=== PATIENT | female | born 1950 | race Caucasian/White ===

== ENCOUNTER 2017-09-02 10:31 | Inpatient (IN) | payer OTHER ==
--- NOTE | 2017-09-02 11:21 | ED ---
Lower Extremity - HPI Summary HPI Summary: Patient here with prolonged redness, swelling and pain of her left lower extremity. Reports this started on Monday with an area of redness around her medial/proximal tibial area on LL. She was seen by PCP who diagnosed her with cellulitis and started her on Keflex which she's been taking ever since. She reports the redness initially spread from the medial/proximal tibial area down the leg and up into her posterior thigh - admits the redness and swelling has stopped progressing in her thigh since taking Keflex however she has more pronounced area of redness and swelling where symptoms initially started along her proximal/medial tibial area. She started with a fever of 102 Fahrenheit however this is been reducing each day. Additionally she took oxycodone prior to arrival today for pain which she reports is helping. She denies pain into groin, chest pain, shortness of breath, cough, back pain him a increased heart rate. No previous history of blood clots or pulmonary embolism. She has a chronic condition of her bilateral lower extremity causing skin discoloration which she reports happened after taking a course of meloxicam in the past. She DEVELOPED ACUTE BRIGHT RED SKIN OF HER LOWER EXTREMITIES FOLLOWED BY ULCERATIONS AND THIS WAS DECIDED TO BE AN ALLERGY TO MELOXICAM. SHE WAS FOLLOWED BY THE WOUND CLINIC FOR PERIOD OF TIME UNTIL acute wounds healed however she continues to have bashir indurated and swollen lower extremities. She takes furosemide and spironolactone to control her lower extremity edema routinely. Additionally she reports she has a history of diabetes for which she takes glipizide and byetta injection her glucose levels have been in the 150s which is good for her. She denies any fast increasing glucose levels since her lower extremity symptoms started. - History of Current Complaint Chief Complaint: EDExtremityLower Stated Complaint: LEFT KNEE PAIN Time Seen by Provider: 09/02/17 10:37 Hx Obtained From: Patient, Family/Order Booker - Daughter Pain Intensity: 10 - Allergies/Home Medications Allergies/Adverse Reactions: Allergies Allergy/AdvReac Type Severity Reaction Status Date / Time morphine Allergy Severe Anaphylatic Verified 09/02/17 10:33 Shock meloxicam Allergy Rash Verified 09/02/17 10:33 Penicillins Allergy Swelling Verified 09/02/17 10:33 sulfamethoxazole Allergy Unknown Verified 09/02/17 10:33 [From Bactrim] Reaction Details trimethoprim [From Bactrim] Allergy Unknown Verified 09/02/17 10:33 Reaction Details aspirin AdvReac CIRRHOSIS Verified 09/02/17 10:33 erythromycin base AdvReac Vomiting Verified 09/02/17 10:33 NSAIDS (Non-Steroidal AdvReac CIRRHOSIS Verified 09/02/17 10:33 Anti-Inflamma spironolactone AdvReac Unknown Verified 09/02/17 10:33 [From Aldactone] Reaction Details Sulfa (Sulfonamide AdvReac GI Upset Verified 09/02/17 10:33 Antibiotics) Home Medications: Home Medications Furosemide TAB* [Lasix TAB*] 80 mg PO TID 09/02/17 [History Confirmed 09/02/17] Insulin Glargine,Hum.rec.anlog [Basagljonnie Schilling] 20 unit SC DAILY@2100 [History Confirmed 09/02/17] PMH/Surg Hx/FS Hx/Imm Hx Previously Healthy: No - cellulitis LLE Endocrine/Hematology History: Reports: Hx Diabetes Cardiovascular History: Reports: Hx Hypertension Denies: Hx Pacemaker/ICD, Other Cardiovascular Problems/Disorders Respiratory History: Denies: Hx Chronic Obstructive Pulmonary Disease (COPD) GI History: Reports: 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, Hx Gastroesophageal Reflux Disease, Other GI Disorders - Esophageal varices History: Denies: Hx Renal Disease Musculoskeletal History: Reports: Hx Arthritis, Hx Back Problems - lumbar fusion in 1990, Other Musculoskeletal History - Restless leg syndrome Denies: Hx Osteoporosis Sensory History: Reports: Hx Cataracts - bilat, Hx Contacts or Glasses Denies: Hx Hearing Aid Opthamlomology History: Reports: Hx Cataracts - bilat, Hx Contacts or Glasses Neurological History: Reports: Hx Transient Ischemic Attacks (TIA) Psychiatric History: Reports: Hx Anxiety, Hx Depression Denies: Hx Panic Disorder - Cancer History Hx Chemotherapy: No Hx Radiation Therapy: No - Surgical History Surgery Procedure, Year, and Place: LUMBAR SPINAL FUSION 1990, tonsillectomy. TUBAL LIGATION. WISDOM TEETH. [facility] CATARACTS Hx Anesthesia Reactions: No Infectious Disease History: No Infectious Disease History: Denies: Hx of Known/Suspected MRSA, Traveled Outside the [place] in Last 30 Days - Family History Known Family History: Positive: Diabetes - Mother - Social History Lives: With Family - daughter Alcohol Use: None Alcohol Amount: Hx ETOH abuse, none currently Hx Substance Use: No Substance Use Type: Reports: None Hx Tobacco Use: Yes - not currently Smoking Status (MU): Former Smoker Type: Cigarettes Amount Used/How Often: 5 CIGS/DAY Length of Time of Smoking/Using Tobacco: 30 years Have You Smoked in the Last Year: Yes Review of Systems Positive: Fever. Negative: Chills, Fatigue Eyes: Negative ENT: Negative Cardiovascular: Negative Respiratory: Negative Gastrointestinal: Negative Positive: no symptoms reported Positive: Edema Skin: Other - cellulitis Neurological: Negative Psychological: Normal All Other Systems Reviewed And Are Negative: Yes Physical Exam Triage Information Reviewed: Yes Vital Signs On Initial Exam: Initial Vitals Temp Pulse Resp BP Pulse Ox 100.6 F 102 20 117/60 88 09/02/17 10:32 09/02/17 10:32 09/02/17 10:32 09/02/17 10:32 09/02/17 10:32 Vital Signs Reviewed: Yes Appearance: Positive: Well-Appearing, Pain Distress - mild, Obese Skin: Positive: Warm, Skin Color Reflects Adequate Perfusion, Dry - B/L LE ruddiness w/ thick skin - Lt LE w/ warm bright red tissue, most prominent about the medial proximal tibial region - no drainage, no vesicles but has early signs of superficial skin breakdown in this area - TTP Head/Face: Positive: Normal Head/Face Inspection Eyes: Positive: EOMI ENT: Positive: Hearing grossly normal Respiratory/Lung Sounds: Positive: Breath Sounds Present Cardiovascular: Positive: Pulses are Symmetrical in both Upper and Lower Extremities, Leg Edema Left Abdomen Description: Positive: Other: - full Musculoskeletal: Positive: Normal, Strength/ROM Intact - no knee pain or stiffness Neurological: Positive: Normal, Sensory/Motor Intact, Alert, Oriented to Person Place, Time, CN Intact II-III Psychiatric: Positive: Normal Diagnostics - Vital Signs Vital Signs Temp Pulse Resp BP Pulse Ox 09/02/17 10:32 100.6 F 102 20 117/60 88 - Laboratory Result Diagrams: 09/02/17 11:18 09/02/17 11:18 Lab Statement: Any lab studies that have been ordered have been reviewed, and results considered in the medical decision making process. Lower Extremity Course/Dx - Course Course Of Treatment: Labs and vitals indicate patient meets sepsis criteria therefore antibiotics and fluids were ordered. Fluids were provided under max per weight as patient is obese (30 mg/kg may overestimate her actual need) and she has fluid issues with her lower extremities/cirrhosis - possible ab acsites) . Her labs do indicate she is dry - 1L ordered now and discussed w/ Dr. Thomas for f/u as she will be admitted to [facility] in stable condition. Clindamycin was also added to cover MRSA as she has PCN allergy. U/S is neg for DVT, phlebitis. Pt and daughter agree w/ plan. NOTE: diabetic diet ordered for pt who is requesting lunch. Critical care time: 20 minutes - Diagnoses Provider Diagnoses: Left leg cellulitis Discharge - Sign-Out/Discharge Documenting (check all that apply): Discharge/Admit/Transfer - Discharge Plan Condition: Stable Disposition: ADMITTED TO [facility] Referrals: Estrada Richmond MD [Primary Care Provider] - - Billing Disposition and Condition Condition: STABLE Disposition: HOSP-[facility]
[2017-09-02 11:30] LABS: ABS Basophils 0.1 10^3/ul (0-0.2); ABS Eosinophils 0.2 10^3/ul (0-0.6); ABS Lymphocytes 0.7 10^3/ul (1.0-4.8); ABS Monocytes 0.4 10^3/ul (0-0.8); ABS Neutrophils 5.3 10^3/ul (1.5-7.7); ABS Nucleated RBC 0 10^3/ul; Eosinophil % 2.4 % (0-6); Hematocrit 37 % (35-47); Hemoglobin 12.2 g/dl (12.0-16.0); Lymphocyte % 10.3 % (25-47); Mean Corpuscular HGB Conc 33 g/dl (31-36); Mean Corpuscular Hemoglobin 31 pg (27-31); Mean Corpuscular Volume 93 fL (80-97); Mean Platelet Volume 7.7 um3 (7.4-10.4); Nucleated Red Blood Cells % 0.1; Platelet Count 136 10^3/ul (150-450); Red Blood Count 3.93 10^6/ul (4.0-5.4); Red Cell Distribution Width 17 % (10.5-15); White Blood Count 6.6 10^3/ul (3.5-10.8)
[2017-09-02 11:38] LABS: INR 1.3 (0.77-1.02)
[2017-09-02 11:47] LABS: EGFR Non-African American 82.9 (>60)
[2017-09-02] MEDS ORDERED: NS 0.9% 1000 ML* 1,000 ML IV ONE (11:51)
--- NOTE | 2017-09-02 12:12 | RAD ---
Indication: Left leg edema. Duplex Doppler sonography of the deep venous system of the left lower extremity deep venous system was performed. Bilaterally the common femoral veins appear patent and compressible. Left proximal greater saphenous vein, proximal deep femoral vein, femoral vein, popliteal vein, posterior tibial veins appear patent and compressible. Peroneal veins are not visualized. IMPRESSION: NO EVIDENCE OF DEEP VENOUS THROMBOSIS IS IDENTIFIED. PERONEAL VEINS NOT VISUALIZED.
[2017-09-02] MEDS ORDERED: Clindamycin 600 MG IVPREMIX(* 600 MG/50 ML SDV IV ONE (12:21)
--- NOTE | 2017-09-02 13:06 | RAD ---
Indication: Sepsis. 2 views of the chest demonstrates no mediastinal shift. Heart is of normal size and configuration. Mild vascular congestion is noted. No pneumonia is identified. Comparison is made with previous exam dated January 10, 2016. IMPRESSION: Mild vascular congestion without pneumonia.
[2017-09-02 13:10] LABS: Urine Appearance Clear; Urine Blood Negative (Negative); Urine Color Yellow; Urine Ketones Negative (Negative); Urine Protein Negative (Negative); Urine Specific Gravity 1.009 (1.010-1.030); Urine Urobilinogen Negative (Negative)
[2017-09-02] MEDS ORDERED: Dextrose 50% Syringe 50 ML* 25 GM/50 ML SYRINGE IV PUSH PRN (13:45)
[2017-09-02] MEDS ORDERED: oxyCODONE TAB* 5 MG TAB PO PRN (13:48)
--- NOTE | 2017-09-02 14:57 | RAD ---
Indication: Evaluate for ascites. Real-time sonography of the right upper quadrant was performed. No ascites is noted. IMPRESSION: NO ASCITES IS NOTED.
[2017-09-02] MEDS: Potassium Chlor TAB* 20 MEQ TAB.ER PO SCH ×2 (15:59→20:36)
[2017-09-02] MEDS: Heparin VIAL(*) 5000 UNITS/ML VIAL (FIVE THOUSAND) SUBCUT SCH ×2 (15:59→21:26)
[2017-09-02] MEDS: fentaNYL PATCH 12 MCG/HR TRANSDERM SCH (16:00)
[2017-09-02] MEDS ORDERED: Pramipexole TAB* 0.125 MG PO SCH (18:00)
[2017-09-02] MEDS: Insulin LISPRO* 1 UNITS UNIT SUBCUT SCH (18:19)
[2017-09-02] MEDS: fentaNYL Patch Check Q Shift 1 NOTE SCH (19:25)
--- NOTE | 2017-09-02 19:25 | HP ---
HISTORY AND PHYSICAL: DATE OF ADMISSION: 09/02/17 PRIMARY CARE PROVIDER: Dr. Estrada Richmond. ATTENDING PHYSICIAN: Dr. Rosenda Thomas * (dictated by Franny Alvarado NP). CHIEF COMPLAINT: Left lower extremity redness, failure of outpatient antibiotic. HISTORY OF PRESENT ILLNESS: Ms. Syed is a 66-year-old female with past medical history significant for diabetes mellitus, hypertension, alcoholic cirrhosis, GERD, arthritis, restless legs syndrome, history of TIA, anxiety and depression, who states that she has been in her usual state of health with the exception of a left lower extremity redness. The patient denies any trauma or injury to her left leg. She states that approximately 5 days ago, she was seen by her primary care provider, Dr. Richmond, who started her on Keflex for a cellulitis in that leg. The patient states that she had a temperature max of 102 a few days ago. She denies any chills. She reports continued fevers. The patient states that over the last 5 days, the redness that initially started medial and proximal to her tibial area has now increased up her posterior thigh and she has increased redness and swelling. The patient also reports having a chronic skin condition to both lower extremities causing skin discoloration that she reports developed after taking meloxicam in the past. She has been followed by the wound clinic previously and told the wounds in her lower extremities were healed, but she continues to have discoloration in her legs. She takes furosemide and spironolactone due to her cirrhosis. She routinely follows with Dr. Suarez with Gastroenterology. The patient states that her glucose levels have been well controlled recently with glucoses in the 150s. The patient denies any chest pain, cough, shortness of breath, nausea, vomiting , or diarrhea. She reports that her stomach feels off a couple of days ago, but this now feels better. She reports abdominal swelling over the last 3 to 4 years since she was diagnosed with cirrhosis. She states that initially she had a paracentesis with several liters taken off, but has not had a paracentesis since. She feels as though her abdomen is large and feels a lot of fluid. She feels as though this some times is makes difficult for her to breath. Due to all of her symptoms, she presented to the emergency room for further evaluation. While in the emergency room, the patient received a liter of normal saline. She did not receive her full fluid bolus recommendations of 2600 mL bolus due to her history of leg swelling as to not fluid overload her. She was given IV clindamycin and blood cultures were drawn. She had a chest x-ray showing mild vascular congestion. She had a left lower extremity Doppler showing no DVT. She had an EKG without significant findings. Lactic acid is mildly elevated at 2.4. Her other labs are unremarkable. She has no leukocytosis. The hospitalists were asked to evaluate the patient for admission. PAST MEDICAL HISTORY: 1. Diabetes mellitus. 2. Hypertension. 3. Alcoholic cirrhosis. 4. GERD. 5. Arthritis. 6. Restless legs syndrome. 7. History of TIA. 8. Anxiety/depression. PAST SURGICAL HISTORY: 1. Status post wisdom tooth extraction. 2. Status post lumbar fusion. 3. Status post tonsillectomy. 4. Status post tubal ligation. 5. Status post bilateral cataract extractions. HOME MEDICATIONS: Include: 1. Spironolactone 100 mg oral 3 times daily. 2. Mirapex 0.125 mg oral every evening. 3. Potassium chloride 20 mEq oral 3 times daily. 4. Protonix 20 mg oral daily. 5. Paxil 20 mg oral daily. 6. Remeron 30 mg oral daily at bedtime. 7. Lactulose 45 mL oral daily at bedtime. 8. Furosemide 80 mg oral 3 times daily. 9. Furosemide 325 mg oral daily. 10. Gabapentin 600 mg oral twice daily. 11. Vitamin D 2000 units oral daily. 12. Calcium carbonate 600 mg oral twice daily. 13. Ocuvite 1 tablet oral daily. 14. Fosamax 70 mg oral weekly. 15. Magnesium chloride 1 tablet oral twice daily. 16. Lantus KwikPen 20 units subcutaneous daily. 17. Oxycodone 10 mg oral every 6 hours as needed for pain. 18. Glipizide 5 mg oral twice daily. 19. Fentanyl patch 12 mcg transdermal every 72 hours. 20. Zinc 50 mg oral twice daily. 21. Vitamin E 200 units oral daily. 22. Triamcinolone 0.1% cream applied topically daily. ALLERGIES: MORPHINE caused anaphylactic shock, MELOXICAM causes rash, PENICILLIN causes swelling, BACTRIM unknown. She does not take aspirin or NSAIDs due to her cirrhosis. ERYTHROMYCIN causes vomiting. SULFA causes GI upset. FAMILY HISTORY: The patient denies any family history of coronary artery disease. Her mother has a history of diabetes mellitus in addition to her maternal grandmother. No family history of cancer. Her father passed from " old age." SOCIAL HISTORY: The patient is a former smoker. She quit smoking approximately 1-1/2 years ago, prior to that she had a 30-year smoking history. She is a former alcoholic and she has not drink alcohol in 4 years. She denies recreational drug use. Her daughter, Keri Monaco will be her surrogate decision maker in the event she is unable to make decisions for herself. REVIEW OF SYSTEMS: I performed an 11-point review of systems. All the pertinent positives and negatives are mentioned in the history of present illness. The remaining review of systems are negative. PHYSICAL EXAMINATION GENERAL APPEARANCE: The patient is alert, pleasant, and appears to be in no acute distress. VITAL SIGNS: Temperature 100.6, heart rate 90, respiratory rate 20, O2 sat 88% on room air, blood pressure 168/52. HEENT: Normocephalic, atraumatic. Pupils are equal and reactive to light. Extraocular movements are intact. RESPIRATORY: There is no accessory muscle use. The lungs are clear to auscultation bilaterally. CARDIOVASCULAR: Regular rate and rhythm. S1 and S2 present. There are no murmurs, rubs, or gallops heard. ABDOMEN: Soft, nontender, large and gravid appearing. There are bowel sounds present x4. There is minimal fluid wave noted. EXTREMITIES: There is 1 to 2+ bilateral lower extremity edema, left worse than the right. DP and PT pulses are 1+ and symmetric. MUSCULOSKELETAL: There is no clubbing or cyanosis noted. The patient exhibits good strength in all extremities. NEUROLOGICAL: The patient is alert and oriented x4. Cranial nerves II through XII are grossly intact. PSYCHOLOGICAL: The patient is calm and cooperative. SKIN: The patient has bilateral lower extremity discoloration from her knees down, it is purplish-red in color. Her left lower extremity though is warm to the touch. She has erythema extending to her posterior thigh and up into her medial thigh. DIAGNOSTIC STUDIES/LABORATORY DATA: Sodium 130, potassium 4.5, chloride 105, CO2 21, BUN 21, creatinine 0.71, glucose 210. White blood cell count 6.6, hemoglobin 12.12, hematocrit 37, platelet count 136. INR 1.30. Lactic acid 2.4. CRP 83.73. Troponin 0.00. Urinalysis is negative. EKG shows a sinus rhythm with a rate of 80. No acute signs of ischemia. This EKG is similar to previous EKG from 01/10/16. Chest x-ray from today. Radiologist's impression: Mild vascular congestion without pneumonia. Left lower extremity venous Doppler study from today. Radiologist's impression : No evidence for deep venous thrombosis is identified. Perineal veins not visualized. IMPRESSION: Ms. Syed is a 66-year-old female with past medical history significant for diabetes mellitus, hypertension, alcoholic cirrhosis, gastroesophageal reflux disease, arthritis, restless legs syndrome, history of transient ischemic attack, anxiety and depression, who presents to the emergency room with cellulitis that has failed outpatient management. She will be admitted as an observation for cellulitis with associated sepsis. ASSESSMENT/PLAN: 1. Cellulitis of the left lower extremity with associated sepsis. The patient is meeting sepsis criteria according to SIRS criteria with low-grade temp of 100.6, tachycardia. and no meeting QSofa criteria at this time. She received a liter of fluids in the emergency room. I am not going to give her further fluids. In total, she is supposed to get approximately 2600 mL, but with her history of cirrhosis and she already has a significant amount of lower extremity and abdominal edema, I do not believe that she will tolerate aggressive IV fluid resuscitation. She has had blood cultures drawn. Discontinue her oral Keflex and place her on IV clindamycin. There are no open areas and no signs of abscesses in her lower extremity. DVT has been ruled out. She has mild lactic acidosis. We will recheck her lactic acid after her liter of fluids. She also has elevated CRP of 83.73. 2. Thrombocytopenia. The patient has chronic thrombocytopenia I suspect secondary to her liver disease. We will closely follow this while she is on heparin. 3. Diabetes mellitus. The patient will have glucose checks a.c. and h.s. She will be continued on her home Lantus dosing and will be placed on lispro sliding scale. We are going to hold her glipizide while she is in the hospital. 4. Alcoholic cirrhosis. We are going to continue the patient on her home spironolactone and furosemide in addition to her lactulose. She feels as like she has a lot of fluid in her abdomen, I will get a abdominal ultrasound to evaluate for ascites. 5. Hypertension. The has been normotensive in the emergency room. We will continue her spironolactone and Lasix. 6. Chronic pain. The patient will be continued on her home fentanyl patch and oxycodone. 7. Osteoporosis. We are going to hold the patient's Fosamax while she is in the hospital. 8. Anxiety and depression. The patient will be continued on her home Paxil and Remeron. 9. Restless legs syndrome. She will be continued on her home Mirapex. 10. Gastroesophageal reflux disease. She will be continued on a PPI. 11. Fluids, electrolytes, and nutrition. The patient will be on consistent carbohydrate diet. 12. Code status. Do not resuscitate. She has a MOLST on file. 13. DVT prophylaxis. The patient is at highest risk. She will be on subcu heparin, not placed her on TEDs or SCDs due to the significant lower extremity edema that she currently has. 14. Disposition. Inpatient. TIME SPENT: Time for this admission was approximately 60 minutes, greater than half of that was spent [id number] with the patient and daughter discussing medications, past medical history, the events leading up to her arrival today, performing a physical examination. The case has been reviewed with the attending , Dr. Thomas, who agrees with the plan of care. Reviewed by HELGA PATTERSON 09/02/17 2018 [id number] #: [id number] SHILA
[2017-09-02] MEDS: Furosemide TAB* 40 MG PO SCH (20:34)
[2017-09-02] MEDS: Clindamycin 600 MG IVPREMIX(* 600 MG/50 ML SDV IV SCH (20:34)
[2017-09-02] MEDS: Gabapentin CAP(*) 300 MG PO SCH (20:34)
[2017-09-02] MEDS: Spironolactone TAB* 25 MG PO SCH (20:34)
[2017-09-02] MEDS: oxyCODONE TAB* 5 MG TAB PO PRN (20:35)
[2017-09-02] MEDS: Mirtazapine TAB* 15 MG PO SCH (20:35)
[2017-09-02] MEDS: Magnesium Chloride EC TAB* 64 MG PO SCH (20:36)
[2017-09-02] MEDS: Insulin GLARGINE(*) 1 UNITS UNIT SUBCUT SCH (20:36)
[2017-09-02] MEDS: Calcium Carbonate TAB* 1250 MG (CALCIUM 500 MG) PO SCH (21:19)
[2017-09-02] MEDS: PARoxetine HCL TAB* 20 MG PO SCH (21:20)
[2017-09-02] MEDS: Pramipexole TAB* 0.125 MG PO SCH (21:31)
[2017-09-03] MEDS: Clindamycin 600 MG IVPREMIX(* 600 MG/50 ML SDV IV SCH (04:58)
[2017-09-03] MEDS: Heparin VIAL(*) 5000 UNITS/ML VIAL (FIVE THOUSAND) SUBCUT SCH ×3 (05:18→22:04)
[2017-09-03] MEDS: fentaNYL Patch Check Q Shift 1 NOTE SCH ×2 (07:09→19:14)
[2017-09-03 08:19] LABS: Hematocrit 37 % (35-47); Hemoglobin 12.4 g/dl (12.0-16.0); Mean Corpuscular HGB Conc 33 g/dl (31-36); Mean Corpuscular Hemoglobin 31 pg (27-31); Mean Corpuscular Volume 92 fL (80-97); Mean Platelet Volume 7.6 um3 (7.4-10.4); Platelet Count 138 10^3/ul (150-450); Red Blood Count 4.03 10^6/ul (4.0-5.4); Red Cell Distribution Width 17 % (10.5-15); White Blood Count 5.4 10^3/ul (3.5-10.8)
[2017-09-03 08:21] LABS: EGFR Non-African American 73.3 (>60)
[2017-09-03 08:23] LABS: ABS Basophils 0 10^3/ul (0-0.2); ABS Eosinophils 0.2 10^3/ul (0-0.6); ABS Lymphocytes 0.7 10^3/ul (1.0-4.8); ABS Monocytes 0.4 10^3/ul (0-0.8); ABS Nucleated RBC 0 10^3/ul; Eosinophil % 3.1 % (0-6); Lymphocyte % 13.8 % (25-47); Nucleated Red Blood Cells % 0.2
[2017-09-03] MEDS: Cholecalciferol TAB* 1000 UNITS PO SCH (08:41)
[2017-09-03] MEDS: Furosemide TAB* 40 MG PO SCH ×3 (08:41→21:58)
[2017-09-03] MEDS: Omeprazole CAP* 20 MG PO SCH (08:41)
[2017-09-03] MEDS: Ferrous Sulfate TAB* 325 MG PO SCH (08:41)
[2017-09-03] MEDS: Gabapentin CAP(*) 300 MG PO SCH ×2 (08:41→21:59)
[2017-09-03] MEDS: Magnesium Chloride EC TAB* 64 MG PO SCH ×2 (08:41→21:59)
[2017-09-03] MEDS: oxyCODONE TAB* 5 MG TAB PO PRN (08:41)
[2017-09-03] MEDS: Spironolactone TAB* 25 MG PO SCH ×3 (08:42→21:58)
[2017-09-03] MEDS: Potassium Chlor TAB* 20 MEQ TAB.ER PO SCH ×3 (08:42→22:00)
[2017-09-03] MEDS: Calcium Carbonate TAB* 1250 MG (CALCIUM 500 MG) PO SCH ×2 (08:42→21:59)
[2017-09-03] MEDS: Vitamin E CAP* 200 UNITS PO SCH (08:47)
[2017-09-03] MEDS: Insulin LISPRO* 1 UNITS UNIT SUBCUT SCH ×3 (08:47→18:13)
[2017-09-03] MEDS ORDERED: PARoxetine HCL TAB* 20 MG PO SCH (09:00)
--- NOTE | 2017-09-03 10:00 | PN ---
Subjective Date of Service: 09/03/17 Interval History: Feel as if leg is better but area of erythema is extending beyond demarcation no additional fevers/chills no sob/cp appetite ok Objective Active Medications: Calcium Carbonate (Calcium Carbonate Tab*) 1,250 mg PO BID [facility] [place] Last Admin: 09/03/17 08:42 Dose: 1,250 mg Cholecalciferol (Vitamin D Tab*) 2,000 units PO DAILY [facility] [place] Last Admin: 09/03/17 08:41 Dose: 2,000 units Dextrose (D50w Syringe 50 Ml*) 12.5 gm IV PUSH .FOR FS < 60 - SS PRN PRN Reason: FS < 60 Fentanyl (Duragesic Patch 12 Mcg/Hr *) 12 mcg TRANSDERM Q72H [facility] [place] Last Admin: 09/02/17 16:00 Dose: 12 mcg Ferrous Sulfate (Ferrous Sulfate Tab*) 325 mg PO DAILY [facility] [place] Last Admin: 09/03/17 08:41 Dose: 325 mg Furosemide (Lasix Tab*) 80 mg PO TID [facility] [place] Last Admin: 09/03/17 08:41 Dose: 80 mg Gabapentin (Neurontin Cap(*)) 600 mg PO BID [facility] [place] Last Admin: 09/03/17 08:41 Dose: 600 mg Heparin Sodium (Porcine) (Heparin Vial(*)) 5,000 units SUBCUT Q8HR [facility] [place] Last Admin: 09/03/17 05:18 Dose: 5,000 units Vancomycin HCl 1,500 mg/ (Sodium Chloride) 250 mls @ 166.667 mls/hr IVPB ONCE [facility] [place] PRN Reason: Protocol Stop: 09/03/17 23:59 Insulin Glargine (Lantus(*)) 20 units SUBCUT DAILY@2100 [facility] [place] Last Admin: 09/02/17 20:36 Dose: 20 units Insulin Human Lispro (Humalog*) 0 - 15 units SUBCUT AC [facility] [place] PRN Reason: Protocol Last Admin: 09/03/17 08:47 Dose: Not Given Lactulose (Lactulose*) 45 ml PO BEDTIME [facility] [place] Last Admin: 09/02/17 20:34 Dose: 45 ml Magnesium Chloride (Slow Mag Ec Tab*) 64 mg PO BID [facility] [place] Last Admin: 09/03/17 08:41 Dose: 64 mg Mirtazapine (Remeron Tab*) 30 mg PO BEDTIME [facility] [place] Last Admin: 09/02/17 20:35 Dose: 30 mg Omeprazole (Prilosec Cap*) 20 mg PO DAILY@0730 [facility] [place] Last Admin: 09/03/17 08:41 Dose: 20 mg Oxycodone HCl (Roxycodone Tab*) 10 mg PO Q6H PRN PRN Reason: PAIN - MODERATE TO SEVERE Last Admin: 09/03/17 08:41 Dose: 10 mg Oxycodone HCl (Roxycodone Tab*) 5 mg PO Q6H PRN PRN Reason: PAIN - MILD TO MODERATE Last Admin: 09/03/17 08:42 Dose: 5 mg Paroxetine HCl (Paxil Tab*) 20 mg PO 2100 [facility] [place] Last Admin: 09/02/17 21:20 Dose: 20 mg Pharmacy Profile Note (Fentanyl Patch Check Q Shift) 1 note N/A 0700,1900 [facility] [place] Last Admin: 09/03/17 07:09 Dose: 1 note Potassium Chloride (Klor Con Er Tab*) 20 meq PO TID [facility] [place] Last Admin: 09/03/17 08:42 Dose: 20 meq Pramipexole Dihydrochloride (Mirapex Tab*) 0.125 mg PO 2100 [facility] [place] Last Admin: 09/02/17 21:31 Dose: 0.125 mg Spironolactone (Aldactone Tab*) 100 mg PO TID [facility] [place] Last Admin: 09/03/17 08:42 Dose: 100 mg Vitamin E (Vitamin E Cap*) 200 units PO DAILY [facility] [place] Last Admin: 09/03/17 08:47 Dose: 200 units Vital Signs - 8 hr 09/03/17 09/03/17 09/03/17 04:15 07:37 07:52 Temperature 97.9 F 97.7 F Pulse Rate 93 92 Respiratory 16 15 Rate Blood Pressure 113/69 112/65 (mmHg) O2 Sat by Pulse 92 92 93 Oximetry 09/03/17 09/03/17 08:41 08:42 Temperature Pulse Rate Respiratory 18 18 Rate Blood Pressure (mmHg) O2 Sat by Pulse Oximetry Oxygen Devices in Use Now: None Appearance: NAD, sitting in chair Eyes: No Scleral Icterus, PERRLA Ears/Nose/Mouth/Throat: NL Teeth, Lips, Gums, Clear Oropharnyx Neck: NL Appearance and Movements; NL JVP, Trachea Midline Respiratory: Symmetrical Chest Expansion and Respiratory Effort, Clear to Auscultation Cardiovascular: RRR Abdominal: No Hepatosplenomegaly, - - distended, NTTP, +bs Lymphatic: No Cervical Adenopathy Extremities: - - tense pitting edema Skin: - - b/l le erytehma, right is warm to touch and extending up lateral thigh to buttocks and medial thigh to groin Neurological: Alert and Oriented x 3 Result Diagrams: 09/03/17 07:59 09/03/17 07:59 Assess/Plan/Problems-Billing Assessment: 66 F h/o DM2, cirrhosis, chronic pain p/w failed outpatient therapy for left leg cellulitis associated with sepsis - Patient Problems (1) Cellulitis Comment: Associated with spesi on presentation (fever/tachycardia) now resolved change clinda to vanc (decreased c diff risk) and area of erythema beyond demarcation - I am not sure if this is an expanding area or how it was marked by RN initially elevate leg (2) Chronic pain Comment: c/w fentanyl patch and PO narcotics (3) Cirrhosis Comment: c/w aldactone and lasix (4) Diabetes Comment: lantus and lispro SS (5) DVT prophylaxis Comment: HSQ Status and Disposition: inpatient for IV abx
[2017-09-03] MEDS ORDERED: Vancomycin(*) 1,500 MG in NS 0.9% 250 ML* 250 ML IVPB ONE (11:00)
[2017-09-03] MEDS ORDERED: Vancomycin per Pharmacy* NOTE FOLLOW UP PRN (11:22)
[2017-09-03] MEDS: Vancomycin(*) 1,000 MG in NS 0.9% 250 ML* 250 ML IVPB SCH (18:15)
[2017-09-03] MEDS: PARoxetine HCL TAB* 20 MG PO SCH (21:59)
[2017-09-03] MEDS: Mirtazapine TAB* 15 MG PO SCH (21:59)
[2017-09-03] MEDS: Pramipexole TAB* 0.125 MG PO SCH (22:00)
[2017-09-03] MEDS: Insulin GLARGINE(*) 1 UNITS UNIT SUBCUT SCH (22:03)
[2017-09-04] MEDS: Vancomycin(*) 1,000 MG in NS 0.9% 250 ML* 250 ML IVPB SCH ×2 (02:50→09:47)
[2017-09-04] MEDS: Heparin VIAL(*) 5000 UNITS/ML VIAL (FIVE THOUSAND) SUBCUT SCH ×3 (05:23→21:24)
[2017-09-04 06:15] LABS: ABS Basophils 0 10^3/ul (0-0.2); ABS Eosinophils 0.2 10^3/ul (0-0.6); ABS Lymphocytes 0.7 10^3/ul (1.0-4.8); ABS Monocytes 0.4 10^3/ul (0-0.8); ABS Neutrophils 4.5 10^3/ul (1.5-7.7); ABS Nucleated RBC 0 10^3/ul; Eosinophil % 3.9 % (0-6); Hematocrit 34 % (35-47); Hemoglobin 11.5 g/dl (12.0-16.0); Lymphocyte % 12.6 % (25-47); Mean Corpuscular HGB Conc 33 g/dl (31-36); Mean Corpuscular Hemoglobin 31 pg (27-31); Mean Corpuscular Volume 93 fL (80-97); Mean Platelet Volume 7.8 um3 (7.4-10.4); Nucleated Red Blood Cells % 0.2; Platelet Count 127 10^3/ul (150-450); Red Cell Distribution Width 17 % (10.5-15); White Blood Count 5.9 10^3/ul (3.5-10.8)
[2017-09-04 06:31] LABS: EGFR Non-African American 60.7 (>60)
[2017-09-04] MEDS: fentaNYL Patch Check Q Shift 1 NOTE SCH ×2 (07:22→19:41)
[2017-09-04] MEDS: Gabapentin CAP(*) 300 MG PO SCH ×2 (09:38→21:19)
[2017-09-04] MEDS: Omeprazole CAP* 20 MG PO SCH (09:39)
[2017-09-04] MEDS: Furosemide TAB* 40 MG PO SCH ×3 (09:39→21:25)
[2017-09-04] MEDS: Spironolactone TAB* 25 MG PO SCH ×3 (09:39→21:18)
[2017-09-04] MEDS: Cholecalciferol TAB* 1000 UNITS PO SCH (09:39)
[2017-09-04] MEDS: Vitamin E CAP* 200 UNITS PO SCH (09:39)
[2017-09-04] MEDS: Magnesium Chloride EC TAB* 64 MG PO SCH ×2 (09:39→21:20)
[2017-09-04] MEDS: Calcium Carbonate TAB* 1250 MG (CALCIUM 500 MG) PO SCH ×2 (09:40→21:21)
[2017-09-04] MEDS: Potassium Chlor TAB* 20 MEQ TAB.ER PO SCH ×3 (09:40→21:20)
[2017-09-04] MEDS: Insulin LISPRO* 1 UNITS UNIT SUBCUT SCH ×3 (09:40→17:58)
[2017-09-04] MEDS ORDERED: Vancomycin Trough Check NOTE FOLLOW UP ONE (10:00)
[2017-09-04] MEDS: diPHENhydraMINE PO* 25 MG PO PRN ×3 (10:01→21:36)
[2017-09-04] MEDS: Ferrous Sulfate TAB* 325 MG PO SCH (14:14)
--- NOTE | 2017-09-04 17:49 | PN ---
Subjective Date of Service: 09/04/17 Interval History: Whole-body pruritic rash after vancomycin. She feels her leg cellulitis is better and leg is less swollen. Objective Active Medications: Calcium Carbonate (Calcium Carbonate Tab*) 1,250 mg PO BID [facility] Last Admin: 09/04/17 09:40 Dose: 1,250 mg Cholecalciferol (Vitamin D Tab*) 2,000 units PO DAILY [facility] Last Admin: 09/04/17 09:39 Dose: 2,000 units Dextrose (D50w Syringe 50 Ml*) 12.5 gm IV PUSH .FOR FS < 60 - SS PRN PRN Reason: FS < 60 Diphenhydramine HCl (Benadryl Po*) 25 mg PO Q4H PRN PRN Reason: PRURITIS Last Admin: 09/04/17 14:14 Dose: 25 mg Fentanyl (Duragesic Patch 12 Mcg/Hr *) 12 mcg TRANSDERM Q72H [facility] Last Admin: 09/02/17 16:00 Dose: 12 mcg Ferrous Sulfate (Ferrous Sulfate Tab*) 325 mg PO DAILY [facility] Last Admin: 09/04/17 14:14 Dose: 325 mg Furosemide (Lasix Tab*) 80 mg PO TID [facility] Last Admin: 09/04/17 12:55 Dose: 80 mg Gabapentin (Neurontin Cap(*)) 600 mg PO BID [facility] Last Admin: 09/04/17 09:38 Dose: 600 mg Glipizide (Glucotrol Tab*) 5 mg PO BID [facility] Heparin Sodium (Porcine) (Heparin Vial(*)) 5,000 units SUBCUT Q8HR [facility] Last Admin: 09/04/17 12:55 Dose: 5,000 units Ceftriaxone Sodium 1 gm/ (Sodium Chloride) 50 mls @ 200 mls/hr IVPB Q24H [facility] Insulin Glargine (Lantus(*)) 20 units SUBCUT DAILY@2100 [facility] Last Admin: 09/03/17 22:03 Dose: 20 units Insulin Human Lispro (Humalog*) 0 - 15 units SUBCUT AC [facility] PRN Reason: Protocol Last Admin: 09/04/17 12:55 Dose: 9 unit Lactulose (Lactulose*) 45 ml PO BEDTIME [facility] Last Admin: 09/03/17 21:58 Dose: Not Given Magnesium Chloride (Slow Mag Ec Tab*) 64 mg PO BID [facility] Last Admin: 09/04/17 09:39 Dose: 64 mg Mirtazapine (Remeron Tab*) 30 mg PO BEDTIME [facility] Last Admin: 09/03/17 21:59 Dose: 30 mg Omeprazole (Prilosec Cap*) 20 mg PO DAILY@0730 [facility] Last Admin: 09/04/17 09:39 Dose: 20 mg Oxycodone HCl (Roxycodone Tab*) 10 mg PO Q6H PRN PRN Reason: PAIN - MODERATE TO SEVERE Last Admin: 09/03/17 08:41 Dose: 10 mg Oxycodone HCl (Roxycodone Tab*) 5 mg PO Q6H PRN PRN Reason: PAIN - MILD TO MODERATE Last Admin: 09/03/17 08:42 Dose: 5 mg Paroxetine HCl (Paxil Tab*) 20 mg PO 2100 [facility] Last Admin: 09/03/17 21:59 Dose: 20 mg Pharmacy Profile Note (Fentanyl Patch Check Q Shift) 1 note N/A 0700,1900 [facility] Last Admin: 09/04/17 07:22 Dose: 1 note Potassium Chloride (Klor Con Er Tab*) 20 meq PO TID [facility] Last Admin: 09/04/17 12:55 Dose: 20 meq Pramipexole Dihydrochloride (Mirapex Tab*) 0.125 mg PO 2100 [facility] Last Admin: 09/03/17 22:00 Dose: 0.125 mg Spironolactone (Aldactone Tab*) 100 mg PO TID [facility] Last Admin: 09/04/17 12:54 Dose: 100 mg Vitamin E (Vitamin E Cap*) 200 units PO DAILY [facility] Last Admin: 09/04/17 09:39 Dose: 200 units Vital Signs - 8 hr 09/04/17 09/04/17 09/04/17 10:01 11:48 12:34 Temperature 97.9 F Pulse Rate 101 Respiratory 16 18 20 Rate Blood Pressure 115/56 (mmHg) O2 Sat by Pulse 92 Oximetry 09/04/17 09/04/17 14:14 15:18 Temperature 98.2 F Pulse Rate 96 Respiratory 16 20 Rate Blood Pressure 97/49 (mmHg) O2 Sat by Pulse 93 Oximetry Oxygen Devices in Use Now: None Appearance: Alert, in a chair with both feet on the floor. In good spirits. Looks comofortable. Eyes: No Scleral Icterus Extremities: No Clubbing, Cyanosis, - - L leg sl pitting, larger than R Skin: No Nodules or Sclerosis, - - L lower leg warmer, redder than R lower leg. Both are hyperpigmented, Countless red macules over entire body. Neurological: Alert and Oriented x 3, NL Sensation Result Diagrams: 09/04/17 06:01 09/04/17 06:01 Assess/Plan/Problems-Billing Assessment: 66 F h/o DM2, cirrhosis, chronic pain p/w failed outpatient therapy for left leg cellulitis associated with sepsis - Patient Problems (1) Cellulitis Current Visit: Yes Status: Acute Code(s): L03.90 - CELLULITIS, UNSPECIFIED SNOMED Code(s): 814771149 Comment: She did not respond to 5 days of cephalexin at home. This may be due to her not knowing she should elevate her leg and the the slow response of leg cellulitis. IV ceftriaxone ordered, consider d/c home on po cefuroxime. (2) Diabetes Current Visit: Yes Status: Acute Code(s): E11.9 - TYPE 2 DIABETES MELLITUS WITHOUT COMPLICATIONS SNOMED Code(s): 42960741 Comment: lantus and lispro SS. Resume home glipizide dose. (3) Alcoholic cirrhosis of liver without ascites Current Visit: No Status: Acute Priority: High Code(s): K70.30 - ALCOHOLIC CIRRHOSIS OF LIVER WITHOUT ASCITES SNOMED Code(s): 270916961 Comment: - weight gain noted - enlarged liver without transaminitis. (4) Depression Current Visit: No Status: Chronic Priority: Medium Code(s): F32.9 - MAJOR DEPRESSIVE DISORDER, SINGLE EPISODE, UNSPECIFIED SNOMED Code(s): 10495562 Comment: Continue paroxitene, reduce mirtazapine to avoid appetite stimulation. (5) Morbid obesity Current Visit: Yes Status: Acute Code(s): E66.01 - MORBID (SEVERE) OBESITY DUE TO EXCESS CALORIES SNOMED Code(s): 444395900 Comment: BMI 40.5. Status and Disposition: inpatient for IV abx
[2017-09-04] MEDS: cefTRIAXone(*) 1 GM in NS 0.9% 50 ML* 50 ML IVPB SCH (19:38)
[2017-09-04] MEDS: glipiZIDE TAB* 5 MG PO SCH (21:19)
[2017-09-04] MEDS: PARoxetine HCL TAB* 20 MG PO SCH (21:19)
[2017-09-04] MEDS: Mirtazapine TAB* 15 MG PO SCH (21:20)
[2017-09-04] MEDS: Pramipexole TAB* 0.125 MG PO SCH (21:20)
[2017-09-04] MEDS: Insulin GLARGINE(*) 1 UNITS UNIT SUBCUT SCH (21:25)
[2017-09-05] MEDS: diPHENhydraMINE PO* 25 MG PO PRN ×5 (01:50→20:47)
[2017-09-05] MEDS: Heparin VIAL(*) 5000 UNITS/ML VIAL (FIVE THOUSAND) SUBCUT SCH ×3 (05:16→20:48)
[2017-09-05] MEDS: fentaNYL Patch Check Q Shift 1 NOTE SCH ×2 (07:01→19:08)
[2017-09-05] MEDS: Insulin LISPRO* 1 UNITS UNIT SUBCUT SCH ×3 (08:37→17:23)
[2017-09-05] MEDS: Gabapentin CAP(*) 300 MG PO SCH ×2 (08:38→20:47)
[2017-09-05] MEDS: Cholecalciferol TAB* 1000 UNITS PO SCH (08:38)
[2017-09-05] MEDS: Ferrous Sulfate TAB* 325 MG PO SCH (08:38)
[2017-09-05] MEDS: Furosemide TAB* 40 MG PO SCH ×3 (08:38→20:48)
[2017-09-05] MEDS: Potassium Chlor TAB* 20 MEQ TAB.ER PO SCH ×3 (08:38→20:46)
[2017-09-05] MEDS: Omeprazole CAP* 20 MG PO SCH (08:38)
[2017-09-05] MEDS: Spironolactone TAB* 25 MG PO SCH ×3 (08:38→20:49)
[2017-09-05] MEDS: Magnesium Chloride EC TAB* 64 MG PO SCH ×2 (08:38→20:46)
[2017-09-05] MEDS: glipiZIDE TAB* 5 MG PO SCH ×2 (08:39→20:46)
[2017-09-05] MEDS: Calcium Carbonate TAB* 1250 MG (CALCIUM 500 MG) PO SCH ×2 (08:39→20:46)
[2017-09-05] MEDS: Vitamin E CAP* 200 UNITS PO SCH (08:51)
[2017-09-05] MEDS: fentaNYL PATCH 12 MCG/HR TRANSDERM SCH (14:55)
[2017-09-05] MEDS: oxyCODONE TAB* 5 MG TAB PO PRN ×2 (15:03→20:59)
--- NOTE | 2017-09-05 16:28 | PN ---
Subjective Date of Service: 09/05/17 Interval History: No new c/o. Pruritus improved.No bowel c/o. Objective Active Medications: Calcium Carbonate (Calcium Carbonate Tab*) 1,250 mg PO BID [facility] Last Admin: 09/05/17 08:39 Dose: 1,250 mg Cholecalciferol (Vitamin D Tab*) 2,000 units PO DAILY [facility] Last Admin: 09/05/17 08:38 Dose: 2,000 units Dextrose (D50w Syringe 50 Ml*) 12.5 gm IV PUSH .FOR FS < 60 - SS PRN PRN Reason: FS < 60 Diphenhydramine HCl (Benadryl Po*) 25 mg PO Q4H PRN PRN Reason: PRURITIS Last Admin: 09/05/17 15:03 Dose: 25 mg Fentanyl (Duragesic Patch 12 Mcg/Hr *) 12 mcg TRANSDERM Q72H [facility] Last Admin: 09/05/17 14:55 Dose: 12 mcg Ferrous Sulfate (Ferrous Sulfate Tab*) 325 mg PO DAILY [facility] Last Admin: 09/05/17 08:38 Dose: 325 mg Furosemide (Lasix Tab*) 80 mg PO TID [facility] Last Admin: 09/05/17 14:55 Dose: 80 mg Gabapentin (Neurontin Cap(*)) 600 mg PO BID [facility] Last Admin: 09/05/17 08:38 Dose: 600 mg Glipizide (Glucotrol Tab*) 5 mg PO BID [facility] Last Admin: 09/05/17 08:39 Dose: 5 mg Heparin Sodium (Porcine) (Heparin Vial(*)) 5,000 units SUBCUT Q8HR [facility] Last Admin: 09/05/17 14:54 Dose: 5,000 units Ceftriaxone Sodium 1 gm/ (Sodium Chloride) 50 mls @ 200 mls/hr IVPB Q24H [facility] Last Admin: 09/04/17 19:38 Dose: 200 mls/hr Insulin Glargine (Lantus(*)) 20 units SUBCUT DAILY@2100 [facility] Last Admin: 09/04/17 21:25 Dose: 20 units Insulin Human Lispro (Humalog*) 0 - 15 units SUBCUT AC [facility] PRN Reason: Protocol Last Admin: 09/05/17 12:47 Dose: 12 unit Lactulose (Lactulose*) 45 ml PO BEDTIME [facility] Last Admin: 09/04/17 21:21 Dose: 45 ml Magnesium Chloride (Slow Mag Ec Tab*) 64 mg PO BID [facility] Last Admin: 09/05/17 08:38 Dose: 64 mg Mirtazapine (Remeron Tab*) 15 mg PO BEDTIME [facility] Last Admin: 09/04/17 21:20 Dose: 15 mg Omeprazole (Prilosec Cap*) 20 mg PO DAILY@0730 [facility] Last Admin: 09/05/17 08:38 Dose: 20 mg Oxycodone HCl (Roxycodone Tab*) 10 mg PO Q6H PRN PRN Reason: PAIN - MODERATE TO SEVERE Last Admin: 09/05/17 15:03 Dose: 10 mg Oxycodone HCl (Roxycodone Tab*) 5 mg PO Q6H PRN PRN Reason: PAIN - MILD TO MODERATE Last Admin: 09/03/17 08:42 Dose: 5 mg Paroxetine HCl (Paxil Tab*) 20 mg PO 2100 [facility] Last Admin: 09/04/17 21:19 Dose: 20 mg Pharmacy Profile Note (Fentanyl Patch Check Q Shift) 1 note N/A 0700,1900 [facility] Last Admin: 09/05/17 07:01 Dose: 1 note Potassium Chloride (Klor Con Er Tab*) 20 meq PO TID [facility] Last Admin: 09/05/17 14:55 Dose: 20 meq Pramipexole Dihydrochloride (Mirapex Tab*) 0.125 mg PO 2100 [facility] Last Admin: 09/04/17 21:20 Dose: 0.125 mg Spironolactone (Aldactone Tab*) 100 mg PO TID [facility] Last Admin: 09/05/17 14:55 Dose: 100 mg Vitamin E (Vitamin E Cap*) 200 units PO DAILY [facility] Last Admin: 09/05/17 08:51 Dose: 200 units Vital Signs - 8 hr 09/05/17 09/05/17 09/05/17 08:38 10:50 11:20 Temperature 98.4 F Pulse Rate 96 Respiratory 16 18 17 Rate Blood Pressure 114/57 (mmHg) O2 Sat by Pulse 89 Oximetry 09/05/17 09/05/17 14:55 15:03 Temperature Pulse Rate Respiratory 16 16 Rate Blood Pressure (mmHg) O2 Sat by Pulse Oximetry Oxygen Devices in Use Now: None Appearance: Alert, in a chair with both legs on her bed. In good spirits. Looks comfortable. Eyes: No Scleral Icterus Extremities: No Clubbing, Cyanosis, - - brawny (non-pitting) edema BL. L leg sl larger than R Skin: No Nodules or Sclerosis, - - Both lower legs hyperpigmented. L leg sl warmer. Total body rash 50% better. Neurological: Alert and Oriented x 3, NL Sensation Result Diagrams: 09/04/17 06:01 09/04/17 06:01 Assess/Plan/Problems-Billing Assessment: 66 F h/o DM2, cirrhosis, chronic pain p/w failed outpatient therapy for left leg cellulitis associated with sepsis - Patient Problems (1) Cellulitis Current Visit: Yes Status: Acute Code(s): L03.90 - CELLULITIS, UNSPECIFIED SNOMED Code(s): 501514276 Comment: She did not respond to 5 days of cephalexin at home. This may be due to her not knowing she should elevate her leg and the the slow response of leg cellulitis. IV ceftriaxone ordered, consider d/c home on po cefuroxime. Severe rash d/t vancomycin, improving. (2) Diabetes Current Visit: Yes Status: Acute Code(s): E11.9 - TYPE 2 DIABETES MELLITUS WITHOUT COMPLICATIONS SNOMED Code(s): 17842108 Comment: lantus and lispro SS. Resume home glipizide dose. (3) Alcoholic cirrhosis of liver without ascites Current Visit: No Status: Acute Priority: High Code(s): K70.30 - ALCOHOLIC CIRRHOSIS OF LIVER WITHOUT ASCITES SNOMED Code(s): 511716112 Comment: - weight gain noted - enlarged liver without transaminitis. (4) Depression Current Visit: No Status: Chronic Priority: Medium Code(s): F32.9 - MAJOR DEPRESSIVE DISORDER, SINGLE EPISODE, UNSPECIFIED SNOMED Code(s): 83806606 Comment: Continue paroxitene, reduce mirtazapine to avoid appetite stimulation. (5) Morbid obesity Current Visit: Yes Status: Acute Code(s): E66.01 - MORBID (SEVERE) OBESITY DUE TO EXCESS CALORIES SNOMED Code(s): 166629259 Comment: BMI 40.5. Status and Disposition: inpatient for IV abx
[2017-09-05] MEDS: cefTRIAXone(*) 1 GM in NS 0.9% 50 ML* 50 ML IVPB SCH (17:23)
[2017-09-05] MEDS: Pramipexole TAB* 0.125 MG PO SCH (20:45)
[2017-09-05] MEDS: PARoxetine HCL TAB* 20 MG PO SCH (20:46)
[2017-09-05] MEDS: Mirtazapine TAB* 15 MG PO SCH (20:47)
[2017-09-05] MEDS: Insulin GLARGINE(*) 1 UNITS UNIT SUBCUT SCH (20:48)
[2017-09-06] MEDS: diPHENhydraMINE PO* 25 MG PO PRN ×2 (03:40→09:04)
[2017-09-06] MEDS: Heparin VIAL(*) 5000 UNITS/ML VIAL (FIVE THOUSAND) SUBCUT SCH (05:51)
[2017-09-06] MEDS: fentaNYL Patch Check Q Shift 1 NOTE SCH (07:15)
[2017-09-06] MEDS: Insulin LISPRO* 1 UNITS UNIT SUBCUT SCH (08:33)
[2017-09-06] MEDS: Calcium Carbonate TAB* 1250 MG (CALCIUM 500 MG) PO SCH (09:03)
[2017-09-06] MEDS: Potassium Chlor TAB* 20 MEQ TAB.ER PO SCH (09:03)
[2017-09-06] MEDS: Omeprazole CAP* 20 MG PO SCH (09:03)
[2017-09-06] MEDS: glipiZIDE TAB* 5 MG PO SCH (09:04)
[2017-09-06] MEDS: Magnesium Chloride EC TAB* 64 MG PO SCH (09:04)
[2017-09-06] MEDS: Cholecalciferol TAB* 1000 UNITS PO SCH (09:04)
[2017-09-06] MEDS: Furosemide TAB* 40 MG PO SCH (09:04)
[2017-09-06] MEDS: Spironolactone TAB* 25 MG PO SCH (09:04)
[2017-09-06] MEDS: Vitamin E CAP* 200 UNITS PO SCH (09:04)
[2017-09-06] MEDS: Ferrous Sulfate TAB* 325 MG PO SCH (09:04)
[2017-09-06] MEDS: Gabapentin CAP(*) 300 MG PO SCH (09:05)
[2017-09-06 09:33] VITALS: BP 118/65
--- NOTE | 2017-09-06 10:31 | PN ---
Progress Note - Progress Note Date of Service: 09/06/17 Note: Time spent on discharge 45 minutes.
--- NOTE | 2017-09-07 06:28 | DS ---
CC: Dr. Estrada [place] * DISCHARGE SUMMARY: DATE OF ADMISSION: 09/02/17 DATE OF DISCHARGE: 09/06/17 HISTORY: This 66-year-old woman presented with left lower extremity redness. She had been on cephalexin for 5 days for cellulitis. She said she had a temperature of 102 a few days before admission. She denied chills. The redness increased up to her posterior thigh and she had some more swelling. She was treated with ceftriaxone and vancomycin. After some time in the hospital, she developed a nearly total body rash with macules from her head to her feet with some itching. The vancomycin was discontinued, ceftriaxone was continued. The rash resolved probably about 75% by the time of discharge. The patient had borderline hypoxia. She dropped to 84% with walking, and at rest, she was 88% to 90%. She did not want to have oxygen at this time but preferred to discuss this with her primary care provider. I know she quit smoking possibly 10 years ago and most likely has some degree of COPD. Her mirtazapine was decreased from 30 mg daily to 15 mg daily to reduce appetite stimulation. She was instructed to elevate the legs, which she did quite frequently while in the hospital and will continue to do at home. FINAL DIAGNOSES: 1. Cellulitis, left leg. 2. Chronic edema. 3. Morbid obesity. 4. Diabetes. 5. Alcoholic cirrhosis of the liver. 6. History of depression. 7. Vancomycin allergy. 8. Hypoxia and probable chronic obstructive pulmonary disease. DISCHARGE MEDICATIONS: 1. Diphenhydramine 25 mg every 4 hours p.r.n. 2. Mirtazapine 15 mg h.s. 3. Cefuroxime 500 mg b.i.d. for 9 days. 4. Lactulose 3 tablespoons at bedtime. 5. Potassium 20 mEq t.i.d. 6. Pramipexole 0.125 mg h.s. 7. Vitamin E 200 units daily. 8. Magnesium chloride 1 tablet b.i.d. 9. Vitamin D 2000 units daily. 10. Ferrous sulfate 325 mg daily. 11. Oxycodone 10 mg every 6 hours p.r.n. 12. Fentanyl patch 12 mcg per hour, change every 72 hours. 13. Triamcinolone 0.1% cream as prescribed daily. 14. Glipizide 5 mg b.i.d. 15. Gabapentin 600 mg b.i.d. 16. Alendronate 70 mg weekly. 17. Spironolactone 100 mg t.i.d. 18. Pantoprazole 20 mg daily. 19. Paroxetine 20 mg daily. 20. Calcium carbonate 600 mg b.i.d. 21. Ocuvite 1 daily. 22. Zinc 50 mg daily. 23. Glargine insulin 20 mg daily at 9 p.m. 24. Furosemide 80 mg t.i.d. [id number]/[facility] #: [id number] MTDD
== END 2017-09-06 11:50 | disposition home or self-care (01) | DRG 720 ==
LOC: ED 10:31 → MED 13:05
PROVIDERS: ADMIT Internal Medicine; ATTEND Internal Medicine
DX: A41.9 Sepsis, unspecified organism (principal); L03.116 Cellulitis of left lower limb; E87.2 Acidosis; Z68.41 Body mass index [BMI] 40.0-44.9, adult; L97.929 Non-pressure chronic ulcer of unspecified part of left lower leg with unspecified severity; L97.919 Non-pressure chronic ulcer of unspecified part of right lower leg with unspecified severity; T39.395A Adverse effect of other nonsteroidal anti-inflammatory drugs [NSAID], initial encounter; E11.69 Type 2 diabetes mellitus with other specified complication; E11.622 Type 2 diabetes mellitus with other skin ulcer; Z88.1 Allergy status to other antibiotic agents; Z88.5 Allergy status to narcotic agent; Z88.2 Allergy status to sulfonamides; Z88.8 Allergy status to other drugs, medicaments and biological substances; Z88.6 Allergy status to analgesic agent; Z88.3 Allergy status to other anti-infective agents; I10 Essential (primary) hypertension; K21.9 Gastro-esophageal reflux disease without esophagitis; K70.30 Alcoholic cirrhosis of liver without ascites; F10.20 Alcohol dependence, uncomplicated; M19.90 Unspecified osteoarthritis, unspecified site; Z98.1 Arthrodesis status; F32.9 Major depressive disorder, single episode, unspecified; F41.9 Anxiety disorder, unspecified; Z86.73 Personal history of transient ischemic attack (TIA), and cerebral infarction without residual deficits; Z98.42 Cataract extraction status, left eye; Z98.41 Cataract extraction status, right eye; Z98.51 Tubal ligation status; Z83.3 Family history of diabetes mellitus; Z87.891 Personal history of nicotine dependence; G25.81 Restless legs syndrome; D69.6 Thrombocytopenia, unspecified; M81.0 Age-related osteoporosis without current pathological fracture; G89.29 Other chronic pain; Z66 Do not resuscitate; J44.9 Chronic obstructive pulmonary disease, unspecified; R60.9 Edema, unspecified; E66.01 Morbid (severe) obesity due to excess calories; Z79.84 Long term (current) use of oral hypoglycemic drugs; L29.9 Pruritus, unspecified; Z88.0 Allergy status to penicillin; T36.8X5A Adverse effect of other systemic antibiotics, initial encounter; R09.02 Hypoxemia
CPT/HCPCS: 36415; 71046; 76705; 80048; 80053; 81003; 82565; 83605; 84484; 84520; 85025; 85610; 85730; 86140; 87040; 93005; 99284; A9270-GY; J0696; J1644; J3370

== ENCOUNTER 2018-04-18 11:22 | Observation (INO) | payer MEDICARE ==
[2018-04-18 12:30] LABS: ABS Basophils 0.1 10^3/ul (0-0.2); ABS Eosinophils 0.1 10^3/ul (0-0.6); ABS Lymphocytes 0.8 10^3/ul (1.0-4.8); ABS Monocytes 0.6 10^3/ul (0-0.8); ABS Neutrophils 5.8 10^3/ul (1.5-7.7); ABS Nucleated RBC 0 10^3/ul; Eosinophil % 1.9 %; Hematocrit 38 % (35-47); Hemoglobin 12.5 g/dl (12.0-16.0); Lymphocyte % 10.5 %; Mean Corpuscular HGB Conc 33 g/dl (31-36); Mean Corpuscular Hemoglobin 31 pg (27-31); Mean Corpuscular Volume 95 fL (80-97); Mean Platelet Volume 7.8 fL (7.4-10.4); Nucleated Red Blood Cells % 0; Platelet Count 129 10^3/ul (150-450); Red Blood Count 3.99 10^6/ul (4.00-5.40); Red Cell Distribution Width 18 % (10.5-15); White Blood Count 7.3 10^3/ul (3.5-10.8)
[2018-04-18 12:31] LABS: INR 1.31 (0.77-1.02)
[2018-04-18 12:42] LABS: ALT 32 U/L (7-52); AST 34 U/L (13-39); Albumin 3.4 g/dL (3.2-5.2); Albumin/Globulin Ratio 0.7 (1-3); Alkaline Phosphatase 202 U/L (34-104); Anion Gap 7 mmol/L (2-11); BUN/Creatinine Ratio 32.5 (8-20); Blood Urea Nitrogen 25 mg/dL (6-24); C Reactive Protein 71.83 mg/L (<8.01); CO2 Carbon Dioxide 22 mmol/L (22-32); Calcium 9.3 mg/dL (8.6-10.3); Chloride 102 mmol/L (101-111); EGFR Non-African American 75.2 (>60); Globulin 4.7 g/dL (2-4); Glucose 253 mg/dL (70-100); Magnesium 2.2 mg/dL (1.9-2.7); Sodium 131 mmol/L (135-145); Total Protein 8.1 g/dL (6.4-8.9)
[2018-04-18 12:57] LABS: Alcohol < 10 mg/dL (<10)
[2018-04-18 13:11] LABS: TSH (Thyroid Stimulating Horm) 1.84 mcIU/mL (0.34-5.60)
--- NOTE | 2018-04-18 13:26 | ED ---
HPI Chest Pain - HPI Summary HPI Summary: This patient is a 67 year old female presenting to [facility] accompanied by daughter with a chief complaint of left rib pain since 4 days ago. Patient was in the bathroom when the fall occurred. She was getting up from the bathroom, when she felt to her left side. Her left arm hit her left chest and since, she states she had SOB. Patient denies head trauma and LOC. Patient additionally reports weakness. The pain is rated 0/10 in severity. Symptoms aggravated by nothing. Symptoms alleviated by nothing. - History of Current Complaint Chief Complaint: EDChestPainROMI Time Seen by Provider: 04/18/18 13:13 Hx Obtained From: Patient Onset/Duration: Started Days Ago, Still Present Timing: Constant Initial Severity: Moderate Pain Intensity: 8 Pain Scale Used: 0-10 Numeric Chest Pain Location: Left Lateral Aggravating Factor(s): Nothing Alleviating Factor(s): Nothing Associated Signs and Symptoms: Positive: Other: - SOB, weakness - Additional Pertinent History Primary Care Physician: [id number] - Allergy/Home Medications Allergies/Adverse Reactions: Allergies Allergy/AdvReac Type Severity Reaction Status Date / Time morphine Allergy Severe Anaphylatic Verified 04/18/18 11:36 Shock vancomycin Allergy Intermediate Rash And Verified 04/18/18 11:36 Itching meloxicam Allergy Rash Verified 04/18/18 11:36 Penicillins Allergy Swelling Verified 04/18/18 11:36 sulfamethoxazole Allergy Unknown Verified 04/18/18 11:36 [From Bactrim] Reaction Details trimethoprim [From Bactrim] Allergy Unknown Verified 04/18/18 11:36 Reaction Details aspirin AdvReac CIRRHOSIS Verified 04/18/18 11:36 erythromycin base AdvReac Vomiting Verified 04/18/18 11:36 NSAIDS (Non-Steroidal AdvReac CIRRHOSIS Verified 04/18/18 11:36 Anti-Inflamma Sulfa (Sulfonamide AdvReac GI Upset Verified 04/18/18 11:36 Antibiotics) PMH/Surg Hx/FS Hx/Imm Hx Previously Healthy: No Endocrine/Hematology History: Reports: Hx Diabetes Cardiovascular History: Denies: Hx Hypertension, Hx Pacemaker/ICD, Other Cardiovascular Problems/ Disorders Respiratory History: Denies: Hx Chronic Obstructive Pulmonary Disease (COPD) GI History: Reports: 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, Hx Gastroesophageal Reflux Disease, Other GI Disorders - Esophageal varices History: Denies: Hx Renal Disease Musculoskeletal History: Reports: Hx Arthritis, Hx Back Problems - lumbar fusion in 1990, Other Musculoskeletal History - Restless leg syndrome Denies: Hx Osteoporosis Sensory History: Reports: Hx Cataracts - bilat, Hx Contacts or Glasses Denies: Hx Hearing Aid Opthamlomology History: Reports: Hx Cataracts - bilat, Hx Contacts or Glasses Neurological History: Reports: Hx Transient Ischemic Attacks (TIA) Psychiatric History: Reports: Hx Anxiety, Hx Depression Denies: Hx Panic Disorder - Cancer History Hx Chemotherapy: No Hx Radiation Therapy: No - Surgical History Surgery Procedure, Year, and Place: LUMBAR SPINAL FUSION 1990, tonsillectomy. TUBAL LIGATION. WISDOM TEETH. DOLORES CATARACTS Hx Anesthesia Reactions: No Infectious Disease History: No Infectious Disease History: Denies: Hx of Known/Suspected MRSA, Traveled Outside the [place] in Last 30 Days - Family History Known Family History: Positive: Diabetes - Mother - Social History Lives: With Family Alcohol Use: None Alcohol Amount: Hx ETOH abuse, none currently Hx Substance Use: No Substance Use Type: Reports: None Hx Tobacco Use: Yes - not currently Smoking Status (MU): Former Smoker Type: Cigarettes Amount Used/How Often: 5 CIGS/DAY Length of Time of Smoking/Using Tobacco: 30 years Have You Smoked in the Last Year: Yes Review of Systems Negative: Fever Positive: Shortness Of Breath Positive: Other - left rib pain Positive: Weakness All Other Systems Reviewed And Are Negative: Yes Physical Exam - Summary Physical Exam Summary: Appearance: Well appearing, no pain distress Skin: warm, dry, reflects adequate perfusion Head/face: normal Eyes: EOMI, JOSH ENT: mucous membranes moist Neck: supple, non-tender Respiratory: CTA, breath sounds present Cardiovascular: RRR, pulses symmetrical Abdomen: distended abd with ascites. Bowel Sounds: present Extremities: Chronic dermatitis over legs and chronic edema of both legs Musculoskeletal: normal, strength/ROM intact, Tender in the last lateral lower ribs in the axillary line. Neuro: normal, sensory motor intact, decreased sensation in feet, A&Ox3 Triage Information Reviewed: Yes Vital Signs On Initial Exam: Initial Vitals Temp Pulse Resp BP Pulse Ox 98.6 F 100 16 109/61 91 04/18/18 11:31 04/18/18 11:31 04/18/18 11:31 04/18/18 11:31 04/18/18 11:31 Vital Signs Reviewed: Yes Diagnostics - Vital Signs Vital Signs Temp Pulse Resp BP Pulse Ox 04/18/18 11:31 98.6 F 100 16 109/61 91 - Laboratory Lab Results: Lab Results 04/18/18 04/18/18 04/18/18 Range/Units 12:11 12:11 12:11 WBC 7.3 (3.5-10.8) 10^3/ul RBC 3.99 L (4.00-5.40) 10^6/ul Hgb 12.5 (12.0-16.0) g/dl Hct 38 (35-47) % MCV 95 (80-97) fL MCH 31 (27-31) pg MCHC 33 (31-36) g/dl RDW 18 H (10.5-15) % Plt Count 129 L (150-450) 10^3/ul MPV 7.8 (7.4-10.4) fL Neut % (Auto) 78.6 % Lymph % (Auto) 10.5 % [place] % (Auto) 8.1 % Eos % (Auto) 1.9 % Baso % (Auto) 0.9 % Absolute Neuts (auto) 5.8 (1.5-7.7) 10^3/ul Absolute Lymphs (auto) 0.8 L (1.0-4.8) 10^3/ul Absolute Monos (auto) 0.6 (0-0.8) 10^3/ul Absolute Eos (auto) 0.1 (0-0.6) 10^3/ul Absolute Basos (auto) 0.1 (0-0.2) 10^3/ul Absolute Nucleated RBC 0 10^3/ul Nucleated RBC % 0 INR (Anticoag Therapy) 1.31 H (0.77-1.02) Sodium 131 L (135-145) mmol/L Potassium 4.0 (3.5-5.0) mmol/L Chloride 102 (101-111) mmol/L Carbon Dioxide 22 (22-32) mmol/L Anion Gap 7 (2-11) mmol/L BUN 25 H (6-24) mg/dL Creatinine 0.77 (0.51-0.95) mg/dL Est GFR ( Amer) 91.0 (>60) Est GFR (Non-Af Amer) 75.2 (>60) BUN/Creatinine Ratio 32.5 H (8-20) Glucose 253 H (70-100) mg/dL Lactic Acid (0.5-2.0) mmol/L Calcium 9.3 (8.6-10.3) mg/dL Magnesium 2.2 (1.9-2.7) mg/dL Total Bilirubin 0.80 (0.2-1.0) mg/dL AST 34 (13-39) U/L ALT 32 (7-52) U/L Alkaline Phosphatase 202 H (34-104) U/L Troponin I 0.00 (<0.04) ng/mL C-Reactive Protein 71.83 H (<8.01) mg/L B-Natriuretic Peptide (<=100) pg/mL Total Protein 8.1 (6.4-8.9) g/dL Albumin 3.4 (3.2-5.2) g/dL Globulin 4.7 H (2-4) g/dL Albumin/Globulin Ratio 0.7 L (1-3) TSH 1.84 (0.34-5.60) mcIU/mL Serum Alcohol < 10 (<10) mg/dL 04/18/18 04/18/18 Range/Units 12:11 12:11 WBC (3.5-10.8) 10^3/ul RBC (4.00-5.40) 10^6/ul Hgb (12.0-16.0) g/dl Hct (35-47) % MCV (80-97) fL MCH (27-31) pg MCHC (31-36) g/dl RDW (10.5-15) % Plt Count (150-450) 10^3/ul MPV (7.4-10.4) fL Neut % (Auto) % Lymph % (Auto) % [place] % (Auto) % Eos % (Auto) % Baso % (Auto) % Absolute Neuts (auto) (1.5-7.7) 10^3/ul Absolute Lymphs (auto) (1.0-4.8) 10^3/ul Absolute Monos (auto) (0-0.8) 10^3/ul Absolute Eos (auto) (0-0.6) 10^3/ul Absolute Basos (auto) (0-0.2) 10^3/ul Absolute Nucleated RBC 10^3/ul Nucleated RBC % INR (Anticoag Therapy) (0.77-1.02) Sodium (135-145) mmol/L Potassium (3.5-5.0) mmol/L Chloride (101-111) mmol/L Carbon Dioxide (22-32) mmol/L Anion Gap (2-11) mmol/L BUN (6-24) mg/dL Creatinine (0.51-0.95) mg/dL Est GFR ( Amer) (>60) Est GFR (Non-Af Amer) (>60) BUN/Creatinine Ratio (8-20) Glucose (70-100) mg/dL Lactic Acid 1.6 (0.5-2.0) mmol/L Calcium (8.6-10.3) mg/dL Magnesium (1.9-2.7) mg/dL Total Bilirubin (0.2-1.0) mg/dL AST (13-39) U/L ALT (7-52) U/L Alkaline Phosphatase (34-104) U/L Troponin I (<0.04) ng/mL C-Reactive Protein (<8.01) mg/L B-Natriuretic Peptide 25 (<=100) pg/mL Total Protein (6.4-8.9) g/dL Albumin (3.2-5.2) g/dL Globulin (2-4) g/dL Albumin/Globulin Ratio (1-3) TSH (0.34-5.60) mcIU/mL Serum Alcohol (<10) mg/dL Result Diagrams: 04/18/18 12:11 04/18/18 12:11 Lab Statement: Any lab studies that have been ordered have been reviewed, and results considered in the medical decision making process. - Radiology Ribs XR Radiology Interpretation Completed By: Radiologist Summary of Radiographic Findings: Ribs XR reveals, per radiologist, IMPRESSION: Fractures of the left third fourth and fifth ribs and likely seventh rib as well posterior laterally. ED physician has reviewed this radiology report. - EKG 1218 Cardiac Rate: NL EKG Rhythm: Sinus Rhythm - 89 BPM Summary of EKG Findings: An EKG, taken 1218, reveals NSR (89 BPM), Normal axis. Normal interval. Normal ST. Chest Pain Course/Dx - Course Course Of Treatment: Nurse's notes reviewed. Patient with increasing difficulty with breathing due to pain from fall in her left chest. She has history of liver disease. Patient is alert and oriented but is having difficulty with falls of late. She has had multiple workups for relative to this. X-ray shows multiple rib fractures. This is treated with topical lidocaine patch with improvement. She required oxygen for hypoxia. She will require admission for same. Admit for further. - Chest Pain Differential Diagnosis/HQI/PQRI: ACS, Chest Wall, Lower Respiratory Infection, Other: - Diagnoses Provider Diagnoses: Multiple rib fractures, Hypoxia, Cirrhosis - Provider Notifications Discussed Care Of Patient With: Korey Moreno - Hospitalist Time Discussed With Above Provider: 14:31 - We discussed patient care with Dr. Moreno (Hospitalist) at 1431 and they agreed to admit the patient. Instructed by Provider To: Admit As Inpatient Discharge - Sign-Out/Discharge Documenting (check all that apply): Patient Departure - Discharge Plan Condition: Fair Disposition: ADMITTED TO [facility] - Billing Disposition and Condition Condition: FAIR Disposition: Admitted to [facility] - Attestation Statements Document Initiated by Christ: Yes Documenting Scribe: Vandana Pearson Provider For Whom Christ is Documenting (Include Credential): Bhargav Olvera MD Scribe Attestation: Vandana Sanotro scribed for Bhargav Olvera MD on 04/18/18 at 1955. Scribe Documentation Reviewed: Yes Provider Attestation: The documentation as recorded by the Vandana senior accurately reflects the service I personally performed and the decisions made by ct, Bhargav Olvera MD Status of Scribe Document: Viewed
[2018-04-18] MEDS: Lidocaine PATCH 5%* 1 PATCH TRANSDERM SCH (13:46)
[2018-04-18] MEDS ORDERED: Spironolactone TAB* 25 MG PO SCH (15:15)
[2018-04-18] MEDS ORDERED: Dextrose 50% Syringe 50 ML* 25 GM/50 ML SYRINGE IV PUSH PRN (15:17)
[2018-04-18 15:38] LABS: Urine Appearance Cloudy; Urine Bilirubin Negative (Negative); Urine Blood Negative (Negative); Urine Color Yellow; Urine Glucose Negative (Negative); Urine Ketones Negative (Negative); Urine Nitrite Negative (Negative); Urine Protein Negative (Negative); Urine Urobilinogen Negative (Negative)
[2018-04-18] MEDS ORDERED: Furosemide TAB* 20 MG PO SCH (16:00)
[2018-04-18] MEDS ORDERED: fentaNYL PATCH 12 MCG/HR TRANSDERM SCH (18:00)
[2018-04-18] MEDS: Insulin LISPRO* 1 UNITS UNIT SUBCUT SCH ×2 (18:16→21:43)
[2018-04-18] MEDS: ACARBOSE 25 MG PO SCH ×2 (18:24→21:35)
[2018-04-18] MEDS: glipiZIDE TAB* 5 MG PO SCH (18:25)
[2018-04-18] MEDS: Potassium Chlor TAB* 20 MEQ TAB.ER PO SCH ×2 (18:25→21:37)
--- NOTE | 2018-04-18 18:25 | HP ---
HISTORY AND PHYSICAL: DATE OF ADMISSION: 04/18/18 ADMITTING PROVIDER: Korey Moreno MD PRIMARY CARE PROVIDER: Estrada Richmond MD OUTPATIENT CUSTOMER SUCCESS MANAGER: Dr. Justin Suarez. OUTPATIENT ALLERGY AND IMMUNOLOGY SPECIALIST: Dr. Camarillo. OUTPATIENT CHILD CARE COORDINATOR: Dr. Nick Keita. CHIEF COMPLAINT: Multiple falls with increasing frequency; rib fractures; shortness of breath x1 month. HISTORY OF PRESENT ILLNESS: June Syed is a 67-year-old female with past medical history of alcoholic cirrhosis; insulin-dependent diabetes mellitus; hypertension; GERD; esophageal varices; TIA; anxiety; depression; restless legs syndrome; chronic low back pain, on chronic opioid medications. Ever since June of last year, when she fell and got a concussion, she has been falling more frequently, about once a week; however, over the last week this frequency has increased. She fell 4 days ago and hit her left ribcage. Day prior to admission, she fell approximately 9 times and presented to the emergency room for further evaluation. Of note, she is on high doses of diuretics for control of her ascites, and 3 weeks ago, Dr. Camarillo decreased her from her baseline of 120 mg Lasix 3 times a day plus 100 mg spironolactone 3 times a day to 100 mg spironolactone daily and 20 mg Lasix 3 times a day. She attests her "legs blew up" and the medication changes were reversed 2 weeks ago. This change was made in the setting of feelings of dizziness and lightheadedness. [place] presentation [place] [facility], she had a rib x-ray, which showed fractures of the left 3rd, 4th, 5th and 7th ribs. She was found to be nearly hypoxic with acute respiratory failure, satting 87% on room air and was referred to the hospitalist service for admission. She denies any chest pain, palpitations, fevers, chills, nausea, vomiting. She denies any increase in her abdominal girth and her leg swelling is back to baseline. Her blood sugar is reportedly fairly well controlled in the low 100s fasting and she has been recently started on Trulicity by Dr. Keita. She takes 4 tablespoons of lactulose each night and has 2 to 3 soft bowel movements a day. She denies any increasing confusion. She does attest to going to physical therapy prior to the first fall in June 2017, but none since. She denies any blood per rectum, melena. She has never had a colonoscopy. PAST MEDICAL HISTORY: Insulin-dependent diabetes mellitus (last A1c approximately 8.5 this month); alcoholic cirrhotic, sober for the last 5 years, with ascites and esophageal varices, status post recent banding late January 2018; restless legs syndrome; TIA; anxiety; depression; hypertension; arthritis ; chronic low back pain, on chronic opioids. MEDICATIONS: Include: 1. Acarbose 50 mg p.o. t.i.d. 2. Trulicity 1 syringe injected weekly. 3. Lactulose 30 mL p.o. at bedtime. 4. Basaglar insulin 30 units q.h.s. 5. Gabapentin 600 mg p.o. four times daily (although in the system it is t.i.d. ) 6. Lasix 120 mg p.o. t.i.d. 7. Ferrous sulfate 325 mg p.o. daily. 8. Cholecalciferol 2000 units p.o. daily. 9. Calcium carbonate 600 mg p.o. b.i.d. 10. Ocuvite Adult 50+ softgel 1 each p.o. daily. 11. Fosamax 70 mg p.o. weekly. 12. Potassium chloride 20 mEq p.o. t.i.d. 13. Pantoprazole 20 mg p.o. daily. 14. Paroxetine 30 mg p.o. daily. 15. Oxycodone 10 mg p.o. t.i.d. p.r.n. 16. Mirtazapine 30 mg p.o. at bedtime. 17. Slow-Mag EC tab 71.5 to 119 mg p.o. daily. 18. Glipizide 5 mg p.o. daily. 19. Fentanyl 12 mcg transdermal patch q.72 hours p.r.n. 20. Zinc 50 mg p.o. b.i.d. 21. Vitamin E capsule 200 mg p.o. daily. 22. Spironolactone 100 mg p.o. t.i.d. 23. Mirapex 0.25 mg p.o. at bedtime. ALLERGIES: MORPHINE, VANCOMYCIN, MELOXICAM, PENICILLIN, BACTRIM, ASPIRIN, ERYTHROMYCIN BASE, NSAIDS, SULFA. FAMILY HISTORY: Mother has diabetes. Father of old age. SOCIAL HISTORY: The patient is a former smoker of [id number]. Former alcoholic, sober for 5 years. Her medical surrogate is her daughter, Keri Monaco. She lives with her daughter. She desires to be DNR/DNI, says she has filled out the paperwork on prior admissions. PHYSICAL EXAMINATION GENERAL APPEARANCE: No acute distress, initially seemingly asleep. VITAL SIGNS: Temperature 98.6; pulse rate between 89 and 100; respiratory rate 16; satting 87% on room air, 95% on 2 L; blood pressure between 93/72 to 109/61. HEENT: Normocephalic, atraumatic. Pupils are equal, round, and reactive to light. Extraocular motions intact. No scleral icterus. NECK: Supple. No cervical lymphadenopathy. LUNGS: Clear to auscultation bilaterally with no wheezing, rales, or rhonchi. CARDIOVASCULAR: Regular rate and rhythm. No murmurs, rubs, or gallops. ABDOMEN: Very distended, soft. No rebound or guarding. Positive fluid wave. EXTREMITIES: Warm, well perfused. No significant peripheral edema. NEURO: Cranial nerves II through XII intact. General Adjuster strength intact. No significant asterixis. SKIN: No lesions. No rashes. DIAGNOSTIC STUDIES/LAB DATA: White count 7.3, hemoglobin 12.5, hematocrit 38, platelets 129. INR 1.31. Sodium 131, potassium 4.0, chloride 102, carbon dioxide 22, anion gap 7, BUN 25, creatinine 0.77, glucose 253, lactic acid 1.6, calcium 9.3, magnesium 2.2. Total bili 0.80, AST 34, ALT 32, alk phos 202. Troponin 0.01. CRP 71.8. BNP 25. Albumin 3.5. TSH 1.84. Serum alcohol less than 10. Imaging: Rib x-ray demonstrates fractures of the 3rd, 4th and 5th ribs and likely 7th rib as well posterolaterally. Her EKG showed normal sinus rhythm. No ST elevations or depressions. No T- wave inversions. Normal axis, QTc 467. ASSESSMENT AND PLAN: June Syed is a 67-year-old female, alcoholic, cirrhotic, with 8 to 9 falls over the last day and a significant fall 4 days prior, which resulted in 3 to 4 rib fractures and now presenting with also acute hypoxic respiratory failure. The etiology of her falls is not quite clear. Her blood pressure is a little bit on the low side and she is on high dose of diuretics to help stabilize her alcoholic cirrhosis. I am going to order orthostatic vital signs and get Physical Therapy to see her. I am adding on an ammonia level as well. She seemed a little sleepy, but no asterixis and not very confused. Continue the lactulose. As I said, I would add ammonia level. Physical therapy is ordered. Continue her other home regimen including her diabetic medications including substitution for Lantus 30 units q.h.s., hold the Trulicity, continue the glipizide 5 mg p.o. b.i.d., put her on sliding scale insulin and q.a.c. h.s. fingerstick checks. Continue her potassium supplementation and her pramipexole for restless legs syndrome. Suspect she may need rehabilitation placement for further physical therapy. She is DNR/ DNI. Her medical surrogate is her daughter, Keri Monaco. She can eat a low- sodium, heart-healthy diet. [id number]/[facility] #: [id number] [facility]
[2018-04-18] MEDS: fentaNYL Patch Check Q Shift 1 NOTE FOLLOW UP SCH (18:31)
[2018-04-18] MEDS: oxyCODONE TAB* 5 MG TAB PO PRN (18:32)
[2018-04-18] MEDS ORDERED: Insulin GLARGINE(*) 1 UNITS UNIT SUBCUT SCH (20:00)
[2018-04-18] MEDS ORDERED: Lidocaine Patch REMOVE* 1 NOTE MISC SCH (21:00)
[2018-04-18] MEDS ORDERED: Pramipexole TAB* 0.125 MG PO SCH (21:00)
[2018-04-18] MEDS ORDERED: Mirtazapine TAB* 15 MG PO SCH (21:00)
[2018-04-18] MEDS: Calcium Carbonate TAB* 1250 MG (CALCIUM 500 MG) PO SCH (21:34)
[2018-04-18] MEDS: HYDROmorphone INJ1* 1 MG/ML SYRINGE IV SLOW PU PRN (23:16)
[2018-04-19] MEDS: oxyCODONE TAB* 5 MG TAB PO PRN ×2 (02:29→14:35)
[2018-04-19 05:48] LABS: ABS Basophils 0.1 10^3/ul (0-0.2); ABS Eosinophils 0.2 10^3/ul (0-0.6); ABS Lymphocytes 0.8 10^3/ul (1.0-4.8); ABS Monocytes 0.6 10^3/ul (0-0.8); ABS Neutrophils 4.7 10^3/ul (1.5-7.7); ABS Nucleated RBC 0 10^3/ul; Eosinophil % 2.6 %; Hematocrit 39 % (35-47); Hemoglobin 12.8 g/dl (12.0-16.0); Lymphocyte % 12.6 %; Mean Corpuscular HGB Conc 33 g/dl (31-36); Mean Corpuscular Hemoglobin 32 pg (27-31); Mean Corpuscular Volume 96 fL (80-97); Mean Platelet Volume 7.5 fL (7.4-10.4); Nucleated Red Blood Cells % 0; Platelet Count 124 10^3/ul (150-450); Red Blood Count 4.02 10^6/ul (4.00-5.40); Red Cell Distribution Width 18 % (10.5-15); White Blood Count 6.3 10^3/ul (3.5-10.8)
[2018-04-19 06:05] LABS: BUN/Creatinine Ratio 29.5 (8-20); Calcium 9.2 mg/dL (8.6-10.3); EGFR Non-African American 74.1 (>60); Potassium 4.7 mmol/L (3.5-5.0)
[2018-04-19] MEDS: HYDROmorphone INJ1* 1 MG/ML SYRINGE IV SLOW PU PRN (06:28)
[2018-04-19] MEDS: fentaNYL Patch Check Q Shift 1 NOTE FOLLOW UP SCH (07:24)
[2018-04-19] MEDS: Insulin LISPRO* 1 UNITS UNIT SUBCUT SCH ×3 (08:13→17:16)
[2018-04-19] MEDS ORDERED: Cholecalciferol TAB* 1000 UNITS PO SCH (09:00)
[2018-04-19] MEDS ORDERED: PARoxetine HCL TAB* 10 MG PO SCH (09:00)
[2018-04-19] MEDS ORDERED: PANTOPRAZOLE 20 MG PO SCH (09:00)
[2018-04-19] MEDS ORDERED: Spironolactone TAB* 25 MG PO SCH (09:00)
[2018-04-19] MEDS ORDERED: Enoxaparin(*) 40 MG/0.4 ML SYR SUBCUT SCH (09:00)
[2018-04-19] MEDS ORDERED: Furosemide TAB* 40 MG PO SCH (09:00)
[2018-04-19] MEDS ORDERED: Ferrous Sulfate TAB* 325 MG PO SCH (09:00)
[2018-04-19] MEDS: ACARBOSE 25 MG PO SCH ×2 (10:03→12:47)
[2018-04-19] MEDS: Lidocaine PATCH 5%* 1 PATCH TRANSDERM SCH (10:04)
[2018-04-19] MEDS: Calcium Carbonate TAB* 1250 MG (CALCIUM 500 MG) PO SCH (10:05)
[2018-04-19] MEDS: Potassium Chlor TAB* 20 MEQ TAB.ER PO SCH ×2 (10:06→12:47)
[2018-04-19] MEDS: glipiZIDE TAB* 5 MG PO SCH ×2 (10:06→17:31)
[2018-04-19 16:34] VITALS: BP 113/58
--- NOTE | 2018-04-20 00:22 | DS ---
DISCHARGE SUMMARY: DATE OF ADMISSION: 04/18/18 DATE OF DISCHARGE: 04/19/18 ADMITTING PROVIDER: Dr. Korey Moreno. PRIMARY CARE PROVIDER: Dr. Estrada Richmond. OUTPATIENT RUG SIZER: Dr. Justin Suarez. OUTPATIENT PHOSPHORUS PROCESSING SUPERVISOR: Dr. Camarillo. OUTPATIENT INVENTORY SPECIALIST: Dr Nick Keita. CHIEF COMPLAINT: Multiple falls, rib pain, shortness of breath x1 month. PRINCIPAL DIAGNOSES: 1. Falls in the setting of likely hepatic encephalopathy, worsening ammonia level in the setting of missing 1 night's dose of lactulose. 2. Left rib fractures. 3. Chronic alcoholic cirrhosis with ascites. HISTORY OF PRESENT ILLNESS/HOSPITAL COURSE: June Syed is a 67-year-old female with past medical history of alcoholic cirrhosis, insulin-dependent diabetes mellitus, hypertension, GERD, esophageal varices, TIA, anxiety, depression, restless legs syndrome, chronic low back pain, on chronic opioid medications. Please see H and P of Dr. Korey Moreno for full details, but much less she has had fall and concussion and falling about once a week. Four days prior to admission, she fell, hit her left ribcage and then day prior to admission she states she fell 8 or 9 times. She later attests that on Callie, 2 nights prior to admission, she skipped her lactulose dosing because she was feeling tired. She had also had some adjustments to her diuretic dosing 2 weeks prior to admission with Lasix reduction by Dr. Camarillo and then her legs "blew up" and the medications were reversed back to previous dosing. She had a rib x-ray that showed third, fourth, fifth and seventh rib fractures on the left side. She was found to be hypoxic to 87% on room air. She denied chest pains. She was referred to hospitalist service for admission and ammonia level would be added on and it was found to be 114. She initially refused her diuretics because she only takes them in the morning. Hospital day # 2, her ammonia level was again 115 and she was given ordered t.i.d. dosing of lactulose. She refused the afternoon dose, felt markedly improved. Working with physical therapy, recommended outpatient physical therapy evaluation of her home. Her pain was controlled and she was given 10 additional tabs of her oxy 10 mg so that she could take it 4 times a day instead of 3 times a day until she can follow up with Dr. Ng. She was also given a Lidoderm patch the first day in the ED. DISCHARGE MEDICATIONS: Include: 1. Acarbose 50 mg p.o. t.i.d. 2. Fosamax 70 mg p.o. weekly. 3. Ocuvite Adult 50+ Softgel 1 each p.o. daily. 4. Calcium carbonate 600 mg p.o. b.i.d. 5. Cholecalciferol 2000 units p.o. daily. 6. Trulicity 1 syringe injection weekly. 7. Fentanyl patch 12 mcg transdermal q.72 hours p.r.n. 8. Ferrous sulfate 325 mg p.o. daily. 9. Furosemide 120 mg p.o. q.a.m. 10. Gabapentin 600 mg p.o. q.i.d. 11. Glipizide 5 mg p.o. b.i.d. 12. Basaglar 30 units daily q.p.m. 13. Lactulose 30 mg p.o. at bedtime, but titrated for at least 3 to 4 soft bowel movements a day. 14. Slow-Mag EC tab 71.5 to 119 mg p.o. daily. 15. Remeron 30 mg p.o. at bedtime 16. Oxycodone 10 mg p.o. q.i.d. for 10 tabs when combined with her 10 mg p.o. t.i.d. 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 Protonix 20 mg p.o. daily. 18. Paxil 30 mg p.o. daily. 19. Potassium 20 mEq t.i.d. 20. Mirapex 0.25 mg p.o. b.i.d. 21. Spironolactone 300 mg p.o. q.a.m. 22. Vitamin E 200 mg p.o. daily. 23. Zinc 50 mg p.o. b.i.d. FOLLOWUP: The patient will follow up with Dr. Estrada Richmond within 7 day of discharge and Dr. Camarillo as otherwise scheduled along with Dr. Suarez and Dr. Ng. DIET: Low salt, heart healthy, carbohydrate consistent. TIME SPENT: 45 minutes. [id number]/[facility] #: [id number] [facility]
== END 2018-04-19 17:55 | disposition home or self-care (01) ==
LOC: ED 11:22 → MED 15:01
PROVIDERS: ADMIT Internal Medicine; ATTEND Internal Medicine
DX: S22.32XA Fracture of one rib, left side, initial encounter for closed fracture (principal); R07.81 Pleurodynia; S27.9XXA Injury of unspecified intrathoracic organ, initial encounter; W19.XXXA Unspecified fall, initial encounter; Y92.9 Unspecified place or not applicable; F10.20 Alcohol dependence, uncomplicated; K70.31 Alcoholic cirrhosis of liver with ascites; Z88.2 Allergy status to sulfonamides; Z88.0 Allergy status to penicillin; E11.9 Type 2 diabetes mellitus without complications; Z87.891 Personal history of nicotine dependence; R53.1 Weakness
CPT/HCPCS: 36415; 80048; 80053; 80320; 81003; 82140; 83605; 83735; 83880; 84443; 84484; 85025; 85610; 86140; 93005; 96372; 96374; 96375; 99284; A9270-GY; G0378; G0480; G8978-GP-CI; G8979-GP-CI; G8980-GP-CI; J1170; J1650

== ENCOUNTER 2018-07-20 06:24 | Inpatient (IN) | payer MEDICARE ==
[2018-07-20] MEDS ORDERED: HYDROmorphone INJ1* 1 MG/ML SYRINGE IM ONE (06:55)
--- NOTE | 2018-07-20 06:59 | ED ---
Lower Extremity - HPI Summary HPI Summary: Patient is a 67-year-old female who presents emergency department for left hip pain times one week. Patient denies any recent falls or injuries. Patient states her pain worsened today and she was unable to ambulate. She states his serum alcohol cirrhosis. Patient otherwise denies fever, chills, vomiting, diarrhea, abdominal pain, urinary symptoms. Symptoms are moderate in severity. Movement and walking makes sxs worse. Nothing makes pain better. Pt. chronically on fentanyl patch and oxycodone. Pt. notes chronic low back pain with hx of surgery but states she does not feel pain is stemming from back. - History of Current Complaint Chief Complaint: EDExtremityLower Stated Complaint: "LEG PAIN FROM HIP TO KNEE" PER PT'S DAUGHTER Time Seen by Provider: 07/20/18 06:42 Hx Obtained From: Patient, Family/Geological Engineer Pain Intensity: 10 - Allergies/Home Medications Allergies/Adverse Reactions: Allergies Allergy/AdvReac Type Severity Reaction Status Date / Time morphine Allergy Severe Anaphylatic Verified 07/20/18 08:40 Shock vancomycin Allergy Intermediate Rash And Verified 07/20/18 08:40 Itching meloxicam Allergy Rash Verified 07/20/18 08:40 Penicillins Allergy Swelling Verified 07/20/18 08:40 sulfamethoxazole Allergy Unknown Verified 07/20/18 08:40 [From Bactrim] Reaction Details trimethoprim [From Bactrim] Allergy Unknown Verified 07/20/18 08:40 Reaction Details aspirin AdvReac CIRRHOSIS Verified 07/20/18 08:40 erythromycin base AdvReac Vomiting Verified 07/20/18 08:40 NSAIDS (Non-Steroidal AdvReac CIRRHOSIS Verified 07/20/18 08:40 Anti-Inflamma Sulfa (Sulfonamide AdvReac GI Upset Verified 07/20/18 08:40 Antibiotics) Home Medications: Home Medications Ammonium Lactate 12% [Lac-Hydrin 12 %] 12 % EX SEE INSTRUCTIONS PRN 07/20/18 [ History Confirmed 07/20/18] Linagliptin (NF) [Tradjenta (NF)] 5 mg PO DAILY 07/20/18 [History Confirmed ] Triamcinolone 0.5% CREAM(NF) [Triamcinolone 0.5% CREAM*] 1 applic TOPICAL BID [History Confirmed 07/20/18] Urea [Ureacin-20] 20 % EX SEE INSTRUCTIONS PRN 07/20/18 [History Confirmed 07/20] PMH/Surg Hx/FS Hx/Imm Hx Previously Healthy: Yes Endocrine/Hematology History: Reports: Hx Diabetes Cardiovascular History: Reports: Hx Hypertension Denies: Hx Pacemaker/ICD, Other Cardiovascular Problems/Disorders Respiratory History: Denies: Hx Chronic Obstructive Pulmonary Disease (COPD) GI History: Reports: 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, Hx Gastroesophageal Reflux Disease, Other GI Disorders - Esophageal varices History: Denies: Hx Renal Disease Musculoskeletal History: Reports: Hx Arthritis, Hx Back Problems - lumbar fusion in 1990, Hx Orthopedic Injury - 04/18/18: Fx three ribs from a fall, Other Musculoskeletal History - Restless leg syndrome Denies: Hx Osteoporosis Sensory History: Reports: Hx Cataracts - bilat, Hx Contacts or Glasses Denies: Hx Hearing Aid Opthamlomology History: Reports: Hx Cataracts - bilat, Hx Contacts or Glasses Neurological History: Reports: Hx Transient Ischemic Attacks (TIA) Psychiatric History: Reports: Hx Anxiety, Hx Depression Denies: Hx Panic Disorder - Cancer History Hx Chemotherapy: No Hx Radiation Therapy: No - Surgical History Surgery Procedure, Year, and Place: LUMBAR SPINAL FUSION 1990, tonsillectomy. TUBAL LIGATION. WISDOM TEETH. [facility] CATARACTS Hx Anesthesia Reactions: No Infectious Disease History: No Infectious Disease History: Denies: Hx of Known/Suspected MRSA, Traveled Outside the [place] in Last 30 Days - Family History Known Family History: Positive: Diabetes - Mother, Non-Contributory - Social History Occupation: Retired Lives: With Family Alcohol Use: None Alcohol Amount: Hx ETOH abuse, none currently Hx Substance Use: No Substance Use Type: Reports: None Hx Tobacco Use: Yes - not currently Smoking Status (MU): Former Smoker Type: Cigarettes Amount Used/How Often: 5 CIGS/DAY Length of Time of Smoking/Using Tobacco: 30 years Have You Smoked in the Last Year: Yes Review of Systems Constitutional: Negative Negative: Fever, Chills Cardiovascular: Negative Negative: Chest Pain Respiratory: Negative Negative: Shortness Of Breath Gastrointestinal: Negative Negative: Abdominal Pain, Vomiting, Diarrhea Negative: dysuria, flank pain, hematuria, urgency Positive: Other - Left hip pain Skin: Negative Neurological: Negative All Other Systems Reviewed And Are Negative: Yes Physical Exam Triage Information Reviewed: Yes Vital Signs On Initial Exam: Initial Vitals Temp Pulse Resp BP Pulse Ox 99.0 F 96 21 102/59 88 07/20/18 06:40 07/20/18 06:40 07/20/18 06:40 07/20/18 06:40 07/20/18 06:40 Vital Signs Reviewed: Yes Appearance: Positive: Pain Distress - Pt. lying in bed, appears in pain but nontoxic. Chronically ill appearing. Daughter present. Skin: Positive: Warm, Dry Head/Face: Positive: Normal Head/Face Inspection Eyes: Positive: Normal, EOMI Neck: Positive: Supple Respiratory/Lung Sounds: Positive: Clear to Auscultation, Breath Sounds Present Cardiovascular: Positive: Normal, RRR Abdomen Description: Positive: Nontender, Soft Musculoskeletal: Positive: Other - Significant venous stasis changes to bilateral LEs. 5/5 strength in bilateral LEs. Significant pain with rotation of left hip. no midline lumbar tenderness Neurological: Positive: Normal, CN Intact II-III Psychiatric: Positive: Affect/Mood Appropriate Diagnostics - Vital Signs Vital Signs Temp Pulse Resp BP Pulse Ox 07/20/18 06:40 99.0 F 96 21 102/59 88 - Laboratory Result Diagrams: 07/20/18 11:36 07/20/18 11:36 Lab Statement: Any lab studies that have been ordered have been reviewed, and results considered in the medical decision making process. Lower Extremity Course/Dx - Course Course Of Treatment: Patient presenting for severe left hip pain and inability to ambulate. Patient is afebrile. Patient requesting pain medication stating that her chronic oxycodone and fentanyl patch are not working. Patient states she is due to change her fentanyl patch today and last oxycodone dose was 1 AM. Pt. allergic to NSAIDs. Patient given 1 mg of IM Dilaudid and blood pressure dropped to 90s. Patient denied dizziness, lightheadedness, chest pain and shortness breath. Patient states her blood pressure certainly low. X-rays negative for acute fracture dislocation, reading per radiology. Given patient' s pain and inability to ambulate CAT scan was ordered to evaluate for occult fracture. CT pelvis per radiology: IMPRESSION: #. No acute pelvic or proximal femur fracture evident. Old bilateral superior and inferior. pubic ramus fractures with incomplete osseous bridging at the LEFT inferior and RIGHT. superior and inferior fracture sites with probable fibrous union. Suggestion of healed. H-type sacral insufficiency fracture. #. The constellation of findings is concerning for potential metastatic cancer. Pelvic. ultrasound suggested for further assessment of bilateral cystic ovarian lesions. #. Partially visualized duodenum is remarkable for long segment mural thickening involving. the third segment concerning for either recurrent or persistent duodenitis or potentially. neoplastic thickening. Retroperitoneal perienteric inflammatory change surrounding the. visualized portion of the duodenum with caudal extension. No loculated retroperitoneal. fluid collection or extra enteric gas evident. Consider endoscopy for further assessment. #. Nodular contour of the liver concerning for cirrhosis or potentially metastatic. lesions. CT results discussed with pt. and daughter. She notes she follows with GI, Dr. Suarez, and he is trying to get an outpt. MRI abd. ordered. Pt. states she is in too much pain to ambulate. Hospitalist consulted for admission for uncontrollable pain and for further evaluation of potential Ca. I spoke with Dr. Delgado and pt. has been accepted to his service. BP improving. - Diagnoses Differential Diagnosis/HQI/PQRI: Positive: Contusion, Dislocation, Fracture ( Closed), Sprain, Strain Provider Diagnoses: Uncontrolled pain, Hip pain Discharge - Sign-Out/Discharge Documenting (check all that apply): Patient Departure Patient Received Moderate/Deep Sedation with Procedure: No - Discharge Plan Condition: Stable Disposition: ADMITTED TO [facility] - Billing Disposition and Condition Condition: STABLE Disposition: Admitted to [facility]
[2018-07-20 11:54] LABS: ABS Basophils 0.1 10^3/ul (0-0.2); ABS Eosinophils 0.1 10^3/ul (0-0.6); ABS Lymphocytes 0.7 10^3/ul (1.0-4.8); ABS Monocytes 0.7 10^3/ul (0-0.8); ABS Neutrophils 6.6 10^3/ul (1.5-7.7); ABS Nucleated RBC 0 10^3/ul; Eosinophil % 0.8 %; Hematocrit 39 % (33-41); Hemoglobin 13.1 g/dL (12.0-16.0); Lymphocyte % 8.4 %; Mean Corpuscular HGB Conc 33 g/dL (31-36); Mean Corpuscular Hemoglobin 31 pg (27-31); Mean Corpuscular Volume 94 fL (80-97); Mean Platelet Volume 7.8 fL (7.4-10.4); Nucleated Red Blood Cells % 0.1; Platelet Count 141 10^3/uL (150-450); Red Blood Count 4.17 10^6 /uL (3.70-4.87); Red Cell Distribution Width 17 % (10.5-15); White Blood Count 8.1 10^3/uL (3.5-10.8)
[2018-07-20 12:04] LABS: Albumin 3.3 g/dL (3.2-5.2); Albumin/Globulin Ratio 0.6 (1-3); BUN/Creatinine Ratio 29.3 (8-20); C Reactive Protein 113.9 mg/L (<8.01); Calcium 8.7 mg/dL (8.6-10.3); EGFR African American 93.8 (>60); EGFR Non-African American 77.6 (>60); Globulin 5.2 g/dL (2-4); Potassium 4.8 mmol/L (3.5-5.0); Total Bilirubin 1.5 mg/dL (0.2-1.0); Total Protein 8.5 g/dL (6.4-8.9)
[2018-07-20] MEDS ORDERED: Dextrose 50% Syringe 50 ML* 25 GM/50 ML SYRINGE IV PUSH PRN (13:45)
[2018-07-20] MEDS: oxyCODONE TAB* 5 MG TAB PO SCH ×3 (14:08→20:59)
[2018-07-20 14:15] LABS: Urine Appearance Cloudy; Urine Bilirubin Negative (Negative); Urine Blood Negative (Negative); Urine Color Yellow; Urine Glucose Negative (Negative); Urine Ketones Negative (Negative); Urine Nitrite Negative (Negative); Urine Protein Negative (Negative); Urine Specific Gravity 1.018 (1.010-1.030); Urine Urobilinogen Negative (Negative)
--- NOTE | 2018-07-20 16:23 | HP ---
CC: Dr. Estrada [place]; Dr. Suarez * HISTORY AND PHYSICAL: DATE OF ADMISSION: 07/20/18 PRIMARY CARE PROVIDER: Dr. Estrada [place]. CONSULTING PHYSICIANS: Dr. Suarez, Dr. Vincent. ATTENDING PHYSICIAN: Dr. Delgado * (dictated by Vanesa Boston NP). CHIEF COMPLAINT: Left hip pain. HISTORY OF PRESENT ILLNESS: Ms. Syed is a 67-year-old female with a past medical history significant for diabetes, alcoholic cirrhosis, anxiety, depression, and chronic pain who presented to the emergency room today on after experiencing significant left hip and leg pain starting at 0200 this morning. The patient reports that her hip started to hurt about 1 week ago. She reports the pain started in the groin. Pain then advanced to the outside of the left hip. Pain slowly increased in severity. Last night at 0200, the patient reports pain was a "15 out of 10". When discussing possible recent trauma, the patient does report that about 1.5 weeks ago, she had a mechanical fall when her walker got far ahead of her and left side of her body did hit her dresser. Daughter reports that last week, she also had a mechanical fall and fell to her knees. The patient reports that the pain is so severe that her normal regimen of oxycodone and fentanyl patches is not relieving the pain at all. The patient reports alleviating factors include sitting on the toilet. The patient reports aggravating factors include any movement. Pain starts in the left groin and radiates anteriorly down the left thigh to the left knee. She reports no posterior leg pain. The patient denies numbness and tingling. The patient denies weakness. The patient denies difficulty moving her bowels or bladder any incontinence. While in the emergency department, the patient was in severe pain requiring hydromorphone 1 mg, which caused hypotension with systolic of 79. While in the emergency department, the patient had a pelvis CT, which revealed no acute pelvic or proximal femur fracture, old bilateral superior and inferior pubic ramus fractures, bilateral cystic ovarian lesions, duodenum is remarkable for mural thickening involving the third segment and concerning for either recurrent or persistent duodenitis or potential neoplastic thickening, and nodular contour of the liver concerning for cirrhosis or potential metastatic disease. Given these findings, the hospitalists were asked to admit the patient for further evaluation and for pain management as she cannot ambulate and go home. PAST MEDICAL HISTORY: 1. Insulin-dependent diabetes. 2. Alcoholic cirrhosis. 3. Ascites and esophageal varices, status post recent banding in late January 2018. 4. Restless legs. 5. TIA. 6. Anxiety. 7. Depression. 8. Arthritis. 9. Chronic low back pain. 10. Chronic opioid use. 11. Four broken ribs in March 2018. PAST SURGICAL HISTORY: Spinal fusion in 1992. HOME MEDICATIONS: 1. Vitamin E 200 units p.o. daily. 2. Urea 20% to legs as needed. 3. Mirapex 2.5 mg p.o. at bedtime. 4. Calcium 600 mg p.o. b.i.d. 5. Triamcinolone 1 topical b.i.d. 6. Tradjenta 5 mg p.o. daily. 7. Ammonium lactate 12% apply to feet as needed. 8. Potassium 20 mEq p.o. t.i.d. 9. Fosamax 70 mg p.o. weekly. 10. Acarbose 50 mg p.o. t.i.d. 11. Vitamin D 2000 units p.o. every other day. 12. C, E, zinc, copper, omega-3 (Ocuvite Adult 50+ softgel) 1 p.o. daily. 13. Lactulose 30 mL p.o. at bedtime. 14. Insulin 30 units subcu daily. 15. Gabapentin 600 mg 4 times daily. 16. Lasix 120 mg p.o. q.a.m. 17. Ferrous sulfate 325 mg p.o. daily. 18. Protonix 20 mg p.o. daily. 19. Paxil 30 mg p.o. daily. 20. Oxycodone 10 mg p.o. 4 times daily, MDD 3. 21. Remeron 30 mg p.o. at bedtime. 22. Magnesium chloride/Slow-Mag 71.5/119 mg p.o. daily. 23. Fentanyl 12 mcg patch transdermal q.72 hours p.r.n. 24. Zinc 50 mg p.o. b.i.d. 25. Aldactone 300 mg p.o. q.a.m. 26. Glipizide 15 mg p.o. b.i.d. ALLERGIES: 1. MORPHINE. 2. VANCOMYCIN. 3. MELOXICAM. 4. PENICILLIN. 5. BACTRIM. 6. ASPIRIN. 7. ERYTHROMYCIN. 8. NSAIDS. 9. SULFA. FAMILY HISTORY: Mother has diabetes and is still alive. Father of old age. SOCIAL HISTORY: The patient is a former smoker of 30-pack year. The patient is a former alcoholic. Reports she has been sober for 5 years. The patient's medical surrogate decision maker is her daughter, Keri Monaco. She lives with her daughter. The patient desires to be a full code. REVIEW OF SYSTEMS: A 14-point review of systems was reviewed and all negative except as per HPI. PHYSICAL EXAMINATION GENERAL: Ms. Syed is a 67-year-old female who is well developed, slightly obese, sitting up in a chair, in no acute distress. Appears stated age. VITAL SIGNS: Temp 99.0, pulse 96, RR 21, O2 saturation 91% on 3 L, BP 100/62. HEENT: PERRLA. EOMs intact. Oral mucosa is moist without lesions. Posterior pharynx is clear. NECK: Full range of motion. No lymphadenopathy. RESPIRATORY: Symmetrical chest expansion. No accessory muscle use. Lung sounds are clear to auscultation. CARDIAC: S1, S2 present. Regular rate and rhythm. No murmurs, rubs, or gallops. ABDOMEN: Large, distended, soft (which the patient states is her baseline). Nontender to palpation. Bowel sounds normoactive. EXTREMITIES: Skin is warm and smooth bilaterally. No edema. No clubbing or cyanosis. Pedal pulses 2+ bilaterally. MUSCULOSKELETAL: The patient has limited range of motion to the left hip and leg. The patient has pain to palpation of the left hip and anterior thigh. No deformities palpated. NEURO: Awake, alert, and oriented x4. Motor strength is 5/5 in the upper and lower extremities. SKIN: The patient has multiple healed lesions to legs, no open areas appreciated. Reminder of the skin is intact. DIAGNOSTIC STUDIES/LAB DATA: WBC 8.1, hemoglobin 13.1, hematocrit 39, platelets 141. Sodium 127, potassium 4.8, chloride 97, carbon dioxide 22, BUN 22, creatinine 0.75, glucose 110. Total bilirubin is 1.5, AST is 45, ALT is 31 , alk phos is 183, CRP 111.90. Hip/pelvis x-rays, impression: No radiographic evidence of left hip fracture or acute pelvic fracture. As x-rays may be negative with nondisplaced hip fracture. Old bilateral anterior pelvic fractures with suggestion of pseudoarthritis on the right. Lumbar spine CT, impression: Osteopenia. Degenerative disk disease and osteoarthritis. Multilevel neuroforaminal narrowing as described. Moderate narrowing of the central canal at L3-L4. Inflammatory changes of the mesenteric fat with cystic lesion of the right xiang-abdomen that is incompletely evaluated on the current examination, recommended consideration and correlation with dedicated CT enhanced imaging of the abdomen and pelvis. Pelvic CT, impression: No acute pelvic or proximal femur fracture evident. Old basilar superior and inferior pubic ramus fractures with incomplete osseous bridging of the left inferior and right superior and inferior fracture sites with probable fibrous union. Suggestion of healed H-type sacral insufficiency fracture. The constellation of findings is concerning for potential metastatic cancer. Pelvic ultrasound suggested for further assessment of bilateral cystic ovarian lesions. Partially visualized duodenum was remarkable for long segment mural thickening involving the third segment concerning for either recurrent or persistent duodenitis or potential neoplastic thickening. Retroperitoneal perienteric inflammatory changes surrounding the visualized portion of the duodenum with caudal extension. No loculated retroperitoneal fluid collection or extra-enteric gas evident. Consider endoscopy for further assessment. Nodular contour of liver concerning for cirrhosis or potential metastatic lesions. ASSESSMENT AND PLAN: Ms. Syed is a 67-year-old female with a past medical history consistent for diabetes, alcoholic cirrhosis, transient ischemic attack , anxiety, depression, arthritis, chronic low back and chronic opioid use, who presented to the emergency room today with complaints of left hip pain and was found to be in intractable pain. In addition, the patient's imaging revealed findings that need further evaluation. The patient will be admitted for observation. 1. Left hip pain: As mentioned in HPI, the patient has prescriptions for oxycodone and fentanyl patches at home as she is a patient of the pain clinic. The patient reports these medications were not relieving the left hip pain. The patient was given hydromorphone in the emergency room, which caused her to be hypotensive. The patient will be admitted for pain control. I have contacted Dr. Vincent, who will be consulting and we appreciate his assistance. We will continue the patient's oxycodone currently and hold her fentanyl patches. I have ordered physical therapy and occupational therapy. 2. Bilateral cystic ovarian lesions: The patient reports that her primary care provider is aware of "cysts" on ovaries. She is unsure of the size or lateralization of these cysts that her primary care is aware of. Given these findings, I have ordered a pelvic ultrasound. The patient states understanding of this plan. 3. Duodenum long segment mural thickening: The patient reports that she is a known patient of Dr. Suarez. She reports that Dr. Suarez does serial ultrasounds of her liver given her history of alcoholic cirrhosis. She reports she has never had a colonoscopy. She reports she had routine endoscopies. Last endoscopy was 02/10/18. She reports that she and Dr. Suarez have been attempting to obtain MRI given a "polyp on her gallbladder," but she is awaiting insurance approval. She has no history of cancer. Given these findings and suggestion of endoscopy for further assessment, I have contacted GI and requested a consult. I appreciate their assistance. 4. Nodular contour of liver concerning for cirrhosis or potential metastatic lesions: As mentioned above, the patient has a known history of liver cirrhosis due to chronic alcohol use. Also, as mentioned above, Dr. Suarez has been doing serial ultrasounds given this diagnosis. Therefore, I will not repeat liver imaging at this time and await Dr. Suarez's input as he is the consulting GI physician. While the patient is admitted, we will continue her medications, which include furosemide, lactulose, Aldactone. 5. Insulin-dependent diabetes: The patient is on 30 units of Lantus at home and we will continue Lantus at a lower rate given her acute pain and change in diet while hospitalized. I will hold the patient's other diabetic medications to avoid hypoglycemia. The patient will be placed on a sliding scale with fingersticks a.c. and h.s. The patient will be provided with a consistent carb diet. 6. Restless legs syndrome: The patient will be continued on her home medication of Mirapex. 7. Transient ischemic attack: The patient and her daughter report this was a very long time ago and she is not currently medically managed. We will provide supportive care and defer to her primary care provider. 8. Anxiety and depression: We will continue the patient's home medication of Paxil. 9. Arthritis and chronic low back pain: We will continue the patient's home medications of oxycodone and gabapentin. As mentioned above, I am going to hold her fentanyl patch. Also, as mentioned above, I have requested a consultation of Dr. Vincent, as the patient is a known client of the Pain Clinic. I very much appreciate his assistance as the patient did become hypotensive using Dilaudid here in the ED and does have a complicated chronic pain history. 10. Hyponatremia: The patient's sodium is 127. In reviewing the patient's previous lab results, this seems consistent with her previous labs, but only a little bit lower than normal. I will hold off on providing IV fluids at this time as she did not take her diuretics this morning. I will repeat BMP this evening and plan accordingly. 11. FEN: The patient will be provided with a consistent carb diet. 12. The patient is a full code. 13. DVT prophylaxis: Based on the DVT Risk Assessment, the patient is high risk. I will order subcu heparin. TIME SPENT: Approximately 60 minutes were spent on this admission, greater than half the time was spent with the caregiver and the patient obtaining my history, performing my physical, and reviewing my plan of care. This case has been reviewed with my attending, Dr. Delgado, who agrees with my plan. Reviewed by VANESA BOSTON NP 07/25/18 [id number]/CPS #: [id number] SHILA
[2018-07-20] MEDS: Heparin VIAL(*) 5000 UNITS/ML VIAL (FIVE THOUSAND) SUBCUT SCH ×2 (17:05→21:00)
[2018-07-20] MEDS: Insulin GLARGINE(*) 1 UNITS UNIT SUBCUT SCH (17:06)
[2018-07-20] MEDS: Gabapentin CAP(*) 300 MG PO SCH ×2 (17:07→20:59)
[2018-07-20] MEDS: Potassium Chlor TAB* 20 MEQ TAB.ER PO SCH ×2 (17:08→21:01)
[2018-07-20] MEDS: Insulin LISPRO* 1 UNITS UNIT SUBCUT SCH ×2 (17:31→21:00)
[2018-07-20] MEDS: Pramipexole TAB* 0.125 MG PO SCH (20:59)
[2018-07-20] MEDS: Mirtazapine TAB* 15 MG PO SCH (20:59)
[2018-07-21 05:04] LABS: ABS Basophils 0.1 10^3/ul (0-0.2); ABS Eosinophils 0.2 10^3/ul (0-0.6); ABS Lymphocytes 0.7 10^3/ul (1.0-4.8); ABS Monocytes 0.7 10^3/ul (0-0.8); ABS Neutrophils 4.2 10^3/ul (1.5-7.7); ABS Nucleated RBC 0 10^3/ul; Eosinophil % 2.9 %; Hematocrit 36 % (33-41); Lymphocyte % 12.6 %; Mean Corpuscular HGB Conc 33 g/dL (31-36); Mean Corpuscular Hemoglobin 32 pg (27-31); Mean Corpuscular Volume 95 fL (80-97); Mean Platelet Volume 7.8 fL (7.4-10.4); Nucleated Red Blood Cells % 0.1; Platelet Count 122 10^3/uL (150-450); Red Blood Count 3.78 10^6 /uL (3.70-4.87); Red Cell Distribution Width 17 % (10.5-15); White Blood Count 5.9 10^3/uL (3.5-10.8)
[2018-07-21 05:17] LABS: Albumin/Globulin Ratio 0.6 (1-3); BUN/Creatinine Ratio 31.1 (8-20); Calcium 8.1 mg/dL (8.6-10.3); EGFR African American 95.3 (>60); EGFR Non-African American 78.8 (>60); Globulin 4.7 g/dL (2-4); Potassium 4.7 mmol/L (3.5-5.0); Total Bilirubin 1.3 mg/dL (0.2-1.0); Total Protein 7.7 g/dL (6.4-8.9)
[2018-07-21] MEDS: Heparin VIAL(*) 5000 UNITS/ML VIAL (FIVE THOUSAND) SUBCUT SCH ×3 (05:34→21:51)
[2018-07-21] MEDS: Insulin LISPRO* 1 UNITS UNIT SUBCUT SCH ×4 (07:25→21:50)
[2018-07-21] MEDS: oxyCODONE TAB* 5 MG TAB PO SCH ×3 (07:39→21:50)
[2018-07-21] MEDS: Gabapentin CAP(*) 300 MG PO SCH ×4 (07:40→21:51)
[2018-07-21] MEDS: Spironolactone TAB* 25 MG PO SCH (07:41)
[2018-07-21] MEDS: Furosemide TAB* 40 MG PO SCH (07:42)
[2018-07-21] MEDS: Ferrous Sulfate TAB* 325 MG PO SCH (07:43)
[2018-07-21] MEDS: PARoxetine HCL TAB* 10 MG PO SCH (07:43)
[2018-07-21] MEDS: Pantoprazole TAB * 40 MG TAB PO SCH (07:43)
[2018-07-21] MEDS: Potassium Chlor TAB* 20 MEQ TAB.ER PO SCH ×3 (07:44→21:51)
[2018-07-21] MEDS ORDERED: Magnesium Chloride EC TAB* 64 MG PO SCH (09:00)
[2018-07-21] MEDS ORDERED: fentaNYL PATCH 12 MCG/HR TRANSDERM PRN (12:49)
[2018-07-21] MEDS ORDERED: fentaNYL PATCH 12 MCG/HR TRANSDERM SCH (13:00)
[2018-07-21] MEDS: Baclofen TAB* 10 MG PO SCH ×2 (14:19→21:50)
[2018-07-21] MEDS: Insulin GLARGINE(*) 1 UNITS UNIT SUBCUT SCH (14:20)
--- NOTE | 2018-07-21 15:33 | PN ---
Subjective Date of Service: 07/21/18 Interval History: Ms. Syed is feeling better today. Her left hip pain is improved, but still present with certain movements. She has been able to ambulate to the bathroom with a RW, and that is her baseline. She reports a "jerking" sensation in her hip and leg when the pain is present. Denies CP, SOB, N/V. Requesting home fentanyl patch. Reports some dizziness, but states this is typical for her after she has taken her oxy which she had just taken prior to my exam. She is aware of her diagnoses of cirrhosis and ovarian cysts and has been following closely with her PCP and GI as an outpatient. No concerns or complaints from nursing. Family History: Unchanged from Admission Social History: Unchanged from Admission Past Medical History: Unchanged from Admission Objective Active Medications: Baclofen (Lioresal Tab*) 10 mg PO TID EDWIGE Dextrose (D50w Syringe 50 Ml*) 12.5 gm IV PUSH .FOR FS < 60 - SS PRN FS < 60 Fentanyl (Duragesic Patch 12 Mcg/Hr *) 12 mcg TRANSDERM Q72H EDWIGE Ferrous Sulfate (Ferrous Sulfate Tab*) 325 mg PO DAILY EDWIGE Furosemide (Lasix Tab*) 120 mg PO QAM EDWIGE Gabapentin (Neurontin Cap(*)) 600 mg PO QID EDWIGE Heparin Sodium (Porcine) (Heparin Vial(*)) 5,000 units SUBCUT Q8HR EDWIGE Insulin Glargine (Lantus(*)) 15 units SUBCUT Q24H EDWIGE Insulin Human Lispro (Humalog*) 0 units SUBCUT ACHS EDWIGE; Protocol Lactulose (Lactulose*) 30 ml PO BEDTIME EDWIGE Mirtazapine (Remeron Tab*) 30 mg PO BEDTIME EDWIGE Oxycodone HCl (Roxycodone Tab*) 10 mg PO QID EDWIGE Pantoprazole Sodium (Protonix Tab*) 40 mg PO DAILY EDWIGE Paroxetine HCl (Paxil Tab*) 30 mg PO DAILY EDWIGE Potassium Chloride (Klor Con Er Tab*) 20 meq PO TID EDWIGE Pramipexole Dihydrochloride (Mirapex Tab*) 0.25 mg PO BEDTIME EDWIGE Spironolactone (Aldactone Tab*) 300 mg PO QAM EDWIGE Vital Signs - 8 hr 07/21/18 07/21/18 07/21/18 07:39 07:40 08:06 Temperature 97.9 F Pulse Rate 85 Respiratory 18 18 20 Rate Blood Pressure 115/61 (mmHg) O2 Sat by Pulse 94 Oximetry 07/21/18 07/21/18 07/21/18 10:21 11:03 12:13 Temperature 97.5 F Pulse Rate 95 Respiratory 18 20 18 Rate Blood Pressure 97/68 (mmHg) O2 Sat by Pulse 89 Oximetry Oxygen Devices in Use Now: None Appearance: Middle-aged female sitting in chair in NAD Eyes: No Scleral Icterus Ears/Nose/Mouth/Throat: Mucous Membranes Moist Neck: NL Appearance and Movements; NL JVP, Trachea Midline Respiratory: Symmetrical Chest Expansion and Respiratory Effort, - - Fine crackles to bilat bases Cardiovascular: NL Sounds; No Murmurs; No JVD, RRR Abdominal: NL Sounds; No Tenderness; No Distention Extremities: No Edema Neurological: Alert and Oriented x 3, NL Sensation Lines/Tubes/Other Access: Clean, Dry and Intact Peripheral IV Nutrition: Taking PO's Result Diagrams: 07/21/18 04:50 07/21/18 04:50 Assess/Plan/Problems-Billing Assessment: Ms. Syed is a 67 yo F with PMH of DM, cirrhosis, esophageal varices s/p banding, chronic pain, TIA, and RLS; who presented to the ED with c/o left hip pain and was incidentally found on imaging to have duodenum mural thickening. - Patient Problems (1) Left hip pain Code(s): M25.552 - PAIN IN LEFT HIP Comment: - Pain developed 1 week prior to admission - Xray unremarkable for fracture and CT unremarkable for any correlating findings - Suspect muscular injury and muscle spasms - Continue oxycodone; resume fentanyl; start Baclofen (2) Duodenitis Code(s): K29.80 - DUODENITIS WITHOUT BLEEDING Comment: - Asymptomatic - CT shows long segment mural thickening concerning for recurrent/persistent duodenitis or neoplasm - Appreciate GI consult; plan for EGD on Monday - Continue to monitor for symptoms including abd pain or N/V (3) Bilateral ovarian cysts Code(s): N83.201 - UNSPECIFIED OVARIAN CYST, RIGHT SIDE; N83.202 - UNSPECIFIED OVARIAN CYST, LEFT SIDE Comment: - Asymptomatic - Known problem, though they appear to have increased in size since 2017 imaging - Patient not interested in pursuing treatment or further evaluation - Recommend continued f/u with PCP and possibly with a ENERGY DIRECTOR (4) Diabetes Code(s): E11.9 - TYPE 2 DIABETES MELLITUS WITHOUT COMPLICATIONS Comment: - Glucose under moderate control, <200 - Check A1c - Hold linagliptin, Acarbose (both NF) - Continue Lantus, Lispro SS; resume home glipizide (5) Cirrhosis Comment: - Stable - CT findings consistent with history of cirrhosis - Follows with Dr. Suarez as an outpatient - Continue spironolactone, furosemide, lactulose (6) Chronic pain Code(s): G89.29 - OTHER CHRONIC PAIN Comment: - Continue fentanyl, oxycodone, gabapentin (7) Hyponatremia Code(s): E87.1 - HYPO-OSMOLALITY AND HYPONATREMIA Comment: - Chronic, consistent with baseline - Continue to trend (8) Restless leg syndrome Comment: - Continue Mirapex (9) GERD (gastroesophageal reflux disease) Code(s): K21.9 - GASTRO-ESOPHAGEAL REFLUX DISEASE WITHOUT ESOPHAGITIS Comment : - Continue pantoprazole (10) Anxiety and depression Code(s): F41.9 - ANXIETY DISORDER, UNSPECIFIED; F32.9 - MAJOR DEPRESSIVE DISORDER, SINGLE EPISODE, UNSPECIFIED Comment: - Continue mirtazapine, paroxetine (11) DVT prophylaxis Comment: - Heparin SQ (12) Full code status Code(s): Z78.9 - OTHER SPECIFIED HEALTH STATUS Comment: Status and Disposition: Inpatient for likely EGD on Monday. Anticipate d/c home when medically stable and cleared by GI. Attending: Andre Kuhn
[2018-07-21] MEDS: fentaNYL Patch Check Q Shift 1 NOTE FOLLOW UP SCH (18:24)
[2018-07-21] MEDS: Mirtazapine TAB* 15 MG PO SCH (21:50)
[2018-07-21] MEDS: glipiZIDE TAB* 5 MG PO SCH (21:51)
[2018-07-21] MEDS: Pramipexole TAB* 0.125 MG PO SCH (23:46)
[2018-07-22] MEDS: oxyCODONE TAB* 5 MG TAB PO SCH ×5 (03:29→22:35)
--- NOTE | 2018-07-22 04:34 | PN ---
Hospitalist Progress Note Date of Service: 07/22/18 Pt had mechanical fall, on L knee, Vital signs normal, will use call baldwin in future and q1 vitals for 2 sets per protcol
[2018-07-22] MEDS ORDERED: NS 0.9% 500 ML* 500 ML IV ONE ×2 (05:08→06:05)
[2018-07-22] MEDS: Heparin VIAL(*) 5000 UNITS/ML VIAL (FIVE THOUSAND) SUBCUT SCH ×3 (05:43→22:37)
[2018-07-22] MEDS: fentaNYL Patch Check Q Shift 1 NOTE FOLLOW UP SCH (06:34)
[2018-07-22] MEDS ORDERED: NS 0.9% 1000 ML** 1,000 ML IV ONE (06:54)
[2018-07-22] MEDS ORDERED: Naloxone* 0.4 MG/ML 1 ML VIAL IV PUSH ONE (06:56)
[2018-07-22 08:39] LABS: Albumin 3.1 g/dL (3.2-5.2); Albumin/Globulin Ratio 0.6 (1-3); BUN/Creatinine Ratio 31.5 (8-20); Calcium 7.8 mg/dL (8.6-10.3); EGFR African American 96.8 (>60); Globulin 4.8 g/dL (2-4); Potassium 4.7 mmol/L (3.5-5.0); Total Bilirubin 0.9 mg/dL (0.2-1.0); Total Protein 7.9 g/dL (6.4-8.9)
[2018-07-22] MEDS: Spironolactone TAB* 25 MG PO SCH (08:40)
[2018-07-22] MEDS: Furosemide TAB* 40 MG PO SCH (08:40)
[2018-07-22] MEDS: Gabapentin CAP(*) 300 MG PO SCH ×4 (08:40→22:34)
[2018-07-22] MEDS: Baclofen TAB* 10 MG PO SCH ×4 (08:41→22:33)
[2018-07-22] MEDS: Potassium Chlor TAB* 20 MEQ TAB.ER PO SCH ×4 (08:41→22:31)
[2018-07-22] MEDS: Ferrous Sulfate TAB* 325 MG PO SCH (08:41)
[2018-07-22] MEDS: PARoxetine HCL TAB* 10 MG PO SCH (08:41)
[2018-07-22] MEDS: glipiZIDE TAB* 5 MG PO SCH ×2 (08:41→22:34)
[2018-07-22] MEDS: Pantoprazole TAB * 40 MG TAB PO SCH (08:41)
[2018-07-22] MEDS: Insulin LISPRO* 1 UNITS UNIT SUBCUT SCH ×4 (08:44→22:36)
[2018-07-22] MEDS: Insulin GLARGINE(*) 1 UNITS UNIT SUBCUT SCH (12:31)
--- NOTE | 2018-07-22 13:53 | PN ---
Subjective Date of Service: 07/22/18 Interval History: Ms. Syed is sleeping on my exam and will not wake to speak with me. Her daughter is at the bedside and reports she has not been sleeping well recently. It is typical for her to become difficult to arouse when she hasn't been sleeping well. Daughter reports she also tends to slur her words when she is tired. Has not been c/o abd pain or N/V. Hip pain has improved significantly with initiation of Baclofen. Nursing reported that the patient was concerned that she was having a stroke, but there was no clear reason why she thought that. No neuro deficits noted by nursing. There was an episode overnight when the patient was unarousable and there was concern that this was medication related. She woke prior to Narcan being administered. Her fentanyl patch was removed per MD order. Had a fall overnight. No head trauma and no injuries noted. Family History: Unchanged from Admission Social History: Unchanged from Admission Past Medical History: Unchanged from Admission Objective Active Medications: Baclofen (Lioresal Tab*) 10 mg PO TID EDWIGE Dextrose (D50w Syringe 50 Ml*) 12.5 gm IV PUSH .FOR FS < 60 - SS PRN FS < 60 Fentanyl (Duragesic Patch 12 Mcg/Hr *) 12 mcg TRANSDERM Q72H EDWIGE Ferrous Sulfate (Ferrous Sulfate Tab*) 325 mg PO DAILY EDWIGE Furosemide (Lasix Tab*) 120 mg PO QAM EDWIGE Gabapentin (Neurontin Cap(*)) 600 mg PO QID EDWIGE Glipizide (Glucotrol Tab*) 5 mg PO BID EDWIGE Heparin Sodium (Porcine) (Heparin Vial(*)) 5,000 units SUBCUT Q8HR EDWIGE Insulin Glargine (Lantus(*)) 15 units SUBCUT Q24H EDWIGE Insulin Human Lispro (Humalog*) 0 units SUBCUT ACHS EDWIGE; Protocol Lactulose (Lactulose*) 30 ml PO BEDTIME EDWIGE Mirtazapine (Remeron Tab*) 30 mg PO BEDTIME EDWIGE Oxycodone HCl (Roxycodone Tab*) 10 mg PO QID EDWIGE Pantoprazole Sodium (Protonix Tab*) 40 mg PO DAILY EDWIGE Paroxetine HCl (Paxil Tab*) 30 mg PO DAILY EDWIGE Potassium Chloride (Klor Con Er Tab*) 20 meq PO TID EDWIGE Pramipexole Dihydrochloride (Mirapex Tab*) 0.25 mg PO BEDTIME EDWIGE Spironolactone (Aldactone Tab*) 300 mg PO QAM EDWIGE Vital Signs - 8 hr 07/22/18 07/22/18 07/22/18 06:08 06:34 07:04 Temperature 98.1 F Pulse Rate 88 Respiratory 16 16 Rate Blood Pressure 87/58 88/54 (mmHg) O2 Sat by Pulse 94 Oximetry 07/22/18 07/22/18 07/22/18 07:58 08:00 08:40 Temperature 97.8 F Pulse Rate 87 Respiratory 18 20 18 Rate Blood Pressure 101/73 (mmHg) O2 Sat by Pulse 92 Oximetry Oxygen Devices in Use Now: None Appearance: Middle-aged female sitting in chair, sleeping, in NAD Eyes: No Scleral Icterus Ears/Nose/Mouth/Throat: Mucous Membranes Moist Neck: NL Appearance and Movements; NL JVP, Trachea Midline Respiratory: Symmetrical Chest Expansion and Respiratory Effort, Clear to Auscultation Cardiovascular: NL Sounds; No Murmurs; No JVD, RRR Abdominal: NL Sounds; No Tenderness; No Distention, - - Large, round Extremities: No Edema Neurological: Alert and Oriented x 3, NL Sensation Lines/Tubes/Other Access: Clean, Dry and Intact Peripheral IV Nutrition: Taking PO's Result Diagrams: 07/21/18 04:50 07/22/18 08:04 Assess/Plan/Problems-Billing Assessment: Ms. Syed is a 67 yo F with PMH of DM, cirrhosis, esophageal varices s/p banding, chronic pain, TIA, and RLS; who presented to the ED with c/o left hip pain and was incidentally found on imaging to have duodenum mural thickening. - Patient Problems (1) Left hip pain Code(s): M25.552 - PAIN IN LEFT HIP Comment: - Pain developed 1 week prior to admission, now improved on Baclofen - Xray unremarkable for fracture and CT unremarkable for any correlating findings - Suspect muscular injury and muscle spasms - Fentanyl patch removed overnight d/t sedation; will continue to hold at this point and it is not clear if it is safe for her to return home with fentanyl patch d/t frequent falls and periods when she is difficult to arouse - Continue oxycodone, Baclofen (2) Duodenitis Code(s): K29.80 - DUODENITIS WITHOUT BLEEDING Comment: - Asymptomatic - CT shows long segment mural thickening concerning for recurrent/persistent duodenitis or neoplasm - Appreciate GI consult; plan for EGD tomorrow - Continue to monitor for symptoms including abd pain or N/V (3) Bilateral ovarian cysts Code(s): N83.201 - UNSPECIFIED OVARIAN CYST, RIGHT SIDE; N83.202 - UNSPECIFIED OVARIAN CYST, LEFT SIDE Comment: - Asymptomatic - Known problem, though they appear to have increased in size since 2017 imaging - Patient not interested in pursuing treatment or further evaluation - Recommend continued f/u with PCP and possibly with a EQUIPMENT COORDINATOR (4) Diabetes Code(s): E11.9 - TYPE 2 DIABETES MELLITUS WITHOUT COMPLICATIONS Comment: - Glucose under generally poor control, 100-300s - A1c 9.1% - Hold linagliptin, Acarbose (both NF) - Continue Lantus, Lispro SS, glipizide (5) Cirrhosis Comment: - Stable - CT findings consistent with history of cirrhosis - Follows with Dr. Suarez as an outpatient - Continue spironolactone, furosemide, lactulose (6) Chronic pain Code(s): G89.29 - OTHER CHRONIC PAIN Comment: - It may not be safe for her to return home on fentanyl d/t falls and sedation, but she follows with the pain clinic so will defer to them for management - Continue oxycodone, gabapentin (7) Hyponatremia Code(s): E87.1 - HYPO-OSMOLALITY AND HYPONATREMIA Comment: - Chronic, consistent with baseline - Continue to trend (8) Restless leg syndrome Comment: - Continue Mirapex (9) GERD (gastroesophageal reflux disease) Code(s): K21.9 - GASTRO-ESOPHAGEAL REFLUX DISEASE WITHOUT ESOPHAGITIS Comment : - Continue pantoprazole (10) Anxiety and depression Code(s): F41.9 - ANXIETY DISORDER, UNSPECIFIED; F32.9 - MAJOR DEPRESSIVE DISORDER, SINGLE EPISODE, UNSPECIFIED Comment: - Continue mirtazapine, paroxetine (11) DVT prophylaxis Comment: - Heparin SQ (12) Full code status Code(s): Z78.9 - OTHER SPECIFIED HEALTH STATUS Comment: Status and Disposition: Inpatient for likely EGD tomorrow. Anticipate d/c home when medically stable and cleared by GI, possibly tomorrow if EGD is unremarkable. Attending: Andre Kuhn
--- NOTE | 2018-07-22 14:18 | CONS ---
CONSULTATION REPORT: DATE OF CONSULT: 07/20/18 The patient was seen in the emergency room. INDICATION FOR CONSULTATION: Duodenitis. NARRATIVE: Ms. Syed is a very pleasant 67-year-old female, well known to myself who is being admitted for significant hip pain. She came to the emergency room with worsening of her hip pain. I have seen her multiple times in the past for her underlying cirrhosis. I had just seen her in the office in the past few weeks. She is up-to-date on ultrasound for hepatocellular carcinoma screening. We were obtaining authorization for an MRCP regarding possible gallbladder polyp. The patient did have a pelvis CT in the emergency room, which revealed partially visualized duodenum, remarkable for a long segment mural thickening involving the third segment, concerning for either recurrent or persistent duodenitis or potentially a neoplastic thickening. She also has a nodular-appearing liver consistent with her cirrhosis. She denies any black, tarry stools. No abdominal pain. No nausea, no vomiting. PAST MEDICAL HISTORY: Significant for: 1. Diabetes. 2. Cirrhosis secondary to alcohol abuse. 3. History of esophageal varices and ascites. 4. Depression. 5. Anxiety. 6. TIA. 7. Restless leg. 8. Arthritis. 9. Chronic back pain. PAST SURGICAL HISTORY: Includes spinal fusion. MEDICATIONS: At home include: 1. Glipizide. 2. Aldactone. 3. Zinc. 4. Fentanyl patch. 5. Remeron. 6. Oxycodone. 7. Paxil. 8. Protonix. 9. Iron. 10. Lasix. 11. Gabapentin. 12. Insulin. 13. Lactulose. 14. Fosamax. 15. Potassium. 16. Tradjenta. 17. Triamcinolone. 18. Calcium. 19. Vitamin E. ALLERGIES: To MORPHINE, VANCO, MELOXICAM, PENICILLIN, BACTRIM, ASPIRIN, NSAIDS , and SULFA. FAMILY HISTORY: Significant for diabetes. SOCIAL HISTORY: She quit smoking many years ago. She used to drink alcohol; however, has not had anything to drink in 5 years. REVIEW OF SYSTEMS: Reviewed 12 systems; other than those mentioned in the HPI were unremarkable. PHYSICAL EXAMINATION: On physical exam, temperature is 99.0, blood pressure is 102/59, O2 sat is 88%, respiratory rate of 21, pulse is 96. General: Chronically ill-appearing female, in no apparent distress, alert, oriented, pleasant, fluent. HEENT: Mucous membranes are moist without lesions, ulcers, or exudate. Neck is supple. Trachea is midline. Head is normocephalic, atraumatic. Neuro: No asterixis. Heart: Regular rate and rhythm. No murmurs , rubs, or gallops. Lungs: Clear to auscultation bilaterally. No wheezes, rales, or rhonchi. Abdomen is obese. Positive bowel sounds. Soft, nontender, nondistended. No hepatosplenomegaly, masses, rebound, or guarding. DIAGNOSTIC STUDIES/LAB DATA: Labs, of note white count is 8.1, platelets of 141. Chemistry shows sodium of 131. LFTs, AST and ALT are normal, alkaline phosphatase 178. Albumin of 3.1. ASSESSMENT AND PLAN: This is a pleasant 67-year-old female being admitted for pelvic pain who underwent a pelvis CT, which showed possible duodenitis. I think at this point I do need to perform an upper endoscopy. I will make arrangements for it in the next few days. It very well could be duodenitis secondary to H. pylori. It could be due to her low albumin stage and cirrhosis. We do need to rule out malignancy too. I will make arrangements for her EGD. Her cirrhosis seems to be under stable decompensated state at this point. I will follow along. [id number]/[facility] #: [id number] [facility]
[2018-07-22] MEDS: Mirtazapine TAB* 15 MG PO SCH (22:33)
[2018-07-22] MEDS: Pramipexole TAB* 0.125 MG PO SCH (22:35)
[2018-07-23] MEDS: Heparin VIAL(*) 5000 UNITS/ML VIAL (FIVE THOUSAND) SUBCUT SCH ×5 (05:29→20:15)
[2018-07-23 06:24] LABS: BUN/Creatinine Ratio 28.9 (8-20); Calcium 7.8 mg/dL (8.6-10.3); EGFR African American 92.4 (>60); EGFR Non-African American 76.4 (>60)
[2018-07-23] MEDS: Insulin LISPRO* 1 UNITS UNIT SUBCUT SCH ×4 (07:59→20:16)
[2018-07-23] MEDS: Ferrous Sulfate TAB* 325 MG PO SCH (09:56)
[2018-07-23] MEDS: Baclofen TAB* 10 MG PO SCH ×2 (09:57→13:44)
[2018-07-23] MEDS: Gabapentin CAP(*) 300 MG PO SCH ×4 (09:58→20:14)
[2018-07-23] MEDS: Potassium Chlor TAB* 20 MEQ TAB.ER PO SCH ×3 (09:58→20:15)
[2018-07-23] MEDS: oxyCODONE TAB* 5 MG TAB PO SCH ×3 (09:59→17:41)
[2018-07-23] MEDS: glipiZIDE TAB* 5 MG PO SCH ×2 (10:00→20:12)
[2018-07-23] MEDS: Pantoprazole TAB * 40 MG TAB PO SCH (10:00)
[2018-07-23] MEDS: PARoxetine HCL TAB* 10 MG PO SCH (10:01)
[2018-07-23] MEDS: Spironolactone TAB* 25 MG PO SCH (10:12)
[2018-07-23] MEDS: Furosemide TAB* 40 MG PO SCH (10:12)
[2018-07-23] MEDS: Insulin GLARGINE(*) 1 UNITS UNIT SUBCUT SCH (13:50)
[2018-07-23] MEDS ORDERED: fentaNYL* 50 MCG/ML 2 ML VIAL (100 MCG VIAL) ONE (15:29)
[2018-07-23] MEDS ORDERED: Midazolam* 1 MG/ML 10 ML VIAL (10 MG) ONE (15:29)
--- NOTE | 2018-07-23 16:30 | PN ---
Subjective Date of Service: 07/23/18 Interval History: Ms. Syed is feeling better today. Her hip pain has been well managed with the addition of Baclofen, but she has only been taking 5mg at a time as she feels 10mg is too much. She is less tired than yesterday. Denies CP, SOB, N/V. She is hungry and anxious to be done with her endoscopy. No concerns or complaints from nursing. Family History: Unchanged from Admission Social History: Unchanged from Admission Past Medical History: Unchanged from Admission Objective Active Medications: Baclofen (Lioresal Tab*) 10 mg PO TID EDWIGE Dextrose (D50w Syringe 50 Ml*) 12.5 gm IV PUSH .FOR FS < 60 - SS PRN FS < 60 Ferrous Sulfate (Ferrous Sulfate Tab*) 325 mg PO DAILY EDWIGE Furosemide (Lasix Tab*) 120 mg PO QAM EDWIGE Gabapentin (Neurontin Cap(*)) 600 mg PO QID EDWIGE Glipizide (Glucotrol Tab*) 5 mg PO BID EDWIGE Heparin Sodium (Porcine) (Heparin Vial(*)) 5,000 units SUBCUT Q8HR EDWIGE Insulin Glargine (Lantus(*)) 15 units SUBCUT Q24H EDWIGE Insulin Human Lispro (Humalog*) 0 units SUBCUT ACHS EDWIGE; Protocol Lactulose (Lactulose*) 30 ml PO BEDTIME EDWIGE Mirtazapine (Remeron Tab*) 30 mg PO BEDTIME EDWIGE Oxycodone HCl (Roxycodone Tab*) 10 mg PO QID EDWIGE Pantoprazole Sodium (Protonix Tab*) 40 mg PO DAILY EDWIGE Paroxetine HCl (Paxil Tab*) 30 mg PO DAILY EDWIGE Potassium Chloride (Klor Con Er Tab*) 20 meq PO TID EDWIGE Pramipexole Dihydrochloride (Mirapex Tab*) 0.25 mg PO BEDTIME EDWIGE Spironolactone (Aldactone Tab*) 300 mg PO QAM EDWIGE Vital Signs - 8 hr 07/23/18 07/23/18 07/23/18 09:58 09:59 10:10 Temperature Pulse Rate Respiratory 16 16 16 Rate Blood Pressure (mmHg) O2 Sat by Pulse Oximetry 07/23/18 07/23/18 11:13 11:36 Temperature 97.9 F 97.9 F Pulse Rate 92 92 Respiratory 16 16 Rate Blood Pressure 115/57 115/57 (mmHg) O2 Sat by Pulse 90 90 Oximetry Oxygen Devices in Use Now: None Appearance: Middle-aged female sitting in chair in NAD Eyes: No Scleral Icterus Ears/Nose/Mouth/Throat: Mucous Membranes Moist Neck: NL Appearance and Movements; NL JVP, Trachea Midline Respiratory: Symmetrical Chest Expansion and Respiratory Effort, Clear to Auscultation Cardiovascular: NL Sounds; No Murmurs; No JVD, RRR Abdominal: - - Large, round, nontender Extremities: No Edema Neurological: Alert and Oriented x 3 Lines/Tubes/Other Access: Clean, Dry and Intact Peripheral IV Nutrition: Taking PO's Result Diagrams: 07/21/18 04:50 07/23/18 05:30 Assess/Plan/Problems-Billing Assessment: Ms. Syed is a 67 yo F with PMH of DM, cirrhosis, esophageal varices s/p banding, chronic pain, TIA, and RLS; who presented to the ED with c/o left hip pain and was incidentally found on imaging to have duodenum mural thickening. - Patient Problems (1) Left hip pain Code(s): M25.552 - PAIN IN LEFT HIP Comment: - Pain developed 1 week prior to admission, now improved on baclofen - Xray unremarkable for fracture and CT unremarkable for any correlating findings - Suspect muscular injury and muscle spasms - Fentanyl patch removed previously this admission; will continue to hold at this point and it is not clear if it is safe for her to return home with fentanyl patch d/t frequent falls and periods when she is difficult to arouse - Continue oxycodone, baclofen (2) Duodenitis Code(s): K29.80 - DUODENITIS WITHOUT BLEEDING Comment: - Asymptomatic - CT shows long segment mural thickening concerning for recurrent/persistent duodenitis or neoplasm - Appreciate GI consult; EGD today showing possible proximal duodenitis; MRCP tomorrow - Continue to monitor for symptoms including abd pain or N/V (3) Bilateral ovarian cysts Code(s): N83.201 - UNSPECIFIED OVARIAN CYST, RIGHT SIDE; N83.202 - UNSPECIFIED OVARIAN CYST, LEFT SIDE Comment: - Asymptomatic - Known problem, though they appear to have increased in size since 2017 imaging - Patient not interested in pursuing treatment or further evaluation - Recommend continued f/u with PCP and possibly with a BENEFITS PROCESSOR (4) Diabetes Code(s): E11.9 - TYPE 2 DIABETES MELLITUS WITHOUT COMPLICATIONS Comment: - Glucose improving - A1c 9.1% - Hold linagliptin, Acarbose (both NF) - Continue Lantus, Lispro SS, glipizide (5) Cirrhosis Comment: - Stable - CT findings consistent with history of cirrhosis - Follows with Dr. Suarez as an outpatient - Continue spironolactone, furosemide, lactulose (6) Chronic pain Code(s): G89.29 - OTHER CHRONIC PAIN Comment: - It may not be safe for her to return home on fentanyl d/t falls and sedation, but she follows with the pain clinic so will defer to them for management - Continue oxycodone, gabapentin (7) Hyponatremia Code(s): E87.1 - HYPO-OSMOLALITY AND HYPONATREMIA Comment: - Chronic, consistent with baseline - Continue to trend (8) Restless leg syndrome Comment: - Continue Mirapex (9) GERD (gastroesophageal reflux disease) Code(s): K21.9 - GASTRO-ESOPHAGEAL REFLUX DISEASE WITHOUT ESOPHAGITIS Comment : - Continue pantoprazole (10) Anxiety and depression Code(s): F41.9 - ANXIETY DISORDER, UNSPECIFIED; F32.9 - MAJOR DEPRESSIVE DISORDER, SINGLE EPISODE, UNSPECIFIED Comment: - Continue mirtazapine, paroxetine (11) DVT prophylaxis Comment: - Heparin SQ (12) Full code status Code(s): Z78.9 - OTHER SPECIFIED HEALTH STATUS Comment: Status and Disposition: Inpatient. Anticipate d/c home when medically stable and cleared by GI, probably tomorrow after MRCP. Attending: Millicent Villar
[2018-07-23] MEDS: Mirtazapine TAB* 15 MG PO SCH (20:13)
[2018-07-23] MEDS: Baclofen TAB* 10 MG PO PRN (20:13)
[2018-07-23] MEDS: Pramipexole TAB* 0.125 MG PO SCH (20:13)
--- NOTE | 2018-07-23 22:12 | PRO ---
CC: Dr. Richmond * DATE OF PROCEDURE: 07/23/18 - ROOM #411 PROCEDURE: EGD. INDICATION: Recent CT showing duodenitis and duodenal thickening concerning for malignancy. REFERRING PHYSICIAN: Dr. Richmond. MEDICATIONS GIVEN: 25 mcg IV fentanyl, 4 mg IV Versed. DESCRIPTION OF PROCEDURE: After the EGD procedure including risks, benefits, and alternatives not limited to perforation, surgery, and/or were explained to Mrs. Syed, written consent was then obtained. IV medication was given and a bite-block was placed between the teeth. An Olympus gastroscope was then inserted into the patient's mouth, advanced down the esophagus, into the stomach, into the distal duodenum. In the esophagus at the GE junction, Z-line was intact. No erosive esophagitis, stricture, or ring was seen. She did have small varices. The scope was advanced through the GE junction into the body of the stomach. Retroflex and forward views revealed portal hypertensive gastropathy. A biopsy was obtained for H. pylori. The scope was advanced through a widely patent pylorus, into the duodenal bulb, into the third or fourth portion of the duodenum. The distal duodenum was unremarkable. I did take a biopsy. No malignancy was seen. The scope was then withdrawn back into the bulb, where there was nodular duodenitis. I did take a biopsy of the largest nodule/polyp. It did ooze a little bit of blood; however , did stop after watching and washing it for a couple of minutes. The scope was then withdrawn from the patient. She tolerated the procedure well, was returned to the recovery room in stable condition. IMPRESSION: 1. Complete upper endoscopy into the fourth portion of the duodenum with biopsies. 2. Biopsies for duodenitis. 3. Biopsies for H. pylori. 4. Portal hypertensive gastropathy. 5. Small esophageal varices. [id number]/[facility] #: [id number] [facility]
[2018-07-24] MEDS: oxyCODONE TAB* 5 MG TAB PO SCH ×3 (00:03→13:50)
[2018-07-24] MEDS: Heparin VIAL(*) 5000 UNITS/ML VIAL (FIVE THOUSAND) SUBCUT SCH ×2 (05:53→13:56)
[2018-07-24] MEDS: Insulin LISPRO* 1 UNITS UNIT SUBCUT SCH ×2 (08:24→13:48)
[2018-07-24] MEDS: Pantoprazole TAB * 40 MG TAB PO SCH (08:43)
[2018-07-24] MEDS: glipiZIDE TAB* 5 MG PO SCH (08:44)
[2018-07-24] MEDS: Gabapentin CAP(*) 300 MG PO SCH ×2 (08:44→13:52)
[2018-07-24] MEDS: PARoxetine HCL TAB* 10 MG PO SCH (08:44)
[2018-07-24] MEDS: Potassium Chlor TAB* 20 MEQ TAB.ER PO SCH ×2 (08:44→13:50)
[2018-07-24] MEDS: Ferrous Sulfate TAB* 325 MG PO SCH (08:44)
[2018-07-24] MEDS: Furosemide TAB* 40 MG PO SCH (08:46)
[2018-07-24] MEDS: Spironolactone TAB* 25 MG PO SCH (08:46)
[2018-07-24] MEDS ORDERED: Gadoteridol* (CONTRAST) 279.3 MG/ML 10 ML IV ONE (11:27)
[2018-07-24] MEDS: Baclofen TAB* 10 MG PO PRN (13:51)
[2018-07-24] MEDS: Insulin GLARGINE(*) 1 UNITS UNIT SUBCUT SCH (14:44)
[2018-07-24 16:15] VITALS: BP 117/60
--- NOTE | 2018-07-25 01:32 | DS ---
CC: Dr. Estrada Richmond; Dr. Justin Suarez; Dr. Vincent * DISCHARGE SUMMARY: DATE OF ADMISSION: 07/20/18 DATE OF DISCHARGE: 07/24/18 PRIMARY CARE PROVIDER: Dr. Estrada Richmond. [employer] OFFICER: Dr. Justin Suarez. ATTENDING PHYSICIAN: Dr. Millicent Villar * (dictated by Margaret Licea NP). PRIMARY DIAGNOSES: 1. Left hip pain secondary to muscle spasms. 2. Duodenitis. 3. Bilateral ovarian cysts. SECONDARY DIAGNOSES: 1. Diabetes mellitus type 2. 2. Alcoholic cirrhosis. 3. Chronic pain. 4. Hyponatremia. 5. Restless leg syndrome. 6. Gastroesophageal reflux disease. 7. Anxiety. 8. Depression. STUDIES WHILE IN THE HOSPITAL: 1. Hip/pelvis x-ray on 07/20/18 reads as no radiographic evidence of left hip fracture or acute pelvic fracture. X-rays may be negative with nondisplaced hip fracture. If there is persistent clinical concern, MRI or, in the setting of contraindication to MRI or limitation, an emergent access to MRI CT would be suggested. Old bilateral anterior pelvic fractures with suggestion of pseudarthrosis on the right. 2. Lumbar spine CT on 07/20/18 reads as osteopenia, degenerative disk disease and osteoarthritis. There is multilevel neuroforaminal narrowing as described in the body of the report. There is moderate narrowing of the central canal at L3-L4. There is inflammatory change in the mesenteric fat with a cystic lesion of the right xiang-abdomen that is incompletely evaluated on the current exam. Recommended consideration of correlation with dedication contrast-enhanced imaging of the abdomen and pelvis. 3. Pelvis CT on 07/20/18 reads as no acute pelvic or proximal femur fracture evident. Old bilateral superior/inferior pubic ramus fractures with incomplete osseous bridging at the left inferior and right superior and inferior fracture sites with probable fibrous union. Suggestion of healed H type sacral insufficiency fracture. The constellation of findings is concerning for potential metastatic cancer. Pelvic ultrasound suggested for further assessment of bilateral cystic ovarian lesions. Partially visualized duodenum is remarkable for long segment mural thickening involving the third segment concerning for either recurrent or persistent duodenitis or potentially neoplastic thickening. Retroperitoneal perienteric inflammatory change surrounding the visualization portion of the duodenum with caudal extension. No loculated retroperitoneal fluid collection or extra-enteric gas evident. Consider endoscopy for further assessment. Nodular contour of the liver concerning for cirrhosis or potentially metastatic lesions. 4. Pelvis ultrasound on 07/20/18 reads as complex cystic masses in both ovaries. In the right, adnexal cystic mass measures 6.4 x 2.6 x 5.1 cm. The thick mass in the left ovary measuring 4.2 x 2.7 x 4.5 cm. 5. MRCP on 07/24/18 reads as findings consistent with cirrhosis and portal hypertension. The gallbladder polyp is not well seen due to motion artifact. Recommended a followup right upper quadrant ultrasound to assess for change in size. Interstitial stranding adjacent to the transverse duodenum and inferior pancreas suggestive of duodenitis or pancreatitis. Consider CT imaging of the abdomen with IV and oral contrast for further evaluation. Trace bilateral pleural effusions and trace amount of ascites. HISTORY OF PRESENT ILLNESS AND HOSPITAL COURSE: Ms. Syed is a 67-year-old female with past medical history of alcoholic cirrhosis, ascites and esophageal varices, status post banding, restless leg, TIA, anxiety, depression, chronic back pain, and chronic opioid use, who presented to the emergency room on with complaints of left hip pain. Please see the history and physical by Yaneli Rodgers NP, for complete summary of the events leading up to this hospitalization. In short, the patient awoke in the morning with significant leg pain starting in her groin and advancing to her left hip. She reported the pain a 15/10. She did report that she had a mechanical fall approximately 1-1/ 2 weeks prior to presenting to the emergency room. The patient does take opioids at baseline, though reported that these were not alleviating her pain. In the emergency room, she was given 1 dose of hydromorphone causing significant hypotension. She had imaging as noted above with multiple concerning findings. Because of this, the patient was admitted by the hospitalist service. The patient's fentanyl patch was removed and her oxycodone was held. Because of the concern for duodenitis, Dr. Suarez was consulted. I will note that the patient does typically see Dr. Suarez as an outpatient, so he is familiar with her case. He felt as though due to the CT findings the patient would benefit from an upper endoscopy. He felt as though the duodenitis could be secondary to H. pylori, her chronic cirrhosis, or malignancy. He did feel as though her cirrhosis was at baseline and had no concerns about the CT findings. Regarding the patient's hip pain, she ultimately was restarted on her oxycodone and fentanyl. I did also start the patient on baclofen. On 07/22/18, the patient had a mechanical fall in the hospital with no noted injuries. That same morning , she was noted to be lethargic and difficult to arouse. She ultimately did not require Narcan, though her fentanyl patch was again removed. The patient's hip pain was improved with the baclofen and so it is presumed that her hip pain was secondary to muscle spasm. This is also consistent with history that her daughter provides. The patient is a poor historian and is not able to provide a good explanation of her symptoms. The patient did not have any abdominal symptoms and denied any abdominal pain, nausea, or vomiting. Regarding her ovarian cysts, these are a chronic problem for the patient. It does appear that they have increased in size since 2017 imaging. I did discuss this with the patient and she is not interested in pursuing further treatment or further evaluation. I have recommended that if she does choose to pursue further evaluation or treatment, she should follow up with her primary care provider and possibly a night clerk. The patient's cirrhosis remained stable during this hospitalization. On 07/22/18, the patient underwent an EGD with Dr. Suarez. He did note some nodular duodenitis , though no other significant findings; he did take biopsies. Due to her CT findings and her chronic medical problems, Dr. Suarez felt as though it was necessary for the patient to undergo an MRCP while here in the hospital and so the patient underwent an MRCP on 07/24/18, results are noted above. At this point, the patient has no new or concerning findings on MRCP and all the findings are consistent with her chronic diagnosis. She reports feeling well and is anxious to return home. She reports minimal hip pain and feels as though the baclofen has been quite effective in relieving her pain. She would like to continue this going forward. She also continues to deny any abdominal symptoms including abdominal pain, nausea or vomiting. She has no neurological deficits and has been ambulating without difficulty. Ms. Syed is stable for discharge today. Vital signs are as follows: Temp 97.9, heart rate 93, respiratory rate 20, oxygen saturation 92% on room air. Blood pressure 117/60. DISCHARGE MEDICATIONS: New Medications: 1. Baclofen 5 mg p.o. t.i.d. p.r.n. muscle spasm. Changed Medications: 1. Pantoprazole 40 mg p.o. daily (previously was 20 mg p.o. daily). Continued Medications: 1. Ferrous sulfate 325 mg p.o. daily. 2. Furosemide 120 mg p.o. daily. 3. Gabapentin 600 mg p.o. four times a day. 4. Glipizide 5 mg p.o. b.i.d. 5. Lactulose 30 mL p.o. at bedtime. 6. Mirtazapine 30 mg p.o. at bedtime. 7. Oxycodone 10 mg p.o. four times a day. 8. Paroxetine 30 mg p.o. daily. 9. Potassium chloride 20 mEq p.o. t.i.d. 10. Mirapex 0.25 mg p.o. at bedtime. 11. Spironolactone 300 mg p.o. daily. 12. Acarbose 50 mg p.o. t.i.d. 13. Fosamax 70 mg p.o. weekly. 14. Ammonium lactate 12% 1 application topically p.r.n. 15. Ocuvite 1 tab p.o. daily. 16. Calcium carbonate 600 mg p.o. b.i.d. 17. Cholecalciferol 2000 units p.o. every other day. 18. Glargine 30 units subcu daily. 19. Linagliptin 5 mg p.o. daily. 20. Magnesium chloride 71.5 mg p.o. daily. 21. Triamcinolone 0.5% 1 application topically b.i.d. 22. Urea 20% 1 application p.r.n. 23. Vitamin E 200 mg p.o. daily. 24. Zinc 50 mg p.o. b.i.d. Discontinued Medications: 1. Fentanyl. DISCHARGE PLAN: Ms. Syed will be discharged to home. Activity will be as tolerated. Diet should be diabetic, consistent carb. Medications are noted above. Again, the patient has been started on baclofen for her hip pain, which appears to have been quite effective. The dosing of her PPI has been increased per recommendations from Gastroenterology. She can continue her other usual medications as noted above. The only other change I have made is that the patient should no longer use a fentanyl patch. It appears as though her chronic pain is well controlled with her oxycodone alone and I feel as though it would be a risk at this point for the patient to resume her fentanyl patch as she is noted to have frequent falls at home and she was noted to be quite lethargic while using the fentanyl patch. She will need to follow up with her provider at the pain clinic for further management of her pain medication, though those are my recommendations at this time. She will need to follow up with her PCP in 4 to 7 days and she will need to follow up with Dr. Suarez within the next 1 to 2 weeks for biopsy results. She has been advised to return to the emergency room or nearest hospital for any worsening symptoms, shortness of breath, lightheadedness, dizziness, chest discomfort, high fever, chills, night sweats, loss of consciousness, or any other worrisome signs or symptoms. DISCHARGE CONDITION: Stable. DISCHARGE DISPOSITION: Home. This is a summarized report of a complex medical history and hospital stay. For further details, please see the entire medical record. TIME SPENT: Approximately 45 minutes were spent on this discharge. MARGARET LICEA NP [id number]/CPS #: [id number] SHILA
== END 2018-07-24 17:05 | disposition home or self-care (01) | DRG 556 ==
LOC: ED 06:24 → MED 13:27 → OBSVTOIN 07-21 16:12
PROVIDERS: ADMIT Student in an Organized Health Care Education/Training Program; ATTEND Internal Medicine
PROC: 0DD98ZX Extraction of Duodenum, Via Natural or Artificial Opening Endoscopic, Diagnostic (ICD-10-PCS; principal; 2018-07-23)
PROC: 0DD68ZX Extraction of Stomach, Via Natural or Artificial Opening Endoscopic, Diagnostic (ICD-10-PCS; 2018-07-23)
DX: M62.838 Other muscle spasm (principal); E87.1 Hypo-osmolality and hyponatremia; K76.6 Portal hypertension; Z68.42 Body mass index [BMI] 45.0-49.9, adult; I85.00 Esophageal varices without bleeding; E66.9 Obesity, unspecified; M25.552 Pain in left hip; K29.80 Duodenitis without bleeding; N83.202 Unspecified ovarian cyst, left side; N83.201 Unspecified ovarian cyst, right side; E11.9 Type 2 diabetes mellitus without complications; K70.30 Alcoholic cirrhosis of liver without ascites; G89.29 Other chronic pain; G25.81 Restless legs syndrome; K21.9 Gastro-esophageal reflux disease without esophagitis; M54.5 Low back pain; F41.9 Anxiety disorder, unspecified; F32.9 Major depressive disorder, single episode, unspecified; M85.88 Other specified disorders of bone density and structure, other site; M19.90 Unspecified osteoarthritis, unspecified site; M47.9 Spondylosis, unspecified; M51.36 Other intervertebral disc degeneration, lumbar region; F10.21 Alcohol dependence, in remission; I95.2 Hypotension due to drugs; K31.89 Other diseases of stomach and duodenum; T40.2X5A Adverse effect of other opioids, initial encounter; Y92.238 Other place in hospital as the place of occurrence of the external cause; W22.03XA Walked into furniture, initial encounter; W18.30XA Fall on same level, unspecified, initial encounter; Y92.239 Unspecified place in hospital as the place of occurrence of the external cause; Z87.81 Personal history of (healed) traumatic fracture; Z91.81 History of falling; Z86.73 Personal history of transient ischemic attack (TIA), and cerebral infarction without residual deficits; Y92.009 Unspecified place in unspecified non-institutional (private) residence as the place of occurrence of the external cause; Z79.4 Long term (current) use of insulin; Z79.891 Long term (current) use of opiate analgesic; Z79.899 Other long term (current) drug therapy; Z88.6 Allergy status to analgesic agent; Z88.1 Allergy status to other antibiotic agents; Z88.5 Allergy status to narcotic agent; Z88.0 Allergy status to penicillin; Z88.2 Allergy status to sulfonamides; Z88.8 Allergy status to other drugs, medicaments and biological substances; Z83.3 Family history of diabetes mellitus; Z87.891 Personal history of nicotine dependence
CPT/HCPCS: 36415; 72131; 72192; 74183; 76376; 76856; 80048; 80053; 81003; 83036; 85025; 86140; 87077; 88305; 99156; 99285; A9270-GY; A9579; G0378; G8978-GP-CL; G8979-GP-CJ; G8987-GO-CI; G8988-GO-CI; G8989-GO-CI; J1170; J1644; J2250; J3010

== ENCOUNTER 2018-12-04 09:53 | Emergency (ER) | payer MEDICARE ==
[2018-12-04 11:22] LABS: ABS Basophils 0.1 10^3/ul (0-0.2); ABS Eosinophils 0.2 10^3/ul (0-0.6); ABS Lymphocytes 0.6 10^3/ul (1.0-4.8); ABS Monocytes 0.7 10^3/ul (0-0.8); ABS Neutrophils 5.2 10^3/ul (1.5-7.7); Eosinophil % 2.8 %; Hematocrit 40 % (35-47); Hemoglobin 13.6 g/dL (12.0-16.0); Lymphocyte % 9.3 %; Mean Corpuscular HGB Conc 34 g/dL (31-36); Mean Corpuscular Hemoglobin 32 pg (27-31); Mean Corpuscular Volume 94 fL (80-97); Mean Platelet Volume 7.9 fL (7.4-10.4); Nucleated Red Blood Cells % 0.1; Platelet Count 127 10^3/uL (150-450); Red Blood Count 4.26 10^6 /uL (3.70-4.87); Red Cell Distribution Width 19 % (10-15); White Blood Count 6.8 10^3/uL (3.5-10.8)
[2018-12-04 11:58] LABS: Albumin 3.4 g/dL (3.2-5.2); Albumin/Globulin Ratio 0.6 (1-3); BUN/Creatinine Ratio 30.7 (8-20); C Reactive Protein 75.53 mg/L (<8.01); Calcium 9.2 mg/dL (8.6-10.3); EGFR African American 93.8 (>60); EGFR Non-African American 77.6 (>60); Globulin 5.6 g/dL (2-4); Potassium 4.5 mmol/L (3.5-5.0); Total Bilirubin 1.1 mg/dL (0.2-1.0)
[2018-12-04] MEDS ORDERED: NS 0.9% 1000 ML** 1,000 ML IV ONE (12:31)
[2018-12-04 12:41] LABS: Urine Appearance Clear; Urine Bilirubin Negative (Negative); Urine Blood Negative (Negative); Urine Color Yellow; Urine Glucose Negative (Negative); Urine Ketones Negative (Negative); Urine Nitrite Negative (Negative); Urine Protein Negative (Negative); Urine Specific Gravity 1.017 (1.010-1.030); Urine Urobilinogen Negative (Negative)
--- NOTE | 2018-12-04 12:51 | ED ---
Abdominal Pain/Female - HPI Summary HPI Summary: Pt is a 67 y/o F presenting to the ED with a chief complaint of R sided abd pain initially onset on 12/01/18 that has worsened in severity. It is present mainly on the R side of her abd, and is worse with drinking water. She has diarrhea but it is associated with her current use of abx. She denies fever, N/V , constipation, or blood in her stool. 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 Suarez is aware of a polyp on her gallbladder that has been growing. She has also had paracentesis once in the past, numerous years ago. - History of Current Complaint Chief Complaint: EDAbdPain Stated Complaint: LOWER ABD PAIN PER PT Time Seen by Provider: 12/04/18 12:19 Hx Obtained From: Patient Onset/Duration: Gradual Onset, Lasting Days, Still Present Timing: Days Severity Initially: Moderate Severity Currently: Severe Pain Intensity: 8 Pain Scale Used: 0-10 Numeric Location: Discrete At: RUQ, Discrete At: RLQ Radiates: No Character: Other: - "like gas" Aggravating Factor(s): Other: - drinking water Alleviating Factor(s): Nothing Associated Signs and Symptoms: Positive: Diarrhea. Negative: Fever, Constipation, Blood in Stool, Nausea, Vomiting Allergies/Adverse Reactions: Allergies Allergy/AdvReac Type Severity Reaction Status Date / Time morphine Allergy Severe Anaphylatic Verified 10/05/18 10:29 Shock vancomycin Allergy Intermediate Rash And Verified 10/05/18 10:29 Itching meloxicam Allergy Rash Verified 10/05/18 10:29 Penicillins Allergy Swelling Verified 10/05/18 10:29 sulfamethoxazole Allergy Unknown Verified 10/05/18 10:29 [From Bactrim] Reaction Details trimethoprim [From Bactrim] Allergy Unknown Verified 10/05/18 10:29 Reaction Details aspirin AdvReac CIRRHOSIS Verified 10/05/18 10:29 erythromycin base AdvReac Vomiting Verified 10/05/18 10:29 NSAIDS (Non-Steroidal AdvReac CIRRHOSIS Verified 10/05/18 10:29 Anti-Inflamma Sulfa (Sulfonamide AdvReac GI Upset Verified 10/05/18 10:29 Antibiotics) Home Medications: Home Medications Ammonium Lactate 12% [Lac-Hydrin 12 %] 1 applic TOPICAL DAILY PRN 12/04/18 [ History Confirmed 12/04/18] C,E,Zinc,Copper 11/Subaq9n/Lut [Ocuvite Adult 50 Plus Softgel] 1 cap PO DAILY [History Confirmed 12/04/18] Calcium Carbonate [Calcium] 600 mg PO BID 12/04/18 [History Confirmed 12/04/18] DOXYcycline CAP(*) [DOXYcycline 100MG CAP(*)] 100 mg PO BID 12/04/18 [History Confirmed 12/04/18] Furosemide TAB* [Lasix TAB*] 120 mg PO DAILY 12/04/18 [History Confirmed ] Gabapentin CAP(*) [Neurontin 300 CAP(*)] 600 mg PO QID 12/04/18 [History Confirmed 12/04/18] PARoxetine HCL TAB* [Paxil TAB*] 30 mg PO DAILY 12/04/18 [History Confirmed ] Pantoprazole TAB (NF) [Protonix TAB (NF)] 20 mg PO DAILY 12/04/18 [History Confirmed 12/04/18] fentaNYL PATCH 12 MCG/HR * [Duragesic Patch 12 Mcg/Hr *] 12 mcg TRANSDERM Q72H 12/04/18 [History Confirmed 12/04/18] oxyCODONE TAB* [Roxycodone TAB 5 mg*] 10 mg PO .Q4-6H PRN 12/04/18 [History Confirmed 12/04/18] PMH/Surg Hx/FS Hx/Imm Hx Previously Healthy: Yes Endocrine/Hematology History: Reports: Hx Diabetes - DM II Cardiovascular History: Reports: Hx Hypertension Denies: Hx Pacemaker/ICD, Other Cardiovascular Problems/Disorders Respiratory History: Denies: Hx Chronic Obstructive Pulmonary Disease (COPD) GI History: Reports: 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, Hx Gastroesophageal Reflux Disease, Other GI Disorders - Esophageal varices History: Denies: Hx Renal Disease Musculoskeletal History: Reports: Hx Arthritis, Hx Back Problems - lumbar fusion in 1990, Hx Orthopedic Injury - 04/18/18: Fx three ribs from a fall, Other Musculoskeletal History - Restless leg syndrome Denies: Hx Osteoporosis Sensory History: Reports: Hx Cataracts - bilat, Hx Contacts or Glasses Denies: Hx Hearing Aid Opthamlomology History: Reports: Hx Cataracts - bilat, Hx Contacts or Glasses Neurological History: Reports: Hx Transient Ischemic Attacks (TIA) Psychiatric History: Reports: Hx Anxiety, Hx Depression Denies: Hx Panic Disorder - Cancer History Hx Chemotherapy: No Hx Radiation Therapy: No - Surgical History Surgery Procedure, Year, and Place: LUMBAR SPINAL FUSION 1990, tonsillectomy. TUBAL LIGATION. WISDOM TEETH. DOLORES CATARACTS Hx Anesthesia Reactions: No Infectious Disease History: No Infectious Disease History: Denies: Hx of Known/Suspected MRSA, Traveled Outside the [place] in Last 30 Days - Family History Known Family History: Positive: Diabetes - Mother - Social History Alcohol Use: None Alcohol Amount: Hx ETOH abuse, none currently Hx Substance Use: No Substance Use Type: Reports: None Hx Tobacco Use: Yes - not currently Smoking Status (MU): Former Smoker Type: Cigarettes Amount Used/How Often: 5 CIGS/DAY Length of Time of Smoking/Using Tobacco: 30 years Have You Smoked in the Last Year: Yes Review of Systems Negative: Fever Positive: Abdominal Pain, Diarrhea. Negative: Vomiting, Nausea, Other - blood in stool, constipation All Other Systems Reviewed And Are Negative: Yes Physical Exam - Summary Physical Exam Summary: Constitutional: Well-developed, Well-nourished, Alert. (-) Distressed Skin: Warm, Dry HENT: Normocephalic; Atraumatic Eyes: Conjunctiva normal Neck: Musculoskeletal ROM normal neck. (-) JVD, (-) Stridor, (-) Tracheal deviation Cardio: Rhythm regular, rate normal, Heart sounds normal; Intact distal pulses; The pedal pulses are 2+ and symmetric. Radial pulses are 2+ and symmetric. (-) Murmur Pulmonary/Chest wall: Effort normal. (-) Respiratory distress, (-) Wheezes, (-) Rales Abd: Distended, positive fluid wave, no rebound, no guarding, RUQ tenderness, negative Willet sign Musculoskeletal: (-) Edema Lymph: (-) Cervical adenopathy Neuro: Alert, Oriented x3 Psych: Mood and affect Normal Triage Information Reviewed: Yes Vital Signs On Initial Exam: Initial Vitals Temp Pulse Resp BP Pulse Ox 97.0 F 93 18 125/67 91 12/04/18 09:58 12/04/18 09:58 12/04/18 09:58 12/04/18 09:58 12/04/18 09:58 Vital Signs Reviewed: Yes Diagnostics - Vital Signs Vital Signs Temp Pulse Resp BP Pulse Ox 12/04/18 12:01 96.9 F 94 18 123/75 92 12/04/18 09:58 97.0 F 93 18 125/67 91 - Laboratory Lab Results: Lab Results 12/04/18 12/04/18 12/04/18 Range/Units 11:10 11:10 11:11 WBC 6.8 (3.5-10.8) 10^3/uL RBC 4.26 (3.70-4.87) 10^6 /uL Hgb 13.6 (12.0-16.0) g/dL Hct 40 (35-47) % MCV 94 (80-97) fL MCH 32 H (27-31) pg MCHC 34 (31-36) g/dL RDW 19 H (10-15) % Plt Count 127 L (150-450) 10^3/uL MPV 7.9 (7.4-10.4) fL Neut % (Auto) 76.7 % Lymph % (Auto) 9.3 % [place] % (Auto) 10.2 % Eos % (Auto) 2.8 % Baso % (Auto) 1.0 % Absolute Neuts (auto) 5.2 (1.5-7.7) 10^3/ul Absolute Lymphs (auto) 0.6 L (1.0-4.8) 10^3/ul Absolute Monos (auto) 0.7 (0-0.8) 10^3/ul Absolute Eos (auto) 0.2 (0-0.6) 10^3/ul Absolute Basos (auto) 0.1 (0-0.2) 10^3/ul Absolute Nucleated RBC 0.0 10^3/ul Nucleated RBC % 0.1 Sodium 130 L (135-145) mmol/L Potassium 4.5 (3.5-5.0) mmol/L Chloride 103 (101-111) mmol/L Carbon Dioxide 20 L (22-32) mmol/L Anion Gap 7 (2-11) mmol/L BUN 23 (6-24) mg/dL Creatinine 0.75 (0.51-0.95) mg/dL Est GFR ( Amer) 93.8 (>60) Est GFR (Non-Af Amer) 77.6 (>60) BUN/Creatinine Ratio 30.7 H (8-20) Glucose 136 H (70-100) mg/dL Lactic Acid 1.1 (0.5-2.0) mmol/L Calcium 9.2 (8.6-10.3) mg/dL Total Bilirubin 1.10 H (0.2-1.0) mg/dL AST 38 (13-39) U/L ALT 29 (7-52) U/L Alkaline Phosphatase 184 H (34-104) U/L C-Reactive Protein 75.53 H (<8.01) mg/L Total Protein 9.0 H (6.4-8.9) g/dL Albumin 3.4 (3.2-5.2) g/dL Globulin 5.6 H (2-4) g/dL Albumin/Globulin Ratio 0.6 L (1-3) Amylase 23 L (29-103) U/L Lipase 81 (11.0-82.0) U/L Urine Color Urine Appearance Urine pH (5-9) Ur Specific [place] (1.010-1.030) Urine Protein (Negative) Urine Ketones (Negative) Urine Blood (Negative) Urine Nitrate (Negative) Urine Bilirubin (Negative) Urine Urobilinogen (Negative) Ur Leukocyte Esterase (Negative) Urine Glucose (Negative) Urine Ascorbic Acid (Negative) 12/04/18 Range/Units 12:24 WBC (3.5-10.8) 10^3/uL RBC (3.70-4.87) 10^6 /uL Hgb (12.0-16.0) g/dL Hct (35-47) % MCV (80-97) fL MCH (27-31) pg MCHC (31-36) g/dL RDW (10-15) % Plt Count (150-450) 10^3/uL MPV (7.4-10.4) fL Neut % (Auto) % Lymph % (Auto) % [place] % (Auto) % Eos % (Auto) % Baso % (Auto) % Absolute Neuts (auto) (1.5-7.7) 10^3/ul Absolute Lymphs (auto) (1.0-4.8) 10^3/ul Absolute Monos (auto) (0-0.8) 10^3/ul Absolute Eos (auto) (0-0.6) 10^3/ul Absolute Basos (auto) (0-0.2) 10^3/ul Absolute Nucleated RBC 10^3/ul Nucleated RBC % Sodium (135-145) mmol/L Potassium (3.5-5.0) mmol/L Chloride (101-111) mmol/L Carbon Dioxide (22-32) mmol/L Anion Gap (2-11) mmol/L BUN (6-24) mg/dL Creatinine (0.51-0.95) mg/dL Est GFR ( Amer) (>60) Est GFR (Non-Af Amer) (>60) BUN/Creatinine Ratio (8-20) Glucose (70-100) mg/dL Lactic Acid (0.5-2.0) mmol/L Calcium (8.6-10.3) mg/dL Total Bilirubin (0.2-1.0) mg/dL AST (13-39) U/L ALT (7-52) U/L Alkaline Phosphatase (34-104) U/L C-Reactive Protein (<8.01) mg/L Total Protein (6.4-8.9) g/dL Albumin (3.2-5.2) g/dL Globulin (2-4) g/dL Albumin/Globulin Ratio (1-3) Amylase (29-103) U/L Lipase (11.0-82.0) U/L Urine Color Yellow Urine Appearance Clear Urine pH 6.0 (5-9) Ur Specific [place] 1.017 (1.010-1.030) Urine Protein Negative (Negative) Urine Ketones Negative (Negative) Urine Blood Negative (Negative) Urine Nitrate Negative (Negative) Urine Bilirubin Negative (Negative) Urine Urobilinogen Negative (Negative) Ur Leukocyte Esterase Negative (Negative) Urine Glucose Negative (Negative) Urine Ascorbic Acid * A (Negative) Result Diagrams: 12/04/18 11:11 12/04/18 11:10 Lab Statement: Any lab studies that have been ordered have been reviewed, and results considered in the medical decision making process. - CT CT a/p CT Interpretation Completed By: Radiologist Summary of CT Findings: 1. CYSTIC MASSES OF THE ADNEXA BILATERALLY MEASURING UP TO 4.8 CM, CORRESPONDING TO FINDINGS NOTED ON PREVIOUS PELVIC CT AND ULTRASOUND. THE DIFFERENTIAL INCLUDES PRIMARY OR METASTATIC OVARIAN NEOPLASM. 2. CIRRHOTIC LIVER. 3. SPLENOMEGALY. 4. ATHEROSCLEROSIS. ED physician has reviewed this report. - Ultrasound Abd US Ultrasound Interpretation Completed By: Radiologist Summary of Ultrasound Findings: 1. A solitary broad-based polyp at the fundus of the gallbladder has progressively increase in size to 1.3 x 1.5 cm ( subcentimeter in size in 2016). Surgical consultation is recommended. 2. Early cirrhotic morphology of the liver with no focal lesion. There is a pulsatile waveform in the main portal vein. This can be seen in the setting of cirrhosis. ED physician has reviewed this report. Abdominal Pain Fem Course/Dx - Course Course Of Treatment: Patient is here with right upper quadrant pain that has been continuous since Monday. On arrival, patient was overall well-appearing with an overall benign exam. Patient had blood performed which showed no leukocytosis. Patient had an elevated CRP and LFTs consistent with cirrhosis. Patient had negative ultrasound for any acute [place]. Patient has a growing polyp which she is aware of and is being followed by a surgeon for. Patient a CT scan which showed no acute abnormality. - Diagnoses Provider Diagnoses: RUQ pain, Cirrhosis, Cyst of gallbladder Discharge - Sign-Out/Discharge Documenting (check all that apply): Patient Departure Patient Received Moderate/Deep Sedation with Procedure: No - Discharge Plan Condition: Stable Disposition: HOME Patient Education Materials: Acute Abdominal Pain (ED) Referrals: Estrada Richmond MD [Primary Care Provider] - Justin Suarez MD [Medical Doctor] - Additional Instructions: Please follow up with Dr. Suarez within the next 2-3 days. Return to the emergency department with any new or worsening symptoms. - Billing Disposition and Condition Condition: STABLE Disposition: Home - Attestation Statements Document Initiated by Christ: Yes Documenting Scribe: Heather Lyles Provider For Whom Christ is Documenting (Include Credential): Vicente Gabriel MD. Scribe Attestation: Heather Santoro, scribed for Vicente Gabriel MD. on 12/04/18 at 1534. Scribe Documentation Reviewed: Yes Provider Attestation: The documentation as recorded by the Heather senior accurately reflects the service I personally performed and the decisions made by me, Vicente Gabriel MD. Status of Scribe Document: Viewed
[2018-12-04] MEDS ORDERED: Iodixanol* (CONTRAST) 320 MG/ML 100 ML SDV IV ONE (14:26)
[2018-12-04 15:26] VITALS: BP 118/61
== END 2018-12-04 15:37 | disposition home or self-care (01) ==
LOC: ED 09:53
DX: R10.11 Right upper quadrant pain (principal); K70.30 Alcoholic cirrhosis of liver without ascites; K82.8 Other specified diseases of gallbladder; E11.9 Type 2 diabetes mellitus without complications; I10 Essential (primary) hypertension; K21.9 Gastro-esophageal reflux disease without esophagitis; F41.9 Anxiety disorder, unspecified; F32.9 Major depressive disorder, single episode, unspecified; Z87.891 Personal history of nicotine dependence; Z88.6 Allergy status to analgesic agent; Z88.1 Allergy status to other antibiotic agents; Z88.5 Allergy status to narcotic agent; Z88.0 Allergy status to penicillin; Z88.2 Allergy status to sulfonamides; Z88.8 Allergy status to other drugs, medicaments and biological substances; Z79.891 Long term (current) use of opiate analgesic; Z79.899 Other long term (current) drug therapy; R16.1 Splenomegaly, not elsewhere classified; I70.0 Atherosclerosis of aorta
CPT/HCPCS: 36415; 74177; 76705; 80053; 81003; 82150; 83605; 83690; 85025; 86140; 96360; 96361; 99283; Q9967

== ENCOUNTER 2019-01-12 01:01 | Emergency (ER) | payer MEDICARE, OTHER ==
--- OUTSIDE RECORDS SUMMARY | 2019-01-12 01:13 | XMS REPORT | Continuity of Care Document ---
:1950 External Reference #:[id number] Author Name Paresh Washington JR, DO Address [address], [place] [address] Care Team Providers Name Role Phone Estrada Richmond M.D. 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 Problems Description No Information Available Social History Type Date Description Comments Sex Unknown Cigarette Use Former Cigarette Smoker ETOH Use Denies alcohol use Recreational Drug Use Denies Drug Use Exercise Type/Frequency Exercises regularly Seat Belt/Car Seat Always uses seat belt Allergies, Adverse Reactions, Alerts Active Allergies Reaction Severity Comments Date Penicillin 12/25/2018 Bactrim 12/25/2018 Meloxicam 12/25/2018 Vancomycin 12/25/2018 Morphine 12/25/2018 Medications Active Medications SIG Qnty Indications Ordering Date Provider Zinc dissolve 1 lozenge 100tabs Paresh Washington 12/25/2018 50mg Tablets in mouth up to JR, DO every 2 hours, max of 6/day Vitamin E-200 Unknown 200Unit Capsules Urea topical every day Unknown 20% Cream to heels for 1 week then as needed Tradjenta Unknown 5mg Tablets Spironolactone take 1 tablet by Unknown 100mg mouth two times Tablets daily Slow-Mag Unknown 71.5-119mg Tablets DR Turnerxole Unknown Dihydrochloride 0.125mg Tablets Ocuvite Adult 50+ Unknown Capsules Mirtazapine Unknown 30mg Tablets Lactulose 30 milliliters by Unknown 10GM/15ML mouth once a day Solution for 1 week, then as needed severe constipation Klor-Con M20 1 by mouth every Unknown 20Meq day Tablets ER Glipizide take one tablet by Unknown 5mg Tablets mouth 4 times daily Gabapentin take 1 tablet by Unknown 600mg Tablets mouth four times a day Ferrous Sulfate 1 by mouth every Unknown 325(65Fe) day mg Tablets Duragesic-12 Unknown 12mcg/HR Patches 72HR Ammonium Lactate apply to affected Unknown 12% areas 2x/d prn for Lotion dry skin; avoid use on face; avoid sun exposure on areas where cream has been applied Alendronate Sodium 1 by mouth every Unknown 70mg week Tablets Acarbose before each meal Unknown 50mg Tablets Basaglar Kwikpen 100 Unit/ML daily Unknown 100Unit/ML Solution Pen-Inject Doxycycline Hyclate 1 by mouth twice a Unknown 100mg day Capsules Calcium 500 1 by mouth twice a Unknown day [phone]-mg-Unit Tablets Paroxetine HCL take one a day Unknown 30mg Tablets Oxycodone HCL 1 tablet PO Unknown 10mg Tablets Pantoprazole Sodium 1 by mouth every Unknown 20mg day Tablets DR Furosemide 1 1/2 tabs daily Unknown 80mg Tablets Vitamin D High Potency Every other day Unknown 1000Unit Capsules Immunizations Description No Information Available Vital Signs Date Vital Result Comment 12/25/2018 10:00am BP Systolic 142 mmHg BP Diastolic 68 mmHg Weight 176.00 lb Last Menstrual Period [id number] Parity 3 Results Description No Information Available Procedures Date Code Description Status 12/25/2018 41621 Echography Pelvic Limited Or Follow-Up Completed 12/25/2018 06677 Echography Transvaginal Completed Medical Devices Description No Information Available Encounters Type Date Location Provider Dx Diagnosis Office Visit 12/25/2018 [facility] Paresh Washington JR, 2:30p DO Office Visit 12/25/2018 [facility] Paresh Washington JR, N83.209 Unspecified ovarian 10:00a DO cyst, unspecified side Assessments Date Code Description Provider 12/25/2018 N83.209 Unspecified ovarian cyst, unspecified side Ultrasounds 12/25/2018 N83.209 Unspecified ovarian cyst, unspecified side Paresh Washington JR, DO Plan of Treatment 12/25/2018 - Paresh Washington JR DON83.209 Unspecified ovarian cyst, unspecified sideComments:68 y/o post menopausal female with bilateral complex ovarian cysts , appear to have grown significantly since initial incidental finding in April 2016. Will repeat [employer] TVUSN to re-assess as last USN was in June of this year.Will collect JENNIFER, although CA125 likely elevated secondary to ascitesWill place [employer]/Oncology consult Functional Status Description No Information Available Mental Status Description No Information Available Referrals Refer to Reason for Referral Status Appt Date Cierra Odell M.D. 68 year old with Bilateral complex ovarian Created masses, increasing in size [address] [place],[facility] [phone]
--- OUTSIDE RECORDS SUMMARY | 2019-01-12 01:13 | XMS REPORT | Continuity of Care Document ---
:1950 External Reference #:[id number] Author Name Anatoly Solis MD, FACS (transmitted by agent of provider Waleska Saldaña) Address [address] [place] [address] [address] [place] [address] Care Team Providers Name Role Phone Estrada Richmond M.D. 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 Onset: 05/20/2016 Spinal stenosis of lumbar region Ilir Watt M.D. Onset: 05/30/2016 Vitamin D deficiency Onset: 06/28/2013 Liver function tests abnormal Onset: 06/28/2013 Mixed hyperlipidemia Onset: 06/28/2013 Anxiety state Onset: 06/28/2013 Tobacco user Onset: 06/28/2013 Disorder of sebaceous gland Onset: 04/08/2011 Diabetic peripheral neuropathy associated with Marcelino Murillo MD Onset: 02/21 type 2 diabetes mellitus Cerebrovascular disease Marcelino Murillo MD Onset: 02/21/2018 Mild cognitive disorder Marcelino Murillo MD Onset: 02/21/2018 Mild cognitive disorder Marcelino Murillo MD Onset: 05/15/2018 Social History Type Date Description Comments Sex Unknown Tobacco Use Start: Unknown Former Cigarette End: Unknown Smoker Smoking Status Reviewed: 01/01/19 Former Cigarette Smoker ETOH Use Denies alcohol use Discontinued approx 2013 Tobacco Use Start: Unknown Patient is a former End: smoker Recreational Drug Use Denies Drug Use Exercise Type/Frequency Exercises sporadically Allergies, Adverse Reactions, Alerts Active Allergies Reaction Severity Comments Date Morphine hypotension 05/20/2016 Meloxicam Free Text Moderate 09/01/2016 Sulfamethoxazole / Trimethoprim 08/21/2014 Penicillin vertigo 05/20/2016 Sulfa Antibiotics can take some 05/20/2016 Erythromycin GI Upset 05/20/2016 Tylenol 05/20/2016 Ibuprofen 05/20/2016 Vancomycin red man syndrome 01/15/2018 Medications Active Medications SIG Qnty Indications Ordering Date Provider Ureacin-20 apply to legs 113.400unit R60.0 Estrada Richmond, 09/28/2017 20% Cream bid as needed. s M.D. Paroxetine HCL 1 by mouth qd 90tabs Estrada Richmond, 08/08/2017 30mg M.D. Tablets Glipizide Take One 60tabs E11.9 Estrada Richmond, 02/21/2017 5mg Tablets Tablet By M.D. Mouth Twice A Day Neurontin 2 by mouth 3x 120caps R25.2 Estrada Richmond, 11/10/2015 300mg Capsules per day M.D. Ferrous Sulfate 1 by mouth 90tabs Estrada Richmond, 08/18/2014 325(65Fe) every day M.D. mg Tablets Baclofen 1 tab bid Hernandez, 10mg Tablets HAFSA Bowman-JOVANNY Basaglar Shakir 24 units sq qd Nick Keita MD 100Unit/ML Solution Pen-Inject Vitamin E 1 po qd Unknown 200Unit Capsules Alendronate Sodium take 1 tablet Unknown 70mg by mouth every Tablets week Vitamin D3 1 by mouth Unknown 2000Unit every day Tablets Atorvastatin Calcium take 1 tablet Unknown 20mg at bedtime Tablets Fentanyl apply 1 patch Unknown 12mcg/HR Patches every 3 days 72HR maximum daily dose = 1 patch every 3 days Calcium 600 1 by mouth Unknown 600mg Tablets every day Zinc Gluconate 1 by mouth bid Unknown 50mg every day Tablets Klor-Con M20 1 by mouth Unknown 20Meq every day Tablets ER Pramipexole once daily 1 Unknown Dihydrochloride hour before 0.125mg sleep Tablets Slow-Mag 1 by mouth Unknown 71.5-119mg every day Tablets Pantoprazole Sodium 1 tab po daily Estrada Richmond, 20mg M.D. Tablets Oxycodone HCL 1 tab po tid Estrada Richmond 10mg prn for back M.D. Tablets pain Spironolactone 3 by mouth Estrada Richmond, 100mg every day M.D. Tablets Mirtazapine take 1 tab at Estrada Richmond, 30mg Tablets bedtime M.D. Lactulose 30ml day 3 no Estrada Richmond, 10GM/15ML bm may repeat M.D. Solution 4 and 5. Gabapentin 1 tabs po four Estrada Richmond, 600mg Capsules times daily M.D. Furosemide 1 1/2 by mouth Estrada Richmond, 80mg Tablets every day M.D. Paroxetine HCL 1 by mouth Estrada Richmond, 20mg every day M.D. Tablets History Medications Oxygen Please use o2 at R09.02 Peggy Chong, 10/08/2018 - Unknown Misc 2L/min at night CASH MANAGEMENT ASSOCIATE via nasal cannula Immunizations Description No Information Available Vital Signs Date Vital Result Comment 01/01/2019 11:11am Height 58 inches 4'10" Weight 176.00 lb Heart Rate 88 /min BP Systolic Sitting 112 mmHg BP Diastolic Sitting 68 mmHg Respiratory Rate 18 /min Body Temperature 97.1 F BMI (Body Mass Index) 36.8 kg/m2 10/08/2018 10:28am Height 58 inches 4'10" Weight 174.25 lb Heart Rate 94 /min BP Systolic Sitting 138 mmHg Lue reg cuff BP Diastolic Sitting 80 mmHg Lue reg cuff Respiratory Rate 18 /min O2 % BldC Oximetry 94 % On Ra BMI (Body Mass Index) 36.4 kg/m2 Results Test Date Facility Test Result H/L Range Note Arterial Blood Gas 10/23/2018 [facility] PH Arterial 7.47 High 7.35-7.45 [address] [place] [address] [phone] Pco2 Arterial 32 mmHg Low 35-45 Po2 Arterial 78 mmHg Low 80-100 O2 Saturation Arterial 96.6 % Normal 94.0-98.0 Base Excess Arterial 0.3 mmol/L Normal -2.0-2.0 1 Hco3 Arterial 25.1 mmol/L Normal 19-31 1 Reference ranges based on room air. Procedures Date Code Description Status 09/18/2018 81477 Polysomnography Sleep Staging 4+ Parameters Completed Medical Devices Description No Information Available Encounters Type Date Location Provider Dx Diagnosis Office Visit 10/08/2018 [facility] Peggy G47.33 Obstructive sleep 10:30a [facility] apnea (adult) [facility] (pediatric) R09.02 Hypoxemia E66.9 Obesity, unspecified Z68.34 Body mass index (BMI) 34.0-34.9, adult Office Visit 09/19/2018 2:30p [facility] Marcelino Murillo MD R06.83 [facility] G56.03 Carpal tunnel syndrome, bilateral upper limbs R41.3 Other amnesia R53.83 Other fatigue Office Visit 08/27/2018 1:00p [facility] Lucía Rowe R06.83 [facility] R53.83 Other fatigue Office Visit 07/24/2018 9:32a [facility] Margaret Anuja, M25.552 Pain in Assoc,pc CASH MANAGEMENT ASSOCIATE left hip Hospitalists K29.80 Duodenitis without bleeding K70.30 Alcoholic cirrhosis of liver without ascites E11.9 Type 2 diabetes mellitus without complications G25.81 Restless legs syndrome E87.1 Hypo-osmolality and hyponatremia Office Visit 07/23/2018 9:32a [facility] Margaret Anuja, M25.552 Pain in Assoc,pc CASH MANAGEMENT ASSOCIATE left hip Hospitalists K29.80 Duodenitis without bleeding N83.202 Unspecified ovarian cyst, left side E11.9 Type 2 diabetes mellitus without complications E87.1 Hypo-osmolality and hyponatremia G25.81 Restless legs syndrome Office Visit 07/22/2018 9:31a [facility] Margaret Anuja, M25.552 Pain in Assoc,pc CASH MANAGEMENT ASSOCIATE left hip Hospitalists K29.80 Duodenitis without bleeding N83.202 Unspecified ovarian cyst, left side E11.9 Type 2 diabetes mellitus without complications G25.81 Restless legs syndrome F41.9 Anxiety disorder, unspecified E87.1 Hypo-osmolality and hyponatremia Office Visit 07/21/2018 9:31a [facility] Margaret Anuja, M25.552 Pain in Assoc,pc CASH MANAGEMENT ASSOCIATE left hip Hospitalists N83.202 Unspecified ovarian cyst, left side E11.9 Type 2 diabetes mellitus without complications K29.80 Duodenitis without bleeding G25.81 Restless legs syndrome Office Visit 07/20/2018 9:30a [facility] M25.552 Pain in Assoc,pc Shortle, CASH MANAGEMENT ASSOCIATE left hip Hospitalists 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 G25.81 Restless legs syndrome F41.9 Anxiety disorder, unspecified E87.1 Hypo-osmolality and hyponatremia Assessments Date Code Description Provider 01/01/2019 K82.4 Cholesterolosis of gallbladder Anatoly Solis MD, FACS 10/08/2018 G47.33 Obstructive sleep apnea (adult) Peggy Chong NP (pediatric) 10/08/2018 R09.02 Hypoxemia Peggy Chong NP 10/08/2018 E66.9 Obesity, unspecified Peggy Chong, MARGUERITE 10/08/2018 Z68.34 Body mass index (BMI) 34.0-34.9, adult Peggy Chong NP 09/19/2018 R06.83 Snoring Marcelino Murillo MD 09/19/2018 G56.03 Carpal tunnel syndrome, bilateral upper Marcelino Murillo MD limbs 09/19/2018 R41.3 Other amnesia Marcelino Murillo MD 09/19/2018 R53.83 Other fatigue Marcelino Murillo MD 09/18/2018 G47.33 Obstructive sleep apnea (adult) Lucía Rowe MD (pediatric) 08/27/2018 R06.83 Snoring Lucía Rowe MD 08/27/2018 R53.83 Other fatigue Lucía Rowe MD 07/24/2018 M25.552 Pain in left hip Margaret Anuja, CASH MANAGEMENT ASSOCIATE 07/24/2018 K29.80 Duodenitis without bleeding Margaret Anuja, CASH MANAGEMENT ASSOCIATE 07/24/2018 K70.30 Alcoholic cirrhosis of liver without Margaret Anuja, CASH MANAGEMENT ASSOCIATE ascites 07/24/2018 E11.9 Type 2 diabetes mellitus without Margaret Anuja, CASH MANAGEMENT ASSOCIATE complications 07/24/2018 G25.81 Restless legs syndrome Margaret Anjua, CASH MANAGEMENT ASSOCIATE 07/24/2018 E87.1 Hypo-osmolality and hyponatremia Margaret Anuja, CASH MANAGEMENT ASSOCIATE 07/23/2018 M25.552 Pain in left hip Margaret Anuja, CASH MANAGEMENT ASSOCIATE 07/23/2018 K29.80 Duodenitis without bleeding Margaret Anuja, CASH MANAGEMENT ASSOCIATE 07/23/2018 N83.202 Unspecified ovarian cyst, left side Margaret Anuja, CASH MANAGEMENT ASSOCIATE 07/23/2018 E11.9 Type 2 diabetes mellitus without Margaret Anuja, CASH MANAGEMENT ASSOCIATE complications 07/23/2018 E87.1 Hypo-osmolality and hyponatremia Margaret Anuja, CASH MANAGEMENT ASSOCIATE 07/23/2018 G25.81 Restless legs syndrome Margaret Anuja, CASH MANAGEMENT ASSOCIATE 07/22/2018 M25.552 Pain in left hip Margaret Anuja, CASH MANAGEMENT ASSOCIATE 07/22/2018 K29.80 Duodenitis without bleeding Margaret Anuja, CASH MANAGEMENT ASSOCIATE 07/22/2018 N83.202 Unspecified ovarian cyst, left side Margaret Anuja, CASH MANAGEMENT ASSOCIATE 07/22/2018 E11.9 Type 2 diabetes mellitus without Margaret Anuja, CASH MANAGEMENT ASSOCIATE complications 07/22/2018 G25.81 Restless legs syndrome Margaret Anuja, CASH MANAGEMENT ASSOCIATE 07/22/2018 F41.9 Anxiety disorder, unspecified Margaret Anuja, CASH MANAGEMENT ASSOCIATE 07/22/2018 E87.1 Hypo-osmolality and hyponatremia Margaret Anuja, CASH MANAGEMENT ASSOCIATE 07/21/2018 M25.552 Pain in left hip Margaret Anuja, CASH MANAGEMENT ASSOCIATE 07/21/2018 N83.202 Unspecified ovarian cyst, left side Margaret Anuja, CASH MANAGEMENT ASSOCIATE 07/21/2018 E11.9 Type 2 diabetes mellitus without Margaret Anuja, CASH MANAGEMENT ASSOCIATE complications 07/21/2018 K29.80 Duodenitis without bleeding Margaret Anuja, CASH MANAGEMENT ASSOCIATE 07/21/2018 G25.81 Restless legs syndrome Margaret Anuja, CASH MANAGEMENT ASSOCIATE 07/20/2018 M25.552 Pain in left hip Yaneli Shortle, CASH MANAGEMENT ASSOCIATE 07/20/2018 Z79.4 [facility] (current) use of insulin Yaneli Shortle, CASH MANAGEMENT ASSOCIATE 07/20/2018 G25.81 Restless legs syndrome Yaneli Shortle, CASH MANAGEMENT ASSOCIATE 07/20/2018 F41.9 Anxiety disorder, unspecified Yaneli Shortle, CASH MANAGEMENT ASSOCIATE 07/20/2018 E87.1 Hypo-osmolality and hyponatremia Yaneli Shortle, CASH MANAGEMENT ASSOCIATE Plan of Treatment Future Appointment(s):01/03/2019 10:00 am - Peggy Chong NP at [facility]02/27/2019 11:40 am - Last [place] M.D. at [facility]/30/2019 1:45 pm - Marcelino Murillo MD at [facility]01/01/2019 - Anatoly Solis MD, FACSK82.4 Cholesterolosis of gallbladderFollow up:None needed Functional Status Description No Information Available Mental Status Description No Information Available Referrals Description No Information Available
--- OUTSIDE RECORDS SUMMARY | 2019-01-12 01:13 | XMS REPORT | Continuity of Care Document ---
:1950 External Reference #:[id number] Author Name Peggy Chong NP (transmitted by agent of provider Lolita Wan) Address [address], [address] [place] [id number] Care Team Providers Name Role Phone Estrada Richmond M.D. 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 Delgado Schilling 24 units sq qd Nick Keita MD [...] Oxycodone HCL 1 tab po tid Estrada Richmond, 10mg prn for back M.D. Tablets pain [...] Oxygen Please use o2 at R09.02 Peggy Castillo, 10/08/2018 - Unknown Misc 2L/min at night CINDER WORKER via nasal cannula Immunizations Description No Information Available Vital Signs Date Vital Result Comment 01/03/2019 10:04am Height 58 inches 4'10" Weight 175.00 lb Heart Rate 100 /min BP Systolic Sitting 108 mmHg Lue regular cuff BP Diastolic Sitting 72 mmHg Lue regular cuff Respiratory Rate 12 /min O2 % BldC Oximetry 91 % BMI (Body Mass Index) 36.6 kg/m2 01/01/2019 11:11am Height 58 inches 4'10" Weight 176.00 lb Heart Rate 88 /min BP Systolic Sitting 112 mmHg BP Diastolic Sitting 68 mmHg Respiratory Rate 18 /min Body Temperature 97.1 F BMI (Body Mass Index) 36.8 kg/m2 Results Test Date Facility Test Result H/L Range Note Arterial Blood Gas 10/23/2018 [facility] PH Arterial 7.47 High 7.35-7.45 [address] [place] [address] [phone] Pco2 Arterial 32 mmHg Low 35-45 Po2 Arterial 78 mmHg Low 80-100 O2 Saturation Arterial 96.6 % Normal 94.0-98.0 Base Excess Arterial 0.3 mmol/L Normal -2.0-2.0 1 Hco3 Arterial 25.1 mmol/L Normal 19-31 1 Reference ranges based on room air. Procedures Date Code Description Status 09/18/2018 02837 Polysomnography Sleep Staging 4+ Parameters Completed Medical Devices Description No Information Available Encounters Type Date Location Provider Dx Diagnosis Office Visit 01/03/2019 [facility] G47.33 Obstructive sleep 10:00a [facility] apnea (adult) [facility] (pediatric) R09.02 Hypoxemia E66.9 Obesity, unspecified Office Visit 10/08/2018 [facility] G47.33 Obstructive sleep 10:30a [facility] Chong apnea (adult) [facility] (pediatric) R09.02 Hypoxemia E66.9 Obesity, unspecified Z68.34 Body mass index (BMI) 34.0-34.9, adult Office Visit 09/19/2018 2:30p [facility] Marcelino Murillo MD R06.83 [facility] G56.03 Carpal tunnel syndrome, bilateral upper limbs R41.3 Other amnesia R53.83 Other fatigue Office Visit 08/27/2018 1:00p [facility] Lucía Rowe R06.83 [facility] R53.83 Other fatigue Office Visit 07/24/2018 9:32a [facility] Margaret Anuja, M25.552 Pain in Assoc,pc CINDER WORKER left hip Hospitalists K29.80 Duodenitis without bleeding K70.30 Alcoholic cirrhosis of liver without ascites E11.9 Type 2 diabetes mellitus without complications G25.81 Restless legs syndrome E87.1 Hypo-osmolality and hyponatremia Office Visit 07/23/2018 9:32a [facility] Margaret Anuja, M25.552 Pain in Assoc,pc CINDER WORKER left hip Hospitalists K29.80 Duodenitis without bleeding N83.202 Unspecified ovarian cyst, left side E11.9 Type 2 diabetes mellitus without complications E87.1 Hypo-osmolality and hyponatremia G25.81 Restless legs syndrome Office Visit 07/22/2018 9:31a [facility] Margaret Anuja, M25.552 Pain in Assoc,pc CINDER WORKER left hip Hospitalists K29.80 Duodenitis without bleeding N83.202 Unspecified ovarian cyst, left side E11.9 Type 2 diabetes mellitus without complications G25.81 Restless legs syndrome F41.9 Anxiety disorder, unspecified E87.1 Hypo-osmolality and hyponatremia Office Visit 07/21/2018 9:31a [facility] Margaret Anuja, M25.552 Pain in Assoc,pc CINDER WORKER left hip Hospitalists N83.202 Unspecified ovarian cyst, left side E11.9 Type 2 diabetes mellitus without complications K29.80 Duodenitis without bleeding G25.81 Restless legs syndrome Office Visit 07/20/2018 9:30a [facility] M25.552 Pain in Assoc,pc [place], CINDER WORKER left hip Hospitalists Z79.4 detention (current) use of insulin G25.81 Restless legs syndrome F41.9 Anxiety disorder, unspecified E87.1 Hypo-osmolality and hyponatremia Assessments Date Code Description Provider 01/03/2019 G47.33 Obstructive sleep apnea (adult) Peggy Chong NP (pediatric) 01/03/2019 R09.02 Hypoxemia Peggy Chong NP 01/03/2019 E66.9 Obesity, unspecified Peggy Chong NP 01/01/2019 K82.4 Cholesterolosis of gallbladder Anatoly Solis MD, FACS 10/08/2018 G47.33 Obstructive sleep apnea (adult) Peggy Chong NP (pediatric) 10/08/2018 R09.02 Hypoxemia Peggy Chong NP 10/08/2018 E66.9 Obesity, unspecified Peggy Chong NP 10/08/2018 Z68.34 Body mass index (BMI) 34.0-34.9, [...] M25.552 Pain in left hip Margaret Anuja, CINDER WORKER 07/24/2018 K29.80 Duodenitis without bleeding Margaret Anuja, CINDER WORKER 07/24/2018 K70.30 Alcoholic cirrhosis of liver without Margaret Anuja, CINDER WORKER ascites 07/24/2018 E11.9 Type 2 diabetes mellitus without Margaret Anuja, CINDER WORKER complications 07/24/2018 G25.81 Restless legs syndrome Margaret Anuja, CINDER WORKER 07/24/2018 E87.1 Hypo-osmolality and hyponatremia Margaret Anuja, CINDER WORKER 07/23/2018 M25.552 Pain in left hip Margaret Anuja, CINDER WORKER 07/23/2018 K29.80 Duodenitis without bleeding Margaret Anuja, CINDER WORKER 07/23/2018 N83.202 Unspecified ovarian cyst, left side Margaert Anuja, CINDER WORKER 07/23/2018 E11.9 Type 2 diabetes mellitus without Margaret Anuja, CINDER WORKER complications 07/23/2018 E87.1 Hypo-osmolality and hyponatremia Margaret Anuja, CINDER WORKER 07/23/2018 G25.81 Restless legs syndrome Margaret Anuja, CINDER WORKER 07/22/2018 M25.552 Pain in left hip Margaret Anuja, CINDER WORKER 07/22/2018 K29.80 Duodenitis without bleeding Margaret Anuja, CINDER WORKER 07/22/2018 N83.202 Unspecified ovarian cyst, left side Margaret Anuaj, CINDER WORKER 07/22/2018 E11.9 Type 2 diabetes mellitus without Margaret Anuja, CINDER WORKER complications 07/22/2018 G25.81 Restless legs syndrome Margaret Anuja, CINDER WORKER 07/22/2018 F41.9 Anxiety disorder, unspecified Margaret Anuja, CINDER WORKER 07/22/2018 E87.1 Hypo-osmolality and hyponatremia Margaret Anuja, CINDER WORKER 07/21/2018 M25.552 Pain in left hip Margaret Anuja, CINDER WORKER 07/21/2018 N83.202 Unspecified ovarian cyst, left side Margaret Anuja, CINDER WORKER 07/21/2018 E11.9 Type 2 diabetes mellitus without Margaret Anuja, CINDER WORKER complications 07/21/2018 K29.80 Duodenitis without bleeding Margaret Anuja, CINDER WORKER 07/21/2018 G25.81 Restless legs syndrome Margaret Anuja, CINDER WORKER 07/20/2018 M25.552 Pain in left hip Yanelipark Okeefefela, CINDER WORKER 07/20/2018 Z79.4 detention (current) use of insulin Yanelicarlyn Rodgers, CINDER WORKER 07/20/2018 G25.81 Restless legs syndrome Yanelipark Okeefefela, CINDER WORKER 07/20/2018 F41.9 Anxiety disorder, unspecified Yanelipark Okeefefela, CINDER WORKER 07/20/2018 E87.1 Hypo-osmolality and hyponatremia Yaneli Rodgers NP Plan of Treatment Future Appointment(s):02/28/2019 11:00 am - Peggy Cohng NP at [facility]02/27/2019 11:40 am - Last [place] M.D. [facility]/30/2019 1:45 pm - Marcelino Murillo MD at [facility]01/03/2019 - Peggy Chong NPG47.33 Obstructive sleep apnea (adult) (pediatric)Follow up:6 weeksRecommendations:If you have difficulty with your equipment, or need to replace your mask or hoses, please contact your homecare agency. If you have any further questions, please call the [facility] at [phone] If you have any sleepiness while driving you MUST avoid operating a vehicle or machinery. If you feel tired while driving rod puller and take a nap or switch drivers. If you know you are sleepy and need to go somewhere, arrange for a ride or use public transportation. It is very important to not risk your safety or the safety of others.R09.02 [id number] Obesity, unspecified Functional Status Description No Information Available Mental Status Description No Information Available Referrals Description No Information Available
--- NOTE | 2019-01-12 01:25 | ED ---
Neurological HPI - HPI Summary HPI Summary: This pt is a 68 Y/O F brought in by EMS to [facility] for a SZ the pt sustained WAITER/WAITRESS FORMAL. The pt reports that she was just nervous and had a panic attack due to a hysterectomy on 01/15/19. The pt reports not sleeping well. The pt states that it has happened before when she is nervous. Her daughter states that her upper body was shaking for a few minutes before falling back asleep. Per daughter she states that she was asleep since 2100 and woke up around 2200 shaking. This happened a few times tonight and attempted to stand up. The pt was sleeping in the recliner which is typical of the pt. Her daughter states that this occurred 3 times before coming to [facility]. The pt reports that she was conscious during the episodes. She has a PMHx of Cirrhosis, DM type 2, HTN, and GERD. - History of Current Complaint Chief Complaint: EDGeneral Stated Complaint: TWITCHING PER EMS Hx Obtained From: Patient, Family/Malter Operator - daughter Onset/Duration: Sudden Onset, Resolved Timing: Intermittent Episodes Lasting: - minutes Pain Intensity: 0 Pain Scale Used: 0-10 Numeric Syncope Location: Partial Extremities - Upper extremities Seizure Character: Partial (Specify) - Daughter states that when the pt wakes up she has shaking of her upper body Aggravating: Sleep Deprivation Alleviating: Spontanious Resolution Associated Signs and Symptoms: Positive: Negative - fevers, chills, and sore throats, Seizure. Negative: Headache, Nausea/Vomiting, Chest Pain, Shortness of Breath - Additional Pertinent History Primary Care Physician: [id number] - Allergy/Home Medications Allergies/Adverse Reactions: Allergies Allergy/AdvReac Type Severity Reaction Status Date / Time morphine Allergy Severe Anaphylatic Verified 01/12/19 15:01 Shock vancomycin Allergy Intermediate Rash And Verified 01/12/19 15:01 Itching meloxicam Allergy Rash Verified 01/12/19 15:01 Penicillins Allergy Swelling Verified 01/12/19 15:01 sulfamethoxazole Allergy Unknown Verified 01/12/19 15:01 [From Bactrim] Reaction Details trimethoprim [From Bactrim] Allergy Unknown Verified 01/12/19 15:01 Reaction Details aspirin AdvReac CIRRHOSIS Verified 01/12/19 15:01 erythromycin base AdvReac Vomiting Verified 01/12/19 15:01 NSAIDS (Non-Steroidal AdvReac CIRRHOSIS Verified 01/12/19 15:01 Anti-Inflamma Sulfa (Sulfonamide AdvReac GI Upset Verified 01/12/19 15:01 Antibiotics) PMH/Surg Hx/FS Hx/Imm Hx Previously Healthy: Yes Endocrine/Hematology History: Reports: Hx Diabetes - DM II Cardiovascular History: Reports: Hx Hypertension Denies: Hx Pacemaker/ICD, Other Cardiovascular Problems/Disorders Respiratory History: Denies: Hx Chronic Obstructive Pulmonary Disease (COPD) GI History: Reports: 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, Hx Gastroesophageal Reflux Disease, Other GI Disorders - Esophageal varices History: Denies: Hx Renal Disease Musculoskeletal History: Reports: Hx Arthritis, Hx Back Problems - lumbar fusion in 1990, Hx Orthopedic Injury - 04/18/18: Fx three ribs from a fall, Other Musculoskeletal History - Restless leg syndrome Denies: Hx Osteoporosis Sensory History: Reports: Hx Cataracts - bilat, Hx Contacts or Glasses Denies: Hx Hearing Aid Opthamlomology History: Reports: Hx Cataracts - bilat, Hx Contacts or Glasses Neurological History: Reports: Hx Transient Ischemic Attacks (TIA) Psychiatric History: Reports: Hx Anxiety, Hx Depression Denies: Hx Panic Disorder - Cancer History Hx Chemotherapy: No Hx Radiation Therapy: No - Surgical History Surgery Procedure, Year, and Place: LUMBAR SPINAL FUSION 1990, tonsillectomy. TUBAL LIGATION. WISDOM TEETH. [facility] CATARACTS Hx Anesthesia Reactions: No Infectious Disease History: No Infectious Disease History: Denies: Hx of Known/Suspected MRSA, Traveled Outside the [place] in Last 30 Days - Family History Known Family History: Positive: Diabetes - Mother - Social History Alcohol Use: None Alcohol Amount: Hx ETOH abuse, none currently Hx Substance Use: No Substance Use Type: Reports: None Hx Tobacco Use: Yes - not currently Smoking Status (MU): Former Smoker Type: Cigarettes Amount Used/How Often: 5 CIGS/DAY Length of Time of Smoking/Using Tobacco: 30 years Have You Smoked in the Last Year: Yes Review of Systems Negative: Fever, Chills Negative: Sore Throat Negative: Chest Pain Negative: Shortness Of Breath Negative: Vomiting, Nausea Neurological: Other - 3 episodes of seizures per pt's daughter Negative: Headache All Other Systems Reviewed And Are Negative: Yes Physical Exam - Summary Physical Exam Summary: Appearance: Well-appearing, Well-nourished, lying in bed comfortably, Somnolent woman, aroused to commands and answers questions adequately Skin: Warm, dry, no obvious rash Eyes: sclera anicteric, no conjunctival pallor ENT: mucous membranes moist, pharynx appears normal Neck: Supple, nontender Respiratory: Clear to auscultation, no signs of respiratory distress Cardiovascular: Normal S1, S2. No murmurs. Normal distal pulses in tibial and radial bilaterally. Abdomen: Soft, nontender, normal active bowel sounds present Musculoskeletal: Normal, Strength/ROM Intact, Signs of peripheral arterial disease with signs of falls on her LE, signs of edema on her legs. Neurological: A&Ox3, awake and alert, mentation is normal, speech is fluent and appropriate Psychiatric: affect is normal, does not appear anxious or depressed Triage Information Reviewed: Yes Vital Signs On Initial Exam: Initial Vitals Temp Pulse Resp BP Pulse Ox 98.0 F 102 24 118/57 93 01/12/19 01:06 01/12/19 01:06 01/12/19 01:06 01/12/19 01:06 01/12/19 01:06 Vital Signs Reviewed: Yes Diagnostics - Vital Signs Vital Signs Temp Pulse Resp BP Pulse Ox 01/12/19 01:06 98.0 F 102 24 118/57 93 - Laboratory Result Diagrams: 01/12/19 01:56 01/12/19 01:56 Lab Statement: Any lab studies that have been ordered have been reviewed, and results considered in the medical decision making process. Re-Evaluation - Re-Evaluation First Eval Re-Evaluation Time: 02:59 Comment: CTSP by dtr with another similar spell. Pt is sitting upright in bed, awake and interactive. She has some tremulousness of the arms but no seizure activity. Course/Dx - Course Course Of Treatment: This pt is a 68 Y/O F brought in by EMS to [facility] for a SZ the pt sustained WAITER/WAITRESS FORMAL. The pt reports that she was just nervous and had a panic attack due to a hysterectomy on 01/15/19. The pt reports not sleeping well. The pt states that it has happened before when she is nervous. Her daughter states that her upper body was shaking for a few minutes before falling back asleep. Her PE found that she is somnolent but arroused to commands and answers questions adequetly. She has LE edema and evidence for peripheal arterial disease and falls. She was re-evaluated during one of her episodes was was concluded to be anxiety. She will be discharged home with a Dx of anxiety. - Diagnoses Provider Diagnoses: Anxiety Discharge ED - Sign-Out/Discharge Documenting (check all that apply): Patient Departure Patient Received Moderate/Deep Sedation with Procedure: No - Discharge Plan Condition: Good Disposition: HOME Prescriptions: LORazepam TAB(*) [Ativan 1 MG TAB (*)] 1 mg PO TID PRN #15 tab MDD 3 PRN Reason: Anxiety Patient Education Materials: Anxiety (ED) Referrals: Estrada Richmond MD [Primary Care Provider] - 3 Days - Billing Disposition and Condition Condition: GOOD Disposition: Home - Attestation Statements Document Initiated by Scribe: Yes Documenting Scribe: Michael Leblanc Provider For Whom Christ is Documenting (Include Credential): Jose Back MD Scribe Attestation: Michael Santoro, scribed for Jose Back MD on 01/12/19 at 1843. Scribe Documentation Reviewed: Yes Provider Attestation: The documentation as recorded by the Michael senior accurately reflects the service I personally performed and the decisions made by Jose gottlieb MD Status of Scribe Document: Viewed
[2019-01-12 02:08] LABS: ABS Basophils 0.1 10^3/ul (0-0.2); ABS Eosinophils 0.1 10^3/ul (0-0.6); ABS Lymphocytes 0.7 10^3/ul (1.0-4.8); ABS Monocytes 0.8 10^3/ul (0-0.8); ABS Neutrophils 4.5 10^3/ul (1.5-7.7); Eosinophil % 2.4 %; Hematocrit 33 % (35-47); Hemoglobin 10.9 g/dL (12.0-16.0); Lymphocyte % 10.6 %; Mean Corpuscular HGB Conc 34 g/dL (31-36); Mean Corpuscular Hemoglobin 31 pg (27-31); Mean Corpuscular Volume 93 fL (80-97); Mean Platelet Volume 7.8 fL (7.4-10.4); Platelet Count 121 10^3/uL (150-450); Red Blood Count 3.51 10^6 /uL (3.70-4.87); Red Cell Distribution Width 19 % (10-15); White Blood Count 6.2 10^3/uL (3.5-10.8)
[2019-01-12 02:19] LABS: ALT 24 U/L (7-52); AST 32 U/L (13-39); Albumin/Globulin Ratio 0.7 (1-3); Alkaline Phosphatase 163 U/L (34-104); Anion Gap 7 mmol/L (2-11); BUN/Creatinine Ratio 25.2 (8-20); Blood Urea Nitrogen 26 mg/dL (6-24); CO2 Carbon Dioxide 20 mmol/L (22-32); Calcium 7.8 mg/dL (8.6-10.3); Chloride 107 mmol/L (101-111); EGFR African American 64.9 (>60); EGFR Non-African American 53.6 (>60); Globulin 4.5 g/dL (2-4); Glucose 221 mg/dL (70-100); Magnesium 2.5 mg/dL (1.9-2.7); Potassium 3.9 mmol/L (3.5-5.0); Sodium 134 mmol/L (135-145); Total Protein 7.5 g/dL (6.4-8.9)
[2019-01-12 02:28] LABS: Alcohol < 10 mg/dL (<10)
[2019-01-12] MEDS ORDERED: LORazepam TAB(*) 1 MG PO ONE (02:59)
[2019-01-12 03:14] VITALS: BP 126/75
== END 2019-01-12 03:14 | disposition home or self-care (01) ==
LOC: ED 01:01
DX: F41.9 Anxiety disorder, unspecified (principal); R25.3 Fasciculation; E11.9 Type 2 diabetes mellitus without complications; I10 Essential (primary) hypertension; K70.30 Alcoholic cirrhosis of liver without ascites; Z88.6 Allergy status to analgesic agent; Z88.1 Allergy status to other antibiotic agents; Z88.5 Allergy status to narcotic agent; Z88.0 Allergy status to penicillin; Z88.2 Allergy status to sulfonamides; Z88.8 Allergy status to other drugs, medicaments and biological substances; Z87.891 Personal history of nicotine dependence
CPT/HCPCS: 36415; 80053; 80320; 83605; 83735; 85025; 99284; A9270-GY; G0480

== ENCOUNTER 2019-01-12 14:49 | Emergency (ER) | payer MEDICARE, OTHER ==
[2019-01-12] MEDS ORDERED: Naloxone* 0.4 MG/ML 1 ML VIAL IV PUSH ONE (15:32)
[2019-01-12] MEDS ORDERED: Naloxone* 0.4 MG/ML 1 ML VIAL ONE (15:38)
--- NOTE | 2019-01-12 15:54 | ED ---
Substance Abuse/Use - HPI Summary HPI Summary: This patient is a 68 year old F presenting to [facility] [place] accompanied by daughter with a chief complaint of increased drowsiness since 2 days ago, 01/10/19. Symptoms aggravated by nothing. Symptoms alleviated by nothing. Daughter reports pt woke up from deep sleep at 1145 today and started sporadic moving her upper body described as jerky twitches (which has never happened before) and when spoken to would look at the speaker and then go right back to sleep. Daughter reports that she could not stand up without having to bend at the waist like shes about to fall over. Patient denies nausea, current diarrhea, vomiting, urinary symptoms, and cough. Daughter reports pt came to ED last night where she was given anxiety medications. Daughter reports that 2 weeks ago they found out that pt had cysts on her ovaries where cancer was mentioned and pt has a scheduled hysterectomy next 01/15/19. Daughter reports pt got pretested last week. Daughter reports pt takes care of medications herself but thinks that maybe the anxiety medication from last night did not work well with the oxycodone she has been taking for years regularly. Daughter reports pt took anxiety medications at 0300 today, oxycodone at 0500, anxiety medications again at 1100, Baclofen at 1300 for her muscle spasms in her hips and thighs, and oxycodone at 1400. Pt also has a fentanyl patch that she replaces every 3 days. Pt reports she started feeling wobbly and tired 2 days ago. Pt reports eating cheese, fruit, dinner, tuna fish sandwich. Pt reports lower extremity pain. Daughter reports pt had diarrhea night into Monday morning and urinated 4 x today. Home Medications Medication Instructions Recorded Confirmed Type Lactulose* 30 ml PO BEDTIME 05/05/14 01/12/19 History Potassium Chlor TAB* [Potassium 20 meq PO TID 07/11/14 01/12/19 History Chlor TAB 20 MEQ*] Vitamin E CAP* 200 unit PO DAILY 12/23/15 01/12/19 History Cholecalciferol TAB* [Vitamin D 2,000 units PO EVERY OTHER DAY 01/10/16 History TAB*] Ferrous Sulfate TAB* 325 mg PO DAILY 02/08/16 01/12/19 History glipiZIDE TAB* [Glucotrol TAB*] 5 mg PO BID 04/05/17 01/12/19 History Alendronate (NF) [Fosamax (NF)] 70 mg PO WEEKLY 06/20/17 01/12/19 History Spironolactone [Aldactone 100 MG-] 300 mg PO QAM 06/20/17 01/12/19 History Zinc 50 mg PO BID 08/01/17 01/12/19 History Pramipexole TAB* [Mirapex TAB*] 0.25 mg PO BEDTIME 11/23/17 01/12/19 History Magnesium Chloride EC TAB* [Slow 71.5 - 119 mg PO DAILY 02/19/18 01/12/19 History Mag EC TAB*] Mirtazapine TAB* [Remeron TAB*] 30 mg PO BEDTIME 02/19/18 01/12/19 History Acarbose(NF) 50 mg PO TID 04/18/18 01/12/19 History Linagliptin (NF) [Tradjenta (NF)] 5 mg PO DAILY 07/20/18 01/12/19 History Urea [Ureacin-20] 20 % TOPICAL EVERY OTHER DAY 07/20/18 01/12/19 History Insulin Glargine,Hum.rec.anlog 24 unit SC DAILY 10/05/18 01/12/19 History [Basaglar Kwikpen U-100] Ammonium Lactate 12% [Lac-Hydrin 1 applic TOPICAL DAILY PRN 12/04/18 01/12/19 History 12 %] C,E,Zinc,Copper 11/Dtqjp9p/Lut 1 cap PO DAILY 12/04/18 01/12/19 History [Ocuvite Adult 50 Plus Softgel] Calcium Carbonate [Calcium] 600 mg PO BID 12/04/18 01/12/19 History DOXYcycline CAP(*) [DOXYcycline 100 mg PO BID 12/04/18 01/12/19 History 100MG CAP(*)] Furosemide TAB* [Lasix TAB*] 120 mg PO DAILY 12/04/18 01/12/19 History Gabapentin CAP(*) [Neurontin 300 600 mg PO QID 12/04/18 01/12/19 History CAP(*)] PARoxetine HCL TAB* [Paxil TAB*] 30 mg PO DAILY 12/04/18 01/12/19 History Pantoprazole TAB (NF) [Protonix 20 mg PO DAILY 12/04/18 01/12/19 History TAB (NF)] fentaNYL PATCH 12 MCG/HR * 12 mcg TRANSDERM Q72H 12/04/18 01/12/19 History [Duragesic Patch 12 Mcg/Hr *] oxyCODONE TAB* [Roxycodone TAB 5 10 mg PO .Q4-6H PRN 12/04/18 01/12/19 History mg*] LORazepam TAB(*) [Ativan 1 MG TAB 1 mg PO TID PRN #15 tab MDD 3 01/12/19 Rx (*)] - History Of Current Complaint Chief Complaint: EDOverdose Stated Complaint: UNRESPONSIVE Time Seen by Provider: 01/12/19 15:26 Hx Obtained From: Patient Character: Lethargic Aggravating Factor(s): Nothing Alleviating Factor(s): Nothing Associated Signs And Symptoms: Negative - denies nausea, current diarrhea, vomiting, and cough, Other: - twitching - Allergies/Home Medications Allergies/Adverse Reactions: Allergies Allergy/AdvReac Type Severity Reaction Status Date / Time morphine Allergy Severe Anaphylatic Verified 01/12/19 15:01 Shock vancomycin Allergy Intermediate Rash And Verified 01/12/19 15:01 Itching meloxicam Allergy Rash Verified 01/12/19 15:01 Penicillins Allergy Swelling Verified 01/12/19 15:01 sulfamethoxazole Allergy Unknown Verified 01/12/19 15:01 [From Bactrim] Reaction Details trimethoprim [From Bactrim] Allergy Unknown Verified 01/12/19 15:01 Reaction Details aspirin AdvReac CIRRHOSIS Verified 01/12/19 15:01 erythromycin base AdvReac Vomiting Verified 01/12/19 15:01 NSAIDS (Non-Steroidal AdvReac CIRRHOSIS Verified 01/12/19 15:01 Anti-Inflamma Sulfa (Sulfonamide AdvReac GI Upset Verified 01/12/19 15:01 Antibiotics) PMH/Surg Hx/FS Hx/Imm Hx Endocrine/Hematology History: Reports: Hx Diabetes - DM II Cardiovascular History: Reports: Hx Hypertension Denies: Hx Pacemaker/ICD, Other Cardiovascular Problems/Disorders Respiratory History: Denies: Hx Chronic Obstructive Pulmonary Disease (COPD) GI History: Reports: 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, Hx Gastroesophageal Reflux Disease, Other GI Disorders - Esophageal varices History: Denies: Hx Renal Disease Musculoskeletal History: Reports: Hx Arthritis, Hx Back Problems - lumbar fusion in 1990, Hx Orthopedic Injury - 04/18/18: Fx three ribs from a fall, Other Musculoskeletal History - Restless leg syndrome Denies: Hx Osteoporosis Sensory History: Reports: Hx Cataracts - bilat, Hx Contacts or Glasses Denies: Hx Hearing Aid Opthamlomology History: Reports: Hx Cataracts - bilat, Hx Contacts or Glasses Neurological History: Reports: Hx Transient Ischemic Attacks (TIA) Psychiatric History: Reports: Hx Anxiety, Hx Depression Denies: Hx Panic Disorder - Cancer History Hx Chemotherapy: No Hx Radiation Therapy: No - Surgical History Surgery Procedure, Year, and Place: LUMBAR SPINAL FUSION 1990, tonsillectomy. TUBAL LIGATION. WISDOM TEETH. DOLORES CATARACTS Hx Anesthesia Reactions: No Infectious Disease History: No Infectious Disease History: Denies: Hx of Known/Suspected MRSA, Traveled Outside the [place] in Last 30 Days - Family History Known Family History: Positive: Diabetes - Mother - Social History Alcohol Use: None Alcohol Amount: Hx ETOH abuse, none currently Hx Substance Use: No Substance Use Type: Reports: None Hx Tobacco Use: Yes - not currently Smoking Status (MU): Former Smoker Type: Cigarettes Amount Used/How Often: 5 CIGS/DAY Length of Time of Smoking/Using Tobacco: 30 years Have You Smoked in the Last Year: Yes Review of Systems Positive: Other - drowsy Negative: Cough Negative: Vomiting, Diarrhea, Nausea Positive: Other - lower extremity pain, twitchy All Other Systems Reviewed And Are Negative: Yes Physical Exam - Summary Physical Exam Summary: General: Obese, lethargic, female. No acute distress. HEENT: Normocephalic, Atraumatic. Eyes: Conjuctiva normal, PERRL. Ears: TMs within normal limits. Nares: (-) discharge, (-) erythema. Oropharynx: Clear, mucous membranes moist, (-) exudates. Neck: Soft, FROM, (-) lymphadenopathy, (-) thyromegaly, (-) JVD. Cardiovascular: Normal sinus rhythm, (-) murmur. Lungs: Clear to auscultation bilaterally (-) wheezes, (-) rales, (-) rhonchi. Abdomen: Soft, non-tender, non-distended, (-) organomegaly, normal bowel sounds. Back: (-) CVA tenderness Extremities: No edema. Skin: Warm, dry, (-) rash. Neuro: Alert and oriented x3, no focal deficits. Psychiatric: Mood normal, affect normal. Triage Information Reviewed: Yes Vital Signs On Initial Exam: Initial Vitals Temp Pulse Resp BP Pulse Ox 100.1 F 92 12 83/46 90 01/12/19 14:56 01/12/19 14:56 01/12/19 14:56 01/12/19 14:56 01/12/19 14:56 Vital Signs Reviewed: Yes Diagnostics - Vital Signs Vital Signs Temp Pulse Resp BP Pulse Ox 01/12/19 15:25 19 01/12/19 14:56 100.1 F 92 12 83/46 90 - Laboratory Result Diagrams: 01/12/19 16:42 01/12/19 16:42 Lab Statement: Any lab studies that have been ordered have been reviewed, and results considered in the medical decision making process. - Radiology Chest X-Ray Radiology Interpretation Completed By: Radiologist Summary of Radiographic Findings: Per radiologist,. 1. LEFT GREATER THAN RIGHT BIBASILAR AIRSPACE OPACIFICATION. ASPIRATION PNEUMONITIS AND. ATELECTASIS CAN BOTH HAVE THESE IMAGING FEATURES. ED physician has viewed this imaging report. - EKG 1636 Cardiac Rate: NL - 100 BPM Summary of EKG Findings: EKG at 1636 reveals normal sinus rhythm with rate of 100 BPM, no acute changes, no ischemic changes, non-STEMI. This EKG was reviewed and interpreted by Dr. Michaels. Re-Evaluation - Re-Evaluation First Eval Re-Evaluation Time: 17:22 Comment: Pt at bedside awake and alert, compaining of her feet being cold. Second Eval Re-Evaluation Time: 18:07 Comment: Pt feeling much better and requesting to discharge. Course/Dx - Course Assessment/Plan: This patient is a 68 year old F presenting to [facility] accompanied by daughter with a chief complaint of increased drowsiness since 2 days ago, 01/10/19. Daughter reports pt woke up from deep sleep at 1145 today and started sporadic moving her upper body and when spoken to would look at the speaker and then go right back to sleep. Daughter reports that she could not stand up without having to bend at the waist like shes about to fall over. Patient denies nausea, current diarrhea, vomiting, urinary symptoms, and cough. Daughter reports pt came to ED last night where she was given anxiety medications. Daughter reports that 2 weeks ago they found out that pt had cysts on her ovaries. Daughter reports pt had diarrhea night into Monday morning and urinated 4 x today. Pt had significant response after Narcan. Was able to answer questions appropriately complained of being cold and leg pain. Mildly agitated. Chronic venous stasis changes in her lower extremities bilaterally. Test results with no significant abnormalities expect for RBC 3.63 L, Hgb 11.3 L, Hct 34 L, RDW 19 H, Plt Count 130 L, INR 1.37 H, Carbon Dioxide 20 L, BUN 25 H, BUN/Creatinine Ratio 28.4 H, Calcium 8.0 L, Total Bilirubin 1.20 H, Alkaline Phosphatase 154 H, Albumin 3.1 L, Globulin 4.6 H, Albumin/Globulin Ratio 0.7 L, Lactic Acid 2.7 H. Physical Exam Findings reveal no abnormalities. In the ED course the patient was given Naloxone Hcl 0.4 mg, saline.EKG at 1636 reveals normal sinus rhythm with rate of 100 BPM, no acute changes, no ischemic changes, non-STEMI. This EKG was reviewed and interpreted by Dr. Michaels. Chest X-Ray reveals 1. LEFT GREATER THAN RIGHT BIBASILAR AIRSPACE OPACIFICATION. ASPIRATION PNEUMONITIS AND. ATELECTASIS CAN BOTH HAVE THESE IMAGING FEATURES. Patient will be discharged and follow up from Dr. Richmond. The patient is agreeable with this plan. - Diagnoses Provider Diagnoses: Medication reaction Discharge ED - Sign-Out/Discharge Documenting (check all that apply): Patient Departure - discharge Patient Received Moderate/Deep Sedation with Procedure: No - Discharge Plan Condition: Stable Disposition: HOME Patient Education Materials: Medication Safety for Older Adults (ED) Referrals: Estrada Richmond MD [Primary Care Provider] - 3 Days Additional Instructions: Please follow up with your primary care physician within three days. Please return to ED for any new or worsening symptoms. - Billing Disposition and Condition Condition: STABLE Disposition: Home - Attestation Statements Document Initiated by Scribe: Yes Documenting Scribe: Lucina Murray Provider For Whom Scribe is Documenting (Include Credential): Dr. Trish Michaels MD Scribe Attestation: Lucina Santoro, scribed for Dr. Trish Michaels MD on 01/12/19 at 2021. Scribe Documentation Reviewed: Yes Provider Attestation: The documentation as recorded by the scribe, Lucina Murray accurately reflects the service I personally performed and the decisions made by me, Dr. Trish Michaels MD Status of Scribe Document: Viewed
[2019-01-12] MEDS ORDERED: NS 0.9% 1000 ML** 1,000 ML IV ONE (16:11)
[2019-01-12 16:59] LABS: INR 1.37 (0.82-1.09)
[2019-01-12 17:00] LABS: ABS Basophils 0.1 10^3/ul (0-0.2); ABS Eosinophils 0.2 10^3/ul (0-0.6); ABS Monocytes 0.6 10^3/ul (0-0.8); ABS Neutrophils 3.8 10^3/ul (1.5-7.7); Eosinophil % 3.7 %; Hematocrit 34 % (35-47); Hemoglobin 11.3 g/dL (12.0-16.0); Lymphocyte % 16.9 %; Mean Corpuscular HGB Conc 34 g/dL (31-36); Mean Corpuscular Hemoglobin 31 pg (27-31); Mean Corpuscular Volume 93 fL (80-97); Mean Platelet Volume 7.6 fL (7.4-10.4); Platelet Count 130 10^3/uL (150-450); Red Blood Count 3.63 10^6 /uL (3.70-4.87); Red Cell Distribution Width 19 % (10-15); White Blood Count 5.7 10^3/uL (3.5-10.8)
[2019-01-12 17:12] LABS: ALT 25 U/L (7-52); AST 34 U/L (13-39); Albumin 3.1 g/dL (3.2-5.2); Albumin/Globulin Ratio 0.7 (1-3); Alkaline Phosphatase 154 U/L (34-104); Anion Gap 7 mmol/L (2-11); BUN/Creatinine Ratio 28.4 (8-20); Blood Urea Nitrogen 25 mg/dL (6-24); CO2 Carbon Dioxide 20 mmol/L (22-32); Chloride 110 mmol/L (101-111); EGFR African American 77.8 (>60); EGFR Non-African American 64.3 (>60); Globulin 4.6 g/dL (2-4); Glucose 81 mg/dL (70-100); Potassium 4.3 mmol/L (3.5-5.0); Sodium 137 mmol/L (135-145); Total Protein 7.7 g/dL (6.4-8.9)
[2019-01-12 17:13] LABS: Troponin I 0.01 ng/mL (<0.04)
[2019-01-12 17:34] LABS: Acetaminophen < 15 mcg/mL; Alcohol < 10 mg/dL (<10)
[2019-01-12 17:47] LABS: TSH (Thyroid Stimulating Horm) 2.77 mcIU/mL (0.34-5.60)
[2019-01-12 19:07] VITALS: BP 105/84
== END 2019-01-12 18:50 | disposition home or self-care (01) ==
LOC: ED 14:49
DX: T50.905A Adverse effect of unspecified drugs, medicaments and biological substances, initial encounter (principal); Y92.9 Unspecified place or not applicable; E11.9 Type 2 diabetes mellitus without complications; I10 Essential (primary) hypertension; K70.30 Alcoholic cirrhosis of liver without ascites; K21.9 Gastro-esophageal reflux disease without esophagitis; F41.9 Anxiety disorder, unspecified; F32.9 Major depressive disorder, single episode, unspecified; Z86.73 Personal history of transient ischemic attack (TIA), and cerebral infarction without residual deficits; Z98.51 Tubal ligation status; Z87.891 Personal history of nicotine dependence; Z88.6 Allergy status to analgesic agent; Z88.1 Allergy status to other antibiotic agents; Z88.5 Allergy status to narcotic agent; Z88.0 Allergy status to penicillin; Z88.2 Allergy status to sulfonamides; Z79.4 Long term (current) use of insulin; Z79.899 Other long term (current) drug therapy
CPT/HCPCS: 36415; 71045; 80053; 80320; 80329; 83605; 84443; 84484; 85025; 85610; 87040; 93005; 96361; 96374; 99283; G0480; J2310

== ENCOUNTER 2019-02-17 22:07 | Observation (INO) | payer MEDICARE, OTHER ==
--- OUTSIDE RECORDS SUMMARY | 2019-02-17 22:36 | XMS REPORT | Continuity of Care Document ---
:1950 External Reference #:[id number] Author Name Denise Schmitt O.D. (transmitted by agent of provider Radha Herrera) Address [address] [place] [address] Care Team Providers Name Role Phone Deonna Barnes M.D. - Family Care Team Information Training Personnel Supervisor [phone] Medicine Estrada Richmond M.D. - Family Medicine Care Team Information Training Personnel Supervisor [phone] Problems Active Problems Provider Date Anxiety Denise Schmitt O.D. Onset: 2014 H/O: depression Denise Schmitt O.D. Onset: 2014 H/O Malignant melanoma Denise Schmitt O.D. Onset: 2014 Mixed hyperlipidemia Onset: Liver function tests abnormal Onset: Vitamin D deficiency Onset: Disorder of sebaceous gland Onset: Tobacco user Onset: Anxiety state Onset: Nonexudative age-related macular degeneration Denise Schmitt O.D. Onset: Nuclear senile cataract Denise Schmitt O.D. Onset: 12/19/2014 Presbyopia Denise Schmitt O.D. Onset: 12/19/2014 Pseudophakia Donny Mccarthy M.D. Onset: 01/15/2015 Vitreous degeneration Denise Schmitt O.D. Onset: 12/21/2015 Type 2 diabetes mellitus Onset: Bilateral age-related nonexudative macular Denise Schmitt O.D. Onset: 2017 degeneration Myopia Denise Schmitt O.D. Onset: 12/27/2017 Regular astigmatism Denise Schmitt O.D. Onset: 12/27/2017 Other secondary cataract, left eye Denise Schmitt O.D. Onset: 02/06/2019 Social History Type Date Description Comments Sex Unknown ETOH Use Denies alcohol use Tobacco Use Start: Unknown Light tobacco smoker (10 or fewer cigarettes/day) Recreational Drug Use Denies Drug Use Smoking Status Reviewed: 02/06/19 Light tobacco smoker (10 or fewer cigarettes/day) Allergies, Adverse Reactions, Alerts Active Allergies Reaction Severity Comments Date Sulfa Antibiotics 2014 Erythromycin 2014 Morphine 2014 Penicillin 2014 Aspirin 12/22/2014 Tylenol 12/22/2014 Ibuprofen 12/22/2014 Medications Active Medications SIG Qnty Indications Ordering Provider Date Ocuvite Adult 50+ 1 by mouth Denise Schmitt, 12/25/2017 Capsules every day O.DVarsha Klor-Con 10 Unknown 10Meq Tablets ER Cefuroxime Axetil Unknown 250mg Tablets Basaglar Kwikpen Unknown 100Unit/ML Solution Pen-Inject Furosemide Unknown 20mg Tablets Spironolactone Unknown 25mg Tablets Lactulose Unknown 10GM/15ML Solution Oxycodone HCL Unknown 10mg Tablets Fentanyl Unknown 12mcg/HR Patches 72HR Vitamin D3 Unknown 1000Unit Capsules Pantoprazole Sodium every day Unknown 40mg Solution Rec Mirtazapine Unknown 30mg Tablets Ferrous Sulfate Unknown 325(65Fe) mg Tablets Vitamin E Unknown 100Unit Capsules Neurontin Unknown 300mg Capsules Zinc Unknown 50mg Tablets Calcium 600 Unknown 600mg Tablets Alendronate Sodium Unknown 70mg Tablets Triamcinolone Acetonide Unknown Dental Paste 0.1% Paste Glipizide Unknown 5mg Tablets Ammonium Lactate Unknown 12% Lotion Tradjenta Unknown 5mg Tablets Paroxetine HCL Unknown 30mg Tablets Pramipexole Unknown Dihydrochloride 0.125mg Tablets Immunizations Description No Information Available Vital Signs Description No Information Available Results Description No Information Available Procedures Description No Information Available Medical Devices Description No Information Available Encounters Description No Information Available Assessments Date Code Description Provider 02/06/2019 H26.492 Other secondary cataract, left eye Denise Schmitt O.D. 02/06/2019 H35.3131 Nonexudative age-related macular Denise Schmitt O.D. degeneration, bilateral, ea 02/06/2019 H52.13 Myopia, bilateral Denise Schmitt O.D. 02/06/2019 H52.223 Regular astigmatism, bilateral Denise Schmitt O.D. 02/06/2019 E11.9 Type 2 diabetes mellitus without Denise Schmitt O.D. complications Plan of Treatment Future Appointment(s):02/11/2020 9:00 am - Denise Schmitt O.D. at [facility]/27/2018 8:30 am - Donny Mccarthy M.D. at [facility] - Denise Schmitt O.D.H26.492 Other secondary cataract, left eyeComments:There is clouding in the sac that holds your artificial lens in your left eye. We will schedule you an appointment for the YAG Capsulotomy laser with Dr. Mccarthy. Please read the pamphlet that has been printed out for you. We recommend you bring someone to drive you home.Follow up:Schedule eval for YAG OSH35.3131 Nonexudative age-related macular degeneration, bilateral, eaComments:You have Macular Degeneration. Please take the AREDs 2 vitamin and check the amsler grid with each eye individually at least twice a week to closely monitor for vision change. If you notice a change invision, please call the office.H52.13 Myopia, bilateralComments:You have Myopia, or near sightedness. I have given you a prescription for glasses.H52.223 Regular astigmatism, bilateralComments:Astigmatism is a common vision condition that happens when a person's cornea is not symmetrical. Dr. Schmitt has given you a prescription to correct for this.E11.9 Type 2 diabetes mellitus without complicationsComments:You have diabetes. I do not detect any changes in both of your retinas from diabetes at this time. Proper control of your diabetes is important for the health of your eyes. Changes in your eyes from diabetes can happen without symptoms, so it is important that you have your eyes examined. Functional Status Description No Information Available Mental Status Description No Information Available Referrals Description No Information Available
[2019-02-17 22:53] LABS: ABS Basophils 0.1 10^3/ul (0-0.2); ABS Eosinophils 0.1 10^3/ul (0-0.6); ABS Lymphocytes 0.8 10^3/ul (1.0-4.8); ABS Monocytes 0.8 10^3/ul (0-0.8); ABS Neutrophils 4.3 10^3/ul (1.5-7.7); Eosinophil % 2.4 %; Hematocrit 35 % (35-47); Hemoglobin 11.5 g/dL (12.0-16.0); Lymphocyte % 12.7 %; Mean Corpuscular HGB Conc 33 g/dL (31-36); Mean Corpuscular Hemoglobin 31 pg (27-31); Mean Corpuscular Volume 94 fL (80-97); Mean Platelet Volume 7.6 fL (7.4-10.4); Platelet Count 167 10^3/uL (150-450); Red Blood Count 3.71 10^6 /uL (3.70-4.87); Red Cell Distribution Width 19 % (10-15); White Blood Count 6.1 10^3/uL (3.5-10.8)
[2019-02-17 23:00] LABS: INR 1.41 (0.82-1.09)
[2019-02-17 23:07] LABS: Alcohol < 10 mg/dL (<10)
[2019-02-17 23:09] LABS: ALT 25 U/L (7-52); AST 43 U/L (13-39); Albumin 3.4 g/dL (3.2-5.2); Albumin/Globulin Ratio 0.7 (1-3); Alkaline Phosphatase 197 U/L (34-104); Anion Gap 10 mmol/L (2-11); BUN/Creatinine Ratio 26.4 (8-20); Blood Urea Nitrogen 24 mg/dL (6-24); CO2 Carbon Dioxide 20 mmol/L (22-32); Calcium 8.5 mg/dL (8.6-10.3); Chloride 104 mmol/L (101-111); EGFR African American 74.8 (>60); EGFR Non-African American 61.9 (>60); Globulin 5.1 g/dL (2-4); Glucose 81 mg/dL (70-100); Magnesium 2.4 mg/dL (1.9-2.7); Potassium 4.1 mmol/L (3.5-5.0); Sodium 134 mmol/L (135-145); Total Protein 8.5 g/dL (6.4-8.9)
[2019-02-17 23:10] LABS: Troponin I 0.01 ng/mL (<0.04)
[2019-02-17 23:23] LABS: TSH (Thyroid Stimulating Horm) 2.36 mcIU/mL (0.34-5.60)
[2019-02-18 00:04] LABS: Urine Appearance Clear; Urine Bacteria Absent (Absent); Urine Bilirubin Negative (Negative); Urine Blood Negative (Negative); Urine Color Yellow; Urine Glucose Negative (Negative); Urine Ketones Negative (Negative); Urine Nitrite Negative (Negative); Urine Protein Negative (Negative); Urine Red Blood Cell Absent (Absent); Urine Specific Gravity 1.012 (1.010-1.030); Urine Squamous Epithelial Cell Present (Absent); Urine Urobilinogen Negative (Negative); Urine White Blood Cell 2+(11-20/hpf) (Absent)
[2019-02-18 00:12] LABS: Urine Benzodiazepine Screen None Detected (None Detect); Urine Opiates Screen None Detected (None Detect)
--- NOTE | 2019-02-18 01:17 | ED ---
Lower Extremity - HPI Summary HPI Summary: Pt is a 68 y/o F presenting to the ED with a chief complaint of lower extremity issues. She states she has restless leg syndrome for which she takes Gabapentin , and her legs have been incredibly painful over the past couple of days. She does not sleep when the pain worsens. She also notes a headache and some shortness of breath. She denies chest pain, fever, vomiting, diarrhea, or dysuria. She notes that she did not take her Lactulose last night. She had a recent salpingo-oopherectomy. - History of Current Complaint Chief Complaint: EDNeurologicalDeficit Stated Complaint: MUSCLE SPASM PER DAUGHTER Time Seen by Provider: 02/18/19 00:48 Hx Obtained From: Patient Mechanism Of Injury: Other - restless leg syndrome Onset of Pain: Days Onset/Duration: Days Severity Initially: Moderate Severity Currently: Severe Pain Intensity: 10 Pain Scale Used: 0-10 Numeric Timing: Constant, Lasting Days Location: Is Diffuse - lower bilat LE Associated Signs And Symptoms: Negative: Fever Aggravating Factor(s): Nothing Alleviating Factor(s): Nothing - Allergies/Home Medications Allergies/Adverse Reactions: Allergies Allergy/AdvReac Type Severity Reaction Status Date / Time morphine Allergy Severe Anaphylatic Verified 02/23/19 02:07 Shock vancomycin Allergy Intermediate Rash And Verified 02/23/19 02:07 Itching lorazepam [From Ativan] Allergy See Comment Verified 02/23/19 02:07 meloxicam Allergy Rash Verified 02/23/19 02:07 Penicillins Allergy Swelling Verified 02/23/19 02:07 sulfamethoxazole Allergy Unknown Verified 02/23/19 02:07 [From Bactrim] Reaction Details trimethoprim [From Bactrim] Allergy Unknown Verified 02/23/19 02:07 Reaction Details acetaminophen [From Tylenol] AdvReac Unknown Verified 02/23/19 02:07 Reaction Details aspirin AdvReac CIRRHOSIS Verified 02/23/19 02:07 erythromycin base AdvReac Vomiting Verified 02/23/19 02:07 NSAIDS (Non-Steroidal AdvReac CIRRHOSIS Verified 02/23/19 02:07 Anti-Inflamma Sulfa (Sulfonamide AdvReac GI Upset Verified 02/23/19 02:07 Antibiotics) Home Medications: Home Medications Baclofen TAB* [Lioresal TAB*] 10 mg PO Q6H PRN 02/18/19 [History Confirmed 02/18] PMH/Surg Hx/FS Hx/Imm Hx Previously Healthy: Yes Endocrine/Hematology History: Reports: Hx Diabetes - DM II Cardiovascular History: Denies: Hx Hypertension, Hx Pacemaker/ICD, Other Cardiovascular Problems/ Disorders Respiratory History: Denies: Hx Chronic Obstructive Pulmonary Disease (COPD) GI History: Reports: 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, Hx Gastroesophageal Reflux Disease, Other GI Disorders - Esophageal varices History: Denies: Hx Renal Disease Musculoskeletal History: Reports: Hx Arthritis, Hx Back Problems - lumbar fusion in 1990, Hx Orthopedic Injury - 04/18/18: Fx three ribs from a fall, Other Musculoskeletal History - Restless leg syndrome Denies: Hx Osteoporosis Sensory History: Reports: Hx Cataracts - bilat, Hx Contacts or Glasses Denies: Hx Hearing Aid Opthamlomology History: Reports: Hx Cataracts - bilat, Hx Contacts or Glasses Neurological History: Reports: Hx Transient Ischemic Attacks (TIA) Psychiatric History: Reports: Hx Anxiety, Hx Depression Denies: Hx Panic Disorder - Cancer History Hx Chemotherapy: No Hx Radiation Therapy: No - Surgical History Surgery Procedure, Year, and Place: LUMBAR SPINAL FUSION 1990, tonsillectomy. TUBAL LIGATION. WISDOM TEETH. DOLORES CATARACTS. PARTIAL HYSTERECTOM 2018 [facility] Hx Anesthesia Reactions: No Infectious Disease History: No Infectious Disease History: Denies: Hx of Known/Suspected MRSA, Traveled Outside the [place] in Last 30 Days - Family History Known Family History: Positive: Diabetes - Mother - Social History Alcohol Use: None Alcohol Amount: Hx ETOH abuse, none currently Hx Substance Use: No Substance Use Type: Reports: None Hx Tobacco Use: Yes - not currently Smoking Status (MU): Former Smoker Type: Cigarettes Amount Used/How Often: 5 CIGS/DAY Length of Time of Smoking/Using Tobacco: 30 years Have You Smoked in the Last Year: Yes Review of Systems - ROS Summary Review of Systems Summary: Home Medications Medication Instructions Recorded Confirmed Type Lactulose* 30 ml PO BEDTIME 05/05/14 02/17/19 History Potassium Chlor TAB* [Potassium 20 meq PO TID 07/11/14 02/17/19 History Chlor TAB 20 MEQ*] Vitamin E CAP* 200 unit PO DAILY 12/23/15 02/17/19 History Cholecalciferol TAB* [Vitamin D 2,000 units PO EVERY OTHER DAY 01/10/16 History TAB*] Ferrous Sulfate TAB* 325 mg PO DAILY 02/08/16 02/17/19 History glipiZIDE TAB* [Glucotrol TAB*] 5 mg PO BID 04/05/17 02/17/19 History Alendronate (NF) [Fosamax (NF)] 70 mg PO WEEKLY 06/20/17 02/17/19 History Spironolactone [Aldactone 100 MG-] 300 mg PO QAM 06/20/17 02/17/19 History Zinc 50 mg PO BID 08/01/17 02/17/19 History Pramipexole TAB* [Mirapex TAB*] 0.25 mg PO BEDTIME 11/23/17 02/17/19 History Magnesium Chloride EC TAB* [Slow 71.5 - 119 mg PO DAILY 02/19/18 02/17/19 History Mag EC TAB*] Mirtazapine TAB* [Remeron TAB*] 30 mg PO BEDTIME 02/19/18 02/17/19 History Acarbose(NF) 50 mg PO TID 04/18/18 02/17/19 History Urea [Ureacin-20] 20 % TOPICAL EVERY OTHER DAY 07/20/18 02/17/19 History Insulin Glargine,Hum.rec.anlog 24 unit SC DAILY 10/05/18 02/17/19 History [Basaglar Kwikpen U-100] Ammonium Lactate 12% [Lac-Hydrin 1 applic TOPICAL DAILY PRN 12/04/18 02/17/19 History 12 %] C,E,Zinc,Copper 11/Kswan5z/Lut 1 cap PO DAILY 12/04/18 02/17/19 History [Ocuvite Adult 50 Plus Softgel] Calcium Carbonate [Calcium] 600 mg PO BID 12/04/18 02/17/19 History Furosemide TAB* [Lasix TAB*] 120 mg PO DAILY 12/04/18 02/17/19 History Gabapentin CAP(*) [Neurontin 300 600 mg PO QID 12/04/18 02/17/19 History CAP(*)] PARoxetine HCL TAB* [Paxil TAB*] 30 mg PO DAILY 12/04/18 02/17/19 History Pantoprazole TAB (NF) [Protonix 20 mg PO DAILY 12/04/18 02/17/19 History TAB (NF)] fentaNYL PATCH 12 MCG/HR * 12 mcg TRANSDERM Q72H 12/04/18 02/17/19 History [Duragesic Patch 12 Mcg/Hr *] oxyCODONE TAB* [Roxycodone TAB 5 10 mg PO .Q4-6H PRN 12/04/18 02/17/19 History mg*] Positive: Other - sleep disturbance. Negative: Fever Negative: Chest Pain Positive: Shortness Of Breath Negative: Vomiting, Diarrhea Negative: dysuria Positive: Myalgia Positive: Headache All Other Systems Reviewed And Are Negative: Yes Physical Exam - Summary Physical Exam Summary: General: Obese, Well-nourished female. Appears mildly agitated. Rolling in bed. HEENT: Normocephalic, Atraumatic. Eyes: Conjuctiva normal, PERRL. Ears: TMs within normal limits. Nares: (-) discharge, (-) erythema. Oropharynx: Clear, mucous membranes moist, (-) exudates. Neck: Soft, FROM, (-) lymphadenopathy, (-) thyromegaly, (-) JVD. Cardiovascular: Normal sinus rhythm, (-) murmur. Lungs: Clear to auscultation bilaterally (-) wheezes, (-) rales, (-) rhonchi. Abdomen: Soft, protuberant but soft and nontender. (-) organomegaly, normal bowel sounds. Back: (-) CVA tenderness Extremities: No edema. Constant motion of legs. Bilateral LE shows chronic venous stasis changes. Skin: Warm, dry, (-) rash. Neuro: Alert and oriented x3, no focal deficits. Psychiatric: Mood normal, affect normal. Triage Information Reviewed: Yes Vital Signs On Initial Exam: Initial Vitals Temp Pulse Resp BP Pulse Ox 99.1 F 84 20 117/76 93 02/17/19 22:15 02/17/19 22:15 02/17/19 22:15 02/17/19 22:15 02/17/19 22:15 Vital Signs Reviewed: Yes Procedures - Sedation Patient Received Moderate/Deep Sedation with Procedure: No Diagnostics - Vital Signs Vital Signs Temp Pulse Resp BP Pulse Ox 02/18/19 01:00 19 02/18/19 00:11 20 119/70 02/18/19 00:00 26 02/17/19 23:10 101 22 91 02/17/19 22:15 99.1 F 84 20 117/76 93 - Laboratory Lab Results: Lab Results 02/17/19 02/17/19 02/17/19 Range/Units 22:40 22:40 22:40 WBC 6.1 (3.5-10.8) 10^3/uL RBC 3.71 (3.70-4.87) 10^6 /uL Hgb 11.5 L (12.0-16.0) g/dL Hct 35 (35-47) % MCV 94 (80-97) fL MCH 31 (27-31) pg MCHC 33 (31-36) g/dL RDW 19 H (10-15) % Plt Count 167 (150-450) 10^3/uL MPV 7.6 (7.4-10.4) fL Neut % (Auto) 71.5 % Lymph % (Auto) 12.7 % Butts % (Auto) 12.4 % Eos % (Auto) 2.4 % Baso % (Auto) 1.0 % Absolute Neuts (auto) 4.3 (1.5-7.7) 10^3/ul Absolute Lymphs (auto) 0.8 L (1.0-4.8) 10^3/ul Absolute Monos (auto) 0.8 (0-0.8) 10^3/ul Absolute Eos (auto) 0.1 (0-0.6) 10^3/ul Absolute Basos (auto) 0.1 (0-0.2) 10^3/ul Absolute Nucleated RBC 0.0 10^3/ul Nucleated RBC % 0.0 INR (Anticoag Therapy) 1.41 H (0.82-1.09) Sodium 134 L (135-145) mmol/L Potassium 4.1 (3.5-5.0) mmol/L Chloride 104 (101-111) mmol/L Carbon Dioxide 20 L (22-32) mmol/L Anion Gap 10 (2-11) mmol/L BUN 24 (6-24) mg/dL Creatinine 0.91 (0.51-0.95) mg/dL Est GFR ( Amer) 74.8 (>60) Est GFR (Non-Af Amer) 61.9 (>60) BUN/Creatinine Ratio 26.4 H (8-20) Glucose 81 (70-100) mg/dL Lactic Acid (0.5-2.0) mmol/L Calcium 8.5 L (8.6-10.3) mg/dL Magnesium 2.4 (1.9-2.7) mg/dL Total Bilirubin 1.30 H (0.2-1.0) mg/dL AST 43 H (13-39) U/L ALT 25 (7-52) U/L Alkaline Phosphatase 197 H (34-104) U/L Ammonia (16-53) mcmol/L Troponin I 0.01 (<0.04) ng/mL Total Protein 8.5 (6.4-8.9) g/dL Albumin 3.4 (3.2-5.2) g/dL Globulin 5.1 H (2-4) g/dL Albumin/Globulin Ratio 0.7 L (1-3) TSH 2.36 (0.34-5.60) mcIU/mL Urine Color Urine Appearance Urine pH (5-9) Ur Specific [place] (1.010-1.030) Urine Protein (Negative) Urine Ketones (Negative) Urine Blood (Negative) Urine Nitrate (Negative) Urine Bilirubin (Negative) Urine Urobilinogen (Negative) Ur Leukocyte Esterase (Negative) Urine WBC (Auto) (Absent) Urine RBC (Auto) (Absent) Ur Squamous Epith Cells (Absent) Urine Bacteria (Absent) Urine Glucose (Negative) Urine Opiates Screen (None Detect) Ur Barbiturates Screen (None Detect) Ur Phencyclidine Scrn (None Detect) Ur Amphetamines Screen (None Detect) U Benzodiazepines Scrn (None Detect) Urine Cocaine Screen (None Detect) U Cannabinoids Screen (None Detect) Serum Alcohol < 10 (<10) mg/dL 02/17/19 02/17/19 02/17/19 Range/Units 22:40 22:40 23:48 WBC (3.5-10.8) 10^3/uL RBC (3.70-4.87) 10^6 /uL Hgb (12.0-16.0) g/dL Hct (35-47) % MCV (80-97) fL MCH (27-31) pg MCHC (31-36) g/dL RDW (10-15) % Plt Count (150-450) 10^3/uL MPV (7.4-10.4) fL Neut % (Auto) % Lymph % (Auto) % Butts % (Auto) % Eos % (Auto) % Baso % (Auto) % Absolute Neuts (auto) (1.5-7.7) 10^3/ul Absolute Lymphs (auto) (1.0-4.8) 10^3/ul Absolute Monos (auto) (0-0.8) 10^3/ul Absolute Eos (auto) (0-0.6) 10^3/ul Absolute Basos (auto) (0-0.2) 10^3/ul Absolute Nucleated RBC 10^3/ul Nucleated RBC % INR (Anticoag Therapy) (0.82-1.09) Sodium (135-145) mmol/L Potassium (3.5-5.0) mmol/L Chloride (101-111) mmol/L Carbon Dioxide (22-32) mmol/L Anion Gap (2-11) mmol/L BUN (6-24) mg/dL Creatinine (0.51-0.95) mg/dL Est GFR ( Amer) (>60) Est GFR (Non-Af Amer) (>60) BUN/Creatinine Ratio (8-20) Glucose (70-100) mg/dL Lactic Acid 1.3 (0.5-2.0) mmol/L Calcium (8.6-10.3) mg/dL Magnesium (1.9-2.7) mg/dL Total Bilirubin (0.2-1.0) mg/dL AST (13-39) U/L ALT (7-52) U/L Alkaline Phosphatase (34-104) U/L Ammonia 86 H (16-53) mcmol/L Troponin I (<0.04) ng/mL Total Protein (6.4-8.9) g/dL Albumin (3.2-5.2) g/dL Globulin (2-4) g/dL Albumin/Globulin Ratio (1-3) TSH (0.34-5.60) mcIU/mL Urine Color Yellow Urine Appearance Clear Urine pH 6.0 (5-9) Ur Specific [place] 1.012 (1.010-1.030) Urine Protein Negative (Negative) Urine Ketones Negative (Negative) Urine Blood Negative (Negative) Urine Nitrate Negative (Negative) Urine Bilirubin Negative (Negative) Urine Urobilinogen Negative (Negative) Ur Leukocyte Esterase Trace A (Negative) Urine WBC (Auto) 2+(11-20/hpf) A (Absent) Urine RBC (Auto) Absent (Absent) Ur Squamous Epith Cells Present A (Absent) Urine Bacteria Absent (Absent) Urine Glucose Negative (Negative) Urine Opiates Screen (None Detect) Ur Barbiturates Screen (None Detect) Ur Phencyclidine Scrn (None Detect) Ur Amphetamines Screen (None Detect) U Benzodiazepines Scrn (None Detect) Urine Cocaine Screen (None Detect) U Cannabinoids Screen (None Detect) Serum Alcohol (<10) mg/dL 02/17/19 Range/Units 23:48 WBC (3.5-10.8) 10^3/uL RBC (3.70-4.87) 10^6 /uL Hgb (12.0-16.0) g/dL Hct (35-47) % MCV (80-97) fL MCH (27-31) pg MCHC (31-36) g/dL RDW (10-15) % Plt Count (150-450) 10^3/uL MPV (7.4-10.4) fL Neut % (Auto) % Lymph % (Auto) % Butts % (Auto) % Eos % (Auto) % Baso % (Auto) % Absolute Neuts (auto) (1.5-7.7) 10^3/ul Absolute Lymphs (auto) (1.0-4.8) 10^3/ul Absolute Monos (auto) (0-0.8) 10^3/ul Absolute Eos (auto) (0-0.6) 10^3/ul Absolute Basos (auto) (0-0.2) 10^3/ul Absolute Nucleated RBC 10^3/ul Nucleated RBC % INR (Anticoag Therapy) (0.82-1.09) Sodium (135-145) mmol/L Potassium (3.5-5.0) mmol/L Chloride (101-111) mmol/L Carbon Dioxide (22-32) mmol/L Anion Gap (2-11) mmol/L BUN (6-24) mg/dL Creatinine (0.51-0.95) mg/dL Est GFR ( Amer) (>60) Est GFR (Non-Af Amer) (>60) BUN/Creatinine Ratio (8-20) Glucose (70-100) mg/dL Lactic Acid (0.5-2.0) mmol/L Calcium (8.6-10.3) mg/dL Magnesium (1.9-2.7) mg/dL Total Bilirubin (0.2-1.0) mg/dL AST (13-39) U/L ALT (7-52) U/L Alkaline Phosphatase (34-104) U/L Ammonia (16-53) mcmol/L Troponin I (<0.04) ng/mL Total Protein (6.4-8.9) g/dL Albumin (3.2-5.2) g/dL Globulin (2-4) g/dL Albumin/Globulin Ratio (1-3) TSH (0.34-5.60) mcIU/mL Urine Color Urine Appearance Urine pH (5-9) Ur Specific [place] (1.010-1.030) Urine Protein (Negative) Urine Ketones (Negative) Urine Blood (Negative) Urine Nitrate (Negative) Urine Bilirubin (Negative) Urine Urobilinogen (Negative) Ur Leukocyte Esterase (Negative) Urine WBC (Auto) (Absent) Urine RBC (Auto) (Absent) Ur Squamous Epith Cells (Absent) Urine Bacteria (Absent) Urine Glucose (Negative) Urine Opiates Screen None detected (None Detect) Ur Barbiturates Screen None detected (None Detect) Ur Phencyclidine Scrn None detected (None Detect) Ur Amphetamines Screen None detected (None Detect) U Benzodiazepines Scrn None detected (None Detect) Urine Cocaine Screen None detected (None Detect) U Cannabinoids Screen None detected (None Detect) Serum Alcohol (<10) mg/dL Result Diagrams: 02/19/19 06:57 02/19/19 06:57 Lab Statement: Any lab studies that have been ordered have been reviewed, and results considered in the medical decision making process. - Radiology CXR Radiology Interpretation Completed By: ED Physician Summary of Radiographic Findings: No acute changes. Pending official radiology report. - EKG 2328 Cardiac Rate: NL - 95bpm EKG Rhythm: Sinus Rhythm ST Segment: Normal Ectopy: None Summary of EKG Findings: EKG at 2329 reveals normal sinus rhythm with rate of 95 BPM, no acute changes, no ischemic changes. This EKG was reviewed and interpreted by Dr. Michaels. Lower Extremity Course/Dx - Course Course Of Treatment: Pt is a 68 y/o F presenting to the ED with a chief complaint of lower extremity issues. She states she has restless leg syndrome for which she takes Gabapentin, and her legs have been incredibly painful over the past couple of days. She does not sleep when the pain worsens. She also notes a headache and some shortness of breath. She denies chest pain, fever, vomiting, diarrhea, or dysuria. She notes that she did not take her Lactulose last night. She had a recent salpingo-oopherectomy. On exam, pt is obese, appears mildly agitated, rolling in bed. She has constant motion in her legs, her abd is protuberant but soft and nontender, and her bilateral LE shows chronic venous stasis changes. EKG at 2329 reveals normal sinus rhythm with rate of 95 BPM, no acute changes, no ischemic changes. This EKG was reviewed and interpreted by Dr. Michaels. Pts lab results show Hgb of 11.5, INR of 1.41, Sodium of 134, CO2 of 20, BUN/Creatinine of 26.4, Calcium of 8.5, total Bilirubin of 1.30, AST of 43, Alkaline Phosphate of 197, and Ammonia of 86. Pt s urine has trace leukocyte esterase present, present squamous epithelial cells , and 2+ WBC. CXR shows no acute process, pending official radiology report. Pt given 30ml Lactulose and 2 tablets of Percocet. I spoke with Dr. Chaudhry at 0309 about the pt's present condition. She accepts the pt to [facility]. The pt's dx is hepatic encephalopathy. - Diagnoses Provider Diagnoses: Hepatic encephalopathy - Physician Notifications Discussed Care Of Patient With: Galina Chaudhry Time Discussed With Above Provider: 03:09 Instructed by Provider To: Admit As Inpatient Discharge ED - Sign-Out/Discharge Documenting (check all that apply): Patient Departure - Discharge Plan Condition: Stable Disposition: ADMITTED TO [facility] - Billing Disposition and Condition Condition: STABLE Disposition: Admitted to [facility] - Attestation Statements Document Initiated by Scribe: Yes Documenting Scribe: Heather Lyles Provider For Whom Scribe is Documenting (Include Credential): Trish Michaels MD. Scribe Attestation: I, Heather Lyles, scribed for Trish Michaels MD. on 02/26/19 at 0011. Sky[place]mat[place] Documentation Reviewed: Yes Provider Attestation: The documentation as recorded by the nadeen, Heather Lyles accurately reflects the service I personally performed and the decisions made by me, Trish Michaels MD. Status of Nadeen Document: Viewed Consult Consult: 3509 - I spoke with Dr. Chaudhry who accepts the pt to [facility].
[2019-02-18] MEDS ORDERED: oxyCODONE/Acetamin 5/325 MG* TAB PO ONE (02:11)
[2019-02-18] MEDS ORDERED: Baclofen TAB* 10 MG PO ONE (04:20)
[2019-02-18] MEDS ORDERED: Dextrose 50% VIAL 50 ml IV PUSH PRN (04:39)
[2019-02-18] MEDS ORDERED: NS 0.9% 500 ML* 500 ML IV ONE (05:24)
--- NOTE | 2019-02-18 06:21 | PN ---
Hospitalist Progress Note Date of Service: 02/18/19 HOSPITALIST ADDENDUM Called by ED RN because patient was hypotensive 79/58, asymptomatic. She received 500ml NS bolus and BP is now 93/61; she continues to be asymptomatic. She does not have any signs of infection at this time to suggest sepsis. She's on a considerable diuretic dose as outpatient, that could be causing her to be intravascularly dry. Will hold Furosemide for now and continue to monitor.
[2019-02-18] MEDS: Insulin LISPRO* 1 UNITS UNIT SUBCUT SCH ×3 (08:38→17:29)
[2019-02-18] MEDS ORDERED: Furosemide TAB* 40 MG PO SCH (09:00)
[2019-02-18] MEDS ORDERED: Insulin GLARGINE(*) 1 UNITS UNIT SUBCUT SCH (09:00)
[2019-02-18] MEDS ORDERED: SPIRONOLACTONE PO SCH (09:00)
--- NOTE | 2019-02-18 09:54 | HP ---
CC: Dr. Estrada Richmond * HISTORY AND PHYSICAL: DATE OF ADMISSION: 02/18/19 TIME OF EVALUATION: 4:05 a.m. PRIMARY CARE PROVIDER: Estrada Richmond MD CHIEF COMPLAINT: Spams of the arms and torso. HISTORY OF PRESENT ILLNESS: Ms. Syed is a 68-year-old female with a past medical history of insulin-dependent diabetes, alcohol-related cirrhosis with history of ascites, and esophageal varices, restless leg syndrome, TIA, anxiety , depression, chronic pain, recent hysterectomy with salpingo-oophorectomy, who presented to the emergency room with complaints of tremors of upper extremities and torso. The patient states that since her surgery, she has not felt "great." She had an incidental finding bilateral ovarian cysts and had partial hysterectomy with salpingo-oophorectomy done at [facility] for the possibility of malignancy. As per the report, the pathology results were negative for malignancy. Over the past week, she has had more complaints with her restless leg syndrome, and she missed the dose of lactulose the night prior to admission. Today, she was noted to have "spasms of her upper extremities than of her torso when sitting up," reason why she came to the emergency room for further evaluation. She denies fever, chills, cough, chest pain, palpations, nausea, vomiting or unusual diarrhea beyond what she has with lactulose. She states that earlier this week, she had a mild dysuria, but this is already resolved. In the emergency room, her workup included an ammonia level of 86 and emergency room provider's impression is the patient had a hepatic encephalopathy. PAST MEDICAL HISTORY: 1. Insulin-dependent diabetes. 2. Alcohol-induced cirrhosis with prior history of ascites and esophageal varices requiring banding. 3. Restless leg syndrome. 4. TIA. 5. Anxiety. 6. Depression. 7. Arthritis. 8. Chronic low back pain. 9. Status post spinal fusion in 1992. 10. Status post partial hysterectomy with salpingo-oophorectomy about a month ago. MEDICATION LIST: 1. Acarbose 50 mg p.o. t.i.d. 2. Alendronate 70 mg p.o. weekly. 3. Ammonia lactate topical daily as needed for dry skin. 4. Baclofen 10 mg p.o. q.6 hours p.r.n. spasms. 5. Ocuvite 1 capsule p.o. daily. 6. Calcium carbonate 600 mg p.o. b.i.d. 7. Cholecalciferol 2000 units p.o. every other day. 8. Fentanyl patch 12 mcg topical q.72 hours. 9. Ferrous sulfate 325 mg p.o. daily. 10. Furosemide 120 mg p.o. daily. 11. Gabapentin 600 mg p.o. 4 times a day. 12. Glipizide 5 mg p.o. b.i.d. 13. Insulin glargine 24 units subcutaneously daily. 14. Lactulose 40 mL p.o. at bedtime. 15. Magnesium chloride 119 mg p.o. daily. 16. Mirtazapine 30 mg p.o. at bedtime. 17. Oxycodone 10 mg q.4 to 6 hours p.r.n. severe pain. 18. Lansoprazole 20 mg p.o. daily. 19. Paroxetine 30 mg p.o. daily. 20. Potassium chloride 10 mEq p.o. t.i.d. 21. Pramipexole 0.25 mg p.o. at bedtime. 22. Spironolactone 300 mg p.o. q.a.m. The patient is not sure if she has taken this medication. I cannot find this on her records here. So, I am going to hold this medication for now and this needs to be confirmed in the morning. 23. Urea 20% topical every other day. 24. Vitamin E 1200 units p.o. daily. 25. Zinc 50 units p.o. b.i.d. ALLERGIES: Extensive list includes MORPHINE, VANCOMYCIN, LORAZEPAM, MELOXICAM, PENICILLIN, BACTRIM, ASPIRIN, ERYTHROMYCIN, NSAID, and SULFA. FAMILY HISTORY: Mother has diabetes. Father of emphysema. SOCIAL HISTORY: The patient is a former smoker 30 pack a year. She is also a former alcoholic. She has been sober for 5 years. Surrogate decision maker is her daughter, Keri Monaco, phone number is [phone]. REVIEW OF SYSTEMS: A 14-point review of system is performed and all the pertinent negatives as per HPI. PHYSICAL EXAMINATION GENERAL: The patient is an elderly lady, lying in the ED stretcher, appears older than her stated age, in no acute distress. VITAL SIGNS: Temperature 99.1, heart rate is 93, respiratory rate is 19, oxygen saturation is 92% on room air, blood pressure 119/70. HEENT: Pupils are equal. Moist mucous membranes. CHEST: Breath sounds bilaterally diminished with no added sounds. CVS: Normal S1, S2. Regular rate and rhythm. ABDOMEN: Obese, soft, nontender, nondistended. Bowel sounds present. I do not appreciate any significant fluid shift to suggest ascites. EXTREMITIES: There is no significant edema. NEURO: She is alert x3, seems to be tired. Able to move all move all four extremities. She has to move her legs multiple times during the interview due to her restless leg syndrome. She has upper extremities asterixis. SKIN: There is severe dry skin with excoriations to her bilateral lower extremities with chronic skin changes. DIAGNOSTIC STUDIES/LAB DATA: The patient had a CBC that showed WBC of 6.1, hemoglobin 11.5, hematocrit 35, platelet of 167 with 79% neutrophils. INR is 1.4. Chemistry showed a sodium of 144, potassium 4.1, chloride 104, bicarb of 20 , anion gap of 10. BUN 24, creatinine 0.91, glucose of 91, lactic acid is 1.3, calcium is 8.5, magnesium 2.4. Total bilirubin 1.3, AST 43, ALT 25, alk phos 197. Troponin 0.01. Total protein 8.5, albumin is 3.4. TSH is 2.36, lactic acid is 1.3. Ammonia is elevated at 86. Urinalysis showed trace LE with 2+ WBCs. Nitrites are negative. Urine toxicology was negative as well as serum alcohol level. Chest x-ray was not yet officially read, but to my read it shows no acute pulmonary disease. EKG done on 02/17/19 at 2339 showed sinus rhythm at 95 beats per minute with no acute ischemic changes. No significant change when compared to her prior one from December, but the baseline on the current one is better than the prior one. ASSESSMENT AND PLAN: Mrs. Syed is a 68-year-old female with a past medical history of insulin-dependent diabetes, liver cirrhosis, restless leg syndrome, transient ischemic attack, chronic pain, recent partial hysterectomy with salpingo- oophorectomy, who presented to the emergency room with complaints of spasms, found to have mild hepatic encephalopathy and asterixis on physical examination. 1. Mild hepatic encephalopathy. The patient is a little more sleepy as per her daughter and she missed a dose of lactulose last night. Her ammonia is elevated at 86 and she has asterixis on physical examination that are compatible with the tremors that the daughter described on arrival to the ED. She will be admitted as observation to the medical floor and I am going to increase her lactulose dose to 40 mL t.i.d. for now and we will trend her lactulose. She probably would be able to be discharged home on her usual dose of 30 mL at bedtime. I do not see any other precipitating factors at this time. There does not appear to be any factor. There is no history compatible with GI bleed. She did have a surgical procedure, but it was almost a month ago. I believe the precipitant at this time was a missed dose of lactulose. She would continued on her other medications except for Aldactone. As per medication list, she is on 300 mg daily and I do not have any other notes confirming this dose. So, this will need to be confirmed in the morning. 2. Type 2 diabetes. We will continue Lantus and we will add Lispro sliding scale. 3. Restless leg syndrome. We will continue her usual medications including baclofen and Mirapex. 4. Chronic pain. We will continue her usual medications including fentanyl patch and oxycodone. 5. DVT prophylaxis. The patient has a score of 2 on the DVT Prophylaxis Assessment Guide and we will avoid pharmacological prophylaxis as she has history of esophageal varices, status post banding. She will have SCDs for now. 6. Code status is full. TIME SPENT: Approximately 50 minutes was spent with the patient interview, medical records review, physical examination to complete this admission, more than half of this time was spent [id number] with the patient and coordination of care. [id number]/[facility] #: [id number] SHILA
[2019-02-18] MEDS: Potassium Chlor TAB* 20 MEQ TAB.ER PO SCH ×3 (10:41→21:22)
[2019-02-18] MEDS: Gabapentin CAP(*) 300 MG PO SCH ×4 (10:42→21:20)
[2019-02-18] MEDS: Ferrous Sulfate TAB* 325 MG PO SCH (10:42)
[2019-02-18] MEDS: Calcium Carbonate TAB* 1250 MG (CALCIUM 500 MG) PO SCH ×2 (10:43→21:21)
[2019-02-18] MEDS: Cholecalciferol TAB* 1000 UNITS PO SCH (10:43)
[2019-02-18] MEDS: PARoxetine HCL TAB* 10 MG PO SCH ×3 (10:45→21:21)
[2019-02-18] MEDS: oxyCODONE TAB* 5 MG TAB PO PRN ×3 (10:49→21:27)
[2019-02-18] MEDS ORDERED: fentaNYL PATCH 12 MCG/HR TRANSDERM SCH (11:30)
[2019-02-18] MEDS: NFT: Pantoprazole TAB (NF) 20 MG TAB PO SCH (12:13)
[2019-02-18] MEDS: Baclofen TAB* 10 MG PO PRN (12:49)
[2019-02-18] MEDS ORDERED: Lidocaine 2% JELLY *30 ML TOPICAL PRN (13:13)
--- NOTE | 2019-02-18 17:34 | PN ---
Hospitalist Progress Note Date of Service: 02/18/19 S/IE: June Syed is a 68 year-old female with a history of alcoholic hepatic cirrhosis, DMII, TIA, restless leg syndrome, chronic MSK pain, arthritis and chronic b/l lower extremitiy dermatitis w/ulcerations who is s/p b /l salpingo-oophorectomy x1 month who presented with complaints of leg pain, spasms of the arms and torso and altered mental status and was admitted to the hospitalist service from [place] [facility] on 02/18/19 at 4:08 AM. Patient complains primarily of left leg pain from the hip down and describes it as "more of an internal pain" as compared to the chronic neuropathic pain that affects her b/l LE. Pain rated 3/10 although was previously 10/10. She reports no precipitating or palliating factors. Reports 6 year history of alcoholic hepatic cirrhosis with occasional episodes of hyperammonemia. Denies CP, SOB, fever, chills, N/V. Patient was a marginally reliable historian, having fallen asleep a couple of times during the interview. Spoke with and obtained some collateral information from daughter Keri Monaco who lives with and cares for patient. She reports that leg pain, spasms and disorientation occurred Monday (02/17/19) AM prompting her to bring her mother to hospital. She also reports headache to the right posterior aspect of the head and notes that patient fell a couple of months ago and has had neck pain since - uses a soft C-collar on occasion with some relief. There is a history of occasional falls at home that are thought to be balance related. Chronic pain is reportedly mostly MSK in nature - Hx of spinal stenosis with fusion from L3 down and coccygeal Fx 2016. Diabetes Hx reported to be about 2 years and correlates with significant abdominal weight gain. LE dermatitis / ulcerations are cyclical in nature and frequently treated at home with silver cream and bandaging and often improve but never seem to fully heal. Surgeon for recent partial hysterectomy at [facility] in [place] was Dr. hSarp, GI workers compensation consultant is Dr. Gabriel, pain manager product management is June EVERETT at [facility] [place] [facility], PCP is Dr. Richmond. O: PE: 3 Temp Pulse Resp BP Pulse Ox 97.3 F 87 18 112/53 97 02/18/19 08:00 02/18/19 08:00 02/18/19 15:03 02/18/19 08:00 02/18/19 08:00 General: AAOx4, somnolent, in no acute distress, obvious restlessness of legs, pleasantly cooperates with interview and examination. HEENT: Head atraumatic, normocephalic. Hearing grossly normal. PERRLA. EOMI. Some bruising around the right eye. Neck supple. Some JVP appreciated on the right. Oral mucosa pink and moist. Chest: Telangiectases diffusely present over chest. Breathing unlabored with normal symmetric chest wall movement. Lungs clear and equal to auscultation b/ l. regular heart rhythm with normal S1/S2. No rubs, clicks or gallops. Abdomen: Caput medusae present. Protuberant, moderately firm and non-tender. Mild fluid wave appreciated. Liver palpated just below the costal margin. Normal bowel sounds present. Back: Some bruising of left flank area. Extremities: UE and LE distal CMS intact b/l. Good handgrip strength. Good strength on plantar/dorsi flexion. Erythematous dermatitis present from the knees down b/l with a variety of open lesions in various stages of healing present. Minimal to no discharge from lesions. Calfs warm and slightly swollen b /l. Abnormal Lab Values: 3 02/17/19 02/17/19 02/17/19 22:40 22:40 22:40 Hgb 11.5 L RDW 19 H Absolute Lymphs (auto) 0.8 L INR (Anticoag Therapy) 1.41 H Sodium 134 L Carbon Dioxide 20 L BUN/Creatinine Ratio 26.4 H Calcium 8.5 L Total Bilirubin 1.30 H AST 43 H Alkaline Phosphatase 197 H Ammonia Globulin 5.1 H Albumin/Globulin Ratio 0.7 L Ur Leukocyte Esterase Urine WBC (Auto) Ur Squamous Epith Cells 3 02/17/19 02/17/19 02/18/19 22:40 23:48 10:26 Hgb RDW Absolute Lymphs (auto) INR (Anticoag Therapy) Sodium Carbon Dioxide BUN/Creatinine Ratio Calcium Total Bilirubin AST Alkaline Phosphatase Ammonia 86 H 83 H Globulin Albumin/Globulin Ratio Ur Leukocyte Esterase Trace A Urine WBC (Auto) 2+(11-20/hpf) A Ur Squamous Epith Cells Present A CXR (02/17/19): FINDINGS: Cardiac and mediastinal contours appear to be within normal limits. The lungs are hyperinflated and grossly clear. No pleural effusion is seen. There appears be an old fracture of the proximal left humerus. IMPRESSION: FINDINGS CONSISTENT WITH COPD, NO EVIDENCE FOR ACUTE DISEASE. EKG (02/17/19): Sinus rhythm Abdominal US (02/18/19): FINDINGS: There is a small amount of ascites. IMPRESSION: SMALL AMOUNT OF ASCITES. LE Venous Doppler Study (02/18/19): Bilaterally the common femoral veins, greater saphenous vein proximally, proximal deep femoral vein and femoral vein and popliteal vein appear patent and compressible. The calf vessels weren't limited as the patient could not tolerate the examination. IMPRESSION: No evidence of deep venous thrombosis in either lower extremity from the common femoral vein to the popliteal veins. Calf vessels could not be evaluated. Pelvis CT (02/18/19): Indication: Left hip pain. CT of the pelvis with attention to the left hip was performed. Coronal and sagittal reconstructed images were obtained. Comparison is made with previous exam dated December 04, 2018. There is complete loss of the superior joint space in the left hip. There is subchondral eburnation and subchondral cyst formation. Osteopenia is noted at the left femoral head neck junction. Findings are similar to that identified on December 04, 2018. The pelvic ring is otherwise intact. Healing fractures of the inferior pubic ramus is noted bilaterally. The right hip is grossly unremarkable. The iliac crest is unremarkable. Sacroiliac joints are unremarkable. IMPRESSION: No definite fracture is identified although marked degenerative changes of left hip is noted with subchondral cyst formation and lucent areas. Healing fractures of the inferior pubic ramus is noted bilaterally. These were present on previous exam of December 04, 2018. A/I: 68 year-old female with a history of alcoholic hepatic cirrhosis, DMII , TIA, restless leg syndrome, chronic MSK pain, arthritis and chronic b/l lower extremity dermatitis w/ ulcerations who is s/p b/l salpingo-oophorectomy x1 month with leg pain, recent Hx of spasms of the arms and torso and altered mental status. P: Altered Mental Status: DDx: High suspicion of hepatic encephalopathy based upon Hx including recent missed dose of lactulose and presently elevated ammonia level. Reasonable suspicion of hypoglycemia due to Hx of DMII and recent fingerstick in the 50's. Reasonable suspicion of TIA due to Hx of TIA and concern for possible LE DVT. Reasonable suspicion for hypotension due to finding of hypotension in ED that was treated with fluid bolus. Reasonable suspicion of infection due to signs of infection of b/l LE, also need to r/o SBP. Abdominal US to determine if enough ascities present to warrant pericentesis - "small amount of ascities present," will defer pericentesis at this time LE doppler study to check for DVT - r/o from hips to knees, unable to complete study from knees down due to pain - will re-consider performing study with additional analgesia tomorrow Continue to follow labs, particularly ammonia, glucose and WBC Continue lactulose administration Consider adding rifaximin for hyperammonemia Continue diuretic therapy LE Ulcerations: Chronic condition without satisfactory understanding of etiology Consider completing doppler study to r/o DVT as above Consider wound and / or infectious disease consult DMII: Chronic condition Continue to monitor BG levels Continue existing insulin regimen RLS: Chronic condition Continue existing medication regimen Pain: Chronic MSK pain Continue regular analgesia regimen Consult pain clinic if needed
--- NOTE | 2019-02-18 17:53 | PN ---
Subjective Date of Service: 02/18/19 Interval History: She had hypoglycemia with glucose 52 this morning, improved with juice and breakfast. She admitted that no food intake since yesterday. She complained of new onset of leg pain, initially on left, but moved to right this morning. She described it as internal pain, shooting pain ending on the knee, twisting pain. She also admitted that she was foggy for the past 2 days, and she fell down the night before which lead to her bruises on buttock and flank. She was able to converse well. Collateral history taken by medical student Nick Case, family noted she was not herself, more drowsy in the past 2 days, also worsening muscle spasms thus sent her to hospital. Objective Active Medications: Baclofen (Lioresal Tab*) 10 mg PO Q6H PRN PRN Reason: SPASMS Last Admin: 02/18/19 12:49 Dose: 10 mg Calcium Carbonate (Calcium Carbonate Tab*) 1,250 mg PO BID [facility] Last Admin: 02/18/19 10:43 Dose: 1,250 mg Cholecalciferol (Vitamin D Tab*) 2,000 units PO EVERY OTHER DAY [facility] Last Admin: 02/18/19 10:43 Dose: 2,000 units Dextrose (Dextrose 50% Vial 50 Ml*) 25 ml IV PUSH .FOR FS < 60 - SS PRN PRN Reason: FS < 60 Fentanyl (Duragesic Patch 12 Mcg/Hr *) 12 mcg TRANSDERM Q72H [facility] Last Admin: 02/18/19 12:49 Dose: 12 mcg Ferrous Sulfate (Ferrous Sulfate Tab*) 325 mg PO DAILY [facility] Last Admin: 02/18/19 10:42 Dose: 325 mg Gabapentin (Neurontin Cap(*)) 600 mg PO QID [facility] Last Admin: 02/18/19 15:03 Dose: 600 mg Insulin Human Lispro (Humalog*) 0 units SUBCUT AC [facility]; Protocol Last Admin: 02/18/19 17:29 Dose: Not Given Lactulose (Lactulose*) 30 ml PO TID [facility] Last Admin: 02/18/19 15:02 Dose: 30 ml Mirtazapine (Remeron Tab*) 30 mg PO BEDTIME [facility] Oxycodone HCl (Roxycodone Tab*) 10 mg PO Q4H PRN PRN Reason: PAIN - MODERATE Last Admin: 02/18/19 15:02 Dose: 10 mg Pantoprazole Sodium (Protonix Tab (Nf)) 20 mg PO DAILY [facility] Last Admin: 02/18/19 12:13 Dose: Not Given Paroxetine HCl (Paxil Tab*) 30 mg PO DAILY [facility] Last Admin: 02/18/19 12:57 Dose: Not Given Pharmacy Profile Note (Fentanyl Patch Check Q Shift) 1 note FOLLOW UP 0700, 1900 [facility] Potassium Chloride (Klor Con Er Tab*) 20 meq PO TID [facility] Last Admin: 02/18/19 15:03 Dose: 20 meq Pramipexole Dihydrochloride (Mirapex Tab*) 0.25 mg PO BEDTIME [facility] Rifaximin (Xifaxan*) 550 mg PO BID [facility] Vital Signs - 8 hr 02/18/19 02/18/19 02/18/19 10:42 10:49 12:49 Respiratory 20 20 20 Rate 02/18/19 02/18/19 02/18/19 12:58 15:02 15:03 Respiratory 20 18 18 Rate Oxygen Devices in Use Now: None Exam: Appearance: slow responding, NAD, pleasant Eyes: No Scleral Icterus Ears/Nose/Mouth/Throat: Clear Oropharnyx, Mucous Membranes Moist Neck: NL Appearance and Movements; NL JVP, Trachea Midline Respiratory: Symmetrical Chest Expansion and Respiratory Effort, Clear to Auscultation Cardiovascular: NL Sounds; No Murmurs; No JVD, RRR Abdominal: Distended, unable to access liver and spleen size due to distension Extremities: bilateral lower leg multiple ulcers on different stages, with clear discharges on some ulcers, and hyperpigmentation of bilateral legs Skin: spider nevi on anterior and posterior chest wall, caput medusae on abdomen Neurological: Alert and Oriented x 3, NL Gait Result Diagrams: 02/17/19 22:40 02/17/19 22:40 Additional Lab and Data: Lab Results 02/17/19 02/17/19 02/17/19 Range/Units 22:40 22:40 22:40 WBC 6.1 (3.5-10.8) 10^3/uL RBC 3.71 (3.70-4.87) 10^6 /uL Hgb 11.5 L (12.0-16.0) g/dL Hct 35 (35-47) % MCV 94 (80-97) fL MCH 31 (27-31) pg MCHC 33 (31-36) g/dL RDW 19 H (10-15) % Plt Count 167 (150-450) 10^3/uL MPV 7.6 (7.4-10.4) fL Neut % (Auto) 71.5 % Lymph % (Auto) 12.7 % Cottle % (Auto) 12.4 % Eos % (Auto) 2.4 % Baso % (Auto) 1.0 % Absolute Neuts (auto) 4.3 (1.5-7.7) 10^3/ul Absolute Lymphs (auto) 0.8 L (1.0-4.8) 10^3/ul Absolute Monos (auto) 0.8 (0-0.8) 10^3/ul Absolute Eos (auto) 0.1 (0-0.6) 10^3/ul Absolute Basos (auto) 0.1 (0-0.2) 10^3/ul Absolute Nucleated RBC 0.0 10^3/ul Nucleated RBC % 0.0 INR (Anticoag Therapy) 1.41 H (0.82-1.09) Sodium 134 L (135-145) mmol/L Potassium 4.1 (3.5-5.0) mmol/L Chloride 104 (101-111) mmol/L Carbon Dioxide 20 L (22-32) mmol/L Anion Gap 10 (2-11) mmol/L BUN 24 (6-24) mg/dL Creatinine 0.91 (0.51-0.95) mg/dL Est GFR ( Amer) 74.8 (>60) Est GFR (Non-Af Amer) 61.9 (>60) BUN/Creatinine Ratio 26.4 H (8-20) Glucose 81 (70-100) mg/dL Lactic Acid (0.5-2.0) mmol/L Calcium 8.5 L (8.6-10.3) mg/dL Magnesium 2.4 (1.9-2.7) mg/dL Total Bilirubin 1.30 H (0.2-1.0) mg/dL AST 43 H (13-39) U/L ALT 25 (7-52) U/L Alkaline Phosphatase 197 H (34-104) U/L Ammonia (16-53) mcmol/L Troponin I 0.01 (<0.04) ng/mL Total Protein 8.5 (6.4-8.9) g/dL Albumin 3.4 (3.2-5.2) g/dL Globulin 5.1 H (2-4) g/dL Albumin/Globulin Ratio 0.7 L (1-3) TSH 2.36 (0.34-5.60) mcIU/mL Urine Color Urine Appearance Urine pH (5-9) Ur Specific [place] (1.010-1.030) Urine Protein (Negative) Urine Ketones (Negative) Urine Blood (Negative) Urine Nitrate (Negative) Urine Bilirubin (Negative) Urine Urobilinogen (Negative) Ur Leukocyte Esterase (Negative) Urine WBC (Auto) (Absent) Urine RBC (Auto) (Absent) Ur Squamous Epith Cells (Absent) Urine Bacteria (Absent) Urine Glucose (Negative) Urine Opiates Screen (None Detect) Ur Barbiturates Screen (None Detect) Ur Phencyclidine Scrn (None Detect) Ur Amphetamines Screen (None Detect) U Benzodiazepines Scrn (None Detect) Urine Cocaine Screen (None Detect) U Cannabinoids Screen (None Detect) Serum Alcohol < 10 (<10) mg/dL 02/17/19 02/17/19 02/17/19 Range/Units 22:40 22:40 23:48 WBC (3.5-10.8) 10^3/uL RBC (3.70-4.87) 10^6 /uL Hgb (12.0-16.0) g/dL Hct (35-47) % MCV (80-97) fL MCH (27-31) pg MCHC (31-36) g/dL RDW (10-15) % Plt Count (150-450) 10^3/uL MPV (7.4-10.4) fL Neut % (Auto) % Lymph % (Auto) % Cottle % (Auto) % Eos % (Auto) % Baso % (Auto) % Absolute Neuts (auto) (1.5-7.7) 10^3/ul Absolute Lymphs (auto) (1.0-4.8) 10^3/ul Absolute Monos (auto) (0-0.8) 10^3/ul Absolute Eos (auto) (0-0.6) 10^3/ul Absolute Basos (auto) (0-0.2) 10^3/ul Absolute Nucleated RBC 10^3/ul Nucleated RBC % INR (Anticoag Therapy) (0.82-1.09) Sodium (135-145) mmol/L Potassium (3.5-5.0) mmol/L Chloride (101-111) mmol/L Carbon Dioxide (22-32) mmol/L Anion Gap (2-11) mmol/L BUN (6-24) mg/dL Creatinine (0.51-0.95) mg/dL Est GFR ( Amer) (>60) Est GFR (Non-Af Amer) (>60) BUN/Creatinine Ratio (8-20) Glucose (70-100) mg/dL Lactic Acid 1.3 (0.5-2.0) mmol/L Calcium (8.6-10.3) mg/dL Magnesium (1.9-2.7) mg/dL Total Bilirubin (0.2-1.0) mg/dL AST (13-39) U/L ALT (7-52) U/L Alkaline Phosphatase (34-104) U/L Ammonia 86 H (16-53) mcmol/L Troponin I (<0.04) ng/mL Total Protein (6.4-8.9) g/dL Albumin (3.2-5.2) g/dL Globulin (2-4) g/dL Albumin/Globulin Ratio (1-3) TSH (0.34-5.60) mcIU/mL Urine Color Yellow Urine Appearance Clear Urine pH 6.0 (5-9) Ur Specific [place] 1.012 (1.010-1.030) Urine Protein Negative (Negative) Urine Ketones Negative (Negative) Urine Blood Negative (Negative) Urine Nitrate Negative (Negative) Urine Bilirubin Negative (Negative) Urine Urobilinogen Negative (Negative) Ur Leukocyte Esterase Trace A (Negative) Urine WBC (Auto) 2+(11-20/hpf) A (Absent) Urine RBC (Auto) Absent (Absent) Ur Squamous Epith Cells Present A (Absent) Urine Bacteria Absent (Absent) Urine Glucose Negative (Negative) Urine Opiates Screen (None Detect) Ur Barbiturates Screen (None Detect) Ur Phencyclidine Scrn (None Detect) Ur Amphetamines Screen (None Detect) U Benzodiazepines Scrn (None Detect) Urine Cocaine Screen (None Detect) U Cannabinoids Screen (None Detect) Serum Alcohol (<10) mg/dL 02/17/19 Range/Units 23:48 WBC (3.5-10.8) 10^3/uL RBC (3.70-4.87) 10^6 /uL Hgb (12.0-16.0) g/dL Hct (35-47) % MCV (80-97) fL MCH (27-31) pg MCHC (31-36) g/dL RDW (10-15) % Plt Count (150-450) 10^3/uL MPV (7.4-10.4) fL Neut % (Auto) % Lymph % (Auto) % Cottle % (Auto) % Eos % (Auto) % Baso % (Auto) % Absolute Neuts (auto) (1.5-7.7) 10^3/ul Absolute Lymphs (auto) (1.0-4.8) 10^3/ul Absolute Monos (auto) (0-0.8) 10^3/ul Absolute Eos (auto) (0-0.6) 10^3/ul Absolute Basos (auto) (0-0.2) 10^3/ul Absolute Nucleated RBC 10^3/ul Nucleated RBC % INR (Anticoag Therapy) (0.82-1.09) Sodium (135-145) mmol/L Potassium (3.5-5.0) mmol/L Chloride (101-111) mmol/L Carbon Dioxide (22-32) mmol/L Anion Gap (2-11) mmol/L BUN (6-24) mg/dL Creatinine (0.51-0.95) mg/dL Est GFR ( Amer) (>60) Est GFR (Non-Af Amer) (>60) BUN/Creatinine Ratio (8-20) Glucose (70-100) mg/dL Lactic Acid (0.5-2.0) mmol/L Calcium (8.6-10.3) mg/dL Magnesium (1.9-2.7) mg/dL Total Bilirubin (0.2-1.0) mg/dL AST (13-39) U/L ALT (7-52) U/L Alkaline Phosphatase (34-104) U/L Ammonia (16-53) mcmol/L Troponin I (<0.04) ng/mL Total Protein (6.4-8.9) g/dL Albumin (3.2-5.2) g/dL Globulin (2-4) g/dL Albumin/Globulin Ratio (1-3) TSH (0.34-5.60) mcIU/mL Urine Color Urine Appearance Urine pH (5-9) Ur Specific [place] (1.010-1.030) Urine Protein (Negative) Urine Ketones (Negative) Urine Blood (Negative) Urine Nitrate (Negative) Urine Bilirubin (Negative) Urine Urobilinogen (Negative) Ur Leukocyte Esterase (Negative) Urine WBC (Auto) (Absent) Urine RBC (Auto) (Absent) Ur Squamous Epith Cells (Absent) Urine Bacteria (Absent) Urine Glucose (Negative) Urine Opiates Screen None detected (None Detect) Ur Barbiturates Screen None detected (None Detect) Ur Phencyclidine Scrn None detected (None Detect) Ur Amphetamines Screen None detected (None Detect) U Benzodiazepines Scrn None detected (None Detect) Urine Cocaine Screen None detected (None Detect) U Cannabinoids Screen None detected (None Detect) Serum Alcohol (<10) mg/dL Assess/Plan/Problems-Billing Assessment: 68 y/o female with history of T2DM, alcoholic liver cirrhosis with decompensation history, restless leg syndrome, chronic pain, chronic leg ulcers , presented with worsening leg pain, and altered mental status with a fall, found to have low BP, low glucose, high ammonia, concerning for overdiuresis and hepatic encephalopathy - Patient Problems (1) Altered mental state Current Visit: Yes Status: Acute Code(s): R41.82 - ALTERED MENTAL STATUS, UNSPECIFIED SNOMED Code(s): 099885306 Comment: - could be multifactorial including hypotension due to overdiuresis , hypoglycemia due to poor oral intake and insulin use, hepatic encephalopathy considering high ammonia - diuretics was stopped, insulin was stopped due to hypoglycemia, will watch and start back lower dose when improved - starting on rifaximin considering high ammonia levels. - US ascites done showing small amount ascites, mental status recovered after stopping diuretics and correcting hypoglycemia, thus not likely hepatic encephalopathy at this moment, also there are no other decompensation signs and symptoms. (2) Hypotension Current Visit: Yes Status: Acute Comment: - BP lowest 68/42mmhg in ED, recovered with stopping diuretics and iv fluid 500ml overnight. - will start diuretics at lower dose when bp is better (3) Hypoglycemia Current Visit: Yes Status: Acute Code(s): E16.2 - HYPOGLYCEMIA, UNSPECIFIED SNOMED Code(s): 963563457 Comment: - stopped insulin - monitor glucose - will need to restart at smaller dose later on (4) Chronic pain Current Visit: No Status: Acute Code(s): G89.29 - OTHER CHRONIC PAIN SNOMED Code(s): 35137029 Comment: - chronic lower back pain and pelvic pain, leg pain with chronic ulcers. - on fentanyl patch, oxycodone 10mg Q4h prn, gabapentin for pain - adding licodaine gel to apply on bilateral leg (5) Hip pain Current Visit: No Status: Chronic Priority: Medium Code(s): M25.559 - PAIN IN UNSPECIFIED HIP SNOMED Code(s): 30914799 Comment: - CT pelvis today, no acute fracture or metastasis noted - start pt/ot - will manage medically (6) Restless leg syndrome Current Visit: No Status: Acute Comment: - Continue Mirapex (7) Leg pain Current Visit: Yes Status: Acute Comment: bilateral legs with chronic ulcer changes, extreme tender to touch us dvt considering leg pain and hypercoagulable state with liver cirrhosis lidocaine gel to bilateral legs wound care consult Status and Disposition: Inpatient Medicine. Attestation Documenting Resident: Remedios Del Angel Supervising Physician: Rosenda Thomas Attending/Supervising Physician Comment: Ms. Syed is a 68 year old woman with hsitory of etoh cirrhosis followed by GI who seems to have been well controlled recently, DM, chronic lower extremity wounds, recurrent falls, who presented to the hospital with confusion per her daughter--the patient says she came here for leg pain, but then elaborates to say that she actually came because her daughter insisted because she was "not thinking in reality." She expresses good insight this morning and is very appropriate. #hepatic encephalopathy at admission she was noted to have asterixis in the setting of neurocognitive changes, so this diagnosis seems appropriate, and she improved with an extra dose of lactulose. however it should be noted that she has many other possibilities for becoming encephalopathic including polypharmacy, hypoglycemia by the time we saw her this morning, she had no asterixis and still some impaired short term memory loss, so we will continue to treat with lactulose # ascites? her abdominal exam is convincing for ascites to me, but her US from just mid- last week showed no ascites and she doesn't think it is changed and she has not been gaining weight; and then a repeat US today confirmed "small" amount of ascites no fevers, abdominal pain, leukocytosis to raise the concern for SBP # leg pain pain is vague and seems to migrate and she says it is the same pain that she has had for many years her CT pelvis from June had some bonyc hanges concerning for metastatic disease so we will repeat that and also be sure no occult fracture #recurrent falls neuropathy vs. hypoglycemia vs. spinal stenosis vs. deconditioning vs. leg wounds vs. encephalopathy PT consult may consider CT head at some point Attestation: This service has been performed in part by a resident under the direction of a teaching physician.I, Rosenda Thomas, performed the service, or was physically present during the critical, or mancini portions of the service, furnished by the resident. I participated in the management of the patient.
[2019-02-18] MEDS: fentaNYL Patch Check Q Shift 1 NOTE FOLLOW UP SCH (18:48)
[2019-02-18] MEDS ORDERED: Pramipexole TAB* 0.125 MG PO SCH (21:00)
[2019-02-18] MEDS: Lidocaine 2% JELLY* 6 ML JELLY TOPICAL SCH (21:17)
[2019-02-18] MEDS: Mirtazapine TAB* 15 MG PO SCH (21:21)
[2019-02-18] MEDS: RiFAXimin* 550 MG TAB PO SCH (21:22)
[2019-02-19] MEDS: fentaNYL Patch Check Q Shift 1 NOTE FOLLOW UP SCH ×2 (06:55→18:52)
[2019-02-19 07:43] LABS: ABS Basophils 0.1 10^3/ul (0-0.2); ABS Eosinophils 0.3 10^3/ul (0-0.6); ABS Lymphocytes 0.8 10^3/ul (1.0-4.8); ABS Monocytes 0.6 10^3/ul (0-0.8); ABS Neutrophils 2.6 10^3/ul (1.5-7.7); Eosinophil % 6.1 %; Hematocrit 34 % (35-47); Hemoglobin 11.5 g/dL (12.0-16.0); Lymphocyte % 17.6 %; Mean Corpuscular HGB Conc 33 g/dL (31-36); Mean Corpuscular Hemoglobin 32 pg (27-31); Mean Corpuscular Volume 95 fL (80-97); Mean Platelet Volume 7.6 fL (7.4-10.4); Nucleated Red Blood Cells % 0.2; Platelet Count 166 10^3/uL (150-450); Red Blood Count 3.64 10^6 /uL (3.70-4.87); Red Cell Distribution Width 19 % (10-15); White Blood Count 4.3 10^3/uL (3.5-10.8)
[2019-02-19 07:52] LABS: Albumin 3.1 g/dL (3.2-5.2); Anion Gap 8 mmol/L (2-11); CO2 Carbon Dioxide 22 mmol/L (22-32); Calcium 8.7 mg/dL (8.6-10.3); Chloride 106 mmol/L (101-111); Potassium 4.6 mmol/L (3.5-5.0); Sodium 136 mmol/L (135-145)
[2019-02-19 07:58] LABS: ALT 20 U/L (7-52); AST 33 U/L (13-39); Albumin/Globulin Ratio 0.7 (1-3); Alkaline Phosphatase 166 U/L (34-104); Blood Urea Nitrogen 21 mg/dL (6-24); EGFR African American 82.1 (>60); EGFR Non-African American 67.8 (>60); Globulin 4.5 g/dL (2-4); Glucose 93 mg/dL (70-100); Total Protein 7.6 g/dL (6.4-8.9)
[2019-02-19] MEDS: Insulin LISPRO* 1 UNITS UNIT SUBCUT SCH ×3 (08:19→16:27)
[2019-02-19] MEDS: Calcium Carbonate TAB* 1250 MG (CALCIUM 500 MG) PO SCH ×2 (08:34→20:38)
[2019-02-19] MEDS: Ferrous Sulfate TAB* 325 MG PO SCH (08:34)
[2019-02-19] MEDS: Potassium Chlor TAB* 20 MEQ TAB.ER PO SCH ×3 (08:35→20:39)
[2019-02-19] MEDS: Gabapentin CAP(*) 300 MG PO SCH ×3 (08:35→16:27)
[2019-02-19] MEDS: RiFAXimin* 550 MG TAB PO SCH ×2 (08:37→20:39)
[2019-02-19] MEDS: oxyCODONE TAB* 5 MG TAB PO PRN ×3 (08:45→22:16)
[2019-02-19 10:59] LABS: % Iron Saturation 11 % (15-55); Iron 39 ug/dL (50-212); Total Iron Binding Capacity 370 mcg/dL (250-450); Transferrin 264 mg/dL (203-362)
[2019-02-19 11:19] LABS: Ferritin 113.7 ng/mL (11-307)
[2019-02-19] MEDS ORDERED: NS 0.9% 1000 ML** 1,000 ML IV ONE (11:38)
[2019-02-19] MEDS: Lidocaine 2% JELLY* 6 ML JELLY TOPICAL SCH ×3 (11:54→20:33)
--- NOTE | 2019-02-19 13:02 | PN ---
Hospitalist Progress Note Date of Service: 02/19/19 S/IE: June Syed is a 68 year-old female with a history of alcoholic hepatic cirrhosis, DMII, TIA, restless leg syndrome, chronic MSK pain, arthritis and chronic b/l lower extremity dermatitis w/ ulcerations who is s/p b /l salpingo-oophorectomy x1 month who presented with complaints of leg pain, spasms of the arms and torso and altered mental status and was admitted to the hospitalist service from the [facility] [place] [facility] ED on 02/18/19 at 4:08 AM. Feeling well overall today. States leg pain is "more under control." Reports hands are "more steady" today, not having trouble with dropping silverware, etc. which has been an issue recently. Complains of dryness / crusting of ulcerated areas of lower extremities b/l, believes this has happened because of lidocaine cream that was being applied to hopefully facilitate completion of the venous doppler study. Now complaining of R sided occipital headache relieved by light pressure or re- positioning of neck. Overall pain level 7/10. Reports BM last evening - first since admission. Ambulating to and from bathroom. Morning POC glucose was 49. There was also an unexpected episode of hypotension after morning rounds today ( 77/48 lowest recorded value) that responded to a fluid bolus. O: PE: 3 Temp Pulse Resp BP Pulse Ox 98.2 F 85 20 108/73 92 02/19/19 11:07 02/19/19 11:07 02/19/19 14:23 02/19/19 12:22 02/19/19 12:01 General: AAOx4, in no acute distress, pleasantly cooperates with interview and examination. HEENT: Head atraumatic, normocephalic. Hearing grossly normal. PERRLA. EOMI. Some bruising around the right eye. Neck supple. Oral mucosa pink and moist. Chest: Telangiectases diffusely present over chest. Breathing unlabored with normal symmetric chest wall movement. Lungs clear and equal to auscultation b/ l. Regular heart rhythm with normal S1/S2. No rubs, clicks or gallops. Abdomen: Caput medusae present. Protuberant, moderately firm and non-tender. Normal bowel sounds present. Back: Some bruising of left and right flank areas. Extremities: UE and LE distal CMS intact b/l. Good handgrip strength. Erythematous dermatitis present from the knees down b/l with a variety of open lesions in various stages of healing present. Minimal to no discharge from lesions. Skin somewhat dry and crusted particularly over the dorsal surfaces of the ankles. Calfs warm and slightly swollen b/l. Abnormal Lab Values: 3 02/19/19 02/19/19 02/19/19 06:57 06:57 07:53 RBC 3.64 L Hgb 11.5 L Hct 34 L MCH 32 H RDW 19 H Absolute Lymphs (auto) 0.8 L BUN/Creatinine Ratio 25.0 H POC Glucose (mg/dL) 49 L Iron 39 L % Saturation 11 L Alkaline Phosphatase 166 H Ammonia Albumin 3.1 L Globulin 4.5 H Albumin/Globulin Ratio 0.7 L 3 02/19/19 10:55 Ammonia 116 H 3 02/18/19 10:26 Ammonia 83 H 3 02/17/19 02/17/19 02/17/19 22:40 22:40 22:40 Hgb 11.5 L RDW 19 H Absolute Lymphs (auto) 0.8 L Sodium 134 L Carbon Dioxide 20 L BUN/Creatinine Ratio 26.4 H Calcium 8.5 L Total Bilirubin 1.30 H AST 43 H Alkaline Phosphatase 197 H Ammonia 86 H Globulin 5.1 H Albumin/Globulin Ratio 0.7 L 3 02/17/19 22:40 INR (Anticoag Therapy) 1.41 H 3 02/17/19 23:48 Ur Leukocyte Esterase Trace A Urine WBC (Auto) 2+(11-20/hpf) A Ur Squamous Epith Cells Present A Brain CT (02/19/19): FINDINGS: There is no hemorrhagic focus, mass effect or midline shift. There is unchanged encephalomalacia in the right cerebellar hemisphere. Otherwise, the beaulieu-white matter differentiation is grossly maintained. There is no abnormal cerebral edema. Trace periventricular and subcortical hypoattenuation, without mass effect, is nonspecific. The ventricles are of conventional size and configuration. The basal cisterns are patent. There is no abnormal extra axial collection. The globes and orbits are symmetric. The paranasal sinuses and mastoid air cells are predominantly well aerated. IMPRESSION: 1. No acute intracranial abnormality. 2. Unchanged right cerebellar hemisphere encephalomalacia. 3. Mild chronic small vessel ischemic disease is likely. Urine Culture (02/19/19): No Growth Collected 02/17/[address] (02/18/19): Indication: Left hip pain. CT of the pelvis with attention to the left hip was performed. Coronal and sagittal reconstructed images were obtained. Comparison is made with previous exam dated December 04, 2018. There is complete loss of the superior joint space in the left hip. There is subchondral eburnation and subchondral cyst formation. Osteopenia is noted at the left femoral head neck junction. Findings are similar to that identified on December 04, 2018. The pelvic ring is otherwise intact. Healing fractures of the inferior pubic ramus is noted bilaterally. The right hip is grossly unremarkable. The iliac crest is unremarkable. Sacroiliac joints are unremarkable. IMPRESSION: No definite fracture is identified although marked degenerative changes of left hip is noted with subchondral cyst formation and lucent areas. Healing fractures of the inferior pubic ramus is noted bilaterally. These were present on previous exam of December 04, 2018. LE Venous Doppler Study (02/18/19): Bilaterally the common femoral veins, greater saphenous vein proximally, proximal deep femoral vein and femoral vein and popliteal vein appear patent and compressible. The calf vessels weren't limited as the patient could not tolerate the examination. IMPRESSION: No evidence of deep venous thrombosis in either lower extremity from the common femoral vein to the popliteal veins. Calf vessels could not be evaluated. Abdominal US (02/18/19): FINDINGS: There is a small amount of ascites. IMPRESSION: SMALL AMOUNT OF ASCITES. CXR (02/17/19): FINDINGS: Cardiac and mediastinal contours appear to be within normal limits. The lungs are hyperinflated and grossly clear. No pleural effusion is seen. There appears be an old fracture of the proximal left humerus. IMPRESSION: FINDINGS CONSISTENT WITH COPD, NO EVIDENCE FOR ACUTE DISEASE. EKG (02/17/19): Sinus rhythm Current Medications: Baclofen (Lioresal Tab*) 10 mg PO Q6H PRN PRN Reason: SPASMS Last Admin: 02/18/19 12:49 Dose: 10 mg Calcium Carbonate (Calcium Carbonate Tab*) 1,250 mg PO BID [facility] Last Admin: 02/19/19 08:34 Dose: 1,250 mg Cholecalciferol (Vitamin D Tab*) 2,000 units PO EVERY OTHER DAY [facility] Last Admin: 02/18/19 10:43 Dose: 2,000 units Dextrose (Dextrose 50% Vial 50 Ml*) 25 ml IV PUSH .FOR FS < 60 - SS PRN PRN Reason: FS < 60 Fentanyl (Duragesic Patch 12 Mcg/Hr *) 12 mcg TRANSDERM Q72H [facility] Last Admin: 02/18/19 12:49 Dose: 12 mcg Ferrous Sulfate (Ferrous Sulfate Tab*) 325 mg PO DAILY [facility] Last Admin: 02/19/19 08:34 Dose: 325 mg Gabapentin (Neurontin Cap(*)) 600 mg PO QID [facility] Last Admin: 02/19/19 12:47 Dose: Not Given Insulin Human Lispro (Humalog*) 0 units SUBCUT AC [facility]; Protocol Last Admin: 02/19/19 12:38 Dose: Not Given Lactulose (Lactulose*) 30 ml PO TID [facility] Last Admin: 02/19/19 13:28 Dose: 30 ml Lidocaine HCl (Lidocaine 2% Jelly*) 1 applic TOPICAL TID [facility] Last Admin: 02/19/19 14:26 Dose: Not Given Mirtazapine (Remeron Tab*) 30 mg PO BEDTIME [facility] Last Admin: 02/18/19 21:21 Dose: 30 mg Multi-Ingredient Ointment (Hydrocerin*) 1 applic TOPICAL BID [facility] Oxycodone HCl (Roxycodone Tab*) 10 mg PO Q4H PRN PRN Reason: PAIN - MODERATE Last Admin: 02/19/19 14:23 Dose: 10 mg Pantoprazole Sodium (Protonix Tab*) 40 mg PO DAILY [facility] Last Admin: 02/19/19 13:28 Dose: 40 mg Paroxetine HCl (Paxil Tab*) 30 mg PO BEDTIME [facility] Last Admin: 02/18/19 21:21 Dose: 30 mg Pharmacy Profile Note (Fentanyl Patch Check Q Shift) 1 note FOLLOW UP 0700, 1900 [facility] Last Admin: 02/19/19 06:55 Dose: 1 note Potassium Chloride (Klor Con Er Tab*) 20 meq PO TID [facility] Last Admin: 02/19/19 14:23 Dose: 20 meq Pramipexole Dihydrochloride (Mirapex Tab*) 0.25 mg PO BEDTIME [facility] Last Admin: 02/18/19 21:22 Dose: 0.25 mg Rifaximin (Xifaxan*) 550 mg PO BID [facility] Last Admin: 02/19/19 08:37 Dose: 550 mg Recent Orders: 02/18/19 18:25 Physical Therapy Routine 02/18/19 18:27 Wound Care Consult Routine 02/18/19 19:00 fentaNYL Patch Check Q Shift 1 note FOLLOW UP 0700,1900 02/18/19 21:00 Lidocaine 2% JELLY* 1 applic TOPICAL TID Mirtazapine TAB* [Remeron TAB*] 30 mg PO BEDTIME PARoxetine HCL TAB* [Paxil TAB*] 30 mg PO BEDTIME Pramipexole TAB* [Mirapex TAB*] 0.25 mg PO BEDTIME RiFAXimin* [Xifaxan*] 550 mg PO BID 02/18/19 Dinner Consistent Carbohydrate Diet 02/19/19 06:57 AFP Tumor Marker Routine Hemoglobin A1c [CHEM] Routine 02/19/19 12:00 Pantoprazole TAB * [Protonix TAB*] 40 mg PO DAILY 02/19/19 21:00 Moisturizing CREAM* [Hydrocerin*] 1 applic TOPICAL BID A/I: 68 year-old female with a history of alcoholic hepatic cirrhosis, DMII , TIA, restless leg syndrome, chronic MSK pain, arthritis and chronic b/l lower extremity dermatitis w/ ulcerations who is s/p b/l salpingo-oophorectomy x1 month with leg pain, recent Hx of spasms of the arms and torso and altered mental status. P: Altered Mental Status: High suspicion of hepatic encephalopathy based upon Hx including recent missed dose of lactulose and presently elevated ammonia level. Reasonable suspicion of hypoglycemia due to Hx of DMII and recent fingerstick in the 50's. Reasonable suspicion of TIA due to Hx of TIA and concern for possible LE DVT. Reasonable suspicion for hypotension due to finding of hypotension in ED that was treated with fluid bolus. Reasonable suspicion of infection due to signs of infection of b/l LE, also need to r/o SBP. Head CT shows no acute changes Added rifaximin for hyperammonemia Continue lactulose administration SBP prophylaxis not indicated at this time, MELD score is 10 Ordered HgbA1C to aid in determining if chronic hypoglycemia might be an issue Ordered cortisol level to investigate possibility hypotension due to adrenal insufficiency Holding pramipexole - adverse effect profile is concerning for several of patient's symptoms including hypotension, headache, dizziness and skin infections Abdominal US to determine if enough ascities present to warrant pericentesis - "small amount of ascities present," will defer pericentesis at this time LE doppler study to check for DVT - r/o from hips to knees, unable to complete study from knees down due to pain - will re-consider performing study with additional analgesia tomorrow Continue to follow labs, particularly ammonia, glucose and WBC LE Ulcerations: Chronic condition without satisfactory understanding of etiology Consider completing doppler study to r/o DVT as above Ordered wound consult Ordered moisturizing cream DMII: Chronic condition Continue to closely monitor BG levels Ordered HgbA1C as above Continue existing insulin regimen, though currently no insulin being given Pain: Chronic MSK pain Continue regular analgesia regimen - fentanyl and oxycodone as above Holding gabapentin to assess pain and RLS control without it due to family concerns about whether or not it is an effective medication for patient Consult pain clinic if needed RLS: Chronic condition Holding pramiprexole and gabapentin as above Will need to explore alternative Tx if pramiprexole and / or gabapentin found to be inappropriate for patient
[2019-02-19] MEDS: Pantoprazole TAB * 40 MG TAB PO SCH (13:28)
[2019-02-19] MEDS: Baclofen TAB* 10 MG PO PRN (14:23)
--- NOTE | 2019-02-19 14:51 | CONSULT ---
Subjective Date of Service: 02/19/19 Interval History: Ms. Syed is a 68 yo female with PMH significant for DM2, alocholic cirrhosis , RLS, TIA, anxiety, depression, arthritis, chronic low back pain; who presented to the hospital with complaints of spasms. She was admitted for hepatic encephalopathy. Patient presented to the hospital with dark discolored legs, with scabbing. She states that this has been present for awhile. She uses lotion on her legs at home. Patient seen and examined at bedside. Family History: Unchanged from Admission Social History: Unchanged from Admission Past Medical History: Unchanged from Admission Review of Systems - Measurements Intake and Output: Intake and Output Last 24 Hours 02/17/19 02/18/19 02/19/19 02/20/19 06:59 06:59 06:59 06:59 Intake Total 893 980 3655 Balance 154 606 0694 Weight 180 lb 183 lb 14.4 oz Intake: IV Fluids 500 1000 Oral 440 240 Other: Estimated Void Medium # Bowel Movements 1 1 Estimated Stool Amount Medium Medium # Voids 1 - Review of Systems Constitutional Symptoms: Positive: Fatigue Negative: Fever, Other - Chills Dermatology: Positive: Other - LE skin changes Endocrinology: Positive: Diabetes Mellitus Objective Active Medications: Baclofen (Lioresal Tab*) 10 mg PO Q6H PRN Reason: SPASMS Calcium Carbonate (Calcium Carbonate Tab*) 1,250 mg PO BID [facility] Cholecalciferol (Vitamin D Tab*) 2,000 units PO EVERY OTHER DAY [facility] Dextrose (Dextrose 50% Vial 50 Ml*) 25 ml IV PUSH PRN FOR FS < 60 Fentanyl (Duragesic Patch 12 Mcg/Hr *) 12 mcg TRANSDERM Q72H [facility] Ferrous Sulfate (Ferrous Sulfate Tab*) 325 mg PO DAILY [facility] Gabapentin (Neurontin Cap(*)) 600 mg PO QID [facility] Insulin Human Lispro (Humalog*) 0 units SUBCUT AC [facility]; Protocol Lactulose (Lactulose*) 30 ml PO TID [facility] Lidocaine HCl (Lidocaine 2% Jelly*) 1 applic TOPICAL TID [facility] Mirtazapine (Remeron Tab*) 30 mg PO BEDTIME [facility] Oxycodone HCl (Roxycodone Tab*) 10 mg PO Q4H PRN Reason: PAIN - MODERATE Pantoprazole Sodium (Protonix Tab*) 40 mg PO DAILY [facility] Paroxetine HCl (Paxil Tab*) 30 mg PO BEDTIME [facility] Pharmacy Profile Note (Fentanyl Patch Check Q Shift) 1 note FOLLOW UP 0700, 1900 [facility] Potassium Chloride (Klor Con Er Tab*) 20 meq PO TID [facility] Pramipexole Dihydrochloride (Mirapex Tab*) 0.25 mg PO BEDTIME [facility] Rifaximin (Xifaxan*) 550 mg PO BID [facility] Vital Signs 02/19/19 02/19/19 02/19/19 11:07 11:30 11:40 Temperature 98.2 F Pulse Rate 85 Respiratory 20 Rate Blood Pressure 77/48 80/58 85/54 (mmHg) O2 Sat by Pulse 87 88 94 Oximetry Oxygen Devices in Use Now: None Appearance: NAD, sitting up in a chair Ears/Nose/Mouth/Throat: Mucous Membranes Moist Respiratory: Symmetrical Chest Expansion and Respiratory Effort Extremities: No Edema Skin: - - See skin note below Neurological: - - Drowsy, Oriented x3 Nutrition: Taking PO's Result Diagrams: 02/19/19 06:57 02/19/19 06:57 Diagnostic Imagin. Exam Date: 02/18/19 1028- VL LOWER EXT VEINS BILATERAL IMPRESSION: No evidence of deep venous thrombosis in either lower extremity from the common femoral vein to the popliteal veins. Calf vessels could not be evaluated. Skin Deviation Note - Skin Deviation Findings left medial lower leg - No open areas, there are multiple areas of crusting present. Left lateral lower leg - No open areas, there are multiple areas of crusting present. Right medial lower leg - No open areas, there are multiple areas of crusting present. Right lateral lower leg - No open areas, there are multiple areas of crusting present. Wound Problem/Plan Assessment: Ms. Syed is a 68 yo female with PMH significant for DM2, alocholic cirrhosis , RLS, TIA, anxiety, depression, arthritis, chronic low back pain; who presented to the hospital with complaints of spasms. She was admitted for hepatic encephalopathy. Patient presented to the hospital with dark discolored legs, with scabbing. 1. Bilateral LEs with crusting and chronic skin changes. Suspect this is venous stasis dermatitis. Recommend washing the legs with soap and water. Apply Eucerin lotion to the legs twice daily. Could use rolled gauze to keep lotion in place if desired. Consider ABIs to evaluate circulation status. If ABIs are normal, could consider using compression. Encouraged to keep legs elevated. 2. DM2. HgA1c was 9.1 in June 2018. Maintain good glycemic control to allow for wound healing. 3. Obesity. BMI ~ 37 4. Diet. Consistent Carbohydrate diet. 5. Code Status. Full Code Status. 6. Disposition. Observation, disposition per primary medicine team. TIME SPENT: Time for this wound consultation was 25 minutes and 15 minutes was spent with the patient discussing past medical history; assessing, measuring, and photographing the wounds. Is Patient a Wound Clinic Patient: No Attending: Mariah White
--- NOTE | 2019-02-19 14:52 | PN ---
Subjective Date of Service: 02/19/19 Interval History: Patient complained of 7/10 pain of bilateral legs and hips. She felt lidocaine gel didn't work well. She had hypoglycemia early this morning while not on any diabetes regimen, but she was taking glipizide at home, last dose was 2 days ago. She complained of headache starting this morning together with hypotension with sBP at 80s. Objective Active Medications: Baclofen (Lioresal Tab*) 10 mg PO Q6H PRN PRN Reason: SPASMS Last Admin: 02/18/19 12:49 Dose: 10 mg Calcium Carbonate (Calcium Carbonate Tab*) 1,250 mg PO BID [facility] Last Admin: 02/19/19 08:34 Dose: 1,250 mg Cholecalciferol (Vitamin D Tab*) 2,000 units PO EVERY OTHER DAY [facility] Last Admin: 02/18/19 10:43 Dose: 2,000 units Dextrose (Dextrose 50% Vial 50 Ml*) 25 ml IV PUSH .FOR FS < 60 - SS PRN PRN Reason: FS < 60 Fentanyl (Duragesic Patch 12 Mcg/Hr *) 12 mcg TRANSDERM Q72H [facility] Last Admin: 02/18/19 12:49 Dose: 12 mcg Ferrous Sulfate (Ferrous Sulfate Tab*) 325 mg PO DAILY [facility] Last Admin: 02/19/19 08:34 Dose: 325 mg Gabapentin (Neurontin Cap(*)) 600 mg PO QID [facility] Last Admin: 02/19/19 12:47 Dose: Not Given Insulin Human Lispro (Humalog*) 0 units SUBCUT AC [facility]; Protocol Last Admin: 02/19/19 12:38 Dose: Not Given Lactulose (Lactulose*) 30 ml PO TID [facility] Last Admin: 02/19/19 13:28 Dose: 30 ml Lidocaine HCl (Lidocaine 2% Jelly*) 1 applic TOPICAL TID [facility] Last Admin: 02/19/19 14:26 Dose: Not Given Mirtazapine (Remeron Tab*) 30 mg PO BEDTIME [facility] Last Admin: 02/18/19 21:21 Dose: 30 mg Oxycodone HCl (Roxycodone Tab*) 10 mg PO Q4H PRN PRN Reason: PAIN - MODERATE Last Admin: 02/19/19 14:23 Dose: 10 mg Pantoprazole Sodium (Protonix Tab*) 40 mg PO DAILY [facility] Last Admin: 02/19/19 13:28 Dose: 40 mg Paroxetine HCl (Paxil Tab*) 30 mg PO BEDTIME [facility] Last Admin: 02/18/19 21:21 Dose: 30 mg Pharmacy Profile Note (Fentanyl Patch Check Q Shift) 1 note FOLLOW UP 0700, 1900 [facility] Last Admin: 02/19/19 06:55 Dose: 1 note Potassium Chloride (Klor Con Er Tab*) 20 meq PO TID [facility] Last Admin: 02/19/19 14:23 Dose: 20 meq Pramipexole Dihydrochloride (Mirapex Tab*) 0.25 mg PO BEDTIME [facility] Last Admin: 02/18/19 21:22 Dose: 0.25 mg Rifaximin (Xifaxan*) 550 mg PO BID [facility] Last Admin: 02/19/19 08:37 Dose: 550 mg Vital Signs - 8 hr 02/19/19 02/19/19 02/19/19 07:31 08:35 08:45 Temperature 98 F Pulse Rate 85 Respiratory 18 18 18 Rate Blood Pressure 127/68 (mmHg) O2 Sat by Pulse 94 Oximetry 02/19/19 02/19/19 02/19/19 11:07 11:30 11:40 Temperature 98.2 F Pulse Rate 85 Respiratory 20 Rate Blood Pressure 77/48 80/58 85/54 (mmHg) O2 Sat by Pulse 87 88 94 Oximetry 02/19/19 02/19/19 02/19/19 11:54 12:01 12:22 Temperature Pulse Rate Respiratory Rate Blood Pressure 82/62 84/55 108/73 (mmHg) O2 Sat by Pulse 93 92 Oximetry 02/19/19 14:23 Temperature Pulse Rate Respiratory 20 Rate Blood Pressure (mmHg) O2 Sat by Pulse Oximetry Oxygen Devices in Use Now: None Exam: Appearance: slow responding, NAD, pleasant Eyes: No Scleral Icterus Ears/Nose/Mouth/Throat: Clear Oropharnyx, Mucous Membranes Moist Neck: NL Appearance and Movements; NL JVP, Trachea Midline Respiratory: Symmetrical Chest Expansion and Respiratory Effort, Clear to Auscultation Cardiovascular: NL Sounds; No Murmurs; No JVD, RRR Abdominal: Distended, unable to access liver and spleen size due to distension Extremities: bilateral lower leg multiple ulcers on different stages, with clear discharges on some ulcers, and hyperpigmentation of bilateral legs Skin: spider nevi on anterior and posterior chest wall, caput medusae on abdomen Neurological: Alert and Oriented x 3, NL Gait Result Diagrams: 02/19/19 06:57 02/19/19 06:57 Additional Lab and Data: Lab Results 02/17/19 02/17/19 02/17/19 Range/Units 22:40 22:40 22:40 WBC 6.1 (3.5-10.8) 10^3/uL RBC 3.71 (3.70-4.87) 10^6 /uL Hgb 11.5 L (12.0-16.0) g/dL Hct 35 (35-47) % MCV 94 (80-97) fL MCH 31 (27-31) pg MCHC 33 (31-36) g/dL RDW 19 H (10-15) % Plt Count 167 (150-450) 10^3/uL MPV 7.6 (7.4-10.4) fL Neut % (Auto) 71.5 % Lymph % (Auto) 12.7 % [place] % (Auto) 12.4 % Eos % (Auto) 2.4 % Baso % (Auto) 1.0 % Absolute Neuts (auto) 4.3 (1.5-7.7) 10^3/ul Absolute Lymphs (auto) 0.8 L (1.0-4.8) 10^3/ul Absolute Monos (auto) 0.8 (0-0.8) 10^3/ul Absolute Eos (auto) 0.1 (0-0.6) 10^3/ul Absolute Basos (auto) 0.1 (0-0.2) 10^3/ul Absolute Nucleated RBC 0.0 10^3/ul Nucleated RBC % 0.0 INR (Anticoag Therapy) 1.41 H (0.82-1.09) Sodium 134 L (135-145) mmol/L Potassium 4.1 (3.5-5.0) mmol/L Chloride 104 (101-111) mmol/L Carbon Dioxide 20 L (22-32) mmol/L Anion Gap 10 (2-11) mmol/L BUN 24 (6-24) mg/dL Creatinine 0.91 (0.51-0.95) mg/dL Est GFR ( Amer) 74.8 (>60) Est GFR (Non-Af Amer) 61.9 (>60) BUN/Creatinine Ratio 26.4 H (8-20) Glucose 81 (70-100) mg/dL Lactic Acid (0.5-2.0) mmol/L Calcium 8.5 L (8.6-10.3) mg/dL Magnesium 2.4 (1.9-2.7) mg/dL Total Bilirubin 1.30 H (0.2-1.0) mg/dL AST 43 H (13-39) U/L ALT 25 (7-52) U/L Alkaline Phosphatase 197 H (34-104) U/L Ammonia (16-53) mcmol/L Troponin I 0.01 (<0.04) ng/mL Total Protein 8.5 (6.4-8.9) g/dL Albumin 3.4 (3.2-5.2) g/dL Globulin 5.1 H (2-4) g/dL Albumin/Globulin Ratio 0.7 L (1-3) TSH 2.36 (0.34-5.60) mcIU/mL Urine Color Urine Appearance Urine pH (5-9) Ur Specific [place] (1.010-1.030) Urine Protein (Negative) Urine Ketones (Negative) Urine Blood (Negative) Urine Nitrate (Negative) Urine Bilirubin (Negative) Urine Urobilinogen (Negative) Ur Leukocyte Esterase (Negative) Urine WBC (Auto) (Absent) Urine RBC (Auto) (Absent) Ur Squamous Epith Cells (Absent) Urine Bacteria (Absent) Urine Glucose (Negative) Urine Opiates Screen (None Detect) Ur Barbiturates Screen (None Detect) Ur Phencyclidine Scrn (None Detect) Ur Amphetamines Screen (None Detect) U Benzodiazepines Scrn (None Detect) Urine Cocaine Screen (None Detect) U Cannabinoids Screen (None Detect) Serum Alcohol < 10 (<10) mg/dL 02/17/19 02/17/19 02/17/19 Range/Units 22:40 22:40 23:48 WBC (3.5-10.8) 10^3/uL RBC (3.70-4.87) 10^6 /uL Hgb (12.0-16.0) g/dL Hct (35-47) % MCV (80-97) fL MCH (27-31) pg MCHC (31-36) g/dL RDW (10-15) % Plt Count (150-450) 10^3/uL MPV (7.4-10.4) fL Neut % (Auto) % Lymph % (Auto) % [place] % (Auto) % Eos % (Auto) % Baso % (Auto) % Absolute Neuts (auto) (1.5-7.7) 10^3/ul Absolute Lymphs (auto) (1.0-4.8) 10^3/ul Absolute Monos (auto) (0-0.8) 10^3/ul Absolute Eos (auto) (0-0.6) 10^3/ul Absolute Basos (auto) (0-0.2) 10^3/ul Absolute Nucleated RBC 10^3/ul Nucleated RBC % INR (Anticoag Therapy) (0.82-1.09) Sodium (135-145) mmol/L Potassium (3.5-5.0) mmol/L Chloride (101-111) mmol/L Carbon Dioxide (22-32) mmol/L Anion Gap (2-11) mmol/L BUN (6-24) mg/dL Creatinine (0.51-0.95) mg/dL Est GFR ( Amer) (>60) Est GFR (Non-Af Amer) (>60) BUN/Creatinine Ratio (8-20) Glucose (70-100) mg/dL Lactic Acid 1.3 (0.5-2.0) mmol/L Calcium (8.6-10.3) mg/dL Magnesium (1.9-2.7) mg/dL Total Bilirubin (0.2-1.0) mg/dL AST (13-39) U/L ALT (7-52) U/L Alkaline Phosphatase (34-104) U/L Ammonia 86 H (16-53) mcmol/L Troponin I (<0.04) ng/mL Total Protein (6.4-8.9) g/dL Albumin (3.2-5.2) g/dL Globulin (2-4) g/dL Albumin/Globulin Ratio (1-3) TSH (0.34-5.60) mcIU/mL Urine Color Yellow Urine Appearance Clear Urine pH 6.0 (5-9) Ur Specific [place] 1.012 (1.010-1.030) Urine Protein Negative (Negative) Urine Ketones Negative (Negative) Urine Blood Negative (Negative) Urine Nitrate Negative (Negative) Urine Bilirubin Negative (Negative) Urine Urobilinogen Negative (Negative) Ur Leukocyte Esterase Trace A (Negative) Urine WBC (Auto) 2+(11-20/hpf) A (Absent) Urine RBC (Auto) Absent (Absent) Ur Squamous Epith Cells Present A (Absent) Urine Bacteria Absent (Absent) Urine Glucose Negative (Negative) Urine Opiates Screen (None Detect) Ur Barbiturates Screen (None Detect) Ur Phencyclidine Scrn (None Detect) Ur Amphetamines Screen (None Detect) U Benzodiazepines Scrn (None Detect) Urine Cocaine Screen (None Detect) U Cannabinoids Screen (None Detect) Serum Alcohol (<10) mg/dL 02/17/19 Range/Units 23:48 WBC (3.5-10.8) 10^3/uL RBC (3.70-4.87) 10^6 /uL Hgb (12.0-16.0) g/dL Hct (35-47) % MCV (80-97) fL MCH (27-31) pg MCHC (31-36) g/dL RDW (10-15) % Plt Count (150-450) 10^3/uL MPV (7.4-10.4) fL Neut % (Auto) % Lymph % (Auto) % [place] % (Auto) % Eos % (Auto) % Baso % (Auto) % Absolute Neuts (auto) (1.5-7.7) 10^3/ul Absolute Lymphs (auto) (1.0-4.8) 10^3/ul Absolute Monos (auto) (0-0.8) 10^3/ul Absolute Eos (auto) (0-0.6) 10^3/ul Absolute Basos (auto) (0-0.2) 10^3/ul Absolute Nucleated RBC 10^3/ul Nucleated RBC % INR (Anticoag Therapy) (0.82-1.09) Sodium (135-145) mmol/L Potassium (3.5-5.0) mmol/L Chloride (101-111) mmol/L Carbon Dioxide (22-32) mmol/L Anion Gap (2-11) mmol/L BUN (6-24) mg/dL Creatinine (0.51-0.95) mg/dL Est GFR ( Amer) (>60) Est GFR (Non-Af Amer) (>60) BUN/Creatinine Ratio (8-20) Glucose (70-100) mg/dL Lactic Acid (0.5-2.0) mmol/L Calcium (8.6-10.3) mg/dL Magnesium (1.9-2.7) mg/dL Total Bilirubin (0.2-1.0) mg/dL AST (13-39) U/L ALT (7-52) U/L Alkaline Phosphatase (34-104) U/L Ammonia (16-53) mcmol/L Troponin I (<0.04) ng/mL Total Protein (6.4-8.9) g/dL Albumin (3.2-5.2) g/dL Globulin (2-4) g/dL Albumin/Globulin Ratio (1-3) TSH (0.34-5.60) mcIU/mL Urine Color Urine Appearance Urine pH (5-9) Ur Specific [place] (1.010-1.030) Urine Protein (Negative) Urine Ketones (Negative) Urine Blood (Negative) Urine Nitrate (Negative) Urine Bilirubin (Negative) Urine Urobilinogen (Negative) Ur Leukocyte Esterase (Negative) Urine WBC (Auto) (Absent) Urine RBC (Auto) (Absent) Ur Squamous Epith Cells (Absent) Urine Bacteria (Absent) Urine Glucose (Negative) Urine Opiates Screen None detected (None Detect) Ur Barbiturates Screen None detected (None Detect) Ur Phencyclidine Scrn None detected (None Detect) Ur Amphetamines Screen None detected (None Detect) U Benzodiazepines Scrn None detected (None Detect) Urine Cocaine Screen None detected (None Detect) U Cannabinoids Screen None detected (None Detect) Serum Alcohol (<10) mg/dL Assess/Plan/Problems-Billing Assessment: 68 y/o female with history of T2DM, alcoholic liver cirrhosis with decompensation history, restless leg syndrome, chronic pain, chronic leg ulcers , presented with worsening leg pain, and altered mental status with a fall, found to have low BP, low glucose, high ammonia, concerning for overdiuresis and hepatic encephalopathy - Patient Problems (1) Altered mental state Current Visit: Yes Status: Acute Code(s): R41.82 - ALTERED MENTAL STATUS, UNSPECIFIED SNOMED Code(s): 447347020 Comment: - could be multifactorial including hypotension due to overdiuresis , hypoglycemia due to poor oral intake and insulin use, hepatic encephalopathy considering high ammonia - diuretics was stopped, insulin and OHGA was stopped due to hypoglycemia, mental status recovered but still low glucose and bp today, responsive to fluid - on lactulose and rifaximin currently for hepatic encephalopathy - will check 8am cortisol level tomorrow to rule out adrenal insufficiency. (2) Hypotension Current Visit: Yes Status: Acute Comment: - BP lowest 68/42mmhg in ED, recovered with stopping diuretics and iv fluid 500ml overnight. - another episode of hypotension today, responsive to 1L IV fluid bolus - will watch fluid status closely (3) Hypoglycemia Current Visit: Yes Status: Acute Code(s): E16.2 - HYPOGLYCEMIA, UNSPECIFIED SNOMED Code(s): 889694556 Comment: - stopped insulin, glipizide, arcabose - It takes a bit longer for glipizide to excrete in liver cirrhosis patient, will monitor her glucose closely for now, definitely stop glipizide for her (4) Chronic pain Current Visit: No Status: Acute Code(s): G89.29 - OTHER CHRONIC PAIN SNOMED Code(s): 99615898 Comment: - chronic lower back pain and pelvic pain, leg pain with chronic ulcers. - hip pain investigated as it was her major complain on admission, but ct pelvis no new fracture. - continue fentanyl patch, oxycodone 10mg Q4h prn, gabapentin for pain - continue licodaine gel with mosturizer (5) Restless leg syndrome Current Visit: No Status: Acute Comment: - Continue Mirapex (6) Leg pain Current Visit: Yes Status: Acute Comment: bilateral legs with chronic ulcer changes, extreme tender to touch us dvt considering leg pain and hypercoagulable state with liver cirrhosis, pending result wound care consult (7) Headache Current Visit: Yes Status: Acute Code(s): R51 - HEADACHE SNOMED Code(s): 57445334 Comment: new onset severe headache today, together with hypotension, no neurological deficit could be hypotension related CT scan to rule out intracranial bleeding neuro check Q4h Status and Disposition: Inpatient Medicine. Attestation Documenting Resident: Remedios Del Angel Supervising Physician: Rosenda Thomas Attending/Supervising Physician Comment: hypotension and hypoglycemia have persisted today. no evidence of infection to explain either. her diuretics have been on hold since admission, yet still with periods of hypotension. insulin and glipizide on hold since yesterday morning, when she ewas also hypoglycemic, but BG still 50 this am. glipizide is hepatically metabolized, so may not be a good choice for her. I am concerned that she may be having hypoglycemia at home that has gone unnoticed since she does not check her sugar first thing in the morning. She also says that her falls often do occur at this time. encephalopathy is resolved despite a rising ammonia. labs do not suggest fulminant liver failure. will continue to hold insulin; needs to be euglycemic before discharge. PT consult today Attestation: This service has been performed in part by a resident under the direction of a teaching physician.I, Rosenda Thomas, performed the service, or was physically present during the critical, or mancini portions of the service, furnished by the resident. I participated in the management of the patient.
[2019-02-19] MEDS: NFT: Pantoprazole TAB (NF) 20 MG TAB PO SCH (20:11)
[2019-02-19] MEDS: Mirtazapine TAB* 15 MG PO SCH (20:39)
[2019-02-19] MEDS: PARoxetine HCL TAB* 10 MG PO SCH (20:39)
[2019-02-19] MEDS: Moisturizing CREAM* 120 GM JAR TOPICAL SCH (20:50)
[2019-02-20] MEDS: oxyCODONE TAB* 5 MG TAB PO PRN ×3 (03:13→15:02)
[2019-02-20] MEDS: fentaNYL Patch Check Q Shift 1 NOTE FOLLOW UP SCH (07:04)
--- NOTE | 2019-02-20 07:20 | PN ---
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 Feeling well overall today. Awake since about 4:00 AM. First POC glucose @0810 was 111 mg/ dL. No episodes of hypoglycemia or hypotension today. Headaches have been less frequent and of shorter duration. Overall pain level 6/10 today. Moisturizing cream has somewhat improved comfort and appearance with respect to LE skin ulcerations. Having about 2 BMs daily. Normally about 6 at home. Ambulating well. Denies dizziness / lightheadedness, CP, SOB, fever, chills. Planning for discharge this evening, daughter to pick. Outpatient f/u appointments have been scheduled. O: PE: 3 Temp Pulse Resp BP Pulse Ox 97.4 F 96 18 106/53 92 02/20/19 03:35 02/20/19 03:35 02/20/19 05:16 02/20/19 03:35 02/20/19 03:35 General: AAOx4, in no acute distress, pleasantly cooperates with interview and examination. HEENT: Head atraumatic, normocephalic. Hearing grossly normal. PERRLA. EOMI. Some bruising around the right eye. Neck supple. Oral mucosa pink and moist. Chest: Telangiectases diffusely present over chest. Breathing unlabored with normal symmetric chest wall movement. Lungs clear and equal to auscultation b/ l. Regular heart rhythm with normal S1/S2. No rubs, clicks or gallops. Abdomen: Caput medusae present. Protuberant, moderately firm and non-tender. Normal bowel sounds present. Back: Some bruising of left and right flank areas. Extremities: UE and LE distal CMS intact b/l. Good handgrip strength. Good strength on plantar/dorsi flexion. Erythematous dermatitis present from the knees down b/l with a variety of open lesions in various stages of healing present. Some clear discharge from ulcerations on dorsal aspect of feet b/l. Skin somewhat dry and crusted particularly over the dorsal surfaces of the ankles. Calfs warm and slightly swollen b/l. Pertinent Lab Results: AFP Tumor Marker (02/19/19 @0657): 2.4 ng/mL (normal <6.0) 3 02/20/19 02/20/19 14:30 15:09 Cortisol 12.86 24.71 *Baseline 12.86 was followed by 0.25 mg cosyntropin IV for ACTH stimulation test 3 02/20/19 02/20/19 02/20/19 07:57 07:57 08:10 POC Glucose (mg/dL) 111 H Ammonia 89 H Cortisol 8.44 3 02/19/19 06:57 Hemoglobin A1c 6.1 H 3 02/19/19 02/19/19 06:57 10:55 BUN/Creatinine Ratio 25.0 H Iron 39 L % Saturation 11 L Alkaline Phosphatase 166 H Ammonia 116 H Albumin 3.1 L Globulin 4.5 H Albumin/Globulin Ratio 0.[address] (02/19/19): FINDINGS: There is no hemorrhagic focus, mass effect or midline shift. There is unchanged encephalomalacia in the right cerebellar hemisphere. Otherwise, the beaulieu-white matter differentiation is grossly maintained. There is no abnormal cerebral edema. Trace periventricular and subcortical hypoattenuation, without mass effect, is nonspecific. The ventricles are of conventional size and configuration. The basal cisterns are patent. There is no abnormal extra axial collection. The globes and orbits are symmetric. The paranasal sinuses and mastoid air cells are predominantly well aerated. IMPRESSION: 1. No acute intracranial abnormality. 2. Unchanged right cerebellar hemisphere encephalomalacia. 3. Mild chronic small vessel ischemic disease is likely. Wound Consult (02/19/19): 1. Bilateral LEs with crusting and chronic skin changes. Suspect this is venous stasis dermatitis. Recommend washing the legs with soap and water. Apply Eucerin lotion to the legs twice daily. Could use rolled gauze to keep lotion in place if desired. Consider ABIs to evaluate circulation status. If ABIs are normal, could consider using compression. Encouraged to keep legs elevated. 2. DM2. HgA1c was 9.1 in June 2018. Maintain good glycemic control to allow for wound healing. 3. Diet. Consistent Carbohydrate diet. Current Medications: Baclofen (Lioresal Tab*) 10 mg PO Q6H PRN PRN Reason: SPASMS Last Admin: 02/18/19 12:49 Dose: 10 mg Calcium Carbonate (Calcium Carbonate Tab*) 1,250 mg PO BID [facility] Last Admin: 02/19/19 20:38 Dose: 1,250 mg Cholecalciferol (Vitamin D Tab*) 2,000 units PO EVERY OTHER DAY [facility] Last Admin: 02/18/19 10:43 Dose: 2,000 units Dextrose (Dextrose 50% Vial 50 Ml*) 25 ml IV PUSH .FOR FS < 60 - SS PRN PRN Reason: FS < 60 Fentanyl (Duragesic Patch 12 Mcg/Hr *) 12 mcg TRANSDERM Q72H [facility] Last Admin: 02/18/19 12:49 Dose: 12 mcg Ferrous Sulfate (Ferrous Sulfate Tab*) 325 mg PO DAILY [facility] Last Admin: 02/19/19 08:34 Dose: 325 mg Lactulose (Lactulose*) 30 ml PO TID [facility] Last Admin: 02/19/19 20:39 Dose: 30 ml Lidocaine HCl (Lidocaine 2% Jelly*) 1 applic TOPICAL TID [facility] Last Admin: 02/19/19 20:33 Dose: Not Given Mirtazapine (Remeron Tab*) 30 mg PO BEDTIME [facility] Last Admin: 02/19/19 20:39 Dose: 30 mg Multi-Ingredient Ointment (Hydrocerin*) 1 applic TOPICAL BID [facility] Last Admin: 02/19/19 20:50 Dose: 1 applic Oxycodone HCl (Roxycodone Tab*) 10 mg PO Q4H PRN PRN Reason: PAIN - MODERATE Last Admin: 02/20/19 03:13 Dose: 10 mg Pantoprazole Sodium (Protonix Tab*) 40 mg PO DAILY [facility] Last Admin: 02/19/19 13:28 Dose: 40 mg Paroxetine HCl (Paxil Tab*) 30 mg PO BEDTIME [facility] Last Admin: 02/19/19 20:39 Dose: 30 mg Pharmacy Profile Note (Fentanyl Patch Check Q Shift) 1 note FOLLOW UP 0700, 1900 [facility] Last Admin: 02/20/19 07:04 Dose: 1 note Potassium Chloride (Klor Con Er Tab*) 20 meq PO TID [facility] Last Admin: 02/19/19 20:39 Dose: 20 meq Rifaximin (Xifaxan*) 550 mg PO BID [facility] Last Admin: 02/19/19 20:39 Dose: 550 mg Recent Orders: 02/19/19 06:57 AFP Tumor Marker Routine Hemoglobin A1c [CHEM] Routine 02/19/19 12:00 Pantoprazole TAB * [Protonix TAB*] 40 mg PO DAILY 02/19/19 21:00 Moisturizing CREAM* [Hydrocerin*] 1 applic TOPICAL BID 02/20/19 08:00 Ammonia [CHEM] Stat Cortisol [CHEM] Routine A/I: 68 year-old female with a history of alcoholic hepatic cirrhosis, DMII , TIA, restless leg syndrome, chronic MSK pain, arthritis and chronic b/l lower extremity dermatitis w/ ulcerations who is s/p b/l salpingo-oophorectomy x1 month with leg pain, recent Hx of spasms of the arms and torso and altered mental status. P: Altered Mental Status: High suspicion of hepatic encephalopathy based upon Hx including recent missed dose of lactulose and presently elevated ammonia level. Reasonable suspicion of hypoglycemia due to Hx of DMII and recent fingerstick in the 50's. Reasonable suspicion of TIA due to Hx of TIA and concern for possible LE DVT. Reasonable suspicion for hypotension due to finding of hypotension in ED that was treated with fluid bolus. Low suspicion of infection. Head CT shows no acute changes Continue lactulose and rifaximin for hyperammonemia SBP prophylaxis not indicated at this time, MELD score is 10 HgbA1C 6.1 not suggestive on chronic hypoglycemia Morning cortisol level was slightly low at 8.44 Performed ACTH stimulation test - normal results Contiuing to hold pramipexole - adverse effect profile is concerning for several of patient's symptoms including hypotension, headache, dizziness and skin infections Discharge today - daughter to pickup this evening Outpatient follow-up appointments scheduled Endocrine: Sandro Galicia NP at Dr. Nick Keita's office, 02/21/19 1:00 PM GI: Dr. Justin Suarez, 02/27/19 1:45 PM PCP: Dr. Estrada [place], 03/07/19 10:45 AM LE Ulcerations: Chronic condition without satisfactory understanding of etiology Unable to complete LE doppler study from knees down due to patient discomfort despite lidocaine jelly and opioid analgesia Ordered moisturizing cream per wound consult recommendations DMII: Chronic condition Continue to closely monitor BG levels Ordered HgbA1C as above - not concerning for chronic hypoglycemia Continue existing insulin regimen, though currently no insulin being given due to low BG levels and hypoglycemic episodes Continue to hold glipizide due to hepatic metabolism and hypoglycemic episodes Pain: Chronic MSK pain Continue regular analgesia regimen - fentanyl and oxycodone as above Holding gabapentin to assess pain and RLS control without it due to family concerns about whether or not it is an effective medication for patient Patient to arrange f/u with pain clinic RLS: Chronic condition Holding pramiprexole and gabapentin as above Recommend discussion of alternative Tx with PCP if pramiprexole and / or gabapentin side effect profiles are ultimately deemed unacceptable
[2019-02-20] MEDS: Ferrous Sulfate TAB* 325 MG PO SCH (08:33)
[2019-02-20] MEDS: Pantoprazole TAB * 40 MG TAB PO SCH (08:33)
[2019-02-20] MEDS: RiFAXimin* 550 MG TAB PO SCH (08:33)
[2019-02-20] MEDS: Calcium Carbonate TAB* 1250 MG (CALCIUM 500 MG) PO SCH (08:33)
[2019-02-20] MEDS: Cholecalciferol TAB* 1000 UNITS PO SCH (08:33)
[2019-02-20] MEDS: Potassium Chlor TAB* 20 MEQ TAB.ER PO SCH ×2 (08:34→15:03)
[2019-02-20] MEDS: Baclofen TAB* 10 MG PO PRN (08:34)
[2019-02-20] MEDS: Lidocaine 2% JELLY* 6 ML JELLY TOPICAL SCH ×2 (08:39→16:12)
[2019-02-20] MEDS: Moisturizing CREAM* 120 GM JAR TOPICAL SCH (08:40)
[2019-02-20] MEDS ORDERED: Cosyntropin* 0.25 MG VIAL IV ONE (13:10)
[2019-02-20 15:00] VITALS: BP 108/72
--- NOTE | 2019-02-20 23:38 | DS ---
CC: Dr. Richmond; Dr. Suarez; Dr. Keita * DISCHARGE SUMMARY: DATE OF ADMISSION: 02/18/19 DATE OF DISCHARGE: 02/20/19 PRINCIPAL DISCHARGE DIAGNOSES: 1. Mild hepatic encephalopathy. 2. Hypoglycemia. 3. Hypotension. 4. Falls. SECONDARY DISCHARGE DIAGNOSES: 1. Chronic pain syndrome. 2. Headaches. 3. Cirrhosis. 4. Restless leg syndrome. MEDICATIONS: 1. KCL 20 mEq t.i.d. 2. Vitamin E 200 mg daily. 3. Cholecalciferol 2000 units every other day. 4. Ferrous sulfate 325 mg daily. 5. Alendronate 70 mg weekly. 6. Spironolactone 300 mg daily. 7. Lactulose 30 mL q.h.s. 8. Zinc 50 mg b.i.d. 9. Magnesium 64 mg daily. 10. Mirtazapine 30 mg q.h.s. 11. Oxycodone 10 mg q.4 to 6 p.r.n. pain. 12. Protonix 20 mg daily. 13. Ocuvite 1 cap daily. 14. Furosemide 120 mg daily. 15. Fentanyl patch 12 mcg transdermally q.72 hours. 16. Calcium carbonate 600 mg b.i.d. 17. Baclofen 10 mg q.6 p.r.n. spasm. 18. Paxil 30 mg q.h.s. PHYSICAL EXAM: Temperature 97.9, heart rate 90, respiratory rate 20, pulse ox 95% on room air, blood pressure 108/72. General: Alert, well-appearing female , in no distress, sitting in the recliner. HEENT: Pupils are equal, round, and reactive to light. No scleral icterus. Oral mucosa is moist. Neck: No JVP. No adenopathy. Chest: She is in a regular rate and rhythm with no murmurs. Her lungs are clear bilaterally. Abdomen: Protuberant. Her liver is palpable at the costal margin. She has no CVA tenderness. Extremities: She has 2+ lower extremity edema to the shins with hyperpigmented skin changes and crusted excoriated lesions with thick plaques over both shins. Her feet are warm. Neurologic: She has no asterixes. She is oriented x3. She has very appropriate thought process and good short-term recall. PERTINENT IMAGING ON THIS ADMISSION: An abdominal ultrasound performed on 02/18 showed small amount of ascites. A venous Doppler study showed no evidence of DVT in either lower extremities from the common femoral vein to the popliteal vein. Calf vessels could not be evaluated. A pelvis CT showed no definite fracture identified, though marked degenerative changes of the left hip is noted with subchondral cyst formation and lucent areas. Healing fracture of the inferior pubic ramus noted bilaterally. These were present on the previous exam in November 2018. A brain CT shows no acute intracranial abnormalities, unchanged right cerebral hemisphere encephalomalacia and mild chronic small vessel ischemic disease likely. HOSPITAL COURSE BY PROBLEM: 1. Hepatic encephalopathy. June was initially admitted from home after her daughter noted her to be forgetful and losing track of time. For example, she spent 2 hours getting ready in the shower and did not realize that she had taken that long. She had missed the dose of lactulose the day prior. She came to the emergency department, was found to have asterixes at the time of admission. She got extra dose of lactulose and by the time I saw her, the asterixes had resolved. She also complained of increased spasms and restless leg symptoms, which I suspect was also related to the encephalopathy. No other precipitating factor was found. She had no evidence of GI bleeding. No evidence of infection. While her abdominal exam was suspicious for ascites to me, an ultrasound showed only a small amount of ascites so paracentesis was not pursued. At the time of discharge, we are sending her home on her home dose of lactulose. 2. Hypoglycemia. She was noted to be hypoglycemic on the day 2 of admission on her home dose of insulin and glipizide. We thought this was likely related to glipizide's hepatic metabolism and held both her insulin and her glipizide; however, she had hypoglycemia again the following morning after being off of all diabetic medications for approximately 24 hours. So, she was observed for another night and after another 24 hours off of the medication, she had a normal blood sugar. We rechecked an A1c and it was 6.1 from this spring. She had no evidence of renal dysfunction. So, I suspect these changes are all related to her liver dysfunction. We are sending her home on no insulin, no glipizide and no acarbose. This can be reevaluated in the outpatient basis. We have arranged for a followup with Dr. Keita tomorrow. 3. Hypotension. She had several periods of unprovoked hypotension that occurred at different times of the day during her hospitalization. She was symptomatic at this time. They all resolved with 1 L of IV fluids. We held her diuretics while she was admitted and she felt better as soon as her blood pressure improved. Again, no evidence of infection was found. She did recently have a hysterectomy about a month ago and after the procedure, she noted to be volume overloaded, so her daughter reported that she had short course of increased diuretics. I doubt that this would cause this level of hypotension this much later, but there have been no other recent medication changes and no other explanation for her hypotension other than polypharmacy. We tested her for adrenal insufficiency. Her morning cortisol was mildly low, but an ACTH stim test showed appropriate increases after ACTH stimulation. We are restarting her furosemide and spironolactone tomorrow on 01/3119 after discharge and she will follow up closely with Dr. Suarez to evaluate her hemodynamics in the setting of cirrhosis. 4. Falls. June and her daughter reports several falls over the past couple of months, I think there are multiple factors that could be contributing to this. She is on a lot of pain medications and other medications that may be contributing to her falls on the Beers criteria. We discontinued pramipexole and gabapentin on this admission and continued her pain medications. She also has had hypoglycemia and while she has not noted any hypoglycemia at home, she does report that her falls often occur early in the morning and she does not check her blood sugar early in the morning. So, it is possible hypoglycemia is contributing to her falls. 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 Physical Therapy was consulted and recommended home PT, which has been arranged by case management. 5. Headaches. She was having persistent headaches and in the setting of falls and coagulopathy from liver disease, we got a CT head to rule out a subdural hematoma and it was negative. It showed only the cerebellar lesion as above. 6. Chronic pain syndrome. She follows with the pain clinic. She was continued on her home doses of oxycodone and fentanyl patch. 7. Restless leg syndrome. We discontinued her pramipexole due to the side effect profile and started her on iron. DISPOSITION: Ms. Syed is being discharged to home on 02/20/19 with her daughter. She has been arranged for home physical therapy. We have made followup appointments for her with Dr. Richmond at [facility], Dr. Suarez at [facility] [place] and Dr. Keita of [facility]. She is feeling very well at the time of discharge and agrees with this discharge plan. Reasons to return to hospital were reviewed with her and she has good comprehension of these plans. CONDITION AT THE TIME OF DISCHARGE: Stable. TIME SPENT: Fifty minutes was spent on this discharge. [id number]/CPS #: [id number] SHILA
== END 2019-02-20 17:50 | disposition home or self-care (01) ==
LOC: ED 22:07 → MED 02-18 04:08
PROVIDERS: ADMIT Internal Medicine; ATTEND Internal Medicine
DX: K72.90 Hepatic failure, unspecified without coma (principal); E11.649 Type 2 diabetes mellitus with hypoglycemia without coma; Z79.4 Long term (current) use of insulin; I95.9 Hypotension, unspecified; Z91.81 History of falling; M54.5 Low back pain; G89.29 Other chronic pain; K74.60 Unspecified cirrhosis of liver; G25.81 Restless legs syndrome; Z79.899 Other long term (current) drug therapy; Z86.73 Personal history of transient ischemic attack (TIA), and cerebral infarction without residual deficits; K70.30 Alcoholic cirrhosis of liver without ascites; F41.9 Anxiety disorder, unspecified; F32.9 Major depressive disorder, single episode, unspecified; Z87.891 Personal history of nicotine dependence; Z88.0 Allergy status to penicillin; Z88.2 Allergy status to sulfonamides; Z88.8 Allergy status to other drugs, medicaments and biological substances; M25.559 Pain in unspecified hip; M79.605 Pain in left leg; M79.604 Pain in right leg
CPT/HCPCS: 36415; 70450; 71045; 72192; 76705; 80053; 80307; 80320; 81003; 81015; 82024; 82105; 82140; 82533; 82728; 83036; 83540; 83550; 83605; 83735; 84443; 84484; 85025; 85610; 87086; 93005; 93970; 96360; 96361; 99284; A9270-GY; G0378; G0480; G8978-GP-CJ; G8979-GP-CI; J0834

== ENCOUNTER 2019-02-23 02:01 | Emergency (ER) | payer MEDICARE, OTHER ==
[2019-02-23] MEDS ORDERED: Bupivacaine 0.5% W/EPI SDV* 10 ML VIAL INJ ONE (02:42)
--- NOTE | 2019-02-23 02:42 | ED ---
Headache - HPI Summary HPI Summary: This patient is a 68 year old female accompanied by her daughter presenting to [facility] with a chief complaint of headache. She states the headache is on the right side of her head, and had became worse since its onset earlier this week. She denies blurred vision, n/v, and photophobia. She rates her pain 10/10 in severity. - History Of Current Complaint Chief Complaint: EDHeadache Stated Complaint: HEADACHE PER DAUGHTER Time Seen by Provider: 02/23/19 02:27 Hx Obtained From: Patient, Family/Back Up Scan Coordinator Onset/Duration: Started days ago - Allergies/Home Medications Allergies/Adverse Reactions: Allergies Allergy/AdvReac Type Severity Reaction Status Date / Time morphine Allergy Severe Anaphylatic Verified 02/23/19 02:07 Shock vancomycin Allergy Intermediate Rash And Verified 02/23/19 02:07 Itching lorazepam [From Ativan] Allergy See Comment Verified 02/23/19 02:07 meloxicam Allergy Rash Verified 02/23/19 02:07 Penicillins Allergy Swelling Verified 02/23/19 02:07 sulfamethoxazole Allergy Unknown Verified 02/23/19 02:07 [From Bactrim] Reaction Details trimethoprim [From Bactrim] Allergy Unknown Verified 02/23/19 02:07 Reaction Details acetaminophen [From Tylenol] AdvReac Unknown Verified 02/23/19 02:07 Reaction Details aspirin AdvReac CIRRHOSIS Verified 02/23/19 02:07 erythromycin base AdvReac Vomiting Verified 02/23/19 02:07 NSAIDS (Non-Steroidal AdvReac CIRRHOSIS Verified 02/23/19 02:07 Anti-Inflamma Sulfa (Sulfonamide AdvReac GI Upset Verified 02/23/19 02:07 Antibiotics) PMH/Surg Hx/FS Hx/Imm Hx Endocrine/Hematology History: Reports: Hx Diabetes Cardiovascular History: Denies: Hx Hypertension, Hx Pacemaker/ICD, Other Cardiovascular Problems/ Disorders Respiratory History: Denies: Hx Chronic Obstructive Pulmonary Disease (COPD) GI History: Reports: 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, Hx Gastroesophageal Reflux Disease, Other GI Disorders - Esophageal varices History: Denies: Hx Renal Disease Musculoskeletal History: Reports: Hx Arthritis, Hx Back Problems - lumbar fusion in 1990, Hx Orthopedic Injury - 04/18/18: Fx three ribs from a fall, Other Musculoskeletal History - Restless leg syndrome Denies: Hx Osteoporosis Sensory History: Reports: Hx Cataracts - bilat, Hx Contacts or Glasses Denies: Hx Hearing Aid Opthamlomology History: Reports: Hx Cataracts - bilat, Hx Contacts or Glasses Neurological History: Reports: Hx Transient Ischemic Attacks (TIA) Psychiatric History: Reports: Hx Anxiety, Hx Depression Denies: Hx Panic Disorder - Cancer History Hx Chemotherapy: No Hx Radiation Therapy: No - Surgical History Surgery Procedure, Year, and Place: LUMBAR SPINAL FUSION 1990, tonsillectomy. TUBAL LIGATION. WISDOM TEETH. DOLORES CATARACTS. PARTIAL HYSTERECTOM [facility] Hx Anesthesia Reactions: No Infectious Disease History: No Infectious Disease History: Denies: Hx of Known/Suspected MRSA, Traveled Outside the [place] in Last 30 Days - Family History Known Family History: Positive: Diabetes - Mother - Social History Alcohol Use: None Alcohol Amount: Hx ETOH abuse, none currently Hx Substance Use: No Substance Use Type: Reports: None Hx Tobacco Use: Yes - not currently Smoking Status (MU): Former Smoker Type: Cigarettes Amount Used/How Often: 5 CIGS/DAY Length of Time of Smoking/Using Tobacco: 30 years Have You Smoked in the Last Year: Yes Review of Systems Negative: Photophobia, Blurred Vision Negative: Vomiting, Nausea Positive: Headache All Other Systems Reviewed And Are Negative: Yes Physical Exam - Summary Physical Exam Summary: Appearance: Well-appearing, Well-nourished, lying in bed comfortable Skin: Warm, dry, no obvious rash Eyes: sclera anicteric, no conjunctival pallor ENT: mucous membranes moist Neck: deferred Respiratory: No signs of respiratory distress Cardiovascular: Appears well perfused, pulses are nml Abdomen: deferred Musculoskeletal: Moving all 4 extremities without obvious discomfort. Tenderness at the occipital prominence extending to the occiput. Neurological: Awake and alert, mentation is normal, speech is fluent and appropriate Psychiatric: affect is normal, does not appear anxious or depressed Triage Information Reviewed: Yes Vital Signs On Initial Exam: Initial Vitals Temp Pulse Resp BP Pulse Ox 98.7 F 97 20 104/64 97 02/23/19 02:03 02/23/19 02:03 02/23/19 02:03 02/23/19 02:03 02/23/19 02:03 Vital Signs Reviewed: Yes Procedures - Procedure Summary Procedure Summary: Occipital Nerve block bilaterally using 0.5% bupivicaine. - Sedation Patient Received Moderate/Deep Sedation with Procedure: No Diagnostics - Vital Signs Vital Signs Temp Pulse Resp BP Pulse Ox 02/23/19 02:03 98.7 F 97 20 104/64 97 - Laboratory Lab Statement: Any lab studies that have been ordered have been reviewed, and results considered in the medical decision making process. Headache Course/Dx - Course Course Of Treatment: This patient is a 68 year old female accompanied by her daughter presenting to [facility] with a chief complaint of headache. The patient was given an occipital nerve block bilaterally to help treat her headache with 0.5% bupivicaine. - Diagnoses Provider Diagnoses: Occipital neuralgia Discharge ED - Sign-Out/Discharge Documenting (check all that apply): Patient Departure - Discharge - Discharge Plan Condition: Good Disposition: HOME Patient Education Materials: Acute Headache (ED) Referrals: Estrada Richmond MD [Primary Care Provider] - Additional Instructions: I think you have a condition called occipital neuralgia, which usually responds to a nerve block, which I did tonight. If no better by tomorrow contact your doctor for a referral to a pain specialist as there are other procedures that can help with this. You can take your oxycodone in the meantime. - Billing Disposition and Condition Condition: GOOD Disposition: Home - Attestation Statements Document Initiated by Christ: Yes Documenting kSyibe: Maurilio Chase Provider For Whom Christ is Documenting (Include Credential): Jose Back MD Scribe Attestation: Maurilio Santoro, skyibed for Jose Back MD on 02/27/19 at 1807. Scribe Documentation Reviewed: Yes Provider Attestation: The documentation as recorded by the Maurilio senior accurately reflects the service I personally performed and the decisions made by me, Jose Back MD Status of Scribmatilde Document: Viewed
[2019-02-23] MEDS ORDERED: methylPREDNISolone ACETATE 40* 40 MG/ML 1 ML VIAL IM ONE (02:43)
[2019-02-23] MEDS ORDERED: Bupivacaine 0.5% W/EPI SDV* 30 ML VIAL INJ ONE (03:00)
[2019-02-23] MEDS ORDERED: Bupivacaine 0.5% SDV PF* 30ML VIAL INJ ONE (03:45)
[2019-02-23] MEDS ORDERED: oxyCODONE TAB* 5 MG TAB PO ONE (05:25)
[2019-02-23 06:12] VITALS: BP 115/74
== END 2019-02-23 05:00 | disposition home or self-care (01) ==
LOC: ED 02:01
DX: M54.81 Occipital neuralgia (principal); E11.9 Type 2 diabetes mellitus without complications; K21.9 Gastro-esophageal reflux disease without esophagitis; F41.9 Anxiety disorder, unspecified; F32.9 Major depressive disorder, single episode, unspecified; Z86.73 Personal history of transient ischemic attack (TIA), and cerebral infarction without residual deficits; Z87.891 Personal history of nicotine dependence; Z90.711 Acquired absence of uterus with remaining cervical stump; Z88.6 Allergy status to analgesic agent; Z88.1 Allergy status to other antibiotic agents; Z88.5 Allergy status to narcotic agent; Z88.0 Allergy status to penicillin; Z88.2 Allergy status to sulfonamides; Z88.8 Allergy status to other drugs, medicaments and biological substances
CPT/HCPCS: 99282; J1030; J3490

== ENCOUNTER 2019-02-24 11:25 | Observation (INO) | payer MEDICARE, OTHER ==
[2019-02-24 12:28] LABS: ABS Basophils 0.1 10^3/ul (0-0.2); ABS Eosinophils 0.1 10^3/ul (0-0.6); ABS Lymphocytes 0.8 10^3/ul (1.0-4.8); ABS Monocytes 0.8 10^3/ul (0-0.8); ABS Neutrophils 7.2 10^3/ul (1.5-7.7); Eosinophil % 1.4 %; Hematocrit 38 % (35-47); Hemoglobin 12.4 g/dL (12.0-16.0); Lymphocyte % 8.9 %; Mean Corpuscular HGB Conc 33 g/dL (31-36); Mean Corpuscular Hemoglobin 31 pg (27-31); Mean Corpuscular Volume 94 fL (80-97); Mean Platelet Volume 7.4 fL (7.4-10.4); Nucleated Red Blood Cells % 0.1; Platelet Count 180 10^3/uL (150-450); Red Blood Count 4.02 10^6 /uL (3.70-4.87); Red Cell Distribution Width 18 % (10-15); White Blood Count 9.1 10^3/uL (3.5-10.8)
--- NOTE | 2019-02-24 12:41 | ED ---
Headache - HPI Summary HPI Summary: Patient is a 68 y/o F presenting to the ED for a chief compliant of headache. Patient is present with her daughter. Patients daughter states that the patient has an unsteady gait, cannot stand up, and a tremor in the bilateral hands. Patient uses a walker. Patient was recently seen at [facility] on the morning of 02/23/19 for headache and neck pain, and was given a nerve block for the pain with some relief. Patient also had a brain CT at that time with unremarkable findings. Patient stopped taking Gabapentin on 02/19/[address] Rosenda Thomas recently. Patient also recently stopped taking diuretics which she was taking for a PMHx of liver problems. Patient has a PMHx of spinal stenosis and tailbone fracture. - History Of Current Complaint Chief Complaint: EDHeadache Stated Complaint: HEADACHE, TREMORS PER DAUGHTER Time Seen by Provider: 02/24/19 11:49 Hx Obtained From: Patient, Family/Inspector Salvage - Daughter Onset/Duration: Sudden Onset Initially Headache Was: Moderate Currently Pain Is: Moderate Timing: Hours Location of Headache: Diffuse Aggravating Factor: Nothing Allevating Factors: Medication - Nerve block Associated Signs And Symptoms: Neck Pain, Other (Noted In Comments) - Positive unstead gait, cannot stand up, tremor of the bilateral hands - Allergies/Home Medications Allergies/Adverse Reactions: Allergies Allergy/AdvReac Type Severity Reaction Status Date / Time morphine Allergy Severe Anaphylatic Verified 02/23/19 02:07 Shock vancomycin Allergy Intermediate Rash And Verified 02/23/19 02:07 Itching lorazepam [From Ativan] Allergy See Comment Verified 02/23/19 02:07 meloxicam Allergy Rash Verified 02/23/19 02:07 Penicillins Allergy Swelling Verified 02/23/19 02:07 sulfamethoxazole Allergy Unknown Verified 02/23/19 02:07 [From Bactrim] Reaction Details trimethoprim [From Bactrim] Allergy Unknown Verified 02/23/19 02:07 Reaction Details acetaminophen [From Tylenol] AdvReac Unknown Verified 02/23/19 02:07 Reaction Details aspirin AdvReac CIRRHOSIS Verified 02/23/19 02:07 erythromycin base AdvReac Vomiting Verified 02/23/19 02:07 NSAIDS (Non-Steroidal AdvReac CIRRHOSIS Verified 02/23/19 02:07 Anti-Inflamma Sulfa (Sulfonamide AdvReac GI Upset Verified 02/23/19 02:07 Antibiotics) PMH/Surg Hx/FS Hx/Imm Hx Previously Healthy: Yes Endocrine/Hematology History: Reports: Hx Diabetes Cardiovascular History: Denies: Hx Hypertension, Hx Pacemaker/ICD, Other Cardiovascular Problems/ Disorders Respiratory History: Denies: Hx Chronic Obstructive Pulmonary Disease (COPD) GI History: Reports: 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, Hx Gastroesophageal Reflux Disease, Other GI Disorders - Esophageal varices History: Denies: Hx Renal Disease Musculoskeletal History: Reports: Hx Arthritis, Hx Back Problems - lumbar fusion in 1990, Hx Orthopedic Injury - 04/18/18: Fx three ribs from a fall, Hx of Fracture(s) - Tailbone fracture, Other Musculoskeletal History - Restless leg syndrome Denies: Hx Osteoporosis Sensory History: Reports: Hx Cataracts - bilat, Hx Contacts or Glasses Denies: Hx Legally Blind, Hx Deafness, Hx Hearing Aid Opthamlomology History: Reports: Hx Cataracts - bilat, Hx Contacts or Glasses Denies: Hx Legally Blind EENT History: Denies: Hx Deafness Neurological History: Reports: Hx Transient Ischemic Attacks (TIA), Other Neuro Impairments/Disorders - Hx spinal stenosis Psychiatric History: Reports: Hx Anxiety, Hx Depression Denies: Hx Panic Disorder - Cancer History Hx Chemotherapy: No Hx Radiation Therapy: No - Surgical History Surgical History: Yes Surgery Procedure, Year, and Place: LUMBAR SPINAL FUSION 1990, tonsillectomy. TUBAL LIGATION. WISDOM TEETH. DOLORES CATARACTS. PARTIAL HYSTERECTOM 2018 [facility] Hx Anesthesia Reactions: No Infectious Disease History: No Infectious Disease History: Denies: Hx of Known/Suspected MRSA, Traveled Outside the [place] in Last 30 Days - Family History Known Family History: Positive: Diabetes - Mother - Social History Occupation: Unemployed Lives: With Family Alcohol Use: None Alcohol Amount: Hx ETOH abuse, none currently Hx Substance Use: No Substance Use Type: Reports: None Hx Tobacco Use: Yes - not currently Smoking Status (MU): Former Smoker Type: Cigarettes Amount Used/How Often: 5 CIGS/DAY Length of Time of Smoking/Using Tobacco: 30 years Have You Smoked in the Last Year: Yes Review of Systems Positive: Myalgia - Neck pain, Other - Positive unsteady gait Neurological: Other - Positive tremor in the bilatera hands Positive: Headache All Other Systems Reviewed And Are Negative: Yes Physical Exam - Summary Physical Exam Summary: Appearance: The patient is well-nourished in no acute distress and in no acute pain. Skin: The skin is warm and dry, and skin color reflects adequate perfusion. HEENT: The head is normocephalic and atraumatic. The pupils are equal and reactive. The conjunctivae are clear and without drainage. Nares are patent and without drainage. Mouth reveals moist mucous membranes, and the throat is without erythema and exudate. The external ears are intact. The ear canals are patent and without drainage. The tympanic membranes are intact. Neck: The neck is supple with full range of motion and non-tender. There are no carotid bruits. There is no neck vein distension. Respiratory: Chest is non-tender. Lungs are clear to auscultation and breath sounds are symmetrical and equal. Cardiovascular: Heart is regular rate and rhythm. There is no murmur or rub auscultated. There is no peripheral edema and pulses are symmetrical and equal. Abdomen: The abdomen is soft and non-tender. There are normal bowel sounds heard in all four quadrants and there is no organomegaly palpated. Musculoskeletal: There is no back tenderness noted. Extremities are non-tender with full range of motion. There is good capillary refill. There is no peripheral edema or calf tenderness elicited. Neurological: Patient is alert and oriented to person, place and time. The patient has symmetrical motor strength in all four extremities. Cranial nerves are grossly intact. Deep tendon reflexes are symmetrical and equal in all four extremities. No focal deficits. Astarixis. Psychiatric: The patient has an appropriate affect and does not exhibit any anxiety or depression. Triage Information Reviewed: Yes Vital Signs On Initial Exam: Initial Vitals Temp Pulse Resp BP Pulse Ox 98.4 F 90 18 135/75 90 02/24/19 11:27 02/24/19 11:27 02/24/19 11:27 02/24/19 11:27 02/24/19 11:27 Vital Signs Reviewed: Yes Procedures - Sedation Patient Received Moderate/Deep Sedation with Procedure: No Diagnostics - Vital Signs Vital Signs Temp Pulse Resp BP Pulse Ox 02/24/19 12:27 89 83 02/24/19 11:27 98.4 F 90 18 135/75 90 - Laboratory Lab Results: Lab Results 02/24/19 Range/Units 12:21 WBC 9.1 (3.5-10.8) 10^3/uL RBC 4.02 (3.70-4.87) 10^6 /uL Hgb 12.4 (12.0-16.0) g/dL Hct 38 (35-47) % MCV 94 (80-97) fL MCH 31 (27-31) pg MCHC 33 (31-36) g/dL RDW 18 H (10-15) % Plt Count 180 (150-450) 10^3/uL MPV 7.4 (7.4-10.4) fL Neut % (Auto) 80.0 % Lymph % (Auto) 8.9 % Fentress % (Auto) 8.6 % Eos % (Auto) 1.4 % Baso % (Auto) 1.1 % Absolute Neuts (auto) 7.2 (1.5-7.7) 10^3/ul Absolute Lymphs (auto) 0.8 L (1.0-4.8) 10^3/ul Absolute Monos (auto) 0.8 (0-0.8) 10^3/ul Absolute Eos (auto) 0.1 (0-0.6) 10^3/ul Absolute Basos (auto) 0.1 (0-0.2) 10^3/ul Absolute Nucleated RBC 0.0 10^3/ul Nucleated RBC % 0.1 Result Diagrams: 19 12:21 19 12:21 Lab Statement: Any lab studies that have been ordered have been reviewed, and results considered in the medical decision making process. Headache Course/Dx - Course Assessment/Plan: My impression is that this is part medication reaction and part occipital neuralgia. I had several interactions with the patient and her daughter. We will both frustrated by an inability to come to an agreement as to how to move forward with her symptoms. Her labs revealed that her ammonia level was down and were otherwise reasonable. Eventually I had asked the hospitalist consult on her to help with reasonable plan of attack. - Diagnoses Provider Diagnoses: Occipital neuralgia, Tremor, Myoclonic jerking - Physician Notifications Discussed Care Of Patient With: Galina Chaudhry - At 17:30, I spoke with Dr. Galina Chaudhry who reviewed the patients case for possible admission. Time Discussed With Above Provider: 17:30 Discharge ED - Sign-Out/Discharge Documenting (check all that apply): Patient Departure - Discharge Plan Condition: Stable Disposition: ADMITTED TO [facility] Referrals: Estrada Richmond MD [Primary Care Provider] - - Billing Disposition and Condition Condition: STABLE Disposition: Admitted to [facility] - Attestation Statements Document Initiated by Christ: Yes Documenting Scribe: Pushpa Sebastian Provider For Whom Christ is Documenting (Include Credential): Jose Shelton MD Scribe Attestation: Pushpa Santoro, adriibed for Jose Shelton MD on 02/24/19 at 1832. Scribe Documentation Reviewed: Yes Provider Attestation: The documentation as recorded by the Pushpa senior accurately reflects the service I personally performed and the decisions made by me, Jose Shelton MD Status of Scribe Document: Viewed
[2019-02-24 12:45] LABS: ALT 23 U/L (7-52); AST 39 U/L (13-39); Albumin 3.4 g/dL (3.2-5.2); Albumin/Globulin Ratio 0.7 (1-3); Anion Gap 9 mmol/L (2-11); BUN/Creatinine Ratio 18.5 (8-20); Blood Urea Nitrogen 15 mg/dL (6-24); CO2 Carbon Dioxide 19 mmol/L (22-32); Calcium 8.5 mg/dL (8.6-10.3); Chloride 104 mmol/L (101-111); EGFR African American 85.6 (>60); EGFR Non-African American 70.7 (>60); Glucose 99 mg/dL (70-100); Potassium 3.6 mmol/L (3.5-5.0); Sodium 132 mmol/L (135-145); Total Protein 8.4 g/dL (6.4-8.9)
[2019-02-24 13:03] LABS: Alkaline Phosphatase 194 U/L (34-104)
[2019-02-24 13:09] LABS: Acetaminophen < 15 mcg/mL; Alcohol < 10 mg/dL (<10); Salicylate < 2.50 mg/dL (<30)
[2019-02-24] MEDS ORDERED: oxyCODONE TAB* 5 MG TAB PO ONE (13:14)
[2019-02-24] MEDS ORDERED: clonazePAM TAB(*) 0.5 MG PO ONE (15:37)
[2019-02-24] MEDS ORDERED: fentaNYL PATCH 12 MCG/HR TRANSDERM SCH (19:00)
[2019-02-24] MEDS: fentaNYL Patch Check Q Shift 1 NOTE FOLLOW UP SCH (21:39)
[2019-02-24] MEDS: Analgesic BALM* 114 GM TOPICAL SCH (22:00)
[2019-02-24] MEDS: Heparin VIAL(*) 5000 UNITS/ML VIAL (FIVE THOUSAND) SUBCUT SCH (22:20)
--- NOTE | 2019-02-24 22:24 | HP ---
CC: Dr. Richmond * HISTORY AND PHYSICAL: DATE OF ADMISSION: 02/24/19 CHIEF COMPLAINT: Headache. HISTORY OF PRESENT ILLNESS: This is a 68-year-old woman who is well known to me from recent admission, who has history of cirrhosis and chronic pain syndrome , who comes to the emergency department today with a headache. The history began approximately 2 weeks ago when she developed headaches, which she does not typically have and they were daily "annoying" headaches on her occiput. She was admitted last week to my service with mild hepatic encephalopathy, which resolved after 1 dose of lactulose. She was complaining of daily headache at that time, and given her age and her mild coagulopathy, we ordered a CT head to rule out a chronic subdural bleed since she also has history of recent falls, but it was negative for intracranial bleed. When she was discharged, she still had a mild headache, but it was manageable and we did not change her pain medications during that admission except to discontinue her gabapentin with the thought that polypharmacy was contributing to some of her encephalopathy and myoclonus, which may have been considered asterixis. When she went home, she was doing okay until a few days ago when the headache got suddenly worse. Her daughter reports that she screamed out in pain with a headache and she described it as shooting pain on Monday morning at 0100. She came to the emergency department, Dr. Back attempted an occipital nerve block as described by her daughter, which did not help. Then later on Monday , the headache persisted and so they called [facility] and Dr. Sibley said to resume the gabapentin at 300 mg, so they tried 300 mg, which helped a little bit, so they tried 600 mg, after which they noticed that she was having the "flapping movements" again and so they brought her to the emergency department. In the emergency department, her ammonia is found to be lower than it was at discharge and Dr. Shelton attempted to give her clonazepam without any relief. She was able to walk in the emergency department without difficulty; however, her daughter and June herself feel unsafe to take her home due to uncontrolled pain and her daughter feels overwhelmed with her ability to take care of her, and so we will admit her for OBV for uncontrolled pain. Regarding the headache, she localizes the headache to the top of her head with some radiation down her neck and when her daughter rubs her neck it relieves it a little bit, but otherwise nothing has relieved the pain. It comes in waves and when it comes it lasts for approximately 5 minutes and causes her to scream in pain. She describes it as a sharp shooting pain and it resolves after a few minutes on its own. It has come and gone like this for approximately 3 days. She has no change in vision, no light or sound sensitivity, and she has had no recent falls. She has been walking with her walker as usual. PAST MEDICAL HISTORY: 1. 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 2. History of alcohol use disorder. She has been sober for years. 3. Diabetes; however, she was hypoglycemic on her last admission, so she is currently off of insulin. 4. History of esophageal varices, required banding. 5. Chronic pain syndrome. 6. Restless leg syndrome. 7. History of TIA. 8. Status post spinal fusion in 1992. 9. Recent pubic rami fractures. 10. History of cerebellar infarction. 11. Recent partial hysterectomy with salpingo-oophorectomy in December. MEDICATIONS: This is as per her discharge summary from 02/20/19: 1. KCl 20 mEq t.i.d. 2. Vitamin E 200 mg daily. 3. Cholecalciferol 2000 units every other day. 4. Ferrous sulfate 325 mg daily. 5. Alendronate 70 mg weekly. 6. Spironolactone 300 mg daily. 7. Lactulose 30 mL q.h.s. 8. Zinc 50 mg b.i.d. 9. Magnesium 64 mg daily. 10. Mirtazapine 30 mg q.h.s. 11. Oxycodone 10 mg q.4 to 6 hours p.r.n. pain. 12. Protonix 20 mg daily. 13. Ocuvite 1 cap daily. 14. Furosemide 120 mg daily. 15. Fentanyl patch 12 mcg transdermally q.72 hours. 16. Calcium carbonate 600 mg b.i.d. 17. Baclofen 10 mg q.6 h. p.r.n. spasms. 18. Paxil 30 mg q.h.s. FAMILY HISTORY: Her mom has diabetes. Her dad had emphysema. SOCIAL HISTORY: She lives with her daughter Keri in [place], who would be her surrogate decision maker. She is a former [id number]-rmge smoker. She has been sober from alcohol for 5 years. She ambulates independently with a walker. REVIEW OF SYSTEMS: As per the HPI. Remainder of the review of systems is negative. PHYSICAL EXAMINATION GENERAL: Elderly, chronically ill-appearing woman lying across the bed with her legs hanging off the bed and holding onto her head. VITAL SIGNS: Temperature 98.4, heart rate 87, respiratory rate 18, pulse ox 90 % on room air, blood pressure 135/75 initially and now 99/67. HEENT: Pupils are 3 mm bilaterally and reactive to light. Oral mucosa is very dry. Her head is exquisitely tender to palpation over the occiput and her paraspinal muscles of her neck are very tender and tight. CHEST: She is in a regular rate and rhythm with no murmurs. Her lungs are clear bilaterally. ABDOMEN: Distended and protuberant. She has caput medusae. EXTREMITIES: She has marked stasis dermatitis in bilateral lower extremities with no open wounds. NEUROLOGIC: There is no asterixis. She has occasional myoclonus of her upper extremities. SKIN: She has spider hemangiomas all over her chest. LABORATORY DATA: White blood cells 9.1, hemoglobin 12.4, platelets 180. Sodium 132, potassium 3.6, chloride 104, bicarb 19, BUN 15, creatinine 0.81, glucose 99, calcium 8.5, total bilirubin 1.3, alk phos 194. Ammonia 58. Troponin 0.00 ASSESSMENT AND PLAN: This is a 68-year-old woman with history of alcohol cirrhosis, chronic pain syndrome, restless leg syndrome with some recent medication changes, who presents to the emergency department with a headache and uncontrolled pain. 1. Headache and uncontrolled pain. Her headache seems consistent with either a tension headache or occipital neuralgia. I am not going to adjust her pain medicines as they are managed by the pain clinic and she is on a fentanyl patch and oxycodone. I will consult Pain Management in the morning to see if they have recommendations for dose adjustments versus nerve block as was attempted but seemed to be unsuccessful in the emergency department. I will get a CT of her neck to rule out degenerative changes in her neck, though she has no radicular symptoms. She may have changes that are causing a tension headache. I will not repeat a CT head at this time as it was negative last week when she was having headache as well and she has not had any recent falls, has no difficulty walking and no other red flags. 2. Cirrhosis. She does not appear decompensated. She has no evidence of encephalopathy. I am continuing her lactulose. I am holding her diuretics as she appeared profoundly dry on exam. She says she has not been taking p.o. due to the pain; however, her diuretics should be started as soon as possible. Her abdominal exam looks consistent with ascites; however, it looks the same as it did last week when we did an ultrasound and there was no ascites. 3. Chronic pain syndrome. As above, I am continuing her oxycodone and fentanyl. 4. Occasional myoclonus. I do not believe this is consistent with asterixis. I suspect that it is related to the gabapentin that she restarted yesterday after I discontinued it last week. I do not believe gabapentin is a good choice for her. I will continue to hold it and we will ask Pain Management to weigh in on this. 5. History of diabetes. We recently discontinued all of her diabetes medications and she is euglycemic at this time. 6. Stasis dermatitis. These look unchanged from prior and do not appear to be infected. Continue soap and water. 7. Restless leg syndrome. We discontinued her pramipexole last week as well due to side effect profile. 8. Disposition. Admit to [address] [place] [address] for observation and a Pain Management consult due to uncontrolled pain. 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 Her daughter assures me that she is comfortable caring for her in the correction , but simply feels overwhelmed right now. Please note that her medications have not yet been reconciled, so I have only ordered the pain medicines and this will need close followup tomorrow morning prior to discharge. [id number]/[facility] #: [id number] SHILA
[2019-02-25] MEDS: oxyCODONE TAB* 5 MG TAB PO PRN ×3 (01:05→14:29)
[2019-02-25] MEDS: Heparin VIAL(*) 5000 UNITS/ML VIAL (FIVE THOUSAND) SUBCUT SCH ×2 (06:25→12:49)
[2019-02-25] MEDS: fentaNYL Patch Check Q Shift 1 NOTE FOLLOW UP SCH (06:25)
[2019-02-25] MEDS: Analgesic BALM* 114 GM TOPICAL SCH (07:54)
[2019-02-25 11:33] VITALS: BP 121/60
--- NOTE | 2019-02-26 02:09 | DS ---
CC: Dr. Richmond * DISCHARGE SUMMARY: DATE OF ADMISSION: 02/24/19 DATE OF DISCHARGE: 02/25/19 PRIMARY CARE PROVIDER: Dr. Richmond. DISPOSITION ON DISCHARGE: Home. CONDITION ON DISCHARGE: Good. PRIMARY DIAGNOSIS: Tension headaches. SECONDARY DIAGNOSES: Include: 1. Cirrhosis secondary to past alcohol use disorder. 2. Diabetes. 3. History of esophageal varices. 4. Chronic pain syndrome. 5. Restless leg syndrome. 6. History of transient ischemic attack. MEDICATIONS ON DISCHARGE: Include: 1. Baclofen 10 mg every 6 hours as needed. 2. Ammonia lactate topically p.r.n. 3. Spironolactone 300 mg daily. 4. Potassium chloride 20 mEq 3 times a day. 5. Pantoprazole 20 mg daily. 6. Paroxetine 30 mg in the evening. 7. Mirtazapine 30 mg in the evening. 8. Magnesium chloride 71 to 119 mg daily. 9. Lactulose 30 mL at bedtime. 10. Furosemide 120 mg daily. 11. Ferrous sulfate 325 mg daily. 12. Cholecalciferol 2000 units every other day. 13. Calcium carbonate 600 mg twice daily. 14. Ocuvite Adult 50 Plus soft gel 1 cap daily. 15. Oxycodone 10 mg every 4 to 6 hours as needed for pain. 16. Fentanyl patch 12 mcg every 3 days. 17. Zinc 50 mg twice daily. 18. Vitamin E 200 units daily. 19. Urea 20% topically every other day. 20. Alendronate 70 mg weekly. 21. Gabapentin 300 mg every 6 hours. PERTINENT IMAGING: CT of cervical spine. Impression: Mild to moderate multilevel cervical spondylopathy causing canal stenosis at C3-C4 and C4-C5. No nerve root compression. PERTINENT LABORATORY DATA: Ammonia is 58. HISTORY OF PRESENT ILLNESS AND HOSPITAL COURSE: This is a 68-year-old female with past medical history as outlined in the history of present illness on the day of admission, recent admission to the hospital with cirrhosis and chronic pain, presented to the emergency room again with headache. Features as outlined in the history of present illness, predominantly right occipital, with attempted occipital nerve block in the emergency room, though it was not successful. Of note, the patient's medications were simplified on our last hospital stay including the discontinuation of gabapentin. It was re- instituted at full dose at home; however, pain continued to be uncontrolled. She was admitted primarily for uncontrolled pain into the hospital. This morning on the day of discharge, she still had right occipital pain, although she was noted to have slept through the night without difficulty. She received 10 mg of oxycodone and the pain completely dissipated within 15 minutes. I suspect the patient has tension headache, not occipital neuralgia in the setting of its prolonged painful event lasting hours to days and not sharp, stabbing, lasting seconds to minutes. She has multiple reasons to have had tension headache including recent hospital stays and changes in her medication, lack of sleep. She is improved with her home doses of medications and was discharged on 02/25/19 without complications. Reasons to return to the hospital included but not limited to recurrent or worsening symptoms including neurological phenomenon, unilateral weakness, paresthesias, dysarthria, changes in vision, loss of consciousness, near loss of consciousness, chest pain, shortness of breath, inability to obtain or tolerate medications discussed with the patient and her daughter; they acknowledged understanding. TIME SPENT: Greater than 45 minutes were spent on the discharge of this patient , greater than half of that was spent [id number] with the patient. [id number]/[facility] #: [id number] SHILA
== END 2019-02-25 16:00 | disposition home or self-care (01) ==
LOC: ED 11:25 → MED 18:02
PROVIDERS: ADMIT Internal Medicine; ATTEND Internal Medicine
DX: G44.209 Tension-type headache, unspecified, not intractable (principal); K70.30 Alcoholic cirrhosis of liver without ascites; F10.10 Alcohol abuse, uncomplicated; E11.9 Type 2 diabetes mellitus without complications; I85.00 Esophageal varices without bleeding; G89.4 Chronic pain syndrome; G25.81 Restless legs syndrome; Z86.73 Personal history of transient ischemic attack (TIA), and cerebral infarction without residual deficits; Z79.899 Other long term (current) drug therapy; Z90.710 Acquired absence of both cervix and uterus; Z87.891 Personal history of nicotine dependence; F41.9 Anxiety disorder, unspecified; F32.9 Major depressive disorder, single episode, unspecified; M54.2 Cervicalgia
CPT/HCPCS: 36415; 72125; 80053; 80320; 80329; 82140; 83605; 84484; 85025; 96372; 99284; A9270-GY; G0378; G0480; G8978-GP-CI; G8979-GP-CI; G8980-GP-CI; J1644

== ENCOUNTER 2019-07-11 19:07 | Inpatient (IN) | payer MEDICARE, OTHER ==
--- OUTSIDE RECORDS SUMMARY | 2019-07-11 19:26 | XMS REPORT | Continuity of Care Document ---
:1950 External Reference #:[id number] Author Name Kendrick Sibley MD Address [address] [place] [address] Care Team Providers Name Role Phone Justin Suarez MD - Care Team Information Registration Representative [phone] Gastroenterology [facility] - Pain Care Team Information Registration Representative [phone] [facility] Care Team Information Registration Representative [phone] Marcelino Murillo - Neurology Care Team Information Registration Representative [phone] Problems Active Problems Provider Date Cirrhosis of liver Estrada Richmond M.D. Onset: 01/18/2019 Type 2 diabetes mellitus Estrada Richmond M.D. Onset: 01/18/2019 Vitamin D deficiency Deonna Barnes M.D. Onset: 06/28/2013 Anxiety state Deonna Barnes M.D. Onset: 06/28/2013 Mixed hyperlipidemia Deonna Barnes M.D. Onset: 06/28/2013 Tobacco user Deonna Barnes M.D. Onset: 06/28/2013 Social History Type Date Description Comments Sex Unknown Tobacco Use Start: Unknown End: Former Cigarette Smoker Age 18 to approx Unknown 65. 1/4 ppd Smoking Status Reviewed: 06/15/19 Former Cigarette Smoker Age 18 to approx 65. 1/4 ppd ETOH Use Has consumed alcohol in quit Mar 2014 the past Recreational Drug Use Never Used Drugs Exercise Type/Frequency Does not exercise Allergies, Adverse Reactions, Alerts Active Allergies Reaction Severity Comments Date Penicillin "vertigo". Amox was ok 12/13/2002 Bactrim hair loss, red urine 08/21/2014 Meloxicam Leg edema Moderate 09/01/2016 Vancomycin Moderate red man 09/07/2017 Narcan 01/23/2019 Medications Active Medications SIG Qnty Indications Ordering Date Provider Wheeled Walker With Dx 25.552 Estrada Richmond, 06/06/2019 Seat M.D. Furosemide Take 1 & 1/2 135tabs Estrada Richmond, 04/02/2019 80mg Tablets Tablets By Mouth M.D. Every Day Paroxetine HCL 1 by mouth every 90tabs Estrada Richmond, 09/27/2018 40mg day M.D. Tablets Onetouch Verio Flex monitor insurance 1units Estrada Richmond, 03/12/2018 Bloodglucose will cover. dx M.D. Monitoring System code e11.9 w/Device Kit Onetouch Verio Use To Test Twice 200units Estrada Richmond, 03/12/2018 Strips Daily as Directed M.D. Onetouch Ultrasoft 2 every day and as 100units Estrada Richmond, 03/12/2018 Lancets needed M.D. Misc Potassium Chloride Take One Tablet By 90tabs Estrada Richmond, 03/04/2018 Tyra ER Mouth Three Times M.D. 20Meq Tablets A Day ER Ammonium Lactate apply to callous 280gm L03.116 Estrada Richmond, 02/25/2017 12% on feet every day M.D. Cream as needed Triamcinolone Apply To Affected 45units I87.2 Estrada Richmond, 12/22/2016 Acetonide Area(S) On Lower M.D. 0.5% Cream Legs Twice Daily In Addition To Moisturizer Alendronate Sodium take 1 tablet by 12tabs M48.48xA Estrada Richmond, 09/13/2016 70mg mouth once weekly M.D. Tablets on an empty stomach; drink a glass of water and remain upright for 1 hour without eating Calcium 600 Take One Tablet By 60tabs M48.48xA Estrada Richmond, 08/11/2016 600mg Mouth Twice A Day M.D. Tablets Zinc 1 po bid 30tabs Estrada Richmond, 01/08/2016 50mg Tablets M.D. Vitamin E 1 po qd Veronica Russo 08/21/2014 200Unit Storm, [employer] Capsules Slow-Mag 1 by mouth every 30tabs G25.81 Estrada Richmond, 08/21/2014 71.5-119mg day M.D. Tablets DR Ferrous Sulfate 1 by mouth twice 90tabs Estrada Richmond, 08/18/2014 every day M.D. 325(65Fe) mg Tablets Mirtazapine Take One Tablet By 30tabs F41.9 Estrada Richmond, 07/24/2014 30mg Mouth AT Bedtime M.D. Tablets Pantoprazole Sodium Take One Tablet By 30tabs R11.2 Estrada Richmond, 04/23/2014 Mouth Every Day M.D. 20mg Tablets DR Iraheta Adult 50+ Take one po daily 90caps Deonna M. 02/03/2014 Brandie Barnes Capsules Vitamin D-3 1 po qod 90tabs E55.9 Deonna M. 06/28/2013 2000Unit Brandie Barnes Tablets Oxycodone HCL take one tablet by 30tabs Cierra Lee, 10mg mouth every 4 to 6 [employer] Tablets hours as needed for pain Lactulose Take 30MLS By 946units Estrada Richmond, 10GM/15ML Mouth Up To Six M.D. Solution Times Daily Spironolactone take two tablets 180tabs Estrada Richmond, 100mg by mouth every day M.D. Tablets Baclofen Take One Tablet By 90tabs Estrada Richmond, 10mg Tablets Mouth Twice A Day M.D. as Needed; May Cause Sedation / Confusion Fentanyl apply 1 patch 10units Unknown 25mcg/HR every 72 hours Patches 72HR Xifaxan 1 po bid Unknown 200mg Tablets Pregabalin Take One Capsule Unknown 25mg By Mouth Three Capsules Times A Day Maximum Daily Dose 3 History Medications Furosemide by mouth every Estrada Richmond M.D. 02/27/2019 - 40mg day 04/02/2019 Tablets Gabapentin take 1 by mouth R25.2 Estrada Richmond M.D. 01/23/2019 - 300mg day 1, then 02/26/2019 Capsules twice a day day 2, then 1 by mouth three times a day Cephalexin 1 by mouth 21tabs L03.311 Estrada Richmond M.D. 01/23/2019 - 500mg three times a 02/26/2019 Tablets day x 7 days Medications Administered in Office Medication SIG Qnty Indications Ordering Provider Date Injection Ketorolac Tromethamine Kendrick Sibley MD 09/01/2017 Per 15 MG (Toradol) Injection Immunizations CPT Code Status Date Vaccine Lot # [id number] Given 06/08/2016 Hep B Vaccine Adult, 3 Dose age >20 yrs [id number] 90862 Given 06/08/2016 Hepatitis A, Adult [id number] 52920 Given 02/11/2016 Hep B Vaccine Adult, 3 Dose age >20 yrs [id number] 63910 Given 11/03/2015 Hep B Vaccine Adult, 3 Dose age >20 yrs [id number] 09110 Given 11/03/2015 Prevnar-13 Pneumococcal Conjugate Vaccine [id number] 19205 Given 11/03/2015 Hepatitis A, Adult [id number] 98489 Given 03/04/2015 Influenza Virus Vaccine, Quadrivalent, 3 Yr > [id number] Quad, Preserv Free 24685 Given 04/28/2014 Pneumovax 23 (PPSV23) 65+ years or high risk 2 to 64 year old 84481 Given 12/19/2012 Zoster Vaccine [id number] 53797 Given 05/17/2012 Tdap (Adacel) [id number] 11325 Given 08/08/2000 DT (Adult) 43853 Refused 01/23/2019 Influenza Virus Vaccine, Quadrivalent, 3 Yr > Quad , Preserv Free 16447 Refused 08/08/2017 Influenza Virus Vaccine, Quadrivalent, 3 Yr > Quad , Preserv Free 89417 Refused 06/06/2017 Influenza Virus Vaccine, Quadrivalent, 3 Yr > Quad , Preserv Free 30412 Refused 01/27/2017 [place] [id number] Refused 07/18/2016 Influenza Virus Vaccine, Quadrivalent, 3 Yr > Quad , Preserv Free [id number] Refused 02/16/2012 Influenza Vaccine-Preservative Free 3 Yrs And Above Vital Signs Date Vital Result Comment 06/19/2019 3:15pm Weight 155.00 lb Weight 70.308 kg BP Systolic 118 mmHg BP Diastolic 70 mmHg Heart Rate 110 /min Body Temperature 98.1 F Respiratory Rate 20 /min O2 % BldC Oximetry 98 % 06/15/2019 11:35am Weight 155.00 lb Weight 70.308 kg BP Systolic 130 mmHg BP Diastolic 74 mmHg Heart Rate 92 /min Body Temperature 98.2 F Respiratory Rate 18 /min O2 % BldC Oximetry 97 % Results Test Acquired Date Facility Test Result H/L Range Note Drug Screen 06/13/2019 [facility] Urine None None Urine Pain [phone] Hydrocodone Detected Detect Clinic Screen Urine Oxycodone Screen Presumptive Posi <SEE NOTE> Abnormal None Detect 1 Urine Fentanyl Screen Presumptive Posi <SEE NOTE> Abnormal None Detect 2 Urine Methadone Screen None Detected None Detect Urine Buprenorphine Screen None Detected None Detect Urine Amphetamine Screen None Detected None Detect Urine Barbiturates Screen None Detected None Detect Urine Benzodiazepine Screen None Detected None Detect Urine Cannabinoids Screen None Detected None Detect Urine Cocaine Screen None Detected None Detect Urine Opiates Screen Presumptive Posi <SEE NOTE> Abnormal None Detect 3 Urine Phencyclidine Screen None Detected None Detect 4 CBC Auto 04/12/2019 [facility] White Blood 4.7 10^3/ uL Normal 3.5-10.8 Diff [phone] Count Red Blood Count 3.99 10^6/uL Normal 3.70-4.87 Hemoglobin 11.9 g/dL Low 12.0-16.0 Hematocrit 36 % Normal 35-47 Mean Corpuscular Volume 90 fL Normal 80-97 Mean Corpuscular Hemoglobin 30 pg Normal 27-31 Mean Corpuscular HGB Conc 33 g/dL Normal 31-36 Red Cell Distribution Width 18 % High 10-15 Platelet Count 153 10^3/uL Normal 150-450 Mean Platelet Volume 7.7 fL Normal 7.4-10.4 Abs Neutrophils 3.4 10^3/uL Normal 1.5-7.7 Abs Lymphocytes 0.6 10^3/uL Low 1.0-4.8 Abs Monocytes 0.5 10^3/uL Normal 0-0.8 Abs Eosinophils 0.2 10^3/uL Normal 0-0.6 Abs Basophils 0.0 10^3/uL Normal 0-0.2 Abs Nucleated RBC 0.0 10^3/uL Granulocyte % 73.3 % Lymphocyte % 12.1 % Monocyte % 10.4 % Eosinophil % 3.3 % Basophil % 0.9 % Nucleated Red Blood Cells % 0.3 Comp Metabolic 04/12/2019 [facility] Sodium 134 mmol/ L Low 135-145 Panel [phone] Potassium 3.6 mmol/L Normal 3.5-5.0 Chloride 104 mmol/L Normal 101-111 Co2 Carbon Dioxide 23 mmol/L Normal 22-32 Anion Gap 7 mmol/L Normal 2-11 Glucose 180 mg/dL High 70-100 Blood Urea Nitrogen 14 mg/dL Normal 6-24 Creatinine 0.58 mg/dL Normal 0.51-0.95 BUN/Creatinine Ratio 24.1 High 8-20 Calcium 8.2 mg/dL Low 8.6-10.3 Total Protein 8.0 g/dL Normal 6.4-8.9 Albumin 3.2 g/dL Normal 3.2-5.2 Globulin 4.8 g/dL High 2-4 Albumin/Globulin Ratio 0.7 Low 1-3 Total Bilirubin 1.00 mg/dL Normal 0.2-1.0 Alkaline Phosphatase 208 U/L High 34-104 Alt 18 U/L Normal 7-52 Ast 30 U/L Normal 13-39 Egfr Non- 104.0 >60 Egfr 125.9 >60 5 CBC Auto 02/24/2019 [facility] White Blood 9.1 10^3/ uL Normal 3.5-10.8 Diff [phone] Count Red Blood Count 4.02 10^6/uL Normal 3.70-4.87 Hemoglobin 12.4 g/dL Normal 12.0-16.0 Hematocrit 38 % Normal 35-47 Mean Corpuscular Volume 94 fL Normal 80-97 Mean Corpuscular Hemoglobin 31 pg Normal 27-31 Mean Corpuscular HGB Conc 33 g/dL Normal 31-36 Red Cell Distribution Width 18 % High 10-15 Platelet Count 180 10^3/uL Normal 150-450 Mean Platelet Volume 7.4 fL Normal 7.4-10.4 Abs Neutrophils 7.2 10^3/uL Normal 1.5-7.7 Abs Lymphocytes 0.8 10^3/uL Low 1.0-4.8 Abs Monocytes 0.8 10^3/uL Normal 0-0.8 Abs Eosinophils 0.1 10^3/uL Normal 0-0.6 Abs Basophils 0.1 10^3/uL Normal 0-0.2 Abs Nucleated RBC 0.0 10^3/uL Granulocyte % 80.0 % Lymphocyte % 8.9 % Monocyte % 8.6 % Eosinophil % 1.4 % Basophil % 1.1 % Nucleated Red Blood Cells % 0.1 Laboratory test 02/24/2019 [facility] Lactic Acid 1.4 mmol/L Normal 0.5-2.0 6 finding [phone] Ammonia 58 mcmol/L High 16-53 Comp Metabolic 02/24/2019 [facility] Sodium 132 mmol/ L Low 135-145 Panel [phone] Potassium 3.6 mmol/L Normal 3.5-5.0 Chloride 104 mmol/L Normal 101-111 Co2 Carbon Dioxide 19 mmol/L Low 22-32 Anion Gap 9 mmol/L Normal 2-11 Glucose 99 mg/dL Normal 70-100 Blood Urea Nitrogen 15 mg/dL Normal 6-24 Creatinine 0.81 mg/dL Normal 0.51-0.95 BUN/Creatinine Ratio 18.5 Normal 8-20 Calcium 8.5 mg/dL Low 8.6-10.3 Total Protein 8.4 g/dL Normal 6.4-8.9 Albumin 3.4 g/dL Normal 3.2-5.2 Globulin 5.0 g/dL High 2-4 Albumin/Globulin Ratio 0.7 Low 1-3 Total Bilirubin 1.30 mg/dL High 0.2-1.0 Alt 23 U/L Normal 7-52 Ast 39 U/L Normal 13-39 Egfr Non- 70.7 >60 Egfr 85.6 >60 7 Alkaline Phosphatase 194 U/L High 34-104 Laboratory test 02/24/2019 [facility] Troponin-I (TnI ) 0.00 ng/mL <0.04 8 finding [phone] Acetaminophen < 15 g/mL 9 Alcohol < 10 mg/dL Normal <10 Salicylate < 2.50 mg/dL <30 CBC Auto 02/17/2019 [facility] White Blood 6.1 10^3/ uL Normal 3.5-10.8 Diff [phone] Count Red Blood Count 3.71 10^6/uL Normal 3.70-4.87 Hemoglobin 11.5 g/dL Low 12.0-16.0 Hematocrit 35 % Normal 35-47 Mean Corpuscular Volume 94 fL Normal 80-97 Mean Corpuscular Hemoglobin 31 pg Normal 27-31 Mean Corpuscular HGB Conc 33 g/dL Normal 31-36 Red Cell Distribution Width 19 % High 10-15 Platelet Count 167 10^3/uL Normal 150-450 Mean Platelet Volume 7.6 fL Normal 7.4-10.4 Abs Neutrophils 4.3 10^3/uL Normal 1.5-7.7 Abs Lymphocytes 0.8 10^3/uL Low 1.0-4.8 Abs Monocytes 0.8 10^3/uL Normal 0-0.8 Abs Eosinophils 0.1 10^3/uL Normal 0-0.6 Abs Basophils 0.1 10^3/uL Normal 0-0.2 Abs Nucleated RBC 0.0 10^3/uL Granulocyte % 71.5 % Lymphocyte % 12.7 % Monocyte % 12.4 % Eosinophil % 2.4 % Basophil % 1.0 % Nucleated Red Blood Cells % 0.0 Laboratory test 02/17/2019 [facility] Lactic Acid 1.3 mmol/L Normal 0.5-2.0 10 finding [phone] Urine Culture And 02/17/2019 [facility] Urine SEE RESULT 11 Sensitivities [phone] Culture BELOW Urinalysis 02/17/2019 [facility] Urine Color Yellow Profile [phone] Urine Appearance Clear Urine Specific [place] 1.012 Normal 1.010-1.030 Urine pH 6.0 Normal 5-9 Urine Urobilinogen Negative Negative Urine Ketones Negative Negative Urine Protein Negative Negative Urine Leukocytes Trace Abnormal Negative Urine Blood Negative Negative Urine Nitrite Negative Negative Urine Bilirubin Negative Negative Urine Glucose Negative Negative Urine White Blood Cell 2+(11-20/hpf) Abnormal Absent Urine Red Blood Cell Absent Absent Urine Bacteria Absent Absent Urine Squamous Epithelial Cell Present Abnormal Absent Urine Drug 02/17/2019 [facility] Urine None Detected None Detect SCR ED & [phone] Amphetamine Pain Clinic Screen Urine Barbiturates Screen None Detected None Detect Urine Benzodiazepine Screen None Detected None Detect Urine Cannabinoids Screen None Detected None Detect Urine Opiates Screen None Detected None Detect Urine Phencyclidine Screen None Detected None Detect 12 Urine Cocaine Screen None Detected None Detect Laboratory test 02/17/2019 [facility] Ammonia 86 mcmol/L High 16-53 finding [phone] Inr/Protime 02/17/2019 [facility] Inr 1.41 High 0.82-1.09 13 [phone] Basic Metabolic 02/04/2019 [facility] Sodium 135 mmol /L Normal 135-145 Panel [phone] Potassium 3.9 mmol/L Normal 3.5-5.0 Chloride 106 mmol/L Normal 101-111 Co2 Carbon Dioxide 18 mmol/L Low 22-32 Anion Gap 11 mmol/L Normal 2-11 Glucose 244 mg/dL High 70-100 Blood Urea Nitrogen 19 mg/dL Normal 6-24 Creatinine 1.06 mg/dL High 0.51-0.95 BUN/Creatinine Ratio 17.9 Normal 8-20 Calcium 8.0 mg/dL Low 8.6-10.3 Egfr Non- 51.9 >60 Egfr 62.8 >60 14 Laboratory test 01/30/2019 In House Lab Glucose By 235 High 78-110 finding [phone] Laboratory test 01/12/2019 [facility] Magnesium 2.5 mg/dL Normal 1.9-2.7 finding [phone] Alcohol < 10 mg/dL Normal <10 Comp Metabolic 01/12/2019 [facility] Sodium 134 mmol/ L Low 135-145 Panel [phone] Potassium 3.9 mmol/L Normal 3.5-5.0 Chloride 107 mmol/L Normal 101-111 Co2 Carbon Dioxide 20 mmol/L Low 22-32 Anion Gap 7 mmol/L Normal 2-11 Glucose 221 mg/dL High 70-100 Blood Urea Nitrogen 26 mg/dL High 6-24 Creatinine 1.03 mg/dL High 0.51-0.95 BUN/Creatinine Ratio 25.2 High 8-20 Calcium 7.8 mg/dL Low 8.6-10.3 Total Protein 7.5 g/dL Normal 6.4-8.9 Albumin 3.0 g/dL Low 3.2-5.2 Globulin 4.5 g/dL High 2-4 Albumin/Globulin Ratio 0.7 Low 1-3 Total Bilirubin 0.70 mg/dL Normal 0.2-1.0 Alkaline Phosphatase 163 U/L High 34-104 Alt 24 U/L Normal 7-52 Ast 32 U/L Normal 13-39 Egfr Non- 53.6 >60 Egfr 64.9 >60 15 Laboratory test 01/12/2019 [facility] Lactic Acid 1.7 mmol/L Normal 0.5-2.0 16 finding [phone] CBC Auto Diff 01/12/2019 [facility] White Blood 6.2 Normal 3.5-10.8 [phone] Count 10^3/uL Red Blood Count 3.51 10^6/uL Low 3.70-4.87 Hemoglobin 10.9 g/dL Low 12.0-16.0 Hematocrit 33 % Low 35-47 Mean Corpuscular Volume 93 fL Normal 80-97 Mean Corpuscular Hemoglobin 31 pg Normal 27-31 Mean Corpuscular HGB Conc 34 g/dL Normal 31-36 Red Cell Distribution Width 19 % High 10-15 Platelet Count 121 10^3/uL Low 150-450 Mean Platelet Volume 7.8 fL Normal 7.4-10.4 Abs Neutrophils 4.5 10^3/uL Normal 1.5-7.7 Abs Lymphocytes 0.7 10^3/uL Low 1.0-4.8 Abs Monocytes 0.8 10^3/uL Normal 0-0.8 Abs Eosinophils 0.1 10^3/uL Normal 0-0.6 Abs Basophils 0.1 10^3/uL Normal 0-0.2 Abs Nucleated RBC 0.0 10^3/uL Granulocyte % 73.6 % Lymphocyte % 10.6 % Monocyte % 12.4 % Eosinophil % 2.4 % Basophil % 1.0 % Nucleated Red Blood Cells % 0.0 Laboratory test 01/12/2019 [facility] Blood Culture SEE RESULT 17 finding [phone] BELOW Laboratory test 01/12/2019 [facility] Troponin-I 0.01 ng/mL <0.04 18 finding [phone] (TnI) Acetaminophen < 15 g/mL 19 Alcohol < 10 mg/dL Normal <10 TSH (Thyroid Stimulating Horm) 2.77 mcIU/mL Normal 0.34-5.60 Blood Culture SEE RESULT BELOW 20 Comp Metabolic 01/12/2019 [facility] Sodium 137 mmol/ L Normal 135-145 Panel [phone] Potassium 4.3 mmol/L Normal 3.5-5.0 Chloride 110 mmol/L Normal 101-111 Co2 Carbon Dioxide 20 mmol/L Low 22-32 Anion Gap 7 mmol/L Normal 2-11 Glucose 81 mg/dL Normal 70-100 Blood Urea Nitrogen 25 mg/dL High 6-24 Creatinine 0.88 mg/dL Normal 0.51-0.95 BUN/Creatinine Ratio 28.4 High 8-20 Calcium 8.0 mg/dL Low 8.6-10.3 Total Protein 7.7 g/dL Normal 6.4-8.9 Albumin 3.1 g/dL Low 3.2-5.2 Globulin 4.6 g/dL High 2-4 Albumin/Globulin Ratio 0.7 Low 1-3 Total Bilirubin 1.20 mg/dL High 0.2-1.0 Alkaline Phosphatase 154 U/L High 34-104 Alt 25 U/L Normal 7-52 Ast 34 U/L Normal 13-39 Egfr Non- 64.3 >60 Egfr 77.8 >60 21 CBC Auto 01/12/2019 [facility] White Blood 5.7 10^3/ uL Normal 3.5-10.8 Diff [phone] Count Red Blood Count 3.63 10^6/uL Low 3.70-4.87 Hemoglobin 11.3 g/dL Low 12.0-16.0 Hematocrit 34 % Low 35-47 Mean Corpuscular Volume 93 fL Normal 80-97 Mean Corpuscular Hemoglobin 31 pg Normal 27-31 Mean Corpuscular HGB Conc 34 g/dL Normal 31-36 Red Cell Distribution Width 19 % High 10-15 Platelet Count 130 10^3/uL Low 150-450 Mean Platelet Volume 7.6 fL Normal 7.4-10.4 Abs Neutrophils 3.8 10^3/uL Normal 1.5-7.7 Abs Lymphocytes 1.0 10^3/uL Normal 1.0-4.8 Abs Monocytes 0.6 10^3/uL Normal 0-0.8 Abs Eosinophils 0.2 10^3/uL Normal 0-0.6 Abs Basophils 0.1 10^3/uL Normal 0-0.2 Abs Nucleated RBC 0.0 10^3/uL Granulocyte % 67.7 % Lymphocyte % 16.9 % Monocyte % 10.7 % Eosinophil % 3.7 % Basophil % 1.0 % Nucleated Red Blood Cells % 0.0 Inr/Protime 01/12/2019 [facility] Inr 1.37 High 0.82-1.09 22 [phone] Laboratory test 01/12/2019 [facility] Lactic 2.7 Critical 0.5-2.0 23 finding [phone] Acid mmol/L high 1 Presumptive Positive Presumptive positive results are unconfirmed. 2 Presumptive Positive Presumptive positive results are unconfirmed. 3 Presumptive Positive Presumptive positive results are unconfirmed. 4 The specimen was tested at the listed cutoffs: Drug Class Test level (ng/mL) Hydrocodone 300 Oxycodone 100 Fentanyl 1 Methadone 150 Buprenorphine 5 Amphetamines 500 Barbiturates 200 Benzodiazepines 200 Cocaine 150 Cannabinoids 50 Opiates 300 PCP 25 Specimen was received without chain of custody. Results should be used for medical purposes only. 5 Because ethnic data is not always readily available, this report includes an eGFR for both -Americans and non- Americans. The National Kidney Disease Education Program (NKDEP) does not endorse the use of the MDRD equation for patients that are not between the ages of 18 and 70, are , have extremes of body size, muscle mass, or nutritional status, or are non- or non-. According to the National Kidney Foundation, irrespective of diagnosis, the stage of the disease is based on the level of kidney function: Stage Description GFR(mL/min/1.73 m(2)) 1 Kidney damage with normal or decreased GFR 90 2 Kidney damage with mild decrease in GFR 60-89 3 Moderate decrease in GFR 30-59 4 Severe decrease in GFR 15-29 5 Kidney failure <15 (or dialysis) 6 [facility] Severe Sepsis and Septic Shock Management Bundle Measure requires all lactic acids initially measuring >2.0 mmol/L be repeated. 7 Because ethnic data is not always readily available, this report includes an eGFR for both -Americans and non- Americans. The National Kidney Disease Education Program (NKDEP) does not endorse the use of the MDRD equation for patients that are not between the ages of 18 and 70, are , have extremes of body size, muscle mass, or nutritional status, or are non- or non-. According to the National Kidney Foundation, irrespective of diagnosis, the stage of the disease is based on the level of kidney function: Stage Description GFR(mL/min/1.73 m(2)) 1 Kidney damage with normal or decreased GFR 90 2 Kidney damage with mild decrease in GFR 60-89 3 Moderate decrease in GFR 30-59 4 Severe decrease in GFR 15-29 5 Kidney failure <15 (or dialysis) 8 Troponin-I testing on Plasma Separator Tubes (PST) has a known false positive rate of 0.20-0.40%. All positive troponins reflex immediately to secondary confirmatory testing. Using the [employer] DxI 800 Access Immunoassay systems, the 99th percentile upper reference limit was demonstrated to be < 0.03 ng/mL. 9 Therapeutic concentration: <50 ug/mL Toxic concentration: >120 ug/mL 10 [facility] Severe Sepsis and Septic Shock Management Bundle Measure requires all lactic acids initially measuring >2.0 mmol/L be repeated. 11 SEE RESULT BELOW Name: ISAIAS SALEH : [address]: Cornelia Montano DO Acct: [id number] Unit: [id number] AGE: 68 Location: [place] [address] Re02/18/19 SEX: F Status: ADM Ana María SPEC: [id number] DENITA: 02/17/[address]: Trish Michaels MD REQ: [id number] RECD: 02/17/19 STATUS: COMP OTHR DR: Estrada Richmond MD _ SOURCE: URINE SPDESC: ORDERED: Urine Culture Procedure Result Reported Site Urine Culture Final 02/19/19- 0855 ML No Growth (<1,000 CFU/mL) * ML - Main Lab . END OF REPORT DEPARTMENT OF PATHOLOGY, [address] [place] [address] Miguel Angel Michel M.D. Director [facility] # [id number] 12 The urine specimen was tested at the listed cutoffs: Drug class test level (ng/mL) Amphetamines 500 Barbiturates 200 Benzodiazepine metabolites 200 Cocaine metabolites 150 Cannabinoids 50 Opiates 300 Pcp 25 Specimen was received without chain of custody. Results should be used for medical purposes only. 13 Standard intensity warfarin therapeutic range: 2.0-3.0 High intensity warfarin therapeutic range: 2.5-3.5 14 Because ethnic data is not always readily available, this report includes an eGFR for both -Americans and non- Americans. The National Kidney Disease Education Program (NKDEP) does not endorse the use of the MDRD equation for patients that are not between the ages of 18 and 70, are , have extremes of body size, muscle mass, or nutritional status, or are non- or non-. According to the National Kidney Foundation, irrespective of diagnosis, the stage of the disease is based on the level of kidney function: Stage Description GFR(mL/min/1.73 m(2)) 1 Kidney damage with normal or decreased GFR 90 2 Kidney damage with mild decrease in GFR 60-89 3 Moderate decrease in GFR 30-59 4 Severe decrease in GFR 15-29 5 Kidney failure <15 (or dialysis) 15 Because ethnic data is not always readily available, this report includes an eGFR for both -Americans and non- Americans. The National Kidney Disease Education Program (NKDEP) does not endorse the use of the MDRD equation for patients that are not between the ages of 18 and 70, are , have extremes of body size, muscle mass, or nutritional status, or are non- or non-. According to the National Kidney Foundation, irrespective of diagnosis, the stage of the disease is based on the level of kidney function: Stage Description GFR(mL/min/1.73 m(2)) 1 Kidney damage with normal or decreased GFR 90 2 Kidney damage with mild decrease in GFR 60-89 3 Moderate decrease in GFR 30-59 4 Severe decrease in GFR 15-29 5 Kidney failure <15 (or dialysis) 16 [facility] Severe Sepsis and Septic Shock Management Bundle Measure requires all lactic acids initially measuring >2.0 mmol/L be repeated. 17 SEE RESULT BELOW Name: ISAIAS SALEH Eliseo : [address]: Trish Michaels MD Acct: [id number] Unit: [id number] AGE: 68 Location: ED Re01/12/19 SEX: F Status: REG ER SPEC: [id number] DENITA: 01/12/[address] [facility] [address]: Trish Michaels MD REQ: [id number] RECD: 01/12/19 STATUS: BENNETT MOREIRA DR: Estrada Richmond MD _ SOURCE: BLOOD,[facility]: ORDERED: Blood Cult Procedure Result Reported Site Aerobic Culture Bottle Final 01/17/191648 ML No Growth Day 5 Anaerobic Culture Bottle Final 01/17/191648 ML No Growth Day 5 * ML - Main Lab . END OF REPORT DEPARTMENT OF PATHOLOGY, [address] [place] [address] Miguel Angel Michel M.D. Director [facility] # [id number] 18 Troponin-I testing on Plasma Separator Tubes (PST) has a known false positive rate of 0.20-0.40%. All positive troponins reflex immediately to secondary confirmatory testing. Using the [employer] DxI 800 Access Immunoassay systems, the 99th percentile upper reference limit was demonstrated to be < 0.03 ng/mL. 19 Therapeutic concentration: <50 ug/mL Toxic concentration: >120 ug/mL 20 SEE RESULT BELOW Name: ISAIAS SALEH : [address]: Trish Michaels MD Acct: [id number] Unit: [id number] AGE: 68 Location: ED Re01/12/19 SEX: F Status: REG ER SPEC: [id number] DENITA: 01/12/[address] [facility] [address]: Trish Michaels MD REQ: [id number] RECD: 01/12/19 STATUS: RES OTHR DR: Estrada Richmond MD _ SOURCE: BLOOD,VENO SPDESC: ORDERED: Blood Cult Procedure Result Reported Site Aerobic Culture Bottle Preliminary 01/13/191648 ML No Growth Day 1 Anaerobic Culture Bottle Preliminary 01/13/191648 ML No Growth Day 1 * ML - Main Lab . END OF REPORT DEPARTMENT OF PATHOLOGY, [address] [place] [address] Miguel Angel Michel M.D. Director [facility] # [id number] 21 Because ethnic data is not always readily available, this report includes an eGFR for both -Americans and non- Americans. The National Kidney Disease Education Program (NKDEP) does not endorse the use of the MDRD equation for patients that are not between the ages of 18 and 70, are , have extremes of body size, muscle mass, or nutritional status, or are non- or non-. According to the National Kidney Foundation, irrespective of diagnosis, the stage of the disease is based on the level of kidney function: Stage Description GFR(mL/min/1.73 m(2)) 1 Kidney damage with normal or decreased GFR 90 2 Kidney damage with mild decrease in GFR 60-89 3 Moderate decrease in GFR 30-59 4 Severe decrease in GFR 15-29 5 Kidney failure <15 (or dialysis) 22 Standard intensity warfarin therapeutic range: 2.0-3.0 High intensity warfarin therapeutic range: 2.5-3.5 23 Critical Result LACT:2.[address] MICHAELS at: 17:14:02 by:[id number] Read back by:DR. MICHAELS [facility] Severe Sepsis and Septic Shock Management Bundle Measure requires all lactic acids initially measuring >2.0 mmol/L be repeated. Procedures Description No Information Available Medical Devices Description No Information Available Encounters Type Date Location Provider Dx Diagnosis Office Visit 06/15/2019 Main Office Angela Abdul NP S06.0x0A Concussion without 11:15a loss of consciousness, initial encounter W18.12xA Fall from or off toilet w strike against object, init Office Visit 05/28/2019 3:15p [facility] Estrada Richmond M.D. R07.89 Other chest pain L20.9 Atopic dermatitis, unspecified Office Visit 04/02/2019 3:15p [facility] Estrada Richmond, E11.9 Type 2 diabetes M.D. mellitus without complications K74.69 Other cirrhosis of liver L29.9 Pruritus, unspecified M54.2 Cervicalgia M25.552 Pain in left hip Office Visit 02/27/2019 3:30p Main Office Estrada Richmond M.D. G25.81 Restless legs syndrome K74.69 Other cirrhosis of liver E11.9 Type 2 diabetes mellitus without complications Office Visit 01/30/2019 11:30a Main Office Saleem Prakash03.311 Cellulitis of M.D. abdominal wall E11.9 Type 2 diabetes mellitus without complications Office Visit 01/23/2019 11:45a Main Office Saleem Prakash03.311 Cellulitis of M.D. abdominal wall Assessments Date Code Description Provider 07/10/2019 M87.851 Other osteonecrosis, right femur Kendrick Sibley MD 06/19/2019 M54.32 Sciatica, left side Estrada Richmond M.D. 06/15/2019 S06.0x0A Concussion without loss of consciousness, Angela Abdul NP initial encounter 06/15/2019 W18.12xA Fall from or off toilet with subsequent Angela Abdul NP striking against object, initial encounter 05/28/2019 R07.89 Other chest pain Estrada Richmond M.D. 05/28/2019 L20.9 Atopic dermatitis, unspecified Estrada Richmond M.D. 04/02/2019 E11.9 Type 2 diabetes mellitus without Estrada Richmond M.D. complications 04/02/2019 K74.69 Other cirrhosis of liver Estrada Richmond M.D. 04/02/2019 L29.9 Pruritus, unspecified Estrada Richmond M.D. 04/02/2019 M54.2 Cervicalgia Estrada Richmond M.D. 04/02/2019 M25.552 Pain in left hip Estrada Richmond M.D. 02/27/2019 G25.81 Restless legs syndrome Estrada Richmond M.D. 02/27/2019 K74.69 Other cirrhosis of liver Estrada Richmond M.D. 02/27/2019 E11.9 Type 2 diabetes mellitus without Estrada Richmond M.D. complications 01/30/2019 L03.311 Cellulitis of abdominal wall Estrada Richmond M.D. 01/30/2019 E11.9 Type 2 diabetes mellitus without Estrada Richmond M.D. complications 01/23/2019 L03.311 Cellulitis of abdominal wall Estrada Richmond M.D. Plan of Treatment 07/10/2019 - Kendrick Sibley, MDM87.851 Other osteonecrosis, right femurFollow up:REfer to orthopedics for avascular necrosis of the femoral head. Functional Status Functional Condition Comment Date Status Glasses Active Mental Status Description No Information Available Referrals Refer to Reason for Referral Status Appt Date [facility] REFERRAL TO: [facility] for Left Sciatica Created 00/00 /0000 Pain PLEASE CONTACT PT TO SCHEDULE APPT. PLEASE FAX APPOINTMENT DATE/TIME TO [facility] @ [phone]. PLEASE SEND CONSULT NOTE TO [facility] @ [phone]. [address] [place] [address] [phone]
--- OUTSIDE RECORDS SUMMARY | 2019-07-11 19:26 | XMS REPORT | Continuity of Care Document ---
:1950 External Reference #:[id number] Author Name Angela Abdul NP Address [address] [place] [address] Care Team Providers Name Role Phone Justin Suarez MD - Care Team Information [facility] [phone] [facility] - Pain Care Team Information [facility] [phone] [facility] Care Team Information [facility] [phone] Marcelino Murillo - Neurology Care Team Information [facility] [phone] Problems Active Problems Provider Date Cirrhosis of [...] 1 po qd Veronica Russo 08/21/2014 [employer] [employer]-C Capsules Slow-Mag 1 by mouth every 30tabs G25.81 Estrada Richmond, 08/21/2014 71.5-119mg day M.D. Tablets DR Ferrous Sulfate 1 by mouth twice 90tabs Estrada Richmond 08/18/2014 every day M.D. 325(65Fe) mg Tablets [...] Lee, 10mg mouth every 4 to 6 SPARES SCHEDULER Tablets hours as needed for pain Lactulose Take 30MLS By 946units Estrada Richmond, 10GM/15ML Mouth Up To Six M.D. Solution Times Daily Spironolactone take two tablets 180tabs Estrada Richmond, 100mg by mouth every day M.D. Tablets Baclofen Take One Tablet By 60tabs Estrada Richmond, 10mg Tablets Mouth Twice A [...] Ordering Provider Date Injection Ketorolac Tromethamine Kendrick Heetderks, MD 09/01/2017 Per 15 MG (Toradol) Injection Immunizations CPT Code Status Date Vaccine Lot # [id number] Given 06/08/2016 Hep B Vaccine Adult, 3 Dose age >20 yrs [id number] 35816 Given 06/08/2016 Hepatitis A, Adult [id number] 18149 Given 02/11/2016 Hep B Vaccine Adult, 3 Dose age >20 yrs [id number] 98014 Given 11/03/2015 Hep B Vaccine Adult, 3 Dose age >20 yrs [id number] 21789 Given 11/03/2015 Prevnar-13 Pneumococcal Conjugate Vaccine [id number] 10649 Given 11/03/2015 Hepatitis A, Adult [id number] 59374 Given 03/04/2015 Influenza Virus Vaccine, Quadrivalent, 3 Yr > [id number] Quad, Preserv Free 16069 Given 04/28/2014 Pneumovax 23 (PPSV23) 65+ years or high risk 2 to 64 year old 21045 Given 12/19/2012 Zoster Vaccine [id number] 20298 Given 05/17/2012 Tdap (Adacel) [id number] 96547 Given 08/08/2000 DT (Adult) 19079 Refused 01/23/2019 Influenza Virus Vaccine, Quadrivalent, 3 Yr > Quad , Preserv Free 39316 Refused 08/08/2017 Influenza Virus Vaccine, Quadrivalent, 3 Yr > Quad , Preserv Free 94683 Refused 06/06/2017 Influenza Virus Vaccine, Quadrivalent, 3 Yr > Quad , Preserv Free 69350 Refused 01/27/2017 [place] [address] Refused 07/18/2016 Influenza Virus Vaccine, Quadrivalent, 3 Yr > Quad , Preserv Free 41350 Refused 02/16/2012 Influenza Vaccine-Preservative Free 3 Yrs And Above Vital Signs Date Vital Result Comment 06/15/2019 11:35am Weight 155.00 lb Weight 70.308 kg BP Systolic 130 mmHg BP Diastolic 74 mmHg Heart Rate 92 /min Body Temperature 98.2 F Respiratory Rate 18 /min O2 % BldC Oximetry 97 % 05/28/2019 3:19pm Heart Rate 92 /min Body Temperature 97.5 F Respiratory Rate 20 /min Results Test Acquired Date Facility Test Result H/L Range Note Drug Screen 06/13/2019 [facility] Urine None None Urine Pain [phone] Hydrocodone Detected Detect Clinic Screen Urine Oxycodone [...] Detected None Detect 4 CBC Auto 04/12/2019 [facility] White Blood 4.7 10^3/ uL Normal 3.5-10.8 Diff [phone] Count Red Blood Count 3.99 10^6/uL Normal [...] Blood Cells % 0.3 Comp Metabolic 04/12/2019 [facility] Sodium 134 mmol/ L Low 135-145 Panel [phone] Potassium 3.6 mmol/L Normal 3.5-5.0 Chloride 104 [...] Non- 104.0 >60 Egfr 125.9 >60 5 Laboratory test 02/24/2019 [facility] Troponin-I (TnI ) 0.00 ng/mL <0.04 6 finding [phone] Acetaminophen < 15 g/mL 7 Alcohol < 10 mg/dL Normal <10 Salicylate < 2.50 mg/dL <30 CBC Auto 02/24/2019 [facility] White Blood 9.1 10^3/ uL Normal 3.5-10.8 Diff [phone] Count Red Blood Count 4.02 10^6/uL Normal [...] Blood Cells % 0.1 Laboratory test 02/24/2019 [facility] Lactic Acid 1.4 mmol/L Normal 0.5-2.0 8 finding [phone] Ammonia 58 mcmol/L High 16-53 Comp Metabolic 02/24/2019 [facility] Sodium 132 mmol/ L Low 135-145 Panel [phone] Potassium 3.6 mmol/L Normal 3.5-5.0 Chloride 104 [...] Egfr Non- 70.7 >60 Egfr 85.6 >60 9 Alkaline Phosphatase 194 U/L High 34-104 CBC Auto 02/17/2019 [facility] White Blood 6.1 10^3/ uL Normal 3.5-10.8 Diff [phone] Count Red Blood Count 3.71 10^6/uL Normal [...] % Nucleated Red Blood Cells % 0.0 Urine Culture And 02/17/2019 [facility] Urine Culture SEE RESULT 10 Sensitivities [phone] BELOW Urinalysis Profile 02/17/2019 [facility] Urine Color Yellow [phone] Urine Appearance Clear Urine Specific [place] 1.012 Normal 1.010-1.030 Urine pH 6.0 Normal [...] Cell Present Abnormal Absent Urine Drug 02/17/2019 [facility] Urine None Detected None Detect SCR ED & [phone] Amphetamine Pain Clinic Screen Urine Barbiturates Screen None Detected None Detect Urine Benzodiazepine Screen None Detected None Detect Urine Cannabinoids Screen None Detected None Detect Urine Opiates Screen None Detected None Detect Urine Phencyclidine Screen None Detected None Detect 11 Urine Cocaine Screen None Detected None Detect Laboratory test 02/17/2019 [facility] Ammonia 86 mcmol/L High 16-53 finding [phone] Inr/Protime 02/17/2019 [facility] Inr 1.41 High 0.82-1.09 12 [phone] Laboratory test 02/17/2019 [facility] Lactic Acid 1.3 mmol/L Normal 0.5-2.0 13 finding [phone] Basic Metabolic 02/04/2019 [facility] Sodium 135 mmol /L Normal 135-145 Panel [phone] Potassium 3.9 mmol/L Normal 3.5-5.0 Chloride 106 [...] finding [phone] Moniter Laboratory test 01/12/2019 [facility] Magnesium 2.5 mg/dL Normal 1.9-2.7 finding [phone] Alcohol < 10 mg/dL Normal <10 Comp Metabolic 01/12/2019 [facility] Sodium 134 mmol/ L Low 135-145 Panel [phone] Potassium 3.9 mmol/L Normal 3.5-5.0 Chloride 107 [...] Egfr 64.9 >60 15 Laboratory test 01/12/2019 [facility] Lactic Acid 1.7 mmol/L Normal 0.5-2.0 16 finding [phone] CBC Auto Diff 01/12/2019 [facility] White Blood 6.2 Normal 3.5-10.8 [phone] Count 10^3/uL Red Blood Count 3.51 10^6/uL [...] Blood Cells % 0.0 Laboratory test 01/12/2019 [facility] Blood Culture SEE RESULT 17 finding [phone] BELOW Laboratory test 01/12/2019 [facility] Troponin-I 0.01 ng/mL <0.04 18 finding [phone] (TnI) Acetaminophen < 15 g/mL 19 Alcohol < 10 mg/dL Normal <10 TSH (Thyroid Stimulating Horm) 2.77 mcIU/mL Normal 0.34-5.60 Blood Culture SEE RESULT BELOW 20 Comp Metabolic 01/12/2019 [facility] Sodium 137 mmol/ L Normal 135-145 Panel [phone] Potassium 4.3 mmol/L Normal 3.5-5.0 Chloride 110 [...] Egfr 77.8 >60 21 CBC Auto 01/12/2019 [facility] White Blood 5.7 10^3/ uL Normal 3.5-10.8 Diff [phone] Count Red Blood Count 3.63 10^6/uL Low [...] Red Blood Cells % 0.0 Inr/Protime 01/12/2019 [facility] Inr 1.37 High 0.82-1.09 22 [phone] Laboratory test 01/12/2019 [facility] Lactic 2.7 Critical 0.5-2.0 23 finding [phone] Acid mmol/L high 1 Presumptive Positive Presumptive [...] 5 Kidney failure <15 (or dialysis) 6 Troponin-I testing on Plasma Separator Tubes (PST) has a known false positive rate of 0.20-0.40%. All positive troponins reflex immediately to secondary confirmatory testing. Using the [employer] DxI 800 Access Immunoassay systems, the 99th percentile upper reference limit was demonstrated to be < 0.03 ng/mL. 7 Therapeutic concentration: <50 ug/mL Toxic concentration: >120 ug/mL 8 [place] Severe Sepsis and Septic Shock Management Bundle Measure requires all lactic acids initially measuring >2.0 mmol/L be repeated. 9 Because ethnic data is not always readily [...] 15-29 5 Kidney failure <15 (or dialysis) 10 SEE RESULT BELOW Name: ISAIAS SALEH : [address]: Cornelia Montano DO Acct: [id number] Unit: [id number] AGE: 68 Location: [place] [address] Re02/18/19 SEX: F Status: ADM Ana Maraí SPEC: [id number] DENITA: 02/17/[address] [facility] [address]: Trish Michaels MD REQ: [id number] RECD: 02/17/19 STATUS: BENNETT MOREIRA DR: Estrada Richmond MD _ SOURCE: URINE SPDESC: ORDERED: Urine Culture Procedure Result Reported Site Urine Culture Final 02/19/19- 0855 ML No Growth (<1,000 CFU/mL) * ML - Main Lab . END OF REPORT DEPARTMENT OF PATHOLOGY, [address] [place] [address] Miguel Angel Michel M.D. Director [facility] # [id number] 11 The urine specimen was tested at the listed cutoffs: Drug class test level (ng/mL) Amphetamines 500 Barbiturates 200 Benzodiazepine metabolites 200 Cocaine metabolites 150 Cannabinoids 50 Opiates 300 Pcp 25 Specimen was received without chain of custody. Results should be used for medical purposes only. 12 Standard intensity warfarin therapeutic range: 2.0-3.0 High intensity warfarin therapeutic range: 2.5-3.5 13 [facility] Severe Sepsis and Septic Shock Management Bundle Measure requires all lactic acids initially measuring >2.0 mmol/L be repeated. 14 Because ethnic data is not always [...] 5 Kidney failure <15 (or dialysis) 16 [facility] Severe Sepsis and Septic Shock Management Bundle Measure requires all lactic acids initially measuring >2.0 mmol/L be repeated. 17 SEE RESULT BELOW Name: ISAIAS SALEH : [address]: Trish Michaels MD Acct: [id number] Unit: [id number] AGE: 68 Location: ED Re01/12/19 SEX: F Status: REG ER SPEC: [id number] DENITA: 01/12/[address] [facility] [address]: Trish Michaels MD REQ: [id number] RECD: 01/12/19 STATUS: BENNETT MOREIRA DR: Estrada Richmond MD _ SOURCE: BLOOD,[facility]ENO [facility]: ORDERED: Blood Cult Procedure Result Reported Site Aerobic Culture Bottle Final 01/17/19- 1648 ML No Growth Day 5 Anaerobic Culture Bottle Final 01/17/19- 1648 ML No Growth Day 5 * ML - Main Lab . END OF REPORT DEPARTMENT OF PATHOLOGY, [address] [place] [address] Miguel Angel Michel M.D. Director [facility] # [id number] 18 Troponin-I testing on Plasma Separator Tubes (PST) has a known false positive rate of 0.20-0.40%. All positive troponins reflex immediately to secondary confirmatory testing. Using the [employer] 800 Access Immunoassay systems, the 99th percentile upper reference limit was demonstrated to be < 0.03 ng/mL. 19 Therapeutic concentration: <50 ug/mL Toxic concentration: >120 ug/mL 20 SEE RESULT BELOW Name: ISAIAS SALEH : [address]: Trish Michaels MD Acct: [id number] Unit: [id number] AGE: 68 Location: ED Re01/12/19 SEX: F Status: REG ER SPEC: [id number] DENITA: 01/12/[address]: Trish Michaels MD REQ: [id number] RECD: 01/12/19 STATUS: RES OTHR DR: Estrada Richmond MD _ SOURCE: BLOOD,VENO SPDESC: ORDERED: Blood Cult Procedure Result Reported Site Aerobic Culture Bottle Preliminary 01/13/191648 ML No Growth Day 1 Anaerobic Culture Bottle Preliminary 01/13/191648 ML No Growth Day 1 * ML - Main Lab . END OF REPORT DEPARTMENT OF PATHOLOGY, [address] [place] [address] Miguel Angel Michel M.D. Director [facility] # [id number] 21 Because ethnic data is not always [...] LACT:2.[address] MICHAELS at: 17:14:02 by:[id number] Read back by:DR. MICHAELS [facility] Severe Sepsis and Septic Shock Management Bundle Measure requires all lactic acids initially measuring >2.0 mmol/L be repeated. Procedures Date Code Description Status 01/09/2019 96849 EKG, at Least 12 Leads w/Interpretation and Report Completed Medical Devices Description No Information Available Encounters Type Date Location Provider Dx Diagnosis Office Visit 05/28/2019 Mallory Richmond M.D. R07.89 Other chest pain 3:15p L20.9 Atopic dermatitis, unspecified Office Visit 04/02/2019 3:15p Mallory Richmond, E11.9 Type 2 diabetes M.D. mellitus without complications K74.69 Other cirrhosis of liver L29.9 Pruritus, unspecified M54.2 Cervicalgia M25.552 Pain in left hip Office Visit 02/27/2019 3:30p Main Office Estrada Richmond M.D. G25.81 Restless legs syndrome K74.69 Other cirrhosis of liver E11.9 Type 2 diabetes mellitus without complications Office Visit 01/30/2019 11:30a Main Office Estrada Richmond L03.311 Cellulitis of M.D. abdominal wall E11.9 Type 2 diabetes mellitus without complications Office Visit 01/23/2019 11:45a Main Office Saleem Prakash03.311 Cellulitis of M.D. abdominal wall Office Visit 01/09/2019 11:15a Main Office Estrada Richmond Z01.818 Encounter for other M.D. preprocedural examination N83.209 Unspecified ovarian cyst, unspecified side Office Visit 12/26/2018 3:30p Main Office Estrada Richmond, N83.209 Unspecified ovarian M.D. cyst, unspecified side Assessments Date Code Description Provider 06/15/2019 S06.0x0A Concussion without loss of consciousness, Angela Abdul, MARGUERITE initial encounter 05/28/2019 R07.89 Other chest pain Estrada Richmond M.D. 05/28/2019 L20.9 Atopic dermatitis, unspecified Estrada Richmond M.D. 04/02/2019 E11.9 Type 2 diabetes mellitus without complications Estrada Richmond M.D. 04/02/2019 K74.69 Other cirrhosis of liver Estrada Richmond M.D. 04/02/2019 L29.9 Pruritus, unspecified Estrada Richmond M.D. 04/02/2019 M54.2 Cervicalgia Estrada Richmond M.D. 04/02/2019 M25.552 Pain in left hip Estrada Richmond M.D. 02/27/2019 G25.81 Restless legs syndrome Estrada Richmond M.D. 02/27/2019 K74.69 Other cirrhosis of liver Estrada Richmond M.D. 02/27/2019 E11.9 Type 2 diabetes mellitus without complications Estrada Richmond M.D. 01/30/2019 L03.311 Cellulitis of abdominal wall Estrada Richmond M.D. 01/30/2019 E11.9 Type 2 diabetes mellitus without complications Estrada Richmond M.D. 01/23/2019 L03.311 Cellulitis of abdominal wall Estrada Richmond M.D. 01/09/2019 Z01.818 Encounter for other preprocedural examination Estrada Richmond M.D. 01/09/2019 N83.209 Unspecified ovarian cyst, unspecified side Estrada Richmond M.D. 12/26/2018 N83.209 Unspecified ovarian cyst, unspecified side Estrada Richmond M.D. Plan of Treatment Future Appointment(s):07/03/2019 3:45 pm - Estrada Richmond M.D. at Main [place]/15 - Angela Abdul, NPS06.0x0A Concussion without loss of consciousness, initial encounter Functional Status Functional Condition Comment Date Status Glasses Active Mental Status Description No Information Available Referrals Refer to Reason for Referral Status Appt Date [facility] Referral to [facility]. - - Closed 01/04 Please contact Pt to schedule appt. - - Please fax appointment date/time to [facility], . Gynecologic Oncology [address], [address] [place] [address] [phone]
--- OUTSIDE RECORDS SUMMARY | 2019-07-11 19:26 | XMS REPORT | Continuity of Care Document ---
:1950 External Reference #:[id number] Author Name Estrada Richmond M.D. Address [address] [place] [address] Care Team Providers Name Role Phone Justin Suarez MD - Care Team Information Cream Separator Operator [phone] [facility] - Pain Care Team Information Cream Separator Operator [phone] [facility] Care Team Information Cream Separator Operator [phone] Marcelino Murillo - Neurology Care Team Information Cream Separator Operator [phone] Problems Active Problems Provider Date Cirrhosis of [...] Unknown 63. 1/4 ppd Smoking Status Reviewed: 05/28/19 Former Cigarette Smoker Age 18 to approx [...] Medications SIG Qnty Indications Ordering Date Provider Furosemide Take 1 & 1/2 135tabs Estrada Richmond, 04/02/2019 80mg Tablets Tablets By Mouth M.D. Every Day Paroxetine HCL 1 by mouth every 90tabs Estrada Richmond, 09/27/2018 40mg day M.D. Tablets Onetouch Verio Flex monitor insurance 1units Estrada Yi, 03/12/2018 Bloodglucose will cover. dx M.D. Monitoring [...] every day M.D. Cream as needed Triamcinolone apply to affected 45gm I87.2 Estrada Richmond, 12/22/2016 Acetonide area on lower legs M.D. 0.5% Cream twice a day in addition to moisturizer Alendronate Sodium take 1 tablet by 12tabs [...] M.D. Vitamin E 1 po qd Veronica Finnegan. 08/21/2014 200Unit HAFSA Deng-Ralf Capsules Slow-Mag 1 by mouth every 30tabs G25.81 Estrada Richmond, 08/21/2014 71.5-119mg day M.D. Tablets DR Ferrous Sulfate 1 by mouth twice 90tabs Estrada Richmond, 08/18/2014 every day M.D. 325(65Fe) mg Tablets Mirtazapine Take One Tablet By 30tabs F41.9 Estrada Richmond, 07/24/2014 30mg Mouth AT Bedtime M.DVarsha Tablets Pantoprazole Sodium Take One Tablet By 30tabs R11.2 Estrada Richmond, 04/23/2014 Mouth Every Day M.D. 20mg Tablets DR Iraheta Adult 50+ Take one po daily 90caps Deonna M. 02/03/2014 Brandie Barnes Capsules Vitamin D-3 1 po qod 90tabs E55.9 Deonna M. 06/28/2013 2000Unit Brandie Barnes Tablets Oxycodone HCL take one tablet by 30tabs Cierra Lee, 10mg mouth every 4 to 6 LEGAL BILLER Tablets hours as needed for pain Lactulose [...] every Estrada Richmond M.D. 02/27/2019 - 40mg Tablets day 04/02/2019 Gabapentin take 1 by R25.2 Estrada Richmond M.D. 01/23/2019 - 300mg mouth day 1, 02/26/2019 Capsules then twice a day day 2, then 1 by mouth three times a day Cephalexin 1 by mouth 21tabs L03.311 Estrada Richmond M.D. 01/23/2019 - 500mg three times a 02/26/2019 Tablets day x 7 days Doxycycline Hyclate 1 tab by mouth 28tabs L03.113 Veronica Russo 11/29/2018 - twice a day HELGA Deng 01/08/2019 100mg Tablets Medications Administered in Office Medication SIG Qnty Indications Ordering Provider Date Injection Ketorolac Tromethamine Kendrick Sibley MD 09/01/2017 Per 15 MG (Toradol) Injection Immunizations CPT Code Status Date Vaccine Lot # [id number] Given 06/08/2016 Hep B Vaccine Adult, 3 Dose age >20 yrs [id number] 31760 Given 06/08/2016 Hepatitis A, Adult [id number] 16881 Given 02/11/2016 Hep B Vaccine Adult, 3 Dose age >20 yrs [id number] 05158 Given 11/03/2015 Hep B Vaccine Adult, 3 Dose age >20 yrs [id number] 80690 Given 11/03/2015 Prevnar-13 Pneumococcal Conjugate Vaccine [id number] 63359 Given 11/03/2015 Hepatitis A, Adult [id number] 76849 Given 03/04/2015 Influenza Virus Vaccine, Quadrivalent, 3 Yr > [id number] Quad, Preserv Free 59126 Given 04/28/2014 Pneumovax 23 (PPSV23) 65+ years or high risk 2 to 64 year old 42391 Given 12/19/2012 Zoster Vaccine [id number] 99207 Given 05/17/2012 Tdap (Adacel) [id number] 79727 Given 08/08/2000 DT (Adult) 94355 Refused 01/23/2019 Influenza Virus Vaccine, Quadrivalent, 3 Yr > Quad , Preserv Free 95422 Refused 08/08/2017 Influenza Virus Vaccine, Quadrivalent, 3 Yr > Quad , Preserv Free 27973 Refused 06/06/2017 Influenza Virus Vaccine, Quadrivalent, 3 Yr > Quad , Preserv Free 38077 Refused 01/27/2017 [place] [id number] Refused 07/18/2016 Influenza Virus Vaccine, Quadrivalent, 3 Yr > Quad , Preserv Free 86379 Refused 02/16/2012 Influenza Vaccine-Preservative Free 3 Yrs And Above Vital Signs Date Vital Result Comment 05/28/2019 3:19pm Heart Rate 92 /min Body Temperature 97.5 F Respiratory Rate 20 /min 05/28/2019 3:17pm BP Systolic 120 mmHg BP Diastolic 70 mmHg Heart Rate 92 /min Body Temperature 97.8 F Results Test Acquired Date Facility Test Result H/L Range Note CBC Auto 04/12/2019 [facility] White Blood 4.7 10^3/ uL Normal 3.5-10.8 Diff [phone] Count Red Blood Count 3.99 10^6/uL Normal [...] Blood Cells % 0.3 Comp Metabolic 04/12/2019 [facility] Sodium 134 mmol/ L Low 135-145 Panel [phone] Potassium 3.6 mmol/L Normal 3.5-5.0 Chloride 104 [...] Egfr Non- 104.0 >60 Egfr 125.9 >60 1 Laboratory test 02/24/2019 [facility] Troponin-I (TnI ) 0.00 ng/mL <0.04 2 finding [phone] Acetaminophen < 15 g/mL 3 Alcohol < 10 mg/dL Normal <10 Salicylate < 2.50 mg/dL <30 CBC Auto 02/24/2019 [facility] White Blood 9.1 10^3/ uL Normal 3.5-10.8 Diff [phone] Count Red Blood Count 4.02 10^6/uL Normal [...] % Nucleated Red Blood Cells % 0.1 Comp Metabolic 02/24/2019 [facility] Sodium 132 mmol/ L Low 135-145 Panel [phone] Potassium 3.6 mmol/L Normal 3.5-5.0 Chloride 104 [...] Egfr Non- 70.7 >60 Egfr 85.6 >60 4 Alkaline Phosphatase 194 U/L High 34-104 Laboratory test 02/24/2019 [facility] Lactic Acid 1.4 mmol/L Normal 0.5-2.0 5 finding [phone] Ammonia 58 mcmol/L High 16-53 Urine Culture And 02/17/2019 [facility] Urine Culture SEE RESULT 6 Sensitivities [phone] BELOW Urinalysis Profile 02/17/2019 [facility] Urine Color Yellow [phone] Urine Appearance Clear Urine Specific [place]ford 1.012 Normal 1.010-1.030 Urine pH 6.0 Normal [...] Cell Present Abnormal Absent Urine Drug 02/17/2019 [facility] Urine None Detected None Detect SCR ED & [phone] Amphetamine Pain Clinic Screen Urine Barbiturates Screen None Detected None Detect Urine Benzodiazepine Screen None Detected None Detect Urine Cannabinoids Screen None Detected None Detect Urine Opiates Screen None Detected None Detect Urine Phencyclidine Screen None Detected None Detect 7 Urine Cocaine Screen None Detected None Detect Laboratory test 02/17/2019 [facility] Ammonia 86 mcmol/L High 16-53 finding [phone] Inr/Protime 02/17/2019 [facility] Inr 1.41 High 0.82-1.09 8 [phone] Laboratory test 02/17/2019 [facility] Lactic Acid 1.3 mmol/L Normal 0.5-2.0 9 finding [phone] CBC Auto Diff 02/17/2019 [facility] White Blood 6.1 10^3/uL Normal 3.5-10.8 [phone] Count Red Blood Count 3.71 10^6/uL Normal [...] % Nucleated Red Blood Cells % 0.0 Basic Metabolic 02/04/2019 [facility] Sodium 135 mmol /L Normal 135-145 Panel [phone] Potassium 3.9 mmol/L Normal 3.5-5.0 Chloride 106 mmol/L Normal 101-111 Co2 Carbon Dioxide 18 mmol/L Low 22-32 Anion Gap 11 mmol/L Normal 2-11 Glucose 244 mg/dL High 70-100 Blood Urea Nitrogen 19 mg/dL Normal 6-24 Creatinine 1.06 mg/dL High 0.51-0.95 BUN/Creatinine Ratio 17.9 Normal 8-20 Calcium 8.0 mg/dL Low 8.6-10.3 Egfr Non- 51.9 >60 Egfr 62.8 >60 10 Laboratory test 01/30/2019 [facility] Glucose By 235 High 78-110 finding [phone] Moniter Laboratory test 01/12/2019 [facility] Lactic Acid 2.7 Critical 0.5-2.0 11 finding [phone] mmol/L high Inr/Protime 01/12/2019 [facility] Inr 1.37 High 0.82-1.09 12 [phone] Laboratory test 01/12/2019 [facility] Magnesium 2.5 Normal 1.9-2.7 finding [phone] mg/dL Alcohol < 10 mg/dL Normal <10 Comp Metabolic 01/12/2019 [facility] Sodium 134 mmol/ L Low 135-145 Panel [phone] Potassium 3.9 mmol/L Normal 3.5-5.0 Chloride 107 [...] Egfr Non- 53.6 >60 Egfr 64.9 >60 13 Laboratory test 01/12/2019 [facility] Lactic Acid 1.7 mmol/L Normal 0.5-2.0 14 finding [phone] CBC Auto Diff 01/12/2019 [facility] White Blood 6.2 Normal 3.5-10.8 [phone] Count 10^3/uL Red Blood Count 3.51 10^6/uL [...] Blood Cells % 0.0 Laboratory test 01/12/2019 [facility] Blood Culture SEE RESULT 15 finding [phone] BELOW Laboratory test 01/12/2019 [facility] Troponin-I 0.01 ng/mL <0.04 16 finding [phone] (TnI) Acetaminophen < 15 g/mL 17 Alcohol < 10 mg/dL Normal <10 TSH (Thyroid Stimulating Horm) 2.77 mcIU/mL Normal 0.34-5.60 Blood Culture SEE RESULT BELOW 18 Comp Metabolic 01/12/2019 [facility] Sodium 137 mmol/ L Normal 135-145 Panel [phone] Potassium 4.3 mmol/L Normal 3.5-5.0 Chloride 110 [...] Egfr Non- 64.3 >60 Egfr 77.8 >60 19 CBC Auto 01/12/2019 [facility] White Blood 5.7 10^3/ uL Normal 3.5-10.8 Diff [phone] Count Red Blood Count 3.63 10^6/uL Low [...] % Nucleated Red Blood Cells % 0.0 Urinalysis Profile 12/04/2018 [facility] Urine Color Yellow [phone] Urine Appearance Clear Urine Specific Radford 1.017 Normal 1.010-1.030 Urine pH 6.0 Normal 5-9 Urine Urobilinogen Negative Negative Urine Ketones Negative Negative Urine Protein Negative Negative Urine Leukocytes Negative Negative Urine Blood Negative Negative * * Abnormal Negative 20 Urine Nitrite Negative Negative Urine Bilirubin Negative Negative Urine Glucose Negative Negative Laboratory test 12/04/2018 [facility] Amylase 23 U/L Low 29-103 finding [phone] Lipase 81 U/L Normal 11.0-82.0 C Reactive Protein 75.53 mg/L High <8.01 Lactic Acid 1.1 mmol/L Normal 0.5-2.0 21 Comp Metabolic 12/04/2018 [facility] Sodium 130 mmol/ L Low 135-145 Panel [phone] Potassium 4.5 mmol/L Normal 3.5-5.0 Chloride 103 mmol/L Normal 101-111 Co2 Carbon Dioxide 20 mmol/L Low 22-32 Anion Gap 7 mmol/L Normal 2-11 Glucose 136 mg/dL High 70-100 Blood Urea Nitrogen 23 mg/dL Normal 6-24 Creatinine 0.75 mg/dL Normal 0.51-0.95 BUN/Creatinine Ratio 30.7 High 8-20 Calcium 9.2 mg/dL Normal 8.6-10.3 Total Protein 9.0 g/dL High 6.4-8.9 Albumin 3.4 g/dL Normal 3.2-5.2 Globulin 5.6 g/dL High 2-4 Albumin/Globulin Ratio 0.6 Low 1-3 Total Bilirubin 1.10 mg/dL High 0.2-1.0 Alkaline Phosphatase 184 U/L High 34-104 Alt 29 U/L Normal 7-52 Ast 38 U/L Normal 13-39 Egfr Non- 77.6 >60 Egfr 93.8 >60 22 CBC Auto 12/04/2018 [facility] White Blood 6.8 10^3/ uL Normal 3.5-10.8 Diff [phone] Count Red Blood Count 4.26 10^6/uL Normal 3.70-4.87 Hemoglobin 13.6 g/dL Normal 12.0-16.0 Hematocrit 40 % Normal 35-47 Mean Corpuscular Volume 94 fL Normal 80-97 Mean Corpuscular Hemoglobin 32 pg High 27-31 Mean Corpuscular HGB Conc 34 g/dL Normal 31-36 Red Cell Distribution Width 19 % High 10-15 Platelet Count 127 10^3/uL Low 150-450 Mean Platelet Volume 7.9 fL Normal 7.4-10.4 Abs Neutrophils 5.2 10^3/uL Normal 1.5-7.7 Abs Lymphocytes 0.6 10^3/uL Low 1.0-4.8 Abs Monocytes 0.7 10^3/uL Normal 0-0.8 Abs Eosinophils 0.2 10^3/uL Normal 0-0.6 Abs Basophils 0.1 10^3/uL Normal 0-0.2 Abs Nucleated RBC 0.0 10^3/uL Granulocyte % 76.7 % Lymphocyte % 9.3 % Monocyte % 10.2 % Eosinophil % 2.8 % Basophil % 1.0 % Nucleated Red Blood Cells % 0.1 1 Because ethnic data is not always readily [...] 15-29 5 Kidney failure <15 (or dialysis) 2 Troponin-I testing on Plasma Separator Tubes (PST) has a known false positive rate of 0.20-0.40%. All positive troponins reflex immediately to secondary confirmatory testing. Using the [employer] DxI 800 Access Immunoassay systems, the 99th percentile upper reference limit was demonstrated to be < 0.03 ng/mL. 3 Therapeutic concentration: <50 ug/mL Toxic concentration: >120 ug/mL 4 Because ethnic data is not always readily [...] 15-29 5 Kidney failure <15 (or dialysis) 5 [facility] Severe Sepsis and Septic Shock Management Bundle Measure requires all lactic acids initially measuring >2.0 mmol/L be repeated. 6 SEE RESULT BELOW Name: ISAIAS SALEH : [address]: Cornelia Montano DO Acct: [id number] Unit: [id number] AGE: 68 Location: [place] [address] Re02/18/19 SEX: F Status: ADM Ana María SPEC: [id number] DENITA: 02/17/19 [facility] DR: Trihs Villafuerte MD REQ: [id number] RECD: 02/17/19 STATUS: BENNETT MOREIRA DR: Estrada Richmond MD _ SOURCE: URINE SPDC: ORDERED: Urine Culture Procedure Result Reported Site Urine Culture Final 02/19/19- 0855 ML No Growth (<1,000 CFU/mL) * ML - Main Lab . END OF REPORT DEPARTMENT OF PATHOLOGY, [address] [place] [address] Miguel Angel Michel M.D. Director [facility] # [id number] 7 The urine specimen was tested at the listed cutoffs: Drug class test level (ng/mL) Amphetamines 500 Barbiturates 200 Benzodiazepine metabolites 200 Cocaine metabolites 150 Cannabinoids 50 Opiates 300 Pcp 25 Specimen was received without chain of custody. Results should be used for medical purposes only. 8 Standard intensity warfarin therapeutic range: 2.0-3.0 High intensity warfarin therapeutic range: 2.5-3.5 9 [facility] Severe Sepsis and Septic Shock Management Bundle Measure requires all lactic acids initially measuring >2.0 mmol/L be repeated. 10 Because ethnic data is not always readily [...] 15-29 5 Kidney failure <15 (or dialysis) 11 Critical Result LACT:2.[address] VILLAFUERTE at: 17:14:02 by:[id number] Read back by:DR. NOY LUX Severe Sepsis and Septic Shock Management Bundle Measure requires all lactic acids initially measuring >2.0 mmol/L be repeated. 12 Standard intensity warfarin therapeutic range: 2.0-3.0 High intensity warfarin therapeutic range: 2.5-3.5 13 Because ethnic data is not always readily [...] 15-29 5 Kidney failure <15 (or dialysis) 14 [facility] Severe Sepsis and Septic Shock Management Bundle Measure requires all lactic acids initially measuring >2.0 mmol/L be repeated. 15 SEE RESULT BELOW Name: EVELYNGURMEETISAIAS A : [address]: Trish Villafuerte MD Acct: [id number] Unit: [id number] AGE: 68 Location: [place] Re01/12/19 SEX: F Status: REG ER SPEC: [id number] DENITA: 01/12/[address]: Trish Villafuerte MD REQ: [id number] RECD: 01/12/19 STATUS: BENNETT MOREIRA DR: Estrada Richmond MD _ SOURCE: BLOOD,VENO SPDESC: ORDERED: Blood Cult Procedure Result Reported Site Aerobic Culture Bottle Final 01/17/19- 1649 ML No Growth Day 5 Anaerobic Culture Bottle Final 01/17/19- 1649 ML No Growth Day 5 * ML - Main Lab . END OF REPORT DEPARTMENT OF PATHOLOGY, [address] [place] [address] Miguel Angel Michel M.D. Director [facility] # [id number] 16 Troponin-I testing on Plasma Separator Tubes (PST) has a known false positive rate of 0.20-0.40%. All positive troponins reflex immediately to secondary confirmatory testing. Using the [employer] DxI 800 Access Immunoassay systems, the 99th percentile upper reference limit was demonstrated to be < 0.03 ng/mL. 17 Therapeutic concentration: <50 ug/mL Toxic concentration: >120 ug/mL 18 SEE RESULT BELOW Name: EVELYNGURMEETISAIAS A : [address]: Trish Villafuerte MD Acct: [id number] Unit: [id number] AGE: 68 Location: ED Re01/12/19 SEX: F Status: REG ER SPEC: [id number] DENITA: 01/12/19 [facility] DR: Trish Villfauerte MD REQ: [id number] RECD: 01/12/19 STATUS: RES OTHR DR: Estrada Richmond MD _ S[facility]: [facility]: Blood Cult Procedure Result Reported Site Aerobic Culture Bottle Preliminary 01/13/191648 ML No Growth Day 1 Anaerobic Culture Bottle Preliminary 01/13/191648 ML No Growth Day 1 * ML - Main Lab . END OF REPORT DEPARTMENT OF PATHOLOGY, [address] [place] [id number] Miguel Angel Michel M.D. Director [facility] # [id number] 19 Because ethnic data is not always readily [...] 15-29 5 Kidney failure <15 (or dialysis) 20 *Ascorbic acid is present which may interfere with detection of blood. 21 [facility] Severe Sepsis and Septic Shock Management Bundle Measure requires all lactic acids initially measuring >2.0 mmol/L be repeated. 22 Because ethnic data is not always readily [...] 15-29 5 Kidney failure <15 (or dialysis) Procedures Date Code Description Status 01/09/2019 01091 EKG, at Least 12 Leads w/Interpretation and Report Completed Medical Devices Description No Information Available Encounters Type Date Location Provider Dx Diagnosis Office Visit 04/02/2019 Mallory Richmond M.D. E11.9 Type 2 diabetes 3:15p mellitus without complications K74.69 Other cirrhosis of [...] complications Office Visit 01/23/2019 11:45a Main Office Estrada Richmond L03.311 Cellulitis of M.D. abdominal wall Office Visit 01/09/2019 11:15a Main Office Estrada Richmond Z01.818 Encounter for other M.D. preprocedural examination N83.209 Unspecified ovarian cyst, unspecified side Office Visit 12/26/2018 3:30p Main Office Estrada Richmond, N83.209 Unspecified ovarian M.D. cyst, unspecified side Office Visit 11/29/2018 4:45p Main Office Estrada Richmond L03.113 Cellulitis of right M.D. upper limb K74.69 Other cirrhosis of liver F32.9 Major depressive disorder, single episode, unspecified G47.33 Obstructive sleep apnea (adult) (pediatric) Assessments Date Code Description Provider 05/28/2019 R07.89 Other chest pain Estrada Richmond [...] ovarian cyst, unspecified side Estrada Richmond M.D. 11/29/2018 L03.113 Cellulitis of right upper limb Estrada Richmond M.D. 11/29/2018 K74.69 Other cirrhosis of liver Estrada Richmond M.D. 11/29/2018 F32.9 Major depressive disorder, single episode, Estrada Richmond M.D. unspecified 11/29/2018 G47.33 Obstructive sleep apnea (adult) (pediatric) Estrada Richmond M.D. Plan of Treatment Future Appointment(s):07/03/2019 3:45 pm - Estrada Richmond M.D. at Main [id number] - Estrada Richmond M.D.R07.89 Other chest painComments:Recent fall with trauma to the left lower ribs.Low suspicion for fracture on exam.Pain is improving and no respiratory symptoms.Reassured and we will hold on further evaluation for now.L20.9 Atopic dermatitis, unspecifiedComments:Dyshidrotic eczemaContinue regular moisturizersWill add topical steroid as needed Functional Status Functional Condition Comment Date Status Glasses Active Mental Status Description No Information Available Referrals Refer to Reason for Referral Status Appt Date [facility] Referral to [place] [facility] Oncology. - - Closed 01/04 Please contact Pt to schedule appt. - - Please fax appointment date/time to [facility], . Gynecologic Oncology [address], [address] [place] [address] [phone]
[2019-07-11] MEDS ORDERED: fentaNYL* 50 MCG/ML 2 ML VIAL (100 MCG VIAL) IV SLOW PU ONE (19:38)
--- NOTE | 2019-07-11 19:41 | ED ---
Lower Extremity - HPI Summary HPI Summary: Patient is a 68 year-old female arriving via ambulance to [facility] Emergency Department with increasing pain in the left hip for the last few months. The pain radiates through the left leg. She has been seen by pain management and was prescribed Fentanyl patches. She is scheduled to see Dr. Rothman from orthopedics tomorrow. However, the pain is uncontrollable rated 8-9/10 despite the Fentanyl patches. She lives with her daughter, but her daughter is unable to help her anymore. She denies any nausea, vomiting, diarrhea, shortness of breath, cough, or chest pain. She has not traveled recently. Patient is unable to ambulate on secondary to the pain. Past medical history significant for restless leg syndrome, diabetes, hepatic encephalopathy, cirrhosis with alcohol abuse, esophageal varices, L5-S1 fusion, partial hysterectomy, bilateral cataracts, TIA. Former smoker, no current alcohol use, no substance use. Medications reviewed. Allergies noted. - History of Current Complaint Chief Complaint: EDExtremityLower Stated Complaint: LEG PAIN/AMS PER EMS Time Seen by Provider: 07/11/19 19:19 Hx Obtained From: Patient Mechanism Of Injury: Unknown Onset/Duration: Weeks Severity Initially: Moderate Severity Currently: Severe Pain Intensity: 8 Pain Scale Used: 0-10 Numeric Timing: Constant Location: Is Discrete @ - left hip Character Of Pain: Aching Associated Signs And Symptoms: Negative: Fever, Other - shortness of breath, chest pain, cough, nausea, vomiting, diarrhea Aggravating Factor(s): Ambulation Alleviating Factor(s): Nothing Able to Bear Weight: No - secondary to pain - Allergies/Home Medications Allergies/Adverse Reactions: Allergies Allergy/AdvReac Type Severity Reaction Status Date / Time morphine Allergy Severe Anaphylatic Verified 07/11/19 19:50 Shock vancomycin Allergy Intermediate Rash And Verified 07/11/19 19:50 Itching lorazepam [From Ativan] Allergy See Comment Verified 07/11/19 19:50 meloxicam Allergy Rash Verified 07/11/19 19:50 Penicillins Allergy Swelling Verified 07/11/19 19:50 sulfamethoxazole Allergy Unknown Verified 07/11/19 19:50 [From Bactrim] Reaction Details trimethoprim [From Bactrim] Allergy Unknown Verified 07/11/19 19:50 Reaction Details acetaminophen [From Tylenol] AdvReac Unknown Verified 07/11/19 19:50 Reaction Details aspirin AdvReac CIRRHOSIS Verified 07/11/19 19:50 erythromycin base AdvReac Vomiting Verified 07/11/19 19:50 NSAIDS (Non-Steroidal AdvReac CIRRHOSIS Verified 07/11/19 19:50 Anti-Inflamma Sulfa (Sulfonamide AdvReac GI Upset Verified 07/11/19 19:50 Antibiotics) Home Medications: Home Medications Potassium Chlor TAB* [Potassium Chlor TAB 20 MEQ*] 20 meq PO TID 07/11/14 [ History Confirmed 07/11/19] Vitamin E CAP* 200 unit PO DAILY 12/23/15 [History Confirmed 07/11/19] Cholecalciferol TAB* [Vitamin D TAB*] 2,000 units PO EVERY OTHER DAY 01/10/16 [ History Confirmed 07/11/19] Ferrous Sulfate TAB* 325 mg PO DAILY 02/08/16 [History Confirmed 07/11/19] Alendronate (NF) [Fosamax (NF)] 70 mg PO WEEKLY 06/20/17 [History Confirmed ] Zinc 50 mg PO BID 08/01/17 [History Confirmed 07/11/19] Magnesium Chloride EC TAB* [Slow Mag EC TAB*] 71.5 - 119 mg PO DAILY 02/19/18 [ History Confirmed 07/11/19] Mirtazapine TAB* [Remeron TAB*] 30 mg PO BEDTIME 02/19/18 [History Confirmed ] Ammonium Lactate 12% [Lac-Hydrin 12 %] 1 applic TOPICAL DAILY PRN 12/04/18 [ History Confirmed 07/11/19] C,E,Zinc,Copper 11/Zsjhj1f/Lut [Ocuvite Adult 50 Plus Softgel] 1 cap PO DAILY [History Confirmed 07/11/19] Calcium Carbonate [Calcium] 600 mg PO BID 12/04/18 [History Confirmed 07/11/19] Pantoprazole TAB (NF) [Protonix TAB (NF)] 20 mg PO DAILY 12/04/18 [History Confirmed 07/11/19] oxyCODONE TAB* [Roxycodone TAB 5 mg*] 10 mg PO .Q4-6H PRN 12/04/18 [History Confirmed 07/11/19] Baclofen TAB* [Lioresal TAB*] 10 mg PO BID 02/18/19 [History Confirmed 07/11/19] Lactulose* 30 ml PO Q4HR PRN 03/15/19 [History Confirmed 07/11/19] Pregabalin 25 mg CAP (*) [Lyrica CAP(*)] 25 mg PO TID 03/15/19 [History Confirmed 07/11/19] Spironolactone [Aldactone 100 MG-] 200 mg PO DAILY 03/15/19 [History Confirmed 07/11/19] fentaNYL PATCH 25 MCG/HR* [Duragesic PATCH 25 Mcg/Hr*] 25 mcg TRANSDERM Q72H [History Confirmed 07/11/19] Furosemide TAB* [Lasix TAB*] 120 mg PO DAILY 07/11/19 [History Confirmed ] Pantoprazole TAB * [Protonix TAB*] 40 mg PO DAILY 07/11/19 [History Confirmed ] Rifaximin(NF) [Xifaxan(NF)] 200 mg PO BID 07/11/19 [History Confirmed 07/11/19] Triamcinolone 0.5% CREAM(NF) [Triamcinolone 0.5% CREAM*] 1 applic TOPICAL BID [History Confirmed 07/11/19] PMH/Surg Hx/FS Hx/Imm Hx Endocrine/Hematology History: Reports: Hx Diabetes - BACK TO NORMAL Cardiovascular History: Denies: Hx Hypertension, Hx Pacemaker/ICD, Other Cardiovascular Problems/ Disorders Respiratory History: Denies: Hx Chronic Obstructive Pulmonary Disease (COPD) GI History: Reports: 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, Hx Gastroesophageal Reflux Disease, Other GI Disorders - Esophageal varices History: Denies: Hx Dialysis, Hx Renal Disease Musculoskeletal History: Reports: Hx Arthritis, Hx Back Problems - lumbar fusion in 1990, Hx Orthopedic Injury - 04/18/18: Fx three ribs from a fall, Other Musculoskeletal History - Restless leg syndrome Denies: Hx Osteoporosis Sensory History: Reports: Hx Cataracts - bilat, Hx Contacts or Glasses Denies: Hx Legally Blind, Hx Deafness, Hx Hearing Aid Opthamlomology History: Reports: Hx Cataracts - bilat, Hx Contacts or Glasses Denies: Hx Legally Blind Neurological History: Reports: Hx Transient Ischemic Attacks (TIA), Other Neuro Impairments/Disorders - Hx spinal stenosis Psychiatric History: Reports: Hx Anxiety, Hx Depression Denies: Hx Panic Disorder - Cancer History Hx Chemotherapy: No Hx Radiation Therapy: No - Surgical History Surgical History: Yes Surgery Procedure, Year, and Place: LUMBAR SPINAL FUSION 1990, tonsillectomy. TUBAL LIGATION. WISDOM TEETH. 2014 [facility]. 12/2018 PARTIAL HYSTERECTOMY [facility] Hx Anesthesia Reactions: No Infectious Disease History: No Infectious Disease History: Denies: Hx of Known/Suspected MRSA, Traveled Outside the [place] in Last 30 Days - Family History Known Family History: Positive: Diabetes - Mother - Social History Alcohol Use: None Alcohol Amount: Hx ETOH abuse, none currently Hx Substance Use: No Substance Use Type: Reports: None Hx Tobacco Use: Yes - not currently Smoking Status (MU): Former Smoker Type: Cigarettes Amount Used/How Often: 5 CIGS/DAY Length of Time of Smoking/Using Tobacco: 30 years Have You Smoked in the Last Year: Yes Review of Systems Negative: Fever Negative: Chest Pain Negative: Shortness Of Breath, Cough Negative: Vomiting, Nausea Positive: Arthralgia - left hip All Other Systems Reviewed And Are Negative: Yes Physical Exam - Summary Physical Exam Summary: VITAL SIGNS: Reviewed. GENERAL: Patient is a well-nourished elderly female appearing older than her age. She is lying comfortable in the stretcher. Patient is not in any acute respiratory distress. HEAD AND FACE: No signs of trauma. No ecchymosis, hematomas or skull depressions. No sinus tenderness. EYES: PERRLA, EOMI x 2, No injected conjunctiva, no nystagmus. EARS: Hearing grossly intact. Ear canals and tympanic membranes are within normal limits. MOUTH: Oropharynx within normal limits. NECK: Supple, trachea is midline, no adenopathy, no JVD, no carotid bruit, no c- spine tenderness, neck with full ROM. CHEST: Symmetric, no tenderness at palpation. LUNGS: Clear to auscultation bilaterally. No wheezing or crackles. CVS: Regular rate and rhythm, S1 and S2 present, no murmurs or gallops appreciated. ABDOMEN: Soft, non-tender. Ascites. No rebound, no guarding, and no masses palpated. Bowel sounds are normal. EXTREMITIES: Decreased ROM in the left hip secondary to pain. Good femoral pulses. FROM in all other major joints, no edema, no cyanosis or clubbing. NEURO: Alert and oriented x 3. No acute neurological deficits. Speech is normal and follows commands. SKIN: Chronic rash in both lower extremities from the knee down with erythema, scaling, and crusting possibly secondary to chronic venous stasis dermatitis. Triage Information Reviewed: Yes Vital Signs On Initial Exam: Initial Vitals Temp Pulse Resp BP Pulse Ox 98.9 F 100 19 110/60 90 07/11/19 19:28 07/11/19 19:28 07/11/19 19:28 07/11/19 19:28 07/11/19 19:28 Vital Signs Reviewed: Yes Procedures - Sedation Patient Received Moderate/Deep Sedation with Procedure: No Diagnostics - Vital Signs Vital Signs Temp Pulse Resp BP Pulse Ox 07/11/19 19:28 98.9 F 100 19 110/60 90 - Laboratory Result Diagrams: 07/11/19 19:52 07/11/19 19:52 Lab Statement: Any lab studies that have been ordered have been reviewed, and results considered in the medical decision making process. - Radiology Hip MRI (07/05/2019) Radiology Interpretation Completed By: Radiologist Summary of Radiographic Findings: Impression: Muscular necrosis of the femoral head with bone marrow edema in the left femoral head and the neck as well has a small joint effusion. Dr. Pinto has reviewed this imaging report TAKEN June. Lumbar Spine X-Ray Radiology Interpretation Completed By: Radiologist Summary of Radiographic Findings: Impression: No definite hardware is identified of the lumbar spine. Dr. Pinto has reviewed this imaging report TAKEN JULY 05, 2019. Lower Extremity Course/Dx - Course Assessment/Plan: Patient is a 68 year-old female arriving via ambulance to [facility] Emergency Department with increasing pain in the left hip for the last few months. The pain radiates through the left leg. She has been seen by pain management and was prescribed Fentanyl patches. She is scheduled to see Dr. Rothman from orthopedics tomorrow. However, the pain is uncontrollable rated 8-9/ 10 despite the Fentanyl patches. She lives with her daughter, but her daughter is unable to help her anymore. Patient is unable to ambulate on secondary to the pain. Past medical history significant for restless leg syndrome, diabetes, hepatic encephalopathy, cirrhosis with alcohol abuse, esophageal varices, L5-S1 fusion, partial hysterectomy, bilateral cataracts, TIA. Former smoker, no current alcohol use, no substance use. Medications reviewed. Allergies noted. MRI of the hip on July 05, 2019 impression: Muscular necrosis of the femoral head with bone marrow edema in the left femoral head and the neck as well has a small joint effusion. X-ray of the lumbar spine done on July 05, 2019 impression: No definite hardware is identified of the lumbar spine. In the ED course, the patient was placed on a animal care service worker, IV access was obtained. She was given Fentanyl for the pain. Past medical records reviewed. Blood test w /o a significant abnormality except for WBCs 11.5, hemoglobin 11.7, sodium 125, chloride 97, carbon dioxide 19, glucose 129, calcium 8.3, total bili 1.2, alkaline phosphatase 254, CRP 237. Patient reports that she is unable to care for herself. The patients daughter lives with her and is unable to help her any longer. I discussed my physical exam and test results with Dr. Villar from the hospitalist services, and she agrees to admit the patient to her services. The patient is hemodynamically stable alert and oriented x 3. - Diagnoses Differential Diagnosis/HQI/PQRI: Positive: Bursitis, Contusion, Fracture (Closed ), Sprain, Strain, Tendonitis Provider Diagnoses: Avascular necrosis of hip, Hyponatremia, Ascites, Alcoholic cirrhosis of liver with ascites - Physician Notifications Discussed Care Of Patient With: Millicent Villar - hospitalist Time Discussed With Above Provider: 20:54 Instructed by Provider To: Other - I discussed the patients case with Dr. Villar , who accepts the patient for admission. Discharge ED - Sign-Out/Discharge Documenting (check all that apply): Patient Departure - Patient accepted for admission by Dr. Villar. - Discharge Plan Condition: Stable Disposition: ADMITTED TO [facility] - Billing Disposition and Condition Condition: STABLE Disposition: Admitted to [facility] - Attestation Statements Document Initiated by Scribe: Yes Documenting Scribe: Caroline Hale Provider For Whom Christ is Documenting (Include Credential): Franc Pinto MD Scribe Attestation: Caroline Santoro, scribed for Franc Pinto MD on 07/12/19 at 0359. Scribe Documentation Reviewed: Yes Provider Attestation: The documentation as recorded by the Caroline senior accurately reflects the service I personally performed and the decisions made by me, Franc Pinto MD Status of Scribe Document: Viewed
[2019-07-11 19:58] LABS: ABS Lymphocytes 0.6 10^3/ul (1.0-4.8); ABS Neutrophils 9.9 10^3/ul (1.5-7.7); Eosinophil % 0.2 %; Hematocrit 36 % (35-47); Hemoglobin 11.7 g/dL (12.0-16.0); Lymphocyte % 5.2 %; Mean Corpuscular HGB Conc 33 g/dL (31-36); Mean Corpuscular Hemoglobin 29 pg (27-31); Mean Corpuscular Volume 88 fL (80-97); Mean Platelet Volume 7.4 fL (7.4-10.4); Platelet Count 219 10^3/uL (150-450); Red Blood Count 4.07 10^6 /uL (3.70-4.87); Red Cell Distribution Width 18 % (10-15); White Blood Count 11.5 10^3/uL (3.5-10.8)
[2019-07-11 20:15] LABS: Albumin 2.7 g/dL (3.2-5.2); Albumin/Globulin Ratio 0.5 (1-3); BUN/Creatinine Ratio 17.3 (8-20); C Reactive Protein 237.61 mg/L (<8.01); Calcium 8.3 mg/dL (8.6-10.3); EGFR African American 142.8 (>60); Globulin 5.6 g/dL (2-4); Total Bilirubin 1.2 mg/dL (0.2-1.0); Total Protein 8.3 g/dL (6.4-8.9)
[2019-07-11] MEDS ORDERED: Morphine INJ* 2 MG/ML 1 ML SYRINGE (TWO MG - NEW SYRINGE VERSION) IV PRN (21:37)
[2019-07-11] MEDS ORDERED: cefTRIAXone(*) 1 GM in NS 0.9% 50 ML* 50 ML IVPB ONE (21:41)
[2019-07-11] MEDS ORDERED: NS 0.9% 1000 ML** 1,000 ML IV SCH (21:45)
[2019-07-11] MEDS ORDERED: fentaNYL PATCH 25 MCG/HR TRANSDERM SCH (22:00)
[2019-07-11] MEDS: fentaNYL* 50 MCG/ML 2 ML VIAL (100 MCG VIAL) IV SLOW PU PRN (22:13)
[2019-07-11] MEDS: oxyCODONE TAB* 5 MG TAB PO PRN (22:40)
[2019-07-11] MEDS: Heparin VIAL(*) 5000 UNITS/ML VIAL (FIVE THOUSAND) SUBCUT SCH (22:40)
--- NOTE | 2019-07-11 23:55 | HP ---
CC: Dr. Richmond; Dr. Suarez; Dr. Rothman; Dr. Vincent * HISTORY AND PHYSICAL: DATE OF ADMISSION: 07/11/19 PRIMARY CARE PROVIDER: Dr. Richmond. GASTROENTEROLOGY: Dr. Suarez. ORTHOPEDIC SURGERY: Dr. Rothman. CHIEF COMPLAINT: Left hip pain. HISTORY OF PRESENT ILLNESS: Mrs. Syed is a 68-year-old female who has history of alcoholic liver cirrhosis. She quit drinking alcohol 6 years ago. She was diagnosed with avascular necrosis by Dr. Vincent within the past couple of weeks, but she has had some problems with her left hip for the past [address] Vincent is managing her pain and she had been on fentanyl and oxycodone. Despite that, she stated that for the past 5 days the pain on the left hip is unbearable and she is unable to bear weight on the left hip. She also noted increased urination and urinary frequency. Due to that, she stopped her diuretics, but she continues to have urinary frequency and urgency. She denies hematuria. She came into the hospital dehydrated, hyponatremic, with elevated C-reactive protein level. She is going to be admitted with diagnosis of avascular necrosis of the hip. We will also work her up for possibility of infection. PAST MEDICAL HISTORY: 1. Alcoholic liver cirrhosis. 2. The patient used to be diabetic, but stated that that resolved. 3. History of esophageal varices with banding. 4. Chronic back pain syndrome. 5. Restless leg syndrome. 6. Transient ischemic attack. 7. Spinal fusion in 1992. 8. History of pubic rami fractures and chronic pain due to that. 9. Left hip avascular necrosis. 10. History of cerebellar infarction. 11. In December of 2018, hysterectomy and salpingo-oophorectomy. MEDICATIONS AT HOME: Include: 1. Rifaximin 200 mg b.i.d. 2. Lyrica 25 mg 3 times a day. 3. Fentanyl patch 25 mcg every 72 hours. 4. Aldactone 200 mg daily, the patient stopped it 3 days ago. 5. Baclofen 10 mg b.i.d. p.r.n. 6. Oxycodone 10 mg every 4 hours p.r.n. 7. Lactulose 30 mL every 4 hours. The patient usually takes it twice a day. 8. Protonix 20 mg daily. 9. Vitamin D3 2000 units every other day. 10. Ocuvite softgels 1 capsule daily. 11. Remeron 30 mg at bedtime. 12. Ferrous sulfate 325 mg daily. 13. Slow-Mag 119 mg daily. 14. Zinc 50 mg b.i.d. 15. Vitamin E 200 units daily. 16. Calcium carbonate 600 mg b.i.d. 17. Fosamax 70 mg weekly. 18. Triamcinolone cream 0.5%, 1 application topical b.i.d. p.r.n. 19. Lac-Hydrin 1 application daily to bilateral lower extremities p.r.n. 20. Potassium chloride 20 mEq 3 times a day. 21. Protonix 40 mg daily. 22. Furosemide 120 mg daily. ALLERGIES: Include MORPHINE, VANCOMYCIN, LORAZEPAM, MELOXICAM, PENICILLIN, BACTRIM, ACETAMINOPHEN, ASPIRIN, ERYTHROMYCIN, NONSTEROIDAL ANTI-INFLAMMATORY MEDICATIONS, and SULFA. FAMILY HISTORY: Positive for mother with history of diabetes and father with emphysema. SOCIAL HISTORY: The patient lives with her daughter, Keri, who is her surrogate. She is a [id number]. She has history of 30-pack year smoking and quit 4 years ago. She was an alcoholic and she is a recovering alcoholic for the past 6 years. She ambulates with a rolling walker. REVIEW OF SYSTEMS: Please see history of present illness. In addition at the time of admission, the patient denies any fevers, shortness of breath, abdominal pain. She stated that she has had very poor appetite and her p.o. intake has been limited due to that. She also stopped her diuretics 3 to 4 days ago due to increase in urinary frequency. All the remaining 12 systems was reviewed with the patient and was otherwise negative. Please note that the patient has chronic bilateral lower extremity venous stasis ulcers and edema, which is at her baseline. PHYSICAL EXAMINATION GENERAL: The patient is a very pleasant 68-year-old female, who is in no acute distress. The patient is alert and oriented x3. VITAL SIGNS: Blood pressure of 109/66, heart rate of 99 and regular, respiratory rate 19, oxygen saturation 91% on room air, temperature of 98.9. HEENT: Head: Atraumatic, normocephalic. Eyes: Pupils are equal, reactive to light and accommodation. Oropharynx clear. Mucosa dry. NECK: Supple. No JVD. No bruits bilaterally. RESPIRATORY: Clear to auscultation bilaterally. CARDIOVASCULAR: Regular rate and rhythm. No murmur. ABDOMEN: Soft, ascites present. Nontender. Bowel sounds are present in all 4 quadrants. EXTREMITIES: There are notable venous stasis skin changes with dark skin discoloration and scabbed lesions in bilateral lower extremities. The skin also is very dry and scaly appearing. There is chronic erythema, but no increased warmth and no cellulitis noted. Peripheral pulses in bilateral lower extremities are poorly palpable due to skin changes. NEUROLOGIC: On neuro evaluation, speech clear. Cranial nerves II through XII grossly intact. Motor strength is 5/5 bilaterally. PSYCHIATRIC: Pleasant and cooperative to evaluation, oriented x3 with no evidence of anxiety or depression. SKIN: On evaluation of the skin, apart from the above measured venous stasis ulcerations that are covered with eschars, the patient has multiple spider angiomas over her entire trunk. Please note that movement in the left hip is extremely limited due to severe pain elicited on straight leg raise and any hip movement on the left side. DIAGNOSTIC STUDIES/LAB DATA: White blood cell count 11.5, hemoglobin 11.7, hematocrit 36, and platelets 219. Sodium 125, potassium 4, chloride 97, carbon dioxide 19, BUN 9, creatinine 0.52. Liver function tests showed bilirubin of 1.2, AST and ALT were 32 and 17 respectively, alkaline phosphatase of 254 which is chronic. The patient's albumin is low at 2.7. C-reactive protein of 236. Please note that the patient had an MRI performed of her left lower extremity on 07/05/19, impression: "Avascular necrosis of the femoral head with bone marrow edema in the femoral head and neck as well as small joint effusion." ASSESSMENT AND PLAN: 1. Intractable left hip pain due to avascular necrosis. The patient is going to be admitted to the hospital. Dr. Rothman will see the patient in orthopedic consultation. I am unsure if the avascular necrosis could cause a marked elevation of C-reactive protein and I am worried about the possibility of other underlying infection. 2. Elevation of C-reactive protein. The patient has mild leukocytosis and symptoms of urinary frequency and urgency. She has not been able to provide a urine sample yet due to having multiple episodes of incontinence. At this point , I will treat the patient empirically with 1 dose of ceftriaxone IV due to markedly elevated C-reactive protein. She is not septic at admission. 3. The patient's hyponatremia is likely due to dehydration. Clinically, the patient appears to be dehydrated. She did stop her diuretics just 3 days ago. I will continue her on gentle intravenous hydration and we will continue holding her Aldactone and Lasix. 4. For her history of liver cirrhosis, we will continue her rifaximin as well as lactulose as well as PPI. 5. For intractable left hip pain, her fentanyl is going to be continued as well as oxycodone with addition to morphine. 6. For DVT prophylaxis, the patient is going to be placed on heparin subcutaneously. 7. The patient's code status is do not resuscitate and do not intubate and her surrogate is her daughter as mentioned above. 8. For the patient's bilateral lower extremity venous stasis, Lac-Hydrin is going to be continued. TIME SPENT: Approximately 75 minutes were spent on admission of this patient, more than half of that time was spent [id number] with the patient during the interview and physical exam. [id number]/[facility] #: [id number]
[2019-07-12] MEDS: fentaNYL PATCH 50 MCG/HR TRANSDERM SCH (00:52)
[2019-07-12] MEDS: fentaNYL* 50 MCG/ML 2 ML VIAL (100 MCG VIAL) IV SLOW PU PRN ×2 (02:30→07:48)
[2019-07-12] MEDS: oxyCODONE TAB* 5 MG TAB PO PRN ×3 (05:18→17:59)
[2019-07-12] MEDS: Heparin VIAL(*) 5000 UNITS/ML VIAL (FIVE THOUSAND) SUBCUT SCH ×4 (05:19→21:02)
[2019-07-12] MEDS: Calcium Carbonate TAB* 1250 MG (CALCIUM 500 MG) PO SCH ×2 (07:38→20:58)
[2019-07-12] MEDS: Magnesium Chloride EC TAB* 64 MG PO SCH (07:38)
[2019-07-12] MEDS: Pantoprazole TAB * 40 MG TAB PO SCH (07:40)
[2019-07-12] MEDS: Ferrous Sulfate TAB* 325 MG PO SCH (07:40)
[2019-07-12] MEDS: Pregabalin 25 mg CAP (*) PO SCH ×3 (07:40→20:57)
[2019-07-12] MEDS: Baclofen TAB* 10 MG PO SCH ×2 (07:40→20:57)
[2019-07-12] MEDS: RIFAXIMIN 200 MG PO SCH ×2 (07:41→20:44)
--- NOTE | 2019-07-12 08:36 | CONS ---
ORTHOPEDIC CONSULTATION: DATE OF CONSULT: 07/12/19 CHIEF COMPLAINT: Left hip pain. HISTORY OF PRESENT ILLNESS: Ms. Syed is a 68-year-old female who presents to the emergency room with increased 10/10 unbearable pain in the left hip. Over the last 5 days, the patient has had increased pain in the left hip. Any weightbearing or walking increases her pain. She denies any recent fall. She does have a history of known avascular necrosis and is treated by Dr. Vincent with fentanyl and oxycodone. The patient has a history of alcoholic liver cirrhosis. She quit drinking alcohol 6 years ago. She is admitted with elevated CRP, leukocytosis, dehydration, and hyponatremia as well as avascular necrosis and uncontrolled pain of the left hip. I am consulted for orthopedic evaluation of the hip. PAST MEDICAL HISTORY: Alcoholic liver cirrhosis, femoral head avascular necrosis, diabetes, esophageal varices with banding, chronic back pain, restless leg syndrome, TIA, history pubic rami fractures, cerebellar infarction. PAST SURGICAL HISTORY: Esophageal variceal banding, spinal fusion, hysterectomy , salpingo-oophorectomy. HOME MEDICATIONS: 1. Rifaximin 200 mg b.i.d. 2. Lyrica 25 mg t.i.d. 3. Fentanyl patch 25 mcg q.72 hours. 4. Aldactone 200 mg p.o. daily. 5. Baclofen 10 mg b.i.d. 6. Oxycodone 10 mg q.4 hours p.r.n. pain. 7. Lactulose 30 mg every 4 hours. 8. Protonix 20 mg p.o. daily. 9. Vitamin D3 2000 units p.o. daily. 10. Remeron 30 mg p.o. q.h.s. 11. Ferrous sulfate 325 mg p.o. daily. 12. Slow-Mag 119 mg p.o. daily. 13. Zinc 50 mg b.i.d. 14. Vitamin E 200 mg daily. 15. Fosamax 70 mg q. weekly. 16. Potassium chloride 20 mEq p.o. t.i.d. 17. Protonix 40 mg p.o. daily. 18. Furosemide 120 mg p.o. daily. ALLERGIES: MORPHINE, VANCOMYCIN, LORAZEPAM, MELOXICAM, PENICILLIN, BACTRIM, ACETAMINOPHEN, ASPIRIN, ERYTHROMYCIN, NSAID, SULFA. FAMILY HISTORY: Maternal diabetes, paternal lung disease. SOCIAL HISTORY: The patient lives with her daughter Keri, who is her surrogate. She is DNR. History of tobacco abuse and alcohol abuse. 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 No recreational drugs. She ambulates with a rolling walker. REVIEW OF SYSTEMS: Fourteen systems reviewed with the patient today. Positive for left hip pain, left toe paresthesias, lower back pain. Otherwise, the patient reports review of systems is negative or not relevant. PHYSICAL EXAM: Vitals: Temperature 97.8, pulse 101, blood pressure 132/84. General: The patient is a thin female with a distended abdomen. Alert and oriented x3. She is in obvious distress from pain, asking for pain medication. Gait is not assessed. Bilateral lower extremities: The patient's skin has multiple open wounds. She has dark discoloration and scabbed areas. The skin is dry and scaly. Chronic erythema distally. 1+ palpable DP pulses of left lower extremity. She has pain with any motion of the hip, tenderness along the trochanteric bursa, and tenderness along the lower lumbar spine. Any motion of the hip causes severe pain. She demonstrates flexion and extension of her toes and reports intact sensation to light touch. DIAGNOSTIC STUDIES/LAB DATA: Labs from 07/11/19 show a white blood cell elevated at 11.5, hematocrit 36, platelets 219. Sodium 125, potassium 4.0, chloride 97, BUN and creatinine 9 and 0.52. Alk phos 254. CRP 237. Radiographs: I have reviewed x-rays and recent MRI of the left hip. This shows avascular necrosis, end-stage arthritis, and a small effusion. ASSESSMENT AND PLAN: Ms. Syed is a 68-year-old female with alcoholic cirrhosis. Her lower extremities have multiple open wounds in various stages of healing. I am certainly concerned about infection because of the elevated CRP, leukocytosis, and increased pain. I believe the likely involvement of possible infection would be the left hip and spine. She is reporting new symptoms today that are sciatic in nature on the left lower extremity. Regarding the hip, I would recommend a radiology-guided aspiration of the hip joint to evaluate for infection. We discussed that she would need an open washout of the hip should it be determined that she has an infection. I also believe that further evaluation of her spine for any abscesses or a source of infection would be something to consider at this time. For now, she can be weightbearing as tolerated. She is going to need extensive pain medication because of her baseline fentanyl and oxycodone. I will follow along with the patient. [id number]/[facility] #: [id number] MTDD
[2019-07-12] MEDS: fentaNYL Patch Check Q Shift 1 NOTE FOLLOW UP SCH ×2 (11:26→19:33)
[2019-07-12 11:50] LABS: ABS Basophils 0.1 10^3/ul (0-0.2); ABS Lymphocytes 0.5 10^3/ul (1.0-4.8); ABS Monocytes 0.8 10^3/ul (0-0.8); ABS Neutrophils 9.7 10^3/ul (1.5-7.7); Eosinophil % 0.4 %; Hematocrit 34 % (35-47); Hemoglobin 11.3 g/dL (12.0-16.0); Lymphocyte % 4.8 %; Mean Corpuscular HGB Conc 33 g/dL (31-36); Mean Corpuscular Hemoglobin 29 pg (27-31); Mean Corpuscular Volume 88 fL (80-97); Mean Platelet Volume 7.2 fL (7.4-10.4); Nucleated Red Blood Cells % 0.1; Platelet Count 202 10^3/uL (150-450); Red Blood Count 3.91 10^6 /uL (3.70-4.87); Red Cell Distribution Width 18 % (10-15); White Blood Count 11.1 10^3/uL (3.5-10.8)
[2019-07-12] MEDS: Ammonium Lactate 12% 1 APPLIC TUBE TOPICAL PRN (12:00)
[2019-07-12 12:10] LABS: Potassium 3.7 mmol/L (3.5-5.0)
[2019-07-12 12:11] LABS: Albumin 2.5 g/dL (3.2-5.2); Albumin/Globulin Ratio 0.5 (1-3); BUN/Creatinine Ratio 18.2 (8-20); Calcium 7.9 mg/dL (8.6-10.3); EGFR African American 173.1 (>60); EGFR Non-African American 143.1 (>60); Globulin 5.1 g/dL (2-4); Total Bilirubin 1.1 mg/dL (0.2-1.0); Total Protein 7.6 g/dL (6.4-8.9)
[2019-07-12] MEDS: ceFAZolin 2 GM PREMIX in ORs 2 GM/50 ML BAG IVPB SCH ×2 (13:05→20:52)
[2019-07-12 14:19] LABS: Urine Appearance Cloudy; Urine Bilirubin Negative (Negative); Urine Blood Negative (Negative); Urine Color Yellow; Urine Glucose Negative (Negative); Urine Ketones Negative (Negative); Urine Nitrite Negative (Negative); Urine Protein Negative (Negative); Urine Specific Gravity 1.008 (1.010-1.030); Urine Urobilinogen Positive (Negative)
--- NOTE | 2019-07-12 14:28 | ECHO ---
*[facility]* [place] [address] Fax #: [phone] Transthoracic Echocardiogram Patient: June Syed : 1950 Study Date: 07/12/2019 Age: 68 Gender: F HR: 95 bpm Height: 58 in /147.3 cm BSA: 1.58 m^2 Weight: 143.7 lb /65.3 kg BMI: 30.1 kg/m^2 *Draw Operator: * Eulalia Santizo RDCS RN *Referring Physician: * Matthew Nelson *Reading Physician: * Nia Nichole MD Indications: Bacteremia. History: Avascular necrosis of left hip. Alcoholic cirrhosis. Esophageal varices with banding.Transient ischemic attack. Cerebrovascular accident. Risk factors: Diabetes mellitus. Conclusions Summary: - Left ventricle: Systolic function is normal. The estimated ejection fraction is 55-60%. Wall motion is normal; there are no regional wall motion abnormalities. - Mitral valve: The leaflets are mildly thickened. There is a vegetation associated with the posterior leaflet of the mitral valve. It measures 0.9 cm x 1.5 cm in the A4C view with mobile linear lesions extending from the main lesion. There is mild regurgitation. - Aortic valve: The annulus is calcified. The valve is trileaflet. The leaflets are mildly thickened with focal thickening on the noncoronary cusp and left coronary cusp that may be calcification but cannot exclude vegetation. There is no evidence of stenosis. There is no regurgitation. - Tricuspid valve: There is trace regurgitation. - No previous echocardiogram available. Study data: Transthoracic echocardiogram. Procedure: Transthoracic echocardiography was performed. Image quality was fair with good imaging of the mitral and aortic valves. Complete 2D, spectral Doppler, and color flow Doppler. Location: Bedside. Patient status: Inpatient. Patient room number: 416-02. Rhythm: Normal sinus rhythm. Findings Left ventricle: The cavity size is normal. Wall thickness is mildly increased. Systolic function is normal. The estimated ejection fraction is 55-60%. Wall motion is normal; there are no regional wall motion abnormalities. There is no consistent Doppler evidence of clinically significant diastolic dysfunction. Right ventricle: The cavity size is normal. Systolic function is normal. Left atrium: The atrium is normal in size. Right atrium: The atrium is normal in size. Mitral valve: The leaflets are mildly thickened. There is a vegetation associated with the posterior leaflet of the mitral valve. It measures 0.9 cm x 1.5 cm in the A4C view with mobile linear lesions extending from the main lesion. There is no evidence of stenosis. There is mild regurgitation. Aortic valve: The annulus is calcified. The valve is trileaflet. The leaflets are mildly thickened with focal thickening on the noncoronary cusp and left coronary cusp that may be calcification but cannot exclude vegetation. There is no evidence of stenosis. There is no regurgitation. Tricuspid valve: Not well visualized. The leaflets are normal thickness. There is no evidence of a vegetation. There is no evidence of stenosis. There is trace regurgitation. Pulmonic valve: Not well visualized. There is trace regurgitation. Aorta: Aortic root: The aortic root is not dilated. Ascending aorta: The ascending aorta is not dilated. Aortic arch: The aortic arch is not visualized. Pericardium: There is no significant pericardial effusion. Pulmonary arteries: Not well visualized. Systolic pressure can not be accurately estimated. Systemic veins: Inferior vena cava: Not well visualized. Measurements Left ventricle Value Ref Right atrium Value Ref LORENE, LAX 4.8 cm 3.8 - 5.2 ML dim, ES, A4C 3.2 cm 2.6 - 4.4 ESD, LAX 2.7 cm 2.2 - 3.5 SI dim, ES, A4C 4.4 cm 3.4 - 5.3 FS, LAX 44 % 27 - 45 PW, ED 0.8 cm 0.6 - 0.9 Aortic valve Value Ref IVS/PW, ED 1.03 Naren diam, ED 2.2 cm --------- E', lat naren, TDI (L) 9.0 cm/sec >=10.0 Peak v, S 1.5 m/sec --- ------ E/e', lat naren, 8 VTI, S 26.7 cm ------ --- TDI Mean grad, S 6.0 mm Hg --------- E', med naren, TDI 7.0 cm/sec >=7.0 Peak grad, S 9.0 mm Hg --- ------ E/e', med naren, 10 LVOT/AV, VTI ratio 0.91 ------ --- TDI E', avg, TDI 8.0 cm/sec Mitral valve Value Ref E/e', avg, TDI 9 <=14 Peak E 0.73 m/sec --- ------ Peak A 1.04 m/sec --------- LVOT Value Ref Decel time 236 ms --------- Peak minesh, S 1.09 m/sec Peak grad, D 2.1 mm Hg --------- VTI, S 24.4 cm Peak E/A ratio 0.7 --------- Mean grad, S 3 mm Hg Pulmonic valve Value Ref Ventricular septum Value Ref Peak v, S 0.85 m/sec --------- IVS, ED 0.8 cm 0.6 - 0.9 Peak grad, S 3.0 mm Hg --------- Right ventricle Value Ref Aortic root Value Ref LORENE minor ax, 2.4 cm 1.9 - 3.5 Root diam 3.1 cm <3.8 A4C mid Ascending aorta Value Ref Left atrium Value Ref AAo AP diam, S 3.2 cm --------- AP dim, ES 3.70 cm 2.70 - 3.80 ML dim, A4C 3.0 cm SI dim, A4C 4.7 cm Vol/bsa, ES, 1-p 20 ml/m^2 11 - 40 A4C Vol/bsa, ES, A/L 21 ml/m^2 16 - 34 Legend: (L) and (H) na values outside specified reference range. Prepared and electronically signed by Nia Nichole MD 07/12/2019 14:27
[2019-07-12 14:32] LABS: Urine Bacteria 2+ (Absent); Urine Red Blood Cell Absent (Absent); Urine Squamous Epithelial Cell Present (Absent); Urine White Blood Cell 3+(>20/hpf) (Absent)
[2019-07-12 15:49] LABS: Body Fluid Source Synovial Fluid
--- NOTE | 2019-07-12 16:47 | PN ---
Subjective Date of Service: 07/12/19 Interval History: HD2 on 07/11 68F with PMH of Decompensated Cirrhosis 2/2 Alcoholic Liver disease, TIA, DM(no medication), recent left hip avascular necrosis presented with worsening left hip pain for 5 days associated with difficulty in weight bearing and increased urination. FOund to be in sepsis with MSSA bacteremia 2/2 questionable cellulitis/left septic arthritis and complicated by Endocarditis. ON cefazolin( started on 07/11) Overnight: admitted Patient seen and examined at bedside. patient states she has pain in left hip; increased more during movement. patient denies fever and recent fall. No shortness of breath and chest pain. Has abdominal distension but no pain, nausea or vomiting. She has chronic multiple wounds on her bilateral legs that has been present for years; used to see wound clinic in past but not anymore. Objective Active Medications: Ammonium Lactate (Lac-Hydrin 12 %) 1 applic TOPICAL DAILY PRN PRN Reason: DRY SKIN Baclofen (Lioresal Tab*) 10 mg PO BID [facility] Last Admin: 07/12/19 07:40 Dose: 10 mg Calcium Carbonate (Calcium Carbonate Tab*) 625 mg PO BID [facility] Last Admin: 07/12/19 07:38 Dose: 625 mg Cholecalciferol (Vitamin D Tab*) 2,000 units PO EVERY OTHER DAY [facility] Fentanyl (Duragesic Patch 50 Mcg/Hr*) 50 mcg TRANSDERM Q72H [facility] Last Admin: 07/12/19 00:52 Dose: 50 mcg Ferrous Sulfate (Ferrous Sulfate Tab*) 325 mg PO DAILY [facility] Last Admin: 07/12/19 07:40 Dose: 325 mg Heparin Sodium (Porcine) (Heparin Vial(*)) 5,000 units SUBCUT Q8HR [facility] Last Admin: 07/12/19 13:04 Dose: 5,000 units Sodium Chloride (Ns 0.9% 1000 Ml) 1,000 mls @ 100 mls/hr IV PER RATE [facility] Cefazolin Sodium/Dextrose (Kefzol 2 Gm Premix In Ors(*)) 2 gm in 50 mls @ 100 mls/hr IVPB Q8H [facility] Last Admin: 07/12/19 13:05 Dose: 100 mls/hr Lactulose (Lactulose*) 30 ml PO BID [facility] Last Admin: 07/12/19 07:38 Dose: 30 ml Magnesium Chloride (Slow Mag Ec Tab*) 128 mg PO DAILY [facility] Last Admin: 07/12/19 07:38 Dose: 128 mg Mirtazapine (Remeron Tab*) 30 mg PO BEDTIME [facility] Oxycodone HCl (Roxycodone Tab*) 10 mg PO Q4H PRN PRN Reason: PAIN - MODERATE Last Admin: 07/12/19 13:04 Dose: 10 mg Pantoprazole Sodium (Protonix Tab*) 40 mg PO DAILY [facility] Last Admin: 07/12/19 07:40 Dose: 40 mg Pharmacy Profile Note (Fentanyl Patch Check Q Shift) 1 note FOLLOW UP 0700, 1900 [facility] Last Admin: 07/12/19 11:26 Dose: 1 note Pregabalin (Lyrica 25 Mg Cap (*)) 25 mg PO TID [facility] Last Admin: 07/12/19 13:05 Dose: 25 mg Rifaximin (Xifaxan(Nf)) 200 mg PO BID [facility] Last Admin: 07/12/19 07:41 Dose: Not Given Vital Signs - 8 hr 07/12/19 07/12/19 07/12/19 10:31 10:32 11:15 Temperature 97.7 F Pulse Rate 94 Respiratory 20 20 18 Rate Blood Pressure 87/56 (mmHg) O2 Sat by Pulse 94 Oximetry 07/12/19 07/12/19 07/12/19 13:04 13:05 15:15 Temperature 98.1 F Pulse Rate 98 Respiratory 18 18 18 Rate Blood Pressure 98/68 (mmHg) O2 Sat by Pulse 91 Oximetry 07/12/19 15:37 Temperature Pulse Rate Respiratory 18 Rate Blood Pressure (mmHg) O2 Sat by Pulse Oximetry Oxygen Devices in Use Now: None Exam: Patient is lying on a bed in supine position and is not in acute distress. HEENT: Normocephalic and atraumatic. Sclera anicteric. EOMI. PERRLA. Neck: No lymphadenopathy and enlarged thyroid. NO JVD elevation. Lungs: Good respiratory effort and chest expansion. Clear with no added sound. Heart: Normal in rate and rhythm. S1/S2 heard with no murmur, rubs or gallops. Abdomen: Firm and distended but nontender. Multiple spider nevi seen. Dullness on percussion Extremities; Chronic venous changes seen with discoloration, multiple open wounds with scabbing and excoriation Neuro: Alert, oriented and coperative. CN intact. Motor nomral and sensation intact. Result Diagrams: 07/12/19 11:45 07/12/19 11:45 Assess/Plan/Problems-Billing Assessment: 68F with PMH of Decompensated Cirrhosis 2/2 Alcoholic Liver disease, TIA, DM(no medication), recent left hip avascular necrosis presented with worsening left hip pain for 5 days associated with difficulty in weight bearing and increased urination. FOund to be in sepsis with MSSA bacteremia 2/2 questionable cellulitis/left septic arthritis and complicated by Endocarditis. ON cefazolin( started on 07/11) - Patient Problems (1) Sepsis Current Visit: Yes Status: Acute Comment: -Met SIRS criteria with tachycardia and tachypnea with source being likely skin or left hip septic arthritis. -has MSSA bacteremia -resolved now -Her BP is on soft side which we think is secondary to narcotics and also due to cirrhosis -will keep monitoring -on cefazolin(started on 07/11) (2) MSSA bacteremia Current Visit: Yes Status: Acute Code(s): R78.81 - BACTEREMIA; B95.61 - METHICILLIN SUSCEP STAPH INFCT CAUSING DIS CLASSD [id number] SNOMED Code(s): 543890462 Comment: -Blood culture on 07/10 -growing MSSA; pending sensitivity -suspect secondary to cellulitis or could be left hip septic arthritis -s/p Left hip aspiration on 07/11- showing no infection -Echo: vegetation on mitral valve with mild regurgitation -will cover with cefazolin; started on 07/11 -surveillance culture sent -receiving IVF (3) Multiple wounds of skin Current Visit: Yes Status: Acute Code(s): R23.8 - OTHER SKIN CHANGES SNOMED Code(s): 548678000 Comment: -has chronic wound on bilateral lower extremities -No active drainage for sending culture -treating with IV cefazolin -Appreciate ID consult -cleaning with soap water and apply lotion (4) Avascular necrosis of bone of left hip Current Visit: Yes Status: Acute Code(s): M87.052 - IDIOPATHIC ASEPTIC NECROSIS OF LEFT FEMUR SNOMED Code(s): 106253193 Comment: -for few months- was following with Dr. Jackson and is taking fentanyl, oxycodone, pregabalin -increasing pain for last 5 days with radiating pain -Hip aspiration showing no e/o infection -Appreciate ortho input; recommeding MRI lumbar spine- pending results -If patient does not improve then may ocnsider left hip wash out (5) Cirrhosis Current Visit: No Status: Acute Comment: - Distended abdomen with chronic liver disease changes - CT findings consistent with history of cirrhosis - Follows with Dr. Suarez as an outpatient - Hold diuretic given sepsis -continue lactulose and rifaximin -Pending US paracentesis (6) Hyponatremia Current Visit: No Status: Acute Code(s): E87.1 - HYPO-OSMOLALITY AND HYPONATREMIA SNOMED Code(s): 47318038 Comment: - Has chronic hyponatremia -could be 2/2 cirrhosis -but now her Na is 125 -most likely dehydration- receiving IVF (7) Anxiety and depression Current Visit: No Status: Acute Code(s): F41.9 - ANXIETY DISORDER, UNSPECIFIED; F32.9 - MAJOR DEPRESSIVE DISORDER, SINGLE EPISODE, UNSPECIFIED SNOMED Code(s): 181964226 Comment: - Continue mirtazapine (8) Anemia Current Visit: Yes Status: Acute Code(s): D64.9 - ANEMIA, UNSPECIFIED SNOMED Code(s): 677219553 Comment: -Normocytic anemia -Iron studies in 2019 shows low iron with normal ferritin and TIBC -Normal vitamin B12 and folate -Hb 11; stable -can follow outpatient for further workup (9) Diabetes Current Visit: No Status: Acute Code(s): E11.9 - TYPE 2 DIABETES MELLITUS WITHOUT COMPLICATIONS SNOMED Code(s): 84307447 Comment: - tells me that she used to be on medication before but has not require medications for months. Her A1c in 01/2019 is 6.1 -Blood glucose well controlled (10) DVT prophylaxis Current Visit: No Status: Acute Priority: Medium Onset Date: 04/28/14 Code(s): PFS1750 - SNOMED Code(s): 869004428 Comment: - Heparin SQ (11) Full code status Current Visit: No Status: Acute Priority: Medium Onset Date: 04/28/14 Code(s): Z78.9 - OTHER SPECIFIED HEALTH STATUS SNOMED Code(s): 201271852 Comment: Status and Disposition: Inpatient Ortho and ID following Dispo: dc when medically stable; may likely need rehab Attending: Rosenda Thomas
[2019-07-12] MEDS: NS 0.9% 1000 ML** 1,000 ML IV SCH (18:01)
[2019-07-12] MEDS ORDERED: cefTRIAXone(*) 1 GM in NS 0.9% 50 ML* 50 ML IVPB SCH (20:00)
--- NOTE | 2019-07-12 20:09 | CONS ---
CONSULTATION REPORT: DATE OF CONSULT: 07/12/19 PRIMARY CARE PROVIDER: Dr. Estrada [place]. PROVIDER REQUESTING CONSULTATION: Dr. Matthew Nelson. CONSULTING SERVICE: Infectious Disease. PROVIDER: Franny Alvarado NP ATTENDING PROVIDER: Dr. Jose Hernandez.* (DICTATED BY FRANNY ALVARADO NP) REASON FOR CONSULT: Staph aureus bacteremia and left hip pain. IMPRESSION: 1. Staphylococcus aureus bacteremia. The patient appears to have 4/4 bottles positive for gram-positive cocci, which is positive for Staphylococcus aureus by PCR. Suspect this will likely be methicillin-sensitive Staphylococcus aureus. This is in the setting of left hip pain and suspected left septic hip. She has a transthoracic echocardiogram planning for today. She is noted to have leukocytosis, afebrile. Currently, she is reporting neck pain, but has no point tenderness in her neck or back. There is low suspicion for epidural abscess or spine infection at this time. 2. Left hip pain. Hip pain has been going on since December, known avascular necrosis. Concern for a septic [place] left hip, in the setting of Staphylococcus aureus bacteremia. The patient has had aspiration of her hip by ultrasound earlier today and the fluid count is currently pending. The patient has pain with movement. Again, she is afebrile with mild leukocytosis. She is currently on cefazolin. Her CRP is significantly elevated at 237. 3. Alcoholic liver cirrhosis. The patient is noted to have a large abdomen in the setting of known cirrhosis with a positive fluid wave. If fluid culture from the hip doesn't explain her symptoms, we should consider SBP. 4. Diabetes mellitus type 2. The patient states that she was "cured" by Dr. Keita. 5. History of left hip avascular necrosis. 6. VANCOMYCIN allergy caused itching rash, PENICILLIN caused swelling, BACTRIM allergy, ERYTHROMYCIN caused vomiting, and SULFA caused gastrointestinal upset. RECOMMENDATIONS/PLAN: Recommend cefazolin 2 g IV every 8 hours. The patient should have a transthoracic echocardiogram to evaluate for endocarditis in the setting of what appears to be Staph aureus bacteremia. She is currently complaining of neck pain, but has no nuchal rigidity, no point tenderness; previously had complained of back pain, but no point tenderness on her back. I would have a low threshold to get an MRI of her spine to rule out epidural abscess in the setting of her bacteremia or spine infection. She should be followed closely by Orthopedics for left hip washout if she has a septic left hip. HISTORY OF PRESENT ILLNESS: Ms. Syed is a 68-year-old female with past medical history significant for alcoholic liver cirrhosis, history of diabetes, esophageal varices with banding, chronic back pain, restless legs syndrome, history of TIA, left hip avascular necrosis, history of pubic rami fractures, chronic pain and history of CVA. Ms. Syed states that she has been having left hip pain since February that has progressively worsened requiring her initially to walk with a walker and then being unable to bear weight on the hip. She does have a history of avascular necrosis in this hip diagnosed within the past couple months. She follows with the pain clinic for pain management. Due to developing inability to ambulate, she presented to the emergency room for further evaluation. While in the emergency room, she had labs showing mild leukocytosis of 11.5, significantly elevated CRP of 237.61. She was noted to have elevated total bilirubin, hyponatremia. She had urinalysis showing no blood, negative nitrites, 2+ leukocyte esterase, wbc's 3+ , squamous epithelial cells present, bacteria 2+. She was referred to the hospitalist service for admission. While in the hospital, she continued to have left hip pain and continued to have leukocytosis. She was initially treated with ceftriaxone for presumed urinary tract infection. She was felt to have left hip pain secondary to avascular necrosis and was seen in consultation by Dr. Rothman. Additionally, she was felt to be dehydrated and treated for her hyponatremia with IV fluids. She underwent ultrasound-guided left hip aspiration with fluid counts pending at the time of consultation. Additionally, she had blood cultures that returned with 4/4 bottles with gram-positive cocci resembling Staph aureus. The patient denies fevers, chills, nausea, vomiting, diarrhea or urinary symptoms such as urgency, frequency, dysuria. She reports neck discomfort for the past few days. She is currently able to move her neck. There is no point tenderness. Additionally, she is reporting left hip pain that has been ongoing for approximately 4 to 5 months as previously stated. PAST MEDICAL HISTORY: 1. Alcoholic liver cirrhosis. 2. Diabetes mellitus type 2, the patient states resolved. 3. Esophageal varices, status post banding. 4. Chronic back pain. 5. Restless legs syndrome. 6. TIA. 7. CVA. 8. Pubic rami fracture. PAST SURGICAL HISTORY: 1. Status post spinal fusion in 1993. 2. Status post hysterectomy and oophorectomy in 2019. 3. Status post bilateral cataract extractions. MEDICATIONS: Home medications: 1. Rifaximin 200 mg by mouth twice daily. 2. Lyrica 25 mg by mouth 3 times daily. 3. Fentanyl patch 25 mcg an hour, 25 mcg transdermal every 72 hours. 4. Spironolactone 200 mg by mouth daily. 5. Baclofen 10 mg by mouth twice daily. 6. Oxycodone 10 mg by mouth every 4 to 6 hours as needed for pain. 7. Lactulose 30 mL by mouth every 4 hours as needed for constipation. 8. Pantoprazole 20 mg by mouth daily. 9. Vitamin D 2000 units by mouth every other day. 10. Ocuvite 1 capsule by mouth daily. 11. Remeron 30 mg by mouth at bedtime. 12. Ferrous sulfate 325 mg by mouth daily. 13. Magnesium chloride 71.5/119 mg by mouth daily. 14. Zinc 50 mg by mouth twice daily. 15. Vitamin E 200 units by mouth daily. 16. Calcium carbonate 600 mg by mouth twice daily. 17. Fosamax 70 mg by mouth weekly. 18. Triamcinolone 0.5% cream apply topical twice daily. 19. Ammonium lactate 12% apply topical daily as needed for dry skin. 20. Potassium chloride 20 mEq by mouth 3 times daily. 21. Pantoprazole 40 mg by mouth daily. 22. Furosemide 120 mg by mouth daily. Hospital medications: 1. Lac-Hydrin 12% apply topical daily as needed for dry skin. 2. Baclofen 10 mg by mouth twice daily. 3. Calcium carbonate 625 mg by mouth twice daily. 4. Cefazolin 2 g IV every 8 hours. 5. Vitamin D 2000 units by mouth every other day. 6. Fentanyl patch 50 mcg transdermal every 72 hours. 7. Ferrous sulfate 325 mg by mouth daily. 8. Heparin sodium 5000 units subcutaneous every 8 hours. 9. Lactulose 30 mL by mouth twice daily. 10. Magnesium chloride 128 mg by mouth daily. 11. Remeron 30 mg by mouth daily. 12. Oxycodone 10 mg by mouth every 4 hours as needed for pain. 13. Pantoprazole 40 mg by mouth daily. 14. Lyrica 25 mg by mouth 3 times daily. 15. Rifaximin 200 mg by mouth twice daily. 16. Sodium chloride 100 mL intravenously an hour. ALLERGIES: 1. MORPHINE. 2. VANCOMYCIN caused rash and itching. 3. LORAZEPAM. 4. MELOXICAM. 5. PENICILLIN caused swelling. 6. BACTRIM. 7. ACETAMINOPHEN. 8. ASPIRIN. 9. ERYTHROMYCIN caused vomiting. 10. NSAIDS. 11. SULFA caused GI upset. FAMILY HISTORY: Denies family history of recurrent or resistant infections or coronary artery disease. Mother with a history of diabetes. No family history of cancer. SOCIAL HISTORY: Denies alcohol or recreational drug use. She is a former smoker, quitting 4 years ago. Prior to that, she had half a pack 30-year smoking history. REVIEW OF SYSTEMS: I performed a 10-point review of systems. All the pertinent positives and negatives are mentioned in the history of present illness. The remaining review of systems are negative. PHYSICAL EXAM: Vital Signs: Temperature 97.7, heart rate 94, respiratory rate 18, O2 sat 94% on room air, blood pressure 87/56. General Appearance: Chronically ill-appearing, lying in bed, in no acute distress. Head: Normocephalic, atraumatic. EENT: Extraocular movements are intact. No subconjunctival hemorrhage. Dry mucous membranes. Neck: Supple. No lymphadenopathy. There is no nuchal rigidity. The patient has full range of motion. Neurological: Alert and oriented. Cranial nerves II through XII are grossly intact. She is able to move all extremities, but has limited movement in the left hip and lower extremity. Cardiovascular: Regular rate and rhythm. S1 and S2 present. No murmurs, rubs, or gallops heard. Respiratory: No accessory muscle use. The lungs are clear to auscultation bilaterally. Abdomen : Bowel sounds are present. Abdomen is soft, nontender. It is distended with a positive fluid wave. Extremities: Trace bilateral lower extremity edema. Musculoskeletal: No clubbing or cyanosis noted. Psychological: Calm and cooperative. Skin: Bilateral lower extremities with changes consistent with venous stasis and chronic lymph drainage. She has multiple areas with dry eschar in addition to dried yellow drainage. DIAGNOSTIC STUDIES/LAB DATA: Sodium 126, potassium 3.7, chloride 99, CO2 of 19 , BUN 8, creatinine 0.44, glucose 90. White blood cell count 11.1, hemoglobin 11.3, hematocrit 34, platelet count 202. CRP 237.61 on admission. Please see impression and recommendations outlined above, recommendations have been discussed with Dr. Rosenda Thomas. Thank you for asking us to see Ms. Syed in consultation. The case has been discussed with my attending, Dr. Jose Hernandez, who agrees with the plan of care. Reviewed by HAFSA PATTERSON-Ralf 07/18/19 2042 [id number]/[facility] #: [id number] MTDKm
[2019-07-12] MEDS: Mirtazapine TAB* 15 MG PO SCH (20:58)
[2019-07-13] MEDS: ceFAZolin 2 GM PREMIX in ORs 2 GM/50 ML BAG IVPB SCH ×3 (03:10→20:22)
[2019-07-13 04:44] LABS: Hematocrit 33 % (35-47); Hemoglobin 10.8 g/dL (12.0-16.0); Mean Corpuscular HGB Conc 33 g/dL (31-36); Mean Corpuscular Hemoglobin 29 pg (27-31); Mean Corpuscular Volume 88 fL (80-97); Mean Platelet Volume 7.5 fL (7.4-10.4); Platelet Count 226 10^3/uL (150-450); Red Blood Count 3.68 10^6 /uL (3.70-4.87); Red Cell Distribution Width 18 % (10-15); White Blood Count 10.6 10^3/uL (3.5-10.8)
[2019-07-13 04:57] LABS: BUN/Creatinine Ratio 16.4 (8-20); Calcium 7.8 mg/dL (8.6-10.3); EGFR African American 133.8 (>60); EGFR Non-African American 110.6 (>60); Potassium 3.4 mmol/L (3.5-5.0)
[2019-07-13] MEDS: Heparin VIAL(*) 5000 UNITS/ML VIAL (FIVE THOUSAND) SUBCUT SCH ×3 (05:08→20:31)
[2019-07-13 05:19] LABS: Polychromasia 2+
[2019-07-13 05:20] LABS: ABS Eosinophils 0.1 10^3/ul (0-0.6); ABS Lymphocytes 0.7 10^3/ul (1.0-4.8); ABS Monocytes 0.6 10^3/ul (0-0.8); ABS Neutrophils 9.1 10^3/ul (1.5-7.7); Eosinophil % 1.2 %; Lymphocyte % 6.5 %
[2019-07-13] MEDS: fentaNYL Patch Check Q Shift 1 NOTE FOLLOW UP SCH ×2 (06:39→19:56)
[2019-07-13] MEDS: NS 0.9% 1000 ML** 1,000 ML IV SCH ×2 (08:00→20:20)
[2019-07-13] MEDS: Ferrous Sulfate TAB* 325 MG PO SCH (08:20)
[2019-07-13] MEDS: Pregabalin 25 mg CAP (*) PO SCH ×3 (08:21→20:29)
[2019-07-13] MEDS: Baclofen TAB* 10 MG PO SCH ×2 (08:21→20:29)
[2019-07-13] MEDS: Magnesium Chloride EC TAB* 64 MG PO SCH (08:21)
[2019-07-13] MEDS: Calcium Carbonate TAB* 1250 MG (CALCIUM 500 MG) PO SCH ×2 (08:22→20:30)
[2019-07-13] MEDS: Cholecalciferol TAB* 1000 UNITS PO SCH (08:22)
[2019-07-13] MEDS: Pantoprazole TAB * 40 MG TAB PO SCH (08:23)
[2019-07-13] MEDS: RIFAXIMIN 200 MG PO SCH ×2 (08:23→20:31)
[2019-07-13] MEDS: Ammonium Lactate 12% 1 APPLIC TUBE TOPICAL PRN ×2 (08:27→20:41)
[2019-07-13] MEDS ORDERED: Potassium Chlor TAB* 20 MEQ TAB.ER PO ONE (09:24)
--- NOTE | 2019-07-13 10:11 | PN ---
Progress Note - Progress Note Date of Service: 07/13/19 SOAP: Subjective: [Patient examined lying in bed. She states today that her hip pain has improved some with medications. She denies CP, SOB, f/c. She does state she is constipated. Objective: General: A&Ox3. NAD lying in bed LLE: Skin is dry and intact with no erythema. She is tender to palpation over the left hip/greater troch. Her thigh and calf are soft and nontender with no palpable cords. She can f/e knee and hip minimally with some pain. + DF/PF ankle. DP pulse 2+ Assessment: [Left hip AVN and severe OA MSSA bacteremia Plan: [Patient plan discussed with Dr. Rothman today. No fluid was obtained from attempted hip aspiration. Currently there is no concern for left hip septic knee but there is AVN and severe OA. Ortho will continue to follow and if there is evidence for septic hip a washout will be planned Cont pain management Cont IV abx per ID/hosp Cont PT/OT Vital Signs Temp Pulse Resp BP Pulse Ox 97.6 F 95 18 110/78 96 07/13/19 07:15 07/13/19 07:15 07/13/19 08:21 07/13/19 07:15 07/13/19 07:15 Laboratory Last Values WBC 10.6 10^3/uL (3.5-10.8) 07/13/19 04:21 RBC 3.68 10^6 /uL (3.70-4.87) L 07/13/19 04:21 Hgb 10.8 g/dL (12.0-16.0) L 07/13/19 04:21 Hct 33 % (35-47) L 07/13/19 04:21 MCV 88 fL (80-97) 07/13/19 04:21 MCH 29 pg (27-31) 07/13/19 04:21 MCHC 33 g/dL (31-36) 07/13/19 04:21 RDW 18 % (10-15) H 07/13/19 04:21 Plt Count 226 10^3/uL (150-450) 07/13/19 04:21 MPV 7.5 fL (7.4-10.4) 07/13/19 04:21 Neut % (Auto) 86.7 % 07/13/19 04:21 Lymph % (Auto) 6.5 % 07/13/19 04:21 [place] % (Auto) 5.4 % 07/13/19 04:21 Eos % (Auto) 1.2 % 07/13/19 04:21 Baso % (Auto) 0.2 % 07/13/19 04:21 Absolute Neuts (auto) 9.1 10^3/ul (1.5-7.7) H 07/13/19 04:21 Absolute Lymphs (auto) 0.7 10^3/ul (1.0-4.8) L 07/13/19 04:21 Absolute Monos (auto) 0.6 10^3/ul (0-0.8) 07/13/19 04:21 Absolute Eos (auto) 0.1 10^3/ul (0-0.6) 07/13/19 04:21 Absolute Basos (auto) 0.0 10^3/ul (0-0.2) 07/13/19 04:21 Absolute Nucleated RBC 0.0 10^3/ul 07/13/19 04:21 Nucleated RBC % 0.0 07/13/19 04:21 Polychromasia 2+ 07/13/19 04:21 Anisocytosis 1+ 07/13/19 04:21 Macrocytosis 1+ 07/13/19 04:21 Sodium 127 mmol/L (135-145) L 07/13/19 04:21 Potassium 3.4 mmol/L (3.5-5.0) L 07/13/19 04:21 Chloride 102 mmol/L (101-111) 07/13/19 04:21 Carbon Dioxide 17 mmol/L (22-32) L 07/13/19 04:21 Anion Gap 8 mmol/L (2-11) 07/13/19 04:21 BUN 9 mg/dL (6-24) 07/13/19 04:21 Creatinine 0.55 mg/dL (0.51-0.95) 07/13/19 04:21 Est GFR ( Amer) 133.8 (>60) 07/13/19 04:21 Est GFR (Non-Af Amer) 110.6 (>60) 07/13/19 04:21 BUN/Creatinine Ratio 16.4 (8-20) 07/13/19 04:21 Glucose 89 mg/dL (70-100) 07/13/19 04:21 POC Glucose (mg/dL) 105 mg/dL (70-100) H 07/12/19 20:58 Calcium 7.8 mg/dL (8.6-10.3) L 07/13/19 04:21 Total Bilirubin 1.10 mg/dL (0.2-1.0) H 07/12/19 11:45 AST 29 U/L (13-39) 07/12/19 11:45 ALT 15 U/L (7-52) 07/12/19 11:45 Alkaline Phosphatase 234 U/L (34-104) H 07/12/19 11:45 C-Reactive Protein 237.61 mg/L (<8.01) H 07/11/19 19:52 Total Protein 7.6 g/dL (6.4-8.9) 07/12/19 11:45 Albumin 2.5 g/dL (3.2-5.2) L 07/12/19 11:45 Globulin 5.1 g/dL (2-4) H 07/12/19 11:45 Albumin/Globulin Ratio 0.5 (1-3) L 07/12/19 11:45 Urine Color Yellow 07/11/19 11:25 Urine Appearance Cloudy 07/11/19 11:25 Urine pH 7.0 (5-9) 07/11/19 11:25 Ur Specific [place] 1.008 (1.010-1.030) L 07/11/19 11:25 Urine Protein Negative (Negative) 07/11/19 11:25 Urine Ketones Negative (Negative) 07/11/19 11:25 Urine Blood Negative (Negative) 07/11/19 11:25 Urine Nitrate Negative (Negative) 07/11/19 11:25 Urine Bilirubin Negative (Negative) 07/11/19 11:25 Urine Urobilinogen Positive (Negative) A 07/11/19 11:25 Ur Leukocyte Esterase 2+ (Negative) A 07/11/19 11:25 Urine WBC (Auto) 3+(>20/hpf) (Absent) A 07/11/19 11:25 Urine RBC (Auto) Absent (Absent) 07/11/19 11:25 Ur Squamous Epith Cells Present (Absent) A 07/11/19 11:25 Urine Bacteria 2+ (Absent) A 07/11/19 11:25 Urine Glucose Negative (Negative) 07/11/19 11:25 Fluid Source Synovial fluid 07/12/19 10:29 Fluid Volume 0.05 mL 07/12/19 10:29 Fluid Color [place] 07/12/19 10:29 Fluid Appearance Cloudy 07/12/19 10:29 Fluid WBC 3 /mcL (0-022867) 07/12/19 10:29 Fluid RBC 31880 /mcL 07/12/19 10:29 Fluid Tot Cell Count Not Reportable 07/12/19 10:29 Fluid Neutrophils TNP 07/12/19 10:29 Fluid Cell Count Rvw By 07/12/19 10:29
--- NOTE | 2019-07-13 10:40 | PN ---
Subjective Date of Service: 07/13/19 Interval History: Ms. Syed is feeling okay this morning. She c/o being tired and was sleeping on my arrival. She does report frequent urination, small volume. She does think her abdomen is bigger than normal. Has had one paracentesis in the past, a number of years ago. Denies CP, SOB, N/V. Does has a mild cough with small amount of clear/white sputum. No concerns from nursing. Family History: Unchanged from Admission Social History: Unchanged from Admission Past Medical History: Unchanged from Admission Objective Active Medications: Ammonium Lactate (Lac-Hydrin 12 %) 1 applic TOPICAL DAILY PRN DRY SKIN Baclofen (Lioresal Tab*) 10 mg PO BID EDWIGE Bisacodyl (Dulcolax Supp*) 10 mg [place] DAILY PRN CONSTIPATION Calcium Carbonate (Calcium Carbonate Tab*) 625 mg PO BID EDWIGE Cholecalciferol (Vitamin D Tab*) 2,000 units PO EVERY OTHER DAY EDWIGE Fentanyl (Duragesic Patch 50 Mcg/Hr*) 50 mcg TRANSDERM Q72H EDWIGE Ferrous Sulfate (Ferrous Sulfate Tab*) 325 mg PO DAILY EDWIGE Heparin Sodium (Porcine) (Heparin Vial(*)) 5,000 units SUBCUT Q8HR EDWIGE Sodium Chloride (Ns 0.9% 1000 Ml) 1,000 mls @ 100 mls/hr IV PER RATE EDWIGE Cefazolin Sodium/Dextrose (Kefzol 2 Gm Premix In Ors(*)) 2 gm in 50 mls @ 100 mls/hr IVPB Q8H EDWIGE Lactulose (Lactulose*) 30 ml PO BID EDWIGE Magnesium Chloride (Slow Mag Ec Tab*) 128 mg PO DAILY EDWIGE Mirtazapine (Remeron Tab*) 30 mg PO BEDTIME EDWIGE Oxycodone HCl (Roxycodone Tab*) 10 mg PO Q4H PRN PAIN - MODERATE Pantoprazole Sodium (Protonix Tab*) 40 mg PO DAILY EDWIGE Pregabalin (Lyrica 25 Mg Cap (*)) 25 mg PO TID EDWIGE Rifaximin (Xifaxan(Nf)) 200 mg PO BID EDWIGE Vital Signs - 8 hr 07/13/19 07/13/19 07/13/19 03:35 07:15 08:00 Temperature 98 F 97.6 F Pulse Rate 104 95 Respiratory 18 18 18 Rate Blood Pressure 109/54 110/78 (mmHg) O2 Sat by Pulse 93 96 Oximetry Oxygen Devices in Use Now: Nasal Cannula - 2L Appearance: Middle-aged female lying in bed in NAD Ears/Nose/Mouth/Throat: Mucous Membranes Moist Neck: NL Appearance and Movements; NL JVP, Trachea Midline Respiratory: Symmetrical Chest Expansion and Respiratory Effort, Clear to Auscultation Cardiovascular: NL Sounds; No Murmurs; No JVD, RRR Abdominal: - - Large, distended, firm, +BS Extremities: - - Mild nonpitting BLE Skin: - - Multiple abrasions to BLE Neurological: Alert and Oriented x 3 Lines/Tubes/Other Access: Clean, Dry and Intact Peripheral IV Nutrition: Taking PO's Result Diagrams: 07/13/19 04:21 07/13/19 04:21 Assess/Plan/Problems-Billing Assessment: Ms. Syed is a 68 yo F with PMH of decompensated cirrhosis 2/2 alcoholic liver disease, TIA, DM (not on medication), recent left hip avascular necrosis; presented with worsening left hip pain for 5 days associated with difficulty in weight bearing and increased urination, found to be in sepsis with MSSA bacteremia 2/2 questionable cellulitis/left septic arthritis and complicated by endocarditis. - Patient Problems (1) MSSA bacteremia Code(s): R78.81 - BACTEREMIA; B95.61 - METHICILLIN SUSCEP STAPH INFCT CAUSING DIS CLASSD [id number] Comment: - Blood culture on 07/10 growing MSSA, pending sensitivity - Suspect secondary to cellulitis or could be left hip septic arthritis - S/p Left hip aspiration on 07/11; no evidence of infection - Lumbar spine MRI unremarkable - Echo: vegetation on mitral valve with mild regurgitation - Appreciate ID consult - Surveillance culture NTD - Continue cefazolin (2) Endocarditis Code(s): I38 - ENDOCARDITIS, VALVE UNSPECIFIED Comment: - Mitral valve - Continue cefazolin (3) Sepsis Comment: - Resolved - Septic on admission with tachycardia and tachypnea - Source is MSSA bacteremia (4) Multiple wounds of skin Code(s): R23.8 - OTHER SKIN CHANGES Comment: - Chronic wounds on bilateral lower extremities - No active drainage for culture - Clean daily with soap and water and apply lotion - Continue cefazolin (5) Avascular necrosis of bone of left hip Code(s): M87.052 - IDIOPATHIC ASEPTIC NECROSIS OF LEFT FEMUR Comment: - Pain resolved at this point - Present for a few months; was following with Dr. Jackson and is taking fentanyl, oxycodone, pregabalin - Hip aspiration showing no e/o infection - Appreciate ortho input - If patient does not improve then may ocnsider left hip wash out (6) Hyponatremia Code(s): E87.1 - HYPO-OSMOLALITY AND HYPONATREMIA Comment: - Slowly improving - Chronic hyponatremia - Could be 2/2 cirrhosis (7) Cirrhosis Comment: - Distended abdomen with chronic liver disease changes - CT findings consistent with history of cirrhosis - Follows with Dr. Suarez as an outpatient - Pending US paracentesis - Hold diuretic given sepsis - Continue lactulose, rifaximin (8) Anemia Code(s): D64.9 - ANEMIA, UNSPECIFIED Comment: - H&H stable - Normocytic - Iron studies in 2019 shows low iron with normal ferritin and TIBC - Normal vitamin B12 and folate - Can follow outpatient for further workup (9) Anxiety and depression Code(s): F41.9 - ANXIETY DISORDER, UNSPECIFIED; F32.9 - MAJOR DEPRESSIVE DISORDER, SINGLE EPISODE, UNSPECIFIED Comment: - Continue mirtazapine (10) DVT prophylaxis Comment: - Heparin SQ (11) Full code status Code(s): Z78.9 - OTHER SPECIFIED HEALTH STATUS Comment: Status and Disposition: Inpatient. Will need long-term IV abx. Anticipate need for DANNY. Attending: Cornelia Montano
[2019-07-13] MEDS: oxyCODONE TAB* 5 MG TAB PO PRN (20:25)
[2019-07-13] MEDS: Mirtazapine TAB* 15 MG PO SCH (20:29)
[2019-07-14 05:05] LABS: ABS Basophils 0.1 10^3/ul (0-0.2); ABS Eosinophils 0.2 10^3/ul (0-0.6); ABS Lymphocytes 0.8 10^3/ul (1.0-4.8); ABS Monocytes 0.6 10^3/ul (0-0.8); ABS Neutrophils 6.4 10^3/ul (1.5-7.7); Eosinophil % 2.3 %; Hematocrit 33 % (35-47); Hemoglobin 10.8 g/dL (12.0-16.0); Lymphocyte % 10.2 %; Mean Corpuscular HGB Conc 33 g/dL (31-36); Mean Corpuscular Hemoglobin 29 pg (27-31); Mean Corpuscular Volume 88 fL (80-97); Mean Platelet Volume 7.3 fL (7.4-10.4); Platelet Count 213 10^3/uL (150-450); Red Blood Count 3.72 10^6 /uL (3.70-4.87); Red Cell Distribution Width 18 % (10-15); White Blood Count 8.1 10^3/uL (3.5-10.8)
[2019-07-14] MEDS: ceFAZolin 2 GM PREMIX in ORs 2 GM/50 ML BAG IVPB SCH ×4 (05:08→21:31)
[2019-07-14] MEDS: oxyCODONE TAB* 5 MG TAB PO PRN ×3 (05:11→17:04)
[2019-07-14] MEDS: Heparin VIAL(*) 5000 UNITS/ML VIAL (FIVE THOUSAND) SUBCUT SCH (05:11)
[2019-07-14 05:22] LABS: BUN/Creatinine Ratio 15.2 (8-20); Calcium 7.6 mg/dL (8.6-10.3); EGFR African American 164.5 (>60); EGFR Non-African American 135.9 (>60); Potassium 3.5 mmol/L (3.5-5.0)
[2019-07-14] MEDS: fentaNYL Patch Check Q Shift 1 NOTE FOLLOW UP SCH ×2 (07:24→19:25)
--- NOTE | 2019-07-14 08:59 | PN ---
Progress Note - Progress Note Date of Service: 07/14/19 SOAP: Subjective: Patient examined lying in bed. She states today that her hip pain has improved some with medications. She denies CP, SOB, f/c. She does state she is constipated. Objective: General: A&Ox3. NAD lying in bed LLE: Skin is dry and intact with no erythema. She is tender to palpation over the left hip/greater troch. Her thigh and calf are soft and nontender with no palpable cords. She can f/e knee and hip minimally with some pain. + DF/PF ankle. DP pulse 2+ Assessment: [Left hip AVN and severe OA MSSA bacteremia Plan: [Patient plan discussed with Dr. Rothman today. No fluid was obtained from attempted hip aspiration. Currently there is no concern for left hip septic knee but there is AVN and severe OA. Ortho will continue to follow and if there is evidence for septic hip a washout will be planned Cont pain management Cont IV abx per ID/hosp Cont PT/OT Vital Signs Temp Pulse Resp BP Pulse Ox 97.2 F 91 16 139/76 91 07/14/19 07:43 07/14/19 07:43 07/14/19 07:43 07/14/19 07:43 07/14/19 07:43 Laboratory Last Values WBC 8.1 10^3/uL (3.5-10.8) 07/14/19 04:53 RBC 3.72 10^6 /uL (3.70-4.87) 07/14/19 04:53 Hgb 10.8 g/dL (12.0-16.0) L 07/14/19 04:53 Hct 33 % (35-47) L 07/14/19 04:53 MCV 88 fL (80-97) 07/14/19 04:53 MCH 29 pg (27-31) 07/14/19 04:53 MCHC 33 g/dL (31-36) 07/14/19 04:53 RDW 18 % (10-15) H 07/14/19 04:53 Plt Count 213 10^3/uL (150-450) 07/14/19 04:53 MPV 7.3 fL (7.4-10.4) L 07/14/19 04:53 Neut % (Auto) 78.8 % 07/14/19 04:53 Lymph % (Auto) 10.2 % 07/14/19 04:53 [place] % (Auto) 7.4 % 07/14/19 04:53 Eos % (Auto) 2.3 % 07/14/19 04:53 Baso % (Auto) 1.3 % 07/14/19 04:53 Absolute Neuts (auto) 6.4 10^3/ul (1.5-7.7) 07/14/19 04:53 Absolute Lymphs (auto) 0.8 10^3/ul (1.0-4.8) L 07/14/19 04:53 Absolute Monos (auto) 0.6 10^3/ul (0-0.8) 07/14/19 04:53 Absolute Eos (auto) 0.2 10^3/ul (0-0.6) 07/14/19 04:53 Absolute Basos (auto) 0.1 10^3/ul (0-0.2) 07/14/19 04:53 Absolute Nucleated RBC 0.0 10^3/ul 07/14/19 04:53 Nucleated RBC % 0.0 07/14/19 04:53 Polychromasia 2+ 07/13/19 04:21 Anisocytosis 1+ 07/13/19 04:21 Macrocytosis 1+ 07/13/19 04:21 Sodium 131 mmol/L (135-145) L 07/14/19 04:53 Potassium 3.5 mmol/L (3.5-5.0) 07/14/19 04:53 Chloride 105 mmol/L (101-111) 07/14/19 04:53 Carbon Dioxide 18 mmol/L (22-32) L 07/14/19 04:53 Anion Gap 8 mmol/L (2-11) 07/14/19 04:53 BUN 7 mg/dL (6-24) 07/14/19 04:53 Creatinine 0.46 mg/dL (0.51-0.95) L 07/14/19 04:53 Est GFR ( Amer) 164.5 (>60) 07/14/19 04:53 Est GFR (Non-Af Amer) 135.9 (>60) 07/14/19 04:53 BUN/Creatinine Ratio 15.2 (8-20) 07/14/19 04:53 Glucose 80 mg/dL (70-100) 07/14/19 04:53 POC Glucose (mg/dL) 105 mg/dL (70-100) H 07/12/19 20:58 Calcium 7.6 mg/dL (8.6-10.3) L 07/14/19 04:53 Total Bilirubin 1.10 mg/dL (0.2-1.0) H 07/12/19 11:45 AST 29 U/L (13-39) 07/12/19 11:45 ALT 15 U/L (7-52) 07/12/19 11:45 Alkaline Phosphatase 234 U/L (34-104) H 07/12/19 11:45 C-Reactive Protein 237.61 mg/L (<8.01) H 07/11/19 19:52 Total Protein 7.6 g/dL (6.4-8.9) 07/12/19 11:45 Albumin 2.5 g/dL (3.2-5.2) L 07/12/19 11:45 Globulin 5.1 g/dL (2-4) H 07/12/19 11:45 Albumin/Globulin Ratio 0.5 (1-3) L 07/12/19 11:45 Urine Color [place] 07/11/19 11:25 Urine Appearance Cloudy 07/11/19 11:25 Urine pH 7.0 (5-9) 07/11/19 11:25 Ur Specific [place] 1.008 (1.010-1.030) L 07/11/19 11:25 Urine Protein Negative (Negative) 07/11/19 11:25 Urine Ketones Negative (Negative) 07/11/19 11:25 Urine Blood Negative (Negative) 07/11/19 11:25 Urine Nitrate Negative (Negative) 07/11/19 11:25 Urine Bilirubin Negative (Negative) 07/11/19 11:25 Urine Urobilinogen Positive (Negative) A 07/11/19 11:25 Ur Leukocyte Esterase 2+ (Negative) A 07/11/19 11:25 Urine WBC (Auto) 3+(>20/hpf) (Absent) A 07/11/19 11:25 Urine RBC (Auto) Absent (Absent) 07/11/19 11:25 Ur Squamous Epith Cells Present (Absent) A 07/11/19 11:25 Urine Bacteria 2+ (Absent) A 07/11/19 11:25 Urine Glucose Negative (Negative) 07/11/19 11:25 Fluid Source Synovial fluid 07/12/19 10:29 Fluid Volume 0.05 mL 07/12/19 10:29 Fluid Color [place] 07/12/19 10:29 Fluid Appearance Cloudy 07/12/19 10:29 Fluid WBC 3 /mcL (0-555520) 07/12/19 10:29 Fluid RBC 92258 /mcL 07/12/19 10:29 Fluid Tot Cell Count Not Reportable 07/12/19 10:29 Fluid Neutrophils TNP 07/12/19 10:29 Fluid Cell Count Rvw By 07/12/19 10:29
[2019-07-14] MEDS ORDERED: Senna TAB 8.6 mg* TAB PO PRN (09:43)
[2019-07-14] MEDS ORDERED: Magnesium Hydroxide LIQ* 30 ML UDC PO PRN (09:45)
[2019-07-14] MEDS: Pregabalin 25 mg CAP (*) PO SCH ×4 (09:52→21:31)
[2019-07-14] MEDS: Magnesium Chloride EC TAB* 64 MG PO SCH (09:52)
[2019-07-14] MEDS: Calcium Carbonate TAB* 1250 MG (CALCIUM 500 MG) PO SCH ×2 (09:53→21:30)
[2019-07-14] MEDS: Pantoprazole TAB * 40 MG TAB PO SCH (09:53)
[2019-07-14] MEDS: Baclofen TAB* 10 MG PO SCH ×2 (09:58→21:30)
[2019-07-14] MEDS: Ferrous Sulfate TAB* 325 MG PO SCH (09:58)
[2019-07-14] MEDS: RIFAXIMIN 200 MG PO SCH ×2 (09:59→21:31)
[2019-07-14] MEDS: Ammonium Lactate 12% 1 APPLIC TUBE TOPICAL PRN (11:35)
[2019-07-14] MEDS: Spironolactone TAB* 25 MG PO SCH (14:48)
[2019-07-14] MEDS: Furosemide TAB* 40 MG PO SCH (14:48)
--- NOTE | 2019-07-14 15:01 | PN ---
Subjective Date of Service: 07/14/19 Interval History: No acute events overnight. Pt reports abdominal discomfort from ascites. States she's had a larger abdomen in the past, 6 years ago, which required paracentesis. Appears she was ordered for one here just before the weekend, and it is still pending. Requests we update her daughter Johnna: [phone]. Johnna reports she would be interested in pursuing STR, stating that her mother has had home PT ordered in the past and has not done as well with that. Objective Active Medications: Ammonium Lactate (Lac-Hydrin 12 %) 1 applic TOPICAL DAILY PRN PRN Reason: DRY SKIN Last Admin: 07/14/19 11:35 Dose: 1 applic Baclofen (Lioresal Tab*) 10 mg PO BID [facility] Last Admin: 07/14/19 09:58 Dose: 10 mg Calcium Carbonate (Calcium Carbonate Tab*) 625 mg PO BID [facility] Last Admin: 07/14/19 09:53 Dose: 625 mg Cholecalciferol (Vitamin D Tab*) 2,000 units PO EVERY OTHER DAY [facility] Last Admin: 07/13/19 08:22 Dose: 2,000 units Enoxaparin Sodium (Lovenox(*)) 40 mg SUBCUT BEDTIME [facility] Fentanyl (Duragesic Patch 50 Mcg/Hr*) 50 mcg TRANSDERM Q72H [facility] Last Admin: 07/12/19 00:52 Dose: 50 mcg Ferrous Sulfate (Ferrous Sulfate Tab*) 325 mg PO DAILY [facility] Last Admin: 07/14/19 09:58 Dose: 325 mg Furosemide (Lasix Tab*) 120 mg PO DAILY [facility] Last Admin: 07/14/19 14:48 Dose: 120 mg Cefazolin Sodium/Dextrose (Kefzol 2 Gm Premix In Ors(*)) 2 gm in 50 mls @ 100 mls/hr IVPB Q8H [facility] Last Admin: 07/14/19 11:30 Dose: 100 mls/hr Lactulose (Lactulose*) 30 ml PO BID [facility] Last Admin: 07/14/19 09:52 Dose: 30 ml Magnesium Chloride (Slow Mag Ec Tab*) 128 mg PO DAILY [facility] Last Admin: 07/14/19 09:52 Dose: 128 mg Magnesium Hydroxide (Milk Of Magnesia Liq*) 30 ml PO Q6H PRN PRN Reason: CONSTIPATION Mirtazapine (Remeron Tab*) 30 mg PO BEDTIME [facility] Last Admin: 07/13/19 20:29 Dose: 30 mg Oxycodone HCl (Roxycodone Tab*) 10 mg PO Q4H PRN PRN Reason: PAIN - MODERATE Last Admin: 07/14/19 12:10 Dose: 10 mg Pantoprazole Sodium (Protonix Tab*) 40 mg PO DAILY [facility] Last Admin: 07/14/19 09:53 Dose: 40 mg Pharmacy Profile Note (Fentanyl Patch Check Q Shift) 1 note FOLLOW UP 0700, 1900 [facility] Last Admin: 07/14/19 07:24 Dose: 1 note Pregabalin (Lyrica 25 Mg Cap (*)) 25 mg PO TID [facility] Last Admin: 07/14/19 14:09 Dose: Not Given Rifaximin (Xifaxan(Nf)) 200 mg PO BID [facility] Last Admin: 07/14/19 09:59 Dose: Not Given Senna (Senokot 8.6 Mg Tab*) 1 tab PO BEDTIME PRN PRN Reason: if no BM during day Spironolactone (Aldactone Tab*) 200 mg PO DAILY [facility] Last Admin: 07/14/19 14:48 Dose: 200 mg Vital Signs - 8 hr 07/14/19 07/14/19 07/14/19 07:11 07:43 09:52 Temperature 97.2 F Pulse Rate 91 Respiratory 20 16 18 Rate Blood Pressure 139/76 (mmHg) O2 Sat by Pulse 91 Oximetry 07/14/19 07/14/19 11:52 12:10 Temperature Pulse Rate Respiratory 20 21 Rate Blood Pressure (mmHg) O2 Sat by Pulse Oximetry Oxygen Devices in Use Now: None Appearance: chronically ill appearing, NAD and nontoxic Eyes: No Scleral Icterus Ears/Nose/Mouth/Throat: Clear Oropharnyx, Mucous Membranes Moist Neck: NL Appearance and Movements; NL JVP, Trachea Midline Respiratory: Symmetrical Chest Expansion and Respiratory Effort, Clear to Auscultation Cardiovascular: NL Sounds; No Murmurs; No JVD, RRR Abdominal: - - distended and firm but nontender, BS present, + fluid wave Extremities: - - 1+ pitting edema over ankle; chronic venous stasis changes Skin: - - multiple scabs over b/l lower extremities Neurological: Alert and Oriented x 3 Result Diagrams: 07/14/19 04:53 07/14/19 04:53 Microbiology and Other Data: Microbiology 07/12/19 14:06 Aerobic Blood Culture - Preliminary Blood Venous Anaerobic Blood Culture - Preliminary No Growth Day 2 07/12/19 16:30 Aerobic Blood Culture - Final Blood Venous Staphylococcus Aureus Anaerobic Blood Culture - Final Staphylococcus Aureus Blood MRSA/MSSA (PCR) - Final Mrsa Negative S.aureus Positive 07/11/19 21:58 Aerobic Blood Culture - Final Blood Venous Staphylococcus Aureus Anaerobic Blood Culture - Final Staphylococcus Aureus Blood MRSA/MSSA (PCR) - Final Mrsa Negative S.aureus Positive 07/11/19 21:58 Aerobic Blood Culture - Final Blood Venous Staphylococcus Aureus Anaerobic Blood Culture - Final Staphylococcus Aureus Blood MRSA/MSSA (PCR) - Final Mrsa Negative S.aureus Positive 07/13/19 04:31 Aerobic Blood Culture - Preliminary Blood Venous No Growth Day 1 Anaerobic Blood Culture - Preliminary No Growth Day 1 07/13/19 04:21 Aerobic Blood Culture - Preliminary Blood Venous No Growth Day 1 Anaerobic Blood Culture - Preliminary No Growth Day 1 07/11/19 11:25 Urine Culture - Final Urine No Growth (<1,000 CFU/mL) Assess/Plan/Problems-Billing Assessment: 68W with 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 Possible sources is LE cellulitis, and pt has multiple LE wounds. Lumbar MRI without osteo. - Continue cefazolin IV (07/10 - ); will need PICC - surveillance cultures have cleared - need EKG to monitor for heart block - appreciate ID and ortho (2) Avascular necrosis of bone of left hip Comment: Present for a few months; was following with Dr. Jackson and is taking fentanyl, oxycodone, pregabalin. Hip aspiration showing no e/o infection. - appreciate ortho input - if patient does not improve then may ocnsider left hip wash out (3) Multiple wounds of skin Comment: Chronic wounds on bilateral lower extremities without active drainage. - Clean daily with soap and water and apply lotion - Continue cefazolin (4) Cirrhosis Comment: From alcohol use. Likely the cause of her hyponatremia and low systolic BPs. History of HE and ascites requiring LVP. - Follows with Dr. Suarez as an outpatient - Pending US paracentesis - cont home furosemide/spironolactone - continue home lactulose, rifaximin (5) Anxiety and depression Comment: - Continue mirtazapine (6) DVT prophylaxis Comment: - Heparin SQ (7) Full code status Comment: Status and Disposition: Inpatient. Will need long-term IV abx. Anticipate need for DANNY.
[2019-07-14 18:18] LABS: Urine Appearance Clear; Urine Bilirubin Negative (Negative); Urine Blood Negative (Negative); Urine Color Straw; Urine Glucose Negative (Negative); Urine Ketones Negative (Negative); Urine Nitrite Negative (Negative); Urine Protein Negative (Negative); Urine Specific Gravity 1.004 (1.010-1.030); Urine Urobilinogen Negative (Negative)
[2019-07-14] MEDS: Enoxaparin(*) 40 MG/0.4 ML SYR SUBCUT SCH (21:29)
[2019-07-14] MEDS: Mirtazapine TAB* 15 MG PO SCH (21:30)
[2019-07-15] MEDS: fentaNYL PATCH 50 MCG/HR TRANSDERM SCH (00:40)
[2019-07-15] MEDS: ceFAZolin 2 GM PREMIX in ORs 2 GM/50 ML BAG IVPB SCH ×3 (04:13→21:15)
[2019-07-15] MEDS: oxyCODONE TAB* 5 MG TAB PO PRN ×2 (04:13→16:21)
[2019-07-15 06:08] LABS: BUN/Creatinine Ratio 14.5 (8-20); Calcium 8.1 mg/dL (8.6-10.3); EGFR African American 133.8 (>60); EGFR Non-African American 110.6 (>60); Magnesium 1.7 mg/dL (1.9-2.7)
[2019-07-15 06:25] LABS: Potassium 2.6 mmol/L (3.5-5.0)
[2019-07-15] MEDS ORDERED: Potassium Chlor TAB* 20 MEQ TAB.ER PO ONE ×2 (06:28→18:58)
[2019-07-15] MEDS: fentaNYL Patch Check Q Shift 1 NOTE FOLLOW UP SCH ×2 (06:45→19:30)
[2019-07-15] MEDS ORDERED: Magnesium Sulfate 2 GM IV* 2 GM/50 ML BAG IVPB ONE (07:13)
[2019-07-15] MEDS: KCL 20 MEQ/100 ML IVPREMIX* 20 MEQ/100 ML BAG IV SCH ×2 (08:24→13:20)
[2019-07-15] MEDS: Magnesium Chloride EC TAB* 64 MG PO SCH (08:28)
[2019-07-15] MEDS: Ferrous Sulfate TAB* 325 MG PO SCH (08:32)
[2019-07-15] MEDS: Cholecalciferol TAB* 1000 UNITS PO SCH (08:32)
[2019-07-15] MEDS: Pantoprazole TAB * 40 MG TAB PO SCH (08:33)
[2019-07-15] MEDS: Baclofen TAB* 10 MG PO SCH ×2 (08:33→21:21)
[2019-07-15] MEDS: Pregabalin 25 mg CAP (*) PO SCH ×3 (08:34→21:22)
[2019-07-15] MEDS: Spironolactone TAB* 25 MG PO SCH (09:12)
[2019-07-15] MEDS: Calcium Carbonate TAB* 1250 MG (CALCIUM 500 MG) PO SCH ×2 (09:13→21:16)
[2019-07-15] MEDS: RIFAXIMIN 200 MG PO SCH ×2 (09:15→21:23)
--- NOTE | 2019-07-15 09:47 | PN ---
Subjective Date of Service: 07/15/19 Interval History: No acute events overnight. Significant hypoK after re-initiation of furosemide. Still pending US-guided paracentesis. Pending ID clearance for pt to receive PICC line for extended IV antibiotics for known endocarditis. Pending PT evaluation - likely will need rehab. Patient reports one BM 2 days ago. Abdomen feels much better after para. Hip pain is only on movement. Objective Active Medications: Ammonium Lactate (Lac-Hydrin 12 %) 1 applic TOPICAL DAILY PRN PRN Reason: DRY SKIN Last Admin: 07/14/19 11:35 Dose: 1 applic Baclofen (Lioresal Tab*) 10 mg PO BID [facility] Last Admin: 07/15/19 08:33 Dose: 10 mg Calcium Carbonate (Calcium Carbonate Tab*) 625 mg PO BID [facility] Last Admin: 07/15/19 09:13 Dose: 625 mg Cholecalciferol (Vitamin D Tab*) 2,000 units PO EVERY OTHER DAY [facility] Last Admin: 07/15/19 08:32 Dose: 2,000 units Enoxaparin Sodium (Lovenox(*)) 40 mg SUBCUT BEDTIME [facility] Last Admin: 07/14/19 21:29 Dose: 40 mg Fentanyl (Duragesic Patch 50 Mcg/Hr*) 50 mcg TRANSDERM Q72H [facility] Last Admin: 07/15/19 00:40 Dose: 50 mcg Ferrous Sulfate (Ferrous Sulfate Tab*) 325 mg PO DAILY [facility] Last Admin: 07/15/19 08:32 Dose: 325 mg Furosemide (Lasix Tab*) 120 mg PO DAILY [facility] Last Admin: 07/14/19 14:48 Dose: 120 mg Cefazolin Sodium/Dextrose (Kefzol 2 Gm Premix In Ors(*)) 2 gm in 50 mls @ 100 mls/hr IVPB Q8H [facility] Last Admin: 07/15/19 04:13 Dose: 100 mls/hr Potassium Chloride (Potassium Chloride 20 Meq/100 Ml Ivpremix*) 20 meq in 100 mls @ 50 mls/hr IV Q2H [facility] Stop: 07/15/19 10:59 Last Admin: 07/15/19 08:24 Dose: 50 mls/hr Lactulose (Lactulose*) 30 ml PO BID [facility] Last Admin: 07/15/19 08:27 Dose: 30 ml Magnesium Chloride (Slow Mag Ec Tab*) 128 mg PO DAILY [facility] Last Admin: 07/15/19 08:28 Dose: 128 mg Magnesium Hydroxide (Milk Of Magnesia Liq*) 30 ml PO Q6H PRN PRN Reason: CONSTIPATION Mirtazapine (Remeron Tab*) 30 mg PO BEDTIME [facility] Last Admin: 07/14/19 21:30 Dose: 30 mg Oxycodone HCl (Roxycodone Tab*) 10 mg PO Q4H PRN PRN Reason: PAIN - MODERATE Last Admin: 07/15/19 04:13 Dose: 10 mg Pantoprazole Sodium (Protonix Tab*) 40 mg PO DAILY [facility] Last Admin: 07/15/19 08:33 Dose: 40 mg Pharmacy Profile Note (Fentanyl Patch Check Q Shift) 1 note FOLLOW UP 0700, 1900 [facility] Last Admin: 07/15/19 06:45 Dose: 1 note Pregabalin (Lyrica 25 Mg Cap (*)) 25 mg PO TID [facility] Last Admin: 07/15/19 08:34 Dose: Not Given Rifaximin (Xifaxan(Nf)) 200 mg PO BID [facility] Last Admin: 07/15/19 09:15 Dose: Not Given Senna (Senokot 8.6 Mg Tab*) 1 tab PO BEDTIME PRN PRN Reason: if no BM during day Spironolactone (Aldactone Tab*) 200 mg PO DAILY [facility] Last Admin: 07/15/19 09:12 Dose: 200 mg Vital Signs - 8 hr 07/15/19 07/15/19 07/15/19 02:00 04:13 06:46 Temperature 97.3 F Pulse Rate 90 Respiratory 18 20 20 Rate Blood Pressure 97/64 (mmHg) O2 Sat by Pulse 92 Oximetry 07/15/19 07/15/19 07/15/19 07:15 08:46 09:20 Temperature 98.4 F Pulse Rate 88 Respiratory 16 16 Rate Blood Pressure 112/64 110/58 (mmHg) O2 Sat by Pulse 92 Oximetry Oxygen Devices in Use Now: Nasal Cannula Appearance: chronically ill-appearing, no acute distress, pleasant Eyes: No Scleral Icterus Ears/Nose/Mouth/Throat: Clear Oropharnyx, Mucous Membranes Moist Neck: NL Appearance and Movements; NL JVP, Trachea Midline Respiratory: Symmetrical Chest Expansion and Respiratory Effort, Clear to Auscultation Cardiovascular: NL Sounds; No Murmurs; No JVD, RRR Abdominal: - - less distended, no longer tense Extremities: - - 1+ pitting edema b/l, multiple scabs and superficial ulcerations over LEs with chronic venous changes Neurological: Alert and Oriented x 3 Result Diagrams: 07/14/19 04:53 07/15/19 05:35 Microbiology and Other Data: Microbiology 07/12/19 14:06 Aerobic Blood Culture - Preliminary Blood Venous Anaerobic Blood Culture - Preliminary No Growth Day 2 07/12/19 16:30 Aerobic Blood Culture - Final Blood Venous Staphylococcus Aureus Anaerobic Blood Culture - Final Staphylococcus Aureus Blood MRSA/MSSA (PCR) - Final Mrsa Negative S.aureus Positive 07/11/19 21:58 Aerobic Blood Culture - Final Blood Venous Staphylococcus Aureus Anaerobic Blood Culture - Final Staphylococcus Aureus Blood MRSA/MSSA (PCR) - Final Mrsa Negative S.aureus Positive 07/11/19 21:58 Aerobic Blood Culture - Final Blood Venous Staphylococcus Aureus Anaerobic Blood Culture - Final Staphylococcus Aureus Blood MRSA/MSSA (PCR) - Final Mrsa Negative S.aureus Positive 07/13/19 04:31 Aerobic Blood Culture - Preliminary Blood Venous No Growth Day 1 Anaerobic Blood Culture - Preliminary No Growth Day 1 07/13/19 04:21 Aerobic Blood Culture - Preliminary Blood Venous No Growth Day 1 Anaerobic Blood Culture - Preliminary No Growth Day 1 07/11/19 11:25 Urine Culture - Final Urine No Growth (<1,000 CFU/mL) Assess/Plan/Problems-Billing Assessment: 68W with 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 Possible sources is LE cellulitis, and pt has multiple LE wounds. Lumbar MRI without osteo. - Continue cefazolin IV (07/10 - 08/21); will need PICC - surveillance cultures have cleared - need EKG to monitor for heart block - appreciate ID (2) Avascular necrosis of bone of left hip Comment: Present for a few months; was following with Dr. Jackson and is taking fentanyl, oxycodone, pregabalin. Hip aspiration showing no e/o infection. - appreciate ortho input - if patient does not improve, may consider left hip wash out - appreciate ortho recs (3) Multiple wounds of skin Comment: Chronic wounds on bilateral lower extremities without active drainage. - Clean daily with soap and water and apply lotion - Continue cefazolin (4) Cirrhosis Comment: From alcohol use. Likely the cause of her hyponatremia and low systolic BPs. History of HE and ascites requiring LVP. s/p LVP here on 07/14. - Follows with Dr. Suarez as an outpatient - cont home furosemide/spironolactone - continue home lactulose, rifaximin (5) Anxiety and depression Comment: - Continue mirtazapine (6) DVT prophylaxis Comment: - Heparin SQ (7) Full code status Comment: Status and Disposition: Inpatient. Will need long-term IV abx. Anticipate need for DANNY.
--- NOTE | 2019-07-15 11:29 | PN ---
Progress Note - Progress Note Date of Service: 07/15/19 SOAP: Subjective: CC: Endocarditis HPI: Ms. Syed is a 68 yo female with PMH significant for alcoholic liver disease, TIA, DM2, left hip avascular necrosis; who presented to the hospital with worsening left hip pain. Denies left hip pain at rest, continues to have low back pain. Denies fever, chills, nausea, vomiting, or diarrhea. Objective: Vital Signs - 8 hr 07/15/19 07/15/19 07/15/19 04:13 06:46 07:15 Temperature 98.4 F Pulse Rate 88 Respiratory 20 20 16 Rate Blood Pressure 112/64 (mmHg) O2 Sat by Pulse 92 Oximetry Physical Exam: General: NAD, laying in bed Neurological: Alert and Oriented HEENT: Moist MM Cardiovascular: Bilateral LE edema Respiratory: Lung sounds clear bilateral Abdominal: ABD large, distended and gravid appearing, non tender MSK: No tenderness with palpation of the left hip. Passive ROM of left knee without pain, no effusion or pain with palpation of the knee. Negative left log roll. Discomfort with passive left hip flexion. Skin: Bilateral LE with dry skin, dry ulcers, and dried lymph drainage. Laboratory Results - last 24 hr 07/14/19 07/15/19 18:00 05:35 Sodium 134 L Potassium 2.6 L* Chloride 102 Carbon Dioxide 21 L Anion Gap 11 BUN 8 Creatinine 0.55 Est GFR ( Amer) 133.8 Est GFR (Non-Af Amer) 110.6 BUN/Creatinine Ratio 14.5 Glucose 83 Calcium 8.1 L Magnesium 1.7 L Urine Color Straw Urine Appearance Clear Urine pH 6.0 Ur Specific [place] 1.004 L Urine Protein Negative Urine Ketones Negative Urine Blood Negative Urine Nitrate Negative Urine Bilirubin Negative Urine Urobilinogen Negative Ur Leukocyte Esterase Negative Urine Glucose Negative Microbiology 07/12/19 14:06 Aerobic Blood Culture - Preliminary Blood Venous Staphylococcus Aureus Anaerobic Blood Culture - Preliminary No Growth Day 2 07/13/19 04:21 Aerobic Blood Culture - Preliminary Blood Venous No Growth Day 2 Anaerobic Blood Culture - Preliminary No Growth Day 2 07/13/19 04:31 Aerobic Blood Culture - Preliminary Blood Venous No Growth Day 2 Anaerobic Blood Culture - Preliminary No Growth Day 2 07/12/19 16:30 Aerobic Blood Culture - Final Blood Venous Staphylococcus Aureus Anaerobic Blood Culture - Final Staphylococcus Aureus Blood MRSA/MSSA (PCR) - Final Mrsa Negative S.aureus Positive 07/11/19 21:58 Aerobic Blood Culture - Final Blood Venous Staphylococcus Aureus Anaerobic Blood Culture - Final Staphylococcus Aureus Blood MRSA/MSSA (PCR) - Final Mrsa Negative S.aureus Positive 07/11/19 21:58 Aerobic Blood Culture - Final Blood Venous Staphylococcus Aureus Anaerobic Blood Culture - Final Staphylococcus Aureus Blood MRSA/MSSA (PCR) - Final Mrsa Negative S.aureus Positive 07/11/19 11:25 Urine Culture - Final Urine No Growth (<1,000 CFU/mL) Assessment: 1. Staph aureus bacteremia, MSSA. Initial blood cultures with 4/4 bottles positive. No prosthetic material present. Repeat cultures from 06/13 with 3/4 bottles positive. Repeat cultures from 07/12 with no growth to date. SHARAN with MV vegetation. Reports back pain, no tenderness with palpation. MRI with no signs of spine infection 2. MV endocarditis, [place] valve. TTE with vegetation on the mitral valve. Noted to have MSSA bacteremia. 3. Left hip pain. Secondary to avascular necrosis. 4. Cirrhosis. Secondary to alcohol use. Paracentesis pending. 5. DM2. 6. Vancomycin, PCN, Bactrim, and Sulfa allergies. Plan: Continue Cefazolin 2 gm IV Q8H, Day . Weekly labs while on IV ABX: CBC, CMP , and CRP. She will need to have a followup echo close to the end of the course of ABX. Followup with ID outpatient.
--- NOTE | 2019-07-15 15:00 | PN ---
Progress Note - Progress Note Date of Service: 07/15/19 SOAP: Subjective: []Patient seen at bedside. Her left hip is not currently painful at rest, reports she was just given pain medication which is working well. Her low back is the predominant area of pain. Denies fever, chills, CP, SOB, dizziness, nausea. Objective: []General: A&Ox3. NAD lying in bed LLE: Skin is CDI with no erythema. She is not tender to palpation over the left hip/greater troch today. Her thigh and calf are soft and nontender with no palpable cords. She passive knee and hip 0-40 degrees with audible cracking from the hip but no reported pain. + DF/PF ankle. DP pulse 2+ Assessment: [Left hip AVN and severe OA MSSA bacteremia Plan: No fluid was obtained from attempted hip aspiration. No increased concern for septic hip, though Ortho will continue to follow and if there is evidence for septic hip a washout will be planned. If her predominant source of pain becomes her left hip please alert ortho. Cont pain management Cont IV abx per ID/hosp Cont PT/OT Vital Signs Temp 97.4 F 07/15/19 13:09 Pulse 88 07/15/19 13:09 Resp 16 07/15/19 13:09 BP 90/50 07/15/19 13:09 Pulse Ox 92 07/15/19 13:09 Intake & Output 07/14/19 07/15/19 07/15/19 18:59 06:59 18:59 Intake Total 560 1090 120 Output Total 1125 3975 400 Balance -565 -2885 -280 Weight 157 lb 12.8 oz Intake: IV Fluids 30 30 NS (0.9%) 30 30 IVPB 50 100 ABX - CEFAZOLIN 50 100 Oral 480 960 120 Output: Urine 825 Vasquez 3150 400 Residual 1125 16 Fr 1125 Other: # Bowel Movements 0 Laboratory Last Values WBC 8.1 10^3/uL (3.5-10.8) 07/14/19 04:53 RBC 3.72 10^6 /uL (3.70-4.87) 07/14/19 04:53 Hgb 10.8 g/dL (12.0-16.0) L 07/14/19 04:53 Hct 33 % (35-47) L 07/14/19 04:53 MCV 88 fL (80-97) 07/14/19 04:53 MCH 29 pg (27-31) 07/14/19 04:53 MCHC 33 g/dL (31-36) 07/14/19 04:53 RDW 18 % (10-15) H 07/14/19 04:53 Plt Count 213 10^3/uL (150-450) 07/14/19 04:53 MPV 7.3 fL (7.4-10.4) L 07/14/19 04:53 Neut % (Auto) 78.8 % 07/14/19 04:53 Lymph % (Auto) 10.2 % 07/14/19 04:53 [place] % (Auto) 7.4 % 07/14/19 04:53 Eos % (Auto) 2.3 % 07/14/19 04:53 Baso % (Auto) 1.3 % 07/14/19 04:53 Absolute Neuts (auto) 6.4 10^3/ul (1.5-7.7) 07/14/19 04:53 Absolute Lymphs (auto) 0.8 10^3/ul (1.0-4.8) L 07/14/19 04:53 Absolute Monos (auto) 0.6 10^3/ul (0-0.8) 07/14/19 04:53 Absolute Eos (auto) 0.2 10^3/ul (0-0.6) 07/14/19 04:53 Absolute Basos (auto) 0.1 10^3/ul (0-0.2) 07/14/19 04:53 Absolute Nucleated RBC 0.0 10^3/ul 07/14/19 04:53 Nucleated RBC % 0.0 07/14/19 04:53 Polychromasia 2+ 07/13/19 04:21 Anisocytosis 1+ 07/13/19 04:21 Macrocytosis 1+ 07/13/19 04:21 Sodium 134 mmol/L (135-145) L 07/15/19 05:35 Potassium 2.6 mmol/L (3.5-5.0) L* 07/15/19 05:35 Chloride 102 mmol/L (101-111) 07/15/19 05:35 Carbon Dioxide 21 mmol/L (22-32) L 07/15/19 05:35 Anion Gap 11 mmol/L (2-11) 07/15/19 05:35 BUN 8 mg/dL (6-24) 07/15/19 05:35 Creatinine 0.55 mg/dL (0.51-0.95) 07/15/19 05:35 Est GFR ( Amer) 133.8 (>60) 07/15/19 05:35 Est GFR (Non-Af Amer) 110.6 (>60) 07/15/19 05:35 BUN/Creatinine Ratio 14.5 (8-20) 07/15/19 05:35 Glucose 83 mg/dL (70-100) 07/15/19 05:35 POC Glucose (mg/dL) 105 mg/dL (70-100) H 07/12/19 20:58 Calcium 8.1 mg/dL (8.6-10.3) L 07/15/19 05:35 Magnesium 1.7 mg/dL (1.9-2.7) L 07/15/19 05:35 Total Bilirubin 1.10 mg/dL (0.2-1.0) H 07/12/19 11:45 AST 29 U/L (13-39) 07/12/19 11:45 ALT 15 U/L (7-52) 07/12/19 11:45 Alkaline Phosphatase 234 U/L (34-104) H 07/12/19 11:45 C-Reactive Protein 237.61 mg/L (<8.01) H 07/11/19 19:52 Total Protein 7.6 g/dL (6.4-8.9) 07/12/19 11:45 Albumin 2.5 g/dL (3.2-5.2) L 07/12/19 11:45 Globulin 5.1 g/dL (2-4) H 07/12/19 11:45 Albumin/Globulin Ratio 0.5 (1-3) L 07/12/19 11:45 Urine Color Straw 07/14/19 18:00 Urine Appearance Clear 07/14/19 18:00 Urine pH 6.0 (5-9) 07/14/19 18:00 Ur Specific [place] 1.004 (1.010-1.030) L 07/14/19 18:00 Urine Protein Negative (Negative) 07/14/19 18:00 Urine Ketones Negative (Negative) 07/14/19 18:00 Urine Blood Negative (Negative) 07/14/19 18:00 Urine Nitrate Negative (Negative) 07/14/19 18:00 Urine Bilirubin Negative (Negative) 07/14/19 18:00 Urine Urobilinogen Negative (Negative) 07/14/19 18:00 Ur Leukocyte Esterase Negative (Negative) 07/14/19 18:00 Urine WBC (Auto) 3+(>20/hpf) (Absent) A 07/11/19 11:25 Urine RBC (Auto) Absent (Absent) 07/11/19 11:25 Ur Squamous Epith Cells Present (Absent) A 07/11/19 11:25 Urine Bacteria 2+ (Absent) A 07/11/19 11:25 Urine Glucose Negative (Negative) 07/14/19 18:00 Fluid Source Synovial fluid 07/12/19 10:29 Fluid Volume 0.05 mL 07/12/19 10:29 Fluid Color [place] 07/12/19 10:29 Fluid Appearance Cloudy 07/12/19 10:29 Fluid WBC 3 /mcL ([id number]) 07/12/19 10:29 Fluid RBC 41904 /mcL 07/12/19 10:29 Fluid Tot Cell Count Not Reportable 07/12/19 10:29 Fluid Neutrophils TNP 07/12/19 10:29 Fluid Cell Count Rvw By 07/12/19 10:29
[2019-07-15] MEDS: Ammonium Lactate 12% 1 APPLIC TUBE TOPICAL PRN (16:22)
--- NOTE | 2019-07-15 17:23 | CONS ---
CC: Dr. Richmond CONSULTATION REPORT: DATE OF CONSULT: 07/15/19 REQUESTING PHYSICIAN: Dr. Jacques. INDICATION: Cirrhosis. NARRATIVE: Ms. Syed is a very pleasant 68-year-old female, well known to myself. I have been car ing for her for many years for her alcoholic liver disease. She has not had anything to drink in at [facility] 6 years. I last saw her about 2 months ago in the office. She does have a history of ascites a nd small varices. Her last endoscopy was approximately 11 months ago, at which time small varices wer e seen. The patient has been having issues with her hip. It got to the point where she was unable t o bear weight. She came to the hospital on 07/11/19 and was admitted for suspected avascular necrosi s, possible infection. Since that time, she has had increasing abdominal girth, likely worsening asc ites. She denies any fevers or chills. She did undergo an almost 5 L paracentesis this morning. Sh e states she is feeling much better at this time. She denies any confusion or lethargy. No black or tarry stools. From a GI standpoint, she denies any symptoms whatsoever. PAST MEDICAL HISTORY: Significant for cirrhosis secondary to alcohol abuse, currently not drinking; restless legs syndrome; history of TIA. PAST SURGICAL HISTORY: Includes hysterectomy, spinal fusion. MEDICATIONS AT HOME: 1. Xifaxan. 2. Lyrica. 3. Fentanyl patch. 4. Aldactone 200 mg a day. 5. Baclofen. 6. Lasix 120 mg a day. 7. Protonix 40. 8. Iron. 9. Remeron 30 mg. ALLERGIES: To VANCOMYCIN, LORAZEPAM, MELOXICAM, PENICILLIN, BACTRIM, ACETAMINOPHEN, ASPIRIN, ERYTHRO MYCIN, NSAIDS, and SULFA. FAMILY HISTORY: Diabetes and emphysema. SOCIAL HISTORY: She lives with her daughter. She quit smoking 4 years ago, quit drinking 6 years ag o. REVIEW OF SYSTEMS: Please see the HPI. Other than that mentioned in the HPI, 12 systems were review ed and were unremarkable. PHYSICAL EXAM: Temperature is 97.4, blood pressure is 90/50, pulse is 88, respiratory rate of 16. G eneral: Chronically ill-appearing female, appears at her baseline, slightly fatigued, alert, oriente d, pleasant, fluent. HEENT: Mucous membranes are moist without lesions, ulcers, or exudate. Neck i s supple. Trachea is midline. Stigmata of chronic liver disease, spider angiomata. Heart: Regular rate and rhythm. Lungs: Clear to auscultation. Abdomen is softly distended. Band-Aid over recent paracentesis site. No masses were felt. No rebound. No guarding. Skin is warm and dry. Neuro: N o asterixis. Psych: Normal affect. Good insight. Good judgment. LABORATORY DATA: Of note, white count is 8.1, hemoglobin is 10.8, platelets of 213. Sodium is 134, potassium is low at 2.6. Her bilirubin was 1.10. ASSESSMENT AND PLAN: Ms. Syed is a very pleasant 68-year-old female with a history of alcoholic c irrhosis, who is in remission from her alcohol abuse. She continues to have stigmata from her cirrho sis, which would include ascites. Her diuretics have been restarted and she just underwent a large v olume paracentesis. They also will send it off for cell count to make sure there is no spontaneous ba cterial peritonitis. 1. Varices. They were small a year ago. She is due in approximately a year. No active signs or sy mptoms of active bleeding. 2. Encephalopathy. None present today. Continue her Xifaxan. We will continue to follow along from a cirrhosis standpoint. [id number]/[facility] #: [id number]
[2019-07-15 18:41] LABS: BUN/Creatinine Ratio 12.5 (8-20); Calcium 7.7 mg/dL (8.6-10.3); EGFR African American 131.1 (>60); EGFR Non-African American 108.3 (>60); Potassium 3.6 mmol/L (3.5-5.0)
[2019-07-15] MEDS: Furosemide TAB* 40 MG PO SCH (19:48)
[2019-07-15] MEDS: Potassium Chlor TAB* 20 MEQ TAB.ER PO SCH (21:16)
[2019-07-15] MEDS: Mirtazapine TAB* 15 MG PO SCH (21:21)
[2019-07-15] MEDS: Enoxaparin(*) 40 MG/0.4 ML SYR SUBCUT SCH (21:23)
[2019-07-16] MEDS: ceFAZolin 2 GM PREMIX in ORs 2 GM/50 ML BAG IVPB SCH ×3 (03:36→20:07)
[2019-07-16] MEDS: oxyCODONE TAB* 5 MG TAB PO PRN ×3 (03:41→20:09)
[2019-07-16 05:53] LABS: BUN/Creatinine Ratio 12.1 (8-20); Calcium 8.2 mg/dL (8.6-10.3); EGFR African American 108.4 (>60); EGFR Non-African American 89.6 (>60); Magnesium 1.9 mg/dL (1.9-2.7); Potassium 3.7 mmol/L (3.5-5.0)
[2019-07-16] MEDS: fentaNYL Patch Check Q Shift 1 NOTE FOLLOW UP SCH ×2 (06:29→19:31)
[2019-07-16] MEDS: Baclofen TAB* 10 MG PO SCH ×2 (10:29→22:05)
[2019-07-16] MEDS: Ferrous Sulfate TAB* 325 MG PO SCH (10:30)
[2019-07-16] MEDS: Potassium Chlor TAB* 20 MEQ TAB.ER PO SCH ×3 (10:30→22:05)
[2019-07-16] MEDS: Furosemide TAB* 40 MG PO SCH (10:31)
[2019-07-16] MEDS: Pantoprazole TAB * 40 MG TAB PO SCH (10:32)
[2019-07-16] MEDS: Magnesium Chloride EC TAB* 64 MG PO SCH (10:32)
[2019-07-16] MEDS: Calcium Carbonate TAB* 1250 MG (CALCIUM 500 MG) PO SCH ×2 (10:32→22:05)
[2019-07-16] MEDS: RIFAXIMIN 200 MG PO SCH (10:34)
[2019-07-16] MEDS: Pregabalin 25 mg CAP (*) PO SCH ×3 (10:34→22:05)
[2019-07-16] MEDS: Spironolactone TAB* 25 MG PO SCH (10:35)
--- NOTE | 2019-07-16 12:39 | PN ---
Progress Note - Progress Note Date of Service: 07/16/19 SOAP: Subjective: []Patient seen at bedside. Her left hip is not currently painful at rest, reports she was just given pain medication which is working well. Her low back is the predominant area of pain. Denies fever, chills, CP, SOB, dizziness, nausea. Objective: []General: A&Ox3. NAD lying in bed LLE: Skin is CDI with no erythema. She is not tender to palpation over the left hip/greater troch today. Her thigh and calf are soft and nontender with no palpable cords. She passive knee and hip 0-40 degrees with audible cracking from the hip but no reported pain. + DF/PF ankle. DP pulse 2+ Vital Signs Temp 97.7 F 07/16/19 07:15 Pulse 95 07/16/19 07:15 Resp 16 07/16/19 10:33 BP 116/58 07/16/19 09:54 Pulse Ox 93 07/16/19 07:15 Intake & Output 07/15/19 07/16/19 07/16/19 18:59 06:59 18:59 Intake Total 900 530 240 Output Total 400 2650 Balance 500 -2120 240 Weight 155 lb 4.8 oz Intake: IV Fluids 20 NS (0.9%) 20 IVPB 100 110 ABX - CEFAZOLIN 110 K 20 MEQ 100 Oral 800 400 240 Output: Vasquez 400 2650 Other: # Bowel Movements 0 Assessment: [Left hip AVN and severe OA MSSA bacteremia Plan: No fluid was obtained from attempted hip aspiration. No increased concern for septic hip, though Ortho will continue to follow and if there is evidence for septic hip a washout will be planned. If her predominant source of pain becomes her left hip please alert ortho. Cont pain management Cont IV abx per ID/hosp Cont PT/OT
--- NOTE | 2019-07-16 13:32 | PN ---
Subjective Date of Service: 07/16/19 Interval History: No events overnight. Underwent paracentesis yesterday and is very relieved. No hip pain on movement. Sitting in chair a lot but needs significant help with transfers. Hasn't had BM in 2-3 days, even after extra lactulose. Still pending PICC. Family History: Unchanged from Admission Social History: Unchanged from Admission Past Medical History: Unchanged from Admission Objective Active Medications: Ammonium Lactate (Lac-Hydrin 12 %) 1 applic TOPICAL DAILY PRN PRN Reason: DRY SKIN Last Admin: 07/15/19 16:22 Dose: 1 applic Baclofen (Lioresal Tab*) 10 mg PO BID [facility] Last Admin: 07/16/19 10:29 Dose: 10 mg Calcium Carbonate (Calcium Carbonate Tab*) 625 mg PO BID [facility] Last Admin: 07/16/19 10:32 Dose: 625 mg Cholecalciferol (Vitamin D Tab*) 2,000 units PO EVERY OTHER DAY [facility] Last Admin: 07/15/19 08:32 Dose: 2,000 units Enoxaparin Sodium (Lovenox(*)) 40 mg SUBCUT BEDTIME [facility] Last Admin: 07/15/19 21:23 Dose: 40 mg Fentanyl (Duragesic Patch 50 Mcg/Hr*) 50 mcg TRANSDERM Q72H [facility] Last Admin: 07/15/19 00:40 Dose: 50 mcg Ferrous Sulfate (Ferrous Sulfate Tab*) 325 mg PO DAILY [facility] Last Admin: 07/16/19 10:30 Dose: 325 mg Furosemide (Lasix Tab*) 120 mg PO DAILY [facility] Last Admin: 07/16/19 10:31 Dose: 120 mg Cefazolin Sodium/Dextrose (Kefzol 2 Gm Premix In Ors(*)) 2 gm in 50 mls @ 100 mls/hr IVPB Q8H [facility] Last Admin: 07/16/19 13:27 Dose: 100 mls/hr Lactulose (Lactulose*) 30 ml PO BID [facility] Last Admin: 07/16/19 10:27 Dose: 30 ml Magnesium Chloride (Slow Mag Ec Tab*) 128 mg PO DAILY [facility] Last Admin: 07/16/19 10:32 Dose: 128 mg Magnesium Hydroxide (Milk Of Magnesia Liq*) 30 ml PO Q6H PRN PRN Reason: CONSTIPATION Mirtazapine (Remeron Tab*) 30 mg PO BEDTIME [facility] Last Admin: 07/15/19 21:21 Dose: 30 mg Oxycodone HCl (Roxycodone Tab*) 10 mg PO Q4H PRN PRN Reason: PAIN - MODERATE Last Admin: 07/16/19 10:33 Dose: 10 mg Pantoprazole Sodium (Protonix Tab*) 40 mg PO DAILY [facility] Last Admin: 07/16/19 10:32 Dose: 40 mg Pharmacy Profile Note (Fentanyl Patch Check Q Shift) 1 note FOLLOW UP 0700, 1900 [facility] Last Admin: 07/16/19 06:29 Dose: 1 note Potassium Chloride (Klor Con Er Tab*) 20 meq PO TID [facility] Last Admin: 07/16/19 13:27 Dose: 20 meq Pregabalin (Lyrica 25 Mg Cap (*)) 25 mg PO TID [facility] Last Admin: 07/16/19 13:27 Dose: Not Given Rifaximin (Xifaxan(Nf)) 200 mg PO BID [facility] Last Admin: 07/16/19 10:34 Dose: Not Given Senna (Senokot 8.6 Mg Tab*) 1 tab PO BEDTIME PRN PRN Reason: if no BM during day Spironolactone (Aldactone Tab*) 200 mg PO DAILY [facility] Last Admin: 07/16/19 10:35 Dose: 200 mg Vital Signs - 8 hr 07/16/19 07/16/19 07/16/19 05:49 07:15 08:00 Temperature 97.7 F Pulse Rate 95 Respiratory 18 20 16 Rate Blood Pressure 106/56 (mmHg) O2 Sat by Pulse 93 Oximetry 07/16/19 07/16/19 07/16/19 09:54 10:33 13:27 Temperature Pulse Rate Respiratory 16 18 Rate Blood Pressure 116/58 (mmHg) O2 Sat by Pulse Oximetry Oxygen Devices in Use Now: None Appearance: chronically ill-appearing, NAD, pleasant Ears/Nose/Mouth/Throat: Clear Oropharnyx, Mucous Membranes Moist Neck: NL Appearance and Movements; NL JVP, Trachea Midline Respiratory: Symmetrical Chest Expansion and Respiratory Effort, Clear to Auscultation Cardiovascular: NL Sounds; No Murmurs; No JVD, RRR Abdominal: - - moderately distended, without pain or guarding Extremities: - - pain on passive movement of L hip; no pain with L knee flexion ; multiple scabs over LEs Neurological: Alert and Oriented x 3 Result Diagrams: 07/14/19 04:53 07/16/19 05:14 Microbiology and Other Data: Microbiology 07/12/19 14:06 Aerobic Blood Culture - Preliminary Blood Venous Anaerobic Blood Culture - Preliminary No Growth Day 2 07/12/19 16:30 Aerobic Blood Culture - Final Blood Venous Staphylococcus Aureus Anaerobic Blood Culture - Final Staphylococcus Aureus Blood MRSA/MSSA (PCR) - Final Mrsa Negative S.aureus Positive 07/11/19 21:58 Aerobic Blood Culture - Final Blood Venous Staphylococcus Aureus Anaerobic Blood Culture - Final Staphylococcus Aureus Blood MRSA/MSSA (PCR) - Final Mrsa Negative S.aureus Positive 07/11/19 21:58 Aerobic Blood Culture - Final Blood Venous Staphylococcus Aureus Anaerobic Blood Culture - Final Staphylococcus Aureus Blood MRSA/MSSA (PCR) - Final Mrsa Negative S.aureus Positive 07/13/19 04:31 Aerobic Blood Culture - Preliminary Blood Venous No Growth Day 1 Anaerobic Blood Culture - Preliminary No Growth Day 1 07/13/19 04:21 Aerobic Blood Culture - Preliminary Blood Venous No Growth Day 1 Anaerobic Blood Culture - Preliminary No Growth Day 1 07/11/19 11:25 Urine Culture - Final Urine No Growth (<1,000 CFU/mL) Assess/Plan/Problems-Billing Assessment: 68W with 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 Possible sources is LE cellulitis, and pt has multiple LE wounds. Lumbar MRI without osteo. - Continue cefazolin IV (07/10 - 08/21); will need PICC - surveillance cultures have cleared - need EKG to monitor for heart block - appreciate ID (2) Avascular necrosis of bone of left hip Comment: Present for a few months; was following with Dr. Jackson and is taking fentanyl, oxycodone, pregabalin. Hip aspiration showing no e/o infection. - appreciate ortho input - if patient does not improve, may consider left hip wash out - appreciate ortho recs (3) Cirrhosis Comment: From alcohol use. Likely the cause of her hyponatremia and low systolic BPs. History of varices, HE, and ascites requiring LVP. s/p LVP here on 07/14. - Follows with Dr. Suarez as an outpatient - cont home furosemide/spironolactone - continue home lactulose, rifaximin - cont low sodium diet (4) Multiple wounds of skin Comment: Chronic wounds on bilateral lower extremities without active drainage. - Clean daily with soap and water and apply lotion (5) Anxiety and depression Comment: - Continue mirtazapine (6) DVT prophylaxis Comment: - Heparin SQ (7) Full code status Comment: Status and Disposition: Inpatient. Will need long-term IV abx. Anticipate need for DANNY.
[2019-07-16] MEDS: Enoxaparin(*) 40 MG/0.4 ML SYR SUBCUT SCH (22:04)
[2019-07-16] MEDS: Mirtazapine TAB* 15 MG PO SCH (22:05)
[2019-07-16] MEDS: RIFAXIMIN 550 MG PO SCH (22:05)
[2019-07-17] MEDS: oxyCODONE TAB* 5 MG TAB PO PRN ×2 (03:11→15:44)
[2019-07-17] MEDS: ceFAZolin 2 GM PREMIX in ORs 2 GM/50 ML BAG IVPB SCH ×3 (03:12→20:07)
[2019-07-17] MEDS: fentaNYL Patch Check Q Shift 1 NOTE FOLLOW UP SCH ×2 (07:21→18:26)
[2019-07-17] MEDS: Magnesium Chloride EC TAB* 64 MG PO SCH (09:46)
[2019-07-17] MEDS: Potassium Chlor TAB* 20 MEQ TAB.ER PO SCH ×3 (09:46→19:57)
[2019-07-17] MEDS: Furosemide TAB* 40 MG PO SCH (09:46)
[2019-07-17] MEDS: RIFAXIMIN 550 MG PO SCH ×2 (09:46→19:57)
[2019-07-17] MEDS: Baclofen TAB* 10 MG PO SCH ×2 (09:46→19:57)
[2019-07-17] MEDS: Spironolactone TAB* 25 MG PO SCH (09:46)
[2019-07-17] MEDS: Pregabalin 25 mg CAP (*) PO SCH ×3 (09:46→19:57)
[2019-07-17] MEDS: Cholecalciferol TAB* 1000 UNITS PO SCH (09:47)
[2019-07-17] MEDS: Pantoprazole TAB * 40 MG TAB PO SCH (09:47)
[2019-07-17] MEDS: Calcium Carbonate TAB* 1250 MG (CALCIUM 500 MG) PO SCH ×2 (09:47→19:58)
[2019-07-17] MEDS: Ferrous Sulfate TAB* 325 MG PO SCH (09:47)
--- NOTE | 2019-07-17 11:07 | PN ---
Progress Note - Progress Note Date of Service: 07/17/19 SOAP: Subjective: CC: Endocarditis HPI: Ms. Syed is a 68 yo female with PMH significant for alcoholic liver disease, TIA, DM2, left hip avascular necrosis; who presented to the hospital with worsening left hip pain. Denies left hip pain at rest, back or neck pain. Denies fever, chills, nausea, vomiting, or diarrhea. Objective: Vital Signs - 8 hr 07/17/19 07/17/19 07/17/19 03:11 05:24 07:15 Temperature 98.2 F Pulse Rate 101 Respiratory 18 17 17 Rate Blood Pressure 100/59 (mmHg) O2 Sat by Pulse 91 Oximetry Physical Exam: General: NAD, laying in bed Neurological: Alert and Oriented HEENT: Moist MM Cardiovascular: Bilateral LE edema Respiratory: Lung sounds clear bilateral Abdominal: ABD large, distended and gravid appearing, non tender MSK: Tenderness with palpation of bilateral hips. Passive ROM of left knee without pain, no effusion or pain with palpation of the knee. Negative log roll bilateral. Discomfort with passive left hip flexion. No tenderness with palpation of the neck, back or spine Skin: Bilateral LE with dry skin, dry ulcers, and dried lymph drainage Laboratory Tests 07/11/19 07/14/19 07/16/19 19:52 04:53 05:14 WBC 8.1 Hgb 10.8 L Hct 33 L Plt Count 213 Sodium 131 L Potassium 3.7 Chloride 101 Carbon Dioxide 21 L BUN 8 Creatinine 0.66 Glucose 101 H C-Reactive Protein 237.61 H Microbiology 07/13/19 04:21 Aerobic Blood Culture - Preliminary Blood Venous No Growth Day 4 Anaerobic Blood Culture - Preliminary No Growth Day 4 07/13/19 04:31 Aerobic Blood Culture - Preliminary Blood Venous No Growth Day 4 Anaerobic Blood Culture - Preliminary No Growth Day 4 07/12/19 14:06 Aerobic Blood Culture - Final Blood Venous Staphylococcus Aureus Anaerobic Blood Culture - Preliminary No Growth Day 4 07/12/19 16:30 Aerobic Blood Culture - Final Blood Venous Staphylococcus Aureus Anaerobic Blood Culture - Final Staphylococcus Aureus Blood MRSA/MSSA (PCR) - Final Mrsa Negative S.aureus Positive 07/11/19 21:58 Aerobic Blood Culture - Final Blood Venous Staphylococcus Aureus Anaerobic Blood Culture - Final Staphylococcus Aureus Blood MRSA/MSSA (PCR) - Final Mrsa Negative S.aureus Positive 07/11/19 21:58 Aerobic Blood Culture - Final Blood Venous Staphylococcus Aureus Anaerobic Blood Culture - Final Staphylococcus Aureus Blood MRSA/MSSA (PCR) - Final Mrsa Negative S.aureus Positive 07/11/19 11:25 Urine Culture - Final Urine No Growth (<1,000 CFU/mL) Assessment: 1. Staph aureus bacteremia, MSSA. Initial blood cultures with 4/4 bottles positive. No prosthetic material present. Repeat cultures from 06/13 with 3/4 bottles positive. Repeat cultures from 07/12 with no growth to date. SHARAN with MV vegetation. Reports back pain, no tenderness with palpation. MRI with no signs of spine infection 2. MV endocarditis, telida valve. TTE with vegetation on the mitral valve. Noted to have MSSA bacteremia. 3. Left hip pain. Secondary to avascular necrosis. 4. Cirrhosis. Secondary to alcohol use. Paracentesis pending. 5. DM2. 6. Vancomycin, PCN, Bactrim, and Sulfa allergies. Plan: Continue Cefazolin 2 gm IV Q8H, Day 4. Weekly labs while on IV ABX: CBC, CMP , and CRP. She will need to have a followup echo close to the end of the course of ABX. Followup with ID outpatient (Telemedicine if possible). 25 minutes floor time: > 50% spent with the patient discussing discharge plans for extended course of IV ABX, and followup.
[2019-07-17 11:26] LABS: C Reactive Protein 110.81 mg/L (<8.01)
--- NOTE | 2019-07-17 14:40 | PN ---
Progress Note - Progress Note Date of Service: 07/17/19 SOAP: Subjective: Patient seen at bedside. Her left hip is not currently painful at rest, pain is worse with weightbearing. Her low back and lateral thigh are the predominant area of pain. Denies fever, chills, CP, SOB, dizziness, nausea. Objective: Vital Signs: Temp Pulse Resp BP Pulse Ox 98.1 F 107 20 106/54 92 07/17/19 11:07 07/17/19 11:07 07/17/19 12:32 07/17/19 11:07 07/17/19 11:07 General: A&Ox3. NAD sitting in chair LLE: Skin is C/D/I with no erythema. She is not tender to palpation over the left groin. She has ttp to lateral thigh and buttock. Her thigh and calf are soft and nontender with no palpable cords. She passive hip flexion 0-60 degrees with audible cracking from the hip but no reported pain. + DF/PF ankle. DP pulse 2+ Labs: Laboratory Results - last 24 hr 07/16/19 07/16/19 05:14 05:14 Sodium 131 L Potassium 3.7 Chloride 101 Carbon Dioxide 21 L Anion Gap 9 BUN 8 Creatinine 0.66 Est GFR ( Amer) 108.4 Est GFR (Non-Af Amer) 89.6 BUN/Creatinine Ratio 12.1 Glucose 101 H Hemoglobin A1c 5.7 H Calcium 8.2 L Magnesium 1.9 C-Reactive Protein 110.81 H Microbiology 07/12/19 14:06 Blood Venous Aerobic Blood Culture - Final Staphylococcus Aureus 07/12/19 14:06 Blood Venous Anaerobic Blood Culture - Final No Growth Day 5 07/13/19 04:21 Blood Venous Aerobic Blood Culture - Preliminary No Growth Day 4 07/13/19 04:21 Blood Venous Anaerobic Blood Culture - Preliminary No Growth Day 4 07/13/19 04:31 Blood Venous Aerobic Blood Culture - Preliminary No Growth Day 4 07/13/19 04:31 Blood Venous Anaerobic Blood Culture - Preliminary No Growth Day 4 07/12/19 16:30 Blood Venous Aerobic Blood Culture - Final Staphylococcus Aureus 07/12/19 16:30 Blood Venous Anaerobic Blood Culture - Final Staphylococcus Aureus 07/12/19 16:30 Blood Venous Blood MRSA/MSSA (PCR) - Final Mrsa Negative S.aureus Positive 07/11/19 21:58 Blood Venous Aerobic Blood Culture - Final Staphylococcus Aureus 07/11/19 21:58 Blood Venous Anaerobic Blood Culture - Final Staphylococcus Aureus 07/11/19 21:58 Blood Venous Blood MRSA/MSSA (PCR) - Final Mrsa Negative S.aureus Positive 07/11/19 21:58 Blood Venous Aerobic Blood Culture - Final Staphylococcus Aureus 07/11/19 21:58 Blood Venous Anaerobic Blood Culture - Final Staphylococcus Aureus 07/11/19 21:58 Blood Venous Blood MRSA/MSSA (PCR) - Final Mrsa Negative S.aureus Positive 07/11/19 11:25 Urine Urine Culture - Final No Growth (<1,000 CFU/mL) Assessment: Left hip AVN and severe OA MSSA bacteremia with endocarditis Plan: Concern for left hip infection very low, ROM is tolerable and she has no tenderness at the groin, no pain previously with log roll. Cont pain management Cont IV abx per ID/hosp Cont PT/OT Ortho to sign off but can be reached if needed
--- NOTE | 2019-07-17 17:25 | PN ---
Subjective Date of Service: 07/17/19 Interval History: No acute events overnight. Still needs PICC prior to discharge. Vasquez out today. Patient without complaints. Looking forward to DC. Denies hip pain at rest. Abd feels better after para. Had BM yesterday. Objective Active Medications: Ammonium Lactate (Lac-Hydrin 12 %) 1 applic TOPICAL DAILY PRN PRN Reason: DRY SKIN Last Admin: 07/15/19 16:22 Dose: 1 applic Baclofen (Lioresal Tab*) 10 mg PO BID [facility] Last Admin: 07/17/19 09:46 Dose: 10 mg Calcium Carbonate (Calcium Carbonate Tab*) 625 mg PO BID [facility] Last Admin: 07/17/19 09:47 Dose: 625 mg Cholecalciferol (Vitamin D Tab*) 2,000 units PO EVERY OTHER DAY [facility] Last Admin: 07/17/19 09:47 Dose: 2,000 units Enoxaparin Sodium (Lovenox(*)) 40 mg SUBCUT BEDTIME [facility] Last Admin: 07/16/19 22:04 Dose: 40 mg Fentanyl (Duragesic Patch 50 Mcg/Hr*) 50 mcg TRANSDERM Q72H [facility] Last Admin: 07/15/19 00:40 Dose: 50 mcg Ferrous Sulfate (Ferrous Sulfate Tab*) 325 mg PO DAILY [facility] Last Admin: 07/17/19 09:47 Dose: 325 mg Furosemide (Lasix Tab*) 120 mg PO DAILY [facility] Last Admin: 07/17/19 09:46 Dose: 120 mg Cefazolin Sodium/Dextrose (Kefzol 2 Gm Premix In Ors(*)) 2 gm in 50 mls @ 100 mls/hr IVPB Q8H [facility] Last Admin: 07/17/19 12:22 Dose: 100 mls/hr Lactulose (Lactulose*) 30 ml PO BID [facility] Last Admin: 07/17/19 09:46 Dose: 30 ml Magnesium Chloride (Slow Mag Ec Tab*) 128 mg PO DAILY [facility] Last Admin: 07/17/19 09:46 Dose: 128 mg Magnesium Hydroxide (Milk Of Magnesia Liq*) 30 ml PO Q6H PRN PRN Reason: CONSTIPATION Mirtazapine (Remeron Tab*) 30 mg PO BEDTIME [facility] Last Admin: 07/16/19 22:05 Dose: 30 mg Oxycodone HCl (Roxycodone Tab*) 10 mg PO Q4H PRN PRN Reason: PAIN - MODERATE Last Admin: 07/17/19 15:44 Dose: 10 mg Pantoprazole Sodium (Protonix Tab*) 40 mg PO DAILY [facility] Last Admin: 07/17/19 09:47 Dose: 40 mg Pharmacy Profile Note (Fentanyl Patch Check Q Shift) 1 note FOLLOW UP 0700, 1900 [facility] Last Admin: 07/17/19 07:21 Dose: 1 note Potassium Chloride (Klor Con Er Tab*) 20 meq PO TID [facility] Last Admin: 07/17/19 12:24 Dose: 20 meq Pregabalin (Lyrica 25 Mg Cap (*)) 25 mg PO TID [facility] Last Admin: 07/17/19 12:23 Dose: Not Given Rifaximin (Xifaxan*) 550 mg PO BID [facility] Last Admin: 07/17/19 09:46 Dose: 550 mg Senna (Senokot 8.6 Mg Tab*) 1 tab PO BEDTIME PRN PRN Reason: if no BM during day Spironolactone (Aldactone Tab*) 200 mg PO DAILY [facility] Last Admin: 07/17/19 09:46 Dose: 200 mg Vital Signs - 8 hr 07/17/19 07/17/19 07/17/19 09:46 11:07 12:32 Temperature 98.1 F Pulse Rate 107 Respiratory 18 16 20 Rate Blood Pressure 106/54 (mmHg) O2 Sat by Pulse 92 Oximetry 07/17/19 07/17/19 15:15 15:44 Temperature 98.0 F Pulse Rate 101 Respiratory 16 18 Rate Blood Pressure 103/53 (mmHg) O2 Sat by Pulse 92 Oximetry Oxygen Devices in Use Now: Nasal Cannula Appearance: chronically ill-appearing woman in NAD, sitting in chair, alert and pleasant Ears/Nose/Mouth/Throat: Clear Oropharnyx, Mucous Membranes Moist Neck: NL Appearance and Movements; NL JVP, Trachea Midline Respiratory: Symmetrical Chest Expansion and Respiratory Effort, Clear to Auscultation Cardiovascular: NL Sounds; No Murmurs; No JVD, RRR Abdominal: - - mildly distended, soft and nontender Skin: - - scattered scabs and superficial ulcers over distal LEs; no purulence Neurological: Alert and Oriented x 3 Result Diagrams: 07/14/19 04:53 07/16/19 05:14 Microbiology and Other Data: Microbiology 07/12/19 14:06 Aerobic Blood Culture - Preliminary Blood Venous Anaerobic Blood Culture - Preliminary No Growth Day 2 07/12/19 16:30 Aerobic Blood Culture - Final Blood Venous Staphylococcus Aureus Anaerobic Blood Culture - Final Staphylococcus Aureus Blood MRSA/MSSA (PCR) - Final Mrsa Negative S.aureus Positive 07/11/19 21:58 Aerobic Blood Culture - Final Blood Venous Staphylococcus Aureus Anaerobic Blood Culture - Final Staphylococcus Aureus Blood MRSA/MSSA (PCR) - Final Mrsa Negative S.aureus Positive 07/11/19 21:58 Aerobic Blood Culture - Final Blood Venous Staphylococcus Aureus Anaerobic Blood Culture - Final Staphylococcus Aureus Blood MRSA/MSSA (PCR) - Final Mrsa Negative S.aureus Positive 07/13/19 04:31 Aerobic Blood Culture - Preliminary Blood Venous No Growth Day 1 Anaerobic Blood Culture - Preliminary No Growth Day 1 07/13/19 04:21 Aerobic Blood Culture - Preliminary Blood Venous No Growth Day 1 Anaerobic Blood Culture - Preliminary No Growth Day 1 07/11/19 11:25 Urine Culture - Final Urine No Growth (<1,000 CFU/mL) Assess/Plan/Problems-Billing Assessment: 68W with 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 Possible sources is LE cellulitis, and pt has multiple LE wounds. Lumbar MRI without osteo. - Continue cefazolin IV (07/10 - 08/21); will need PICC - surveillance cultures have cleared - need EKG to monitor for heart block - appreciate ID (2) Avascular necrosis of bone of left hip Comment: Present for a few months; was following with Dr. Jackson and is taking fentanyl, oxycodone, pregabalin. Hip aspiration showing no e/o infection. - appreciate ortho input - if patient does not improve, may consider left hip wash out - appreciate ortho recs (3) Cirrhosis Comment: From alcohol use. Likely the cause of her hyponatremia and low systolic BPs. History of varices, HE, and ascites requiring LVP. s/p LVP here on 07/14. - Follows with Dr. Suarez as an outpatient - cont home furosemide/spironolactone - continue home lactulose, rifaximin - cont low sodium diet (4) Multiple wounds of skin Comment: Chronic wounds on bilateral lower extremities without active drainage. - Clean daily with soap and water and apply lotion (5) Anxiety and depression Comment: - Continue mirtazapine (6) DVT prophylaxis Comment: - Heparin SQ (7) Full code status Comment: Status and Disposition: Inpatient. Will need long-term IV abx. Anticipate need for DANNY.
[2019-07-17] MEDS: Mirtazapine TAB* 15 MG PO SCH (19:56)
[2019-07-17] MEDS: Enoxaparin(*) 40 MG/0.4 ML SYR SUBCUT SCH (20:01)
[2019-07-17] MEDS: fentaNYL PATCH 50 MCG/HR TRANSDERM SCH ×2 (21:29→21:51)
[2019-07-18] MEDS: ceFAZolin 2 GM PREMIX in ORs 2 GM/50 ML BAG IVPB SCH ×3 (03:25→17:37)
[2019-07-18] MEDS: oxyCODONE TAB* 5 MG TAB PO PRN ×2 (03:25→16:37)
[2019-07-18] MEDS: fentaNYL Patch Check Q Shift 1 NOTE FOLLOW UP SCH ×2 (07:06→18:42)
[2019-07-18 07:15] LABS: BUN/Creatinine Ratio 22.5 (8-20); Calcium 8.3 mg/dL (8.6-10.3); EGFR African American 99.7 (>60); EGFR Non-African American 82.4 (>60); Magnesium 1.9 mg/dL (1.9-2.7); Potassium 3.7 mmol/L (3.5-5.0)
[2019-07-18] MEDS: Magnesium Chloride EC TAB* 64 MG PO SCH (09:13)
[2019-07-18] MEDS: Spironolactone TAB* 25 MG PO SCH (09:13)
[2019-07-18] MEDS: Pregabalin 25 mg CAP (*) PO SCH ×4 (09:13→20:52)
[2019-07-18] MEDS: RIFAXIMIN 550 MG PO SCH ×2 (09:13→20:52)
[2019-07-18] MEDS: Calcium Carbonate TAB* 1250 MG (CALCIUM 500 MG) PO SCH ×2 (09:13→20:53)
[2019-07-18] MEDS: Potassium Chlor TAB* 20 MEQ TAB.ER PO SCH ×3 (09:14→20:53)
[2019-07-18] MEDS: Pantoprazole TAB * 40 MG TAB PO SCH (09:14)
[2019-07-18] MEDS: Furosemide TAB* 40 MG PO SCH (09:14)
[2019-07-18] MEDS: Baclofen TAB* 10 MG PO SCH ×2 (09:14→20:51)
[2019-07-18] MEDS: Ferrous Sulfate TAB* 325 MG PO SCH (09:14)
--- NOTE | 2019-07-18 17:44 | PN ---
Subjective Date of Service: 07/18/19 Interval History: No acute events overnight. PICC placed and accepted to [facility]. Denies new complaints. Had a BM today. Objective Active Medications: Ammonium Lactate (Lac-Hydrin 12 %) 1 applic TOPICAL DAILY PRN PRN Reason: DRY SKIN Last Admin: 07/15/19 16:22 Dose: 1 applic Baclofen (Lioresal Tab*) 10 mg PO BID [facility] Last Admin: 07/18/19 09:14 Dose: 10 mg Calcium Carbonate (Calcium Carbonate Tab*) 625 mg PO BID [facility] Last Admin: 07/18/19 09:13 Dose: 625 mg Cholecalciferol (Vitamin D Tab*) 2,000 units PO EVERY OTHER DAY [facility] Last Admin: 07/17/19 09:47 Dose: 2,000 units Enoxaparin Sodium (Lovenox(*)) 40 mg SUBCUT BEDTIME [facility] Last Admin: 07/17/19 20:01 Dose: 40 mg Fentanyl (Duragesic Patch 50 Mcg/Hr*) 50 mcg TRANSDERM Q72H [facility] Last Admin: 07/17/19 21:51 Dose: Not Given Ferrous Sulfate (Ferrous Sulfate Tab*) 325 mg PO DAILY [facility] Last Admin: 07/18/19 09:14 Dose: 325 mg Furosemide (Lasix Tab*) 120 mg PO DAILY [facility] Last Admin: 07/18/19 09:14 Dose: 120 mg Heparin Sodium (Porcine) (Heparin Flush Picc/Ml/Cvc(*)) 1 ml FLUSH 0600,1800 [facility]; Protocol Cefazolin Sodium/Dextrose (Kefzol 2 Gm Premix In Ors(*)) 2 gm in 50 mls @ 100 mls/hr IVPB Q8H [facility] Last Admin: 07/18/19 17:37 Dose: 100 mls/hr Lactulose (Lactulose*) 30 ml PO BID [facility] Last Admin: 07/18/19 09:13 Dose: 30 ml Magnesium Chloride (Slow Mag Ec Tab*) 128 mg PO DAILY [facility] Last Admin: 07/18/19 09:13 Dose: 128 mg Magnesium Hydroxide (Milk Of Magnesia Liq*) 30 ml PO Q6H PRN PRN Reason: CONSTIPATION Mirtazapine (Remeron Tab*) 30 mg PO BEDTIME [facility] Last Admin: 07/17/19 19:56 Dose: 30 mg Oxycodone HCl (Roxycodone Tab*) 10 mg PO Q4H PRN PRN Reason: PAIN - MODERATE Last Admin: 07/18/19 16:37 Dose: 10 mg Pantoprazole Sodium (Protonix Tab*) 40 mg PO DAILY [facility] Last Admin: 07/18/19 09:14 Dose: 40 mg Pharmacy Profile Note (Fentanyl Patch Check Q Shift) 1 note FOLLOW UP 0700, 1900 [facility] Last Admin: 07/18/19 07:06 Dose: 1 note Potassium Chloride (Klor Con Er Tab*) 20 meq PO TID [facility] Last Admin: 07/18/19 14:05 Dose: 20 meq Pregabalin (Lyrica 25 Mg Cap (*)) 25 mg PO TID [facility] Last Admin: 07/18/19 14:06 Dose: Not Given Rifaximin (Xifaxan*) 550 mg PO BID [facility] Last Admin: 07/18/19 09:13 Dose: 550 mg Senna (Senokot 8.6 Mg Tab*) 1 tab PO BEDTIME PRN PRN Reason: if no BM during day Spironolactone (Aldactone Tab*) 200 mg PO DAILY [facility] Last Admin: 07/18/19 09:13 Dose: 200 mg Vital Signs - 8 hr 07/18/19 07/18/19 07/18/19 12:02 12:37 14:06 Temperature 98.0 F Pulse Rate 103 Respiratory 18 18 20 Rate Blood Pressure 122/78 (mmHg) O2 Sat by Pulse 90 Oximetry 07/18/19 07/18/19 15:44 16:37 Temperature 97.5 F Pulse Rate 108 Respiratory 18 20 Rate Blood Pressure 110/59 (mmHg) O2 Sat by Pulse 96 Oximetry Oxygen Devices in Use Now: None Appearance: chronically ill appearing, NAD, alert and pleasant Eyes: No Scleral Icterus Ears/Nose/Mouth/Throat: Clear Oropharnyx, Mucous Membranes Moist Neck: NL Appearance and Movements; NL JVP, Trachea Midline Respiratory: Symmetrical Chest Expansion and Respiratory Effort, Clear to Auscultation Cardiovascular: NL Sounds; No Murmurs; No JVD, RRR Abdominal: - - distention unchanged, nontender and soft Extremities: No Edema Skin: - - scattered scabs and superficial ulcers of distal lower extremities Result Diagrams: 07/14/19 04:53 07/18/19 06:39 Microbiology and Other Data: Microbiology 07/12/19 14:06 Aerobic Blood Culture - Preliminary Blood Venous Anaerobic Blood Culture - Preliminary No Growth Day 2 07/12/19 16:30 Aerobic Blood Culture - Final Blood Venous Staphylococcus Aureus Anaerobic Blood Culture - Final Staphylococcus Aureus Blood MRSA/MSSA (PCR) - Final Mrsa Negative S.aureus Positive 07/11/19 21:58 Aerobic Blood Culture - Final Blood Venous Staphylococcus Aureus Anaerobic Blood Culture - Final Staphylococcus Aureus Blood MRSA/MSSA (PCR) - Final Mrsa Negative S.aureus Positive 07/11/19 21:58 Aerobic Blood Culture - Final Blood Venous Staphylococcus Aureus Anaerobic Blood Culture - Final Staphylococcus Aureus Blood MRSA/MSSA (PCR) - Final Mrsa Negative S.aureus Positive 07/13/19 04:31 Aerobic Blood Culture - Preliminary Blood Venous No Growth Day 1 Anaerobic Blood Culture - Preliminary No Growth Day 1 07/13/19 04:21 Aerobic Blood Culture - Preliminary Blood Venous No Growth Day 1 Anaerobic Blood Culture - Preliminary No Growth Day 1 07/11/19 11:25 Urine Culture - Final Urine No Growth (<1,000 CFU/mL) Assess/Plan/Problems-Billing Assessment: 68W with 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 Possible sources is LE cellulitis, and pt has multiple LE wounds. Lumbar MRI without osteo. - Continue cefazolin IV (07/10 - 08/21); will need PICC - surveillance cultures have cleared - need EKG to monitor for heart block - appreciate ID (2) Avascular necrosis of bone of left hip Comment: Present for a few months; was following with Dr. Jackson and is taking fentanyl, oxycodone, pregabalin. Hip aspiration showing no e/o infection. - appreciate ortho input - if patient does not improve, may consider left hip wash out - appreciate ortho recs (3) Cirrhosis Comment: From alcohol use. Likely the cause of her hyponatremia and low systolic BPs. History of varices, HE, and ascites requiring LVP. s/p LVP here on 07/14. - Follows with Dr. Suarez as an outpatient - cont home furosemide/spironolactone - continue home lactulose, rifaximin - cont low sodium diet (4) Multiple wounds of skin Comment: Chronic wounds on bilateral lower extremities without active drainage. - Clean daily with soap and water and apply lotion (5) Anxiety and depression Comment: - Continue mirtazapine (6) DVT prophylaxis Comment: - Heparin SQ (7) Full code status Comment: Status and Disposition: Inpatient. Will need long-term IV abx. Anticipate need for DANNY.
[2019-07-18] MEDS: Mirtazapine TAB* 15 MG PO SCH (20:51)
[2019-07-18] MEDS: Enoxaparin(*) 40 MG/0.4 ML SYR SUBCUT SCH (20:54)
[2019-07-19] MEDS ORDERED: oxyCODONE TAB* 5 MG TAB PO PRN (00:54)
[2019-07-19] MEDS: ceFAZolin 2 GM PREMIX in ORs 2 GM/50 ML BAG IVPB SCH ×2 (01:09→10:42)
[2019-07-19] MEDS: fentaNYL Patch Check Q Shift 1 NOTE FOLLOW UP SCH (07:30)
[2019-07-19] MEDS: Spironolactone TAB* 25 MG PO SCH (08:22)
[2019-07-19] MEDS: Potassium Chlor TAB* 20 MEQ TAB.ER PO SCH (08:23)
[2019-07-19] MEDS: Cholecalciferol TAB* 1000 UNITS PO SCH (08:23)
[2019-07-19] MEDS: RIFAXIMIN 550 MG PO SCH (08:23)
[2019-07-19] MEDS: Magnesium Chloride EC TAB* 64 MG PO SCH (08:23)
[2019-07-19] MEDS: Ferrous Sulfate TAB* 325 MG PO SCH (08:23)
[2019-07-19] MEDS: Calcium Carbonate TAB* 1250 MG (CALCIUM 500 MG) PO SCH (08:24)
[2019-07-19] MEDS: Baclofen TAB* 10 MG PO SCH (08:24)
[2019-07-19] MEDS: Pantoprazole TAB * 40 MG TAB PO SCH (08:24)
[2019-07-19] MEDS: Furosemide TAB* 40 MG PO SCH (08:24)
[2019-07-19] MEDS: Pregabalin 25 mg CAP (*) PO SCH (08:25)
[2019-07-19 11:06] VITALS: BP 127/58
--- NOTE | 2019-07-19 13:35 | DS ---
CC: Dr. Estrada [place]; Dr. Justin Suarez * DATE OF ADMISSION: 07/11/2019. DATE OF DISCHARGE: 07/19/2019. PRIMARY CARE PHYSICIAN: Dr. Estrada [place]. DELINQUENT ACCOUNT CLERK: Dr. Suarez of GI. PRIMARY DIAGNOSES: 1. Endocarditis and bacteremia causing sepsis. 2. Decompensated cirrhosis. 3. Chronic lower extremity wounds, new. SECONDARY DIAGNOSES: 1. Diabetes. 2. Chronic back pain. 3. Left hip AVN. CONSULTS: Dr. Jose Hernandez of Infectious Disease; Dr. Amparo Rothman of Orthopedic Surgery. PROCEDURES: 1. Hip aspiration on July 11. 2. Paracentesis on July 14. DISCHARGE MEDICATIONS: 1. Cefazolin 2 gm every 8 hours until August 21. 2. Furosemide 120 mg daily. 3. Spironolactone 200 mg daily. 4. Baclofen 10 mg twice a day. 5. Rifaximin 200 mg twice a day. 6. Lactulose to titrate to two to three bowel movements a day. 7. Pregabalin 25 mg t.i.d. 8. Fentanyl patch 25 mcg an hour. 9. Oxycodone 10 mg every 4 to 6 hours as needed for pain. 10. Pantoprazole 20 mg daily. 11. Vitamin D 2,000 units every other day. 12. Mirtazapine 30 mg at bedtime. 13. Iron, zinc, vitamin E supplements. 14. Alendronate 70 mg weekly. 15. Potassium Chloride 20 mEq t.i.d. HISTORY OF PRESENT ILLNESS: Ms. Syed is a 68-year-old woman with alcoholic liver cirrhosis complicated by variceal bleeding, hepatic encephalopathy, and ascites, all now under control, also with diabetes, chronic back pain on opioids , and history of TIA who is presenting with severe left hip pain. Of note, she quit drinking alcohol six years ago. She was diagnosed with avascular necrosis by Dr. Vincent over the last few weeks as she has had issues with her left hip for approximately four months. Her pain of her left hip is currently being treated with Fentanyl and Oxycodone; however, over the last five days, the pain in the left hip became unbearable and she is unable to bear weight on the left hip. She also noted increased urination and urinary frequency, so she stopped her diuretics. She came to the hospital for further management. HOSPITAL COURSE: In the emergency room, the patient was noted to be volume down with elevated CRP. There was concern for infection of the left hip and also possibly a UTI given the patient's symptoms. However, her urinalysis was not concerning for infection and her urine culture was negative. Soon after admission, her blood cultures grew 4/4 bottles with MSSA and ID was consulted, as well as Orthopedic Surgery for possible hip washout. The patient also underwent a transthoracic echocardiogram which showed a mitral valve vegetation measuring 0.9 cm x 1.5 cm. Orthopedic Surgery performed a hip aspiration on July 11 and although they say no fluid could be aspirated from the left hip aspiration, it does appear fluid was sent which had a very low white blood cell count, so it was deemed very unlikely that this patient's left hip pain is from a septic joint. The patient had an MRI of her lumbar spine given concern for osteomyelitis there. However, this was negative for infection. She also had a large volume paracentesis and fluid was lost and not sent for studies. Of note , she was without nausea, vomiting, or abdominal symptoms this entire time. It was thought her increase in ascites was due to significant IV fluid resuscitation when the patient was septic and she was able to be restarted on her home ascites regimen with good effect. Infectious Disease specialist recommended a six week course of Cefazolin with an echo to be performed at the end of her course of antibiotics. It was thought the patient's staph infection could possibly have been from open wounds of her lower extremities, although these did not appear infected throughout admission. Her surveillance cultures cleared. An EKG was performed and not concerning for abscess or heart block. The patient was seen and evaluated by Physical Therapy who recommended discharged to a short-term rehab. The patient was amenable to this plan. She will be discharged to rehab to continue on IV antibiotics and her prior home medications. PERTINENT DIAGNOSTIC STUDIES: 1. CBC with anemia with hemoglobin 11 which is near the patient's baseline with platelets 213. 2. BMP notable for stable hyponatremia to 131. Again, this is the patient's baseline. 3. CRP initially 237, repeat 110. 4. Several blood cultures with staphylococcus aureus sensitive to Cephazolin, MRSA negative. 5. Transthoracic echocardiogram with left ventricle systolic function normal with EF 55 to 60 percent. No regional wall motion abnormalities. Mitral valve leaflets mildly thickened with a vegetation associated with the posterior leaflet of the mitral valve and measures 0.9 x 1.5 cm with the mobile linear lesions extending from the main lesion. There is a mild regurgitation. Aortic valve calcified with valve trileaflet with focal thickening on the noncoronary cusp and left coronary cusp that may be calcification but cannot exclude vegetation. 6. MRI of the lumbar spine without contrast: Negative for epidural abscess. Degenerative findings including mild central canal stenosis at L3 to L4. 7. Abdominal ultrasound prior to paracentesis with a moderate degree of ascites present. DISCHARGE PLAN: 1. For debility and weakness, the patient is being discharged to [facility] for ongoing rehabilitation. 2. For endocarditis, she will be continued on her IV Cefazolin through a PICC to complete a six week course. She will need weekly CBC's, CMP's, and CRP's while on this medication. Will need a repeat echo at the end of her six week course. 3. For cirrhosis, the patient will be continued on her home diuretic regimen as well as preventative medicines for her hepatic encephalopathy, including Rifaximin and Lactulose. She should follow a low sodium diet and monitor her weights daily. DIET: Low sodium and low carbohydrate for glucose control. ACTIVITY: As tolerated. DISPOSITION: [facility]. CONDITION ON DISCHARGE: Improved. TIME SPENT: Approximately 60 minutes were spent on the discharge of this patient, more than half of which was spent on care coordination at bedside for interview and exam. [id number]/[facility] #: [id number] SHILA
== END 2019-07-19 13:15 | DRG 872 ==
LOC: ED 19:07 → MED 21:37
PROVIDERS: ADMIT Internal Medicine; ATTEND Internal Medicine
PROC: 0SJB3ZZ Inspection of Left Hip Joint, Percutaneous Approach (ICD-10-PCS; 2019-07-12)
PROC: 0W9G3ZZ Drainage of Peritoneal Cavity, Percutaneous Approach (ICD-10-PCS; 2019-07-15)
PROC: 02HV33Z Insertion of Infusion Device into Superior Vena Cava, Percutaneous Approach (ICD-10-PCS; principal; 2019-07-18)
DX: A41.01 Sepsis due to Methicillin susceptible Staphylococcus aureus (principal); I85.10 Secondary esophageal varices without bleeding; E87.1 Hypo-osmolality and hyponatremia; M87.052 Idiopathic aseptic necrosis of left femur; K70.31 Alcoholic cirrhosis of liver with ascites; E11.9 Type 2 diabetes mellitus without complications; M54.9 Dorsalgia, unspecified; G25.81 Restless legs syndrome; Z66 Do not resuscitate; D64.9 Anemia, unspecified; M16.12 Unilateral primary osteoarthritis, left hip; I05.9 Rheumatic mitral valve disease, unspecified; F41.9 Anxiety disorder, unspecified; F32.9 Major depressive disorder, single episode, unspecified; E87.6 Hypokalemia; K21.9 Gastro-esophageal reflux disease without esophagitis; G89.4 Chronic pain syndrome; Z86.73 Personal history of transient ischemic attack (TIA), and cerebral infarction without residual deficits; Z98.1 Arthrodesis status; Z28.21 Immunization not carried out because of patient refusal; Z90.710 Acquired absence of both cervix and uterus; Z79.899 Other long term (current) drug therapy; Z88.5 Allergy status to narcotic agent; Z88.1 Allergy status to other antibiotic agents; Z88.8 Allergy status to other drugs, medicaments and biological substances; Z88.0 Allergy status to penicillin; Z88.6 Allergy status to analgesic agent; Z88.2 Allergy status to sulfonamides; Z87.891 Personal history of nicotine dependence
CPT/HCPCS: 20610; 36415; 49083; 72148; 76705; 77002; 80048; 80053; 81003; 81015; 83036; 83735; 85025; 86140; 87040; 87077; 87086; 87150; 87186; 87205; 89051; 93005; 93306; 96374; 99284; A9270-GY; J0690; J0696; J1644; J1650; J3010; J3475; J3480

== ENCOUNTER 2019-08-04 19:09 | Emergency (ER) | payer MEDICARE, OTHER ==
--- OUTSIDE RECORDS SUMMARY | 2019-08-04 19:26 | XMS REPORT | Continuity of Care Document ---
:1950 External Reference #:[id number] Author Name Franny Alvarado NP (transmitted by agent of provider Dory Bryan) Address [address] [place] [id number] Care Team Providers Name Role Phone Estrada Richmond M.D. 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 ts M.D. Paroxetine HCL 1 by mouth qd 90tabs Estrada Richmond, 08/08/2017 30mg M.D. Tablets Neurontin 2 by mouth 3x per 120caps R25.2 Estrada Richmond, 11/10/2015 300mg day M.D. Capsules Ferrous Sulfate 1 by mouth every 90tabs Estrada Richmond, 08/18/2014 day M.D. 325(65Fe) mg Tablets Baclofen 1 tab bid Hernandez, 10mg Tablets MAYNOR Bowman Vitamin E 1 po qd Unknown 200Unit Capsules Alendronate Sodium take 1 tablet by Unknown mouth every week 70mg Tablets Vitamin D3 1 by mouth every Unknown 2000Unit day Tablets Atorvastatin Calcium take 1 tablet at Unknown bedtime 20mg Tablets Fentanyl apply 1 patch Unknown 12mcg/HR every 3 days Patches 72HR maximum daily dose = 1 patch every 3 days Calcium 600 1 by mouth every Unknown 600mg day Tablets Zinc Gluconate 1 by mouth bid Unknown 50mg every day Tablets Klor-Con M20 1 by mouth every Unknown 20Meq day Tablets ER Slow-Mag 1 by mouth every Unknown 71.5-119mg day Tablets Pantoprazole Sodium 1 tab po daily Estrada Richmond, M.D. 20mg Tablets Oxycodone HCL 1 tab po tid prn Estrada Richmond, 10mg for back pain M.D. Tablets Spironolactone 3 by mouth every Estrada Richmond, 100mg day M.D. Tablets Mirtazapine take 1 tab at Estrada Richmond, 30mg bedtime M.D. Tablets Lactulose 30ml day 3 no bm Estrada Richmond, 10GM/15ML may repeat 4 and M.D. Solution 5. Gabapentin 1 tabs po four Estrada Richmond, 600mg times daily M.D. Capsules Furosemide 1 1/2 by mouth Estrada Richmond, 80mg every day M.D. Tablets Paroxetine HCL 1 by mouth every Estrada Richmond, 20mg day M.D. Tablets Medications Administered in Office Medication SIG Qnty Indications Ordering Provider Date Records Fee Lenny Persaud MD 01/11/2019 Injection Immunizations Description No Information Available Vital Signs Date Vital Result Comment 03/14/2019 10:25am Height 58 inches 4'10" Weight 174.12 lb Heart Rate 102 /min BP Systolic 118 mmHg BP Diastolic 62 mmHg O2 % BldC Oximetry 90 % BMI (Body Mass Index) 36.4 kg/m2 01/03/2019 10:04am Height 58 inches 4'10" Weight 175.00 lb Heart Rate 100 /min BP Systolic Sitting 108 mmHg Lue regular cuff BP Diastolic Sitting 72 mmHg Lue regular cuff Respiratory Rate 12 /min O2 % BldC Oximetry 91 % BMI (Body Mass Index) 36.6 kg/m2 Results Description No Information Available Procedures Date Code Description Status 07/12/2019 17038 ECHO Transthorasic Realtime 2D W Doppler & Color Flow Hosp Completed Medical Devices Description No Information Available Encounters Type Date Location Provider Dx Diagnosis Office Visit 07/17/2019 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 Franny Peng M25.552 Pain in Toney Alvarado NP left hip Diseases R78.81 Bacteremia B95.7 Oth staphylococcus as the cause of diseases classd elswhr M54.2 Cervicalgia K70.30 Alcoholic cirrhosis of liver without ascites Office Visit 03/14/2019 [facility] G47.33 Obstructive sleep 10:30a [facility] MARGUERITE Chong apnea (adult) Dispatch Associate (pediatric) R09.02 Hypoxemia Office Visit 02/25/2019 [facility] Maurilio G44.201 Tension-type 9:07a Assoc,nithya Leong M.D. 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 unspecified Hospitalists without coma E11.9 Type 2 diabetes mellitus without complications G25.81 Restless legs syndrome G89.29 Other chronic pain Assessments Date Code Description Provider 07/17/2019 I33.0 Acute and subacute infective rFanny Alvarado NP endocarditis 07/17/2019 M87.052 Idiopathic aseptic necrosis of left Franny Alvarado NP femur 07/17/2019 K70.30 Alcoholic cirrhosis of liver without Franny Alvarado NP ascites 07/17/2019 E11.9 Type 2 diabetes mellitus without Franny Alvarado, EMT DRIVER complications 07/15/2019 I33.0 Acute and subacute infective Franny Singhdarenmargaretaminah Alvarado, EMT DRIVER endocarditis 07/15/2019 M87.052 Idiopathic aseptic necrosis of left Franny Alvarado, EMT DRIVER femur 07/15/2019 K70.30 Alcoholic cirrhosis of liver without Franny Ginette Alvarado, EMT DRIVER ascites 07/15/2019 E11.9 Type 2 diabetes mellitus without Frannybasilia Alvarado, EMT DRIVER complications 07/12/2019 M25.552 Pain in left hip Frannybasilia Alvarado, EMT DRIVER 07/12/2019 R78.81 Bacteremia Franny Ginette Alvarado, EMT DRIVER 07/12/2019 B95.7 Other staphylococcus as the cause of Franny Singhlambert Alvarado NP diseases classified elsewhere 07/12/2019 M54.2 Cervicalgia Franny Ginette Alvarado, MARGUERITE 07/12/2019 K70.30 Alcoholic cirrhosis of liver without Frannybasilia Alvarado, MARGUERITE ascites 03/14/2019 G47.33 Obstructive sleep apnea (adult) Peggy Chong NP (pediatric) 03/14/2019 R09.02 Hypoxemia Peggy Chong NP 02/25/2019 G44.201 Tension-type headache, unspecified, Maurilio Leong M.D. intractable 02/25/2019 G89.4 Chronic pain syndrome Maurilio Leong M.D. 02/25/2019 K70.30 Alcoholic cirrhosis of liver without Maurilio Leong M.D. ascites 02/25/2019 E11.9 Type 2 diabetes mellitus without Maurilio Leong M.D. complications 02/25/2019 G25.81 Restless legs syndrome Maurilio Leong M.D. 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 coma 02/18/2019 E11.9 Type 2 diabetes mellitus without Galina Chaudhry M.D. complications 02/18/2019 G25.81 Restless legs syndrome Galina Chaudhry M.D. 02/18/2019 G89.29 Other chronic pain Galina Chaudhry M.D. Plan of Treatment 03/14/2019 - Peggy Chong NPG47.33 Obstructive sleep apnea (adult) ( pediatric)Follow up:PRNRecommendations:If you decide you would like to resume CPAP/supplemental oxygen usage, please call our office for anappointment. If you return your machine you will need to have an in-lab sleep study to resume usage.R09.02 Hypoxemia Functional Status Description No Information Available Mental Status Description No Information Available Referrals Description No Information Available
--- OUTSIDE RECORDS SUMMARY | 2019-08-04 19:26 | XMS REPORT | Continuity of Care Document ---
:1950 External Reference #:[id number] Author Name Kendrick Sibley MD (transmitted by agent of provider Cortney Mckinney) Address [address] [place] [address] Care Team Providers Name Role Phone Justin Suarez MD - Care Team Information Special Events Planner [phone] [facility] - Pain Care Team Information Special Events Planner [phone] [facility] Wound Care Clinic Care Team Information Special Events Planner [phone] Marcelino Murillo - Neurology Care Team Information Special Events Planner [phone] Problems Active Problems Provider Date Cirrhosis of [...] 1 po qd Veronica Finnegan. 08/21/2014 200Unit Storm, ROLL REPAIRER-C Capsules Slow-Mag 1 by mouth every 30tabs G25.81 Estrada Richmond, 08/21/2014 71.5-119mg day M.D. Tablets Ferrous Sulfate 1 by mouth twice 90tabs [...] Lee, 10mg mouth every [address] Tablets hours as needed for pain Lactulose Take 30MLS By 946units Estrada Richmond, 10GM/15ML Mouth Up To Six M.D. Solution Times Daily Spironolactone take two tablets 180tabs Estrada Richmond, 100mg by mouth every day M.D. Tablets Baclofen Take One Tablet By 90tabs Etsrada Richmond, 10mg Tablets Mouth Twice A Day [...] CPT Code Status Date Vaccine Lot # [id number] Given 06/08/2016 Hep B Vaccine Adult, 3 Dose age >20 yrs [id number] 43689 Given 06/08/2016 Hepatitis A, Adult [id number] 05874 Given 02/11/2016 Hep B Vaccine Adult, 3 Dose age >20 yrs [id number] 16197 Given 11/03/2015 Hep B Vaccine Adult, 3 Dose age >20 yrs [id number] 05131 Given 11/03/2015 Prevnar-13 Pneumococcal Conjugate Vaccine [id number] 08305 Given 11/03/2015 Hepatitis A, Adult [id number] 14211 Given 03/04/2015 Influenza Virus Vaccine, Quadrivalent, 3 Yr > [id number] Quad, Preserv Free 36288 Given 04/28/2014 Pneumovax 23 (PPSV23) 65+ years or high risk 2 to 64 year old 08703 Given 12/19/2012 Zoster Vaccine [id number] 95883 Given 05/17/2012 Tdap (Adacel) [id number] 83208 Given 08/08/2000 DT (Adult) 59229 Refused 01/23/2019 Influenza Virus Vaccine, Quadrivalent, 3 Yr > Quad , Preserv Free 67199 Refused 08/08/2017 Influenza Virus Vaccine, Quadrivalent, 3 Yr > Quad , Preserv Free 70860 Refused 06/06/2017 Influenza Virus Vaccine, Quadrivalent, 3 Yr > Quad , Preserv Free 33676 Refused 01/27/2017 [place] [id number] Refused 07/18/2016 Influenza Virus Vaccine, Quadrivalent, 3 Yr > Quad , Preserv Free 84751 Refused 02/16/2012 Influenza Vaccine-Preservative Free 3 Yrs [...] F Respiratory Rate 18 /min O2 % dC Oximetry 97 % Results Test Acquired Date Facility Test Result H/L Range Note CBC Auto 07/11/2019 [facility] White Blood 11.5 10^3/ uL High 3.5-10.8 Diff [phone] Count Red Blood Count 4.07 10^6/uL Normal 3.70-4.87 Hemoglobin 11.7 g/dL Low 12.0-16.0 Hematocrit 36 % Normal 35-47 Mean Corpuscular Volume 88 fL Normal 80-97 Mean Corpuscular Hemoglobin 29 pg Normal 27-31 Mean Corpuscular HGB Conc 33 g/dL Normal 31-36 Red Cell Distribution Width 18 % High 10-15 Platelet Count 219 10^3/uL Normal 150-450 Mean Platelet Volume 7.4 fL Normal 7.4-10.4 Abs Neutrophils 9.9 10^3/uL High 1.5-7.7 Abs Lymphocytes 0.6 10^3/uL Low 1.0-4.8 Abs Monocytes 1.0 10^3/uL High 0-0.8 Abs Eosinophils 0.0 10^3/uL Normal 0-0.6 Abs Basophils 0.0 10^3/uL Normal 0-0.2 Abs Nucleated RBC 0.0 10^3/uL Granulocyte % 85.8 % Lymphocyte % 5.2 % Monocyte % 8.4 % Eosinophil % 0.2 % Basophil % 0.4 % Nucleated Red Blood Cells % 0.0 Comp Metabolic 07/11/2019 [facility] Sodium 125 mmol/ L Low 135-145 Panel [phone] Potassium 4.0 mmol/L Normal 3.5-5.0 Chloride 97 mmol/L Low 101-111 Co2 Carbon Dioxide 19 mmol/L Low 22-32 Anion Gap 9 mmol/L Normal 2-11 Glucose 129 mg/dL High 70-100 Blood Urea Nitrogen 9 mg/dL Normal 6-24 Creatinine 0.52 mg/dL Normal 0.51-0.95 BUN/Creatinine Ratio 17.3 Normal 8-20 Calcium 8.3 mg/dL Low 8.6-10.3 Total Protein 8.3 g/dL Normal 6.4-8.9 Albumin 2.7 g/dL Low 3.2-5.2 Globulin 5.6 g/dL High 2-4 Albumin/Globulin Ratio 0.5 Low 1-3 Total Bilirubin 1.20 mg/dL High 0.2-1.0 Alkaline Phosphatase 254 U/L High 34-104 Alt 17 U/L Normal 7-52 Ast 32 U/L Normal 13-39 Egfr Non- 118.0 >60 Egfr 142.8 >60 1 Laboratory 07/11/2019 [facility] C Reactive 237.61 mg /L High <8.01 test finding [phone] Protein Drug Screen 06/13/2019 [facility] Urine None None Urine Pain [phone] Hydrocodone Detected Detect Clinic Screen Urine Oxycodone Screen Presumptive Posi <SEE NOTE> Abnormal None Detect 2 Urine Fentanyl Screen Presumptive Posi <SEE NOTE> Abnormal None Detect 3 Urine Methadone Screen None Detected None Detect Urine Buprenorphine Screen None Detected None Detect Urine Amphetamine Screen None Detected None Detect Urine Barbiturates Screen None Detected None Detect Urine Benzodiazepine Screen None Detected None Detect Urine Cannabinoids Screen None Detected None Detect Urine Cocaine Screen None Detected None Detect Urine Opiates Screen Presumptive Posi <SEE NOTE> Abnormal None Detect 4 Urine Phencyclidine Screen None Detected None Detect 5 Comp Metabolic 04/12/2019 [facility] Sodium 134 mmol/ L Low 135-145 Panel [phone] Potassium 3.6 mmol/L Normal 3.5-5.0 Chloride 104 [...] Egfr Non- 104.0 >60 Egfr 125.9 >60 6 CBC Auto 04/12/2019 [facility] White Blood 4.7 10^3/ uL Normal 3.5-10.8 Diff [phone] Count Red Blood Count 3.99 10^6/uL Normal [...] % Nucleated Red Blood Cells % 0.3 Laboratory test 02/24/2019 [facility] Troponin-I (TnI ) 0.00 ng/mL <0.04 7 finding [phone] Acetaminophen < 15 g/mL 8 Alcohol < 10 mg/dL Normal <10 Salicylate < 2.50 mg/dL <30 Comp Metabolic 02/24/2019 [facility] Sodium 132 mmol/ L Low 135-145 Panel [phone] Potassium 3.6 mmol/L Normal 3.5-5.0 Chloride 104 [...] 9 Alkaline Phosphatase 194 U/L High 34-104 Laboratory test 02/24/2019 [facility] Lactic Acid 1.4 mmol/L Normal 0.5-2.0 10 finding [phone] Ammonia 58 mcmol/L High 16-53 CBC Auto 02/24/2019 [facility] White Blood 9.1 10^3/ uL Normal 3.5-10.8 Diff [phone] Count Red Blood Count 4.02 10^6/uL Normal [...] % Nucleated Red Blood Cells % 0.1 Urine Culture And 02/17/2019 [facility] Urine Culture SEE RESULT 11 Sensitivities [phone] BELOW Urinalysis Profile 02/17/2019 [facility] Urine Color Yellow [phone] Urine Appearance Clear Urine Specific [place] 1.012 Normal 1.010-1.030 Urine pH 6.0 Normal [...] Cell Present Abnormal Absent Urine Drug 02/17/2019 [facility] Urine None Detected None Detect SCR ED & [phone] Amphetamine Pain Clinic Screen Urine Barbiturates Screen None Detected None Detect Urine Benzodiazepine Screen None Detected None Detect Urine Cannabinoids Screen None Detected None Detect Urine Opiates Screen None Detected None Detect Urine Phencyclidine Screen None Detected None Detect 12 Urine Cocaine Screen None Detected None Detect Laboratory test 02/17/2019 [facility] Ammonia 86 mcmol/L High 16-53 finding [phone] Inr/Protime 02/17/2019 [facility] Inr 1.41 High 0.82-1.09 13 [phone] Laboratory test 02/17/2019 [facility] Lactic Acid 1.3 mmol/L Normal 0.5-2.0 14 finding [phone] CBC Auto Diff 02/17/2019 [facility] White Blood 6.1 10^3/uL Normal 3.5-10.8 [phone] Count Red Blood Count 3.71 10^6/uL Normal [...] Blood Cells % 0.0 Basic Metabolic 02/04/2019 [facility] Sodium 135 mmol /L Normal 135-145 Panel [phone] Potassium 3.9 mmol/L Normal 3.5-5.0 Chloride 106 mmol/L Normal 101-111 Co2 Carbon Dioxide 18 mmol/L Low 22-32 Anion Gap 11 mmol/L Normal 2-11 Glucose 244 mg/dL High 70-100 Blood Urea Nitrogen 19 mg/dL Normal 6-24 Creatinine 1.06 mg/dL High 0.51-0.95 BUN/Creatinine Ratio 17.9 Normal 8-20 Calcium 8.0 mg/dL Low 8.6-10.3 Egfr Non- 51.9 >60 Egfr 62.8 >60 15 Laboratory test finding 01/30/2019 In House Lab Glucose By Moniter 235 High 78-110 [phone] 1 Because ethnic data is not always [...] 5 Kidney failure <15 (or dialysis) 2 Presumptive Positive Presumptive positive results are unconfirmed. 3 Presumptive Positive Presumptive positive results are unconfirmed. 4 Presumptive Positive Presumptive positive results are unconfirmed. 5 The specimen was tested at the listed cutoffs: Drug Class Test level (ng/mL) Hydrocodone 300 Oxycodone 100 Fentanyl 1 Methadone 150 Buprenorphine 5 Amphetamines 500 Barbiturates 200 Benzodiazepines 200 Cocaine 150 Cannabinoids 50 Opiates 300 PCP 25 Specimen was received without chain of custody. Results should be used for medical purposes only. 6 Because ethnic data is not always readily [...] 15-29 5 Kidney failure <15 (or dialysis) 7 Troponin-I testing on Plasma Separator Tubes (PST) has a known false positive rate of 0.20-0.40%. All positive troponins reflex immediately to secondary confirmatory testing. Using the [employer] 800 Access Immunoassay systems, the 99th percentile upper reference limit was demonstrated to be < 0.03 ng/mL. 8 Therapeutic concentration: <50 ug/mL Toxic concentration: >120 ug/mL 9 Because ethnic data is not always [...] 5 Kidney failure <15 (or dialysis) 10 [facility] Severe Sepsis and Septic Shock Management Bundle Measure requires all lactic acids initially measuring >2.0 mmol/L be repeated. 11 SEE RESULT BELOW Name: ISAIAS SALEH : [address]: Cornelia Montano DO Acct: [id number] Unit: [id number] AGE: 68 Location: [place] [address] Re02/18/19 SEX: F Status: ADM Ana María SPEC: [id number] DENITA: 02/17/[address] [facility] [address]: Trish Michaels MD REQ: [id number] RECD: 02/17/19 STATUS: BENNETT MOREIRA DR: Estrada Richmond MD _ SOURCE: URINE SPDESC: ORDERED: Urine Culture Procedure Result Reported Site Urine Culture Final 02/19/19- 0855 ML No Growth (<1,000 CFU/mL) * ML - Main Lab . END OF REPORT DEPARTMENT OF PATHOLOGY, [address] [place] [address] Miguel Angel Michel M.D. Director [facility] # [id number] 12 The urine specimen was tested at the listed cutoffs: Drug class test level (ng/mL) Amphetamines 500 Barbiturates 200 Benzodiazepine metabolites 200 Cocaine metabolites 150 Cannabinoids 50 Opiates 300 Pcp 25 Specimen was received without chain of custody. Results should be used for medical purposes only. 13 Standard intensity warfarin therapeutic range: 2.0-3.0 High intensity warfarin therapeutic range: 2.5-3.5 14 [facility] Severe Sepsis and Septic Shock Management Bundle Measure requires all lactic acids initially measuring >2.0 mmol/L be repeated. 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 M54.32 Sciatica, left side 3:15p Office Visit 06/15/2019 Main Office Angela Abdul NP S06.0x0A Concussion without 11:15a loss of consciousness, initial encounter W18.12xA Fall from or off toilet w strike against object, init Office Visit 05/28/2019 3:15p Mallory Richmond M.D. R07.89 Other chest pain L20.9 [...] wall Estrada Richmond M.D. Plan of Treatment No Information Available Functional Status Functional Condition Comment Date Status Glasses Active Mental Status Description No Information Available Referrals Refer to Reason for Referral Status Appt Date Amparo Rothman REFERRAL TO: Dr. Rothman for avascular necrosis Created diagnosis. PLEASE SEND CONSULT NOTE TO [facility] @ [phone]. [phone] [place] [address] [phone] [facility] Pain Clinic REFERRAL TO: [facility] for Left Sciatica Created Pain PLEASE CONTACT PT TO SCHEDULE APPT. PLEASE FAX APPOINTMENT DATE/TIME TO [facility] @ [phone]. PLEASE SEND CONSULT NOTE TO [facility] @ [phone]. [phone] [place] [address] [phone]
--- OUTSIDE RECORDS SUMMARY | 2019-08-04 19:26 | XMS REPORT | Continuity of Care Document ---
:1950 External Reference #:[id number] Author Name Matthew Nelson MD (transmitted by agent of provider Dory Bryan) Address [address] [place] [address], [place] [address] Care Team Providers Name Role Phone Estrada Richmond M.D. - Family Medicine Care Team Information Court Advocate [phone] Problems Active Problems Provider Date Lumbar radiculopathy [...] Murillo MD Onset: 02/21/2018 Mild cognitive disorder Marcelion Murillo MD Onset: 02/21/2018 Mild cognitive disorder [...] Ordering Date Provider Oxygen Patient would like [place] 02/27/2019 [facility] to discontinue MARGUERITE Chong supplemental oxygen against [...] Richmond, 08/18/2014 day M.D. 325(65Fe) mg Tablets Xifaxan 1 tablets two Unknown 200mg Tablets times a day Cefazolin Sodium 2gm iv every 8 hrs Unknown a [place] 2GM/20ML Soln Prefill Syringe Baclofen 1 tab bid Ng, 10mg Tablets MAYNOR Bowman Vitamin E 1 [...] Available Procedures Date Code Description Status 07/12/2019 43572 ECHO Transthorasic Realtime 2D W Doppler & Color Flow Hosp Completed Medical Devices Description No Information Available Encounters Type Date Location Provider Dx Diagnosis Office Visit 07/18/2019 [facility] Dulce Maria Jacques I05.9 Rheumatic mitral 10:52a nithya Snyder MD valve disease, Hospitalists unspecified R21 Rash and other nonspecific skin eruption F41.8 Other specified anxiety disorders Office Visit 07/17/2019 10:51a [facility] Dulce Maria Santoro05.9 Rheumatic mitral nithya Snyder MD valve disease, Hospitalists unspecified R21 Rash and other nonspecific skin eruption F41.8 Other specified anxiety disorders 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 I05.9 Rheumatic mitral Assoc,nithya Jacques MD valve disease, Hospitalists unspecified B95.61 Methicillin suscep staph infct causing dis classd elswhr F41.8 Other specified anxiety disorders Office Visit 07/15/2019 10:49a 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 M25.552 Pain in Infectious Christiano, ACCOUNT CLASSIFICATION CLERK left hip Diseases R78.81 Bacteremia B95.7 Oth staphylococcus as the cause of diseases classd elswhr M54.2 Cervicalgia K70.30 Alcoholic cirrhosis of liver without ascites Office Visit 07/12/2019 12:14p [facility] Amparo Rothman, M25.552 Pain in left at [place] M.D. 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 headache, Hospitalists unspecified, intractable G89.4 Chronic pain syndrome K70.30 Alcoholic cirrhosis of liver without ascites E11.9 Type 2 diabetes mellitus without complications G25.81 Restless legs syndrome Office Visit 02/24/2019 9:06a [facility] Assoc,nithya Thomas DO R51 Headache Hospitalists G89.4 Chronic pain syndrome G25.81 Restless legs syndrome Z79.891 lobsterman (current) use of opiate analgesic Office Visit 02/19/2019 8:30a [facility] Franny Peng L97.828 Non- prs chronic [place] [facility] [place]ARGU[place]ITE Alvarado ulcer oth prt l low leg with oth severity L97.818 Non-prs chronic ulcer oth prt r low leg with oth severity E11.622 Type 2 diabetes mellitus with other skin ulcer I87.2 Venous insufficiency (chronic) (peripheral) E66.9 Obesity, unspecified Z68.36 Body mass index (BMI) 36.0-36.9, adult Office Visit 02/18/2019 9:05a [facility] Galina K72.90 Hepatic failure, Assoc,nithya Chaudhry M.D. unspecified Hospitalists without coma E11.9 Type 2 diabetes mellitus without complications G25.81 Restless legs syndrome G89.29 Other chronic pain Assessments Date Code Description Provider 07/19/2019 A41.01 Sepsis due to Methicillin susceptible Dulce Maria Jacques MD Staphylococcus aureus 07/19/2019 I05.9 Rheumatic mitral valve disease, Dulce Maria Jacques MD unspecified 07/19/2019 M87.052 Idiopathic aseptic necrosis of left Dulce Maria Jacques MD femur 07/19/2019 E11.9 Type 2 diabetes mellitus without Dulce Maria Jacques MD complications 07/19/2019 M54.9 Dorsalgia, unspecified Dulce Maria Jacques MD 07/19/2019 M25.552 Pain in left hip Dulce Maria Jacques MD 07/19/2019 K70.30 Alcoholic cirrhosis of liver without Dulce Maria Jacques MD ascites 07/19/2019 R21 Rash and other nonspecific skin Dulce Maria Jacques MD eruption 07/18/2019 I05.9 Rheumatic mitral valve disease, Dulce Maria Jacques MD unspecified 07/18/2019 R21 Rash and other nonspecific skin Dulce Maria Jacques MD eruption 07/18/2019 F41.8 Other specified anxiety disorders Dulce Maria Jacques MD 07/17/2019 I05.9 Rheumatic mitral valve disease, Dulce Maria Jacques MD unspecified 07/17/2019 I33.0 Acute and subacute infective Franny Alvarado, ACCOUNT CLASSIFICATION CLERK endocarditis 07/17/2019 R21 Rash and other nonspecific skin Dulce Maria Jacques MD eruption 07/17/2019 M87.052 Idiopathic aseptic necrosis of left Franny Saeaminah Alvarado, ACCOUNT CLASSIFICATION CLERK femur 07/17/2019 F41.8 Other specified anxiety disorders Dulce Maria Jacques MD 07/17/2019 K70.30 Alcoholic cirrhosis of liver without Franny Alvarado, ACCOUNT CLASSIFICATION CLERK ascites 07/17/2019 E11.9 Type 2 diabetes mellitus without Franny Alvarado, ACCOUNT CLASSIFICATION CLERK complications 07/16/2019 I05.9 Rheumatic mitral valve disease, Dulce Maria Jacques MD unspecified 07/16/2019 B95.61 Methicillin susceptible Dulce Maria Jacques MD Staphylococcus aureus infection as the cause of diseases classified elsewhere 07/16/2019 F41.8 Other specified anxiety disorders Dulce Maria Jacques MD 07/15/2019 I05.9 Rheumatic mitral valve disease, Dulce Maria Jacques MD unspecified 07/15/2019 I33.0 Acute and subacute infective Frannybasilia Alvarado, ACCOUNT CLASSIFICATION CLERK endocarditis 07/15/2019 R21 Rash and other nonspecific skin Dulce Maria Jacques MD eruption 07/15/2019 M87.052 Idiopathic aseptic necrosis of left Franny Klarissalaaminah Alvarado, ACCOUNT CLASSIFICATION CLERK femur 07/15/2019 F41.8 Other specified anxiety disorders Dulce Maria Jacques MD 07/15/2019 K70.30 Alcoholic cirrhosis of liver without Franny Alvarado NP ascites 07/15/2019 E11.9 Type 2 diabetes mellitus without Franny Alvarado NP complications 07/14/2019 I05.9 Rheumatic mitral valve disease, Dulce Maria Jacques MD unspecified 07/14/2019 F41.8 Other specified anxiety disorders Dulce Maria Jacques MD 07/14/2019 R21 Rash and other nonspecific skin Dulce Maria Jacques MD eruption 07/13/2019 E87.1 Hypo-osmolality and hyponatremia Margaret Anuja, ACCOUNT CLASSIFICATION CLERK 07/13/2019 B95.61 Methicillin susceptible Margaret Anuja, ACCOUNT CLASSIFICATION CLERK Staphylococcus aureus infection as the cause of diseases classified elsewhere 07/13/2019 M87.052 Idiopathic aseptic necrosis of left Margaret Anuja, ACCOUNT CLASSIFICATION CLERK femur 07/13/2019 R23.8 Other skin changes Margaret Anuja, ACCOUNT CLASSIFICATION CLERK 07/12/2019 A41.01 Sepsis due to Methicillin susceptible Matthew Nelson MD Staphylococcus aureus 07/12/2019 R78.81 Bacteremia Nia Nichole M.D. 07/12/2019 D64.9 Anemia, unspecified Matthew Nelson MD 07/12/2019 M25.552 Pain in left hip Amparo Rothman M.D. 07/12/2019 E11.9 Type 2 diabetes mellitus without Matthew Nelson MD complications 07/12/2019 M25.552 Pain in left hip Franny Alvarado, ACCOUNT CLASSIFICATION CLERK 07/12/2019 M87.052 Idiopathic aseptic necrosis of left Matthew Nelson MD femur 07/12/2019 M87.052 Idiopathic aseptic necrosis of left Amparo Rothman M.D. femur 07/12/2019 M25.552 Pain in left hip Matthew Nelson MD 07/12/2019 R78.81 Bacteremia Franny Alvarado, ACCOUNT CLASSIFICATION CLERK 07/12/2019 E87.1 Hypo-osmolality and hyponatremia Matthew Nelson MD 07/12/2019 M16.12 Unilateral primary osteoarthritis, Amparo Rothman M.D. left hip 07/12/2019 B95.7 Other staphylococcus as the cause of Franny Alvarado NP diseases classified elsewhere 07/12/2019 M54.2 Cervicalgia Franny Alvarado NP 07/12/2019 K70.30 Alcoholic cirrhosis of liver without Franny Alvarado NP ascites 07/11/2019 M25.552 Pain in left hip Millicent Villar M.D. 07/11/2019 M87.052 Idiopathic aseptic necrosis of left Millicent Villar M.D. femur 07/11/2019 E87.1 Hypo-osmolality and hyponatremia Millicent Villar M.D. 07/11/2019 I87.2 Venous insufficiency (chronic) Millicent Villar M.D. (peripheral) 03/14/2019 G47.33 Obstructive sleep apnea (adult) Peggy [...] legs syndrome Rosenda Thomas, DO 02/24/2019 Z79.891 group home (current) use of opiate Rosenda Thomas DO analgesic 02/19/2019 L97.828 Non-pressure chronic ulcer of other Frannybasilia Godfreyphuonghesham Alvarado NP part of left lower leg with other specified severity 02/19/2019 L97.818 Non-pressure chronic ulcer of other Frannybasilia Godfreyphuonghesham Alvarado NP part of right lower leg with other specified severity 02/19/2019 E11.622 Type 2 diabetes mellitus with other Franny Alvarado NP skin ulcer 02/19/2019 I87.2 Venous insufficiency (chronic) Franny Alvarado NP (peripheral) 02/19/2019 E66.9 Obesity, unspecified Franny Alvarado NP 02/19/2019 Z68.36 Body mass index (BMI) 36.0-36.9, Franny Alvarado NP adult 02/18/2019 K72.90 Hepatic failure, unspecified without Galina Chaudhry M.D. coma 02/18/2019 E11.9 Type 2 diabetes mellitus without Galina Chaudhry M.D. complications 02/18/2019 G25.81 Restless legs syndrome Galina Chaudhry M.D. 02/18/2019 G89.29 Other chronic pain Galina Chaudhry M.D. Plan of Treatment Future Appointment(s):08/07/2019 1:30 pm - Franny Alvarado NP at [facility] Kwdvuqre14/21/2019 - Peggy Chong NPG47.33 Obstructive sleep apnea (adult) (pediatric)Follow up:PRNRecommendations:If you decide you would like to resume CPAP/supplemental oxygen usage, please call our office for anappointment. If you return your machine you will need to have an in -lab sleep study to resume usage.R09.02 Hypoxemia Functional Status Description No Information Available Mental Status Description No Information Available Referrals Description No Information Available
--- OUTSIDE RECORDS SUMMARY | 2019-08-04 19:26 | XMS REPORT | Continuity of Care Document ---
:1950 External Reference #:[id number] Author Name Nia Nichole M.D. (transmitted by agent of provider Yoon Cristina) Address [address] [place] [id number] Care Team Providers Name Role Phone Estrada Richmond M.D. - Family Medicine Care Team Information Shanker Out Problems Active Problems Provider Date Lumbar radiculopathy [...] Oxygen Patient would like [place]iko [place] 02[place]27[place] [facility] [place]ue MARGUERITE Chong supplemental oxygen against [...] Available Procedures Date Code Description Status 07/12/2019 47260 ECHO Transthorasic Realtime 2D W Doppler & Color Flow Hosp Completed Medical Devices Description No Information Available Encounters Type Date Location Provider Dx Diagnosis Office Visit 07/17/2019 [facility] Franny Peng I33.0 Acute and subacute 8:48a Toney Alvarado NP infective Diseases endocarditis 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 K70.30 Alcoholic cirrhosis of liver without ascites E11.9 Type 2 diabetes mellitus without complications Office Visit 07/15/2019 [facility] Franny Peng I33.0 Acute and subacute 8:45a For Toney Alvarado NP infective Diseases endocarditis 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 unspecified Hospitalists without coma E11.9 Type 2 diabetes mellitus without complications G25.81 Restless legs syndrome G89.29 Other chronic pain Assessments Date Code Description Provider 07/17/2019 I33.0 Acute and subacute infective Franny Alvarado NP endocarditis 07/17/2019 M87.052 Idiopathic aseptic necrosis of left Franny Ginette Alvarado, DIRECTOR OF RECRUITING femur 07/17/2019 K70.30 Alcoholic cirrhosis of liver without Franny Ginette Alvarado, DIRECTOR OF RECRUITING ascites 07/17/2019 E11.9 Type 2 diabetes mellitus without Franny Alvarado, DIRECTOR OF RECRUITING complications 07/15/2019 I33.0 Acute and subacute infective Franny Alvarado, DIRECTOR OF RECRUITING endocarditis 07/15/2019 M87.052 Idiopathic aseptic necrosis of left Franny Ginette Alvarado, DIRECTOR OF RECRUITING femur 07/15/2019 K70.30 Alcoholic cirrhosis of liver without Franny Ginette Alvarado, DIRECTOR OF RECRUITING ascites 07/15/2019 E11.9 Type 2 diabetes mellitus without Franny Ginette Alvarado, DIRECTOR OF RECRUITING complications 07/12/2019 R78.81 Bacteremia Nia Nichole M.D. 07/12/2019 M25.552 Pain in left hip Amparo Rothman M.D. 07/12/2019 M25.552 Pain in left hip Franny Singhezphuongmargaretaminah Christiano, DIRECTOR OF RECRUITING 07/12/2019 M87.052 Idiopathic aseptic necrosis of left Amparo Rothman M.D. femur 07/12/2019 R78.81 Bacteremia Franny Peng Alvarado, DIRECTOR OF RECRUITING 07/12/2019 M16.12 Unilateral primary osteoarthritis, Amparo Rothman M.D. left hip 07/12/2019 B95.7 Other staphylococcus as the cause of Franny Peng Alvarado, MARGUERITE diseases classified elsewhere 07/12/2019 M54.2 Cervicalgia Franny Alvarado, DIRECTOR OF RECRUITING 07/12/2019 K70.30 Alcoholic cirrhosis of liver without Franny Epifaniodaylinaminah Alvarado, DIRECTOR OF RECRUITING ascites 03/14/2019 G47.33 Obstructive sleep apnea (adult) [...] Maurilio Leong M.D. 02/24/2019 R51 Headache Rosenda Chaoban, DO 02/24/2019 G89.4 Chronic pain syndrome Rosenda William, DO 02/24/2019 G25.81 Restless legs syndrome Rosenda Chaoban, DO 02/24/2019 Z79.891 [facility] (current) use of opiate Rosenda William, DO analgesic 02/19/2019 L97.828 Non-pressure chronic ulcer [...] 1:30 pm - Franny Alvarado NP at [facility] Qcoihutc28/21/2019 - Peggy Chong NPG47.33 Obstructive sleep apnea [...]
--- OUTSIDE RECORDS SUMMARY | 2019-08-04 19:26 | XMS REPORT | Continuity of Care Document ---
:1950 External Reference #:[id number] Author Name Franny Alvarado NP (transmitted by agent of provider Dory Bryan) Address [address] [place] [id number] Care Team Providers Name Role Phone Estrada Richmond M.D. - Family Medicine Care Team Information Access Specialist [phone] Problems Active Problems Provider Date Lumbar radiculopathy [...] Oxygen Patient would like [place] [facility] [place] MARGUERITE Chong supplemental oxygen against [...] Available Procedures Date Code Description Status 07/12/2019 51183 ECHO Transthorasic Realtime 2D W Doppler & Color Flow Hosp Completed Medical Devices Description No Information Available Encounters Type Date Location Provider Dx Diagnosis Office Visit 07/17/2019 [facility] Franny Peng I33.0 Acute and subacute 8:48a Toney Alvarado NP infective Diseases endocarditis 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 K70.30 Alcoholic cirrhosis of liver without ascites E11.9 Type 2 diabetes mellitus without complications Office Visit 07/15/2019 [facility] Franny Peng I33.0 Acute and subacute 8:45a For Toney Alvarado NP infective Diseases endocarditis 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 K70.30 Alcoholic cirrhosis of liver without ascites E11.9 Type 2 diabetes mellitus without complications Office Visit 07/12/2019 8:43a [facility] Franny Peng M25.552 Pain in Toney Alvarado NP left hip Diseases R78.81 Bacteremia B95.7 Oth staphylococcus as the cause of diseases classd elswhr M54.2 Cervicalgia K70.30 Alcoholic cirrhosis of liver without ascites Office Visit 03/14/2019 [facility] G47.33 Obstructive sleep 10:30a [facility] Chong apnea (adult) 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 headache, Hospitalists unspecified, intractable G89.4 Chronic pain syndrome K70.30 Alcoholic cirrhosis of liver without ascites E11.9 Type 2 diabetes mellitus without complications G25.81 Restless legs syndrome Office Visit 02/24/2019 9:06a [facility] Assroberta,nithya Thomas DO R51 Headache Hospitalists G89.4 Chronic pain syndrome G25.81 Restless legs syndrome Z79.891 remote computer terminal operator (current) use of opiate analgesic Office Visit 02/19/2019 8:30a [facility] Care Franny Peng L97.828 Non- prs chronic [place] [facility] [place] Alvarado ulcer oth prt l low leg with oth severity L97.818 Non-prs chronic ulcer oth prt r low leg with oth severity E11.622 Type 2 diabetes mellitus with other skin ulcer I87.2 Venous insufficiency (chronic) (peripheral) E66.9 Obesity, unspecified Z68.36 Body mass index (BMI) 36.0-36.9, adult Office Visit 02/18/2019 9:05a [facility] Galina K72.90 Hepatic failure, Assoc,nithya Chaudhry [...] Type 2 diabetes mellitus without Franny Alvarado, HVAC SERVICES PROFESSIONAL complications 07/15/2019 I33.0 Acute and subacute infective Franny Singhdarenmargaretaminah Alvarado, HVAC SERVICES PROFESSIONAL endocarditis 07/15/2019 M87.052 Idiopathic aseptic necrosis of left Franny Alvarado, HVAC SERVICES PROFESSIONAL femur 07/15/2019 K70.30 Alcoholic cirrhosis of liver without Franny Ginette Alvarado, HVAC SERVICES PROFESSIONAL ascites 07/15/2019 E11.9 Type 2 diabetes mellitus without Frannybasilia Alvarado, HVAC SERVICES PROFESSIONAL complications 07/12/2019 M25.552 Pain in left hip Frannybasilia Alvarado, HVAC SERVICES PROFESSIONAL 07/12/2019 R78.81 Bacteremia Franny Ginette Alvarado, HVAC SERVICES PROFESSIONAL 07/12/2019 B95.7 Other staphylococcus as the cause [...] legs syndrome Rosenda Thomas, DO 02/24/2019 Z79.891 remote computer terminal operator (current) use of opiate Rosenda Thomas [...]
--- OUTSIDE RECORDS SUMMARY | 2019-08-04 19:26 | XMS REPORT | Continuity of Care Document ---
:1950 External Reference #:[id number] Author Name Estrada Richmond M.D. (transmitted by agent of provider Sahgufta Santillan) Address [address] [place] [id number] Care Team Providers Name Role Phone Justin Suarez MD - Care Team Information Rotogravure Press Operator [phone] Gastroenterology [facility] Pain [facility] - Pain Care Team Information Rotogravure Press Operator [phone] [facility] Wound Care Clinic Care Team Information Rotogravure Press Operator [phone] Marcelino Murillo - Neurology Care Team Information Rotogravure Press Operator [phone] Problems Active Problems Provider Date Cirrhosis of [...] Medications SIG Qnty Indications Ordering Date Provider Hydrocortisone (compounded with 453.600gm Estrada Richmond, 07/31/2019 2.5% Zinc Oxide) apply M.D. Cream to lower legs two times a day as needed Wheeled Walker With Dx 25.552 Estrada Richmond, [...] Richmond, 03/12/2018 Strips Daily as Directed M.D. DPSItouch Ultrasoft 2 every day and 100units Estrada Richmond, 03/12/2018 Lancets as needed M.D. Misc Potassium Chloride Take One Tablet 90tabs Estrada Richmond, 03/04/2018 Tyra ER By Mouth Three M.D. 20Meq Tablets Times A Day ER Ammonium Lactate apply to [...] without eating Calcium 600 Take One Tablet 60tabs M48.48xA Estrada Richmond, 08/11/2016 600mg By Mouth Twice A M.D. Tablets Day Zinc 1 po bid 30tabs Estrada Richmond, 01/08/2016 50mg Tablets M.D. Slow-Mag 1 by mouth every 30tabs G25.81 Estrada Richmond, 08/21/2014 71.5-119mg day M.D. Tablets Vitamin E 1 po qd Veronica Russo 08/21/2014 200UnHELGA Ford Capsules Ferrous Sulfate 1 by mouth twice 90tabs Estrada Richmond, 08/18/2014 every day M.D. 325(65Fe) mg Tablets Mirtazapine Take One Tablet 30tabs F41.9 Estrada Richmond, 07/24/2014 30mg By Mouth AT M.D. Tablets Bedtime Pantoprazole Sodium Take One Tablet 30tabs R11.2 Estrada Richmond, 04/23/2014 By Mouth Every M.D. 20mg Tablets DR Kizzy Ocuvite Adult 50+ Take one po daily 90caps Deonna M. 02/03/2014 Brandie Barnes Capsules Vitamin D-3 1 po qod 90tabs E55.9 Deonna M. 06/28/2013 2000Unit Brandie Barnes Tablets Oxycodone HCL take one tablet 30tabs Cierra Lee, 10mg by mouth every 4 RESIDENT PROGRAMS ASSISTANT Tablets to 6 hours as needed for pain Lactulose Take 30MLS By 946units Estrada Richmond, 10GM/15ML Mouth Up To Six M.D. Solution Times Daily Spironolactone take two tablets 180tabs Estrada Richmond, 100mg by mouth every M.D. Tablets day Baclofen Take One Tablet 90tabs Estrada Richmond, 10mg Tablets By Mouth Twice A M.D. Day as Needed; May Cause Sedation / Confusion Fentanyl apply 1 patch 10units Unknown 25mcg/HR every 72 hours Patches 72HR Xifaxan 1 po bid Unknown 200mg Tablets History Medications Furosemide by mouth every day Estrada Richmond M.D. 02/27/2019 - 04/02/2019 40mg Tablets Medications Administered in Office Medication SIG Qnty Indications Ordering Provider Date Injection Ketorolac Tromethamine Kendrick Sibley MD 09/01/2017 Per 15 MG (Toradol) Injection Immunizations CPT Code Status Date Vaccine Lot # [id number] Given 06/08/2016 Hep B Vaccine Adult, 3 Dose age >20 yrs [id number] 92319 Given 06/08/2016 Hepatitis A, Adult [id number] 32717 Given 02/11/2016 Hep B Vaccine Adult, 3 Dose age >20 yrs [id number] 33602 Given 11/03/2015 Hep B Vaccine Adult, 3 Dose age >20 yrs [id number] 85584 Given 11/03/2015 Prevnar-13 Pneumococcal Conjugate Vaccine [id number] 79340 Given 11/03/2015 Hepatitis A, Adult [id number] 72575 Given 03/04/2015 Influenza Virus Vaccine, Quadrivalent, 3 Yr > [id number] Quad, Preserv Free 90580 Given 04/28/2014 Pneumovax 23 (PPSV23) 65+ years or high risk 2 to 64 year old 76529 Given 12/19/2012 Zoster Vaccine [id number] 60413 Given 05/17/2012 Tdap (Adacel) [id number] 26411 Given 08/08/2000 DT (Adult) 66280 Refused 01/23/2019 Influenza Virus Vaccine, Quadrivalent, 3 Yr > Quad , Preserv Free 34580 Refused 08/08/2017 Influenza Virus Vaccine, Quadrivalent, 3 Yr > Quad , Preserv Free 40268 Refused 06/06/2017 Influenza Virus Vaccine, Quadrivalent, 3 Yr > Quad , Preserv Free 36844 Refused 01/27/2017 [place] [address] Refused 07/18/2016 Influenza Virus Vaccine, Quadrivalent, 3 Yr > Quad , Preserv Free 78661 Refused 02/16/2012 Influenza Vaccine-Preservative Free 3 Yrs And Above Vital Signs Date Vital Result Comment 07/31/2019 2:41pm BP Systolic 131 mmHg BP Diastolic 75 mmHg Heart Rate 102 /min 06/19/2019 3:15pm Weight 155.00 lb Weight 70.308 kg BP Systolic 118 mmHg BP Diastolic 70 mmHg Heart Rate 110 /min Body Temperature 98.1 F Respiratory Rate 20 /min O2 % BldC Oximetry 98 % Results Test Acquired Date Facility Test Result H/L Range Note CBC Auto 07/11/2019 [facility] White Blood 11.5 10^3/ uL High 3.5-10.8 Diff [phone] Count Red Blood Count 4.07 10^6/uL Normal [...] Blood Cells % 0.0 Comp Metabolic 07/11/2019 [facility] Sodium 125 mmol/ L Low 135-145 Panel [phone] Potassium 4.0 mmol/L Normal 3.5-5.0 Chloride 97 [...] >60 Egfr 142.8 >60 1 Laboratory 07/11/2019 [facility] C Reactive 237.61 mg /L High <8.01 test finding [phone] Protein Drug Screen 06/13/2019 [facility] Urine None None Urine Pain [phone] Hydrocodone Detected Detect Clinic Screen Urine Oxycodone [...] Detected None Detect 5 Comp Metabolic 04/12/2019 [facility] Sodium 134 mmol/ L Low 135-145 Panel [phone] Potassium 3.6 mmol/L Normal 3.5-5.0 Chloride 104 [...] Egfr 125.9 >60 6 CBC Auto 04/12/2019 [facility] White Blood 4.7 10^3/ uL Normal 3.5-10.8 Diff [phone] Count Red Blood Count 3.99 10^6/uL Normal [...] Blood Cells % 0.3 Laboratory test 02/24/2019 [facility] Troponin-I (TnI ) 0.00 ng/mL <0.04 7 finding [phone] Acetaminophen < 15 g/mL 8 Alcohol < 10 mg/dL Normal <10 Salicylate < 2.50 mg/dL <30 Comp Metabolic 02/24/2019 [facility] Sodium 132 mmol/ L Low 135-145 Panel [phone] Potassium 3.6 mmol/L Normal 3.5-5.0 Chloride 104 [...] 194 U/L High 34-104 Laboratory test 02/24/2019 [facility] Lactic Acid 1.4 mmol/L Normal 0.5-2.0 10 finding [phone] Ammonia 58 mcmol/L High 16-53 CBC Auto 02/24/2019 [facility] White Blood 9.1 10^3/ uL Normal 3.5-10.8 Diff [phone] Count Red Blood Count 4.02 10^6/uL Normal [...] Cells % 0.1 Urine Culture And 02/17/2019 [facility] Urine Culture SEE RESULT 11 Sensitivities [phone] BELOW Urinalysis Profile 02/17/2019 [facility] Urine Color Yellow [phone] Urine Appearance Clear Urine Specific [place] 1.012 Normal 1.010-1.030 Urine pH 6.0 Normal [...] Cell Present Abnormal Absent Urine Drug 02/17/2019 [facility] Urine None Detected None Detect SCR ED & [phone] Amphetamine Pain Clinic Screen Urine Barbiturates Screen None Detected None Detect Urine Benzodiazepine Screen None Detected None Detect Urine Cannabinoids Screen None Detected None Detect Urine Opiates Screen None Detected None Detect Urine Phencyclidine Screen None Detected None Detect 12 Urine Cocaine Screen None Detected None Detect Laboratory test 02/17/2019 [facility] Ammonia 86 mcmol/L High 16-53 finding [phone] Inr/Protime 02/17/2019 [facility] Inr 1.41 High 0.82-1.09 13 [phone] Laboratory test 02/17/2019 [facility] Lactic Acid 1.3 mmol/L Normal 0.5-2.0 14 finding [phone] CBC Auto Diff 02/17/2019 [facility] White Blood 6.1 10^3/uL Normal 3.5-10.8 [phone] Count Red Blood Count 3.71 10^6/uL Normal [...] Blood Cells % 0.0 Basic Metabolic 02/04/2019 [facility] Sodium 135 mmol /L Normal 135-145 Panel [phone] Potassium 3.9 mmol/L Normal 3.5-5.0 Chloride 106 [...] finding 01/30/2019 In House Lab Glucose By Brittany 235 High 78-110 [phone] Because ethnic data is not [...] immediately to secondary confirmatory testing. Using the Eved DxI 800 Access Immunoassay systems, the 99th [...] 5 Kidney failure <15 (or dialysis) 10 [facility] Severe Sepsis and Septic Shock Management Bundle Measure requires all lactic acids initially measuring >2.0 mmol/L be repeated. 11 SEE RESULT BELOW Name: ISAIAS SALEH : [address]: Cornelia Montano DO Acct: [id number] Unit: [id number] AGE: 68 Location: [place] [address] Re02/18/19 SEX: F Status: ADM Ana María SPEC: [id number] DENITA: 02/17/19 [facility] DR: Trish Michaels MD REQ: [id number] RECD: 02/17/19 STATUS: BENNETT MOREIRA DR: Estrada Richmond MD _ SOURCE: [facility]: ORDERED: Urine Culture Procedure Result Reported Site Urine Culture Final 02/19/19- 0855 ML No Growth (<1,000 CFU/mL) * ML - Main Lab . END OF REPORT DEPARTMENT OF PATHOLOGY, [address] [place] [address] Miguel Angel Michel M.D. Director [facility] # [id number] 12 The urine specimen was tested at the listed cutoffs: Drug class test level (ng/mL) Amphetamines 500 Barbiturates 200 Benzodiazepine metabolites 200 Cocaine metabolites 150 Cannabinoids 50 Opiates 300 Pcp 25 Specimen was received without chain of custody. Results should be used for medical purposes only. 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 M54.32 Sciatica, left side 3:15p Office Visit 06/15/2019 Main Office Angela Abdul NP S06.0x0A Concussion without 11:15a loss of consciousness, initial encounter W18.12xA Fall from or off toilet w strike against object, init Office Visit 05/28/2019 3:15p [place] Rubén Richmond M.D. R07.89 Other chest pain L20.9 Atopic dermatitis, unspecified Office Visit 04/02/2019 3:15p [facility] Estrada Richmond E11.9 Type 2 diabetes M.DVarsha mellitus without complications K74.69 Other cirrhosis of liver L29.9 Pruritus, unspecified M54.2 Cervicalgia M25.552 Pain in left hip Office Visit 02/27/2019 3:30p Main Office Estrada Richmond M.D. 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 femur 07/31/2019 K74.69 Other cirrhosis of liver Esrtada Richmond M.D. 07/10/2019 M87.851 Other osteonecrosis, right femur Kendrick [...] diabetes mellitus without Estrada Richmond M.D. complications Plan of Treatment 07/31/2019 - Estrada Richmond M.D.I38 Endocarditis, valve unspecifiedFollow up:Video visit 1 weekM87.059 Idiopathic aseptic necrosis of unspecified hpgdxB86.69 Other cirrhosis of liver Functional Status Functional Condition Comment Date Status Glasses Active Mental Status Description No Information Available Referrals Refer to Reason for Referral Status Appt Date Amparo Rothman REFERRAL TO: Dr. Rothman for avascular necrosis Created diagnosis. PLEASE SEND CONSULT NOTE TO [facility] @ [phone]. [phone] [place] [address] [phone] [facility] Pain Clinic REFERRAL TO: [facility] Pain Clinic for Left Sciatica Created Pain PLEASE CONTACT PT TO SCHEDULE APPT. PLEASE FAX APPOINTMENT DATE/TIME TO [facility] @ [phone]. PLEASE SEND CONSULT NOTE TO [facility] @ [phone]. [address] [place] [address] [phone]
--- OUTSIDE RECORDS SUMMARY | 2019-08-04 19:26 | XMS REPORT | Continuity of Care Document ---
:1950 External Reference #:[id number] Author Name Franny Alvarado NP (transmitted by agent of provider Dory Bryan) Address [address] [place] [id number] Care Team Providers Name Role Phone Estrada Richmond M.D. - Family Medicine Care Team Information Obstetrician/Gynecologist [phone] Problems Active Problems Provider Date Lumbar radiculopathy [...] Oxygen Patient would like 1unmiko Woods 02/27/2019 [facility] to discontinue MARGUERITE Chong [...] Available Procedures Date Code Description Status 07/12/2019 35526 ECHO Transthorasic Realtime 2D W Doppler & Color Flow Hosp Completed Medical Devices Description No Information Available Encounters Type Date Location Provider Dx Diagnosis Office Visit 07/17/2019 [facility] Franny Peng I33.0 Acute and subacute 8:48a Toney Alvarado NP infective Diseases endocarditis 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 K70.30 Alcoholic cirrhosis of liver without ascites E11.9 Type 2 diabetes mellitus without complications Office Visit 07/15/2019 [facility] Franny Peng I33.0 Acute and subacute 8:45a For Toney Alvarado NP infective Diseases endocarditis 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 K70.30 Alcoholic cirrhosis of liver without ascites E11.9 Type 2 diabetes mellitus without complications Office Visit 07/12/2019 8:43a [facility] Franny Peng M25.552 Pain in Toney Alvarado NP left hip Diseases R78.81 Bacteremia B95.7 Oth staphylococcus as the cause of diseases classd elswhr M54.2 Cervicalgia K70.30 Alcoholic cirrhosis of liver without ascites Office Visit 03/14/2019 [facility] Peggy G47.33 Obstructive sleep 10:30a [facility] MARGUERITE Chong apnea (adult) 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 Office Visit 02/19/2019 8:30a Wound Care Franny Peng L97.828 Non- prs chronic Center [facility] MARGUERITE Alvarado ulcer oth prt l low leg with oth severity L97.818 Non-prs chronic ulcer oth prt r low leg with oth severity E11.622 Type 2 diabetes mellitus with other skin ulcer I87.2 Venous insufficiency (chronic) (peripheral) E66.9 Obesity, unspecified Z68.36 Body mass index (BMI) 36.0-36.9, adult Office Visit 02/18/2019 9:05a [facility] Galina K72.90 Hepatic failure, Assoc,nithya Chaudhry [...] Type 2 diabetes mellitus without Franny Alvarado, MOLD DESIGN ENGINEER complications 07/15/2019 I33.0 Acute and subacute infective Franny Singhdarenmargaretaminah Alvarado, MOLD DESIGN ENGINEER endocarditis 07/15/2019 M87.052 Idiopathic aseptic necrosis of left Franny Alvarado, MOLD DESIGN ENGINEER femur 07/15/2019 K70.30 Alcoholic cirrhosis of liver without Franny Ginette Alvarado, MOLD DESIGN ENGINEER ascites 07/15/2019 E11.9 Type 2 diabetes mellitus without Frannybasilia Alvarado, MOLD DESIGN ENGINEER complications 07/12/2019 M25.552 Pain in left hip Frannybasilia Alvarado, MOLD DESIGN ENGINEER 07/12/2019 R78.81 Bacteremia Franny Ginette Alvarado, MOLD DESIGN ENGINEER 07/12/2019 B95.7 Other staphylococcus as the cause [...] legs syndrome Rosenda Thomas, DO 02/24/2019 Z79.891 extermination supervisor (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
--- OUTSIDE RECORDS SUMMARY | 2019-08-04 19:26 | XMS REPORT | Continuity of Care Document ---
:1950 External Reference #:[id number] Author Name Amparo Rothman M.D. (transmitted by agent of provider Roya Garrison) Address [address] [place] [address] [place] [address] Care Team Providers Name Role Phone Estrada Richmond M.D. 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 Problems Active Problems Provider Date Lumbar radiculopathy [...] Ordering Date Provider Oxygen Patient would like Allenunmiko Woods 02/27/2019 [facility] to discontinue MARGUERITE Chong supplemental oxygen against [...] Available Procedures Date Code Description Status 07/12/2019 41798 ECHO Transthorasic Realtime 2D W Doppler & Color Flow Hosp Completed Medical Devices Description No Information Available Encounters Type Date Location Provider Dx Diagnosis Office Visit 07/17/2019 [facility] Franny Peng I33.0 Acute and subacute 8:48a Toney Alvarado NP infective Diseases endocarditis 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 K70.30 Alcoholic cirrhosis of liver without ascites E11.9 Type 2 diabetes mellitus without complications Office Visit 07/15/2019 [facility] Franny Peng I33.0 Acute and subacute 8:45a For Toney Alvarado NP infective Diseases endocarditis 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 headache, Hospitalists unspecified, intractable G89.4 Chronic pain syndrome K70.30 Alcoholic cirrhosis of liver without ascites E11.9 Type 2 diabetes mellitus without complications G25.81 Restless legs syndrome Office Visit 02/24/2019 9:06a [facility] Assoc,nithya Thomas DO R51 Headache Hospitalists G89.4 Chronic pain syndrome G25.81 Restless legs syndrome Z79.891 retirement (current) use of opiate analgesic Office Visit 02/19/2019 8:30a Wound Care Franny Peng L97.828 Non- prs chronic Center AT [facility] MARGUERITE Alvarado ulcer oth prt l low leg with oth severity L97.818 Non-prs chronic ulcer oth prt r low leg with oth severity E11.622 Type 2 diabetes mellitus with other skin ulcer I87.2 Venous insufficiency (chronic) (peripheral) E66.9 Obesity, unspecified Z68.36 Body mass index (BMI) 36.0-36.9, adult Office Visit 02/18/2019 9:05a [facility] Galina K72.90 Hepatic failure, Assoc,nithya Chaudhry M.D. unspecified Hospitalists without coma E11.9 Type 2 diabetes mellitus without complications G25.81 Restless legs syndrome G89.29 Other chronic pain Assessments Date Code Description Provider 07/17/2019 I33.0 Acute and subacute infective Franny Alvarado NP endocarditis 07/17/2019 M87.052 Idiopathic aseptic necrosis of left Franny Alvarado, DIRECTOR EMERGENCY SERVICES femur 07/17/2019 K70.30 Alcoholic cirrhosis of liver without Franny Alvarado, DIRECTOR EMERGENCY SERVICES ascites 07/17/2019 E11.9 Type 2 diabetes mellitus without Franny Alvarado, DIRECTOR EMERGENCY SERVICES complications 07/15/2019 I33.0 Acute and subacute infective Franny Alvarado, DIRECTOR EMERGENCY SERVICES endocarditis 07/15/2019 M87.052 Idiopathic aseptic necrosis of left Franny Alvarado, DIRECTOR EMERGENCY SERVICES femur 07/15/2019 K70.30 Alcoholic cirrhosis of liver without Franny Alvarado, DIRECTOR EMERGENCY SERVICES ascites 07/15/2019 E11.9 Type 2 diabetes mellitus without Franny Alvarado, DIRECTOR EMERGENCY SERVICES complications 07/12/2019 M25.552 Pain in left hip Amparo Rothman M.D. 07/12/2019 M25.552 Pain in left hip Franny Alvarado, DIRECTOR EMERGENCY SERVICES 07/12/2019 M87.052 Idiopathic aseptic necrosis of left Amparo Rothman M.D. femur 07/12/2019 R78.81 Bacteremia Franny Alvarado, DIRECTOR EMERGENCY SERVICES 07/12/2019 M16.12 Unilateral primary osteoarthritis, Amparo Rothman M.D. 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
--- OUTSIDE RECORDS SUMMARY | 2019-08-04 19:27 | XMS REPORT | Continuity of Care Document ---
:1950 External Reference #:[id number] Author Name Estrada Richmond M.D. (transmitted by agent of provider Cortney Mckinney) Address [address] [place] [id number] Care Team Providers Name Role Phone Justin Suarez MD - Care Team Information Writer Technical Publications [phone] Gastroenterology [facility] - Pain Care Team Information Writer Technical Publications [phone] [facility] W[facility] Care Team Information Writer Technical Publications [phone] Marcelino Murillo - Neurology Care Team Information Writer Technical Publications [phone] Problems Active Problems Provider Date Cirrhosis of [...] po qd Veronica Finnegan. 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 [...] CPT Code Status Date Vaccine Lot # [id number] Given 06/08/2016 Hep B Vaccine Adult, 3 Dose age >20 yrs [id number] 21042 Given 06/08/2016 Hepatitis A, Adult [id number] 55175 Given 02/11/2016 Hep B Vaccine Adult, 3 Dose age >20 yrs [id number] 87507 Given 11/03/2015 Hep B Vaccine Adult, 3 Dose age >20 yrs [id number] 98105 Given 11/03/2015 Prevnar-13 Pneumococcal Conjugate Vaccine [id number] 87105 Given 11/03/2015 Hepatitis A, Adult [id number] 97260 Given 03/04/2015 Influenza Virus Vaccine, Quadrivalent, 3 Yr > [id number] Quad, Preserv Free 75115 Given 04/28/2014 Pneumovax 23 (PPSV23) 65+ years or high risk 2 to 64 year old 69815 Given 12/19/2012 Zoster Vaccine [id number] 43705 Given 05/17/2012 Tdap (Adacel) [id number] 98120 Given 08/08/2000 DT (Adult) [id number] Refused 01/23/2019 Influenza Virus Vaccine, Quadrivalent, 3 Yr > Quad , Preserv Free 32846 Refused 08/08/2017 Influenza Virus Vaccine, Quadrivalent, 3 Yr > Quad , Preserv Free 76316 Refused 06/06/2017 Influenza Virus Vaccine, Quadrivalent, 3 Yr > Quad , Preserv Free 30687 Refused 01/27/2017 [place] [id number] Refused 07/18/2016 Influenza Virus Vaccine, Quadrivalent, 3 Yr > Quad , Preserv Free 85780 Refused 02/16/2012 Influenza Vaccine-Preservative Free 3 Yrs [...] Date Facility Test Result H/L Range Note Laboratory test 07/11/2019 [facility] C Reactive 237.61 High <8.01 finding [phone] Protein mg/L CBC Auto Diff 07/11/2019 [facility] White Blood 11.5 High 3.5-10.8 [phone] Count 10^3/uL Red Blood Count 4.07 10^6/uL Normal 3.70-4.87 [...] Blood Cells % 0.0 Comp Metabolic 07/11/2019 [facility] Sodium 125 mmol/ L Low 135-145 Panel [phone] Potassium 4.0 mmol/L Normal 3.5-5.0 Chloride 97 [...] Non- 118.0 >60 Egfr 142.8 >60 1 Drug Screen 06/13/2019 [facility] Urine None Detected None Detect Urine Pain [phone] Hydrocodone Clinic Screen Urine Oxycodone Screen Presumptive Posi [...] Phencyclidine Screen None Detected None Detect 5 CBC Auto 04/12/2019 [facility] White Blood 4.7 10^3/ uL Normal 3.5-10.8 Diff [phone] Count Red Blood Count 3.99 10^6/uL Normal [...] Blood Cells % 0.3 Comp Metabolic 04/12/2019 [facility] Sodium 134 mmol/ L Low 135-145 Panel [phone] Potassium 3.6 mmol/L Normal 3.5-5.0 Chloride 104 [...] >60 Egfr 125.9 >60 6 CBC Auto 02/24/2019 [facility] White Blood 9.1 10^3/ uL Normal 3.5-10.8 Diff [phone] Count Red Blood Count 4.02 10^6/uL Normal [...] Blood Cells % 0.1 Laboratory test 02/24/2019 [facility] Lactic Acid 1.4 mmol/L Normal 0.5-2.0 7 finding [phone] Ammonia 58 mcmol/L High 16-53 Comp Metabolic 02/24/2019 [facility] Sodium 132 mmol/ L Low 135-145 Panel [phone] Potassium 3.6 mmol/L Normal 3.5-5.0 Chloride 104 [...] Egfr Non- 70.7 >60 Egfr 85.6 >60 8 Alkaline Phosphatase 194 U/L High 34-104 Laboratory test 02/24/2019 [facility] Troponin-I (TnI ) 0.00 ng/mL <0.04 9 finding [phone] Acetaminophen < 15 g/mL 10 Alcohol < 10 mg/dL Normal <10 Salicylate < 2.50 mg/dL <30 Urine Culture And 02/17/2019 [facility] Urine Culture SEE RESULT 11 Sensitivities [phone] BELOW Urinalysis Profile 02/17/2019 [facility] Urine Color Yellow [phone] Urine Appearance Clear Urine Specific Mcnabb 1.012 Normal 1.010-1.030 Urine pH 6.0 Normal [...] Cell Present Abnormal Absent Urine Drug 02/17/2019 [facility] Urine None Detected None Detect SCR ED & [phone] Amphetamine Pain Clinic Screen Urine Barbiturates Screen None Detected None Detect Urine Benzodiazepine Screen None Detected None Detect Urine Cannabinoids Screen None Detected None Detect Urine Opiates Screen None Detected None Detect Urine Phencyclidine Screen None Detected None Detect 12 Urine Cocaine Screen None Detected None Detect Laboratory test 02/17/2019 [facility] Ammonia 86 mcmol/L High 16-53 finding [phone] Inr/Protime 02/17/2019 [facility] Inr 1.41 High 0.82-1.09 13 [phone] Laboratory test 02/17/2019 [facility] Lactic Acid 1.3 mmol/L Normal 0.5-2.0 14 finding [phone] CBC Auto Diff 02/17/2019 [facility] White Blood 6.1 10^3/uL Normal 3.5-10.8 [phone] Count Red Blood Count 3.71 10^6/uL Normal [...] Blood Cells % 0.0 Basic Metabolic 02/04/2019 [facility] Sodium 135 mmol /L Normal 135-145 Panel [phone] Potassium 3.9 mmol/L Normal 3.5-5.0 Chloride 106 [...] 5 Kidney failure <15 (or dialysis) 7 [facility] Severe Sepsis and Septic Shock Management Bundle Measure requires all lactic acids initially measuring >2.0 mmol/L be repeated. 8 Because ethnic data is not always readily [...] 15-29 5 Kidney failure <15 (or dialysis) 9 Troponin-I testing on Plasma Separator Tubes (PST) has a known false positive rate of 0.20-0.40%. All positive troponins reflex immediately to secondary confirmatory testing. Using the [employer] DxI 800 Access Immunoassay systems, the 99th percentile upper reference limit was demonstrated to be < 0.03 ng/mL. 10 Therapeutic concentration: <50 ug/mL Toxic concentration: >120 ug/mL 11 SEE RESULT BELOW Name: ISAIAS SALEH : [address]: Cornelia Montano DO Acct: [id number] Unit: [id number] AGE: 68 Location: [place] [address] Re02/18/19 SEX: F Status: ADM Ana María SPEC: [id number] DENITA: 02/17/19 [facility] [address]: Trish Michaels MD REQ: [id number] RECD: 02/17/19 STATUS: BENNETT MOREIRA DR: Estrada Richmond MD _ SOURCE: URINE SPDESC: ORDERED: Urine Culture Procedure Result Reported Site Urine Culture Final 02/19/19- 0855 ML No Growth (<1,000 CFU/mL) * ML - Main Lab . END OF REPORT DEPARTMENT OF PATHOLOGY, [address] [place] [address] Miguel Angel Michel M.D. Director [facility] # [id number] 12 The urine specimen was tested at the listed cutoffs: Drug class test level (ng/mL) Amphetamines 500 Barbiturates 200 Benzodiazepine metabolites 200 Cocaine metabolites 150 Cannabinoids 50 Opiates 300 Pcp 25 Specimen was received without chain of custody. Results should be used for medical purposes only. 13 Standard intensity warfarin therapeutic range: 2.0-3.0 High intensity warfarin therapeutic range: 2.5-3.[address] [facility] Severe Sepsis and Septic Shock Management Bundle [...] Date Location Provider Dx Diagnosis Office Visit 06/19/2019 Main Office Estrada Richmond [...] Richmond L03.311 Cellulitis of M.D. abdominal wall Assessments Date [...] 01/23/2019 L03.311 Cellulitis of abdominal wall Estrada iRchmond M.D. Plan of Treatment No Information Available Functional Status Functional Condition Comment Date Status Glasses Active Mental Status Description No Information Available Referrals Refer to Reason for Referral Status Appt Date Amparo Rothman REFERRAL TO: Dr. Rothman for avascular necrosis Created diagnosis. PLEASE SEND CONSULT NOTE TO [facility] @ [phone]. [address] [place] [address] [phone] [facility] REFERRAL TO: [facility] for Left Sciatica Created Pain PLEASE CONTACT PT TO SCHEDULE APPT. PLEASE FAX APPOINTMENT DATE/TIME TO [facility] @ [phone]. PLEASE SEND CONSULT NOTE TO [facility] @ [phone]. [address] [place] [address] [phone]
[2019-08-04] MEDS ORDERED: NS 0.9% 1000 ML** 1,000 ML IV ONE (19:31)
[2019-08-04 19:48] LABS: ABS Eosinophils 0.2 10^3/ul (0-0.6); ABS Lymphocytes 0.7 10^3/ul (1.0-4.8); ABS Monocytes 0.5 10^3/ul (0-0.8); ABS Neutrophils 2.6 10^3/ul (1.5-7.7); Eosinophil % 3.8 %; Hematocrit 31 % (35-47); Hemoglobin 10.3 g/dL (12.0-16.0); Lymphocyte % 17.7 %; Mean Corpuscular HGB Conc 33 g/dL (31-36); Mean Corpuscular Hemoglobin 29 pg (27-31); Mean Corpuscular Volume 88 fL (80-97); Mean Platelet Volume 7.4 fL (7.4-10.4); Nucleated Red Blood Cells % 0.2; Platelet Count 179 10^3/uL (150-450); Red Blood Count 3.52 10^6 /uL (3.70-4.87); Red Cell Distribution Width 20 % (10-15); White Blood Count 4.1 10^3/uL (3.5-10.8)
[2019-08-04 20:02] LABS: Albumin 2.8 g/dL (3.2-5.2); Albumin/Globulin Ratio 0.5 (1-3); BUN/Creatinine Ratio 23.2 (8-20); EGFR Non-African American 85.1 (>60); Globulin 5.3 g/dL (2-4); Magnesium 1.7 mg/dL (1.9-2.7); Potassium 3.9 mmol/L (3.5-5.0); Total Bilirubin 0.7 mg/dL (0.2-1.0); Total Protein 8.1 g/dL (6.4-8.9)
[2019-08-04] MEDS ORDERED: Magnesium Sulfate 2 GM IV* 2 GM/50 ML BAG IVPB ONE (20:08)
[2019-08-04] MEDS ORDERED: oxyCODONE TAB* 5 MG TAB PO ONE (20:35)
[2019-08-04] MEDS ORDERED: Baclofen TAB* 10 MG PO ONE (20:36)
--- NOTE | 2019-08-04 20:42 | ED ---
Complex/Multi-Sys Presentation - HPI Summary HPI Summary: 68 y/o female presented to [facility] [place] with tremors up her arms and legs present since earlier today that resolved before getting to the ED. Pt also endorses bilat abd pain rated 7/10 2/2 ascites, dry mouth, mild SOB, difficulty ambulating, and left hip pain that is chronic. Pt has hx ascites and recently had fluids drained; her abdomen is currently distended due to liver cirrhosis per pt. Hx of endocardits, DM, MSSA bacteremia. She was recently discharged from [facility] [place] on cefazolin and if followed by Dr. Alvarez. She also sees Dr. Suarez. Medications reviewed. - History Of Current Complaint Chief Complaint: EDExtremityLower Time Seen by Provider: 08/04/19 19:30 Hx Obtained From: Patient Onset/Duration: Still Present Severity Currently: Moderate Location: Pain At: - abdomen, left hip Associated Signs And Symptoms: Positive: SOB, Other - tremors, resolved; dry MM ; abd distension - Allergies/Home Medications Allergies/Adverse Reactions: Allergies Allergy/AdvReac Type Severity Reaction Status Date / Time morphine Allergy Severe Anaphylatic Verified 08/04/19 19:14 Shock vancomycin Allergy Intermediate Rash And Verified 08/04/19 19:14 Itching lorazepam [From Ativan] Allergy See Comment Verified 08/04/19 19:14 meloxicam Allergy Rash Verified 08/04/19 19:14 Penicillins Allergy Swelling Verified 08/04/19 19:14 sulfamethoxazole Allergy Unknown Verified 08/04/19 19:14 [From Bactrim] Reaction Details trimethoprim [From Bactrim] Allergy Unknown Verified 08/04/19 19:14 Reaction Details acetaminophen [From Tylenol] AdvReac Unknown Verified 08/04/19 19:14 Reaction Details aspirin AdvReac CIRRHOSIS Verified 08/04/19 19:14 erythromycin base AdvReac Vomiting Verified 08/04/19 19:14 NSAIDS (Non-Steroidal AdvReac CIRRHOSIS Verified 08/04/19 19:14 Anti-Inflamma Sulfa (Sulfonamide AdvReac GI Upset Verified 08/04/19 19:14 Antibiotics) Home Medications: Home Medications Potassium Chlor TAB* [Potassium Chlor TAB 20 MEQ*] 20 meq PO TID 07/11/14 [ History Confirmed 08/05/19] Vitamin E CAP* 200 unit PO DAILY 12/23/15 [History Confirmed 08/05/19] Cholecalciferol TAB* [Vitamin D TAB*] 2,000 units PO DAILY 01/10/16 [History Confirmed 08/05/19] Ferrous Sulfate TAB* 325 mg PO BID 02/08/16 [History Confirmed 08/05/19] Alendronate (NF) [Fosamax (NF)] 70 mg PO WEEKLY 06/20/17 [History Confirmed ] Zinc 50 mg PO BID 08/01/17 [History Confirmed 08/05/19] Magnesium Chloride EC TAB* [Slow Mag EC TAB*] 71.5 - 119 mg PO DAILY 02/19/18 [ History Confirmed 08/05/19] Mirtazapine TAB* [Remeron TAB*] 30 mg PO BEDTIME 02/19/18 [History Confirmed ] Ammonium Lactate 12% [Lac-Hydrin 12 %] 1 applic TOPICAL DAILY PRN 12/04/18 [ History Confirmed 08/05/19] C,E,Zinc,Copper 11/Grmrl8c/Lut [Ocuvite Adult 50 Plus Softgel] 1 cap PO DAILY [History Confirmed 08/05/19] Calcium Carbonate [Calcium] 600 mg PO BID 12/04/18 [History Confirmed 08/05/19] Pantoprazole TAB (NF) [Protonix TAB (NF)] 20 mg PO DAILY 12/04/18 [History Confirmed 08/05/19] oxyCODONE TAB* [Roxycodone TAB 5 mg*] 10 mg PO Q4H PRN 12/04/18 [History Confirmed 08/05/19] Baclofen TAB* [Lioresal TAB*] 10 mg PO BID 02/18/19 [History Confirmed 08/05/19] Lactulose* 30 ml PO Q4HR PRN 03/15/19 [History Confirmed 08/05/19] Spironolactone [Aldactone 100 MG-] 100 mg PO DAILY 03/15/19 [History Confirmed 08/05/19] fentaNYL PATCH 25 MCG/HR* [Duragesic PATCH 25 Mcg/Hr*] 25 mcg TRANSDERM Q72H [History Confirmed 08/05/19] Furosemide TAB* [Lasix TAB*] 60 mg PO DAILY 07/11/19 [History Confirmed 08/05/19 ] Rifaximin(NF) [Xifaxan(NF)] 200 mg PO BID 07/11/19 [History Confirmed 08/05/19] Triamcinolone 0.5% CREAM(NF) [Triamcinolone 0.5% CREAM*] 1 applic TOPICAL BID [History Confirmed 08/05/19] Hydrocortisone 2.5% CREAM(NF) 1 applic TOPICAL BID 08/05/19 [History Confirmed 08/05/19] PARoxetine HCL TAB* [Paxil TAB*] 40 mg PO DAILY 08/05/19 [History Confirmed ] PMH/Surg Hx/FS Hx/Imm Hx Endocrine/Hematology History: Reports: Hx Diabetes - BACK TO NORMAL Cardiovascular History: Denies: Hx Hypertension, Hx Pacemaker/ICD, Other Cardiovascular Problems/ Disorders Respiratory History: Denies: Hx Chronic Obstructive Pulmonary Disease (COPD) GI History: Reports: 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, Hx Gastroesophageal Reflux Disease, Other GI Disorders - Esophageal varices History: Denies: Hx Dialysis, Hx Renal Disease Musculoskeletal History: Reports: Hx Arthritis, Hx Back Problems - lumbar fusion in 1990, Hx Orthopedic Injury - 04/18/18: Fx three ribs from a fall, Other Musculoskeletal History - Restless leg syndrome Denies: Hx Osteoporosis Sensory History: Reports: Hx Cataracts - bilat, Hx Contacts or Glasses Denies: Hx Legally Blind, Hx Deafness, Hx Hearing Aid Opthamlomology History: Reports: Hx Cataracts - bilat, Hx Contacts or Glasses Denies: Hx Legally Blind Neurological History: Reports: Hx Transient Ischemic Attacks (TIA), Other Neuro Impairments/Disorders - Hx spinal stenosis Psychiatric History: Reports: Hx Anxiety, Hx Depression Denies: Hx Panic Disorder - Cancer History Hx Chemotherapy: No Hx Radiation Therapy: No - Surgical History Surgery Procedure, Year, and Place: LUMBAR SPINAL FUSION 1990, tonsillectomy. TUBAL LIGATION. WISDOM TEETH. 2014 [facility]. 12/2018 PARTIAL HYSTERECTOMY [facility] Hx Anesthesia Reactions: No Infectious Disease History: Yes Infectious Disease History: Denies: Hx of Known/Suspected MRSA, Traveled Outside the [place] in Last 30 Days - Family History Known Family History: Positive: Diabetes - Mother - Social History Alcohol Use: None Alcohol Amount: hx: alcoholism Hx Substance Use: No Substance Use Type: Reports: None Hx Tobacco Use: Yes - not currently Smoking Status (MU): Former Smoker Type: Cigarettes Amount Used/How Often: 5 CIGS/DAY Length of Time of Smoking/Using Tobacco: 30 years Have You Smoked in the Last Year: Yes Review of Systems Positive: Other - dry MM Positive: Shortness Of Breath Positive: Abdominal Pain - 10/31, Other - abd distension Positive: Other - left hip pain Positive: Other - tremors, resolved All Other Systems Reviewed And Are Negative: Yes Physical Exam - Summary Physical Exam Summary: Constitutional: Chronically ill appearing Skin: Warm, Dry, venous stasis changes of LE HENT: Normocephalic; Atraumatic Eyes: Conjunctiva normal Neck: Musculoskeletal ROM normal neck. (-) JVD, (-) Stridor, (-) Nuchal rigidity Cardio: Rhythm regular, rate normal, Heart sounds normal; Intact distal pulses; Radial pulses are 2+ and symmetric. (-) Murmur Pulmonary/Chest wall: mildly tachypneic. (-) Respiratory distress, (-) Wheezes, (-) Rales Abd: Soft, (+) distended but not tense, mild tenderness, (-) Guarding, (-) Rebound Musculoskeletal: 1+ edema LE, TTP L hip, pain w log roll Lymph: (-) Cervical adenopathy Neuro: Alert, Oriented x3 Psych: Mood and affect Normal Triage Information Reviewed: Yes Vital Signs On Initial Exam: Initial Vitals Temp Pulse Resp BP Pulse Ox 98.3 F 101 15 102/65 94 08/04/19 19:10 08/04/19 19:10 08/04/19 19:10 08/04/19 19:10 08/04/19 19:10 Vital Signs Reviewed: Yes Procedures - Sedation Patient Received Moderate/Deep Sedation with Procedure: No Diagnostics - Vital Signs Vital Signs Temp Pulse Resp BP Pulse Ox 08/04/19 19:59 77/58 08/04/19 19:30 104 91/57 95 08/04/19 19:29 98 95 08/04/19 19:10 98.3 F 101 15 102/65 94 - Laboratory Lab Results: Lab Results 08/04/19 08/04/19 Range/Units 19:37 19:37 WBC 4.1 (3.5-10.8) 10^3/uL RBC 3.52 L (3.70-4.87) 10^6 /uL Hgb 10.3 L (12.0-16.0) g/dL Hct 31 L (35-47) % MCV 88 (80-97) fL MCH 29 (27-31) pg MCHC 33 (31-36) g/dL RDW 20 H (10-15) % Plt Count 179 (150-450) 10^3/uL MPV 7.4 (7.4-10.4) fL Neut % (Auto) 64.2 % Lymph % (Auto) 17.7 % [place] % (Auto) 13.5 % Eos % (Auto) 3.8 % Baso % (Auto) 0.8 % Absolute Neuts (auto) 2.6 (1.5-7.7) 10^3/ul Absolute Lymphs (auto) 0.7 L (1.0-4.8) 10^3/ul Absolute Monos (auto) 0.5 (0-0.8) 10^3/ul Absolute Eos (auto) 0.2 (0-0.6) 10^3/ul Absolute Basos (auto) 0.0 (0-0.2) 10^3/ul Absolute Nucleated RBC 0.0 10^3/ul Nucleated RBC % 0.2 Sodium 131 L (135-145) mmol/L Potassium 3.9 (3.5-5.0) mmol/L Chloride 103 (101-111) mmol/L Carbon Dioxide 23 (22-32) mmol/L Anion Gap 5 (2-11) mmol/L BUN 16 (6-24) mg/dL Creatinine 0.69 (0.51-0.95) mg/dL Est GFR ( Amer) 103.0 (>60) Est GFR (Non-Af Amer) 85.1 (>60) BUN/Creatinine Ratio 23.2 H (8-20) Glucose 83 (70-100) mg/dL Calcium 9.0 (8.6-10.3) mg/dL Magnesium 1.7 L (1.9-2.7) mg/dL Total Bilirubin 0.70 (0.2-1.0) mg/dL AST 40 H (13-39) U/L ALT 6 L (7-52) U/L Alkaline Phosphatase 338 H (34-104) U/L Total Protein 8.1 (6.4-8.9) g/dL Albumin 2.8 L (3.2-5.2) g/dL Globulin 5.3 H (2-4) g/dL Albumin/Globulin Ratio 0.5 L (1-3) Result Diagrams: 08/04/19 19:37 08/04/19 19:37 Lab Statement: Any lab studies that have been ordered have been reviewed, and results considered in the medical decision making process. Complex Multi-Symp Course/Dx Course Of Treatment: 68 y/o F w hx ESLD, cirrhosis, recent bacteremia 2/2 MSSA endocarditis p/w tremors now resolved. - PE chronically ill appearing, abd distended but soft. D/w patient she likely needs paracentesis soon. She will call her GI doctor. Tremors resolved, no asterixis on exam. Mg low at 1.7, given 2g. Given home pain meds. - mild tachypnea 2/2 abd distention. No cough, lungs CTAB. - patient would like to go home, will follow up w her doctors regarding paracentesis, possible inc in diuretics. - Diagnoses Provider Diagnoses: Abdominal distension, Left hip pain, Ascites, Hypomagnesemia, Tremor Discharge ED - Sign-Out/Discharge Documenting (check all that apply): Patient Departure - dc - Discharge Plan Condition: Stable Disposition: HOME Patient Education Materials: Ascites (ED) Referrals: Estrada Richmond MD [Primary Care Provider] - Justin Suarez MD [Medical Doctor] - Additional Instructions: You were seen in the emergency department for tremors. Your magnesium was low which we repleted. Please call your GI doctor tomorrow to schedule another paracentesis. Please follow up with your primary care doctor in next 2-3 days and return to emergency department for shortness of breath, worsening or concerning symptoms. It was a pleasure taking care of you today. - Billing Disposition and Condition Condition: STABLE Disposition: Home - Attestation Statements Document Initiated by Scribe: Yes Documenting Scribe: Chuckie Hamilton Provider For Whom Christ is Documenting (Include Credential): Junaid Funk MD Scribe Attestation: Chuckie Santoro, scribed for Junaid Funk MD on 08/05/19 at 2108. Scribe Documentation Reviewed: Yes Provider Attestation: The documentation as recorded by the scribe, Chuckie Hamilton accurately reflects the service I personally performed and the decisions made by me, Junaid Funk MD Status of Scribe Document: Viewed
[2019-08-04 21:28] VITALS: BP 100/68
== END 2019-08-04 21:15 | disposition home or self-care (01) ==
LOC: ED 19:09
DX: R14.0 Abdominal distension (gaseous) (principal); M25.552 Pain in left hip; R18.8 Other ascites; E83.42 Hypomagnesemia; R25.1 Tremor, unspecified; Z87.891 Personal history of nicotine dependence; R06.02 Shortness of breath; E11.9 Type 2 diabetes mellitus without complications; K21.9 Gastro-esophageal reflux disease without esophagitis; Z86.73 Personal history of transient ischemic attack (TIA), and cerebral infarction without residual deficits; F41.9 Anxiety disorder, unspecified; Z79.899 Other long term (current) drug therapy; Z88.2 Allergy status to sulfonamides; Z88.6 Allergy status to analgesic agent; Z88.8 Allergy status to other drugs, medicaments and biological substances; Z88.0 Allergy status to penicillin; Z86.79 Personal history of other diseases of the circulatory system
CPT/HCPCS: 36415; 80053; 82140; 83735; 85025; 96365; 99283; A9270-GY; J3475

== ENCOUNTER 2019-08-05 08:46 | Emergency (ER) | payer MEDICARE, OTHER ==
--- NOTE | 2019-08-05 09:00 | ED ---
Complex/Multi-Sys Presentation - HPI Summary HPI Summary: This patient is a 68 y/o female presenting to [facility] via EMS c/o tremors in arms and legs today. Patient reports she usually has tremors because her magnesium level is low. She notes she was in the emergency department yesterday for the same, tremors, and was given magnesium. Patient states she was discharged home and was feeling better. This morning patient began to experience tremors again. Denies any other symptoms. Denies fever, chest pain, shortness of breath. Home Medications Medication Instructions Recorded Confirmed Type RX: Potassium Chlor TAB* 20 meq PO TID 07/11/14 08/05/19 History [Potassium Chlor TAB 20 MEQ*] RX: Vitamin E CAP* 200 unit PO DAILY 12/23/15 08/05/19 History RX: Cholecalciferol TAB* [Vitamin 2,000 units PO DAILY 01/10/16 08/05/19 History D TAB*] RX: Ferrous Sulfate TAB* 325 mg PO BID 02/08/16 08/05/19 History RX: Alendronate (NF) [Fosamax (NF)] 70 mg PO WEEKLY 06/20/17 08/05/19 History RX: Zinc 50 mg PO BID 08/01/17 08/05/19 History RX: Magnesium Chloride EC TAB* 71.5 - 119 mg PO DAILY 02/19/18 08/05/19 History [Slow Mag EC TAB*] RX: Mirtazapine TAB* [Remeron TAB*] 30 mg PO BEDTIME 02/19/18 08/05/19 History RX: Ammonium Lactate 12% 1 applic TOPICAL DAILY PRN 12/04/18 08/05/19 History [Lac-Hydrin 12 %] RX: C,E,Zinc,Copper 11/Brcjk6d/Lut 1 cap PO DAILY 12/04/18 08/05/19 History [Ocuvite Adult 50 Plus Softgel] RX: Calcium Carbonate [Calcium] 600 mg PO BID 12/04/18 08/05/19 History RX: Pantoprazole TAB (NF) 20 mg PO DAILY 12/04/18 08/05/19 History [Protonix TAB (NF)] RX: oxyCODONE TAB* [Roxycodone TAB 10 mg PO Q4H PRN 12/04/18 08/05/19 History 5 mg*] RX: Baclofen TAB* [Lioresal TAB*] 10 mg PO BID 02/18/19 08/05/19 History RX: Lactulose* 30 ml PO Q4HR PRN 03/15/19 08/05/19 History RX: Spironolactone [Aldactone 100 100 mg PO DAILY 03/15/19 08/05/19 History MG-] RX: fentaNYL PATCH 25 MCG/HR* 25 mcg TRANSDERM Q72H 04/12/19 08/05/19 History [Duragesic PATCH 25 Mcg/Hr*] RX: Furosemide TAB* [Lasix TAB*] 60 mg PO DAILY 07/11/19 08/05/19 History RX: Rifaximin(NF) [Xifaxan(NF)] 200 mg PO BID 07/11/19 08/05/19 History RX: Triamcinolone 0.5% CREAM(NF) 1 applic TOPICAL BID 07/11/19 08/05/19 History [Triamcinolone 0.5% CREAM*] PARoxetine HCL TAB* [Paxil TAB*] 40 mg PO DAILY 08/05/19 08/05/19 History RX: Hydrocortisone 2.5% CREAM(NF) 1 applic TOPICAL BID 08/05/19 08/05/19 History - History Of Current Complaint Time Seen by Provider: 08/05/19 08:49 Hx Obtained From: Patient Onset/Duration: Lasting Hours, Still Present Timing: Hours Severity Currently: Moderate Aggravating Factor(s): nothing Alleviating Factor(s): nothing Associated Signs And Symptoms: Positive: Other - POSITIVE: tremors. Negative: SOB, Chest Pain, Fever - Allergies/Home Medications Allergies/Adverse Reactions: Allergies Allergy/AdvReac Type Severity Reaction Status Date / Time morphine Allergy Severe Anaphylatic Verified 08/04/19 19:14 Shock vancomycin Allergy Intermediate Rash And Verified 08/04/19 19:14 Itching lorazepam [From Ativan] Allergy See Comment Verified 08/04/19 19:14 meloxicam Allergy Rash Verified 08/04/19 19:14 Penicillins Allergy Swelling Verified 08/04/19 19:14 sulfamethoxazole Allergy Unknown Verified 08/04/19 19:14 [From Bactrim] Reaction Details trimethoprim [From Bactrim] Allergy Unknown Verified 08/04/19 19:14 Reaction Details acetaminophen [From Tylenol] AdvReac Unknown Verified 08/04/19 19:14 Reaction Details aspirin AdvReac CIRRHOSIS Verified 08/04/19 19:14 erythromycin base AdvReac Vomiting Verified 08/04/19 19:14 NSAIDS (Non-Steroidal AdvReac CIRRHOSIS Verified 08/04/19 19:14 Anti-Inflamma Sulfa (Sulfonamide AdvReac GI Upset Verified 08/04/19 19:14 Antibiotics) Home Medications: Home Medications Potassium Chlor TAB* [Potassium Chlor TAB 20 MEQ*] 20 meq PO TID 07/11/14 [ History Confirmed 08/05/19] Vitamin E CAP* 200 unit PO DAILY 12/23/15 [History Confirmed 08/05/19] Cholecalciferol TAB* [Vitamin D TAB*] 2,000 units PO DAILY 01/10/16 [History Confirmed 08/05/19] Ferrous Sulfate TAB* 325 mg PO BID 02/08/16 [History Confirmed 08/05/19] Alendronate (NF) [Fosamax (NF)] 70 mg PO WEEKLY 06/20/17 [History Confirmed ] Zinc 50 mg PO BID 08/01/17 [History Confirmed 08/05/19] Magnesium Chloride EC TAB* [Slow Mag EC TAB*] 71.5 - 119 mg PO DAILY 02/19/18 [ History Confirmed 08/05/19] Mirtazapine TAB* [Remeron TAB*] 30 mg PO BEDTIME 02/19/18 [History Confirmed ] Ammonium Lactate 12% [Lac-Hydrin 12 %] 1 applic TOPICAL DAILY PRN 12/04/18 [ History Confirmed 08/05/19] C,E,Zinc,Copper 11/Hwpph4f/Lut [Ocuvite Adult 50 Plus Softgel] 1 cap PO DAILY [History Confirmed 08/05/19] Calcium Carbonate [Calcium] 600 mg PO BID 12/04/18 [History Confirmed 08/05/19] Pantoprazole TAB (NF) [Protonix TAB (NF)] 20 mg PO DAILY 12/04/18 [History Confirmed 08/05/19] oxyCODONE TAB* [Roxycodone TAB 5 mg*] 10 mg PO Q4H PRN 12/04/18 [History Confirmed 08/05/19] Baclofen TAB* [Lioresal TAB*] 10 mg PO BID 02/18/19 [History Confirmed 08/05/19] Lactulose* 30 ml PO Q4HR PRN 03/15/19 [History Confirmed 08/05/19] Spironolactone [Aldactone 100 MG-] 100 mg PO DAILY 03/15/19 [History Confirmed 08/05/19] fentaNYL PATCH 25 MCG/HR* [Duragesic PATCH 25 Mcg/Hr*] 25 mcg TRANSDERM Q72H [History Confirmed 08/05/19] Furosemide TAB* [Lasix TAB*] 60 mg PO DAILY 07/11/19 [History Confirmed 08/05/19 ] Rifaximin(NF) [Xifaxan(NF)] 200 mg PO BID 07/11/19 [History Confirmed 08/05/19] Triamcinolone 0.5% CREAM(NF) [Triamcinolone 0.5% CREAM*] 1 applic TOPICAL BID [History Confirmed 08/05/19] Hydrocortisone 2.5% CREAM(NF) 1 applic TOPICAL BID 08/05/19 [History Confirmed 08/05/19] PARoxetine HCL TAB* [Paxil TAB*] 40 mg PO DAILY 08/05/19 [History Confirmed ] PMH/Surg Hx/FS Hx/Imm Hx Endocrine/Hematology History: Reports: Hx Diabetes - BACK TO NORMAL Cardiovascular History: Denies: Hx Hypertension, Hx Pacemaker/ICD, Other Cardiovascular Problems/ Disorders Respiratory History: Denies: Hx Chronic Obstructive Pulmonary Disease (COPD) GI History: Reports: 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, Hx Gastroesophageal Reflux Disease, Other GI Disorders - Esophageal varices History: Denies: Hx Dialysis, Hx Renal Disease Musculoskeletal History: Reports: Hx Arthritis, Hx Back Problems - lumbar fusion in 1990, Hx Orthopedic Injury - 04/18/18: Fx three ribs from a fall, Other Musculoskeletal History - Restless leg syndrome Denies: Hx Osteoporosis Sensory History: Reports: Hx Cataracts - bilat, Hx Contacts or Glasses Denies: Hx Legally Blind, Hx Deafness, Hx Hearing Aid Opthamlomology History: Reports: Hx Cataracts - bilat, Hx Contacts or Glasses Denies: Hx Legally Blind Neurological History: Reports: Hx Transient Ischemic Attacks (TIA), Other Neuro Impairments/Disorders - Hx spinal stenosis Psychiatric History: Reports: Hx Anxiety, Hx Depression Denies: Hx Panic Disorder - Cancer History Hx Chemotherapy: No Hx Radiation Therapy: No - Surgical History Surgical History: Yes Surgery Procedure, Year, and Place: LUMBAR SPINAL FUSION 1990, tonsillectomy. TUBAL LIGATION. WISDOM TEETH. 2014 [facility]. 12/2018 PARTIAL [facility]STERECTOMY [facility] Hx Anesthesia Reactions: No Infectious Disease History: Yes Infectious Disease History: Denies: Hx of Known/Suspected MRSA, Traveled Outside the [place] in Last 30 Days - Family History Known Family History: Positive: Diabetes - Mother - Social History Alcohol Use: None Alcohol Amount: hx: alcoholism Hx Substance Use: No Substance Use Type: Reports: None Hx Tobacco Use: Yes - not currently Smoking Status (MU): Former Smoker Type: Cigarettes Amount Used/How Often: 5 CIGS/DAY Length of Time of Smoking/Using Tobacco: 30 years Have You Smoked in the Last Year: Yes Review of Systems Positive: Fever Negative: Chest Pain Negative: Shortness Of Breath Neurological/Mental Status: Other - POSITIVE: tremors All Other Systems Reviewed And Are Negative: Yes Physical Exam - Summary Physical Exam Summary: VITAL SIGNS: Reviewed. GENERAL: Patient is a well-developed and nourished female who is lying comfortable in the stretcher. Patient is not in any acute respiratory distress. HEAD AND FACE: No signs of trauma. No ecchymosis, hematomas or skull depressions. No sinus tenderness. EYES: PERRLA, EOMI x 2, No injected conjunctiva, no nystagmus. EARS: Hearing grossly intact. Ear canals and tympanic membranes are within normal limits. MOUTH: Oropharynx within normal limits. NECK: Supple, trachea is midline, no adenopathy, no JVD, no carotid bruit, no c- spine tenderness, neck with full ROM. CHEST: Symmetric, no tenderness at palpation LUNGS: Clear to auscultation bilaterally. No wheezing or crackles. CVS: Regular rate and rhythm, S1 and S2 present, no murmurs or gallops appreciated. ABDOMEN: Soft, non-tender. No signs of distention. No rebound no guarding, and no masses palpated. Bowel sounds are normal. EXTREMITIES: Decreased ROM on left hip secondary to chronic arthritis. NEURO: Alert and oriented x 3. No acute neurological deficits. Speech is normal and follows commands. SKIN: Dry and warm Triage Information Reviewed: Yes Vital Signs On Initial Exam: Initial Vitals Temp Pulse Resp BP Pulse Ox 97.9 F 98 18 116/73 93 08/05/19 08:51 08/05/19 08:51 08/05/19 08:51 08/05/19 08:51 08/05/19 08:51 Vital Signs Reviewed: Yes Procedures - Sedation Patient Received Moderate/Deep Sedation with Procedure: No Diagnostics - Vital Signs Vital Signs Temp Pulse Resp BP Pulse Ox 08/05/19 08:51 97.9 F 98 18 116/73 93 - Laboratory Result Diagrams: 08/05/19 10:01 08/05/19 10:01 Lab Statement: Any lab studies that have been ordered have been reviewed, and results considered in the medical decision making process. Complex Multi-Symp Course/Dx Assessment/Plan: This patient is a 68 y/o female presenting to [facility] via EMS c/ o tremors in arms and legs today. Patient reports she usually has tremors because her magnesium level is low. She notes she was in the emergency department yesterday for the same, tremors, and was given magnesium. Patient states she was discharged home and was feeling better. This morning patient began to experience tremors again. Denies any other symptoms. Denies fever, chest pain, shortness of breath. In the ED course the patient was placed in a rn cardiac, IV access was obtained. Past medical records reviewed. Blood test w/o a significant abnormality except for hemoglobin of 10.3, hematocrit 31 , sodium 133, alkaline phosphatase 312. Magnesium level is 2 which is normal. In the ED course the patient was given oxycodone for her chronic pain. At this point the patient does not have any tremors, therefore she will be discharged home with follow-up from her family care physician in 2-3 days. Patient is hemodynamically stable, alert and oriented x3. - Diagnoses Provider Diagnoses: Tremor Discharge ED - Sign-Out/Discharge Documenting (check all that apply): Patient Departure - Discharge home - Discharge Plan Condition: Stable Disposition: HOME Patient Education Materials: Tremors (ED) Referrals: Estrada Richmond MD [Primary Care Provider] - Additional Instructions: FOLLOW UP WITH YOUR PRIMARY CARE PROVIDER IN 2-3 DAYS. RETURN TO THE EMERGENCY DEPARTMENT FOR ANY WORSENING OR NEW SYMPTOMS. - Billing Disposition and Condition Condition: STABLE Disposition: Home - Attestation Statements Document Initiated by Scribe: Yes Documenting Scribe: Dulce Maria Barton Provider For Whom Scribe is Documenting (Include Credential): Franc Pinto MD Scribe Attestation: I, Dulce Maria Barton, scribed for Franc Pinto MD on 08/05/19 at 1739. Scribe Documentation Reviewed: Yes Provider Attestation: The documentation as recorded by the Dulce Maria senior accurately reflects the service I personally performed and the decisions made by me, Franc Pinto MD Status of Scribe Document: Viewed
[2019-08-05 10:08] LABS: ABS Eosinophils 0.1 10^3/ul (0-0.6); ABS Lymphocytes 0.6 10^3/ul (1.0-4.8); ABS Monocytes 0.6 10^3/ul (0-0.8); ABS Neutrophils 2.9 10^3/ul (1.5-7.7); Hematocrit 31 % (35-47); Hemoglobin 10.3 g/dL (12.0-16.0); Lymphocyte % 14.2 %; Mean Corpuscular HGB Conc 34 g/dL (31-36); Mean Corpuscular Hemoglobin 30 pg (27-31); Mean Corpuscular Volume 88 fL (80-97); Mean Platelet Volume 7.3 fL (7.4-10.4); Platelet Count 163 10^3/uL (150-450); Red Cell Distribution Width 20 % (10-15); White Blood Count 4.2 10^3/uL (3.5-10.8)
[2019-08-05] MEDS ORDERED: oxyCODONE TAB* 5 MG TAB PO ONE ×2 (10:21→10:44)
[2019-08-05 10:29] LABS: Albumin 2.7 g/dL (3.2-5.2); Albumin/Globulin Ratio 0.5 (1-3); BUN/Creatinine Ratio 24.6 (8-20); Calcium 8.7 mg/dL (8.6-10.3); EGFR African American 110.3 (>60); EGFR Non-African American 91.2 (>60); Potassium 3.7 mmol/L (3.5-5.0); Total Bilirubin 0.7 mg/dL (0.2-1.0); Total Protein 7.7 g/dL (6.4-8.9)
[2019-08-05 12:32] VITALS: BP 122/70
[2019-08-05 12:48] LABS: C Reactive Protein 63.08 mg/L (<8.01)
== END 2019-08-05 12:00 | disposition home or self-care (01) ==
LOC: ED 08:46
DX: R25.1 Tremor, unspecified (principal); R50.9 Fever, unspecified; Z87.891 Personal history of nicotine dependence; E11.9 Type 2 diabetes mellitus without complications; Z79.899 Other long term (current) drug therapy; K21.9 Gastro-esophageal reflux disease without esophagitis; Z86.73 Personal history of transient ischemic attack (TIA), and cerebral infarction without residual deficits; F41.9 Anxiety disorder, unspecified; F32.9 Major depressive disorder, single episode, unspecified; Z88.2 Allergy status to sulfonamides; Z88.6 Allergy status to analgesic agent; Z88.0 Allergy status to penicillin; Z88.8 Allergy status to other drugs, medicaments and biological substances
CPT/HCPCS: 36415; 80053; 83735; 85025; 86140; 99282; A9270-GY

== ENCOUNTER 2019-08-13 11:04 | Observation (INO) | payer MEDICARE, OTHER ==
--- NOTE | 2019-08-13 11:10 | ED ---
Complex/Multi-Sys Presentation - HPI Summary HPI Summary: 68 y/o F brought in by EMS c/o cramping and tremors in her left hip radiating down into her left lower extremity starting earlier today. She has hx of similar. She reports worsening symptoms in the past several weeks. She was seen here 08/03 for similar. Usually takes oxycodone 10 mg, last taken 1000 today. Home medications are not helping. Nothing is helping. Hx ascites. Recently had fluids drained. Hx liver cirrhosis, endocardits, DM, MSSA bacteremia. She is followed by Dr. Hernandez, Dr. Suarez, Dr. Richmond. Medications reviewed. Allergies noted. - History Of Current Complaint Time Seen by Provider: 08/13/19 11:07 Hx Obtained From: Patient, Medical Records Onset/Duration: Lasting Hours, Still Present Timing: Constant Severity Currently: Severe - 12/01 Aggravating Factor(s): Nothing Alleviating Factor(s): Nothing - Allergies/Home Medications Allergies/Adverse Reactions: Allergies Allergy/AdvReac Type Severity Reaction Status Date / Time morphine Allergy Severe Anaphylatic Verified 08/13/19 11:16 Shock vancomycin Allergy Intermediate Rash And Verified 08/13/19 11:16 Itching lorazepam [From Ativan] Allergy See Comment Verified 08/13/19 11:16 meloxicam Allergy Rash Verified 08/13/19 11:16 Penicillins Allergy Swelling Verified 08/13/19 11:16 sulfamethoxazole Allergy Unknown Verified 08/13/19 11:16 [From Bactrim] Reaction Details trimethoprim [From Bactrim] Allergy Unknown Verified 08/13/19 11:16 Reaction Details acetaminophen [From Tylenol] AdvReac Unknown Verified 08/13/19 11:16 Reaction Details aspirin AdvReac CIRRHOSIS Verified 08/13/19 11:16 erythromycin base AdvReac Vomiting Verified 08/13/19 11:16 NSAIDS (Non-Steroidal AdvReac CIRRHOSIS Verified 08/13/19 11:16 Anti-Inflamma Sulfa (Sulfonamide AdvReac GI Upset Verified 08/13/19 11:16 Antibiotics) Home Medications: Home Medications Potassium Chlor TAB* [Potassium Chlor TAB 20 MEQ*] 20 meq PO TID 07/11/14 [ History Confirmed 08/13/19] Vitamin E CAP* 200 unit PO DAILY 12/23/15 [History Confirmed 08/13/19] Cholecalciferol TAB* [Vitamin D TAB*] 2,000 units PO DAILY 01/10/16 [History Confirmed 08/13/19] Ferrous Sulfate TAB* 325 mg PO BID 02/08/16 [History Confirmed 08/13/19] Alendronate (NF) [Fosamax (NF)] 70 mg PO WEEKLY 06/20/17 [History Confirmed ] Zinc 50 mg PO BID 08/01/17 [History Confirmed 08/13/19] Magnesium Chloride EC TAB* [Slow Mag EC TAB*] 71.5 - 119 mg PO DAILY 02/19/18 [ History Confirmed 08/13/19] Mirtazapine TAB* [Remeron TAB*] 30 mg PO BEDTIME 02/19/18 [History Confirmed ] Ammonium Lactate 12% [Lac-Hydrin 12 %] 1 applic TOPICAL DAILY PRN 12/04/18 [ History Confirmed 08/13/19] C,E,Zinc,Copper 11/Jcqtw9m/Lut [Ocuvite Adult 50 Plus Softgel] 1 cap PO DAILY [History Confirmed 08/13/19] Calcium Carbonate [Calcium] 600 mg PO BID 12/04/18 [History Confirmed 08/13/19] Pantoprazole TAB (NF) [Protonix TAB (NF)] 20 mg PO DAILY 12/04/18 [History Confirmed 08/13/19] oxyCODONE TAB* [Roxycodone TAB 5 mg*] 10 mg PO Q4H PRN 12/04/18 [History Confirmed 08/13/19] Baclofen TAB* [Lioresal TAB*] 10 mg PO BID 02/18/19 [History Confirmed 08/13/19] Lactulose* 30 ml PO Q4HR PRN 03/15/19 [History Confirmed 08/13/19] Spironolactone [Aldactone 100 MG-] 100 mg PO DAILY 03/15/19 [History Confirmed 08/13/19] fentaNYL PATCH 25 MCG/HR* [Duragesic PATCH 25 Mcg/Hr*] 25 mcg TRANSDERM Q72H [History Confirmed 08/13/19] Furosemide TAB* [Lasix TAB*] 60 mg PO DAILY 07/11/19 [History Confirmed 08/13/19 ] Rifaximin(NF) [Xifaxan(NF)] 200 mg PO BID 07/11/19 [History Confirmed 08/13/19] Triamcinolone 0.5% CREAM(NF) [Triamcinolone 0.5% CREAM*] 1 applic TOPICAL BID [History Confirmed 08/13/19] Hydrocortisone 2.5% CREAM(NF) 1 applic TOPICAL BID 08/05/19 [History Confirmed 08/13/19] PARoxetine HCL TAB* [Paxil TAB*] 40 mg PO DAILY 08/05/19 [History Confirmed ] Gabapentin CAP(*) [Neurontin 100 mg CAP(*)] 100 mg PO TID 30 Days #90 cap [Rx] PMH/Surg Hx/FS Hx/Imm Hx Endocrine/Hematology History: Reports: Hx Diabetes - BACK TO NORMAL Cardiovascular History: Denies: Hx Hypertension, Hx Pacemaker/ICD, Other Cardiovascular Problems/ Disorders Respiratory History: Denies: Hx Chronic Obstructive Pulmonary Disease (COPD) GI History: Reports: 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, Hx Gastroesophageal Reflux Disease, Other GI Disorders - Esophageal varices History: Musculoskeletal History: Reports: Hx Arthritis, Hx Back Problems - lumbar fusion in 1990, Hx Orthopedic Injury - 04/18/18: Fx three ribs from a fall, Other Musculoskeletal History - Restless leg syndrome Sensory History: Reports: Hx Cataracts - bilat, Hx Contacts or Glasses Opthamlomology History: Reports: Hx Cataracts - bilat, Hx Contacts or Glasses Neurological History: Reports: Hx Transient Ischemic Attacks (TIA), Other Neuro Impairments/Disorders - Hx spinal stenosis Psychiatric History: Reports: Hx Anxiety, Hx Depression - Cancer History Hx Chemotherapy: No Hx Radiation Therapy: No - Surgical History Surgical History: Yes Surgery Procedure, Year, and Place: LUMBAR SPINAL FUSION 1990, tonsillectomy. TUBAL LIGATION. WISDOM TEETH. 2014 [facility]. 12/2018 PARTIAL HYSTERECTOMY [facility] Hx Anesthesia Reactions: No Infectious Disease History: Denies: Hx of Known/Suspected MRSA - Family History Known Family History: Positive: Diabetes - Mother - Social History Alcohol Use: None Alcohol Amount: hx: alcoholism Hx Substance Use: No Substance Use Type: Reports: None Hx Tobacco Use: Yes - not currently Smoking Status (MU): Former Smoker Type: Cigarettes Amount Used/How Often: 5 CIGS/DAY Length of Time of Smoking/Using Tobacco: 30 years Have You Smoked in the Last Year: Yes Review of Systems Negative: Fever Positive: Other - cramping and tremors in her left hip radiating down into her left lower extremity All Other Systems Reviewed And Are Negative: Yes Physical Exam - Summary Physical Exam Summary: Constitutional: Chronically ill appearing Skin: Warm, Dry, venous stasis changes of LE HENT: Normocephalic; Atraumatic Eyes: Conjunctiva normal Neck: Musculoskeletal ROM normal neck. (-) JVD, (-) Stridor, (-) Nuchal rigidity Cardio: Rhythm regular, rate normal, Heart sounds normal; Intact distal pulses; Radial pulses are 2+ and symmetric. (-) Murmur Pulmonary/Chest wall: mildly tachypneic. (-) Respiratory distress, (-) Wheezes, (-) Rales Abd: Soft, (+) distended but not tense, mild tenderness, (-) Guarding, (-) Rebound Musculoskeletal: 1+ edema LE, TTP L hip Lymph: (-) Cervical adenopathy Neuro: Alert, Oriented x3. GCS 15. Psych: Mood and affect Normal Triage Information Reviewed: Yes Vital Signs Reviewed: Yes Procedures - Sedation Patient Received Moderate/Deep Sedation with Procedure: No Diagnostics - Laboratory Result Diagrams: 08/13/19 12:51 08/13/19 12:51 Lab Statement: Any lab studies that have been ordered have been reviewed, and results considered in the medical decision making process. Re-Evaluation - Re-Evaluation First Eval Re-Evaluation Time: 12:59 - update given to daughter Deonna who is concerned about patient at home. She has been very confused at night. Sister (Keri) cashier greeter and unable to safely take care of her. Would like to d/w SW regarding rehab/NH Second Eval Re-Evaluation Time: 13:25 - Patients family would like NH placement. D/w Daija who is working to get her into [facility] tomorrow. Will admit to hospitalist for placement. CT head ordered given hx falls. Complex Multi-Symp Course/Dx Course Of Treatment: 68 y/o F w hx liver disease c/b ascites, L hip avascular necrosis, recent bactermia on abx p/w L hip spasms/pain. - PE chronically ill, L hip w/o erythema, no obvious spasms on exam. Patient has hx restless leg syndrome and has been on ropinirole as well as gabapentin. D/w PCP will try gabapentin. check electrolytes. - Diagnoses Provider Diagnoses: Leg pain, Falls - Physician Notifications Discussed Care Of Patient With: Estrada Richmond - Recommends gabapentin. 1500 Dr. Villar accepts the patient. Time Discussed With Above Provider: 11:40 - Critical Care Time Critical Care Statement: Critical care time is provided exclusive of any time spent performing procedures. Discharge ED - Sign-Out/Discharge Documenting (check all that apply): Patient Departure - Discharge Plan Condition: Stable Disposition: ADMITTED TO [facility] Prescriptions: Gabapentin CAP(*) [Neurontin 100 mg CAP(*)] 100 mg PO TID 30 Days #90 cap Patient Education Materials: Leg Cramps (ED) Referrals: Estrada Richmond MD [Primary Care Provider] - Additional Instructions: You were seen in ER for leg cramping. We talked with your doctor who recommends gabapentin 100 three times a day. This is a very low dose. We also discussed with our social media analyst, Daija about possible placement for rehab at [facility]. This should be arranged tomorrow. Please return for any worsening symptoms and follow up with your primary care doctor. It was a pleasure taking care of you today. - Billing Disposition and Condition Condition: STABLE Disposition: Admitted to [facility] - Attestation Statements Document Initiated by Christ: Yes Documenting Scribe: Mary Ann Leos Provider For Whom Christ is Documenting (Include Credential): Junaid Funk MD Scribe Attestation: I, Mary Ann Leos, scribed for Junaid Funk MD on 08/13/19 at 1509. Scribe Documentation Reviewed: Yes Provider Attestation: The documentation as recorded by the Mary Ann senior accurately reflects the service I personally performed and the decisions made by me, Junaid Funk MD Status of Scribmatilde Document: Viewed
[2019-08-13] MEDS ORDERED: Cyclobenzaprine TAB* 10 MG PO ONE (11:30)
[2019-08-13] MEDS ORDERED: Gabapentin CAP(*) 100 MG PO ONE (11:42)
--- OUTSIDE RECORDS SUMMARY | 2019-08-13 12:02 | XMS REPORT | Continuity of Care Document ---
:1950 External Reference #:[id number] Author Name Franny Alvarado NP (transmitted by agent of provider Merced Taylor) Address [address] [place] [id number] Care Team Providers Name Role Phone Estrada Richmond M.D. 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 Problems Active Problems Provider Date Lumbar radiculopathy [...] Medications SIG Qnty Indications Ordering Provider Date Hydrocortisone Apply twice daily Franny Quevedoaminah 08/07/2019 2.5% to the affected MARGUERITE Alvarado Lotion area Oxygen Patient would like 1unmiko [place] 02/27/2019 [facility] to discontinue MARGUERITE Chong supplemental oxygen against medical advice Triamcinolone Apply topically Unknown Acetonide twice daily 0.5% Cream Paroxetine HCL Take 1 tablet by Unknown 40mg mouth daily Tablets Ammonium Lactate Apply to legs Unknown 12% daily as needed Cream Ferrous Sulfate Take 1 tablet by Unknown mouth bid 325(65Fe) mg Tablets Slow-Mag Take 1 tablet by Unknown 71.5-119mg mouth daily Tablets DR Iraheta Adult 50+ Take 1 capsule by Unknown mouth daily Capsules Furosemide Take 60 mg (1 1/2 Unknown 40mg tabs) by mouth Tablets every day Xifaxan 1 tablets two Unknown 200mg Tablets times a day Cefazolin Sodium 2gm iv every 8 hrs Unknown through [employer] 2GM/20ML Soln Prefill Syringe Baclofen 1 tab bid Hernandez, 10mg Tablets MAYNOR Bowman Vitamin E 1 po qd Unknown 200Unit Capsules Alendronate Sodium take 1 tablet by Unknown mouth every week 70mg Tablets Vitamin D3 1 by mouth every Unknown 2000Unit day Tablets Fentanyl apply one patch 10units Unknown 25mcg/HR once every 3 days Patches 72HR Calcium 600 Take 1 tablet by Unknown 600mg mouth twice daily Tablets Zinc Gluconate 1 by mouth bid Unknown 50mg every day Tablets Klor-Con M20 1 by mouth three Unknown 20Meq times daily Tablets ER Pantoprazole Sodium 1 tab po daily Estrada Richmond M.D. 20mg Tablets Oxycodone HCL 1 tab po every 4-6 Estrada Richmond M.D. 10mg hrs as needed for Tablets pain Spironolactone Take 1 tablet by Estrada Richmond M.D. 100mg mouth every day Tablets Mirtazapine take 1 tab at Estrada Richmond M.D. 30mg bedtime Tablets Lactulose Take 30 ml by Estrada Richmond M.D. 10GM/15ML mouth every 4 Solution hours as needed, titrate to 2-3 BMs per day Medications Administered in Office Medication SIG Qnty [...] BMI (Body Mass Index) 36.6 kg/m2 Results Test Acquired Date Facility Test Result H/L Range Note Comp Metabolic 08/05/2019 [facility] Sodium 133 mmol/L Low 135 -145 Panel [address] [place] [address] [phone] Potassium 3.7 mmol/L Normal 3.5-5.0 Chloride 102 mmol/L Normal 101-111 Co2 Carbon Dioxide 23 mmol/L Normal 22-32 Anion Gap 8 mmol/L Normal 2-11 Glucose 86 mg/dL Normal 70-100 Blood Urea Nitrogen 16 mg/dL Normal 6-24 Creatinine 0.65 mg/dL Normal 0.51-0.95 BUN/Creatinine Ratio 24.6 High 8-20 Calcium 8.7 mg/dL Normal 8.6-10.3 Total Protein 7.7 g/dL Normal 6.4-8.9 Albumin 2.7 g/dL Low 3.2-5.2 Globulin 5.0 g/dL High 2-4 Albumin/Globulin Ratio 0.5 Low 1-3 Total Bilirubin 0.70 mg/dL Normal 0.2-1.0 Alkaline Phosphatase 312 U/L High 34-104 Alt 6 U/L Low 7-52 Ast 35 U/L Normal 13-39 Egfr Non- 91.2 >60 Egfr 110.3 >60 1 Laboratory test 08/05/2019 [facility] Magnesium 2.0 mg/dL Normal 1.9-2.[address] [place] [address] [phone] C Reactive Protein 63.08 mg/L High <8.01 CBC Auto 08/05/2019 [facility] White Blood 4.2 10^3/uL Normal 3.5-10.[address] [place] [address] [phone] Red Blood Count 3.50 10^6/uL Low 3.70-4.87 Hemoglobin 10.3 g/dL Low 12.0-16.0 Hematocrit 31 % Low 35-47 Mean Corpuscular Volume 88 fL Normal 80-97 Mean Corpuscular Hemoglobin 30 pg Normal 27-31 Mean Corpuscular HGB Conc 34 g/dL Normal 31-36 Red Cell Distribution Width 20 % High 10-15 Platelet Count 163 10^3/uL Normal 150-450 Mean Platelet Volume 7.3 fL Low 7.4-10.4 Abs Neutrophils 2.9 10^3/uL Normal 1.5-7.7 Abs Lymphocytes 0.6 10^3/uL Low 1.0-4.8 Abs Monocytes 0.6 10^3/uL Normal 0-0.8 Abs Eosinophils 0.1 10^3/uL Normal 0-0.6 Abs Basophils 0.0 10^3/uL Normal 0-0.2 Abs Nucleated RBC 0.0 10^3/uL Granulocyte % 69.0 % Lymphocyte % 14.2 % Monocyte % 13.0 % Eosinophil % 3.0 % Basophil % 0.8 % Nucleated Red Blood Cells % 0.0 1 Because ethnic data is not always [...] (or dialysis) Procedures Date Code Description Status 07/14/2019 57494 EKG, Interpretation Only Completed 07/12/2019 61770 ECHO Transthorasic Realtime 2D W Doppler & Color Flow Hosp Completed Medical Devices Description No Information Available Encounters Type Date Location Provider Dx Diagnosis Office Visit 08/07/2019 [facility] I33.0 Acute and subacute 1:30p Infectious MARGUERITE Alvarado infective Diseases endocarditis B95.61 Methicillin suscep staph infct causing dis classd elswhr M25.552 Pain in left hip Z79.2 filling separator (current) use of antibiotics K70.31 Alcoholic cirrhosis of liver with ascites [facility] I[facility]9 Rheumatic mitral Assocnithya MD valve disease, Hospitalists unspecified R21 Rash and other nonspecific skin eruption F41.8 Other specified anxiety disorders Office Visit 07/17/2019 [facility] I33.0 Acute and subacute 8:48a For Toney Alvarado NP infective Diseases endocarditis 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 K70.30 Alcoholic cirrhosis of liver without ascites E11.9 Type 2 diabetes mellitus without complications Office Visit 07/17/2019 10:[facility]a [facility] I05.9 Rheumatic mitral Assocnithya MD valve disease, Hospitalists unspecified R21 Rash and other nonspecific skin eruption F41.8 Other specified anxiety disorders Office Visit 07/16/2019 10:50a [facility] I05.9 Rheumatic mitral Assocnithya MD valve disease, Hospitalists unspecified B95.61 Methicillin suscep staph infct causing dis classd elswhr F41.8 Other specified anxiety disorders Office Visit 07/15/2019 10:49a [facility] I05.9 Rheumatic mitral Assocnithya MD valve disease, Hospitalists unspecified R21 Rash and other nonspecific skin eruption F41.8 Other specified anxiety disorders [facility] I33.0 Acute and subacute 8:45a For Infectious MARGUERITE Alvarado infective Diseases endocarditis 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 Dulce Maria I05.9 Rheumatic mitral Assocnithya MD valve disease, Hospitalists unspecified F41.8 Other specified anxiety disorders R21 Rash and other nonspecific skin eruption Office Visit 07/13/2019 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 Millicent Villar, M25.552 Pain in Assocnithya M.D. 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 Maurilio G44.201 Tension-type 9:07a Assoc,nithya Leong M.D. headache, Hospitalists unspecified, intractable G89.4 Chronic pain syndrome K70.30 Alcoholic cirrhosis of liver without ascites E11.9 Type 2 diabetes mellitus without complications G25.81 Restless legs syndrome Office Visit 02/24/2019 9:06a [facility] Assroberta,nithya Thomas DO R51 Headache Hospitalists G89.4 Chronic pain syndrome G25.81 Restless legs syndrome Z79.891 detention (current) use of opiate analgesic Office Visit 02/19/2019 8:30a Wound Care Franny Peng L97.828 Non- prs chronic [facility] MARGUERITE Alvarado ulcer oth prt l low leg with oth severity L97.818 Non-prs chronic ulcer oth prt r low leg with oth severity E11.622 Type 2 diabetes mellitus with other skin ulcer I87.2 Venous insufficiency (chronic) (peripheral) E66.9 Obesity, unspecified Z68.36 Body mass index (BMI) 36.0-36.9, adult Office Visit 02/18/2019 9:05a [facility] Galina K72.90 Hepatic failure, Assoc,nithya Chaudhry M.D. unspecified Hospitalists without coma E11.9 Type 2 diabetes mellitus without complications G25.81 Restless legs syndrome G89.29 Other chronic pain Assessments Date Code Description Provider 08/07/2019 I33.0 Acute and subacute infective Franny Alvarado NP endocarditis 08/07/2019 B95.61 Methicillin susceptible Franny Alvarado NP Staphylococcus aureus infection as the cause of diseases classified elsewhere 08/07/2019 M25.552 Pain in left hip Franny Alvarado NP 08/07/2019 Z79.2 detention (current) use of Franny Alvarado NP antibiotics 08/07/2019 K70.31 Alcoholic cirrhosis of liver with Franny Alvarado NP ascites 07/19/2019 A41.01 Sepsis due to Methicillin susceptible [...] subacute infective Franny Alvarado NP endocarditis 07/17/2019 R21 Rash and other nonspecific skin Dulce Maria Jacques MD eruption 07/17/2019 M87.052 Idiopathic aseptic necrosis of left Franny Ginette Alvarado, TRANSFER STATION ATTENDANT femur 07/17/2019 F41.8 Other specified anxiety disorders Dulce Maria Jacques MD 07/17/2019 K70.30 Alcoholic cirrhosis of liver without Franny Alvarado, TRANSFER STATION ATTENDANT ascites 07/17/2019 E11.9 Type 2 diabetes mellitus without Franny Alvarado, TRANSFER STATION ATTENDANT complications 07/16/2019 I05.9 Rheumatic mitral valve disease, Dulce Maria Jacques MD unspecified 07/16/2019 B95.61 Methicillin susceptible Dulce Maria Jacques MD Staphylococcus aureus infection as the cause of diseases classified elsewhere 07/16/2019 F41.8 Other specified anxiety disorders Dulce Maria Jacques MD 07/15/2019 I05.9 Rheumatic mitral valve disease, Dulce Maria Jacques MD unspecified 07/15/2019 I33.0 Acute and subacute infective Franny Alvarado TRANSFER STATION ATTENDANT endocarditis 07/15/2019 R21 Rash and other nonspecific skin Dulce Maria Jacques MD eruption 07/15/2019 M87.052 Idiopathic aseptic necrosis of left Franny Ginette Alvarado, TRANSFER STATION ATTENDANT femur 07/15/2019 F41.8 Other specified anxiety disorders Dulce Maria Jacques MD 07/15/2019 K70.30 Alcoholic cirrhosis of liver without Franny Alvarado, TRANSFER STATION ATTENDANT ascites 07/15/2019 E11.9 Type 2 diabetes mellitus without Franny Alvarado, TRANSFER STATION ATTENDANT complications 07/14/2019 R40.3 Persistent vegetative state Helder Queen M.D. 07/14/2019 I05.9 Rheumatic mitral valve disease, Dulce Maria Jacques MD unspecified 07/14/2019 F41.8 Other specified anxiety disorders Dulce Maria Jacques MD 07/14/2019 R21 Rash and other nonspecific skin Dulce Maria Jacques MD eruption 07/13/2019 E87.1 Hypo-osmolality and hyponatremia Margaret Anuja, TRANSFER STATION ATTENDANT 07/13/2019 B95.61 Methicillin susceptible Margaret Anuja, TRANSFER STATION ATTENDANT Staphylococcus aureus infection as the cause of diseases classified elsewhere 07/13/2019 M87.052 Idiopathic aseptic necrosis of left Margaret Anuja, TRANSFER STATION ATTENDANT femur 07/13/2019 R23.8 Other skin changes Margaret Anuja, TRANSFER STATION ATTENDANT 07/12/2019 A41.01 Sepsis due to Methicillin susceptible Matthew Nelson MD Staphylococcus aureus 07/12/2019 R78.81 Bacteremia Nia Nichole M.D. 07/12/2019 D64.9 Anemia, unspecified Matthew Nelson MD 07/12/2019 M25.552 Pain in left hip Amparo Rothman M.D. 07/12/2019 E11.9 Type 2 diabetes mellitus without Matthew Nelson MD complications 07/12/2019 M25.552 Pain in left hip Franny Alvarado, TRANSFER STATION ATTENDANT 07/12/2019 M87.052 Idiopathic aseptic necrosis of left Matthew Nelson MD femur 07/12/2019 M87.052 Idiopathic aseptic necrosis of left Amparo Rothman M.D. femur 07/12/2019 M25.552 Pain in left hip Matthew Nelson MD 07/12/2019 R78.81 Bacteremia Franny Alvarado NP 07/12/2019 E87.1 Hypo-osmolality and hyponatremia Matthew Nelson [...] Leong M.D. 02/24/2019 R51 Headache Rosenda Thomas, 02/24/2019 G89.4 Chronic pain syndrome Rosenda Thomas, 02/24/2019 G25.81 Restless legs syndrome Rosenda Thomas, DO 02/24/2019 Z79.891 filling separator (current) use of opiate Rosenda Thomas DO analgesic 02/19/2019 L97.828 Non-pressure chronic ulcer of other Frannybasilia Godfreynamrata MARGUERITE Alvarado part of left lower leg with other specified severity 02/19/2019 L97.818 Non-pressure chronic ulcer of other Franny Peng Christiano, MARGUERITE part of right lower leg with other specified severity 02/19/2019 E11.622 Type 2 diabetes mellitus with other Frannybasilia Cyrmargaretaminah Alvarado NP skin ulcer 02/19/2019 I87.2 Venous [...] Galina Chaudhry M.D. Plan of Treatment Future Appointment(s):08/21/2019 1:30 pm - Franny Alvarado NP at [facility]/23/2020 8:30 am - Marcelino Murillo MD at [facility]08/07/2019 - Franny Alvarado NPI33.0 Acute and subacute infective endocarditisNew Orders:Echocardiogram, Ordered: Comments:Please call the office for rash, fever, or diarrhea. You will need to have an echocardiogram and theoffice will work on getting this arranged.Follow up:2 ljvdjO61.61 Methicillin suscep staph infct causing dis classd jcbpbzV28.552 Pain in left hipZ79.2 filling separator (current) use of pxcuadvmmpmE68.31 Alcoholic cirrhosis of liver with ascites Functional Status Description No Information Available Mental Status Description No Information Available Referrals Description No Information Available
--- OUTSIDE RECORDS SUMMARY | 2019-08-13 12:02 | XMS REPORT | Continuity of Care Document ---
:1950 External Reference #:[id number] Author Name Estrada Richmond M.D. (transmitted by agent of provider Cortney Mckinney) Address [address] [place] [id number] Care Team Providers Name Role Phone Justin Suarez MD - Care Team Information Cutter Helper [phone] Gastroenterology [facility] - Pain Care Team Information Cutter Helper [phone] [facility] Wound [facility] Clinic Care Team Information Cutter Helper [phone] Marcelino Murillo - Neurology Care Team Information Cutter Helper [phone] Problems Active Problems Provider Date Cirrhosis of [...] SIG Qnty Indications Ordering Date Provider Hydrocortisone apply to lower 453.600gm Estrada Porrase, 07/31/2019 2.5% legs two times a M.D. Cream day as needed Wheeled Walker With Dx 25.552 Estrada Richmond, 06/06/2019 Seat M.D. Paroxetine HCL 1 by mouth every 90tabs Estrada Richmond, 09/27/2018 40mg day M.D. Tablets Onetouch Verio Flex monitor insurance 1units Estrada Richmond, 03/12/2018 Bloodglucose will cover. dx M.D. Monitoring System code e11.9 w/Device Kit Onetouch VerWalk-in Appointment Scheduler Use To Test Twice 200units Estrada Richmond, 03/12/2018 Strips Daily as Directed M.D. [facility] Ul[facility] 2 every day and 100units Estrada [...] M.D. Vitamin E 1 po qd Veronica R. 08/21/2014 200Unit Storm, [employer] Capsules Slow-Mag 1 by mouth every 30tabs [...] By Mouth Every M.D. 20mg Tablets DR Day Ocuvite Adult 50+ Take one po daily 90caps Deonna M. 02/03/2014 Brandie Barnes Capsules Vitamin D-3 1 po qod 90tabs E55.9 Deonna M. 06/28/2013 2000Unit Brandie Barnes Tablets Oxycodone HCL take one tablet 90tabs Estrada Richmond, 10mg by mouth every 4 M.D. Tablets hours as needed for pain (pt has #90 at home from pain clinic, this is to increase MDD to 6. Lactulose Take 30MLS By 946units Estrada Richmond, 10GM/15ML Mouth Up To Six M.D. Solution Times Daily Spironolactone take one tablet 180tabs Estrada Richmond, 100mg by mouth every M.D. Tablets day Baclofen Take One Tablet 90tabs Estrada Richmond, 10mg Tablets By Mouth Twice A M.D. Day as Needed; May Cause Sedation / Confusion Fentanyl apply 1 patch 10units Unknown 25mcg/HR every 72 hours Patches 72HR Xifaxan 1 po bid Unknown 200mg Tablets Furosemide 1 1/2 by mouth Unknown 40mg Tablets every day History Medications Furosemide Take 1 & 1/2 135tabs Estrada Richmond M.D. 04/02/2019 - 80mg Tablets Tablets By Mouth 08/02/2019 Every Day Furosemide by mouth every day Estrada Richmond M.D. 02/27/2019 - 40mg Tablets 04/02/2019 Medications Administered in Office Medication SIG Qnty Indications Ordering Provider Date Injection Ketorolac Tromethamine Kendrick Sibley MD 09/01/2017 Per 15 MG (Toradol) Injection Immunizations CPT Code Status Date Vaccine Lot # [id number] Given 06/08/2016 Hep B Vaccine Adult, 3 Dose age >20 yrs [id number] 98850 Given 06/08/2016 Hepatitis A, Adult [id number] 15120 Given 02/11/2016 Hep B Vaccine Adult, 3 Dose age >20 yrs [id number] 13245 Given 11/03/2015 Hep B Vaccine Adult, 3 Dose age >20 yrs [id number] 82116 Given 11/03/2015 Prevnar-13 Pneumococcal Conjugate Vaccine [id number] 56760 Given 11/03/2015 Hepatitis A, Adult [id number] 77269 Given 03/04/2015 Influenza Virus Vaccine, Quadrivalent, 3 Yr > [id number] Quad, Preserv Free 20023 Given 04/28/2014 Pneumovax 23 (PPSV23) 65+ years or high risk 2 to 64 year old 61786 Given 12/19/2012 Zoster Vaccine [id number] 20618 Given 05/17/2012 Tdap (Adacel) [id number] 87117 Given 08/08/2000 DT (Adult) 84351 Refused 01/23/2019 Influenza Virus Vaccine, Quadrivalent, 3 Yr > Quad , Preserv Free 11843 Refused 08/08/2017 Influenza Virus Vaccine, Quadrivalent, 3 Yr > Quad , Preserv Free 91365 Refused 06/06/2017 Influenza Virus Vaccine, Quadrivalent, 3 Yr > Quad , Preserv Free 66120 Refused 01/27/2017 [place] [address] Refused 07/18/2016 Influenza Virus Vaccine, Quadrivalent, 3 Yr > Quad , Preserv Free 42351 Refused 02/16/2012 Influenza Vaccine-Preservative Free 3 Yrs [...] Test Result H/L Range Note CBC Auto 08/05/2019 [facility] White Blood 4.2 10^3/ uL Normal 3.5-10.8 Diff [phone] Count Red Blood Count 3.50 10^6/uL Low 3.70-4.87 [...] Red Blood Cells % 0.0 Comp Metabolic 08/05/2019 [facility] Sodium 133 mmol/ L Low 135-145 Panel [phone] Potassium 3.7 mmol/L Normal 3.5-5.0 Chloride 102 [...] Egfr 110.3 >60 1 Laboratory test 08/05/2019 [facility] Magnesium 2.0 mg/dL Normal 1.9-2.7 finding [phone] Laboratory test 08/04/2019 [facility] Ammonia 58 High 16-53 finding [phone] mcmol/L CBC Auto Diff 08/04/2019 [facility] White Blood 4.1 Normal 3.5-10.8 [phone] Count 10^3/uL Red Blood Count 3.52 10^6/uL Low 3.70-4.87 Hemoglobin 10.3 g/dL Low 12.0-16.0 Hematocrit 31 % Low 35-47 Mean Corpuscular Volume 88 fL Normal 80-97 Mean Corpuscular Hemoglobin 29 pg Normal 27-31 Mean Corpuscular HGB Conc 33 g/dL Normal 31-36 Red Cell Distribution Width 20 % High 10-15 Platelet Count 179 10^3/uL Normal 150-450 Mean Platelet Volume 7.4 fL Normal 7.4-10.4 Abs Neutrophils 2.6 10^3/uL Normal 1.5-7.7 Abs Lymphocytes 0.7 10^3/uL Low 1.0-4.8 Abs Monocytes 0.5 10^3/uL Normal 0-0.8 Abs Eosinophils 0.2 10^3/uL Normal 0-0.6 Abs Basophils 0.0 10^3/uL Normal 0-0.2 Abs Nucleated RBC 0.0 10^3/uL Granulocyte % 64.2 % Lymphocyte % 17.7 % Monocyte % 13.5 % Eosinophil % 3.8 % Basophil % 0.8 % Nucleated Red Blood Cells % 0.2 Comp Metabolic 08/04/2019 [facility] Sodium 131 mmol/ L Low 135-145 Panel [phone] Potassium 3.9 mmol/L Normal 3.5-5.0 Chloride 103 mmol/L Normal 101-111 Co2 Carbon Dioxide 23 mmol/L Normal 22-32 Anion Gap 5 mmol/L Normal 2-11 Glucose 83 mg/dL Normal 70-100 Blood Urea Nitrogen 16 mg/dL Normal 6-24 Creatinine 0.69 mg/dL Normal 0.51-0.95 BUN/Creatinine Ratio 23.2 High 8-20 Calcium 9.0 mg/dL Normal 8.6-10.3 Total Protein 8.1 g/dL Normal 6.4-8.9 Albumin 2.8 g/dL Low 3.2-5.2 Globulin 5.3 g/dL High 2-4 Albumin/Globulin Ratio 0.5 Low 1-3 Total Bilirubin 0.70 mg/dL Normal 0.2-1.0 Alkaline Phosphatase 338 U/L High 34-104 Alt 6 U/L Low 7-52 Ast 40 U/L High 13-39 Egfr Non- 85.1 >60 Egfr 103.0 >60 2 Laboratory test 08/04/2019 [facility] Magnesium 1.7 mg/dL Low 1.9-2.7 finding [phone] CBC Auto Diff 07/11/2019 [facility] White Blood 11.5 High 3.5-10.8 [phone] Count 10^3/uL Red Blood Count 4.07 10^6/uL [...] Blood Cells % 0.0 Comp Metabolic 07/11/2019 [facility] Sodium 125 mmol/ L Low 135-145 Panel [phone] Potassium 4.0 mmol/L Normal 3.5-5.0 Chloride 97 [...] Egfr Non- 118.0 >60 Egfr 142.8 >60 3 Laboratory 07/11/2019 [facility] C Reactive 237.61 mg /L High <8.01 test finding [phone] Protein Drug Screen 06/13/2019 [facility] Urine None None Urine Pain [phone] Hydrocodone Detected Detect Clinic Screen Urine Oxycodone Screen Presumptive Posi <SEE NOTE> Abnormal None Detect 4 Urine Fentanyl Screen Presumptive Posi <SEE NOTE> Abnormal None Detect 5 Urine Methadone Screen None Detected None Detect Urine Buprenorphine Screen None Detected None Detect Urine Amphetamine Screen None Detected None Detect Urine Barbiturates Screen None Detected None Detect Urine Benzodiazepine Screen None Detected None Detect Urine Cannabinoids Screen None Detected None Detect Urine Cocaine Screen None Detected None Detect Urine Opiates Screen Presumptive Posi <SEE NOTE> Abnormal None Detect 6 Urine Phencyclidine Screen None Detected None Detect 7 Comp Metabolic 04/12/2019 [facility] Sodium 134 mmol/ L Low 135-145 Panel [phone] Potassium 3.6 mmol/L Normal 3.5-5.0 Chloride 104 [...] Egfr Non- 104.0 >60 Egfr 125.9 >60 8 CBC Auto 04/12/2019 [facility] White Blood 4.7 10^3/ uL Normal 3.5-10.8 Diff [phone] Count Red Blood Count 3.99 10^6/uL Normal [...] Blood Cells % 0.3 Laboratory test 02/24/2019 [facility] Troponin-I (TnI ) 0.00 ng/mL <0.04 9 finding [phone] Acetaminophen < 15 g/mL 10 Alcohol < 10 mg/dL Normal <10 Salicylate < 2.50 mg/dL <30 Comp Metabolic 02/24/2019 [facility] Sodium 132 mmol/ L Low 135-145 Panel [phone] Potassium 3.6 mmol/L Normal 3.5-5.0 Chloride 104 [...] Egfr Non- 70.7 >60 Egfr 85.6 >60 11 Alkaline Phosphatase 194 U/L High 34-104 Laboratory test 02/24/2019 [facility] Lactic Acid 1.4 mmol/L Normal 0.5-2.0 12 finding [phone] Ammonia 58 mcmol/L High 16-53 CBC Auto 02/24/2019 [facility] White Blood 9.1 10^3/ uL Normal 3.5-10.8 Diff [phone] Count Red Blood Count 4.02 10^6/uL Normal [...] Cells % 0.1 Urine Culture And 02/17/2019 [facility] Urine Culture SEE RESULT 13 Sensitivities [phone] BELOW Urinalysis Profile 02/17/2019 [facility] Urine Color Yellow [phone] Urine Appearance Clear Urine Specific [place]aks 1.012 Normal 1.010-1.030 Urine pH 6.0 Normal [...] Cell Present Abnormal Absent Urine Drug 02/17/2019 [facility] Urine None Detected None Detect SCR ED & [phone] Amphetamine Pain Clinic Screen Urine Barbiturates Screen None Detected None Detect Urine Benzodiazepine Screen None Detected None Detect Urine Cannabinoids Screen None Detected None Detect Urine Opiates Screen None Detected None Detect Urine Phencyclidine Screen None Detected None Detect 14 Urine Cocaine Screen None Detected None Detect Laboratory test 02/17/2019 [facility] Ammonia 86 mcmol/L High 16-53 finding [phone] Inr/Protime 02/17/2019 [facility] Inr 1.41 High 0.82-1.09 15 [phone] Laboratory test 02/17/2019 [facility] Lactic Acid 1.3 mmol/L Normal 0.5-2.0 16 finding [phone] CBC Auto Diff 02/17/2019 [facility] White Blood 6.1 10^3/uL Normal 3.5-10.8 [phone] Count Red Blood Count 3.71 10^6/uL Normal [...] Blood Cells % 0.0 Basic Metabolic 02/04/2019 [facility] Sodium 135 mmol /L Normal 135-145 Panel [phone] Potassium 3.9 mmol/L Normal 3.5-5.0 Chloride 106 mmol/L Normal 101-111 Co2 Carbon Dioxide 18 mmol/L Low 22-32 Anion Gap 11 mmol/L Normal 2-11 Glucose 244 mg/dL High 70-100 Blood Urea Nitrogen 19 mg/dL Normal 6-24 Creatinine 1.06 mg/dL High 0.51-0.95 BUN/Creatinine Ratio 17.9 Normal 8-20 Calcium 8.0 mg/dL Low 8.6-10.3 Egfr Non- 51.9 >60 Egfr 62.8 >60 17 1 Because ethnic data is not always [...] 5 Kidney failure <15 (or dialysis) 2 Because ethnic data is not always readily [...] 15-29 5 Kidney failure <15 (or dialysis) 3 Because ethnic data is not always readily [...] 15-29 5 Kidney failure <15 (or dialysis) 4 Presumptive Positive Presumptive positive results are unconfirmed. 5 Presumptive Positive Presumptive positive results are unconfirmed. 6 Presumptive Positive Presumptive positive results are unconfirmed. 7 The specimen was tested at the listed cutoffs: Drug Class Test level (ng/mL) Hydrocodone 300 Oxycodone 100 Fentanyl 1 Methadone 150 Buprenorphine 5 Amphetamines 500 Barbiturates 200 Benzodiazepines 200 Cocaine 150 Cannabinoids 50 Opiates 300 PCP 25 Specimen was received without chain of custody. Results should be used for medical purposes only. 8 Because ethnic data is not always [...] immediately to secondary confirmatory testing. Using the [employer] 800 Access Immunoassay systems, the 99th percentile upper reference limit was demonstrated to be < 0.03 ng/mL. 10 Therapeutic concentration: <50 ug/mL Toxic concentration: >120 ug/mL 11 Because ethnic data is not always readily [...] 15-29 5 Kidney failure <15 (or dialysis) 12 [facility] Severe Sepsis and Septic Shock Management Bundle Measure requires all lactic acids initially measuring >2.0 mmol/L be repeated. 13 SEE RESULT BELOW Name: ISAIAS SALEH : [address]: Cornelia Montano DO Acct: [id number] Unit: [id number] AGE: 68 Location: [place] [address] Re02/18/19 SEX: F Status: ADM Ana María SPEC: [id number] DENITA: 02/17/19 [facility] DR: Trish Michaels MD REQ: [id number] RECD: 02/17/19 STATUS: BENNETT MOREIRA DR: Estrada Richmond MD _ SOURCE: URINE SPDESC: ORDERED: Urine Culture Procedure Result Reported Site Urine Culture Final 02/19/19- 0855 ML No Growth (<1,000 CFU/mL) * ML - Main Lab . END OF REPORT DEPARTMENT OF PATHOLOGY, [address] [place] [address] Miguel Angel Michel M.D. Director [facility] # [id number] 14 The urine specimen was tested at the listed cutoffs: Drug class test level (ng/mL) Amphetamines 500 Barbiturates 200 Benzodiazepine metabolites 200 Cocaine metabolites 150 Cannabinoids 50 Opiates 300 Pcp 25 Specimen was received without chain of custody. Results should be used for medical purposes only. 15 Standard intensity warfarin therapeutic range: 2.0-3.0 High intensity warfarin therapeutic range: 2.5-3.5 16 [facility] Severe Sepsis and Septic Shock Management Bundle Measure requires all lactic acids initially measuring >2.0 mmol/L be repeated. 17 Because ethnic data is not always readily [...] Date Location Provider Dx Diagnosis Office Visit 07/31/2019 Main Office Estrada Richmond M.D. 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 M54.32 Sciatica, left side 3:15p Office Visit 06/15/2019 Main Office Angela Abdul NP S06.0x0A Concussion without 11:15a loss of consciousness, initial encounter W18.12xA Fall from or off toilet w strike against object, init Office Visit 05/28/2019 3:15p Mallory Richmond M.D. R07.89 Other chest pain L20.9 Atopic dermatitis, unspecified Office Visit 04/02/2019 3:15p Mallory Richmond E11.9 Type 2 diabetes M.DVarsha mellitus [...] femur 07/31/2019 K74.69 Other cirrhosis of liver Estrada Richmond M.D. 07/10/2019 M87.851 Other osteonecrosis, right [...] Estrada Richmond M.D. complications Plan of Treatment Future Appointment(s):08/07/2019 11:30 am - Estrada Richmond M.D. at Main Atagtq5007/30 - Estrada Richmond M.D.I38 Endocarditis, valve unspecifiedComments:Just arrived home and has plan in place to be able to continue IV antibiotics for 6 weeks.No new fevers.Repeat echocardiogram when antibiotics are done.Follow up: Video visit 1 weekM87.059 Idiopathic aseptic necrosis of unspecified femurComments:Pain now under adequate control but with an increase dose of oxycodone. Now needing 6 a day.Continuing on same dose of fentanyl.We spoke with the pain clinic who wanted me to provide her narcotic prescriptions until she can be seen in the pain clinic again.She already has 90 oxycodone at home so I have given her a prescription for an additional 90 tablets that will allow her 6 a day.She is reportinglots of skin irritation from her fentanyl.I did not make any adjustment in her long-acting pain medication and she will discuss it with the pain clinic at her follow-up visit.K74.69 Other cirrhosis of liverComments:We review her discharge summary which indicated 200 mg of spironolactone daily and 120 mg of furosemide daily.She thinks Dr. Suarez had intended her to be on lower doses and she will call his office today to confirm the dose. Functional Status Functional Condition Comment Date Status Glasses Active Mental Status Description No Information Available Referrals Refer to Reason for Referral Status Appt Date Amparo Rothman REFERRAL TO: Dr. Rothman for avascular necrosis Created diagnosis. PLEASE SEND CONSULT NOTE TO [facility] @ [phone]. [address] [place] [address] [phone] [facility] Pain Clinic REFERRAL TO: [facility] for Left Sciatica Created Pain PLEASE CONTACT PT TO SCHEDULE APPT. PLEASE FAX APPOINTMENT DATE/TIME TO [facility] @ [phone]. PLEASE SEND CONSULT NOTE TO [facility] @ [phone]. [address] [place] [address] [phone]
--- OUTSIDE RECORDS SUMMARY | 2019-08-13 12:02 | XMS REPORT | Continuity of Care Document ---
:1950 External Reference #:[id number] Author Name Estrada Richmond M.D. (transmitted by agent of provider Cortney Mckinney) Address [address] [place] [id number] Care Team Providers Name Role Phone Justin Suarez MD - Care Team Information Manager Ems [phone] Gastroenterology [facility] Pain [facility] - Pain Care Team Information Manager Ems [phone] [facility] Wound Care Clinic Care Team Information Manager Ems [phone] Marcelino Murillo - Neurology Care Team Information Manager Ems [phone] Problems Active Problems Provider Date Cirrhosis of [...] Monitoring System code e11.9 w/Device Kit Onetouch VerGCW Use To Test Twice 200units Estrada Richmond, 03/12/2018 Strips Daily as Directed M.D. Hiptypetouch Ultrasoft 2 every day and 100units Estrada [...] po qd Veronica R. 08/21/2014 200Unit Storm, QUALITY ASSURANCE COORDINATOR-C Capsules Slow-Mag 1 by mouth every 30tabs [...] CPT Code Status Date Vaccine Lot # [id number] Given 06/08/2016 Hep B Vaccine Adult, 3 Dose age >20 yrs [id number] 74421 Given 06/08/2016 Hepatitis A, Adult [id number] 56029 Given 02/11/2016 Hep B Vaccine Adult, 3 Dose age >20 yrs [id number] 61117 Given 11/03/2015 Hep B Vaccine Adult, 3 Dose age >20 yrs [id number] 42964 Given 11/03/2015 Prevnar-13 Pneumococcal Conjugate Vaccine [id number] 06743 Given 11/03/2015 Hepatitis A, Adult [id number] 77276 Given 03/04/2015 Influenza Virus Vaccine, Quadrivalent, 3 Yr > [id number] Quad, Preserv Free 73081 Given 04/28/2014 Pneumovax 23 (PPSV23) 65+ years or high risk 2 to 64 year old 09629 Given 12/19/2012 Zoster Vaccine [id number] 25367 Given 05/17/2012 Tdap (Adacel) [id number] 95745 Given 08/08/2000 DT (Adult) 54451 Refused 01/23/2019 Influenza Virus Vaccine, Quadrivalent, 3 Yr > Quad , Preserv Free 76088 Refused 08/08/2017 Influenza Virus Vaccine, Quadrivalent, 3 Yr > Quad , Preserv Free 21672 Refused 06/06/2017 Influenza Virus Vaccine, Quadrivalent, 3 Yr > Quad , Preserv Free 54133 Refused 01/27/2017 [place] [address] Refused 07/18/2016 Influenza Virus Vaccine, Quadrivalent, 3 Yr > Quad , Preserv Free 57152 Refused 02/16/2012 Influenza Vaccine-Preservative Free 3 Yrs [...] Test Result H/L Range Note Laboratory test 08/05/2019 [facility] Magnesium 2.0 mg/dL Normal 1.9-2.7 finding [phone] C Reactive Protein 63.08 mg/L High <8.01 Comp Metabolic 08/05/2019 [facility] Sodium 133 mmol/ L Low 135-145 Panel [phone] Potassium 3.7 mmol/L Normal 3.5-5.0 Chloride 102 [...] Non- 91.2 >60 Egfr 110.3 >60 1 CBC Auto 08/05/2019 [facility] White Blood 4.2 10^3/ uL Normal 3.5-10.8 Diff [phone] Count Red Blood Count 3.50 10^6/uL Low [...] Red Blood Cells % 0.0 Laboratory test 08/04/2019 [facility] Ammonia 58 mcmol/L High 16-53 finding [phone] CBC Auto Diff 08/04/2019 [facility] White Blood 4.1 10^3/uL Normal 3.5-10.8 [phone] Count Red Blood Count 3.52 10^6/uL Low 3.70-4.87 [...] Blood Cells % 0.2 Comp Metabolic 08/04/2019 [facility] Sodium 131 mmol/ L Low 135-145 Panel [phone] Potassium 3.9 mmol/L Normal 3.5-5.0 Chloride 103 [...] Egfr 103.0 >60 2 Laboratory test 08/04/2019 [facility] Magnesium 1.7 mg/dL Low 1.9-2.7 finding [phone] CBC Auto Diff 07/11/2019 [facility] White Blood 11.5 High 3.5-10.8 [phone] Count 10^3/uL Red Blood Count 4.07 10^6/uL [...] Blood Cells % 0.0 Comp Metabolic 07/11/2019 [facility] Sodium 125 mmol/ L Low 135-145 Panel [phone] Potassium 4.0 mmol/L Normal 3.5-5.0 Chloride 97 [...] >60 Egfr 142.8 >60 3 Laboratory 07/11/2019 [facility] C Reactive 237.61 mg /L High <8.01 test finding [phone] Protein Drug Screen 06/13/2019 [facility] Urine None None Urine Pain [phone] Hydrocodone Detected Detect Clinic Screen Urine Oxycodone [...] Detected None Detect 7 Comp Metabolic 04/12/2019 [facility] Sodium 134 mmol/ L Low 135-145 Panel [phone] Potassium 3.6 mmol/L Normal 3.5-5.0 Chloride 104 [...] Egfr 125.9 >60 8 CBC Auto 04/12/2019 [facility] White Blood 4.7 10^3/ uL Normal 3.5-10.8 Diff [phone] Count Red Blood Count 3.99 10^6/uL Normal [...] Blood Cells % 0.3 Laboratory test 02/24/2019 [facility] Troponin-I (TnI ) 0.00 ng/mL <0.04 9 finding [phone] Acetaminophen < 15 g/mL 10 Alcohol < 10 mg/dL Normal <10 Salicylate < 2.50 mg/dL <30 Comp Metabolic 02/24/2019 [facility] Sodium 132 mmol/ L Low 135-145 Panel [phone] Potassium 3.6 mmol/L Normal 3.5-5.0 Chloride 104 [...] 194 U/L High 34-104 Laboratory test 02/24/2019 [facility] Lactic Acid 1.4 mmol/L Normal 0.5-2.0 12 finding [phone] Ammonia 58 mcmol/L High 16-53 CBC Auto 02/24/2019 [facility] White Blood 9.1 10^3/ uL Normal 3.5-10.8 Diff [phone] Count Red Blood Count 4.02 10^6/uL Normal [...] Cells % 0.1 Urine Culture And 02/17/2019 [facility] Urine Culture SEE RESULT 13 Sensitivities [phone] BELOW Urinalysis Profile 02/17/2019 [facility] Urine Color Yellow [phone] Urine Appearance Clear Urine Specific [place] 1.012 Normal 1.010-1.030 Urine pH 6.0 [...] Cell Present Abnormal Absent Urine Drug 02/17/2019 [facility] Urine None Detected None Detect SCR ED & [phone] Amphetamine Pain Clinic Screen Urine Barbiturates Screen None Detected None Detect Urine Benzodiazepine Screen None Detected None Detect Urine Cannabinoids Screen None Detected None Detect Urine Opiates Screen None Detected None Detect Urine Phencyclidine Screen None Detected None Detect 14 Urine Cocaine Screen None Detected None Detect Laboratory test 02/17/2019 [facility] Ammonia 86 mcmol/L High 16-53 finding [phone] Inr/Protime 02/17/2019 [facility] Inr 1.41 High 0.82-1.09 15 [phone] Laboratory test 02/17/2019 [facility] Lactic Acid 1.3 mmol/L Normal 0.5-2.0 16 finding [phone] CBC Auto Diff 02/17/2019 [facility] White Blood 6.1 10^3/uL Normal 3.5-10.8 [phone] Count Red Blood Count 3.71 10^6/uL Normal [...] immediately to secondary confirmatory testing. Using the [employer] | Anywhere DxI 800 Access Immunoassay systems, the 99th [...] 5 Kidney failure <15 (or dialysis) 12 IDS Severe Sepsis and Septic Shock Management Bundle Measure requires all lactic acids initially measuring >2.0 mmol/L be repeated. 13 SEE RESULT BELOW Name: ISAIAS SALEH : [address]: Cornelia Montano DO Acct: [id number] Unit: [id number] AGE: 68 Location: [place] [address] Re02/18/19 SEX: F Status: ADM Ana María SPEC: [id number] DENITA: 02/17/19 [facility] DR: Trish Michaels MD REQ: [id number] RECD: 02/17/19 STATUS: COMP OTHR DR: Estrada Richmond MD _ SOURCE: URINE SPDESC: ORDERED: Urine Culture Procedure Result Reported Site Urine Culture Final 02/19/19- 0855 ML No Growth (<1,000 CFU/mL) * ML - Main Lab . END OF REPORT DEPARTMENT OF PATHOLOGY, [address] [place] [address] Miguel Angel Michel M.D. Director [facility] # [id number] 14 The urine specimen was tested at the listed cutoffs: Drug class test level (ng/mL) Amphetamines 500 Barbiturates 200 Benzodiazepine metabolites 200 Cocaine metabolites 150 Cannabinoids 50 Opiates 300 Pcp 25 Specimen was received without chain of custody. Results should be used for medical purposes only. 15 Standard intensity warfarin therapeutic range: 2.0-3.0 High intensity warfarin therapeutic range: 2.5-3.5 16 [facility] Severe Sepsis and Septic Shock Management Bundle Measure requires all lactic acids initially measuring >2.0 mmol/L be repeated. Procedures Description No Information Available Medical Devices Description No Information Available Encounters Type Date Location Provider Dx Diagnosis Office Visit 08/06/2019 Mallory Richmond M.D. 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 07/31/2019 I38 Endocarditis, valve unspecified Estrada Richmond [...] Estrada Richmond M.D. complications Plan of Treatment 08/06/2019 - Estrada Richmond, M.D.G25.5 Other choreaComments:Having what seems like choreaform movements, perhaps muscle twitching.Labs in the ER did not reveal any abnormalities other than low Mg in the first visit.This could be related to her medicines or other nutritional deficiency.It does not seem to represent serious medical issue.She is taking 60mg of baclofen a day.Continue Mg.Encouraged fluids.I suggested a low dose of gabapentin but she was having and sedation when she was taking 3600mg a day.I reassure her that 100mg tid would not cause the same issues.She declines. Has put in a call to her neurologist and chief design branch.She will discuss withthem. Functional Status Functional Condition Comment Date Status Glasses Active Mental Status Description No Information Available Referrals Refer to Reason for Referral Status Appt Date Amparo Rothman REFERRAL TO: Dr. Rothman for avascular necrosis Created diagnosis. PLEASE SEND CONSULT NOTE TO [facility] @ [phone]. [address] [place] [id number] [phone] [facility] Pain Clinic REFERRAL TO: [facility] for Left Sciatica Created Pain PLEASE CONTACT PT TO SCHEDULE APPT. PLEASE FAX APPOINTMENT DATE[facility] @ [phone]. PLEASE SEND CONSULT NOTE TO [facility] @ [phone]. [address] [facility] [place] [id number] [phone]
--- OUTSIDE RECORDS SUMMARY | 2019-08-13 12:02 | XMS REPORT ---
:1950 Author Organization [facility] Care Team Providers Name Role Phone Unavailable Unavailable Unavailable Problems Condition Condition Condition Status Onset Resolution Last Treating Comments Name Details Category Date Date Treatment Clinician Date Other Other Diagnosis Active Darya cirrhosis cirrhosis 4-15 [place] of liver of liver RN Allergies, Adverse Reactions, Alerts Allergy Name Allergy Status Severity Reaction(s) Onset Inactive Treating Comments Type Date Date Clinician NSAIDS Allergen Active Unknown Reaction 2017-04 [place] (Non-Steroid Group Unknown 2-28 Donovan al Anti-Inflamm atory Drug) Penicillins Allergen Active Unknown Reaction 2017-04 [place] Group Unknown 2-28 Donovan Sulfa Allergen Active Unknown Reaction 2017-04 [place] (Sulfonamide Group Unknown 2-28 Donovan Antibiotics) morphine Base Active Unknown Reaction 2017-04 [place] Ingredient Unknown 2-28 Donovan aspirin Base Active Unknown Reaction 2017-04 [place] Ingredient Unknown 2-28 Donovan erythromycin Base Active Unknown Reaction 2017-04 [place] base Ingredient Unknown 2-28 Donovan sulfamethoxa Base Active Unknown Reaction 2017-04 [place] zole Ingredient Unknown 2-28 Donovan trimethoprim Base Active Unknown Reaction 2017-04 [place] Ingredient Unknown 2-28 Donovan vancomycin Base Active Unknown Reaction 2017-04 [place] Ingredient Unknown 2-28 Donovan meloxicam Base Active Unknown Reaction 2017-04 [place] Ingredient Unknown 2-28 Donovan Medications Ordered Filled Start Stop Current Ordering Indication Dosage Frequency Signature Comments Components Medication Medication Date Date Medication? Clinician (SIG) Name Name No Known No Known No None None None Medications Medications For This For This Patient Patient Procedures This patient has no known procedures. Results This patient has no known results.
--- OUTSIDE RECORDS SUMMARY | 2019-08-13 12:02 | XMS REPORT | Continuity of Care Document ---
:1950 External Reference #:[id number] Author Name Helder Queen M.D. (transmitted by agent of provider Yoon Cristina) Address [address] [place] [phone] Care Team Providers Name Role Phone Estrada Richmond M.D. - Family Medicine Care Team Information Regional Office Coordinator Problems Active Problems Provider Date Lumbar radiculopathy [...] Ordering Date Provider Oxygen Patient would like 1units Peggy 02/27/2019 [facility] to discontinue MARGUERITE Chong supplemental oxygen against medical advice Pregabalin 1 by mouth three Unknown 25mg times per day Capsules Xifaxan 1 tablets two times Unknown 200mg Tablets a day Cefazolin Sodium 2gm iv every 8 hrs Unknown through [employer] 2GM/20ML Soln Prefill Syringe Baclofen 1 tab bid Ng, 10mg Tablets MAYNOR Bowman Vitamin E 1 po qd Unknown 200Unit Capsules Alendronate Sodium take 1 tablet by Unknown 70mg mouth every week Tablets Vitamin D3 1 by mouth every Unknown 2000Unit day Tablets Fentanyl apply one patch 10units Unknown 25mcg/HR once every 3 days Patches 72HR Calcium 600 1 by mouth every Unknown 600mg day Tablets Zinc Gluconate 1 by mouth bid Unknown 50mg every day Tablets Klor-Con M20 1 by mouth three Unknown 20Meq times daily Tablets ER Pantoprazole Sodium 1 tab po daily Estrada Richmond, M.D. 20mg Tablets DR Oxycodone HCL 1 tab po every 4-6 Estrada Richmond, 10mg hrs as needed for M.D. Tablets pain Spironolactone 2 by mouth every Estrada Richmond, 100mg day M.D. Tablets Mirtazapine take 1 tab at Estrada Richmond, 30mg bedtime M.D. Tablets Lactulose tutrate ti 2-3 bm's Estrada Richmond, 10GM/15ML per day M.D. Solution Furosemide 1 1/2 by mouth Estrada Richmond, 80mg Tablets every day M.D. Medications Administered in Office Medication SIG Qnty [...] Result H/L Range Note Comp Metabolic 08/05/2019 [facility] Sodium 133 mmol/L Low 135 -145 Panel [address] [place] [address] [phone] Potassium 3.7 mmol/L Normal 3.5-5.0 Chloride 102 [...] Egfr 110.3 >60 1 Laboratory test 08/05/2019 [facility] Magnesium 2.0 mg/dL Normal 1.9-2.7 finding [address] [place] [address] [phone] C Reactive Protein 63.08 mg/L High <8.01 CBC Auto 08/05/2019 [facility] White Blood 4.2 10^3/uL Normal 3.5-10.[address] [place] [address] [phone] Red Blood Count 3.50 10^6/uL Low 3.70-4.87 [...] dialysis) Procedures Date Code Description Status 07/14/2019 47898 EKG, Interpretation Only Completed 07/12/2019 22690 ECHO Transthorasic Realtime 2D W Doppler & Color Flow Hosp Completed Medical Devices Description No Information Available Encounters Type Date Location Provider Dx Diagnosis [facility] I05.9 Rheumatic mitral 10:52a nithya Snyder MD valve disease, Hospitalists unspecified R21 Rash and other nonspecific skin eruption F41.8 Other specified anxiety disorders Office Visit 07/17/2019 [facility] I33.0 Acute and subacute 8:48a For Infectious Christiano, NO BAKE MOLDER infective Diseases endocarditis 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 K70.30 Alcoholic cirrhosis of liver without ascites E11.9 Type 2 diabetes mellitus without complications Office [facility]2019 [facility] Rheumatic mitral Assocnithya MD valve disease, Hospitalists unspecified R21 Rash and other nonspecific skin eruption F41.8 Other specified anxiety disorders Office Visit 07/16/2019 10[facility] I[facility].9 Rheumatic mitral Assnithya granados MD valve disease, Hospitalists unspecified B95.61 Methicillin suscep staph infct causing dis classd elswhr F41.8 Other specified anxiety disorders Office Visit 07/15/2019 10[facility] I[facility].9 Rheumatic mitral Assnithya granados MD valve disease, Hospitalists unspecified R21 Rash and other nonspecific skin eruption F41.8 Other specified anxiety disorders Office Visit 07/15/2019 [facility] I33.0 Acute and subacute 8:45a For Infectious Christiano NO BAKE MOLDER infective Diseases endocarditis 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 R23.8 Other skin changes Office Visit 07/12/2019 [facility] Matthew A41.01 Sepsis due to 10:45a Assoc,pc MD Leslie Methicillin Hospitalists susceptible Staphylococcus aureus D64.9 Anemia, unspecified E11.9 Type 2 diabetes mellitus without complications 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 M25.552 Pain in left hip E87.1 Hypo-osmolality and hyponatremia Office Visit 07/12/2019 8:43a [facility] Epifaniophu[facility] M25.552 Pain in Infectious Alvarado, NO BAKE MOLDER left hip Diseases R78.81 Bacteremia B95.7 Oth staphylococcus as the cause of diseases classd elswhr M54.2 Cervicalgia K70.30 Alcoholic cirrhosis of liver without ascites Office Visit 07/12/2019 12:14p [facility] Amparo Rothman M25.552 Pain in left at [place] M.DVarsha hip 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 headache, Hospitalists unspecified, intractable G89.4 Chronic pain syndrome K70.30 Alcoholic cirrhosis of liver without ascites E11.9 Type 2 diabetes mellitus without complications G25.81 Restless legs syndrome Office Visit 02/24/2019 9:06a [facility] nithya Snyder DO R51 Headache Hospitalists G89.4 Chronic pain syndrome G25.81 Restless legs syndrome Z79.891 medical terminologist (current) use of opiate analgesic Office Visit 02/19/2019 8:30a [facility]anny Epifaniodaylinaminah L97.828 Non- prs chronic [facility] Alvarado NP ulcer oth prt l low leg with oth severity L97.818 Non-prs chronic ulcer oth prt r low leg with oth severity E11.622 Type 2 diabetes mellitus with other skin ulcer I87.2 Venous insufficiency (chronic) (peripheral) E66.9 Obesity, unspecified Z68.36 Body mass index (BMI) 36.0-36.9, adult Office Visit 02/18/2019 9:05a [facility] K72.90 Hepatic failure, Assoc,nithya Chaudhry M.D. unspecified [...] of left Franny Alvarado NP femur 07/17/2019 F41.8 Other specified anxiety disorders Dulce Maria Jacques MD 07/17/2019 K70.30 Alcoholic cirrhosis of liver without Franny Saeck Alvarado, NO BAKE MOLDER ascites 07/17/2019 E11.9 Type 2 diabetes mellitus without Franny Franciscokleblack Alvarado, NO BAKE MOLDER complications 07/16/2019 I05.9 Rheumatic mitral valve disease, Dulce Maria Jacques MD unspecified 07/16/2019 B95.61 Methicillin susceptible Dulce Maria Jacques MD Staphylococcus aureus infection as the cause of diseases classified elsewhere 07/16/2019 F41.8 Other specified anxiety disorders Dulce Maria Jacques MD 07/15/2019 I05.9 Rheumatic mitral valve disease, Dulce Maria Jacques MD unspecified 07/15/2019 I33.0 Acute and subacute infective Franny Peng Alvarado, NO BAKE MOLDER endocarditis 07/15/2019 R21 Rash and other nonspecific skin Dulce Maria Jacques MD eruption 07/15/2019 M87.052 Idiopathic aseptic necrosis of left Franny Ginette Alvarado, NO BAKE MOLDER femur 07/15/2019 F41.8 Other specified anxiety disorders Dulce Maria Jacques MD 07/15/2019 K70.30 Alcoholic cirrhosis of liver without Franny Franciscokleblack Alvarado, NO BAKE MOLDER ascites 07/15/2019 E11.9 Type 2 diabetes mellitus without Franny Winklphuonglack Alvarado, NO BAKE MOLDER complications 07/14/2019 R40.3 Persistent vegetative state Helder Queen M.D. 07/14/2019 I05.9 Rheumatic mitral valve disease, Dulce Maria Jacques MD unspecified 07/14/2019 F41.8 Other specified anxiety disorders Dulce Maria Jacques MD 07/14/2019 R21 Rash and other nonspecific skin Dulce Maria Jacques MD eruption 07/13/2019 E87.1 Hypo-osmolality and hyponatremia Margaret Anuja, NO BAKE MOLDER 07/13/2019 B95.61 Methicillin susceptible Margaret Anuja, NO BAKE MOLDER Staphylococcus aureus infection as the cause of diseases classified elsewhere 07/13/2019 M87.052 Idiopathic aseptic necrosis of left Margaret Anuja, NO BAKE MOLDER femur 07/13/2019 R23.8 Other skin changes Margaret Anuja, NO BAKE MOLDER 07/12/2019 A41.01 Sepsis due to Methicillin susceptible Matthew Nelson MD Staphylococcus aureus 07/12/2019 R78.81 Bacteremia Nia Nichole M.D. 07/12/2019 D64.9 Anemia, unspecified Matthew Nelson MD 07/12/2019 M25.552 Pain in left hip Amparo Rothman M.D. 07/12/2019 E11.9 Type 2 diabetes mellitus without Matthew Nelson MD complications 07/12/2019 M25.552 Pain in left hip Franny Alvarado NP 07/12/2019 M87.052 Idiopathic aseptic necrosis of left [...] DO 02/24/2019 G89.4 Chronic pain syndrome Rosenda Chaoban, DO 02/24/2019 G25.81 Restless legs syndrome Rosenda William, DO 02/24/2019 Z79.891 medical terminologist (current) use of opiate Rosenda William, DO [...] 1:30 pm - Franny Alvarado NP at [facility]ious Qhngzhsh78/21/2019 - Peggy Chong NPG47.33 Obstructive sleep apnea [...]
--- OUTSIDE RECORDS SUMMARY | 2019-08-13 12:02 | XMS REPORT | Continuity of Care Document ---
:1950 External Reference #:[id number] Author Name Franny Alvarado NP Address [address] [place] [address] Care Team Providers Name Role Phone Estrada Richmond M.D. 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 Problems Active Problems Provider Date Lumbar radiculopathy [...] Ordering Date Provider Oxygen Patient would like son [place] 02[place]27[place]2019 [facility] [place] MARGUERITE Chong supplemental oxygen against medical advice Ferrous Sulfate Take 1 tablet by Unknown mouth bid 325(65Fe) mg Tablets Slow-Mag Take 1 tablet by Unknown 71.5-119mg mouth daily Tablets DR Iraheta Adult 50+ Take 1 capsule by Unknown mouth daily Capsules Furosemide Take 60 mg (1 /2 Unknown 40mg Tablets tabs) by mouth every day Pregabalin 1 by mouth three Unknown 25mg [...] as needed for M.D. Tablets pain Spironolactone Take 1 tablet by Estrada Richmond, 100mg mouth every day M.D. Tablets Mirtazapine take 1 tab at Estrada Richmond, 30mg bedtime M.D. Tablets Lactulose Take 30 ml by mouth Estrada Richmond, 10GM/15ML every 4 hours as M.D. Solution needed, titrate to 2-3 BMs per day [...] Result H/L Range Note Comp Metabolic 08/05/2019 [facility] Sodium 133 mmol/L Low 135 -[address] [place] [address] [phone] Potassium 3.7 mmol/L Normal 3.5-5.0 Chloride 102 [...] Egfr 110.3 >60 1 Laboratory test 08/05/2019 [facility] Magnesium 2.0 mg/dL Normal 1.9-2.[address] [place] [address] [phone] C Reactive Protein 63.08 mg/L High <8.01 CBC Auto 08/05/2019 [facility] White Blood 4.2 10^3/uL Normal 3.5-10.[address] [place] [address] [phone] Red Blood Count 3.50 10^6/uL Low 3.70-4.87 [...] dialysis) Procedures Date Code Description Status 07/14/2019 30620 EKG, Interpretation Only Completed 07/12/2019 59494 ECHO Transthorasic Realtime 2D W Doppler & Color Flow Hosp Completed Medical Devices Description No Information Available Encounters Type Date Location Provider Dx Diagnosis Office Visit 07/18/2019 [facility] Dulce Maria Jacques, I05.9 Rheumatic mitral 10:52a nithya Snyder MD valve disease, Hospitalists unspecified R21 Rash and other nonspecific skin eruption F41.8 Other specified anxiety disorders Office Visit 07/17/[address] 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 K70.30 Alcoholic cirrhosis of liver without ascites E11.9 Type 2 diabetes mellitus without complications Office [facility]9 Rheumatic mitral Assnithya granados MD valve disease, Hospitalists unspecified R21 Rash and other nonspecific skin eruption F41.8 Other specified anxiety disorders Office [facility] Rheumatic mitral Assnithya granados MD valve disease, Hospitalists unspecified B95.61 Methicillin suscep staph infct causing dis classd elswhr F41.8 Other specified anxiety disorders Office Visit 07[facility]15[facility]2019 10[facility] I[facility].9 Rheumatic mitral Assnithya granados MD valve disease, Hospitalists unspecified R21 Rash and other nonspecific skin eruption F41.8 Other specified anxiety disorders Office Visit 07/15/[address] 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 K70.30 Alcoholic cirrhosis of liver without ascites E11.9 Type 2 diabetes mellitus without complications Office Visit 07/14[facility]2019 10[facility] I05.9 Rheumatic mitral Assocnithya MD valve disease, Hospitalists unspecified F41.8 Other specified anxiety disorders R21 Rash and other nonspecific skin eruption Office Visit 07/13/2019 [facility] Margaret Anuja, E87.1 Hypo- osmolality and 10:46a Assoc,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 TECHNICIAN hyponatremia Hospitalists B95.61 Methicillin suscep staph infct causing dis classd elswhr 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 R23.8 Other skin changes Office Visit 07/12/2019 [facility] Mattehw A41.01 Sepsis due to 10:45a Assoc,pc MD Leslie Methicillin Hospitalists susceptible Staphylococcus aureus D64.9 Anemia, unspecified E11.9 Type 2 diabetes mellitus without complications 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 M25.552 Pain in left hip E87.1 Hypo-osmolality and hyponatremia Office Visit 07/12/2019 8:43a [facility] M25.552 Pain in Infectious Alvarado, COMMUNITY PLANNING TECHNICIAN left hip Diseases R78.81 Bacteremia B95.7 Oth staphylococcus as the cause of diseases classd elswhr M54.2 Cervicalgia K70.30 Alcoholic cirrhosis of liver without ascites Office Visit 07/12/2019 12:14p [facility] Amparo Rothman, M25.552 Pain in left at [place] M.DVarsha hip 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 M16.12 Unilateral primary osteoarthritis, left hip Office Visit 07/11/2019 10:45a [facility] Millicent Villar, M25.552 Pain in Assoc,nithya Diego left hip Hospitalists 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 headache, Hospitalists unspecified, intractable G89.4 Chronic pain syndrome K70.30 Alcoholic cirrhosis of liver without ascites E11.9 Type 2 diabetes mellitus without complications G25.81 Restless legs syndrome Office Visit 02/24/2019 9:06a [facility] ,pc Rosenda Thomas DO R51 Headache Hospitalists G89.4 Chronic pain syndrome G25.81 Restless legs syndrome Z79.891 rn long term care (current) use of opiate analgesic Office Visit 02/19/2019 8:30a [facility] Franny Peng L97.828 Non- prs chronic Center [facility] MARGUERITE Alvarado ulcer oth prt l low leg with oth severity L97.818 Non-prs chronic ulcer oth prt r low leg with oth severity E11.622 Type 2 diabetes mellitus with other skin ulcer I87.2 Venous insufficiency (chronic) (peripheral) E66.9 Obesity, unspecified Z68.36 Body mass index (BMI) 36.0-36.9, adult Office Visit 02/18/2019 9:05a [facility] K72.90 Hepatic failure, Assoc,nithya Chaudhry M.D. [...] in left hip Franny Alvarado NP 08/07/2019 K70.30 Alcoholic cirrhosis of liver without Franny Alvarado NP ascites 08/07/2019 Z79.2 long-term (current) use of Franny Alvarado NP antibiotics 07/19/2019 A41.01 Sepsis due to Methicillin susceptible [...] 07/17/2019 I33.0 Acute and subacute infective Franny Winezeblaaminah Alvarado, COMMUNITY PLANNING TECHNICIAN endocarditis 07/17/2019 R21 Rash and other nonspecific skin Dulce Maria Jacques MD eruption 07/17/2019 M87.052 Idiopathic aseptic necrosis of left Franny Winkleblack Alvarado, COMMUNITY PLANNING TECHNICIAN femur 07/17/2019 F41.8 Other specified anxiety disorders Dulce Maria Jacques MD 07/17/2019 K70.30 Alcoholic cirrhosis of liver without Franny Franciscokleblaaminah Alvarado, COMMUNITY PLANNING TECHNICIAN ascites 07/17/2019 E11.9 Type 2 diabetes mellitus without Franny Ginette Alvarado, COMMUNITY PLANNING TECHNICIAN complications 07/16/2019 I05.9 Rheumatic mitral valve disease, Dulce Maria Jacques MD unspecified 07/16/2019 B95.61 Methicillin susceptible Dulce Maria Jacques MD Staphylococcus aureus infection as the cause of diseases classified elsewhere 07/16/2019 F41.8 Other specified anxiety disorders Dulce Maria Jacques MD 07/15/2019 I05.9 Rheumatic mitral valve disease, Dulce Maria Jacques MD unspecified 07/15/2019 I33.0 Acute and subacute infective Franny Epifanioeblaaminah Alvarado, COMMUNITY PLANNING TECHNICIAN endocarditis 07/15/2019 R21 Rash and other nonspecific skin Dulce Maria Jacques MD eruption 07/15/2019 M87.052 Idiopathic aseptic necrosis of left Franny Winkleblack Alvarado, COMMUNITY PLANNING TECHNICIAN femur 07/15/2019 F41.8 Other specified anxiety disorders Dulce Maria Jacques MD 07/15/2019 K70.30 Alcoholic cirrhosis of liver without Franny Klarissalaaminah Alvarado, COMMUNITY PLANNING TECHNICIAN ascites 07/15/2019 E11.9 Type 2 diabetes mellitus without Franny Ginette Alvarado, COMMUNITY PLANNING TECHNICIAN complications 07/14/2019 R40.3 Persistent vegetative state Helder Queen M.D. 07/14/2019 I05.9 Rheumatic mitral valve disease, Dulce Maria Jacques MD unspecified 07/14/2019 F41.8 Other specified anxiety disorders Dulce Maria Jacques MD 07/14/2019 R21 Rash and other nonspecific skin Dulce Maria Jacques MD eruption 07/13/2019 E87.1 Hypo-osmolality and hyponatremia Margaret Anuja, COMMUNITY PLANNING TECHNICIAN 07/13/2019 B95.61 Methicillin susceptible Margaret Anuja, COMMUNITY PLANNING TECHNICIAN Staphylococcus aureus infection as the cause of diseases classified elsewhere 07/13/2019 M87.052 Idiopathic aseptic necrosis of left Margaret Anuja, COMMUNITY PLANNING TECHNICIAN femur 07/13/2019 R23.8 Other skin changes Margaret Anuja, COMMUNITY PLANNING TECHNICIAN 07/12/2019 A41.01 Sepsis due to Methicillin susceptible [...] 07/11/2019 M25.552 Pain in left hip Millicent Jian, M.D. 07/11/2019 M87.052 Idiopathic aseptic necrosis of [...] Thomas, 02/24/2019 G25.81 Restless legs syndrome Rosenda Thmoas, DO 02/24/2019 Z79.891 rn long term care (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 Body mass index (BMI) 36.0-36.9, Franny Alvarado COMMUNITY PLANNING TECHNICIAN adult 02/18/2019 K72.90 Hepatic failure, unspecified without Galina Chaudhry M.D. coma 02/18/2019 E11.9 Type 2 diabetes mellitus without Galina Chaudhry M.D. complications 02/18/2019 G25.81 Restless legs syndrome Galina Chaudhry M.D. 02/18/2019 G89.29 Other chronic pain Galina Chaudhry M.D. Plan of Treatment Future Appointment(s):08/15/2019 8:30 am - Marcelino Murillo MD at [facility]08/07/2019 - Franny Alvarado, NPI33.0 Acute and subacute infective endocarditisNew Orders:Echocardiogram, Ordered: Follow up:2 zxybmD36.61 Methicillin suscep staph infct causing dis classd yqfmzeN32.552 Pain in left hipK70.30 Alcoholic cirrhosis of liver without wccxifoT61.2 rn long term care (current) use of antibiotics Functional Status Description No Information Available Mental Status Description No Information Available Referrals Description No Information Available
--- OUTSIDE RECORDS SUMMARY | 2019-08-13 12:02 | XMS REPORT | Continuity of Care Document ---
:1950 External Reference #:[id number] Author Name Estrada Richmond M.D. (transmitted by agent of provider Shagufta Santillan) Address [address] [place] [id number] Care Team Providers Name Role Phone Justin Suarez MD - Care Team Information Moisture Machine Tender [phone] [place] [facility] [place] Care Team Information Moisture Machine Tender [phone] [facility] Care Team Information Moisture Machine Tender [phone] Marcelino Murillo - Neurology Care Team Information Moisture Machine Tender [phone] Problems Active Problems Provider Date Cirrhosis of [...] Monitoring System code e11.9 w/Device Kit Onetouch VerGoldpocket Interactive Use To Test Twice 200units Estrada Richmond, 03/12/2018 Strips Daily as Directed M.D. Whole Opticstouch Ultrasoft 2 every day and 100units Estrada [...] po qd Veronica R. 08/21/2014 200Unit Storm, CRANE ENGINEER-C Capsules Slow-Mag 1 by mouth every 30tabs [...] Tablets Oxycodone HCL take one tablet 90tabs Estrdaa Richmond, 10mg by mouth every 4 M.D. [...] CPT Code Status Date Vaccine Lot # [id number] Given 06/08/2016 Hep B Vaccine Adult, 3 Dose age >20 yrs [id number] 53849 Given 06/08/2016 Hepatitis A, Adult [id number] 00259 Given 02/11/2016 Hep B Vaccine Adult, 3 Dose age >20 yrs [id number] 25369 Given 11/03/2015 Hep B Vaccine Adult, 3 Dose age >20 yrs [id number] 16887 Given 11/03/2015 Prevnar-13 Pneumococcal Conjugate Vaccine [id number] 61607 Given 11/03/2015 Hepatitis A, Adult [id number] 16218 Given 03/04/2015 Influenza Virus Vaccine, Quadrivalent, 3 Yr > [id number] Quad, Preserv Free 54354 Given 04/28/2014 Pneumovax 23 (PPSV23) 65+ years or high risk 2 to 64 year old 81426 Given 12/19/2012 Zoster Vaccine [id number] 77955 Given 05/17/2012 Tdap (Adacel) [id number] 85332 Given 08/08/2000 DT (Adult) 72881 Refused 01/23/2019 Influenza Virus Vaccine, Quadrivalent, 3 Yr > Quad , Preserv Free 70342 Refused 08/08/2017 Influenza Virus Vaccine, Quadrivalent, 3 Yr > Quad , Preserv Free 44059 Refused 06/06/2017 Influenza Virus Vaccine, Quadrivalent, 3 Yr > Quad , Preserv Free 34523 Refused 01/27/2017 [place] [address] Refused 07/18/2016 Influenza Virus Vaccine, Quadrivalent, 3 Yr > Quad , Preserv Free 76526 Refused 02/16/2012 Influenza Vaccine-Preservative Free 3 Yrs [...] Result H/L Range Note CBC Auto 08/05/2019 [facility] White Blood 4.2 10^3/ uL Normal 3.5-10.8 Diff [phone] Count Red Blood Count 3.50 10^6/uL Low [...] Blood Cells % 0.0 Comp Metabolic 08/05/2019 [facility] Sodium 133 mmol/ L Low 135-145 Panel [phone] Potassium 3.7 mmol/L Normal 3.5-5.0 Chloride 102 [...] Egfr 110.3 >60 1 Laboratory test 08/05/2019 [facility] Magnesium 2.0 mg/dL Normal 1.9-2.7 finding [phone] C Reactive Protein 63.08 mg/L High <8.01 Laboratory test 08/04/2019 [facility] Ammonia 58 mcmol/L High 16-53 finding [phone] CBC Auto Diff 08/04/2019 [facility] White Blood 4.1 10^3/uL Normal 3.5-10.8 [phone] Count Red Blood Count 3.52 10^6/uL Low [...] Blood Cells % 0.2 Comp Metabolic 08/04/2019 [facility] Sodium 131 mmol/ L Low 135-145 Panel [phone] Potassium 3.9 mmol/L Normal 3.5-5.0 Chloride 103 [...] Egfr 103.0 >60 2 Laboratory test 08/04/2019 [facility] Magnesium 1.7 mg/dL Low 1.9-2.7 finding [phone] CBC Auto Diff 07/11/2019 [facility] White Blood 11.5 High 3.5-10.8 [phone] Count 10^3/uL Red Blood Count 4.07 10^6/uL [...] Blood Cells % 0.0 Comp Metabolic 07/11/2019 [facility] Sodium 125 mmol/ L Low 135-145 Panel [phone] Potassium 4.0 mmol/L Normal 3.5-5.0 Chloride 97 [...] >60 Egfr 142.8 >60 3 Laboratory 07/11/2019 [facility] C Reactive 237.61 mg /L High <8.01 test finding [phone] Protein Drug Screen 06/13/2019 [facility] Urine None None Urine Pain [phone] Hydrocodone Detected Detect Clinic Screen Urine Oxycodone [...] Detected None Detect 7 Comp Metabolic 04/12/2019 [facility] Sodium 134 mmol/ L Low 135-145 Panel [phone] Potassium 3.6 mmol/L Normal 3.5-5.0 Chloride 104 [...] Egfr 125.9 >60 8 CBC Auto 04/12/2019 [facility] White Blood 4.7 10^3/ uL Normal 3.5-10.8 Diff [phone] Count Red Blood Count 3.99 10^6/uL Normal [...] Red Blood Cells % 0.3 Comp Metabolic 02/24/2019 [facility] Sodium 132 mmol/ L Low 135-145 Panel [phone] Potassium 3.6 mmol/L Normal 3.5-5.0 Chloride 104 [...] 194 U/L High 34-104 Laboratory test 02/24/2019 [facility] Troponin-I (TnI ) 0.00 ng/mL <0.04 10 finding [phone] Acetaminophen < 15 g/mL 11 Alcohol < 10 mg/dL Normal <10 Salicylate < 2.50 mg/dL <30 Laboratory test 02/24/2019 [facility] Lactic Acid 1.4 mmol/L Normal 0.5-2.0 12 finding [phone] Ammonia 58 mcmol/L High 16-53 CBC Auto 02/24/2019 [facility] White Blood 9.1 10^3/ uL Normal 3.5-10.8 Diff [phone] Count Red Blood Count 4.02 10^6/uL Normal [...] Cells % 0.1 Urine Culture And 02/17/2019 [facility] Urine Culture SEE RESULT 13 Sensitivities [phone] BELOW Urinalysis Profile 02/17/2019 [facility] Urine Color Yellow [phone] Urine Appearance Clear Urine Specific [place] 1.012 Normal 1.010-1.030 Urine pH 6.0 Normal [...] Cell Present Abnormal Absent Urine Drug 02/17/2019 [facility] Urine None Detected None Detect SCR ED & [phone] Amphetamine Pain Clinic Screen Urine Barbiturates Screen None Detected None Detect Urine Benzodiazepine Screen None Detected None Detect Urine Cannabinoids Screen None Detected None Detect Urine Opiates Screen None Detected None Detect Urine Phencyclidine Screen None Detected None Detect 14 Urine Cocaine Screen None Detected None Detect Laboratory test 02/17/2019 [facility] Ammonia 86 mcmol/L High 16-53 finding [phone] Inr/Protime 02/17/2019 [facility] Inr 1.41 High 0.82-1.09 15 [phone] Laboratory test 02/17/2019 [facility] Lactic Acid 1.3 mmol/L Normal 0.5-2.0 16 finding [phone] CBC Auto Diff 02/17/2019 [facility] White Blood 6.1 10^3/uL Normal 3.5-10.8 [phone] Count Red Blood Count 3.71 10^6/uL Normal [...] 5 Kidney failure <15 (or dialysis) 9 Because ethnic data is not always [...] 5 Kidney failure <15 (or dialysis) 10 Troponin-I testing on Plasma Separator Tubes (PST) has a known false positive rate of 0.20-0.40%. All positive troponins reflex immediately to secondary confirmatory testing. Using the Adsame DxI 800 Access Immunoassay systems, the 99th percentile upper reference limit was demonstrated to be < 0.03 ng/mL. 11 Therapeutic concentration: <50 ug/mL Toxic concentration: >120 ug/mL 12 [facility] Severe Sepsis and Septic Shock Management Bundle Measure requires all lactic acids initially measuring >2.0 mmol/L be repeated. 13 SEE RESULT BELOW Name: ISAIAS SALEH : [address]: Cornelia Montano DO Acct: [id number] Unit: [id number] AGE: 68 Location: [place] [address] Re02/18/19 SEX: F Status: ADM Ana María SPEC: [id number] DENITA: 02/17/19 [facility] DR: Trish Michaels MD REQ: [id number] RECD: 02/17/19 STATUS: COMP OTHR DR: Estrada Richmond MD _ SOURCE: URINE SPDESC: ORDERED: Urine Culture Procedure Result Reported Site Urine Culture Final 02/19/19- 0855 ML No Growth (<1,000 CFU/mL) * ML - Main Lab . END OF REPORT DEPARTMENT OF PATHOLOGY, [address] [place] [address] Miguel Angel Michel M.D. Director [facility] # [id number] 14 The urine specimen was tested at the listed cutoffs: Drug class test level (ng/mL) Amphetamines 500 Barbiturates 200 Benzodiazepine metabolites 200 Cocaine metabolites 150 Cannabinoids 50 Opiates 300 Pcp 25 Specimen was received without chain of custody. Results should be used for medical purposes only. 15 Standard intensity warfarin therapeutic range: 2.0-3.0 High intensity warfarin therapeutic range: 2.5-3.5 16 [facility] Severe Sepsis and Septic Shock Management Bundle [...] Estrada Richmond M.D. complications Plan of Treatment No Information Available Functional Status Functional Condition Comment Date Status Glasses Active Mental Status Description No Information Available Referrals Refer to Reason for Referral Status Appt Date Amparo Rothman REFERRAL TO: Dr. Rothman for avascular necrosis Created diagnosis. PLEASE SEND CONSULT NOTE TO [facility] @ [phone]. [address] [place] [address] [phone] [facility] [place] TO: [facility] for Left Sciatica Created Pain PLEASE CONTACT PT TO SCHEDULE APPT. PLEASE FAX APPOINTMENT DATE/TIME TO [facility] @ [phone]. PLEASE SEND CONSULT NOTE TO [facility] @ [phone]. [address] [place] [address] [phone]
--- OUTSIDE RECORDS SUMMARY | 2019-08-13 12:02 | XMS REPORT | Continuity of Care Document ---
:1950 External Reference #:[id number] Author Name Millicent Villar M.D. (transmitted by agent of provider July) Address [address] [place] [address] Care Team Providers Name Role Phone Estrada Richmond M.D. - Family Medicine Care Team Information Box [place] [phone] Problems Active Problems Provider Date Lumbar radiculopathy [...] Oxygen Patient would like [place]iko [place] 02/27/2019 [facility] [place] MARGUERITE Chong supplemental oxygen against [...] Result H/L Range Note Comp Metabolic 08/05/2019 [facility] Sodium 133 mmol/L Low 135 -[address] [place] [address] [phone] Potassium 3.7 mmol/L Normal 3.5-5.0 Chloride 102 [...] Egfr 110.3 >60 1 Laboratory test 08/05/2019 [facility] Magnesium 2.0 mg/dL Normal 1.9-2.[address] [place] [address] [phone] C Reactive Protein 63.08 mg/L High <8.01 CBC Auto 08/05/2019 [facility] White Blood 4.2 10^3/uL Normal 3.5-10.[address] [place] [address] [phone] Red Blood Count 3.50 10^6/uL Low 3.70-4.87 [...] dialysis) Procedures Date Code Description Status 07/14/2019 05375 EKG, Interpretation Only Completed 07/12/2019 94806 ECHO Transthorasic Realtime 2D W Doppler & Color Flow Hosp Completed Medical Devices Description No Information Available Encounters Type Date Location Provider Dx Diagnosis 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 K70.30 Alcoholic cirrhosis of liver without ascites E11.9 Type 2 diabetes mellitus without complications Office Visit 07/17/2019 10:51a [facility] I05.9 Rheumatic mitral Assoc,nithya Jacques MD valve disease, Hospitalists unspecified R21 Rash and other nonspecific skin eruption F41.8 Other specified anxiety disorders Office Visit 07/16/2019 10:50a [facility] I05.9 Rheumatic mitral Assocnithya MD valve disease, Hospitalists unspecified B95.61 Methicillin suscep staph infct causing dis classd elswhr F41.8 Other specified anxiety disorders 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 K70.30 Alcoholic cirrhosis of liver without ascites E11.9 Type 2 diabetes mellitus without complications Office Visit 07/14/2019 10:47a [facility] I05.9 Rheumatic mitral Assoc,nithya Jacques MD valve disease, Hospitalists unspecified F41.8 Other specified anxiety disorders R21 Rash and other nonspecific skin eruption Office Visit 07/13/2019 [facility] Margaret Anuja, E87.1 Hypo- osmolality and 10:46a Assoc,nithya ESCALATION ENGINEER hyponatremia Hospitalists B95.61 Methicillin suscep staph infct causing dis classd elswhr 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 R23.8 Other skin changes Office Visit 07/12/2019 [facility] A41.01 Sepsis due to 10:45a Assoc,nithya Nelson MD Methicillin Hospitalists susceptible Staphylococcus aureus D64.9 Anemia, unspecified E11.9 Type 2 diabetes mellitus without complications 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 M25.552 Pain in left hip E87.1 Hypo-osmolality and hyponatremia Office Visit 07/12/2019 8:43a [facility] Franny Peng M25.552 Pain in Infectious Alvarado, ESCALATION ENGINEER left hip Diseases R78.81 Bacteremia B95.7 Oth staphylococcus as the cause of diseases classd elswhr M54.2 Cervicalgia K70.30 Alcoholic cirrhosis of liver without ascites Office Visit 07/12/2019 12:14p [facility] Amparo Rothman, M25.552 Pain in left at [place] M.DVarsha hip 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 unspecified Hospitalists without coma E11.9 Type 2 diabetes mellitus without complications G25.81 Restless legs syndrome G89.29 Other chronic pain Assessments Date Code Description Provider 07/19/2019 A41.01 Sepsis due to Methicillin susceptible Dluce Maria Jacques MD Staphylococcus aureus 07/19/2019 I05.9 [...] 07/17/2019 E11.9 Type 2 diabetes mellitus without Frannybasilia Peng Alvarado, ESCALATION ENGINEER complications 07/16/2019 I05.9 Rheumatic mitral valve disease, Dulce Maria Jacques MD unspecified 07/16/2019 B95.61 Methicillin susceptible Dulce Maria Jacques MD Staphylococcus aureus infection as the cause of diseases classified elsewhere 07/16/2019 F41.8 Other specified anxiety disorders Dulce Maria Jacques MD 07/15/2019 I05.9 Rheumatic mitral valve disease, Dulce Maria Jacques MD unspecified 07/15/2019 I33.0 Acute and subacute infective Franny Quevedoaminah Alvarado, ESCALATION ENGINEER endocarditis 07/15/2019 R21 Rash and other nonspecific skin Dulce Maria Jacques MD eruption 07/15/2019 M87.052 Idiopathic aseptic necrosis of left Franny Ginette Alvarado, ESCALATION ENGINEER femur 07/15/2019 F41.8 Other specified anxiety disorders Dulce Maria Jacques MD 07/15/2019 K70.30 Alcoholic cirrhosis of liver without Frannybasilia Alvarado, ESCALATION ENGINEER ascites 07/15/2019 E11.9 Type 2 diabetes mellitus without Frannybasilia Alvarado, ESCALATION ENGINEER complications 07/14/2019 R40.3 Persistent vegetative state Helder Queen M.D. 07/14/2019 I05.9 Rheumatic mitral valve disease, Dulce Maria Jacques MD unspecified 07/14/2019 F41.8 Other specified anxiety disorders Dulce Maria Jacques MD 07/14/2019 R21 Rash and other nonspecific skin Dulce Maria Jacques MD eruption 07/13/2019 E87.1 Hypo-osmolality and hyponatremia Margaret Anuja, ESCALATION ENGINEER 07/13/2019 B95.61 Methicillin susceptible Margaret Anuja, ESCALATION ENGINEER Staphylococcus aureus infection as the cause of diseases classified elsewhere 07/13/2019 M87.052 Idiopathic aseptic necrosis of left Margaret Anuja, ESCALATION ENGINEER femur 07/13/2019 R23.8 Other skin changes Margaret Anuja, ESCALATION ENGINEER 07/12/2019 A41.01 Sepsis due to Methicillin susceptible [...] Maurilio Leong M.D. 02/24/2019 R51 Headache Rosenda William, DO 02/24/2019 G89.4 Chronic pain syndrome Rosenda Chaoban, DO 02/24/2019 G25.81 Restless legs syndrome Rosenda William, DO 02/24/2019 Z79.891 terminal computer operator (current) use of opiate Rosenda William, DO [...] pm - Franny Alvarado NP at [facility] Zolqzfwm39/21/2019 - Peggy Chong NPG47.33 Obstructive sleep apnea [...]
--- OUTSIDE RECORDS SUMMARY | 2019-08-13 12:02 | XMS REPORT ---
:1950 Author Organization [facility] Care Team Providers Name Role Phone Unavailable Unavailable Unavailable Problems Condition Condition Condition Status Onset Resolution Last Treating Comments Name Details Category Date Date Treatment Clinician Date Other Other Diagnosis Active Angela cirrhosis cirrhosis 4-15 Wendela of liver of liver [id number] Allergies, Adverse Reactions, Alerts Allergy Name Allergy Status Severity Reaction(s) Onset Inactive Treating Comments Type Date Date Clinician NSAIDS Allergen Active Unknown Reaction 2017-04 [place] (Non-Steroid Group Unknown 2-28 Donovan al Anti-Inflamm atory Drug) Penicillins Allergen Active Unknown Reaction 2017-04 [place] Group Unknown 2-28 Donovan Sulfa Allergen Active Unknown Reaction 2017-04 [place] (Sulfonamide Group Unknown 2-28 Donovan Antibiotics) morphine Base Active Unknown Reaction 2017-04 [place] Ingredient Unknown 2-28 Donovan aspirin Base Active Unknown Reaction 2017-04 [place] Ingredient Unknown 2-28 Donovan erythromycin Base Active Unknown Reaction 2017-04 [place] base Ingredient Unknown 2-28 Donovan sulfamethoxa Base Active Unknown Reaction 2017-04 [place] zole Ingredient Unknown 2-28 Donovan trimethoprim Base Active Unknown Reaction 2017-04 [place] Ingredient Unknown 2-28 Donovan vancomycin Base Active Unknown Reaction 2017-04 [place] Ingredient Unknown 2-28 Donovan meloxicam Base Active Unknown Reaction 2017-04 [place] Ingredient Unknown 2-28 Donovan Medications Ordered Filled Start Stop Current Ordering Indication Dosage Frequency Signature Comments Components Medication Medication Date Date Medication? Clinician (SIG) Name Name No Known No Known No None None None Medications Medications For This For This Patient Patient Procedures This patient has no known procedures. Results This patient has no known results.
--- OUTSIDE RECORDS SUMMARY | 2019-08-13 12:02 | XMS REPORT ---
:1950 Author Organization [facility] Care Team Providers Name Role Phone Unavailable Unavailable Unavailable Problems Condition Condition Condition Status Onset Resolution Last Treating Comments Name Details Category Date Date Treatment Clinician Date Other Other Diagnosis Active Angela cirrhosis cirrhosis 4-15 [place] of liver of liver [id number] Allergies, Adverse Reactions, Alerts Allergy Name Allergy Status Severity Reaction(s) Onset Inactive Treating Comments Type Date Date Clinician NSAIDS Allergen Active Unknown Reaction 2017-04 [place] (Non-Steroid Group Unknown 2-28 Donovan al Anti-Inflamm atory Drug) Penicillins Allergen Active Unknown Reaction 2017-04 [place] Group Unknown 2-28 Donovan Sulfa Allergen Active Unknown Reaction 2017-04 [place] (Sulfonamide Group Unknown 2-28 Donovan Antibiotics) morphine Base Active Unknown Reaction 2017-04 [place] Ingredient Unknown 2-28 Donovan aspirin Base Active Unknown Reaction 2017-04 [place] Ingredient Unknown 2-28 Donovan erythromycin Base Active Unknown Reaction 2017-04 [place] base Ingredient Unknown 2-28 Donovan sulfamethoxa Base Active Unknown Reaction 2017-04 [place] zole Ingredient Unknown 2-28 Donovan trimethoprim Base Active Unknown Reaction 2017-04 [place] Ingredient Unknown 2-28 Donovan vancomycin Base Active Unknown Reaction 2017-04 [place] Ingredient Unknown 2-28 Donovan meloxicam Base Active Unknown Reaction 2017-04 [place] Ingredient Unknown 2-28 Donovan Medications Ordered Filled Start Stop Current Ordering Indication Dosage Frequency Signature Comments Components Medication Medication Date Date Medication? Clinician (SIG) Name Name No Known No Known No None None None Medications Medications For This For This Patient Patient Procedures This patient has no known procedures. Results This patient has no known results.
--- OUTSIDE RECORDS SUMMARY | 2019-08-13 12:02 | XMS REPORT ---
:1950 Author Organization [facility] Care Team Providers Name Role Phone Unavailable Unavailable Unavailable Problems Condition Condition Condition Status Onset Resolution Last Treating Comments Name Details Category Date Date Treatment Clinician Date Other Other Diagnosis Active Angela cirrhosis cirrhosis 4-15 Wendela of liver of liver [id number] Allergies, Adverse Reactions, Alerts Allergy Name Allergy Status Severity Reaction(s) Onset Inactive Treating Comments Type Date Date Clinician NSAIDS Allergen Active Unknown Reaction 2017-04 [place] (Non-Steroid Group Unknown 2-28 Donovan al Anti-Inflamm atory Drug) Penicillins Allergen Active Unknown Reaction 2017-04 [place] Group Unknown 2-28 Donovan Sulfa Allergen Active Unknown Reaction 2017-04 [place] (Sulfonamide Group Unknown 2-28 Donovan Antibiotics) morphine Base Active Unknown Reaction 2017-04 [place] Ingredient Unknown 2-28 Donovan aspirin Base Active Unknown Reaction 2017-04 [place] Ingredient Unknown 2-28 Donovan erythromycin Base Active Unknown Reaction 2017-04 [place] base Ingredient Unknown 2-28 Donovan sulfamethoxa Base Active Unknown Reaction 2017-04 [place] zole Ingredient Unknown 2-28 Donovan trimethoprim Base Active Unknown Reaction 2017-04 [place] Ingredient Unknown 2-28 Donovan vancomycin Base Active Unknown Reaction 2017-04 [place] Ingredient Unknown 2-28 Donovan meloxicam Base Active Unknown Reaction 2017-04 [place] Ingredient Unknown 2-28 Donovan Medications Ordered Filled Start Stop Current Ordering Indication Dosage Frequency Signature Comments Components Medication Medication Date Date Medication? Clinician (SIG) Name Name No Known No Known No None None None Medications Medications For This For This Patient Patient Procedures This patient has no known procedures. Results This patient has no known results.
[2019-08-13] MEDS ORDERED: rOPINIRole TAB* 1 MG PO ONE (12:14)
[2019-08-13 13:01] LABS: ABS Basophils 0.1 10^3/ul (0-0.2); ABS Eosinophils 0.2 10^3/ul (0-0.6); ABS Lymphocytes 0.9 10^3/ul (1.0-4.8); ABS Monocytes 0.7 10^3/ul (0-0.8); ABS Neutrophils 3.1 10^3/ul (1.5-7.7); Eosinophil % 3.2 %; Hematocrit 33 % (35-47); Hemoglobin 10.9 g/dL (12.0-16.0); Lymphocyte % 18.2 %; Mean Corpuscular HGB Conc 33 g/dL (31-36); Mean Corpuscular Hemoglobin 29 pg (27-31); Mean Corpuscular Volume 89 fL (80-97); Mean Platelet Volume 7.1 fL (7.4-10.4); Nucleated Red Blood Cells % 0.1; Platelet Count 161 10^3/uL (150-450); Red Blood Count 3.72 10^6 /uL (3.70-4.87); Red Cell Distribution Width 20 % (10-15)
[2019-08-13 13:18] LABS: Albumin 2.8 g/dL (3.2-5.2); Albumin/Globulin Ratio 0.6 (1-3); BUN/Creatinine Ratio 24.6 (8-20); Calcium 8.7 mg/dL (8.6-10.3); EGFR African American 128.4 (>60); EGFR Non-African American 106.1 (>60); Magnesium 1.9 mg/dL (1.9-2.7); Potassium 4.1 mmol/L (3.5-5.0); Total Bilirubin 0.9 mg/dL (0.2-1.0); Total Protein 7.8 g/dL (6.4-8.9)
[2019-08-13] MEDS ORDERED: oxyCODONE TAB* 5 MG TAB PO ONE ×2 (14:07→15:04)
[2019-08-13] MEDS ORDERED: ceFAZolin 2 GM PREMIX in ORs 2 GM/50 ML BAG IVPB SCH (16:00)
[2019-08-13] MEDS ORDERED: fentaNYL PATCH 25 MCG/HR TRANSDERM SCH ×3 (16:00→20:00)
[2019-08-13 17:02] LABS: Urine Appearance Clear; Urine Bilirubin Negative (Negative); Urine Blood Negative (Negative); Urine Color Yellow; Urine Glucose Negative (Negative); Urine Ketones Negative (Negative); Urine Nitrite Negative (Negative); Urine Protein Negative (Negative); Urine Specific Gravity 1.003 (1.010-1.030); Urine Urobilinogen Negative (Negative)
--- NOTE | 2019-08-13 17:41 | CONSULT ---
Consult Consult: August 13, 2019 INPATIENT PAIN CONSULTATION June Syed is a 68 year old female. She has a medical history significant for alcohol abuse. She stopped drinking 6 years ago for health reasons. She has cirrhosis of the liver and ascites. She had a hospital admission about a month ago. She was diagnosed with MSSA endocarditis and is on nursing home antibiotics for that. The etiology of the endocarditis is unknown, though the patient picks frequently at her skin and has multiple sores as a result. During the June admissiion, she had an aspiration of her left hip which was negative, as well as a U/A which was also negative. She had an MRI of her left hip c/w AVN. She has had low back pain for many years and has been a patient in the pain clinic since 2017. She normally sees June Ng. Her usual medications for pain are Fentanyl transdermal patch 25 mcg/hr as well as oxycodone 10 mg tablets TID and Lyrica 25 mg TID. Over the past two weeks or so, she has been complaining of more pain in her left hip. She was in the ER her on August 03 and for tremors. However she states she has been having more difficulty with pain. Came to ER today with severe pain in hip and left leg. Was admitted. I am asked to see her. Per notes, patient has been falling and increasingly confused at home. Ammonia level in ER was 66 PAST MEDICAL HISTORY: Cirrhosis, Ascites, MSSA Endocarditis. Esophogeal Varices. Work related back injury with lumbar fusion in 1992. Allergies Allergy/AdvReac Type Severity Reaction Status Date / Time morphine Allergy Severe Anaphylatic Verified 08/13/19 11:16 Shock vancomycin Allergy Intermediate Rash And Verified 08/13/19 11:16 Itching lorazepam [From Ativan] Allergy See Comment Verified 08/13/19 11:16 meloxicam Allergy Rash Verified 08/13/19 11:16 Penicillins Allergy Swelling Verified 08/13/19 11:16 sulfamethoxazole Allergy Unknown Verified 08/13/19 11:16 [From Bactrim] Reaction Details trimethoprim [From Bactrim] Allergy Unknown Verified 08/13/19 11:16 Reaction Details acetaminophen [From Tylenol] AdvReac Unknown Verified 08/13/19 11:16 Reaction Details aspirin AdvReac CIRRHOSIS Verified 04/21/20 11:16 erythromycin base AdvReac Vomiting Verified 08/13/19 11:16 NSAIDS (Non-Steroidal AdvReac CIRRHOSIS Verified 08/13/19 11:16 Anti-Inflamma Sulfa (Sulfonamide AdvReac GI Upset Verified 08/13/19 11:16 Antibiotics) Current Medications Baclofen (Lioresal Tab*) 10 mg PO BID [facility] Calcium Carbonate (Calcium Carbonate Tab*) 600 mg PO BID [facility] Cholecalciferol (Vitamin D Tab*) 2,000 units PO DAILY [facility] Fentanyl (Duragesic Patch 25 Mcg/Hr*) 25 mcg TRANSDERM Q72H [facility] Ferrous Sulfate (Ferrous Sulfate Tab*) 325 mg PO BID [facility] Furosemide (Lasix Tab*) 60 mg PO DAILY [facility] Gabapentin (Neurontin Cap(*)) 100 mg PO TID [facility] Last Admin: 08/13/19 15:39 Dose: 100 mg Heparin Sodium (Porcine) (Heparin Flush Picc/Ml/Cvc(*)) 1 ml FLUSH 0600,1800 [facility]; Protocol Cefazolin Sodium/Dextrose (Kefzol 2 Gm Premix In Ors(*)) 2 gm in 50 mls @ 100 mls/hr IVPB Q8H [facility] Lactulose (Lactulose*) 30 ml PO Q4HR PRN PRN Reason: CONSTIPATION Mirtazapine (Remeron Tab*) 30 mg PO BEDTIME [facility] Oxycodone HCl (Roxycodone Tab*) 10 mg PO Q4H PRN PRN Reason: PAIN - MODERATE Pantoprazole Sodium (Protonix Tab*) 40 mg PO DAILY [facility] Paroxetine HCl (Paxil Tab*) 40 mg PO DAILY [facility] Potassium Chloride (Klor Con Er Tab*) 20 meq PO TID [facility] Rifaximin (Xifaxan*) 550 mg PO BID [facility] Spironolactone (Aldactone Tab*) 100 mg PO DAILY [facility] Triamcinolone Acetonide (Triamcinolone 0.5% Cream*) 1 applic TOPICAL BID [facility] Vitamin E (Vitamin E Cap*) 200 units PO DAILY [facility] SOCIAL HISTORY: Non drinker, non smoker. Lives with daughter in a 2 story house Vital Signs Temp Pulse Resp BP Pulse Ox 98.1 F 100 16 104/78 98 08/13/19 17:02 08/13/19 17:02 08/13/19 17:02 08/13/19 17:02 08/13/19 17:02 EXAM: GENERAL: Moderate distress, screaming in pain, then quiet LUNGS: Mostly clear HEART: Reg rhythm ABDOMEN: Distended, protuberant EXTREMITIES: Dry skin on legs. Multiple sores from picking on legs. PICC in right arm. Left leg sore to touch anywhere NEUROLOGIC: Alert. Moves 4 extremities ASSESSMENT: 1. Left Hip Pain/AVN of left hip 2. Chronic Opioid Use 3. Cirrhosis with ascites PLAN: I will adjust her pain medications, but it is a little unclear what is driving her pain. She has AVN of hip, but left leg hurts wherever I touched it. She had an MRI of her lumbar spine as well in June with few findings to explain her pain. Given her liver failure, have to be cautious with meds. Will d /c gabapentin and resume Lyrica. I will follow
[2019-08-13] MEDS ORDERED: HYDROmorphone INJ* 0.5 MG/0.5 ML SYRINGE IV SLOW PU PRN (18:01)
[2019-08-13] MEDS: oxyCODONE TAB* 5 MG TAB PO PRN ×2 (18:04→22:56)
[2019-08-13] MEDS: ceFAZolin 2 GM PREMIX in ORs 2 GM/50 ML BAG IVPB SCH (19:21)
[2019-08-13] MEDS: fentaNYL Patch Check Q Shift 1 NOTE FOLLOW UP SCH ×2 (19:28)
[2019-08-13] MEDS ORDERED: fentaNYL PATCH 12 MCG/HR TRANSDERM SCH (20:00)
--- NOTE | 2019-08-13 20:03 | HP ---
CC: Dr. Richmond; Dr. Vincent* HISTORY AND PHYSICAL: DATE OF ADMISSION: 08/13/19 PROVIDER: Tamika Peña NP. PRIMARY CARE PROVIDER: Dr. Richmond. ATTENDING PHYSICIAN WHILE IN THE HOSPITAL: Dr. Millicent Villar* (dictated by Tamika Peña NP). CHIEF COMPLAINT: Left hip pain. HISTORY OF PRESENT ILLNESS: Ms. Syed is a 68-year-old female with a past medical history significant for alcoholic liver cirrhosis for which she quit drinking 6 years ago, avascular necrosis of the left hip for which she follows with Dr. Vincent, history of esophageal varices, chronic back pain, restless legs syndrome, history of a TIA and CVA, who presented to the emergency room with complaints of severe left hip pain and muscle spasms. The patient reports that her pain is no different then her chronic pain in the left hip, reports that it is in the same area as baseline. She denies fever ro chills. Denies chest pain or shortness of breath . Denies abd pain . The patient as we know has avascular necrosis of the left hip, but reports that the pain and muscle spasms are uncontrollable at home.So she presented to the emergency room for further evaluation. The patient was recently admitted to this hospital for left hip pain was seen by orthopedic services for which she has the hip aspirated for questionable septic arthritis, which culture did not show evidence of septic arthritis. She had MRI of the lumbar spine that did not show any evidence of abscess of osteomyelitis She was found to have MSSA bacteremia and Mitral valve vegetation for which she is currently on six weeks of IV cefazolin 2 grams every 8 hours. While in the emergency room, she had routine lab work drawn, which was essentially at her baseline. Given her uncontrolled pain and unable to care for herself at home, She was seen by social work and it was recommended that the patient be admitted shelter and will likely transition to [facility] bed tomorrow . PAST MEDICAL HISTORY: Significant for: 1. Alcoholic liver cirrhosis. 2. Esophageal varices, status post banding. 3. Chronic back pain. 4. Restless legs. 5. TIA. 6. CVA. 7. Avascular necrosis of the left hip. 8. Endocarditis, for which she is being treated with IV cefazolin 2 g t.i.d. 9. MSSA bacteremia. PAST SURGICAL HISTORY: 1. Hysterectomy. 2. Esophageal variceal banding. 3. Tonsillectomy. 4. Lumbar fusion. HOME MEDICATIONS: Include: 1. Rifaximin 550 mg b.i.d. 2. Oxycodone 10 mg p.o. q.4 hours p.r.n. 3. Fentanyl 25 mcg transdermal q.72 hours. 4. Zinc 50 mg p.o. b.i.d. 5. Vitamin E cap 200 units p.o. daily. 6. Triamcinolone cream, apply topically twice daily. 7. Spironolactone 100 mg p.o. daily. 8. Potassium 20 mEq p.o. t.i.d. 9. Pantoprazole 20 mg p.o. daily. 10. Paroxetine 40 mg p.o. daily. 11. Remeron 30 mg at bedtime. 12. Magnesium chloride (Slow-Mag) tab p.o. daily. 13. Lactulose 30 mL p.o. q.4 hours p.r.n. 14. Hydrocortisone cream 2.5% apply topically b.i.d. 15. Furosemide 60 mg p.o. daily. 16. Ferrous sulfate 325 mg p.o. b.i.d. 17. Vitamin D 2000 units p.o. daily. 18. Calcium 600 mg p.o. b.i.d. 19. Ocuvite 1 cap p.o. daily. 20. Baclofen 10 mg p.o. b.i.d. 21. Ammonium lactate 12% apply topically daily. 22. Fosamax 70 mg p.o. weekly. ALLERGIES: MORPHINE, VANCOMYCIN, LORAZEPAM, MELOXICAM, PENICILLIN, BACTRIM, TYLENOL, ASPIRIN, ERYTHROMYCIN, NSAIDS, and SULFA. FAMILY HISTORY: Mother with a history of diabetes. Father with emphysema. SOCIAL HISTORY: The patient lives with her daughter Keri, who is her surrogate decision maker. She is a do not resuscitate. She has a history of 30 -pack year smoking. She quit 4 years ago. She is a recovering alcoholic. She quit drinking 6 years ago. She ambulates with a rolling walker. REVIEW OF SYSTEMS: The patient denies any chest pain or shortness of breath. Denies any nausea, vomiting, diarrhea, or abdominal pain. She denies any urinary frequency, urgency, or pain with urination. She is able to move all 4 extremities. She does complain of pain to the left hip. She denies any weakness on 1 side. PHYSICAL EXAMINATION GENERAL: At this time, Ms. Syed is a 68-year-old female. She is in moderate distress from her left hip pain. She is alert and oriented x3, rocking in the bed. VITAL SIGNS: Blood pressure 104/78, heart rate 99, respirations are 18, O2 saturation 96%, temperature is 98.1. HEENT: Head is atraumatic, normocephalic. Eyes: EOMs are intact. Sclerae anicteric and not pale. Oral mucosa is moist. NECK: Supple. LUNGS: Clear to auscultation bilaterally. There are no wheezes, rales, or rhonchi. CARDIAC: S1, S2. Regular rate and rhythm. No murmurs, rubs, or gallops. ABDOMEN: Soft. Ascites is present. It is nontender. Bowel sounds are active x4. EXTREMITIES: She has venous stasis skin changes with discolored skin with scabbed abrasions noted to bilateral lower extremities, dry and scaly. There is chronic erythema, but there is no evidence of acute cellulitis or infection. There is no increased warmth. Pedal pulses are +1. She is tender with palpation to left hip. NEUROLOGIC: She is awake and alert, oriented x3. Her speech is clear. Her thought process is intact. She has no gross focal deficits. SKIN: She does have venous stasis changes to bilateral lower extremities with dry scaly skin with erythema. scabbes areas to bilat arms. DIAGNOSTIC STUDIES/LAB DATA: WBCs are 5.0, RBCs 3.72, hemoglobin 10.9, hematocrit is 33, platelet count is 161. Sodium 132, potassium 4.1, chloride 101, carbon dioxide was 23, anion gap was 8, BUN was 14, creatinine 0.57, glucose was 72, calcium 8.7, magnesium 1.9. Total bilirubin 0.90, AST was 37, ALT was 5, alkaline phosphatase was 292. Ammonia was 66. Urine is pending. ASSESSMENT AND PLAN: Ms. Syed is a 68-year-old female with a past medical history significant for alcoholic cirrhosis of the liver, esophageal varices, chronic pain, avascular necrosis of the left hip, who presented to the emergency room with intractable left hip pain. She will be admitted under shelter care for: 1. Left hip pain, avascular necrosis. The patient has chronic left hip pain due to avascular necrosis. She follows with Dr. Vincent for pain management. She presents today with uncontrollable pain to the left hip. I have placed her back on oxycodone and fentanyl as her home medications as previously prescribed. I have added gabapentin 100 mg t.i.d. I have also consulted Dr. Vincent to see the patient in consultation due to her uncontrollable left hip pain, for further pain medication recommendations. If pain is not controlled we could consider consult to orthopedics. 2. History of recent endocarditis. 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 We will continue during this shelter admission as the patient does receive this as an outpatient and follows with Infectious Disease, Dr. Hernandez. She will continue to need weekly lab work as ordered by infectious disease. 3. Chronic pain. We will continue the patient on her chronic pain medications as previously prescribed of oxycodone, fentanyl patch. She will also continue on baclofen. 4. Restless legs. She will continue on Remeron for her restless legs. 5. Cirrhosis of liver. She will continue on rifaximin as previously prescribed. Her ammonia level is slightly elevated will will also continue lactulose 30mls BID. 6. Hyponatremia. The patient does have chronic hyponatremia and she is at her baseline. I suspect this is related to her diuretics that she uses at home. 7. FEN: She can have a regular diet. 8. Code status: She is a DNR. 9. DVT prophylaxis: I will place her on SCDs as the patient does have a history of esophageal varices and risk of bleeding. She does have intermittent epistaxis while in the emergency room, but that has subsided at this time. TIME SPENT: Time spent on this admission was 60 minutes, greater than half that time was spent at the bedside reviewing events leading thus far to her hospitalization, performing physical exam, and reviewing my plan of care. I have discussed this with my attending Dr. Millicent Villar; she is in agreement with my plan. TAMIKA PEÑA, [employer] SALES TRAINER [id number]/[facility] #: [id number] [facility]
[2019-08-13] MEDS: Ferrous Sulfate TAB* 325 MG PO SCH (20:14)
[2019-08-13] MEDS: Baclofen TAB* 10 MG PO SCH (20:14)
[2019-08-13] MEDS: Potassium Chlor TAB* 20 MEQ TAB.ER PO SCH (20:14)
[2019-08-13] MEDS: Mirtazapine TAB* 15 MG PO SCH (20:14)
[2019-08-13] MEDS: Pregabalin 25 mg CAP (*) PO SCH (20:15)
[2019-08-13] MEDS: RiFAXimin* 550 MG TAB PO SCH (20:15)
[2019-08-13] MEDS ORDERED: Calcium Carbonate TAB* 1250 MG (CALCIUM 500 MG) PO SCH (21:00)
[2019-08-13] MEDS ORDERED: Gabapentin CAP(*) 100 MG PO SCH ×2 (21:00)
[2019-08-13] MEDS: Triamcinolone 0.5% CREAM(NF) 15 GM TUBE TOPICAL SCH (21:14)
[2019-08-13] MEDS: Moisturizing CREAM* 120 GM JAR TOPICAL SCH (21:14)
[2019-08-13] MEDS: Calcium Carbonate TAB* 1250 MG (CALCIUM 500 MG) PO SCH (21:14)
[2019-08-14] MEDS: ceFAZolin 2 GM PREMIX in ORs 2 GM/50 ML BAG IVPB SCH ×3 (02:55→18:27)
[2019-08-14] MEDS: oxyCODONE TAB* 5 MG TAB PO PRN ×3 (02:55→21:03)
[2019-08-14] MEDS: fentaNYL Patch Check Q Shift 1 NOTE FOLLOW UP SCH ×4 (06:50→19:47)
[2019-08-14] MEDS ORDERED: NS 0.9% 500 ML* 500 ML IV ONE (08:00)
[2019-08-14] MEDS: Cholecalciferol TAB* 1000 UNITS PO SCH (08:14)
[2019-08-14] MEDS: Vitamin E CAP* 200 UNITS PO SCH (08:14)
[2019-08-14] MEDS: PARoxetine HCL TAB* 40 MG PO SCH (08:15)
[2019-08-14] MEDS: Baclofen TAB* 10 MG PO SCH ×2 (08:17→21:02)
[2019-08-14] MEDS: Ferrous Sulfate TAB* 325 MG PO SCH ×2 (08:17→21:01)
[2019-08-14] MEDS: Spironolactone TAB* 25 MG PO SCH (08:17)
[2019-08-14] MEDS: RiFAXimin* 550 MG TAB PO SCH ×2 (08:17→21:03)
[2019-08-14] MEDS: Calcium Carbonate TAB* 1250 MG (CALCIUM 500 MG) PO SCH ×2 (08:18→21:01)
[2019-08-14] MEDS: Potassium Chlor TAB* 20 MEQ TAB.ER PO SCH ×3 (08:18→21:02)
[2019-08-14] MEDS: Furosemide TAB* 40 MG PO SCH (08:19)
[2019-08-14] MEDS: Pantoprazole TAB * 40 MG TAB PO SCH (08:19)
[2019-08-14] MEDS: Moisturizing CREAM* 120 GM JAR TOPICAL SCH ×2 (08:22→21:05)
[2019-08-14] MEDS: Pregabalin 25 mg CAP (*) PO SCH ×2 (08:56→14:08)
[2019-08-14] MEDS: Triamcinolone 0.5% CREAM(NF) 15 GM TUBE TOPICAL SCH ×2 (09:16→21:05)
--- NOTE | 2019-08-14 11:30 | CONSULT ---
Palliative / Hospice Consult Ordering Provider: Junaid Funk - PCPAlejandrina Referal Reason: Goals of care/lactulose/ oxy & fentanyl - Subjective Code Status: DNR Advance Directives Location: No Advance Directives [facility] Part A Completed: Yes - completed on chart [facility] Part E Completed:: Yes - completed on chart - History or Present Illness History or Present Illness: 68yo female with liver cirrhosis and endocarditis presents to ER with worsening chronic L hip pain. PMH is significant for liver cirrhosis with ascites s/p paracentesis x3, MSSA bacteremia endocarditis on IV antibiotics, low back pain work related had lumbar fusion 1993 involved with pain clinic since 2017 and DM. PSHx pt lives with her daughter Keri who is her HCP, [phone]) another daughter is the alternate HCP and Tamika another daughter is kept informed she is caring for their dad who has cancer. Pt is ex tob user, no drugs and ex etoh user. Studies brain CT-no acute findings, unchanged R cerebellar hemisphere encephalomalacia,Echo-EF 55-60% MV vegetation, H/H 10.9/33 , BUN/Cr 14/.57, egfr 106, Ca 8.7, alb 2.8 and NH4 66. Pt last admitted 02/18- for hepatic encephalopathy and 07/10-07/18 for L hip pain after which she went to rehab at [facility] for 10 days and 6 ER visits. All history is from pt, family and medical records. Lab Values: Abnormal Lab Results 08/13/19 08/13/19 08/13/19 12:51 12:51 12:51 WBC 5.0 RBC 3.72 Hgb 10.9 L Hct 33 L MCV 89 MCH 29 MCHC 33 RDW 20 H Plt Count 161 MPV 7.1 L Neut % (Auto) 62.7 Lymph % (Auto) 18.2 [place] % (Auto) 14.3 Eos % (Auto) 3.2 Baso % (Auto) 1.6 Absolute Neuts (auto) 3.1 Absolute Lymphs (auto) 0.9 L Absolute Monos (auto) 0.7 Absolute Eos (auto) 0.2 Absolute Basos (auto) 0.1 Absolute Nucleated RBC 0.0 Nucleated RBC % 0.1 Sodium 132 L Potassium 4.1 Chloride 101 Carbon Dioxide 23 Anion Gap 8 BUN 14 Creatinine 0.57 Est GFR ( Amer) 128.4 Est GFR (Non-Af Amer) 106.1 BUN/Creatinine Ratio 24.6 H Glucose 72 Calcium 8.7 Magnesium 1.9 Total Bilirubin 0.90 AST 37 ALT 5 L Alkaline Phosphatase 292 H Ammonia 66 H Total Protein 7.8 Albumin 2.8 L Globulin 5.0 H Albumin/Globulin Ratio 0.6 L Urine Color Urine Appearance Urine pH Ur Specific [place] Urine Protein Urine Ketones Urine Blood Urine Nitrate Urine Bilirubin Urine Urobilinogen Ur Leukocyte Esterase Urine Glucose 08/13/19 15:46 WBC RBC Hgb Hct MCV MCH MCHC RDW Plt Count MPV Neut % (Auto) Lymph % (Auto) [place] % (Auto) Eos % (Auto) Baso % (Auto) Absolute Neuts (auto) Absolute Lymphs (auto) Absolute Monos (auto) Absolute Eos (auto) Absolute Basos (auto) Absolute Nucleated RBC Nucleated RBC % Sodium Potassium Chloride Carbon Dioxide Anion Gap BUN Creatinine Est GFR ( Amer) Est GFR (Non-Af Amer) BUN/Creatinine Ratio Glucose Calcium Magnesium Total Bilirubin AST ALT Alkaline Phosphatase Ammonia Total Protein Albumin Globulin Albumin/Globulin Ratio Urine Color Yellow Urine Appearance Clear Urine pH 7.0 Ur Specific Lawrence 1.003 L Urine Protein Negative Urine Ketones Negative Urine Blood Negative Urine Nitrate Negative Urine Bilirubin Negative Urine Urobilinogen Negative Ur Leukocyte Esterase Negative Urine Glucose Negative Laboratory Last Values WBC 5.0 10^3/uL (3.5-10.8) 08/13/19 12:51 RBC 3.72 10^6 /uL (3.70-4.87) 08/13/19 12:51 Hgb 10.9 g/dL (12.0-16.0) L 08/13/19 12:51 Hct 33 % (35-47) L 08/13/19 12:51 MCV 89 fL (80-97) 08/13/19 12:51 MCH 29 pg (27-31) 08/13/19 12:51 MCHC 33 g/dL (31-36) 08/13/19 12:51 RDW 20 % (10-15) H 08/13/19 12:51 Plt Count 161 10^3/uL (150-450) 08/13/19 12:51 MPV 7.1 fL (7.4-10.4) L 08/13/19 12:51 Neut % (Auto) 62.7 % 08/13/19 12:51 Lymph % (Auto) 18.2 % 08/13/19 12:51 [place] % (Auto) 14.3 % 08/13/19 12:51 Eos % (Auto) 3.2 % 08/13/19 12:51 Baso % (Auto) 1.6 % 08/13/19 12:51 Absolute Neuts (auto) 3.1 10^3/ul (1.5-7.7) 08/13/19 12:51 Absolute Lymphs (auto) 0.9 10^3/ul (1.0-4.8) L 08/13/19 12:51 Absolute Monos (auto) 0.7 10^3/ul (0-0.8) 08/13/19 12:51 Absolute Eos (auto) 0.2 10^3/ul (0-0.6) 08/13/19 12:51 Absolute Basos (auto) 0.1 10^3/ul (0-0.2) 08/13/19 12:51 Absolute Nucleated RBC 0.0 10^3/ul 08/13/19 12:51 Nucleated RBC % 0.1 08/13/19 12:51 Sodium 132 mmol/L (135-145) L 08/13/19 12:51 Potassium 4.1 mmol/L (3.5-5.0) 08/13/19 12:51 Chloride 101 mmol/L (101-111) 08/13/19 12:51 Carbon Dioxide 23 mmol/L (22-32) 08/13/19 12:51 Anion Gap 8 mmol/L (2-11) 08/13/19 12:51 BUN 14 mg/dL (6-24) 08/13/19 12:51 Creatinine 0.57 mg/dL (0.51-0.95) 08/13/19 12:51 Est GFR ( Amer) 128.4 (>60) 08/13/19 12:51 Est GFR (Non-Af Amer) 106.1 (>60) 08/13/19 12:51 BUN/Creatinine Ratio 24.6 (8-20) H 08/13/19 12:51 Glucose 72 mg/dL (70-100) 08/13/19 12:51 Calcium 8.7 mg/dL (8.6-10.3) 08/13/19 12:51 Magnesium 1.9 mg/dL (1.9-2.7) 08/13/19 12:51 Total Bilirubin 0.90 mg/dL (0.2-1.0) 08/13/19 12:51 AST 37 U/L (13-39) 08/13/19 12:51 ALT 5 U/L (7-52) L 08/13/19 12:51 Alkaline Phosphatase 292 U/L (34-104) H 08/13/19 12:51 Ammonia 66 mcmol/L (16-53) H 08/13/19 12:51 Total Protein 7.8 g/dL (6.4-8.9) 08/13/19 12:51 Albumin 2.8 g/dL (3.2-5.2) L 08/13/19 12:51 Globulin 5.0 g/dL (2-4) H 08/13/19 12:51 Albumin/Globulin Ratio 0.6 (1-3) L 08/13/19 12:51 Urine Color Yellow 08/13/19 15:46 Urine Appearance Clear 08/13/19 15:46 Urine pH 7.0 (5-9) 08/13/19 15:46 Ur Specific Lawrence 1.003 (1.010-1.030) L 08/13/19 15:46 Urine Protein Negative (Negative) 08/13/19 15:46 Urine Ketones Negative (Negative) 08/13/19 15:46 Urine Blood Negative (Negative) 08/13/19 15:46 Urine Nitrate Negative (Negative) 08/13/19 15:46 Urine Bilirubin Negative (Negative) 08/13/19 15:46 Urine Urobilinogen Negative (Negative) 08/13/19 15:46 Ur Leukocyte Esterase Negative (Negative) 08/13/19 15:46 Urine Glucose Negative (Negative) 08/13/19 15:46 - Objective Active Medications: Baclofen (Lioresal Tab*) 10 mg PO BID [facility] Last Admin: 08/14/19 08:17 Dose: 10 mg Calcium Carbonate (Calcium Carbonate Tab*) 1,250 mg PO BID [facility] Last Admin: 08/14/19 08:18 Dose: 1,250 mg Cholecalciferol (Vitamin D Tab*) 2,000 units PO DAILY [facility] Last Admin: 08/14/19 08:14 Dose: 2,000 units Fentanyl (Duragesic Patch 12 Mcg/Hr *) 12 mcg TRANSDERM Q72H [facility] Last Admin: 08/13/19 19:24 Dose: 12 mcg Fentanyl (Duragesic Patch 25 Mcg/Hr*) 25 mcg TRANSDERM Q72H [facility] Last Admin: 08/13/19 19:28 Dose: Not Given Ferrous Sulfate (Ferrous Sulfate Tab*) 325 mg PO BID [facility] Last Admin: 08/14/19 08:17 Dose: 325 mg Furosemide (Lasix Tab*) 60 mg PO DAILY [facility] Last Admin: 08/14/19 08:19 Dose: 60 mg Heparin Sodium (Porcine) (Heparin Flush Picc/Ml/Cvc(*)) 1 ml FLUSH 0600,1800 [facility]; Protocol Last Admin: 08/14/19 08:49 Dose: 1 ml Cefazolin Sodium/Dextrose (Kefzol 2 Gm Premix In Ors(*)) 2 gm in 50 mls @ 100 mls/hr IVPB Q8H [facility] Last Admin: 08/14/19 10:29 Dose: 100 mls/hr Lactulose (Lactulose*) 30 ml PO BID [facility] Last Admin: 08/14/19 08:13 Dose: 30 ml Mirtazapine (Remeron Tab*) 30 mg PO BEDTIME [facility] Last Admin: 08/13/19 20:14 Dose: 30 mg Multi-Ingredient Ointment (Hydrocerin*) 1 applic TOPICAL BID [facility] Last Admin: 08/14/19 08:22 Dose: 1 applic Oxycodone HCl (Roxycodone Tab*) 10 mg PO Q4H PRN PRN Reason: PAIN - MODERATE Last Admin: 08/13/19 18:04 Dose: 10 mg Oxycodone HCl (Roxycodone Tab*) 15 mg PO Q4H PRN PRN Reason: PAIN - SEVERE Last Admin: 08/14/19 02:55 Dose: 15 mg Pantoprazole Sodium (Protonix Tab*) 40 mg PO DAILY [facility] Last Admin: 08/14/19 08:19 Dose: 40 mg Paroxetine HCl (Paxil Tab*) 40 mg PO DAILY [facility] Last Admin: 08/14/19 08:15 Dose: 40 mg Pharmacy Profile Note (Fentanyl Patch Check Q Shift) 1 note FOLLOW UP 0700, 1900 [facility] Last Admin: 08/14/19 06:50 Dose: 1 note Pharmacy Profile Note (Fentanyl Patch Check Q Shift) 1 note FOLLOW UP 0700, 1900 [facility] Last Admin: 08/14/19 06:50 Dose: 1 note Potassium Chloride (Klor Con Er Tab*) 20 meq PO TID [facility] Last Admin: 08/14/19 08:18 Dose: 20 meq Pregabalin (Lyrica 25 Mg Cap (*)) 25 mg PO TID [facility] Last Admin: 08/14/19 08:56 Dose: Not Given Rifaximin (Xifaxan*) 550 mg PO BID [facility] Last Admin: 08/14/19 08:17 Dose: 550 mg Spironolactone (Aldactone Tab*) 100 mg PO DAILY [facility] Last Admin: 08/14/19 08:17 Dose: 100 mg Triamcinolone Acetonide (Triamcinolone 0.5% Cream*) 1 applic TOPICAL BID [facility] Last Admin: 08/14/19 09:16 Dose: Not Given Vitamin E (Vitamin E Cap*) 200 units PO DAILY [facility] Last Admin: 08/14/19 08:14 Dose: 200 units Vital Signs: Vital Signs: Temp Pulse Resp BP Pulse Ox 98.1 F 100 18 89/60 95 08/14/19 07:44 08/14/19 07:44 08/14/19 07:46 08/14/19 07:44 08/14/19 07:44 Patient Weight: Weight 66.678 kg Intake and Output: Intake & Output 08/12/19 08/13/19 08/14/19 08/15/19 06:59 06:59 06:59 06:59 Intake Total 516 Output Total 650 800 Balance -134 -800 Weight 66.678 kg Intake: IVPB 116 ABX - CEFAZOLIN 116 Oral 400 Output: Urine 650 800 Other: # Bowel Movements 0 Estimated Stool Amount Medium ADLs: Meal Record Start: 08/13/19 16: 04 Freq: Status: Active Protocol: Created 08/13/19 16:04 System (Rec: 08/13/19 16:04 System [id number]) Document 08/13/19 21:04 [id number] (Rec: 08/13/19 21:05 [id number]) Intake and Output Start: 08/13/19 11: 15 Freq: Status: Active Protocol: Created 08/13/19 11:15 System (Rec: 08/13/19 11:15 System [id number]) Intake and Output Start: 08/13/19 16: 04 Freq: DAILY@0600,1400,2200 Status: Active Protocol: Created 08/13/19 16:04 System (Rec: 08/13/19 16:04 System [id number]) Document 08/13/19 18:34 [id number] (Rec: 08/13/19 18:35 [id number]) Document 08/13/19 21:53 [id number] (Rec: 08/13/19 21:53 [id number] [id number]) Document 08/13/19 22:13 [id number] (Rec: 08/13/19 22:13 [id number] [id number]) Document 08/14/19 06:17 [id number] (Rec: 08/14/19 06:17 [id number] [id number]) Document 08/14/19 10:57 [id number] (Rec: 08/14/19 10:57 [id number] [id number]) Head: Normal Eyes: No Scleral Icterus Ears/Nose/Mouth/Throat: NL Teeth, Lips, Gums Neck: NL Appearance and Movements; NL JVP Cardiovascular: NL Sounds; No Murmurs; No JVD Respiratory: Symmetrical Chest Expansion and Respiratory Effort Neurological: Alert and Oriented x 3, - - Assessment Assessment: 68yo female with liver cirrhosis and endocarditis presents with exacerbation of L chronic hip pain - Plan Consult Plan (MU): Palliative Plan: Long discussion with pt in person and with daughters(Keri and Triny) later over the phone. Daughters have noticed that their mother seems anxious at home and seems forgetful. Pt given MMSE and scored 27/30 so no evidence of dementia at this time but does get some confusion occasionally as noticed by staff. Pt also reports she feels calmer at the hospital. Although her daughter takes excellent care of her she worries she is a burden to her and is reluctant to move as much at home because can't get comfortable. Pt is able to sit for longer periods of time in hospital derrick chair and her pain meds have been adjusted(increased Duragesic from 25 to 37mcg) so her pain may be more adequately treated. Pt is okay with returning to [facility] rehab and will think about placement. We also discussed code status pt and daughters are still interested in active treatments but don't want CPR or intubation or feeding tube. Pt didn't want to be a "vegetable" and didn't want her daughters to agonize over care decisions. MOLST was updated to reflect those choices. Triny( pharmacist) wanted to add Lyrica to allergy list pt gets itching and she wanted someone to review medications at discharge with her. Daughters are interested in Palliative care as an outpatient but would have to wait until pt is out of SNF. Brochure included with discharge materials. Pt is not hospice eligible currently. KPS 50%, PPS 50% - Time On Unit Date of Evaluation: 08/14/19 Hospice Consult Time in: 10:30 Hospice Consult Time Out: 11:30 Hospice Consult Time Total: 60 > 50% of Time Spend In Counseling or Coordinating Care: Yes
--- NOTE | 2019-08-14 14:59 | ECHO ---
*[facility]* [place] [address] Fax #: [phone] Transthoracic Echocardiogram Patient: June Syed : 1950 Study Date: 08/14/2019 Age: 68 Gender: F HR: 97 bpm Height: 58 in /147.3 cm BSA: 1.6 m^2 Weight: 146.7 lb /66.7 kg BMI: 30.7 kg/m^2 *Silverware Etcher: * Lizeth Arora *Referring Physician: * Amadou HortonReading Physician: * Amie Milton MD Indications: Endocarditis Acute/subacute bacterial. History: Transient ischemic attack. Cerebrovascular accident. Risk factors: ETOH, Liver cirrhosis. Obese. Conclusions Summary: - Left ventricle: The cavity size is normal. Wall thickness is at the upper limits of normal. Systolic function is normal. The estimated ejection fraction is 55-60%. - Right ventricle: Systolic function is normal. - Atrial septum: No defect or patent foramen ovale is identified based on color Doppler. - Mitral valve: The posterior mitral valve annulus appears moderately calcified. The leaflets are mildly thickened. There is a vegetation on the atrial aspect of the posterior leaflet, spherical, echocardiogram bright. - Aortic valve: There is trace regurgitation. - Tricuspid valve: There is trace regurgitation. - Compared with prior echocardiogram of 07/12/2019, mitral valve echobright mass seen previously, unable to compare size as it was not measured on the current study, no longer see mild mitral regurgitation, vetricular function is stable. Study data: Transthoracic echocardiogram. Procedure: Transthoracic echocardiography was performed. The study was technically limited due to restricted patient mobility. Complete 2D, spectral Doppler, and color flow Doppler. Location: Bedside. Patient status: Inpatient. Patient room number: 337. Rhythm: Normal sinus rhythm. Findings Left ventricle: The cavity size is normal. Wall thickness is at the upper limits of normal. Systolic function is normal. The estimated ejection fraction is 55-60%. Wall motion is normal; there are no regional wall motion abnormalities. Left ventricular diastolic function parameters are normal. Right ventricle: The cavity size is normal. Systolic function is normal. Ventricular septum: The ventricular septum is normal. Left atrium: The atrium is normal in size. Right atrium: The atrium is normal in size. Atrial septum: No defect or patent foramen ovale is identified.b Mitral valve: The posterior mitral valve annulus appears moderately calcified. The leaflets are mildly thickened. Thickening. Leaflet separation is normal. Prolapse. There is a mass. There is a vegetation on the atrial aspect of the posterior leaflet, spherical, echocardiogram bright. There is no regurgitation. Aortic valve: The valve is trileaflet. The leaflets are mildly calcified. Cusp separation is normal. Transvalvular velocity is within the normal range. There is no evidence of stenosis. There is trace regurgitation. Tricuspid valve: The valve is structurally normal. There is no evidence of stenosis. There is trace regurgitation. Pulmonic valve: The valve is structurally normal. There is no evidence of stenosis. There is trace regurgitation. Aorta: The aortic root appears normal. The aortic arch appears normal. Pericardium: There is no significant pericardial effusion. Pulmonary arteries: Systolic pressure can not be accurately estimated. Systemic veins: Inferior vena cava: The vessel is normal in size. There is (>= 50%) respiratory change in the IVC dimension. Pulmonary veins: The Pulmonary veins appear normal. Measurements Left ventricle Value Ref Aortic valve continued Value Ref LORENE, LAX 3.8 cm 3.8 - 5.2 Mean grad, S 6.0 mm Hg ----- ESD, LAX 2.4 cm 2.2 - 3.5 Peak grad, S 9.0 mm Hg ----- FS, LAX 38 % 27 - 45 LVOT/AV, VTI ratio 0.7 ----- PW, ED, LAX (H) 1.2 cm 0.6 - 0.9 [place], VTI 2.21 cm^2 ----- E', lat naren, TDI 10.1 cm/sec >=10.0 [place], Vmax 2.14 cm^2 ----- E/e', lat naren, 9 TDI Mitral valve Value Ref Peak E 0.9 m/sec ----- LVOT Value Ref Peak A 1.09 m/sec ----- Diam, S 2.00 cm Decel time 197 ms ----- Area 3.1 cm^2 Peak grad, D 3.2 mm Hg ----- Peak minesh, S 1.03 m/sec Peak E/A ratio 0.8 ----- VTI, S 22.0 cm Mean grad, S 3 mm Hg Pulmonic valve Value Ref SV 69 ml Peak v, S 1.01 m/sec ----- Peak grad, S 4.0 mm Hg ----- Ventricular septum Value Ref IVS, ED (H) 1.2 cm 0.6 - 0.9 Tricuspid valve Value Ref TR peak v 2.64 m/sec <=2.8 Right ventricle Value Ref Peak RV-RA grad, S 28 mm Hg ----- LORENE, LAX 3.0 cm Max TR minesh 2.64 m/sec ----- LORENE minor ax, 3.2 cm 1.9 - 3.5 A4C mid Aortic root Value Ref Root diam 3.2 cm <3.8 Left atrium Value Ref AP dim, ES 3.60 cm 2.70 - Ascending aorta Value Ref 3.80 AAo AP diam, S 3.1 cm ----- ML dim, A4C 4.4 cm SI dim, A4C 4.4 cm Aortic arch Value Ref Vol/bsa, ES, 1-p 22 ml/m^2 11 - 40 Arch diam 2.8 cm ----- A4C Decending aorta Value Ref Right atrium Value Ref Joey peak minesh 0.74 m/sec ----- SI dim, ES 4.3 cm 3.4 - 5.3 ML dim, ES, A4C 3.6 cm 2.6 - 4.4 Inferior vena cava Value Ref SI dim, ES, A4C 4.3 cm 3.4 - 5.3 Diam 1.7 cm ----- Aortic valve Value Ref Peak v, S 1.51 m/sec VTI, S 31.3 cm Legend: (L) and (H) na values outside specified reference range. Prepared and electronically signed by Amie Milton MD 08/14/2019 14:58
--- NOTE | 2019-08-14 16:48 | PN ---
Subjective Date of Service: 08/14/19 Interval History: Pt is alert and oriented x 3. Reports that she is in much less pain now since receiving extra dose of pain medication. pt denies any chest pain, shortness of breath or dizziness. Family History: Unchanged from Admission Social History: Unchanged from Admission Past Medical History: Unchanged from Admission Objective Active Medications: Baclofen (Lioresal Tab*) 10 mg PO BID [facility] Last Admin: 08/14/19 08:17 Dose: 10 mg Calcium Carbonate (Calcium Carbonate Tab*) 1,250 mg PO BID [facility] Last Admin: 08/14/19 08:18 Dose: 1,250 mg Cholecalciferol (Vitamin D Tab*) 2,000 units PO DAILY [facility] Last Admin: 08/14/19 08:14 Dose: 2,000 units Fentanyl (Duragesic Patch 12 Mcg/Hr *) 12 mcg TRANSDERM Q72H [facility] Last Admin: 08/13/19 19:24 Dose: 12 mcg Fentanyl (Duragesic Patch 25 Mcg/Hr*) 25 mcg TRANSDERM Q72H [facility] Last Admin: 08/13/19 19:28 Dose: Not Given Ferrous Sulfate (Ferrous Sulfate Tab*) 325 mg PO BID [facility] Last Admin: 08/14/19 08:17 Dose: 325 mg Furosemide (Lasix Tab*) 60 mg PO DAILY [facility] Last Admin: 08/14/19 08:19 Dose: 60 mg Heparin Sodium (Porcine) (Heparin Flush Picc/Ml/Cvc(*)) 1 ml FLUSH 0600,1800 [facility]; Protocol Last Admin: 08/14/19 14:34 Dose: 1 ml Cefazolin Sodium/Dextrose (Kefzol 2 Gm Premix In Ors(*)) 2 gm in 50 mls @ 100 mls/hr IVPB Q8H [facility] Last Admin: 08/14/19 10:29 Dose: 100 mls/hr Lactulose (Lactulose*) 30 ml PO BID [facility] Last Admin: 08/14/19 08:13 Dose: 30 ml Mirtazapine (Remeron Tab*) 30 mg PO BEDTIME [facility] Last Admin: 08/13/19 20:14 Dose: 30 mg Multi-Ingredient Ointment (Hydrocerin*) 1 applic TOPICAL BID [facility] Last Admin: 08/14/19 08:22 Dose: 1 applic Oxycodone HCl (Roxycodone Tab*) 10 mg PO Q4H PRN PRN Reason: PAIN - MODERATE Last Admin: 08/14/19 12:26 Dose: 10 mg Oxycodone HCl (Roxycodone Tab*) 15 mg PO Q4H PRN PRN Reason: PAIN - SEVERE Last Admin: 08/14/19 02:55 Dose: 15 mg Pantoprazole Sodium (Protonix Tab*) 40 mg PO DAILY [facility] Last Admin: 08/14/19 08:19 Dose: 40 mg Paroxetine HCl (Paxil Tab*) 40 mg PO DAILY [facility] Last Admin: 08/14/19 08:15 Dose: 40 mg Pharmacy Profile Note (Fentanyl Patch Check Q Shift) 1 note FOLLOW UP 0700, 1900 [facility] Last Admin: 08/14/19 06:50 Dose: 1 note Pharmacy Profile Note (Fentanyl Patch Check Q Shift) 1 note FOLLOW UP 0700, 1900 [facility] Last Admin: 08/14/19 06:50 Dose: 1 note Potassium Chloride (Klor Con Er Tab*) 20 meq PO TID [facility] Last Admin: 08/14/19 14:33 Dose: 20 meq Rifaximin (Xifaxan*) 550 mg PO BID [facility] Last Admin: 08/14/19 08:17 Dose: 550 mg Spironolactone (Aldactone Tab*) 100 mg PO DAILY [facility] Last Admin: 08/14/19 08:17 Dose: 100 mg Triamcinolone Acetonide (Triamcinolone 0.5% Cream*) 1 applic TOPICAL BID [facility] Last Admin: 08/14/19 09:16 Dose: Not Given Vitamin E (Vitamin E Cap*) 200 units PO DAILY [facility] Last Admin: 08/14/19 08:14 Dose: 200 units Vital Signs - 8 hr 08/14/19 08/14/19 12:26 16:00 Temperature 97.7 F Pulse Rate 99 Respiratory 20 16 Rate Blood Pressure 98/65 (mmHg) O2 Sat by Pulse 94 Oximetry Oxygen Devices in Use Now: None Appearance: Elderly woman appears older than stated age sitting up in chair watching TV. Does not appear to be in any distress. Eyes: No Scleral Icterus, PERRLA Ears/Nose/Mouth/Throat: NL Teeth, Lips, Gums, Clear Oropharnyx Neck: NL Appearance and Movements; NL JVP, Trachea Midline, No Thyroid Enlargement, Masses Respiratory: Symmetrical Chest Expansion and Respiratory Effort, Clear to Auscultation Cardiovascular: NL Sounds; No Murmurs; No JVD, RRR, - - Bilateral lower extremity edematous unable to palapate pedal pulses. Abdominal: - - Abdomen distended, hyperactive bowel sounds, unable to assess for organomegaly due to extensive girth of abdomen. Lymphatic: No Cervical Adenopathy Skin: - - lower extremities skin thickened red, and flakey, with healing areas of eschar. Neurological: Alert and Oriented x 3 Result Diagrams: 08/13/19 12:51 08/13/19 12:51 Assess/Plan/Problems-Billing Assessment: 68 yof with medical hx significant for Alcoholic liver cirrhosis, esophageal varices, Chroinc back pain, TIA, CVA, Avascular necrosis of Left hip, Endocarditis, MSSA Bacteremia arrives to ED from [facility] for complaints of intractable pain in left hip and muscle spasms. - Patient Problems (1) Avascular necrosis of bone of left hip Current Visit: No Comment: -Is followed by Dr. Baxter for pain manangement. -Pt started on oxycodone and fentanyl per home orders. -pt reports that pain is well controlled today. (2) Chronic pain Current Visit: No Comment: Well controlled presently -Fentanyl, Oxycodone, Baclofen (3) Cirrhosis Current Visit: No Comment: From alcohol use. Likely the cause of her hyponatremia and low systolic BPs. History of varices, HE, and ascites requiring LVP. s/p LVP here on 07/14. - Follows with Dr. Suarez as an outpatient - cont home furosemide/spironolactone - continue home lactulose, rifaximin - cont low sodium diet -Ammonia level 66, pt is alert and oriented x 3 today (4) Endocarditis Current Visit: No Comment: -Transthoracic echo performed today- Vegitation observed on atrial aspect of posterior leaflet -ID aware -Continue cefzole 2g q8h, pt on day 32 of 42 day course of meds. (5) Multiple wounds of skin Current Visit: No Comment: - Chronic wounds on bilateral lower extremities without active drainage, eschar. pt reports that she scratches and picks at her legs. - Clean daily with soap and water and apply lotion (6) Restless leg syndrome Current Visit: No Comment: - Continue Mirtazapine (7) GERD (gastroesophageal reflux disease) Current Visit: No Status: Chronic Priority: Medium Code(s): K21.9 - GASTRO -ESOPHAGEAL REFLUX DISEASE WITHOUT ESOPHAGITIS SNOMED Code(s): 837813428 Comment: - Continue pantoprazole (8) DVT prophylaxis Current Visit: Yes Comment: - Heparin SQ Status and Disposition: Stable- [facility] no longer available. Looking for other placement
--- NOTE | 2019-08-14 18:13 | PN ---
Progress Note - Progress Note Date of Service: 08/14/19 Note: INPATIENT PAIN-PROGRESS She is much more comfortable on increased fentanyl patch, now 37 mcg/hr. She is no longer yelling out in pain, and seems more oriented. Her Lyrica was discontinued by the hospitalists, possibly due to her medical comorbidities. She allowed Eucerin to her legs and they look better. Will likely go to [facility] tomorrow. Current Medications Baclofen (Lioresal Tab*) 10 mg PO BID [facility] Last Admin: 08/14/19 08:17 Dose: 10 mg Calcium Carbonate (Calcium Carbonate Tab*) 1,250 mg PO BID [facility] Last Admin: 08/14/19 08:18 Dose: 1,250 mg Cholecalciferol (Vitamin D Tab*) 2,000 units PO DAILY [facility] Last Admin: 08/14/19 08:14 Dose: 2,000 units Fentanyl (Duragesic Patch 12 Mcg/Hr *) 12 mcg TRANSDERM Q72H [facility] Last Admin: 08/13/19 19:24 Dose: 12 mcg Fentanyl (Duragesic Patch 25 Mcg/Hr*) 25 mcg TRANSDERM Q72H [facility] Last Admin: 08/13/19 19:28 Dose: Not Given Ferrous Sulfate (Ferrous Sulfate Tab*) 325 mg PO BID [facility] Last Admin: 08/14/19 08:17 Dose: 325 mg Furosemide (Lasix Tab*) 60 mg PO DAILY [facility] Last Admin: 08/14/19 08:19 Dose: 60 mg Heparin Sodium (Porcine) (Heparin Flush Picc/Ml/Cvc(*)) 1 ml FLUSH 0600,1800 [facility]; Protocol Last Admin: 08/14/19 14:34 Dose: 1 ml Cefazolin Sodium/Dextrose (Kefzol 2 Gm Premix In Ors(*)) 2 gm in 50 mls @ 100 mls/hr IVPB Q8H [facility] Last Admin: 08/14/19 10:29 Dose: 100 mls/hr Lactulose (Lactulose*) 30 ml PO BID [facility] Last Admin: 08/14/19 08:13 Dose: 30 ml Mirtazapine (Remeron Tab*) 30 mg PO BEDTIME [facility] Last Admin: 08/13/19 20:14 Dose: 30 mg Multi-Ingredient Ointment (Hydrocerin*) 1 applic TOPICAL BID [facility] Last Admin: 08/14/19 08:22 Dose: 1 applic Oxycodone HCl (Roxycodone Tab*) 10 mg PO Q4H PRN PRN Reason: PAIN - MODERATE Last Admin: 08/14/19 12:26 Dose: 10 mg Oxycodone HCl (Roxycodone Tab*) 15 mg PO Q4H PRN PRN Reason: PAIN - SEVERE Last Admin: 08/14/19 02:55 Dose: 15 mg Pantoprazole Sodium (Protonix Tab*) 40 mg PO DAILY [facility] Last Admin: 08/14/19 08:19 Dose: 40 mg Paroxetine HCl (Paxil Tab*) 40 mg PO DAILY [facility] Last Admin: 08/14/19 08:15 Dose: 40 mg Pharmacy Profile Note (Fentanyl Patch Check Q Shift) 1 note FOLLOW UP 0700, 1900 [facility] Last Admin: 08/14/19 06:50 Dose: 1 note Pharmacy Profile Note (Fentanyl Patch Check Q Shift) 1 note FOLLOW UP 0700, 1900 [facility] Last Admin: 08/14/19 06:50 Dose: 1 note Potassium Chloride (Klor Con Er Tab*) 20 meq PO TID [facility] Last Admin: 08/14/19 14:33 Dose: 20 meq Rifaximin (Xifaxan*) 550 mg PO BID [facility] Last Admin: 08/14/19 08:17 Dose: 550 mg Spironolactone (Aldactone Tab*) 100 mg PO DAILY [facility] Last Admin: 08/14/19 08:17 Dose: 100 mg Triamcinolone Acetonide (Triamcinolone 0.5% Cream*) 1 applic TOPICAL BID [facility] Last Admin: 08/14/19 09:16 Dose: Not Given Vitamin E (Vitamin E Cap*) 200 units PO DAILY [facility] Last Admin: 08/14/19 08:14 Dose: 200 units Vital Signs Temp Pulse Resp BP Pulse Ox 97.7 F 99 16 98/65 94 08/14/19 16:00 08/14/19 16:00 08/14/19 16:00 08/14/19 16:00 08/14/19 16:00 EXAM: LUNGS: Clear HEART: Regular ABDOMEN: Protuberant EXTREMITIES: Skin on legs looks better NEUROLOGIC: Alert, much calmer today. Able to move all 4 extremities with 5/5 strength, though left hip still painful to move ASSESSMENT: 1. AVN, left hip 2. Failed back surgery 3. Chronic opioid use PLAN: I think she can go to [facility] on Fentanyl transdermal 37 mcg/hr , change every 72 hours as well as oxycodone 10 mg Q 4 PRN. She does not seem to need oxycodone 15 mg. She can follow up in the pain clinic
[2019-08-14] MEDS: Mirtazapine TAB* 15 MG PO SCH (21:03)
[2019-08-15] MEDS ORDERED: diPHENhydraMINE PO* 25 MG PO ONE (01:27)
[2019-08-15] MEDS: ceFAZolin 2 GM PREMIX in ORs 2 GM/50 ML BAG IVPB SCH ×2 (02:33→10:28)
[2019-08-15] MEDS: oxyCODONE TAB* 5 MG TAB PO PRN ×3 (04:29→14:53)
[2019-08-15] MEDS: fentaNYL Patch Check Q Shift 1 NOTE FOLLOW UP SCH ×2 (07:05→07:06)
[2019-08-15] MEDS: Ferrous Sulfate TAB* 325 MG PO SCH (09:45)
[2019-08-15] MEDS: Cholecalciferol TAB* 1000 UNITS PO SCH (09:45)
[2019-08-15] MEDS: Potassium Chlor TAB* 20 MEQ TAB.ER PO SCH ×2 (09:45→13:33)
[2019-08-15] MEDS: Baclofen TAB* 10 MG PO SCH (09:45)
[2019-08-15] MEDS: RiFAXimin* 550 MG TAB PO SCH (09:45)
[2019-08-15] MEDS: Pantoprazole TAB * 40 MG TAB PO SCH (09:46)
[2019-08-15] MEDS: Furosemide TAB* 40 MG PO SCH (09:46)
[2019-08-15] MEDS: Calcium Carbonate TAB* 1250 MG (CALCIUM 500 MG) PO SCH (09:46)
[2019-08-15] MEDS: Spironolactone TAB* 25 MG PO SCH (09:46)
[2019-08-15] MEDS: PARoxetine HCL TAB* 40 MG PO SCH (09:47)
[2019-08-15] MEDS: Vitamin E CAP* 200 UNITS PO SCH (09:47)
[2019-08-15] MEDS: Moisturizing CREAM* 120 GM JAR TOPICAL SCH (09:50)
[2019-08-15] MEDS: Triamcinolone 0.5% CREAM(NF) 15 GM TUBE TOPICAL SCH (09:53)
[2019-08-15 11:15] VITALS: BP 129/65
--- NOTE | 2019-08-15 16:02 | DS ---
CC: Dr. Estrada [place]; Dr. Jose Hernandez* DISCHARGE SUMMARY: DATE OF ADMISSION: 08/13/19 DATE OF DISCHARGE: 08/15/19 PROVIDER: Iggy Alfaro NP. ATTENDING PHYSICIAN WHILE IN THE HOSPITAL: Dr. Millicent Villar* (dictated by Iggy Alfaro NP). PRIMARY DIAGNOSIS: Chronic pain related to avascular necrosis of left hip. SECONDARY DIAGNOSES: 1. Endocarditis. 2. Cirrhosis of liver. 3. Hyponatremia. STUDIES WHILE IN THE HOSPITAL: 1. 08/13/19, brain CT: Motion degraded images with no acute intracranial abnormality detected. Unchanged right cerebellar hemisphere encephalomalacia. 2. 08/14/19, transthoracic echocardiogram: Left ventricle cavity size is normal. Wall thickness is at the upper limits of normal. Systolic function is normal. The estimated ejection fraction is 55% to 60%. Right ventricle systolic function is normal. Atrial septum: No defect or patent foramen ovale is identified based on color Doppler. Mitral valve: The posterior mitral valve annulus appears moderately calcified. The leaflets are mildly thickened. There is a vegetation on the atrial aspect of the posterior leaflet, spherical , echocardiogram-bright. Aortic valve: There is trace regurgitation. Tricuspid valve: There is trace regurgitation. Compared with prior echocardiogram of 07/12/19, mitral valve echo- bright mass seen previously, unable to compare size as it was not measured on the current study. No longer see mild mitral regurgitation. Ventricular function is stable. CONSULTATIONS WHILE IN THE HOSPITAL: 1. Dr. Rodrgiuez Vincent, Pain Clinic. 2. Dr. Radha Hartman from Palliative Care. HISTORY OF PRESENT ILLNESS AND HOSPITAL COURSE: Ms. Syed is a 68-year-old female patient with a past medical history significant for alcohol liver cirrhosis, for which she quit drinking 6 years ago; avascular necrosis of the left hip, which she follows with Dr. Vincent; history of esophageal varices; chronic back pain; restless leg syndrome; history of TIA and CVA, presented to ER with complaints of severe left hip pain and muscle spasms. While in the ER, the patient received CT scan of the brain due to complaints of falls in the home. CT scan was negative for any acute injury. The patient has severe intractable pain related to her left hip. The patient is unable to care for herself at home. The patient is admitted to the hospital for pain control and admission to rehab facility. While in the hospital, the patient continued her regular medications, especially cefazolin 2 g every 8 hours for the recent history of endocarditis. Fentanyl pain patch was increased to 37 mcg an hour, which the patient responded well to. She is no longer yelling out in pain or agitated. The patient also continued on oxycodone 10 mg every 4 hours as needed. The patient was initially prescribed Lyrica by Dr. Vincent, but due to the patient's history of itching with Lyrica, that medication was discontinued. The patient's lab work remained at baseline. Pain is under control. The patient at this time is stable for discharge to [facility] rehab and will be discharged today. PHYSICAL EXAMINATION: Elderly woman, appears older than stated age, sitting up in chair, watching TV, does not appear to be in any distress. HEENT: No scleral icterus. Pupils are PERRL. Normal lips, teeth, gums. Clear oropharynx. Neck is supple with normal movements. JVD is midline. No thyroid enlargement or masses appreciated. Symmetrical chest expansion and respiratory effort. Clear to auscultation in all lung rain. Normal sounds. No murmurs. No JVD. Rate and rhythm regular. Bilateral lower extremities are edematous chronically. I am unable to palpate pedal pulses. Abdomen is distended. Hyperactive bowel sounds. Unable to assess for organomegaly due to excessive girth of abdomen. No cervical adenopathy. Skin: Lower extremity skin is thickened, red, and flaky with healing areas of eschar. The patient is alert and oriented x3. No focal deficits appreciated. Ms. Syed is stable for discharge. Most recent vital signs are as follows: 96 for temp, 102 for heart rate, 18 respiratory rate, 98% on room air, 129/65. DISCHARGE MEDICATIONS: New Medications: 1. Gabapentin 100 mg p.o. t.i.d. 2. Increased fentanyl dosing 12 mcg transdermal patch for a total of 37 mcg between 2 fentanyl patches every 72 hours. 3. Rifaximin 550 mg p.o. b.i.d. (previous dose was 200 mg p.o. b.i.d.) Continued Medications: 1. Baclofen 10 mg p.o. b.i.d. 2. Calcium carbonate 600 mg p.o. b.i.d.. 3. Cholecalciferol 2000 units p.o. daily. 4. Ferrous sulfate 325 mg p.o. b.i.d. 5. Furosemide 60 mg p.o. daily. 6. Lactulose 30 mL p.o. q.4 hours as needed for constipation. 7. Mirtazapine 30 mg p.o. at bedtime. 8. Oxycodone 10 mg p.o. q.4 hours as needed for pain. 9. Pantoprazole 20 mg p.o. daily. 10. Paroxetine 40 mg p.o. daily. 11. Potassium chloride 20 mEq p.o. t.i.d. 12. Spironolactone 100 mg p.o. daily. 13. Triamcinolone 0.5% 1 application topically b.i.d. 14. Vitamin E capsules 200 units p.o. daily. 15. Alendronate 70 mg p.o. daily. 16. Ammonium lactate 1 application topically daily as needed for dry skin. 17. Ocuvite Adult 50 Plus softgel 1 capsule p.o. daily. 18. Hydrocortisone 1 application topically b.i.d. 19. Magnesium chloride enteric-coated tab 71.5/119 mg p.o. daily. 20. Hydrocerin 1 application topical b.i.d. 21. Zinc 50 mg p.o. b.i.d. DISCHARGE PLAN: Ms. Syed will be discharged to [place]. ACTIVITY: As tolerated. Fentanyl patch dosing was increased to 37 mcg and hour, changed every 72 hours. The patient has had a good response to an increased dose of fentanyl. She will follow up with pain clinic as an outpatient. Rifaximin was increased to 550 mg twice daily to help control the ammonia level. You are presently on the 33rd day of cefazolin antibiotic therapy. You have been prescribed a total of 42 days by Infectious Disease. You should follow up with them regarding your endocarditis in 1 to 2 weeks. Call their office to arrange the most convenient followup method whether in person or Telemedicine. Follow up with the pain clinic to manage as stated pain medications. Please return to nearest hospital for any chest pain, dizziness, shortness of breath, intractable pain, or any other concerning symptoms. DISCHARGE CONDITION: Stable. DISCHARGE DISPOSITION: Home. This is a summarized report of complex medical history and hospital stay. For further details, please see the entire medical record. TIME SPENT: Approximately 40 minutes on this discharge. IGGY ALFARO, MARGUERITE [id number]/CPS #: [id number] MTDD
== END 2019-08-15 15:24 | disposition swing bed (61) ==
LOC: ED 11:04 → SSU 15:07
PROVIDERS: ADMIT Internal Medicine; ATTEND Internal Medicine
DX: M87.9 Osteonecrosis, unspecified (principal); G89.4 Chronic pain syndrome; I38 Endocarditis, valve unspecified; E87.1 Hypo-osmolality and hyponatremia; K70.31 Alcoholic cirrhosis of liver with ascites; I85.00 Esophageal varices without bleeding; G25.81 Restless legs syndrome; F11.90 Opioid use, unspecified, uncomplicated; K21.9 Gastro-esophageal reflux disease without esophagitis; F41.9 Anxiety disorder, unspecified; F32.9 Major depressive disorder, single episode, unspecified; Z86.73 Personal history of transient ischemic attack (TIA), and cerebral infarction without residual deficits; Z79.899 Other long term (current) drug therapy; Z88.0 Allergy status to penicillin; Z88.6 Allergy status to analgesic agent; Z87.891 Personal history of nicotine dependence; Z66 Do not resuscitate; Z88.2 Allergy status to sulfonamides; Z88.8 Allergy status to other drugs, medicaments and biological substances; Z91.81 History of falling
CPT/HCPCS: 36415; 70450; 80053; 81003; 82140; 83735; 85025; 93306; 96365; 96366; 99283; A9270-GY; G0378; J0690

== ENCOUNTER 2019-09-27 12:54 | Inpatient (IN) ==
[2019-09-27] MEDS ORDERED: Linezolid 600 MG IVPREMIX(*) 600 MG/300 ML BAG IVPB ONE (13:06)
[2019-09-27] MEDS ORDERED: cefTRIAXone(*) 2 GM ADDV.VIAL 2 GM in NS 0.9% 100 ml BAG 100 ML IVPB ONE (13:06)
[2019-09-27 15:14] LABS: ABS Eosinophils 0.1 10^3/ul (0-0.6); ABS Lymphocytes 0.6 10^3/ul (1.0-4.8); ABS Monocytes 0.6 10^3/ul (0-0.8); Eosinophil % 1.1 %; Hematocrit 36 % (35-47); Hemoglobin 11.9 g/dL (12.0-16.0); Lymphocyte % 7.6 %; Mean Corpuscular HGB Conc 33 g/dL (31-36); Mean Corpuscular Hemoglobin 29 pg (27-31); Mean Corpuscular Volume 87 fL (80-97); Mean Platelet Volume 7.4 fL (7.4-10.4); Nucleated Red Blood Cells % 0.1; Platelet Count 230 10^3/uL (150-450); Red Blood Count 4.08 10^6 /uL (3.70-4.87); Red Cell Distribution Width 18 % (10-15); White Blood Count 8.1 10^3/uL (3.5-10.8)
[2019-09-27] MEDS ORDERED: NS 0.9% 1000 ml BAG 1,500 ML IV ONE (15:15)
[2019-09-27 15:33] LABS: Troponin I 0.01 ng/mL (<0.03)
[2019-09-27 16:14] LABS: ALT 36 U/L (7-52); Albumin 3.5 g/dL (3.2-5.2); Albumin/Globulin Ratio 0.6 (1-3); Alkaline Phosphatase 250 U/L (34-104); BUN/Creatinine Ratio 23.7 (8-20); Blood Urea Nitrogen 14 mg/dL (6-24); C Reactive Protein 124.88 mg/L (<8.01); CO2 Carbon Dioxide 19 mmol/L (22-32); Calcium 7.6 mg/dL (8.6-10.3); Chloride 98 mmol/L (101-111); EGFR African American 123.4 (>60); Globulin 6.2 g/dL (2-4); Glucose 82 mg/dL (70-100); Sodium 121 mmol/L (135-145); Total Protein 9.7 g/dL (6.4-8.9)
[2019-09-27 16:15] LABS: Anion Gap 4 mmol/L (2-11)
[2019-09-27 16:21] LABS: Activated Partial Thrombo Time 31.4 seconds (26.0-38.0); INR 1.7 (0.82-1.09)
[2019-09-27] MEDS ORDERED: Ondansetron 4 mg VIAL 2 MG/ML 2 ml VIAL IV PRN (17:26)
[2019-09-27] MEDS: fentaNYL Patch Check Q Shift NOTE FOLLOW UP SCH (22:09)
[2019-09-27] MEDS: fentaNYL PATCH 50 MCG/HR 1 PATCH TRANSDERM SCH (22:10)
[2019-09-27] MEDS: Lidocaine Patch REMOVE PATCH PATCH OFF SCH (22:16)
[2019-09-27] MEDS: Potassium Chlor 20 meq TAB.ER PO SCH (22:17)
[2019-09-27 22:37] LABS: AST Redraw 35 U/L (13-39); Potassium Redraw 3.8 mmol/L (3.5-5.0)
[2019-09-27 23:01] LABS: % Iron Saturation 12 % (15-55); Iron 29 ug/dL (50-212); Total Iron Binding Capacity 245 mcg/dL (250-450); Transferrin 175 mg/dL (203-362)
[2019-09-27 23:08] LABS: Ferritin 119.4 ng/mL (11-307)
[2019-09-28 00:25] LABS: Urine Appearance Cloudy; Urine Bilirubin Negative (Negative); Urine Blood 2+ (Negative); Urine Color Yellow; Urine Glucose Negative (Negative); Urine Ketones Negative (Negative); Urine Nitrite Negative (Negative); Urine Protein Negative (Negative); Urine Specific Gravity 1.013 (1.010-1.030); Urine Urobilinogen Positive (Negative)
[2019-09-28 00:35] LABS: Urine Bacteria Absent (Absent); Urine Red Blood Cell 3+(>10/hpf) (Absent); Urine Squamous Epithelial Cell Present (Absent); Urine White Blood Cell 1+(6-10/hpf) (Absent)
[2019-09-28] MEDS ORDERED: Linezolid 600 MG IVPREMIX(*) 600 MG/300 ML BAG IVPB SCH (03:00)
[2019-09-28 06:41] LABS: ABS Basophils 0.1 10^3/ul (0-0.2); ABS Eosinophils 0.1 10^3/ul (0-0.6); ABS Lymphocytes 0.6 10^3/ul (1.0-4.8); ABS Monocytes 0.7 10^3/ul (0-0.8); Eosinophil % 1.1 %; Hematocrit 33 % (35-47); Hemoglobin 11.1 g/dL (12.0-16.0); Lymphocyte % 7.2 %; Mean Corpuscular HGB Conc 33 g/dL (31-36); Mean Corpuscular Hemoglobin 29 pg (27-31); Mean Corpuscular Volume 87 fL (80-97); Mean Platelet Volume 7.3 fL (7.4-10.4); Platelet Count 208 10^3/uL (150-450); Red Blood Count 3.78 10^6 /uL (3.70-4.87); Red Cell Distribution Width 17 % (10-15); White Blood Count 8.3 10^3/uL (3.5-10.8)
[2019-09-28 06:59] LABS: BUN/Creatinine Ratio 22.8 (8-20); C Reactive Protein 128.6 mg/L (<8.01); Calcium 8.3 mg/dL (8.6-10.3); EGFR African American 128.4 (>60); EGFR Non-African American 106.1 (>60); Magnesium 1.7 mg/dL (1.9-2.7); Potassium 3.8 mmol/L (3.5-5.0)
[2019-09-28] MEDS: fentaNYL Patch Check Q Shift NOTE FOLLOW UP SCH ×2 (07:07→19:12)
[2019-09-28] MEDS: Multivitamins/Minerals TAB PO SCH (08:34)
[2019-09-28] MEDS: Magnesium Chloride EC 64 mgTAB PO SCH (08:35)
[2019-09-28] MEDS: Lidocaine PATCH 5% PATCH TRANSDERM SCH (08:36)
[2019-09-28] MEDS: Potassium Chlor 20 meq TAB.ER PO SCH ×3 (08:36→19:56)
[2019-09-28] MEDS ORDERED: clonazePAM 0.5 mg TAB (*) PO PRN (11:51)
[2019-09-28] MEDS: cefTRIAXone(*) 2 GM ADDV.VIAL 2 GM in NS 0.9% 100 ml BAG 100 ML IV SCH (14:01)
[2019-09-28] MEDS ORDERED: Magnesium Sulfate 2 gm BAG 2 GM/50 ML BAG IVPB ONE (16:16)
[2019-09-28] MEDS: Lidocaine Patch REMOVE PATCH PATCH OFF SCH (20:51)
[2019-09-29 06:38] LABS: ABS Eosinophils 0.1 10^3/ul (0-0.6); ABS Lymphocytes 0.8 10^3/ul (1.0-4.8); ABS Monocytes 0.6 10^3/ul (0-0.8); Eosinophil % 0.9 %; Hematocrit 33 % (35-47); Hemoglobin 10.9 g/dL (12.0-16.0); Lymphocyte % 9.7 %; Mean Corpuscular HGB Conc 33 g/dL (31-36); Mean Corpuscular Hemoglobin 29 pg (27-31); Mean Corpuscular Volume 88 fL (80-97); Mean Platelet Volume 7.2 fL (7.4-10.4); Platelet Count 228 10^3/uL (150-450); Red Blood Count 3.78 10^6 /uL (3.70-4.87); Red Cell Distribution Width 18 % (10-15); White Blood Count 8.5 10^3/uL (3.5-10.8)
[2019-09-29 06:54] LABS: BUN/Creatinine Ratio 24.1 (8-20); Calcium 8.6 mg/dL (8.6-10.3); EGFR African American 125.9 (>60); Magnesium 2.3 mg/dL (1.9-2.7); Potassium 3.9 mmol/L (3.5-5.0)
[2019-09-29] MEDS: fentaNYL Patch Check Q Shift NOTE FOLLOW UP SCH ×2 (06:58→18:58)
[2019-09-29] MEDS: Lidocaine PATCH 5% PATCH TRANSDERM SCH ×2 (09:21→19:32)
[2019-09-29] MEDS: Magnesium Chloride EC 64 mgTAB PO SCH (09:23)
[2019-09-29] MEDS: Multivitamins/Minerals TAB PO SCH (09:23)
[2019-09-29] MEDS: Potassium Chlor 20 meq TAB.ER PO SCH ×3 (09:23→19:31)
[2019-09-29] MEDS ORDERED: Furosemide 20 mg/2 ml IV VIAL IV SLOW PU ONE (10:46)
[2019-09-29] MEDS: clonazePAM 0.5 mg TAB (*) PO PRN ×2 (11:41→22:42)
[2019-09-29] MEDS: cefTRIAXone(*) 2 GM ADDV.VIAL 2 GM in NS 0.9% 100 ml BAG 100 ML IV SCH (14:14)
[2019-09-29] MEDS: Lidocaine Patch REMOVE PATCH PATCH OFF SCH (19:33)
[2019-09-30 06:25] LABS: ABS Lymphocytes 0.5 10^3/ul (1.0-4.8); ABS Monocytes 0.5 10^3/ul (0-0.8); Eosinophil % 0.6 %; Hematocrit 33 % (35-47); Hemoglobin 10.9 g/dL (12.0-16.0); Lymphocyte % 6.7 %; Mean Corpuscular HGB Conc 33 g/dL (31-36); Mean Corpuscular Hemoglobin 29 pg (27-31); Mean Corpuscular Volume 87 fL (80-97); Platelet Count 212 10^3/uL (150-450); Red Blood Count 3.76 10^6 /uL (3.70-4.87); Red Cell Distribution Width 17 % (10-15); White Blood Count 7.8 10^3/uL (3.5-10.8)
[2019-09-30 06:42] LABS: Albumin 2.7 g/dL (3.2-5.2); Albumin/Globulin Ratio 0.5 (1-3); BUN/Creatinine Ratio 22.2 (8-20); C Reactive Protein 145.53 mg/L (<8.01); Calcium 8.2 mg/dL (8.6-10.3); EGFR African American 98.1 (>60); Globulin 5.3 g/dL (2-4); Magnesium 1.9 mg/dL (1.9-2.7); Potassium 3.7 mmol/L (3.5-5.0); Total Bilirubin 0.7 mg/dL (0.2-1.0)
[2019-09-30] MEDS: fentaNYL Patch Check Q Shift NOTE FOLLOW UP SCH ×2 (06:59→19:15)
[2019-09-30] MEDS: Magnesium Chloride EC 64 mgTAB PO SCH (07:30)
[2019-09-30] MEDS: Potassium Chlor 20 meq TAB.ER PO SCH ×3 (07:30→21:06)
[2019-09-30] MEDS: Multivitamins/Minerals TAB PO SCH (07:30)
[2019-09-30] MEDS: Lidocaine PATCH 5% PATCH TRANSDERM SCH ×2 (07:30→21:08)
[2019-09-30] MEDS: ceFAZolin 2 GM PREMIX in ORs 2 GM/50 ML BAG IVPB SCH ×2 (13:33→21:08)
[2019-09-30] MEDS ORDERED: fentaNYL 100 mcg/2 ml 50 MCG/ML VIAL ONE (14:50)
[2019-09-30] MEDS ORDERED: Naloxone 0.4 mg VIAL 0.4 mg/ml 1 ml VIAL ONE (14:50)
[2019-09-30 16:06] LABS: Body Fluid Source Synovial Fluid
[2019-09-30 17:43] LABS: Body Fluid Mono 7 %
[2019-09-30] MEDS: fentaNYL PATCH 50 MCG/HR 1 PATCH TRANSDERM SCH (21:02)
[2019-09-30] MEDS: Lidocaine Patch REMOVE PATCH PATCH OFF SCH (21:08)
[2019-10-01] MEDS: ceFAZolin 2 GM PREMIX in ORs 2 GM/50 ML BAG IVPB SCH ×3 (05:37→21:37)
[2019-10-01] MEDS: fentaNYL Patch Check Q Shift NOTE FOLLOW UP SCH ×2 (07:19→18:39)
[2019-10-01] MEDS: Magnesium Chloride EC 64 mgTAB PO SCH (08:47)
[2019-10-01] MEDS: Multivitamins/Minerals TAB PO SCH (08:47)
[2019-10-01] MEDS: Potassium Chlor 20 meq TAB.ER PO SCH ×3 (08:48→21:30)
[2019-10-01] MEDS: Lidocaine PATCH 5% PATCH TRANSDERM SCH ×2 (08:49→21:28)
[2019-10-01 10:07] LABS: ABS Eosinophils 0.1 10^3/ul (0-0.6); ABS Lymphocytes 0.7 10^3/ul (1.0-4.8); ABS Monocytes 0.5 10^3/ul (0-0.8); Eosinophil % 1.8 %; Hematocrit 34 % (35-47); Hemoglobin 11.2 g/dL (12.0-16.0); Lymphocyte % 12.2 %; Mean Corpuscular HGB Conc 33 g/dL (31-36); Mean Corpuscular Hemoglobin 29 pg (27-31); Mean Corpuscular Volume 87 fL (80-97); Mean Platelet Volume 7.1 fL (7.4-10.4); Platelet Count 232 10^3/uL (150-450); Red Blood Count 3.87 10^6 /uL (3.70-4.87); Red Cell Distribution Width 18 % (10-15); White Blood Count 5.3 10^3/uL (3.5-10.8)
[2019-10-01 10:13] LABS: Calcium 8.5 mg/dL (8.6-10.3); EGFR African American 133.8 (>60); EGFR Non-African American 110.6 (>60); Magnesium 1.8 mg/dL (1.9-2.7); Potassium 3.7 mmol/L (3.5-5.0)
[2019-10-01] MEDS ORDERED: Magnesium Sulfate IV 1GM/100ML 1 GM/100 ML BAG IV ONE (10:46)
[2019-10-01 14:15] LABS: INR 1.58 (0.82-1.09)
[2019-10-01] MEDS: Lidocaine Patch REMOVE PATCH PATCH OFF SCH (21:37)
[2019-10-02] MEDS: ceFAZolin 2 GM PREMIX in ORs 2 GM/50 ML BAG IVPB SCH ×3 (05:51→23:06)
[2019-10-02] MEDS: fentaNYL Patch Check Q Shift NOTE FOLLOW UP SCH ×2 (06:32→18:38)
[2019-10-02 08:16] LABS: ABS Eosinophils 0.1 10^3/ul (0-0.6); ABS Lymphocytes 0.5 10^3/ul (1.0-4.8); ABS Monocytes 0.5 10^3/ul (0-0.8); Eosinophil % 1.5 %; Hematocrit 34 % (35-47); Hemoglobin 11.2 g/dL (12.0-16.0); Lymphocyte % 8.7 %; Mean Corpuscular HGB Conc 33 g/dL (31-36); Mean Corpuscular Hemoglobin 29 pg (27-31); Mean Corpuscular Volume 86 fL (80-97); Mean Platelet Volume 6.7 fL (7.4-10.4); Nucleated Red Blood Cells % 0.1; Platelet Count 217 10^3/uL (150-450); Red Blood Count 3.88 10^6 /uL (3.70-4.87); Red Cell Distribution Width 17 % (10-15); White Blood Count 5.7 10^3/uL (3.5-10.8)
[2019-10-02 08:24] LABS: INR 1.68 (0.82-1.09)
[2019-10-02 08:33] LABS: BUN/Creatinine Ratio 24.1 (8-20); C Reactive Protein 108.92 mg/L (<8.01); Calcium 8.4 mg/dL (8.6-10.3); EGFR African American 136.7 (>60); Potassium 3.4 mmol/L (3.5-5.0)
[2019-10-02] MEDS: Multivitamins/Minerals TAB PO SCH (10:03)
[2019-10-02] MEDS: Magnesium Chloride EC 64 mgTAB PO SCH (10:15)
[2019-10-02] MEDS: Lidocaine PATCH 5% PATCH TRANSDERM SCH ×2 (10:15→23:04)
[2019-10-02] MEDS: Potassium Chlor 20 meq TAB.ER PO SCH ×3 (10:16→23:04)
[2019-10-02 13:33] LABS: Body Fluid Source Peritonial Fluid
[2019-10-02 15:34] LABS: Body Fluid Mono 52 %
[2019-10-02] MEDS ORDERED: Rocuronium 50 mg VIAL 10 mg/ml 5 ml VIAL (50 mg) ONE (17:46)
[2019-10-02] MEDS ORDERED: fentaNYL 100 mcg/2 ml 50 MCG/ML VIAL ONE ×6 (17:46→21:06)
[2019-10-02] MEDS ORDERED: Midazolam 2 mg/2 ml VIAL 1 mg/ml 2 ml VIAL (2 mg) ONE (17:47)
[2019-10-02] MEDS ORDERED: ceFAZolin 2 GM PREMIX in ORs 2 GM/50 ML BAG ONE (17:56)
[2019-10-02] MEDS ORDERED: Naloxone 0.4 mg VIAL 0.4 mg/ml 1 ml VIAL IV PRN (20:34)
[2019-10-02] MEDS ORDERED: DiMENhydriNATE IV 50 mg/ml 1 ml VIAL IV PUSH PRN (20:34)
[2019-10-02] MEDS: fentaNYL 100 mcg/2 ml 50 MCG/ML VIAL IV PRN ×5 (20:39→21:06)
[2019-10-02] MEDS ORDERED: Ondansetron 4 mg VIAL 2 MG/ML 2 ml VIAL ONE (20:42)
[2019-10-02] MEDS ORDERED: DiMENhydriNATE IV 50 mg/ml 1 ml VIAL ONE (20:44)
[2019-10-02] MEDS: Lidocaine Patch REMOVE PATCH PATCH OFF SCH (23:05)
[2019-10-03] MEDS: ceFAZolin 2 GM PREMIX in ORs 2 GM/50 ML BAG IVPB SCH ×3 (05:29→21:31)
[2019-10-03] MEDS ORDERED: Magnesium Sulfate IV 1GM/100ML 1 GM/100 ML BAG IV ONE (07:06)
[2019-10-03] MEDS: fentaNYL Patch Check Q Shift NOTE FOLLOW UP SCH ×3 (07:14→19:39)
[2019-10-03 07:27] LABS: ABS Basophils 0.1 10^3/ul (0-0.2); ABS Lymphocytes 0.7 10^3/ul (1.0-4.8); ABS Monocytes 0.6 10^3/ul (0-0.8); Hematocrit 27 % (35-47); Hemoglobin 9.1 g/dL (12.0-16.0); Lymphocyte % 6.2 %; Mean Corpuscular HGB Conc 33 g/dL (31-36); Mean Corpuscular Hemoglobin 29 pg (27-31); Mean Corpuscular Volume 86 fL (80-97); Mean Platelet Volume 6.8 fL (7.4-10.4); Platelet Count 253 10^3/uL (150-450); Red Blood Count 3.16 10^6 /uL (3.70-4.87); Red Cell Distribution Width 17 % (10-15); White Blood Count 10.5 10^3/uL (3.5-10.8)
[2019-10-03 07:51] LABS: BUN/Creatinine Ratio 21.8 (8-20); Calcium 8.3 mg/dL (8.6-10.3); EGFR African American 89.4 (>60); EGFR Non-African American 73.9 (>60); Potassium 4.5 mmol/L (3.5-5.0)
[2019-10-03] MEDS: Multivitamins/Minerals TAB PO SCH (09:25)
[2019-10-03] MEDS: Potassium Chlor 20 meq TAB.ER PO SCH ×3 (09:26→21:34)
[2019-10-03] MEDS: Lidocaine PATCH 5% PATCH TRANSDERM SCH ×2 (09:26→21:36)
[2019-10-03] MEDS: Magnesium Chloride EC 64 mgTAB PO SCH (09:26)
[2019-10-03] MEDS ORDERED: NS 0.9% 1000 ml BAG 1,000 ML IV SCH (19:00)
[2019-10-03] MEDS: fentaNYL PATCH 50 MCG/HR 1 PATCH TRANSDERM SCH (19:38)
[2019-10-03] MEDS: Lidocaine Patch REMOVE PATCH PATCH OFF SCH (21:36)
[2019-10-04] MEDS: ceFAZolin 2 GM PREMIX in ORs 2 GM/50 ML BAG IVPB SCH ×3 (04:55→22:05)
[2019-10-04] MEDS: fentaNYL Patch Check Q Shift NOTE FOLLOW UP SCH ×2 (06:42→19:15)
[2019-10-04 08:05] LABS: Potassium 3.8 mmol/L (3.5-5.0)
[2019-10-04 08:06] LABS: BUN/Creatinine Ratio 26.6 (8-20); C Reactive Protein 137.65 mg/L (<8.01); Calcium 7.8 mg/dL (8.6-10.3); EGFR African American 112.3 (>60); EGFR Non-African American 92.8 (>60)
[2019-10-04 08:09] LABS: ABS Eosinophils 0.1 10^3/ul (0-0.6); ABS Lymphocytes 0.9 10^3/ul (1.0-4.8); ABS Monocytes 0.8 10^3/ul (0-0.8); Eosinophil % 0.5 %; Hematocrit 27 % (35-47); Hemoglobin 8.6 g/dL (12.0-16.0); Lymphocyte % 7.8 %; Mean Corpuscular HGB Conc 33 g/dL (31-36); Mean Corpuscular Hemoglobin 28 pg (27-31); Mean Corpuscular Volume 88 fL (80-97); Mean Platelet Volume 6.9 fL (7.4-10.4); Platelet Count 226 10^3/uL (150-450); Red Blood Count 3.03 10^6 /uL (3.70-4.87); Red Cell Distribution Width 17 % (10-15); White Blood Count 11.1 10^3/uL (3.5-10.8)
[2019-10-04] MEDS: Lidocaine PATCH 5% PATCH TRANSDERM SCH ×2 (08:44→22:09)
[2019-10-04] MEDS: Potassium Chlor 20 meq TAB.ER PO SCH ×3 (08:44→22:13)
[2019-10-04] MEDS: Magnesium Chloride EC 64 mgTAB PO SCH (08:44)
[2019-10-04] MEDS: Multivitamins/Minerals TAB PO SCH (08:44)
[2019-10-04] MEDS ORDERED: NS 0.9% 1000 ml BAG 1,000 ML IV SCH (10:30)
[2019-10-04] MEDS: Lidocaine Patch REMOVE PATCH PATCH OFF SCH (22:10)
[2019-10-04] MEDS: clonazePAM 0.5 mg TAB (*) PO PRN (22:13)
[2019-10-05] MEDS: ceFAZolin 2 GM PREMIX in ORs 2 GM/50 ML BAG IVPB SCH ×3 (05:01→21:56)
[2019-10-05 06:09] LABS: Hematocrit 23 % (35-47); Hemoglobin 7.5 g/dL (12.0-16.0); Mean Platelet Volume 6.8 fL (7.4-10.4); Platelet Count 195 10^3/uL (150-450)
[2019-10-05 06:25] LABS: BUN/Creatinine Ratio 26.8 (8-20); C Reactive Protein 146.27 mg/L (<8.01); Calcium 7.6 mg/dL (8.6-10.3); EGFR African American 131.1 (>60); EGFR Non-African American 108.3 (>60); Potassium 4.1 mmol/L (3.5-5.0)
[2019-10-05] MEDS: fentaNYL Patch Check Q Shift NOTE FOLLOW UP SCH ×2 (07:17→18:55)
[2019-10-05] MEDS: Lidocaine PATCH 5% PATCH TRANSDERM SCH ×2 (07:55→21:49)
[2019-10-05] MEDS: Magnesium Chloride EC 64 mgTAB PO SCH (07:57)
[2019-10-05] MEDS: Multivitamins/Minerals TAB PO SCH (07:58)
[2019-10-05] MEDS: Potassium Chlor 20 meq TAB.ER PO SCH ×3 (07:59→21:48)
[2019-10-05] MEDS ORDERED: Polyethylene Glycol 3350 17 GM PACKET PO PRN (12:53)
[2019-10-05 17:55] LABS: White Blood Count 7.9 10^3/uL (3.5-10.8)
[2019-10-05] MEDS ORDERED: NS 0.9% 1000 ml BAG 1,000 ML IV SCH (18:00)
[2019-10-05] MEDS: Lidocaine Patch REMOVE PATCH PATCH OFF SCH (21:50)
[2019-10-06] MEDS: ceFAZolin 2 GM PREMIX in ORs 2 GM/50 ML BAG IVPB SCH ×3 (05:36→23:27)
[2019-10-06] MEDS: fentaNYL Patch Check Q Shift NOTE FOLLOW UP SCH ×2 (06:39→18:53)
[2019-10-06 07:21] LABS: ABS Basophils 0.1 10^3/ul (0-0.2); ABS Eosinophils 0.2 10^3/ul (0-0.6); ABS Lymphocytes 0.8 10^3/ul (1.0-4.8); ABS Monocytes 0.5 10^3/ul (0-0.8); Eosinophil % 2.9 %; Hematocrit 25 % (35-47); Hemoglobin 8.2 g/dL (12.0-16.0); Lymphocyte % 11.6 %; Mean Corpuscular HGB Conc 33 g/dL (31-36); Mean Corpuscular Hemoglobin 30 pg (27-31); Mean Corpuscular Volume 91 fL (80-97); Mean Platelet Volume 7.2 fL (7.4-10.4); Platelet Count 197 10^3/uL (150-450); Red Blood Count 2.76 10^6 /uL (3.70-4.87); Red Cell Distribution Width 18 % (10-15); White Blood Count 6.9 10^3/uL (3.5-10.8)
[2019-10-06 07:38] LABS: BUN/Creatinine Ratio 26.9 (8-20); C Reactive Protein 113.99 mg/L (<8.01); Calcium 7.8 mg/dL (8.6-10.3); EGFR African American 142.8 (>60); Potassium 4.6 mmol/L (3.5-5.0)
[2019-10-06] MEDS: Magnesium Chloride EC 64 mgTAB PO SCH (09:05)
[2019-10-06] MEDS: Multivitamins/Minerals TAB PO SCH (09:05)
[2019-10-06] MEDS: Potassium Chlor 20 meq TAB.ER PO SCH ×3 (09:08→19:55)
[2019-10-06] MEDS: Lidocaine PATCH 5% PATCH TRANSDERM SCH ×2 (09:14→19:56)
[2019-10-06] MEDS: fentaNYL PATCH 50 MCG/HR 1 PATCH TRANSDERM SCH (19:35)
[2019-10-06] MEDS: Lidocaine Patch REMOVE PATCH PATCH OFF SCH (19:56)
[2019-10-07] MEDS: ceFAZolin 2 GM PREMIX in ORs 2 GM/50 ML BAG IVPB SCH ×3 (05:55→22:26)
[2019-10-07 06:14] LABS: Hematocrit 24 % (35-47); Hemoglobin 7.7 g/dL (12.0-16.0); Mean Platelet Volume 7.2 fL (7.4-10.4); Platelet Count 208 10^3/uL (150-450)
[2019-10-07 06:24] LABS: BUN/Creatinine Ratio 24.1 (8-20); C Reactive Protein 84.44 mg/L (<8.01); Calcium 7.7 mg/dL (8.6-10.3); EGFR African American 125.9 (>60); Magnesium 1.9 mg/dL (1.9-2.7); Potassium 4.3 mmol/L (3.5-5.0)
[2019-10-07] MEDS: fentaNYL Patch Check Q Shift NOTE FOLLOW UP SCH ×2 (07:41→19:54)
[2019-10-07] MEDS: Multivitamins/Minerals TAB PO SCH (11:10)
[2019-10-07] MEDS: Magnesium Chloride EC 64 mgTAB PO SCH (11:11)
[2019-10-07] MEDS: Potassium Chlor 20 meq TAB.ER PO SCH ×3 (11:11→20:16)
[2019-10-07] MEDS: Lidocaine PATCH 5% PATCH TRANSDERM SCH ×3 (11:12→20:22)
[2019-10-07] MEDS: Lactulose 30 ml UDC PO SCH (20:13)
[2019-10-07] MEDS: Lidocaine Patch REMOVE PATCH PATCH OFF SCH (20:22)
[2019-10-08] MEDS: ceFAZolin 2 GM PREMIX in ORs 2 GM/50 ML BAG IVPB SCH ×2 (05:59→13:48)
[2019-10-08 06:21] LABS: ABS Basophils 0.1 10^3/ul (0-0.2); ABS Eosinophils 0.2 10^3/ul (0-0.6); ABS Monocytes 0.6 10^3/ul (0-0.8); Eosinophil % 2.4 %; Hematocrit 23 % (35-47); Hemoglobin 7.7 g/dL (12.0-16.0); Mean Corpuscular HGB Conc 34 g/dL (31-36); Mean Corpuscular Hemoglobin 30 pg (27-31); Mean Corpuscular Volume 88 fL (80-97); Mean Platelet Volume 7.2 fL (7.4-10.4); Platelet Count 193 10^3/uL (150-450); Red Blood Count 2.59 10^6 /uL (3.70-4.87); Red Cell Distribution Width 18 % (10-15)
[2019-10-08 06:39] LABS: BUN/Creatinine Ratio 24.1 (8-20); Calcium 7.7 mg/dL (8.6-10.3); EGFR African American 136.7 (>60); Potassium 4.2 mmol/L (3.5-5.0)
[2019-10-08] MEDS: fentaNYL Patch Check Q Shift NOTE FOLLOW UP SCH (07:08)
[2019-10-08] MEDS: Lactulose 30 ml UDC PO SCH (08:48)
[2019-10-08] MEDS: Magnesium Chloride EC 64 mgTAB PO SCH (08:48)
[2019-10-08] MEDS: Lidocaine PATCH 5% PATCH TRANSDERM SCH (08:48)
[2019-10-08] MEDS: Multivitamins/Minerals TAB PO SCH (08:49)
[2019-10-08] MEDS: Potassium Chlor 20 meq TAB.ER PO SCH ×2 (08:49→13:47)
[2019-10-08 16:07] VITALS: BP 98/58
== END 2019-10-08 17:08 | DRG 710 ==
LOC: ED 12:54 → MEDTELE 17:26
PROVIDERS: ADMIT Hospitalist; ATTEND Internal Medicine

== ENCOUNTER 2021-10-11 10:27 | Inpatient (IN) ==
[2021-10-11] MEDS ORDERED: Furosemide 40 mg/4 ml IV VIAL IV SLOW PU ONE (11:36)
[2021-10-11] MEDS ORDERED: HYDROmorphone 1 MG/1 ML SYRINGE IV SLOW PU ONE (11:36)
[2021-10-11] MEDS ORDERED: ceFAZolin 2 GM PREMIX 2 GM/50 ML BAG IV ONE (11:41)
[2021-10-11 11:52] LABS: ABS Eosinophils 0.1 10^3/ul (0-0.6); ABS Lymphocytes 0.7 10^3/ul (1.0-4.8); ABS Monocytes 0.4 10^3/ul (0-0.8); ABS Neutrophils 4.2 10^3/ul (1.5-7.7); Eosinophil % 2.5 %; Hematocrit 39 % (35-47); Hemoglobin 12.7 g/dL (12.0-16.0); Lymphocyte % 12.6 %; Mean Corpuscular HGB Conc 33 g/dL (31-36); Mean Corpuscular Hemoglobin 31 pg (27-31); Mean Corpuscular Volume 95 fL (80-97); Mean Platelet Volume 8.1 fL (7.4-10.4); Nucleated Red Blood Cells % 0.1; Platelet Count 119 10^3/uL (150-450); Red Blood Count 4.11 10^6 /uL (3.70-4.87); Red Cell Distribution Width 18 % (10-15); White Blood Count 5.5 10^3/uL (3.5-10.8)
[2021-10-11 12:37] LABS: Albumin 3.2 g/dL (3.2-5.2); Albumin/Globulin Ratio 0.8 (1-3); Potassium 3.5 mmol/L (3.5-5.0); Total Bilirubin 1.1 mg/dL (0.2-1.0); Total Protein 7.2 g/dL (6.4-8.9); eGFR CKD-EPI 94.5 (>60)
[2021-10-11 13:28] LABS: High Sensitivity Troponin 1 Hr 6 pg/mL (<15)
[2021-10-11 13:29] LABS: C Reactive Protein 89.48 mg/L (<8.01)
[2021-10-11 16:10] LABS: Direct Bilirubin 0.4 mg/dL (0.03-0.18); Indirect Bilirubin 0.7 mg/dL (0.3-1.0)
[2021-10-11] MEDS ORDERED: Dextrose 50% Syringe 50 ml 25 GM/50 ML SYRINGE IV PUSH PRN (16:11)
[2021-10-11 16:53] LABS: Urine Appearance Clear; Urine Bilirubin Negative (Negative); Urine Blood Negative (Negative); Urine Color Yellow; Urine Glucose Negative (Negative); Urine Ketones Negative (Negative); Urine Nitrite Negative (Negative); Urine Protein Negative (Negative); Urine Specific Gravity 1.011 (1.002-1.030); Urine Urobilinogen Negative (Negative)
[2021-10-11] MEDS ORDERED: Heparin 5000 UNITS/ML 1 mL VIAL SUBCUT ONE (17:53)
[2021-10-11] MEDS: cefTRIAXone 1 gm/50 mL D5W 1 GM/50 ML BAG IV SCH (19:30)
[2021-10-11 20:40] LABS: INR 1.41 (0.86-1.15)
[2021-10-11] MEDS: DOXYcycline 100 MG in NS 0.9% 250 ml 250 ML IVPB SCH (20:40)
[2021-10-11] MEDS: Cholecalciferol (VIT D3) 1,000 unit TAB PO SCH (20:41)
[2021-10-11] MEDS: Calcium Carb (TUMS) 500 mg CHEW TAB PO SCH (20:44)
[2021-10-11] MEDS: C E ZINC COPPER OMEGA3S LUT PO SCH (20:44)
[2021-10-11] MEDS ORDERED: Enoxaparin 40 MG/0.4 ML SYR SUBCUT SCH (21:00)
[2021-10-11] MEDS ORDERED: fentaNYL PATCH 50 MCG/HR 1 PATCH TRANSDERM SCH (21:00)
[2021-10-12 05:30] LABS: Hematocrit 36 % (35-47); Hemoglobin 11.6 g/dL (12.0-16.0); Mean Corpuscular HGB Conc 33 g/dL (31-36); Mean Corpuscular Hemoglobin 31 pg (27-31); Mean Corpuscular Volume 95 fL (80-97); Mean Platelet Volume 8.1 fL (7.4-10.4); Platelet Count 116 10^3/uL (150-450); Red Blood Count 3.75 10^6 /uL (3.70-4.87); Red Cell Distribution Width 18 % (10-15); White Blood Count 4.4 10^3/uL (3.5-10.8)
[2021-10-12 05:33] LABS: INR 1.42 (0.86-1.15)
[2021-10-12 05:53] LABS: Albumin 2.9 g/dL (3.2-5.2); Albumin/Globulin Ratio 0.8 (1-3); C Reactive Protein 82.57 mg/L (<8.01); Calcium 7.9 mg/dL (8.6-10.3); Globulin 3.7 g/dL (2-4); Magnesium 1.8 mg/dL (1.9-2.7); Potassium 2.9 mmol/L (3.5-5.0); Total Bilirubin 1.1 mg/dL (0.2-1.0); Total Protein 6.6 g/dL (6.4-8.9); eGFR CKD-EPI 82.7 (>60)
[2021-10-12] MEDS ORDERED: Magnesium Sulfate 2 gm BAG 2 GM/50 ML BAG IVPB ONE (06:21)
[2021-10-12] MEDS ORDERED: Potassium Chlor 20 meq TAB.ER PO ONE ×2 (06:22→08:00)
[2021-10-12] MEDS: fentaNYL Patch Check Q Shift NOTE FOLLOW UP SCH ×2 (06:58→19:00)
[2021-10-12] MEDS: Calcium Carb (TUMS) 500 mg CHEW TAB PO SCH ×2 (09:09→19:46)
[2021-10-12] MEDS: DOXYcycline 100 MG in NS 0.9% 250 ml 250 ML IVPB SCH ×2 (09:09→19:47)
[2021-10-12] MEDS: Lactulose 30 ml UDC PO SCH (12:08)
[2021-10-12] MEDS: HYDROmorphone 0.5 MG/0.5 ML SYRINGE IV SLOW PU PRN (15:46)
[2021-10-12 16:26] LABS: Body Fluid Appearance Cloudy; Body Fluid Color Yellow; Body Fluid Source Peritonial Fluid
[2021-10-12] MEDS: cefTRIAXone 1 gm/50 mL D5W 1 GM/50 ML BAG IV SCH (17:45)
[2021-10-12] MEDS: Cholecalciferol (VIT D3) 1,000 unit TAB PO SCH (19:45)
[2021-10-12] MEDS: C E ZINC COPPER OMEGA3S LUT PO SCH (19:46)
[2021-10-12 20:21] LABS: Body Fluid WBC 103 /mcL
[2021-10-12] MEDS: Enoxaparin 40 MG/0.4 ML SYR SUBCUT SCH (20:22)
[2021-10-12 20:41] LABS: Body Fluid Mono 50 %; Body Fluid Other Cells 18; Body Fluid Total Cells Counted 131
[2021-10-13] MEDS: HYDROmorphone 0.5 MG/0.5 ML SYRINGE IV SLOW PU PRN (00:25)
[2021-10-13 06:14] LABS: Hematocrit 38 % (35-47); Hemoglobin 12.3 g/dL (12.0-16.0); Mean Corpuscular HGB Conc 33 g/dL (31-36); Mean Corpuscular Hemoglobin 31 pg (27-31); Mean Corpuscular Volume 95 fL (80-97); Mean Platelet Volume 8.2 fL (7.4-10.4); Platelet Count 118 10^3/uL (150-450); Red Blood Count 3.97 10^6 /uL (3.70-4.87); Red Cell Distribution Width 18 % (10-15); White Blood Count 5.1 10^3/uL (3.5-10.8)
[2021-10-13 06:29] LABS: Albumin 3.1 g/dL (3.2-5.2); Albumin/Globulin Ratio 0.8 (1-3); Calcium 8.6 mg/dL (8.6-10.3); Globulin 3.9 g/dL (2-4); Potassium 3.3 mmol/L (3.5-5.0); Total Bilirubin 0.8 mg/dL (0.2-1.0); eGFR CKD-EPI 75.6 (>60)
[2021-10-13] MEDS ORDERED: Potassium Chlor 20 meq TAB.ER PO ONE (06:46)
[2021-10-13] MEDS: fentaNYL Patch Check Q Shift NOTE FOLLOW UP SCH ×2 (06:56→18:53)
[2021-10-13] MEDS: DOXYcycline 100 MG in NS 0.9% 250 ml 250 ML IVPB SCH ×2 (09:20→20:31)
[2021-10-13] MEDS: Calcium Carb (TUMS) 500 mg CHEW TAB PO SCH ×2 (09:32→20:32)
[2021-10-13] MEDS: Lactulose 30 ml UDC PO SCH (10:40)
[2021-10-13] MEDS: Collagenase 250 units/gm OINT 1 tube TOPICAL SCH (10:56)
[2021-10-13] MEDS ORDERED: Furosemide 20 mg/2 ml IV VIAL IV ONE (14:44)
[2021-10-13] MEDS ORDERED: Furosemide 20 mg/2 ml IV VIAL IV SLOW PU ONE (17:22)
[2021-10-13] MEDS: cefTRIAXone 1 gm/50 mL D5W 1 GM/50 ML BAG IV SCH (18:08)
[2021-10-13] MEDS: Cholecalciferol (VIT D3) 1,000 unit TAB PO SCH (20:32)
[2021-10-13] MEDS: C E ZINC COPPER OMEGA3S LUT PO SCH (20:33)
[2021-10-13] MEDS: Enoxaparin 40 MG/0.4 ML SYR SUBCUT SCH (20:33)
[2021-10-14 06:03] LABS: Albumin/Globulin Ratio 0.8 (1-3); Calcium 8.2 mg/dL (8.6-10.3); Globulin 3.9 g/dL (2-4); Magnesium 1.7 mg/dL (1.9-2.7); Potassium 3.3 mmol/L (3.5-5.0); Total Bilirubin 0.8 mg/dL (0.2-1.0); Total Protein 6.9 g/dL (6.4-8.9); eGFR CKD-EPI 94.5 (>60)
[2021-10-14] MEDS ORDERED: Magnesium Sulfate IV 3 GM in NS 0.9% 100 ml BAG 100 ML IVPB ONE (06:42)
[2021-10-14] MEDS ORDERED: Potassium Chlor 20 meq TAB.ER PO ONE ×2 (06:43→08:00)
[2021-10-14] MEDS ORDERED: Magnesium Sulfate 1 GM IV 1 GM/100 ML BAG IV ONE (07:00)
[2021-10-14] MEDS: fentaNYL Patch Check Q Shift NOTE FOLLOW UP SCH (07:13)
[2021-10-14] MEDS ORDERED: Magnesium Sulfate 2 GM IV (Premix) IVPB ONE (07:30)
[2021-10-14 08:12] VITALS: BP 119/65
[2021-10-14] MEDS: Calcium Carb (TUMS) 500 mg CHEW TAB PO SCH (08:21)
[2021-10-14 11:02] LABS: Lactate Dehydrogenase, BF 48 U/L
[2021-10-14] MEDS: DOXYcycline 100 MG in NS 0.9% 250 ml 250 ML IVPB SCH (11:03)
[2021-10-14] MEDS: Collagenase 250 units/gm OINT 1 tube TOPICAL SCH (11:04)
[2021-10-14] MEDS: Lactulose 30 ml UDC PO SCH (12:48)
[2021-10-15] MEDS ORDERED: fentaNYL PATCH 50 MCG/HR 1 PATCH TRANSDERM SCH (06:00)
[2021-10-15 10:09] LABS: Glucose, BF 193 mg/dL
[2021-10-15 10:10] LABS: Albumin, BF 0.8 g/dL; Fluid Type, Albumin PERITONEAL
[2021-10-15 10:11] LABS: Fluid Type, Protein, Total PERITONEAL; Total Protein, BF 1.7 g/dL
== END 2021-10-14 14:10 | disposition home or self-care (01) | DRG 433 ==
LOC: SUATTDRO → ED 10:27 → EDHOLD 15:26 → SUATTDRO 15:26 → EDHOLD 18:16 → MED 18:20
PROVIDERS: ADMIT Family Medicine; ATTEND Internal Medicine

== ENCOUNTER 2023-04-14 09:23 | Inpatient (IN) ==
[2023-04-14] MEDS ORDERED: fentaNYL 100 mcg/2 ml 50 MCG/ML VIAL IV SLOW PU ONE ×2 (10:13→15:36)
[2023-04-14] MEDS ORDERED: DOXYcycline 100 MG in NS 0.9% 250 ml 250 ML IVPB ONE (10:13)
[2023-04-14] MEDS ORDERED: Cefepime 1 GM in Dextrose 1 GM/50 ML BAG IV ONE (10:13)
[2023-04-14 10:58] LABS: ABS Eosinophils 0.1 10^3/uL (0.0-0.5); ABS Lymphocytes 0.6 10^3/uL (1.0-4.8); ABS Monocytes 0.5 10^3/uL (0.0-0.9); ABS Neutrophils 16.4 10^3/uL (1.5-7.6); ABS Nucleated RBC 0.01 10^3/ul; Eosinophil % 0.6 %; Hematocrit 38.3 % (35-45); Hemoglobin 12.7 g/dL (11.5-14.3); Lymphocyte % 3.3 %; Mean Corpuscular Hemoglobin 30.7 pg (27-33); Mean Corpuscular Hgb Conc 33.3 g/dL (31-36); Mean Corpuscular Volume 92.2 fL (80-97); Mean Platelet Volume 7.4 fL (7.5-11.2); Nucleated Red Blood Cells % 0.1 %/100WBC (0.0-0.8); Platelet Count 212 10^3/uL (150-450); Red Blood Count 4.15 10^6/uL (3.63-4.92); Red Cell Distribution Width 17.1 % (12-17); White Blood Count 17.7 10^3/uL (3.8-11.8)
[2023-04-14] MEDS ORDERED: HYDROmorphone 0.5 MG/0.5 ML SYRINGE IV ONE (11:45)
[2023-04-14 11:47] LABS: ALT 19 U/L (7-52); Albumin 3.5 g/dL (3.2-5.2); Albumin/Globulin Ratio 0.6 (1-3); Alkaline Phosphatase 179 U/L (35-149); Blood Urea Nitrogen 12 mg/dL (6-24); C Reactive Protein 92.72 mg/L (<8.01); CO2 Carbon Dioxide 22 mmol/L (22-32); Calcium 8.4 mg/dL (8.6-10.3); Chloride 98 mmol/L (101-111); Creatinine, Serum 0.73 mg/dL (0.51-0.95); Glucose 105 mg/dL (70-100); Sodium 128 mmol/L (135-145); Total Bilirubin 1.6 mg/dL (0.2-1.0); Total Protein 9.5 g/dL (6.4-8.9); eGFR CKD-EPI 88.4 (>60)
[2023-04-14] MEDS ORDERED: Lactated Ringers 1000 ml BAG 1,000 ML IV ONE (11:47)
[2023-04-14 14:03] LABS: Activated Partial Thrombo Time 36.3 seconds (26.0-38.0); INR 1.42 (0.83-1.13)
[2023-04-14 14:12] LABS: Potassium Redraw 3.6 mmol/L (3.5-5.0)
[2023-04-14] MEDS ORDERED: cefTRIAXone 1 gm/50 mL D5W 1 GM/50 ML BAG IV SCH (16:15)
[2023-04-14] MEDS ORDERED: Ammonium Lactate 12% 1 APPLIC TUBE TOPICAL PRN (16:32)
[2023-04-14] MEDS ORDERED: Iohexol 350 (CONTRAST) 500 ML MDV IV ONE (17:37)
[2023-04-14] MEDS ORDERED: Triamcinolone 0.025% OINT 15 GM TUBE TOPICAL PRN (20:01)
[2023-04-14] MEDS ORDERED: Vancomycin 1,250 MG in NS 0.9% 250 ml 250 ML IVPB SCH (21:00)
[2023-04-14 22:52] LABS: Osmolality Serum 284 mOsm/kg (275-295)
[2023-04-14] MEDS: Cefepime 2 GM in Dextrose 2 GM/50 ML BAG IV SCH (23:09)
[2023-04-14] MEDS: Enoxaparin 80 MG/0.8 ML SYR SUBCUT SCH (23:14)
[2023-04-14] MEDS: Lactulose 30 ml UDC PO SCH (23:17)
[2023-04-14] MEDS: Silver Sulfadiazine 1% 85 GM TOPICAL SCH (23:28)
[2023-04-14] MEDS: Zinc Oxide 16% PASTE (Butt Paste) 30 gm TUBE TOPICAL SCH (23:29)
[2023-04-15] MEDS: Linezolid 600 MG IVPREMIX(*) 600 MG/300 ML BAG IVPB SCH ×2 (00:19→08:43)
[2023-04-15] MEDS ORDERED: Dextrose 50% Syringe 50 ml 25 GM/50 ML SYRINGE IV PUSH PRN (02:10)
[2023-04-15] MEDS: Lactulose 30 ml UDC PO SCH ×6 (02:51→22:50)
[2023-04-15] MEDS: Cefepime 2 GM in Dextrose 2 GM/50 ML BAG IV SCH (05:15)
[2023-04-15] MEDS: Enoxaparin 80 MG/0.8 ML SYR SUBCUT SCH ×2 (06:20→18:09)
[2023-04-15 07:01] LABS: ABS Basophils 0.1 10^3/uL (0.0-0.1); ABS Eosinophils 0.3 10^3/uL (0.0-0.5); ABS Lymphocytes 0.7 10^3/uL (1.0-4.8); ABS Monocytes 0.5 10^3/uL (0.0-0.9); ABS Neutrophils 4.7 10^3/uL (1.5-7.6); ABS Nucleated RBC 0.01 10^3/ul; Eosinophil % 4.2 %; Hematocrit 36.5 % (35-45); Lymphocyte % 10.8 %; Mean Corpuscular Hemoglobin 30.8 pg (27-33); Mean Corpuscular Hgb Conc 32.9 g/dL (31-36); Mean Corpuscular Volume 93.6 fL (80-97); Mean Platelet Volume 7.6 fL (7.5-11.2); Nucleated Red Blood Cells % 0.1 %/100WBC (0.0-0.8); Platelet Count 158 10^3/uL (150-450); Red Cell Distribution Width 16.3 % (12-17); White Blood Count 6.1 10^3/uL (3.8-11.8)
[2023-04-15 07:16] LABS: Calcium 8.2 mg/dL (8.6-10.3); Creatinine, Serum 0.74 mg/dL (0.51-0.95); Potassium 3.4 mmol/L (3.5-5.0)
[2023-04-15] MEDS: fentaNYL Patch Check Q Shift NOTE FOLLOW UP SCH ×2 (08:46→19:19)
[2023-04-15] MEDS: fentaNYL PATCH 50 MCG/HR 1 PATCH TRANSDERM SCH (08:47)
[2023-04-15] MEDS: Senna TAB 8.6 mg TAB PO SCH (08:49)
[2023-04-15] MEDS ORDERED: Potassium Chlor 20 meq TAB.ER PO ONE (08:51)
[2023-04-15] MEDS: Silver Sulfadiazine 1% 85 GM TOPICAL SCH ×2 (08:59→22:54)
[2023-04-15] MEDS ORDERED: DOXYcycline 100 MG in NS 0.9% 250 ml 250 ML IVPB SCH (09:00)
[2023-04-15] MEDS: Zinc Oxide 16% PASTE (Butt Paste) 30 gm TUBE TOPICAL SCH (09:00)
[2023-04-15] MEDS ORDERED: ALENDRONATE 70 MG PO SCH (09:00)
[2023-04-15] MEDS: CHLORHEXIDINE TOPICAL SCH (09:01)
[2023-04-15 09:39] LABS: Albumin 2.9 g/dL (3.2-5.2); Albumin/Globulin Ratio 0.6 (1-3); Direct Bilirubin 0.4 mg/dL (0.03-0.18); Globulin 4.9 g/dL (2-4); Indirect Bilirubin 0.8 mg/dL (0.3-1.0); Magnesium 1.9 mg/dL (1.9-2.7); Total Bilirubin 1.2 mg/dL (0.2-1.0); Total Protein 7.8 g/dL (6.4-8.9)
[2023-04-15] MEDS: ceFAZolin 2 GM in NS PREMIX 2 GM/100 ML BAG IVPB SCH ×2 (12:03→17:30)
[2023-04-16] MEDS: ceFAZolin 2 GM in NS PREMIX 2 GM/100 ML BAG IVPB SCH ×3 (00:26→17:34)
[2023-04-16] MEDS: Lactulose 30 ml UDC PO SCH ×5 (01:31→17:37)
[2023-04-16] MEDS: Enoxaparin 80 MG/0.8 ML SYR SUBCUT SCH ×2 (05:43→17:37)
[2023-04-16 07:15] LABS: ABS Basophils 0.1 10^3/uL (0.0-0.1); ABS Eosinophils 0.2 10^3/uL (0.0-0.5); ABS Lymphocytes 0.6 10^3/uL (1.0-4.8); ABS Monocytes 0.5 10^3/uL (0.0-0.9); ABS Neutrophils 2.9 10^3/uL (1.5-7.6); ABS Nucleated RBC 0.01 10^3/ul; Eosinophil % 4.5 %; Hematocrit 34.9 % (35-45); Hemoglobin 11.7 g/dL (11.5-14.3); Lymphocyte % 14.6 %; Mean Corpuscular Hemoglobin 31.1 pg (27-33); Mean Corpuscular Hgb Conc 33.5 g/dL (31-36); Mean Platelet Volume 7.8 fL (7.5-11.2); Nucleated Red Blood Cells % 0.1 %/100WBC (0.0-0.8); Platelet Count 151 10^3/uL (150-450); Red Blood Count 3.75 10^6/uL (3.63-4.92); Red Cell Distribution Width 16.3 % (12-17); White Blood Count 4.3 10^3/uL (3.8-11.8)
[2023-04-16] MEDS: fentaNYL Patch Check Q Shift NOTE FOLLOW UP SCH ×2 (07:29→20:22)
[2023-04-16 07:34] LABS: Albumin 2.6 g/dL (3.2-5.2); Albumin/Globulin Ratio 0.6 (1-3); Calcium 7.8 mg/dL (8.6-10.3); Creatinine, Serum 0.78 mg/dL (0.51-0.95); Globulin 4.7 g/dL (2-4); Magnesium 1.7 mg/dL (1.9-2.7); Potassium 2.9 mmol/L (3.5-5.0); Total Bilirubin 0.8 mg/dL (0.2-1.0); Total Protein 7.3 g/dL (6.4-8.9); eGFR CKD-EPI 81.7 (>60)
[2023-04-16] MEDS ORDERED: Potassium Chlor 20 meq TAB.ER PO ONE (08:21)
[2023-04-16] MEDS ORDERED: Magnesium Sulfate 2 gm BAG 2 GM/50 ML BAG IVPB ONE (08:22)
[2023-04-16 08:54] LABS: C Reactive Protein 103.99 mg/L (<8.01)
[2023-04-16] MEDS: Senna TAB 8.6 mg TAB PO SCH (09:44)
[2023-04-16] MEDS: Silver Sulfadiazine 1% 85 GM TOPICAL SCH ×2 (11:22→23:59)
[2023-04-16] MEDS: Zinc Oxide 16% PASTE (Butt Paste) 30 gm TUBE TOPICAL SCH (11:22)
[2023-04-16] MEDS: CHLORHEXIDINE TOPICAL SCH (11:22)
[2023-04-16] MEDS: KCL 20 MEQ/100 ML IVPREMIX 20 MEQ/100 ML BAG IV SCH ×2 (12:34→15:29)
[2023-04-16 19:43] LABS: Calcium 7.8 mg/dL (8.6-10.3); Potassium 3.4 mmol/L (3.5-5.0); eGFR CKD-EPI 60.6 (>60)
[2023-04-17] MEDS: ceFAZolin 2 GM in NS PREMIX 2 GM/100 ML BAG IVPB SCH ×3 (01:06→17:36)
[2023-04-17] MEDS: Lactulose 30 ml UDC PO SCH ×7 (03:50→21:01)
[2023-04-17] MEDS: Enoxaparin 80 MG/0.8 ML SYR SUBCUT SCH ×2 (06:57→08:23)
[2023-04-17 07:04] LABS: ABS Basophils 0.1 10^3/uL (0.0-0.1); ABS Eosinophils 0.2 10^3/uL (0.0-0.5); ABS Lymphocytes 0.7 10^3/uL (1.0-4.8); ABS Monocytes 0.5 10^3/uL (0.0-0.9); ABS Neutrophils 2.9 10^3/uL (1.5-7.6); ABS Nucleated RBC 0.01 10^3/ul; Eosinophil % 4.3 %; Hematocrit 37.4 % (35-45); Hemoglobin 12.2 g/dL (11.5-14.3); Lymphocyte % 15.5 %; Mean Corpuscular Hemoglobin 30.7 pg (27-33); Mean Corpuscular Hgb Conc 32.7 g/dL (31-36); Mean Platelet Volume 7.7 fL (7.5-11.2); Nucleated Red Blood Cells % 0.2 %/100WBC (0.0-0.8); Platelet Count 147 10^3/uL (150-450); Red Blood Count 3.97 10^6/uL (3.63-4.92); Red Cell Distribution Width 16.1 % (12-17); White Blood Count 4.3 10^3/uL (3.8-11.8)
[2023-04-17] MEDS ORDERED: Potassium Chlor 20 meq TAB.ER PO ONE (07:09)
[2023-04-17 07:40] LABS: Calcium 7.8 mg/dL (8.6-10.3); Creatinine, Serum 0.83 mg/dL (0.51-0.95); Magnesium 1.9 mg/dL (1.9-2.7); Potassium 3.1 mmol/L (3.5-5.0); eGFR CKD-EPI 75.8 (>60)
[2023-04-17] MEDS: fentaNYL Patch Check Q Shift NOTE FOLLOW UP SCH ×2 (08:04→20:09)
[2023-04-17] MEDS: Senna TAB 8.6 mg TAB PO SCH (08:10)
[2023-04-17] MEDS: CHLORHEXIDINE TOPICAL SCH (08:18)
[2023-04-17] MEDS: Potassium Chlor 20 meq TAB.ER PO SCH ×3 (11:18→20:59)
[2023-04-17] MEDS ORDERED: Lidocaine 4% TOPICAL 50 ML TOP.SOLN TOPICAL PRN (12:56)
[2023-04-17] MEDS: Silver Sulfadiazine 1% 85 GM TOPICAL SCH ×2 (14:26→20:59)
[2023-04-17] MEDS: Zinc Oxide 16% PASTE (Butt Paste) 30 gm TUBE TOPICAL SCH (14:26)
[2023-04-18] MEDS: ceFAZolin 2 GM in NS PREMIX 2 GM/100 ML BAG IVPB SCH ×2 (00:52→11:01)
[2023-04-18] MEDS: Lactulose 30 ml UDC PO SCH ×4 (02:47→14:22)
[2023-04-18 06:27] LABS: ABS Eosinophils 0.1 10^3/uL (0.0-0.5); ABS Lymphocytes 0.7 10^3/uL (1.0-4.8); ABS Monocytes 0.4 10^3/uL (0.0-0.9); ABS Neutrophils 2.8 10^3/uL (1.5-7.6); Eosinophil % 2.7 %; Hematocrit 38.8 % (35-45); Hemoglobin 12.9 g/dL (11.5-14.3); Lymphocyte % 16.9 %; Mean Corpuscular Hemoglobin 30.7 pg (27-33); Mean Corpuscular Hgb Conc 33.1 g/dL (31-36); Mean Corpuscular Volume 92.7 fL (80-97); Mean Platelet Volume 7.7 fL (7.5-11.2); Nucleated Red Blood Cells % 0.1 %/100WBC (0.0-0.8); Platelet Count 177 10^3/uL (150-450); Red Blood Count 4.19 10^6/uL (3.63-4.92); Red Cell Distribution Width 16.6 % (12-17)
[2023-04-18 06:44] LABS: Calcium 8.1 mg/dL (8.6-10.3); Creatinine, Serum 0.75 mg/dL (0.51-0.95); Magnesium 1.8 mg/dL (1.9-2.7); Potassium 3.5 mmol/L (3.5-5.0); eGFR CKD-EPI 85.6 (>60)
[2023-04-18] MEDS: fentaNYL Patch Check Q Shift NOTE FOLLOW UP SCH (06:59)
[2023-04-18] MEDS ORDERED: Magnesium Sulf 4 GM/100 ML IV 4,000 MG/100 ML BAG IVPB ONE (07:39)
[2023-04-18] MEDS ORDERED: Magnesium Sulfate 2 gm BAG 2 GM/50 ML BAG IVPB ONE (07:40)
[2023-04-18] MEDS ORDERED: MAGNESIUM CHLORIDE 71.5 MG PO SCH (09:00)
[2023-04-18] MEDS: fentaNYL PATCH 50 MCG/HR 1 PATCH TRANSDERM SCH (09:14)
[2023-04-18] MEDS: Potassium Chlor 20 meq TAB.ER PO SCH ×2 (09:26→14:23)
[2023-04-18] MEDS: CHLORHEXIDINE TOPICAL SCH (09:35)
[2023-04-18] MEDS: Senna TAB 8.6 mg TAB PO SCH (09:36)
[2023-04-18] MEDS: Silver Sulfadiazine 1% 85 GM TOPICAL SCH (09:36)
[2023-04-18] MEDS: Zinc Oxide 16% PASTE (Butt Paste) 30 gm TUBE TOPICAL SCH (09:36)
[2023-04-18 11:11] VITALS: BP 126/69
[2023-04-18] MEDS ORDERED: Magnesium Chloride EC 64 mgTAB PO SCH (12:00)
== END 2023-04-18 15:00 | disposition home or self-care (01) | DRG 872 ==
LOC: ED 09:23 → EDHOLD 09:23 → SUATTDRO 15:18 → MED 19:45
PROVIDERS: ADMIT Hospitalist; ATTEND Family Medicine